=== PATIENT | female | born 1935 | race Caucasian/White ===

== ENCOUNTER 2018-01-11 02:23 | Inpatient (IN) | payer MEDICARE, MEDICAID ==
[2018-01-11] VITALS (8 sets, daily range): BP systolic 126–154; BP diastolic 53–101
[~2018-01-11] VITALS: Ht 157.5 cm; Wt 43.6 kg
[~2018-01-11 02:23] MED LIST: ACETAMINOP160 MG/5 M ORAL; ADULT WAL-100 MG/5 M ORAL; BISACODYL5 MG ORAL; GLYTROL250 ML PO; HUMALOG100 UNIT/4 SUBQ; IPRATROPIU0.2 MG/1 M HHN; LOVENOX10 M4 SUBQ; MILK OF MA400 MG/51 ORAL; MULTIVITAMINS1 EAC8 ORAL; NEXIUM40 M2 ORAL; PRO-STAT PROFI887 ML PO; SENNA8.6 M2 PO; TRAMADOL HCL50 MG ORAL; VITAMIN C500 M1 ORAL; XOPENEX1.25 MG/3 HHN; ZINC SULFATE220 M1 ORAL
--- NOTE | 2018-01-11 02:29 | Emergency Room Report ---
History of Present Illness General Chief Complaint: Dyspnea/Respdistress Source: Medical Record, EMS Present Illness HPI This is an unfortunate 82-year-old female from a long-term. She has history of COPD, hypertension, CVA with contractures. She presents with chief complaint of respiratory distress. Per EMS, long-term noted that she was decreasing her saturation and they said that her saturation was in the 60 percentile. EMS was bagging her and put her on oxygen. Onset tonight. She had recently been discharged from [facility] for sepsis with aspiration pneumonia on the left lung. Unable to get any history from this patient because of her condition and she is nonverbal. Unknown CODE status. Allergies: Coded Allergies: No Known Allergies (Verified , 03/10/07) Patient History Past Medical History: see triage record, old chart reviewed, HTN, COPD, CVA/TIA Past Surgical History: other Pertinent Family History: none Social History: Denies: smoking Now: No Immunizations: other Reviewed Nursing Documentation: PMH: Agreed; PSxH: Agreed Nursing Documentation-PMH Past Medical History: No History, Except For Hx Hypertension: Yes - pulmonary HTN Hx COPD: Yes Hx Diabetes: Yes Hx Cerebrovascular Accident: Yes Review of Systems Respiratory: Reports: shortness of breath All Other Systems: limited - secondary to her condition Physical Exam Vital Signs Date Time Temp Pulse Resp B/P (MAP) Pulse Ox O2 Delivery O2 Flow Rate FiO2 01/11/18 02:04 122 26 126/101 91 Bi-pap 100 Sp02 EP Interpretation: reviewed, abnormal General Appearance: cachetic, lethargic, Chronically Ill Head: normocephalic, atraumatic Eyes: bilateral eye PERRL, bilateral eye EOMI ENT: dry mucus membranes Neck: full range of motion, supple, no meningismus Respiratory: chest non-tender, respiratory distress, decreased breath sounds - greatly dimished on left, accessory muscle use, rhonchi Cardiovascular #1: regular rate, rhythm, no murmur Gastrointestinal: normal bowel sounds, non tender, no mass, no organomegaly, no bruit, non-distended Rectal: other - decub ulcer Musculoskeletal: other - contracted. Neurologic: other - moving left hand to grab; contracted Skin: warm/dry Procedures Critical Care Time Critical Care Time Critical care is mandated in this patient who presented with respiratory failure. Patient require my urgent intervention to attenuate the risks of respiratory collapse which may lead to cardiovascular collapse and . Critical care time is 35 minutes excluding any reportable procedure. Critical care time included evaluation, multiple reevaluation, looking at old charts, interpreting laboratory and diagnostic data, discussing case with patient and family and consultants, and charting. Medical Decision Making Diagnostic Impression: Primary Impression: Respiratory failure with hypoxia Qualified Codes: J96.21 - Acute and chronic respiratory failure with hypoxia Additional Impressions: Aspiration pneumonia Qualified Codes: J69.0 - Pneumonitis due to inhalation of food and vomit Hypokalemia Hypocalcemia Dehydration Proteinuria Qualified Codes: R80.9 - Proteinuria, unspecified UTI (urinary tract infection) Qualified Codes: N30.00 - Acute cystitis without hematuria ER Course Patient presents with acute on chronic respiratory failure. She is much improved after IV fluid and BiPAP. Oxygenation is much better now. I suspect she also may have a mucus plugging. We'll admit for IV fluid and IV antibiotics. Based on her insurance, will admit to Dr.Da Agarwal. Laboratory Tests Test 01/11/18 02:15 01/11/18 02:24 01/11/18 02:30 White Blood Count 12.8 K/UL (4.8-10.8) H Red Blood Count 5.31 M/UL (4.20-5.40) Hemoglobin 14.9 G/DL (12.0-16.0) Hematocrit 46.2 % (37.0-47.0) Mean Corpuscular Volume 87 FL (80-99) Mean Corpuscular Hemoglobin 28.0 PG (27.0-31.0) Mean Corpuscular Hemoglobin Concent 32.2 G/DL (32.0-36.0) Red Cell Distribution Width 15.5 % (11.6-14.8) H Platelet Count 384 K/UL (150-450) Mean Platelet Volume 7.7 FL (6.5-10.1) Neutrophils (%) (Auto) 80.0 % (45.0-75.0) H Lymphocytes (%) (Auto) 14.5 % (20.0-45.0) L Monocytes (%) (Auto) 4.1 % (1.0-10.0) Eosinophils (%) (Auto) 0.5 % (0.0-3.0) Basophils (%) (Auto) 0.9 % (0.0-2.0) Prothrombin Time Pending Prothromb Time International Ratio Pending Activated Partial Thromboplast Time Pending Sodium Level 151 MMOL/L (136-145) H Potassium Level 2.4 MMOL/L (3.5-5.1) *L Chloride Level 122 MMOL/L (98-107) H Carbon Dioxide Level 19 MMOL/L (21-32) L Anion Gap 10 mmol/L (5-15) Blood Urea Nitrogen 19 mg/dL (7-18) H Creatinine 0.2 MG/DL (0.55-1.30) L Estimat Glomerular Filtration Rate mL/min (>60) Glucose Level 93 MG/DL (74-106) Lactic Acid Level 1.80 mmol/L (0.66-2.22) Calcium Level 4.6 MG/DL (8.5-10.1) *L Total Bilirubin 0.0 MG/DL (0.2-1.0) L Aspartate Amino Transf (AST/SGOT) 12 U/L (15-37) L Alanine Aminotransferase (ALT/SGPT) 7 U/L (12-78) L Alkaline Phosphatase 47 U/L (46-116) Total Creatine Kinase 23 U/L (26-308) L Creatine Kinase MB 1.5 NG/ML (0.0-3.6) Creatine Kinase MB Relative Index 6.5 Troponin I 0.000 ng/mL (0.000-0.056) Total Protein 4.1 G/DL (6.4-8.2) L Albumin 1.2 G/DL (3.4-5.0) L Globulin 2.9 g/dL Albumin/Globulin Ratio 0.4 (1.0-2.7) L Arterial Blood pH 7.415 (7.350-7.450) Arterial Blood Partial Pressure CO2 46.8 mmHg (35.0-45.0) H Arterial Blood Partial Pressure O2 102.5 mmHg (75.0-100.0) H Arterial Blood HCO3 29.3 mmol/L (22.0-26.0) H Arterial Blood Oxygen Saturation 97.5 % (92.0-98.0) Arterial Blood Base Excess 3.9 Kang Test Positive Urine Color Yellow Urine Appearance Slightly cloudy Urine pH 5 (4.5-8.0) Urine Specific [place] 1.025 (1.005-1.035) Urine Protein 3+ (NEGATIVE) H Urine Glucose (UA) Negative (NEGATIVE) Urine Ketones Negative (NEGATIVE) Urine Occult Blood 2+ (NEGATIVE) H Urine Nitrite Negative (NEGATIVE) Urine Bilirubin Negative (NEGATIVE) Urine Urobilinogen Normal MG/DL (0.0-1.0) Urine Leukocyte Esterase 3+ (NEGATIVE) H Urine RBC 2-4 /HPF (0 - 2) H Urine WBC 40-60 /HPF (0 - 2) H Urine Squamous Epithelial Cells Many /LPF (NONE/OCC) H Urine Calcium Oxalate Crystals Many /LPF (NONE) Urine Bacteria Few /HPF (NONE) Lab Results Impression labs with electrolyte abnormalities EKG Diagnostic Results Rate: tachycardiac Rhythm: NSR ST Segments: no acute changes Rhythm Strip Diag. Results Rhythm Strip Time: 02:29 Rate: 85 Rhythm: NSR, no PVC's, no ectopy Chest X-Ray Diagnostic Results Chest X-Ray Diagnostic Results : Chest X-Ray Ordered: Yes # of Views/Limited/Complete: 1 View Indication: Shortness of Breath EP Interpretation: Yes Interpretation: no effusion, no pneumothorax, other - hyperinflated. rll infiltrate Impression: Other - rll infiltrate Electronically Signed by: Vik Ghotra MD Last Vital Signs Date Time Temp Pulse Resp B/P (MAP) Pulse Ox O2 Delivery O2 Flow Rate FiO2 01/11/18 02:04 122 26 126/101 91 Bi-pap 100 Status: improved Disposition: ADMITTED INPATIENT Condition: Serious VIK GHOTRA M.D. January 11, 2018 02:29
[2018-01-11] MEDS ORDERED: Albuterol ud Inhalation HHN ONE (02:30)
[2018-01-11] MEDS ORDERED: NS 1000ml 1,400 ML IVLG ONE (02:30)
[2018-01-11 02:44] LABS: BASOPHILS % (AUTO) 0.9 % (0.0-2.0); EOSINOPHILS % (AUTO) 0.5 % (0.0-3.0); HEMATOCRIT 46.2 % (37.0-47.0); HEMOGLOBIN 14.9 G/DL (12.0-16.0); LYMPHOCYTES % (AUTO) 14.5 % (20.0-45.0); MEAN CORPUSCULAR VOLUME 87 FL (80-99); MONOCYTES % (AUTO) 4.1 % (1.0-10.0); PLATELET COUNT 384 K/UL (150-450); RED BLOOD COUNT 5.31 M/UL (4.20-5.40); RED CELL DISTRIBUTION WIDTH 15.5 % (11.6-14.8); WHITE BLOOD COUNT 12.8 K/UL (4.8-10.8)
[2018-01-11 02:45] LABS: BILIRUBIN, URINE NEGATIVE (NEGATIVE); GLUCOSE, URINE (UA) NEGATIVE (NEGATIVE); KETONES,URINE NEGATIVE (NEGATIVE); LEUKOCYTE ESTERASE ,URINE 3+ (NEGATIVE); NITRITE,URINE NEGATIVE (NEGATIVE); PH,URINE 5 (4.5-8.0); PROTEIN,URINE 3+ (NEGATIVE); UROBILINOGEN,URINE NORMAL MG/DL (0.0-1.0)
[2018-01-11 02:53] LABS: COLOR,URINE YELLOW
[2018-01-11 02:58] LABS: APPEARANCE,URINE SLIGHTLY CLOUDY
[2018-01-11 03:06] LABS: ALANINE AMINOTRANSFERASE 7 U/L (12-78); ALBUMIN 1.2 G/DL (3.4-5.0); ALBUMIN/GLOBULIN RATIO 0.4 (1.0-2.7); ALKALINE PHOSPHATASE 47 U/L (46-116); ANION GAP 10 mmol/L (5-15); ASPARTATE AMINO TRANSFERASE 12 U/L (15-37); BLOOD UREA NITROGEN 19 mg/dL (7-18); CARBON DIOXIDE 19 MMOL/L (21-32); CHLORIDE 122 MMOL/L (98-107); CKMB 1.5 NG/ML (0.0-3.6); CREATINE KINASE 23 U/L (26-308); CREATININE 0.2 MG/DL (0.55-1.30); SODIUM 151 MMOL/L (136-145)
[2018-01-11 03:08] LABS: POTASSIUM 2.4 MMOL/L (3.5-5.1)
[2018-01-11 03:30] LABS: CALCIUM 4.6 MG/DL (8.5-10.1)
[2018-01-11] MEDS ORDERED: Cefepime HCl 2 GM in D5W 55 ML IVPB ONE (03:30)
[2018-01-11 04:32] LABS: INR 0.9 (0.9-1.1)
[2018-01-11] MEDS ORDERED: Albuterol ud Inhalation HHN PRN (04:45)
[2018-01-11] MEDS ORDERED: Calcium Gluconate 1gm/10ml vial IVP ONE (04:45)
[2018-01-11] MEDS: Heparin 5000 units/ml inj SUBQ SCH ×3 (06:52→21:43)
[2018-01-11] MEDS: Albuterol/Ipratropium 3ml neb HHN SCH ×3 (07:06→19:07)
--- NOTE | 2018-01-11 08:42 | Diagnostic Imaging Report ---
Indication: Reason For Exam: SOB Technique: XRAY Chest 1v Comparison:05/25/2011 Findings: The patient is severely rotated. The aorta is calcified. There is some patchy infiltrate or atelectasis in the right base. The remainder the lungs are grossly clear. No pleural fluid. The bones are diffusely osteopenic. Impression: Atherosclerotic change. Patchy infiltrate or atelectasis right base. Osteopenia.
[2018-01-11] MEDS ORDERED: Docusate 100mg cap ORAL SCH (09:00)
[2018-01-11] MEDS: Aspirin Baby 81mg ORAL SCH (10:06)
[2018-01-11] MEDS ORDERED: NovoLOG Insulin Flexpen SUBQ SCH (11:30)
[2018-01-11 11:36] LABS: ANION GAP 7 mmol/L (5-15); BLOOD UREA NITROGEN 23 mg/dL (7-18); CALCIUM 8.3 MG/DL (8.5-10.1); CARBON DIOXIDE 27 MMOL/L (21-32); CHLORIDE 110 MMOL/L (98-107); CREATININE 0.4 MG/DL (0.55-1.30); POTASSIUM 4.9 MMOL/L (3.5-5.1); SODIUM 143 MMOL/L (136-145)
[2018-01-11] MEDS: Docusate 100mg/10ml Liq GT SCH ×2 (13:42→20:48)
[2018-01-11] MEDS ORDERED: 1/2 NS 1000ml IV ONE (16:26)
--- NOTE | 2018-01-11 16:45 | History and Physical Report ---
DATE OF ADMISSION: 01/11/2018 REASON FOR ADMISSION: 1. Shortness of breath. 2. Pneumonia. 3. Electrolyte abnormalities. HISTORY OF PRESENT ILLNESS: The patient is an 82-year-old female from a intermediate home with known COPD, hypertension, CVA and contractures. She presented in respiratory distress and shortness of breath. EMS was sent to the [place] [facility] and noted she had desaturation of her O2 saturations in the 60 percentile range. EMS did start with oxygen supplementation and she had been recently discharged from [facility] for sepsis secondary to aspiration pneumonia. The patient has an unknown code status. At this time, she has been placed on BiPAP and is in the [facility], currently stable, being treated with IV antibiotics and on noninvasive positive pressure ventilation. ALLERGIES: No known drug allergies. PAST MEDICAL HISTORY: 1. Hypertension. 2. COPD. 3. Contractures. 4. CVA/TIA. SOCIAL HISTORY: No current tobacco, alcohol, or illicit drug use. PAST SURGICAL HISTORY: Noncontributory. FAMILY HISTORY: Unknown. REVIEW OF SYSTEMS: Cannot obtain, as the patient is on BiPAP and not answering questions. LABORATORY AND DIAGNOSTIC DATA: Labs dated 01/11/2018 potassium 2.4, sodium 151, CO2 19, creatinine 0.2, BUN 19, calcium 4.6. Normal LFTs. Troponin of 0. Albumin 1.2. Hemoglobin 14.9, white cell count 12.8, and platelet count 384. PHYSICAL EXAMINATION: GENERAL: The patient in mild respiratory distress, on noninvasive positive pressure ventilation. HEENT: Extraocular muscles intact. No lymphadenopathy noted. CARDIOVASCULAR: S1, S2. No rubs, gallops. PULMONARY: Mild upper airway rhonchi with basilar crackles. ABDOMEN: Nondistended, nontender. EXTREMITIES: No edema noted. Contractures noted. VITAL SIGNS: Blood pressure 154/53, temperature 97.5, pulse 87, on BiPAP FiO2 of 100. ASSESSMENT AND PLAN: 1. Nosocomial acquired pneumonia. Recent discharge from [facility]. Chest x-ray done shows the possibility of patchy infiltrates, pneumonia at the right lung base. The patient will be started on intravenous antibiotics and currently on BiPAP. Consultation to Pulmonary Critical Care Dr. Coronado has been placed for further evaluation and management. 2. Electrolyte abnormalities consisting of hypocalcemia and hypokalemia. At this time, the patient is being replaced with calcium and potassium. We will repeat labs at 11 a.m. 3. Hypernatremia with a serum sodium 151. Patient on hypotonic intravenous fluids. Repeat labs at 11 a.m. today. 4. Deep venous thrombosis prophylaxis with heparin subcutaneous. 5. Respiratory failure secondary to hypercapnic, etiology with underlying pneumonia. BiPAP in place. Await Pulmonary Critical Care for further evaluation and management. Jorge Graf MD DR: ELMER JOB#: [id number] CC: SMOOTH
[2018-01-11] MEDS: NovoLOG Insulin Flexpen SUBQ SCH (17:06)
--- NOTE | 2018-01-11 23:15 | Consultation ---
DATE OF CONSULTATION: 01/11/2018 PULMONARY CONSULTATION CONSULTING PHYSICIAN: Chase Coronado M.D. REFERRING PHYSICIAN: Jorge Graf MD REASON FOR CONSULTATION: COPD and pneumonia. HISTORY OF PRESENT ILLNESS: This is an 82-year-old female, a residential patient with a known history of COPD. The patient complains of shortness of breath and pneumonia. The patient noted to have significant oxygen desaturation and upon arrival was placed on oxygen. The patient has been admitted for sepsis and pneumonia to an outside facility. The patient placed on BiPAP, sent to [facility], started on IV antibiotics. I was called to assist and evaluate further. The patient is slightly tachypneic at present. The patient is now off BiPAP on recent evaluation in face mask. The patient's care discussed and reviewed. The patient's oxygen needs reviewed. The patient is requiring significant amount of oxygen at present. The patient is a poor historian. Care discussed and reviewed. PAST MEDICAL HISTORY: Notable for COPD, contractures, CVA, TIA. PAST SURGICAL HISTORY: Otherwise unknown. SOCIAL HISTORY: Nonsmoker and nondrinker. The patient is retired. FAMILY HISTORY: Otherwise unknown. REVIEW OF SYSTEMS: Unobtainable. PHYSICAL EXAMINATION: GENERAL: The patient is an ill-appearing female. VITAL SIGNS: Blood pressure 145/60, pulse 92, respiratory rate 24, saturation 99%, temperature 98. HEENT: Negative. NECK: Supple. LUNGS: With scattered rhonchi moderate. Air entry reduced. CARDIAC: Normal S1, S2. Regular rate and rhythm. Soft systolic murmur at left parasternal border. ABDOMEN: Soft, nontender EXTREMITIES: No cyanosis or clubbing. SKIN: Noted and reviewed. LABORATORY DATA: Lab data reviewed. White cell count 12.8, hematocrit 46, and platelets of 384. Chemistries noted BUN 23, creatinine 0.4, potassium 4.9. Arterial blood gases notable for pH 7.41, pCO2 46, pO2 102. Chest x-ray revealed infiltrate. IMPRESSION: Profound hypoxemia, underlying pneumonia, possible mucous plugging. Concern for risk of DVT. No clear evidence of fluid overload,advanced age, dementia. RECOMMENDATIONS: Supportive care. IV hydration with caution. DVT prophylaxis. Levaquin written. We will give additional antibiotics, place the patient on vancomycin as well. Obtain a stat venous ultrasound, followup x-ray and taper FiO2. I will follow clinically and monitor. Low threshold for ICU. Chase Coronado M.D. DR: NICHOL JOB#: [id number] CC: SMOOTH
[2018-01-12] VITALS: BP 150/80
[2018-01-12] MEDS: Albuterol/Ipratropium 3ml neb HHN SCH ×4 (00:32→19:43)
[2018-01-12 03:16] LABS: BASOPHILS % (AUTO) 0.9 % (0.0-2.0); EOSINOPHILS % (AUTO) 0.8 % (0.0-3.0); HEMATOCRIT 38.1 % (37.0-47.0); HEMOGLOBIN 12.2 G/DL (12.0-16.0); LYMPHOCYTES % (AUTO) 11.2 % (20.0-45.0); MEAN CORPUSCULAR VOLUME 87 FL (80-99); MONOCYTES % (AUTO) 4.9 % (1.0-10.0); NEUTROPHILS % (AUTO) 82.3 % (45.0-75.0); PLATELET COUNT 270 K/UL (150-450); RED BLOOD COUNT 4.38 M/UL (4.20-5.40); RED CELL DISTRIBUTION WIDTH 14.9 % (11.6-14.8); WHITE BLOOD COUNT 11.3 K/UL (4.8-10.8)
[2018-01-12 03:35] LABS: ANION GAP 5 mmol/L (5-15); BLOOD UREA NITROGEN 14 mg/dL (7-18); CALCIUM 8.4 MG/DL (8.5-10.1); CARBON DIOXIDE 28 MMOL/L (21-32); CHLORIDE 105 MMOL/L (98-107); CREATININE 0.4 MG/DL (0.55-1.30); SODIUM 138 MMOL/L (136-145)
[2018-01-12 04:00] VITALS: BP 145/85
[2018-01-12] MEDS: NovoLOG Insulin Flexpen SUBQ SCH ×4 (06:00→17:07)
[2018-01-12] MEDS: Heparin 5000 units/ml inj SUBQ SCH ×3 (06:07→21:57)
[2018-01-12 08:00] VITALS: BP 146/71
[2018-01-12] MEDS: Docusate 100mg/10ml Liq GT SCH ×2 (08:02→20:36)
[2018-01-12] MEDS: Aspirin Baby 81mg ORAL SCH (08:02)
--- NOTE | 2018-01-12 08:19 | Nephrology Progress Note ---
Assessment/Plan Assessment/Plan 1. Resp FL- Nosocomial PNA - on BiPAP, appreciate Pulm assistance, Abx initiated - full code and low threshold for ICU tx 2. PNA- Abx 3. Nutrition- on TF's, will DC IVF's 4. DM- Glucerna and ISS 5. DVT Prophylaxis with heparin sub q Subjective Date patient seen: January 12, 2018 Time patient seen: 08:16 ROS Limited/Unobtainable: Yes Respiratory: Reports: shortness of breath Allergies: Coded Allergies: No Known Allergies (Verified , 03/10/07) Subjective Patient remains on NIPPV Objective Last 24 Hour Vital Signs Date Time Temp Pulse Resp B/P (MAP) Pulse Ox O2 Delivery O2 Flow Rate FiO2 01/12/18 08:00 50 01/12/18 07:17 85 29 99 Bi-pap 80 01/12/18 07:12 85 25 99 Facial 50 01/12/18 07:12 83 22 99 Bi-pap 80 01/12/18 04:58 94 29 99 Facial 80 01/12/18 04:00 98.8 93 24 145/85 99 80 98.8 01/12/18 04:00 80 01/12/18 04:00 90 01/12/18 03:06 87 29 100 Facial 80 01/12/18 00:43 84 32 99 Bi-pap 100 01/12/18 00:32 76 22 99 Bi-pap 100 01/12/18 00:32 76 22 99 Facial 100 01/12/18 00:00 68 01/12/18 00:00 98.4 79 24 150/80 99 100 98.4 01/11/18 22:55 81 33 99 Facial 100 01/11/18 20:44 67 28 100 Facial 100 01/11/18 20:00 70 01/11/18 20:00 97.7 94 24 142/90 99 100 97.7 01/11/18 20:00 100 01/11/18 19:16 88 26 99 Bi-pap 100 01/11/18 19:08 78 23 99 Bi-pap 100 01/11/18 19:07 73 22 99 Facial 100 01/11/18 17:33 100 01/11/18 17:05 99 100 01/11/18 17:00 85 70 01/11/18 16:59 98.0 92 24 145/60 99 70 98.0 01/11/18 16:34 78 29 100 Facial 70 01/11/18 16:00 83 01/11/18 15:24 83 30 100 Facial 80 01/11/18 13:40 85 34 100 Bi-pap 100 01/11/18 13:28 88 23 98 Facial 100 01/11/18 13:28 85 23 98 Bi-pap 100 01/11/18 13:15 100 100 01/11/18 13:00 100 01/11/18 13:00 72 50 01/11/18 12:15 98.0 110 26 154/53 98 Bi-pap 60 98.0 01/11/18 12:00 50 01/11/18 11:58 96 01/11/18 11:23 88 36 98 Facial 50 01/11/18 11:00 50 01/11/18 11:00 99 60 01/11/18 10:00 60 01/11/18 09:25 86 40 100 Facial 60 Intake and Output 01/11/18 01/12/18 19:00 07:00 Intake Total 525 ml 1273 ml Output Total 1000 ml 900 ml Balance -475 ml 373 ml Free Water 290 ml 0 ml IV Total 75 ml 833 ml Tube Feeding 160 ml 440 ml Output Urine Total 1000 ml 900 ml # Bowel Movements 4 Laboratory Tests 01/11/18 11:10: Sodium Level 143, Potassium Level 4.9#, Chloride Level 110H, Carbon Dioxide Level 27, Anion Gap 7, Blood Urea Nitrogen 23H, Creatinine 0.4#L, Estimat Glomerular Filtration Rate , Glucose Level 98, Calcium Level 8.3#L, Magnesium Level 1.9 01/12/18 02:30: Sodium Level 138, Potassium Level 4.0, Chloride Level 105, Carbon Dioxide Level 28, Anion Gap 5, Blood Urea Nitrogen 14, Creatinine 0.4L, Estimat Glomerular Filtration Rate , Glucose Level 116H, Calcium Level 8.4L, White Blood Count 11.3H, Red Blood Count 4.38, Hemoglobin 12.2, Hematocrit 38.1, Mean Corpuscular Volume 87, Mean Corpuscular Hemoglobin 27.9, Mean Corpuscular Hemoglobin Concent 32.0, Red Cell Distribution Width 14.9H, Platelet Count 270, Mean Platelet Volume 7.8, Neutrophils (%) (Auto) 82.3H, Lymphocytes (%) (Auto) 11.2L , Monocytes (%) (Auto) 4.9, Eosinophils (%) (Auto) 0.8, Basophils (%) (Auto) 0.9 Height (Feet): 5 Height (Inches): 2.00 Weight (Pounds): 99 General Appearance: confused EENT: PERRL/EOMI Neck: normal alignment, supple Cardiovascular: normal rate, regular rhythm Respiratory/Chest: no accessory muscle use, rhonchi - bilaterally Edema: no edema noted Arm (L), no edema noted Arm (R), no edema noted Leg (L), no edema noted Leg (R), no edema noted Pedal (L), no edema noted Pedal (R), no edema noted Generalized Jorge Graf M.D. January 12, 2018 08:19
--- NOTE | 2018-01-12 11:45 | Pulmonology Progress Note ---
Assessment/Plan Assessment/Plan IMPRESSION: Profound hypoxemia, underlying pneumonia, possible mucous plugging. Concern for risk of DVT. advanced age, dementia. acute on chronic encephalopathy PLAN care as is respiratory care venous US ordered CXR and ABG repeat ordered antibiotics check cultures monitor as is impression, plan, and exam edited and reviewed in detail care discussed with RN Subjective ROS Limited/Unobtainable: Yes Allergies: Coded Allergies: No Known Allergies (Verified , 03/10/07) Subjective on BIPAP earlier now on face mask with improved oxygenation Objective Last 24 Hour Vital Signs Date Time Temp Pulse Resp B/P (MAP) Pulse Ox O2 Delivery O2 Flow Rate FiO2 01/12/18 10:31 75 29 100 Facial 50 01/12/18 08:46 81 28 95 Facial 100 01/12/18 08:00 97.7 73 16 146/71 96 50 97.7 01/12/18 08:00 94 01/12/18 08:00 50 01/12/18 07:17 85 29 99 Bi-pap 80 01/12/18 07:12 85 25 99 Facial 50 01/12/18 07:12 83 22 99 Bi-pap 80 01/12/18 04:58 94 29 99 Facial 80 01/12/18 04:00 98.8 93 24 145/85 99 80 98.8 01/12/18 04:00 80 01/12/18 04:00 90 01/12/18 03:06 87 29 100 Facial 80 01/12/18 00:43 84 32 99 Bi-pap 100 01/12/18 00:32 76 22 99 Bi-pap 100 01/12/18 00:32 76 22 99 Facial 100 01/12/18 00:00 68 01/12/18 00:00 98.4 79 24 150/80 99 100 98.4 01/11/18 22:55 81 33 99 Facial 100 01/11/18 20:44 67 28 100 Facial 100 01/11/18 20:00 70 01/11/18 20:00 97.7 94 24 142/90 99 100 97.7 01/11/18 20:00 100 01/11/18 19:16 88 26 99 Bi-pap 100 01/11/18 19:08 78 23 99 Bi-pap 100 01/11/18 19:07 73 22 99 Facial 100 01/11/18 17:33 100 01/11/18 17:05 99 100 5/28/18 17:00 85 70 01/11/18 16:59 98.0 92 24 145/60 99 70 98.0 01/11/18 16:34 78 29 100 Facial 70 01/11/18 16:00 83 01/11/18 15:24 83 30 100 Facial 80 01/11/18 13:40 85 34 100 Bi-pap 100 01/11/18 13:28 88 23 98 Facial 100 01/11/18 13:28 85 23 98 Bi-pap 100 01/11/18 13:15 100 100 01/11/18 13:00 100 01/11/18 13:00 72 50 01/11/18 12:15 98.0 110 26 154/53 98 Bi-pap 60 98.0 01/11/18 12:00 50 01/11/18 11:58 96 Intake and Output 01/11/18 01/12/18 19:00 07:00 Intake Total 525 ml 1273 ml Output Total 1000 ml 900 ml Balance -475 ml 373 ml Free Water 290 ml 0 ml IV Total 75 ml 833 ml Tube Feeding 160 ml 440 ml Output Urine Total 1000 ml 900 ml # Bowel Movements 4 Objective GENERAL: The patient is an ill-appearing female. reduced LOC. HEENT: Negative. NECK: Supple. LUNGS: + rhonchi moderate. Air entry reduced. CARDIAC: Normal S1, S2. Regular rate and rhythm. Soft systolic murmur at left parasternal border. ABDOMEN: Soft, nontender. GT and no distention EXTREMITIES: No cyanosis or clubbing. SKIN: Noted and reviewed. Microbiology Date/Time Source Procedure Growth Status 01/11/18 02:30 Blood Blood Culture - Preliminary NO GROWTH AFTER 24 HOURS Resulted 01/11/18 02:15 Blood Blood Culture - Preliminary NO GROWTH AFTER 24 HOURS Resulted 01/11/18 02:30 Urine,Clean Catch Urine Culture - Preliminary NO GROWTH Resulted Laboratory Tests 01/12/18 02:30: White Blood Count 11.3H, Red Blood Count 4.38, Hemoglobin 12.2, Hematocrit 38.1 , Mean Corpuscular Volume 87, Mean Corpuscular Hemoglobin 27.9, Mean Corpuscular Hemoglobin Concent 32.0, Red Cell Distribution Width 14.9H, Platelet Count 270, Mean Platelet Volume 7.8, Neutrophils (%) (Auto) 82.3H, Lymphocytes (%) (Auto) 11.2L, Monocytes (%) (Auto) 4.9, Eosinophils (%) (Auto) 0.8, Basophils (%) (Auto) 0.9, Sodium Level 138, Potassium Level 4.0, Chloride Level 105, Carbon Dioxide Level 28, Anion Gap 5, Blood Urea Nitrogen 14, Creatinine 0.4L, Estimat Glomerular Filtration Rate , Glucose Level 116H, Calcium Level 8.4L Current Medications Medications (Trade) Dose Ordered Sig/[place] Route PRN Reason Start Time Stop Time Status Last Admin Dose Admin Acetaminophen (Tylenol) 650 mg Q4H PRN ORAL Mild Pain (Pain Scale 1-3) 01/11/18 04:45 02/10/18 04:44 Albuterol Sulfate (Proventil) 2.5 mg Q6H PRN HHN Shortness of Breath 01/11/18 04:45 01/16/18 04:44 Albuterol/ Ipratropium (Albuterol/ Ipratropium) 3 ml EVERY 6 HOURS HHN 01/11/18 06:00 01/16/18 05:59 01/12/18 07:13 Aspirin (ASA) 81 mg DAILY ORAL 01/11/18 09:00 02/10/18 08:59 01/12/18 08:02 Dextrose (Dextrose 50%) 25 ml STAT PRN IV Hypoglycemia 01/11/18 04:45 02/10/18 04:44 Dextrose (Dextrose 50%) 50 ml STAT PRN IV Hypoglycemia 01/11/18 04:45 02/10/18 04:44 Docusate Sodium (Colace) 100 mg EVERY 12 HOURS GT 01/11/18 11:00 02/10/18 10:59 01/11/18 20:48 Heparin Sodium (Porcine) (Heparin 5000 units/ml) 5,000 units EVERY 8 HOURS SUBQ 01/11/18 06:00 02/10/18 05:59 01/12/18 06:07 Insulin Aspart (NovoLOG) EVERY 6 HOURS SUBQ 01/11/18 18:00 02/10/18 11:29 Levofloxacin 150 ml @ 100 mls/hr Q48H IVPB 01/13/18 04:00 01/20/18 03:59 Ondansetron HCl (Zofran) 4 mg Q6H PRN IVP Nausea & Vomiting 01/11/18 04:45 02/10/18 04:44 Chase Coronado MD January 12, 2018 11:45
[2018-01-12 12:00] VITALS: BP 130/77
--- NOTE | 2018-01-12 12:39 | Infectious Diseases Prog Note ---
Assessment/Plan Problems: (1) Aspiration pneumonia Assessment & Plan: will send sputum culture and start vancomycin with zosyn empiric coverage , monitor CXR, with aspiration precaution and keep HOB > 30 degree all the time (2) Sacral wound Assessment & Plan: will order culture, keep off loading, recommend local wound care and dressing change . will start wide spectrum antibiotics (3) UTI (urinary tract infection) Assessment & Plan: will start zosyn pending culture result (4) Sepsis Assessment & Plan: due to the above, will start vancomycin and zosyn empirically pending final blood culture result . will obtain 2D echo to rule out any valve vegetations (5) Respiratory failure with hypoxia Assessment & Plan: due to the above, continue high flow oxygen, monitor CXR and ABG, pulmonary is following Subjective Allergies: Coded Allergies: No Known Allergies (Verified , 03/10/07) Objective Vital Signs Last 24 Hour Vital Signs Date Time Temp Pulse Resp B/P (MAP) Pulse Ox O2 Delivery O2 Flow Rate FiO2 01/12/18 12:00 50 01/12/18 10:31 75 29 100 Facial 50 01/12/18 08:46 81 28 95 Facial 100 01/12/18 08:00 97.7 73 16 146/71 96 50 97.7 01/12/18 08:00 94 01/12/18 08:00 50 01/12/18 07:17 85 29 99 Bi-pap 80 01/12/18 07:12 85 25 99 Facial 50 01/12/18 07:12 83 22 99 Bi-pap 80 01/12/18 04:58 94 29 99 Facial 80 01/12/18 04:00 98.8 93 24 145/85 99 80 98.8 01/12/18 04:00 80 01/12/18 04:00 90 01/12/18 03:06 87 29 100 Facial 80 01/12/18 00:43 84 32 99 Bi-pap 100 01/12/18 00:32 76 22 99 Bi-pap 100 01/12/18 00:32 76 22 99 Facial 100 01/12/18 00:00 68 01/12/18 00:00 98.4 79 24 150/80 99 100 98.4 01/11/18 22:55 81 33 99 Facial 100 01/11/18 20:44 67 28 100 Facial 100 01/11/18 20:00 70 01/11/18 20:00 97.7 94 24 142/90 99 100 97.7 01/11/18 20:00 100 01/11/18 19:16 88 26 99 Bi-pap 100 01/11/18 19:08 78 23 99 Bi-pap 100 01/11/18 19:07 73 22 99 Facial 100 01/11/18 17:33 100 01/11/18 17:05 99 100 01/11/18 17:00 85 70 01/11/18 16:59 98.0 92 24 145/60 99 70 98.0 01/11/18 16:34 78 29 100 Facial 70 01/11/18 16:00 83 01/11/18 15:24 83 30 100 Facial 80 01/11/18 13:40 85 34 100 Bi-pap 100 01/11/18 13:28 88 23 98 Facial 100 01/11/18 13:28 85 23 98 Bi-pap 100 01/11/18 13:15 100 100 01/11/18 13:00 100 01/11/18 13:00 72 50 Height (Feet): 5 Height (Inches): 2.00 Weight (Pounds): 99 Microbiology Date/Time Source Procedure Growth Status 01/11/18 02:30 Blood Blood Culture - Preliminary Resulted 01/11/18 02:15 Blood Blood Culture - Preliminary Resulted 01/11/18 02:30 Urine,Clean Catch Urine Culture - Preliminary NO GROWTH Resulted Laboratory Tests Test 01/12/18 02:30 01/12/18 11:50 White Blood Count 11.3 K/UL (4.8-10.8) H Red Blood Count 4.38 M/UL (4.20-5.40) Hemoglobin 12.2 G/DL (12.0-16.0) Hematocrit 38.1 % (37.0-47.0) Mean Corpuscular Volume 87 FL (80-99) Mean Corpuscular Hemoglobin 27.9 PG (27.0-31.0) Mean Corpuscular Hemoglobin Concent 32.0 G/DL (32.0-36.0) Red Cell Distribution Width 14.9 % (11.6-14.8) H Platelet Count 270 K/UL (150-450) Mean Platelet Volume 7.8 FL (6.5-10.1) Neutrophils (%) (Auto) 82.3 % (45.0-75.0) H Lymphocytes (%) (Auto) 11.2 % (20.0-45.0) L Monocytes (%) (Auto) 4.9 % (1.0-10.0) Eosinophils (%) (Auto) 0.8 % (0.0-3.0) Basophils (%) (Auto) 0.9 % (0.0-2.0) Sodium Level 138 MMOL/L (136-145) Potassium Level 4.0 MMOL/L (3.5-5.1) Chloride Level 105 MMOL/L (98-107) Carbon Dioxide Level 28 MMOL/L (21-32) Anion Gap 5 mmol/L (5-15) Blood Urea Nitrogen 14 mg/dL (7-18) Creatinine 0.4 MG/DL (0.55-1.30) L Estimat Glomerular Filtration Rate mL/min (>60) Glucose Level 116 MG/DL (74-106) H Calcium Level 8.4 MG/DL (8.5-10.1) L Arterial Blood pH 7.446 (7.350-7.450) Arterial Blood Partial Pressure CO2 43.3 mmHg (35.0-45.0) Arterial Blood Partial Pressure O2 109.0 mmHg (75.0-100.0) H Arterial Blood HCO3 29.1 mmol/L (22.0-26.0) H Arterial Blood Oxygen Saturation 98.1 % (92.0-98.0) H Arterial Blood Base Excess 4.6 Kang Test Positive Current Medications Medications (Trade) Dose Ordered Sig/Rosetta Route PRN Reason Start Time Stop Time Status Last Admin Dose Admin Acetaminophen (Tylenol) 650 mg Q4H PRN ORAL Mild Pain (Pain Scale 1-3) 01/11/18 04:45 02/10/18 04:44 Albuterol Sulfate (Proventil) 2.5 mg Q6H PRN HHN Shortness of Breath 01/11/18 04:45 01/16/18 04:44 Albuterol/ Ipratropium (Albuterol/ Ipratropium) 3 ml EVERY 6 HOURS HHN 01/11/18 06:00 01/16/18 05:59 01/12/18 07:13 Aspirin (ASA) 81 mg DAILY ORAL 01/11/18 09:00 02/10/18 08:59 01/12/18 08:02 Dextrose (Dextrose 50%) 25 ml STAT PRN IV Hypoglycemia 01/11/18 04:45 02/10/18 04:44 Dextrose (Dextrose 50%) 50 ml STAT PRN IV Hypoglycemia 01/11/18 04:45 02/10/18 04:44 Docusate Sodium (Colace) 100 mg EVERY 12 HOURS GT 01/11/18 11:00 02/10/18 10:59 01/11/18 20:48 Heparin Sodium (Porcine) (Heparin 5000 units/ml) 5,000 units EVERY 8 HOURS SUBQ 01/11/18 06:00 02/10/18 05:59 01/12/18 06:07 Insulin Aspart (NovoLOG) EVERY 6 HOURS SUBQ 01/11/18 18:00 02/10/18 11:29 01/12/18 12:00 Levofloxacin 150 ml @ 100 mls/hr Q48H IVPB 01/13/18 04:00 01/20/18 03:59 Ondansetron HCl (Zofran) 4 mg Q6H PRN IVP Nausea & Vomiting 01/11/18 04:45 02/10/18 04:44 Dom Hoffman M.D. January 12, 2018 12:39
[2018-01-12] MEDS ORDERED: Vancomycin 1gm/D5W 275ml IVPB ONE ×2 (13:30)
--- NOTE | 2018-01-12 14:36 | Diagnostic Imaging Report ---
Indication: Dyspnea Comparison: 01/11/2018 A single view chest radiograph was obtained. Findings: Suspected infiltrate at the left lung base. Small effusions not excluded. Heart size is normal. Bones are osteopenic. Aorta is moderately calcified. Gastrostomy noted. IMPRESSION: Suspicion of a left basilar pneumonia. Correlate clinically
[2018-01-12] MEDS ORDERED: Piperacillin/Tazobactam 3.375 GM in D5W 110 ML IVPB SCH (15:00)
[2018-01-12] MEDS: Zosyn 3.375gm q8h **Extended infusion IVPB SCH ×4 (15:57→21:52)
[2018-01-12 16:00] VITALS: BP 111/77
--- NOTE | 2018-01-12 17:15 | Consultation ---
DATE OF CONSULTATION: 01/12/2018 INFECTIOUS DISEASE CONSULTATION CONSULTING PHYSICIAN: Dom Hoffman M.D. REQUESTING PHYSICIAN: Jorge Graf M.D. REASON FOR CONSULTATION: Sepsis with gram-positive cocci in cluster, pneumonia and UTI. Recommendation for antibiotics treatment and further management. HISTORY OF PRESENT ILLNESS: The patient is an 82-year-old female with past medical history of CVA with residual and contractures, COPD and hypertension, [facility], was transferred to [facility] for worsening shortness of breath. The patient [facility]ating at the [facility] where [facility] and her oxygen saturation was found to be at the 60 percentile range. So, she was started on oxygen supplementation and was brought in to [facility] Emergency Room for further evaluation. The patient was recently discharged from [facility] for sepsis and aspiration pneumonia, unclear what antibiotics she received there. The patient was started on BiPAP and admitted to the [facility] unit, started on Levaquin by the admitting team. Blood culture was obtained in the emergency room and now it is growing gram-positive cocci in cluster in two sets, concerning for sepsis. So, Infectious Disease consultation was requested for further evaluation and management. As of note, the patient is poor historian, cannot provide any history. History was mainly obtained from the medical record and nursing staff. PAST MEDICAL HISTORY: Significant for hypertension, COPD, and CVA with residual and contractions. PAST SURGICAL HISTORY: PEG tube placement. ALLERGY: No known drug allergy. MEDICATIONS: She is currently on levofloxacin. For the rest of her medications, please refer to MAR. SOCIAL HISTORY: The patient lives at [facility]. No recent drugs, tobacco, or alcohol. FAMILY HISTORY: Unable to obtain. REVIEW OF SYSTEMS: Unable to obtain, the patient is poor historian. PHYSICAL EXAMINATION: GENERAL: Elderly female, demented, cachectic with contraction, on BiPAP seems comfortable, not agitated, not in distress. VITAL SIGNS: Temperature 97.3 degrees, pulse 83, respirations 20, blood pressure 130/77 and saturation 99% on 50% via facial mask. HEENT: Unable to evaluate pupils. The patient does not follow commands. Unable to see oral mucosa since she has BiPAP mask on, but normocephalic and atraumatic in general. NECK: Supple. No lymphadenopathy. CARDIOVASCULAR: She was tachycardic. S1 and S2 normal. No murmurs. LUNGS: She had diminished breathing sounds at the right lower lobe with crackles. No wheezing or rhonchi. Good inspiratory efforts. ABDOMEN: Soft, nontender, nondistended. Normal bowel sounds. No hepatosplenomegaly or ascites. No rebound. Tube feeding site looks intact. EXTREMITY: Contracted with muscle atrophy. SKIN: She had sacral wound stage III with granulation and exudate. There is membrane covering the center. No significant skin redness or erythema surrounding the wound. No foul smell or drainage. Chronic stasis dermatitis surrounding the sacral wound. She has also right foot lateral wound with scabs. There is also left hip pressure wound with good granulation at the base and mild exudative membrane. LABORATORY AND DIAGNOSTIC DATA: Labs showed white count of 11.3, hemoglobin of 12.2 and platelet count of 270. BUN of 14 and creatinine of 0.4. AST of 12 and ALT of 7. Urinalysis showed +3 leukocyte esterase, wbc 40 to 60, and few bacteria. Microbiology, blood culture x2 is growing gram-positive cocci in clusters from both bottles. Urine culture showed no growth so far. Imaging, chest x-ray showed patchy infiltrates at the right lung base. ASSESSMENT AND RECOMMENDATION: 1. Aspiration pneumonia. We will send sputum culture and start vancomycin with Zosyn empiric coverage to cover for MRSA and Pseudomonas since she is a [facility] patient. Monitor chest x-ray. Keep aspiration precaution and head off bed more than 30-degree all the time. 2. Sacral wound, does not look like infected. We will order culture. Keep offloading. Recommend local wound care and dressing change. The patient will be on wide-spectrum antibiotics mainly. 3. UTI. We will start Zosyn empiric treatment pending culture results. 4. Sepsis due to the above with gram-positive cocci in clusters, most likely Staph aureus. Source mainly the sacral wound. We will start vancomycin and Zosyn empiric coverage for now pending final blood culture results. We will obtain 2D echocardiogram to rule out any vegetation and we will repeat blood culture to confirm resolution of bacteremia. 5. Respiratory failure with hypoxemia due to the above. Continue high-flow oxygen. Monitor chest x-ray and ABG. Pulmonary team is following. Thank you for the consult. ID will continue to follow. Dom Hoffman M.D. DR: DEEPA JOB#: [id number] CC:
[2018-01-12 20:00] VITALS: BP 106/65
[2018-01-13] VITALS: BP 111/60
[2018-01-13] MEDS: NovoLOG Insulin Flexpen SUBQ SCH ×4 (00:01→17:11)
[2018-01-13] MEDS: Albuterol/Ipratropium 3ml neb HHN SCH ×4 (00:55→18:57)
[2018-01-13 03:32] VITALS: BP 132/78
[2018-01-13 04:42] LABS: BASOPHILS % (AUTO) 0.7 % (0.0-2.0); EOSINOPHILS % (AUTO) 1.2 % (0.0-3.0); HEMOGLOBIN 12.4 G/DL (12.0-16.0); MEAN CORPUSCULAR VOLUME 88 FL (80-99); MONOCYTES % (AUTO) 5.2 % (1.0-10.0); PLATELET COUNT 246 K/UL (150-450); RED BLOOD COUNT 4.33 M/UL (4.20-5.40); RED CELL DISTRIBUTION WIDTH 15.5 % (11.6-14.8); WHITE BLOOD COUNT 9.9 K/UL (4.8-10.8)
[2018-01-13 04:49] LABS: ANION GAP 5 mmol/L (5-15); BLOOD UREA NITROGEN 12 mg/dL (7-18); CALCIUM 8.9 MG/DL (8.5-10.1); CARBON DIOXIDE 32 MMOL/L (21-32); CHLORIDE 102 MMOL/L (98-107); CREATININE 0.5 MG/DL (0.55-1.30); SODIUM 139 MMOL/L (136-145)
[2018-01-13] MEDS: Zosyn 3.375gm q8h **Extended infusion IVPB SCH ×6 (05:54→22:50)
[2018-01-13] MEDS: Heparin 5000 units/ml inj SUBQ SCH ×3 (05:57→21:12)
[2018-01-13 08:00] VITALS: BP 106/56
--- NOTE | 2018-01-13 08:58 | Nephrology Progress Note ---
Assessment/Plan Assessment/Plan 1. Resp FL- Nosocomial PNA - on BiPAP and Abx. Appreciate ID and Pulm assistance 2. PNA- Abx 3. Nutrition- on TF's 4. DM- Glucerna and ISS 5. DVT Prophylaxis with heparin sub q 6. Afib- new onset, cardiology consulted Patient full code Subjective Date patient seen: January 13, 2018 Time patient seen: 08:55 ROS Limited/Unobtainable: Yes Allergies: Coded Allergies: No Known Allergies (Verified , 03/10/07) Subjective Patient converted to AFib. on BiPAP Objective Last 24 Hour Vital Signs Date Time Temp Pulse Resp B/P (MAP) Pulse Ox O2 Delivery O2 Flow Rate FiO2 01/13/18 07:10 68 30 100 Facial 40 01/13/18 07:07 93 27 100 Bi-pap 40 01/13/18 05:43 153 01/13/18 05:28 84 29 96 Facial 40 01/13/18 04:00 5.0 01/13/18 04:00 87 01/13/18 03:32 97.8 90 34 132/78 99 Bi-pap 40 97.8 01/13/18 02:35 79 28 98 Facial 40 01/13/18 00:56 85 27 100 Bi-pap 40 01/13/18 00:50 82 30 100 Bi-pap 40 01/13/18 00:30 84 26 93 Facial 40 01/13/18 00:00 96 01/13/18 00:00 98.1 99 26 111/60 93 Nasal Cannula 5.0 98.1 01/13/18 00:00 5.0 01/12/18 22:50 72 20 97 01/12/18 21:09 81 20 94 01/12/18 20:00 89 01/12/18 20:00 98.1 104 24 106/65 93 Nasal Cannula 5.0 98.1 01/12/18 20:00 5.0 01/12/18 19:05 Nasal Cannula 2.0 28 01/12/18 19:05 Room Air 21 01/12/18 18:46 75 22 96 01/12/18 16:30 80 20 95 01/12/18 16:00 97.9 94 22 111/77 92 Nasal Cannula 5.0 97.9 01/12/18 16:00 89 01/12/18 15:46 5.0 01/12/18 15:40 75 24 95 Facial 40 01/12/18 13:38 80 29 97 Bi-pap 40 01/12/18 13:31 81 28 97 Bi-pap 40 01/12/18 13:31 75 28 9 Facial 40 01/12/18 12:00 97.3 72 20 130/77 99 50 97.3 01/12/18 12:00 83 01/12/18 12:00 50 01/12/18 10:31 75 29 100 Facial 50 Intake and Output 01/12/18 01/13/18 19:00 07:00 Intake Total 942.500 ml 480.0 ml Output Total 850 ml 800 ml Balance 92.500 ml -320.0 ml Free Water 50 ml IV Total 432.500 ml 110.0 ml Tube Feeding 480 ml 320 ml Other 30 ml Output Urine Total 850 ml 800 ml Laboratory Tests 01/12/18 11:50: Arterial Blood pH 7.446, Arterial Blood Partial Pressure CO2 43.3, Arterial Blood Partial Pressure O2 109.0H, Arterial Blood HCO3 29.1H, Arterial Blood Oxygen Saturation 98.1H, Arterial Blood Base Excess 4.6, Kang Test Positive 01/13/18 04:00: White Blood Count 9.9, Red Blood Count 4.33, Hemoglobin 12.4, Hematocrit 38.0, Mean Corpuscular Volume 88, Mean Corpuscular Hemoglobin 28.5, Mean Corpuscular Hemoglobin Concent 32.5, Red Cell Distribution Width 15.5H, Platelet Count 246, Mean Platelet Volume 7.9, Neutrophils (%) (Auto) 77.0H, Lymphocytes (%) (Auto) 16.0L, Monocytes (%) (Auto) 5.2, Eosinophils (%) (Auto) 1.2, Basophils (%) (Auto ) 0.7, Sodium Level 139, Potassium Level 4.0, Chloride Level 102, Carbon Dioxide Level 32, Anion Gap 5, Blood Urea Nitrogen 12, Creatinine 0.5L, Estimat Glomerular Filtration Rate , Glucose Level 93, Calcium Level 8.9 Height (Feet): 5 Height (Inches): 2.00 Weight (Pounds): 96 General Appearance: WD/WN, no apparent distress EENT: TMs normal Neck: supple Cardiovascular: irregularly irregular Respiratory/Chest: rhonchi - bilaterally Abdomen: non tender, soft Edema: no edema noted Arm (L), no edema noted Arm (R), no edema noted Leg (L), no edema noted Leg (R), no edema noted Pedal (L), no edema noted Pedal (R), no edema noted Generalized Jorge Graf M.D. January 13, 2018 08:58
--- NOTE | 2018-01-13 09:20 | Pulmonology Progress Note ---
Assessment/Plan Assessment/Plan IMPRESSION: Profound hypoxemia, underlying pneumonia, possible mucous plugging. Concern for risk of DVT. advanced age, dementia. acute on chronic encephalopathy PLAN care as is oxygenation better BIPAP as needed respiratory care venous US ordered CXR and ABG repeat for change antibiotics check cultures and adjust monitor as is in [facility] patient full code impression, plan, and exam edited and reviewed in detail care discussed with RN Subjective Allergies: Coded Allergies: No Known Allergies (Verified , 03/10/07) Subjective on/off BIPAP noted still with some congestion and distress Objective Last 24 Hour Vital Signs Date Time Temp Pulse Resp B/P (MAP) Pulse Ox O2 Delivery O2 Flow Rate FiO2 01/13/18 09:11 99 27 99 Facial 40 01/13/18 08:00 98.4 94 34 106/56 98 Bi-pap 40 98.4 01/13/18 07:10 68 30 100 Facial 40 01/13/18 07:07 93 27 100 Bi-pap 40 01/13/18 05:43 153 01/13/18 05:28 84 29 96 Facial 40 01/13/18 04:00 5.0 01/13/18 04:00 87 01/13/18 03:32 97.8 90 34 132/78 99 Bi-pap 40 97.8 01/13/18 02:35 79 28 98 Facial 40 01/13/18 00:56 85 27 100 Bi-pap 40 01/13/18 00:50 82 30 100 Bi-pap 40 01/13/18 00:30 84 26 93 Facial 40 01/13/18 00:00 96 01/13/18 00:00 98.1 99 26 111/60 93 Nasal Cannula 5.0 98.1 01/13/18 00:00 5.0 01/12/18 22:50 72 20 97 01/12/18 21:09 81 20 94 01/12/18 20:00 89 01/12/18 20:00 98.1 104 24 106/65 93 Nasal Cannula 5.0 98.1 01/12/18 20:00 5.0 01/12/18 19:05 Nasal Cannula 2.0 28 01/12/18 19:05 Room Air 21 01/12/18 18:46 75 22 96 01/12/18 16:30 80 20 95 01/12/18 16:00 97.9 94 22 111/77 92 Nasal Cannula 5.0 97.9 01/12/18 16:00 89 01/12/18 15:46 5.0 01/12/18 15:40 75 24 95 Facial 40 01/12/18 13:38 80 29 97 Bi-pap 40 01/12/18 13:31 81 28 97 Bi-pap 40 01/12/18 13:31 75 28 9 Facial 40 01/12/18 12:00 97.3 72 20 130/77 99 50 97.3 01/12/18 12:00 83 01/12/18 12:00 50 01/12/18 10:31 75 29 100 Facial 50 Intake and Output 01/12/18 01/13/18 19:00 07:00 Intake Total 942.500 ml 480.0 ml Output Total 850 ml 800 ml Balance 92.500 ml -320.0 ml Free Water 50 ml IV Total 432.500 ml 110.0 ml Tube Feeding 480 ml 320 ml Other 30 ml Output Urine Total 850 ml 800 ml Objective GENERAL: The patient is an ill-appearing female. reduced LOC. HEENT: Negative. NECK: Supple. LUNGS: + rhonchi moderate. Air entry reduced. no significant change CARDIAC: Normal S1, S2. Regular rate and rhythm. Soft systolic murmur at left parasternal border. ABDOMEN: Soft, nontender. GT and no distention EXTREMITIES: No cyanosis or clubbing. SKIN: Noted and reviewed. reviewed Microbiology Date/Time Source Procedure Growth Status 01/11/18 02:30 Blood Blood Culture - Preliminary Staphylococcus Species Resulted 01/11/18 02:15 Blood Blood Culture - Preliminary Staphylococcus Species Resulted 01/12/18 17:00 Sputum Expectorated Gram Stain Pending Resulted 01/12/18 17:00 Sputum Expectorated Sputum Culture - Preliminary Resulted 01/11/18 02:30 Nasal Nares MRSA Culture - Final Staphylococcus Aureus - Mrsa Complete 01/11/18 02:30 Urine,Clean Catch Urine Culture - Preliminary NO GROWTH AFTER 24 HOURS Resulted 01/11/18 22:20 Sacral Wound Gram Stain - Final Resulted 01/11/18 22:20 Wound Culture - Preliminary Staphylococcus Aureus Resulted 01/11/18 02:30 Rectum VRE Culture - Final Enterococcus Faecium - Vre Complete Laboratory Tests 01/12/18 11:50: Arterial Blood pH 7.446, Arterial Blood Partial Pressure CO2 43.3, Arterial Blood Partial Pressure O2 109.0H, Arterial Blood HCO3 29.1H, Arterial Blood Oxygen Saturation 98.1H, Arterial Blood Base Excess 4.6, Kang Test Positive 01/13/18 04:00: White Blood Count 9.9, Red Blood Count 4.33, Hemoglobin 12.4, Hematocrit 38.0, Mean Corpuscular Volume 88, Mean Corpuscular Hemoglobin 28.5, Mean Corpuscular Hemoglobin Concent 32.5, Red Cell Distribution Width 15.5H, Platelet Count 246, Mean Platelet Volume 7.9, Neutrophils (%) (Auto) 77.0H, Lymphocytes (%) (Auto) 16.0L, Monocytes (%) (Auto) 5.2, Eosinophils (%) (Auto) 1.2, Basophils (%) (Auto ) 0.7, Sodium Level 139, Potassium Level 4.0, Chloride Level 102, Carbon Dioxide Level 32, Anion Gap 5, Blood Urea Nitrogen 12, Creatinine 0.5L, Estimat Glomerular Filtration Rate , Glucose Level 93, Calcium Level 8.9 Current Medications Medications (Trade) Dose Ordered Sig/Rosetta Route PRN Reason Start Time Stop Time Status Last Admin Dose Admin Acetaminophen (Tylenol) 650 mg Q4H PRN ORAL Mild Pain (Pain Scale 1-3) 01/11/18 04:45 02/10/18 04:44 Albuterol Sulfate (Proventil) 2.5 mg Q6H PRN HHN Shortness of Breath 01/11/18 04:45 01/16/18 04:44 Albuterol/ Ipratropium (Albuterol/ Ipratropium) 3 ml EVERY 6 HOURS HHN 01/11/18 06:00 01/16/18 05:59 01/13/18 07:05 Aspirin (ASA) 81 mg DAILY ORAL 01/11/18 09:00 02/10/18 08:59 01/12/18 08:02 Dextrose (Dextrose 50%) 25 ml STAT PRN IV Hypoglycemia 01/11/18 04:45 02/10/18 04:44 Dextrose (Dextrose 50%) 50 ml STAT PRN IV Hypoglycemia 01/11/18 04:45 02/10/18 04:44 Docusate Sodium (Colace) 100 mg EVERY 12 HOURS GT 01/11/18 11:00 02/10/18 10:59 01/12/18 20:36 Heparin Sodium (Porcine) (Heparin 5000 units/ml) 5,000 units EVERY 8 HOURS SUBQ 01/11/18 06:00 02/10/18 05:59 01/13/18 05:57 Insulin Aspart (NovoLOG) EVERY 6 HOURS SUBQ 01/11/18 18:00 02/10/18 11:29 01/13/18 00:01 Ondansetron HCl (Zofran) 4 mg Q6H PRN IVP Nausea & Vomiting 01/11/18 04:45 02/10/18 04:44 Piperacillin Sod/ Tazobactam Sod 3.375 gm/Sodium Chloride 110 ml @ 27.5 mls/hr EVERY 8 HOURS IVPB 01/12/18 15:00 01/17/18 14:59 01/13/18 05:54 Vancomycin HCl (Vanco rx to dose) 1 ea DAILY PRN MISC Per rx protocol 01/12/18 12:45 02/11/18 12:44 Vancomycin HCl 500 mg/Dextrose 110 ml @ 110 mls/hr Q24H IVPB 01/13/18 12:00 01/18/18 11:59 Chase Coronado MD January 13, 2018 09:20
[2018-01-13] MEDS: Docusate 100mg/10ml Liq GT SCH ×2 (09:30→21:07)
[2018-01-13] MEDS: Aspirin Baby 81mg ORAL SCH (09:30)
[2018-01-13 12:00] VITALS: BP 98/69
[2018-01-13] MEDS: Vancomycin 500mg/D5W 110ml IVPB SCH ×2 (13:56)
--- NOTE | 2018-01-13 14:07 | Infectious Diseases Prog Note ---
Assessment/Plan Problems: (1) Aspiration pneumonia Assessment & Plan: Await sputum culture , continue vancomycin with zosyn empiric coverage , monitor CXR, with aspiration precaution and keep HOB > 30 degree all the time (2) Sacral wound Assessment & Plan: with culture grew staph aureus , keep off loading, recommend local wound care and dressing change . already on wide spectrum antibiotics (3) UTI (urinary tract infection) Assessment & Plan: continue zosyn pending culture result (4) Sepsis Assessment & Plan: with staphylococcus spp , suorce most likely her sacral wound , continue vancomycin and zosyn empirically pending final blood culture result . await 2D echo to rule out any valve vegetations . will repeat blood culture to confirm clearance (5) Respiratory failure with hypoxia Assessment & Plan: due to the above, continue high flow oxygen, monitor CXR and ABG, pulmonary is following Subjective ROS Limited/Unobtainable: Yes Allergies: Coded Allergies: No Known Allergies (Verified , 03/10/07) Subjective she was still on BIPAP machine unresponsive to verbal commands . resting in bed , comfortable, afebrile Objective Vital Signs Last 24 Hour Vital Signs Date Time Temp Pulse Resp B/P (MAP) Pulse Ox O2 Delivery O2 Flow Rate FiO2 01/13/18 13:41 78 26 99 Bi-pap 40 01/13/18 13:34 80 26 99 Bi-pap 40 01/13/18 13:34 72 26 99 Facial 40 01/13/18 12:00 98.9 78 32 98/69 96 Bi-pap 40 98.9 01/13/18 12:00 40 01/13/18 11:37 81 20 100 Facial 40 01/13/18 09:27 99 28 99 Bi-pap 40 01/13/18 09:11 99 27 99 Facial 40 01/13/18 08:36 90 01/13/18 08:01 146 01/13/18 08:00 98.4 94 34 106/56 98 Bi-pap 40 98.4 01/13/18 08:00 40 01/13/18 07:10 68 30 100 Facial 40 01/13/18 07:07 93 27 100 Bi-pap 40 01/13/18 05:43 153 01/13/18 05:28 84 29 96 Facial 40 01/13/18 04:00 5.0 01/13/18 04:00 87 01/13/18 03:32 97.8 90 34 132/78 99 Bi-pap 40 97.8 01/13/18 02:35 79 28 98 Facial 40 01/13/18 00:56 85 27 100 Bi-pap 40 01/13/18 00:50 82 30 100 Bi-pap 40 01/13/18 00:30 84 26 93 Facial 40 01/13/18 00:00 96 01/13/18 00:00 98.1 99 26 111/60 93 Nasal Cannula 5.0 98.1 01/13/18 00:00 5.0 01/12/18 22:50 72 20 97 01/12/18 21:09 81 20 94 01/12/18 20:00 89 01/12/18 20:00 98.1 104 24 106/65 93 Nasal Cannula 5.0 98.1 01/12/18 20:00 5.0 01/12/18 19:05 Nasal Cannula 2.0 28 01/12/18 19:05 Room Air 21 01/12/18 18:46 75 22 96 01/12/18 16:30 80 20 95 01/12/18 16:00 97.9 94 22 111/77 92 Nasal Cannula 5.0 97.9 01/12/18 16:00 89 01/12/18 15:46 5.0 01/12/18 15:40 75 24 95 Facial 40 Height (Feet): 5 Height (Inches): 2.00 Weight (Pounds): 96 General Appearance: WD/WN, no acute distress, cachetic HEENT: normocephalic, atraumatic, no JVD, other - O Respiratory/Chest: chest wall non-tender, no respiratory distress, no accessory muscle use, decreased breath sounds Cardiovascular: normal peripheral pulses, normal rate, regular rhythm, no gallop/murmur, no JVD Abdomen: normal bowel sounds, soft, non tender, no organomegaly, non distended , no mass, no scars Extremities: no cyanosis, no clubbing Skin: no rash, no lesions, ulcers - S Neurologic/Psychiatric: unresponsiveness Lymphatic: no neck adenopathy, no groin adenopathy Microbiology Date/Time Source Procedure Growth Status 01/11/18 02:30 Blood Blood Culture - Preliminary Staphylococcus Species Resulted 01/11/18 02:15 Blood Blood Culture - Preliminary Staphylococcus Species Resulted 01/12/18 17:00 Sputum Expectorated Gram Stain - Final Resulted 01/12/18 17:00 Sputum Expectorated Sputum Culture - Preliminary Resulted 01/11/18 02:30 Nasal Nares MRSA Culture - Final Staphylococcus Aureus - Mrsa Complete 01/11/18 02:30 Urine,Clean Catch Urine Culture - Preliminary NO GROWTH AFTER 24 HOURS Resulted 01/11/18 22:20 Sacral Wound Gram Stain - Final Resulted 01/11/18 22:20 Wound Culture - Preliminary Staphylococcus Aureus Resulted 01/11/18 02:30 Rectum VRE Culture - Final Enterococcus Faecium - Vre Complete Laboratory Tests Test 01/13/18 04:00 White Blood Count 9.9 K/UL (4.8-10.8) Red Blood Count 4.33 M/UL (4.20-5.40) Hemoglobin 12.4 G/DL (12.0-16.0) Hematocrit 38.0 % (37.0-47.0) Mean Corpuscular Volume 88 FL (80-99) Mean Corpuscular Hemoglobin 28.5 PG (27.0-31.0) Mean Corpuscular Hemoglobin Concent 32.5 G/DL (32.0-36.0) Red Cell Distribution Width 15.5 % (11.6-14.8) H Platelet Count 246 K/UL (150-450) Mean Platelet Volume 7.9 FL (6.5-10.1) Neutrophils (%) (Auto) 77.0 % (45.0-75.0) H Lymphocytes (%) (Auto) 16.0 % (20.0-45.0) L Monocytes (%) (Auto) 5.2 % (1.0-10.0) Eosinophils (%) (Auto) 1.2 % (0.0-3.0) Basophils (%) (Auto) 0.7 % (0.0-2.0) Sodium Level 139 MMOL/L (136-145) Potassium Level 4.0 MMOL/L (3.5-5.1) Chloride Level 102 MMOL/L (98-107) Carbon Dioxide Level 32 MMOL/L (21-32) Anion Gap 5 mmol/L (5-15) Blood Urea Nitrogen 12 mg/dL (7-18) Creatinine 0.5 MG/DL (0.55-1.30) L Estimat Glomerular Filtration Rate mL/min (>60) Glucose Level 93 MG/DL (74-106) Calcium Level 8.9 MG/DL (8.5-10.1) Current Medications Medications (Trade) Dose Ordered Sig/Rosetta Route PRN Reason Start Time Stop Time Status Last Admin Dose Admin Acetaminophen (Tylenol) 650 mg Q4H PRN ORAL Mild Pain (Pain Scale 1-3) 01/11/18 04:45 02/10/18 04:44 Albuterol Sulfate (Proventil) 2.5 mg Q6H PRN HHN Shortness of Breath 01/11/18 04:45 01/16/18 04:44 Albuterol/ Ipratropium (Albuterol/ Ipratropium) 3 ml EVERY 6 HOURS HHN 01/11/18 06:00 01/16/18 05:59 01/13/18 13:34 Aspirin (ASA) 81 mg DAILY ORAL 01/11/18 09:00 02/10/18 08:59 01/13/18 09:30 Dextrose (Dextrose 50%) 25 ml STAT PRN IV Hypoglycemia 01/11/18 04:45 02/10/18 04:44 Dextrose (Dextrose 50%) 50 ml STAT PRN IV Hypoglycemia 01/11/18 04:45 02/10/18 04:44 Docusate Sodium (Colace) 100 mg EVERY 12 HOURS GT 01/11/18 11:00 02/10/18 10:59 01/13/18 09:30 Heparin Sodium (Porcine) (Heparin 5000 units/ml) 5,000 units EVERY 8 HOURS SUBQ 01/11/18 06:00 02/10/18 05:59 01/13/18 13:58 Insulin Aspart (NovoLOG) EVERY 6 HOURS SUBQ 01/11/18 18:00 02/10/18 11:29 01/13/18 12:22 Ondansetron HCl (Zofran) 4 mg Q6H PRN IVP Nausea & Vomiting 01/11/18 04:45 02/10/18 04:44 Piperacillin Sod/ Tazobactam Sod 3.375 gm/Sodium Chloride 110 ml @ 27.5 mls/hr EVERY 8 HOURS IVPB 01/12/18 15:00 01/17/18 14:59 01/13/18 05:54 Vancomycin HCl (Vanco rx to dose) 1 ea DAILY PRN MISC Per rx protocol 5/29/18 12:45 02/11/18 12:44 Vancomycin HCl 500 mg/Dextrose 110 ml @ 110 mls/hr Q24H IVPB 01/13/18 12:00 01/18/18 11:59 01/13/18 13:56 Dom Hoffman M.D. January 13, 2018 14:07
--- NOTE | 2018-01-13 16:08 | Cardiac Electrophysiology PN ---
Subjective Subjective [id number] Objective Last 24 Hour Vital Signs Date Time Temp Pulse Resp B/P (MAP) Pulse Ox O2 Delivery O2 Flow Rate FiO2 01/13/18 15:43 91 22 99 Facial 40 01/13/18 13:41 78 26 99 Bi-pap 40 01/13/18 13:34 80 26 99 Bi-pap 40 01/13/18 13:34 72 26 99 Facial 40 01/13/18 12:00 98.9 78 32 98/69 96 Bi-pap 40 98.9 01/13/18 12:00 40 01/13/18 11:42 79 01/13/18 11:37 81 20 100 Facial 40 01/13/18 09:27 99 28 99 Bi-pap 40 01/13/18 09:11 99 27 99 Facial 40 01/13/18 08:36 90 01/13/18 08:01 146 01/13/18 08:00 98.4 94 34 106/56 98 Bi-pap 40 98.4 01/13/18 08:00 40 01/13/18 07:10 68 30 100 Facial 40 01/13/18 07:07 93 27 100 Bi-pap 40 01/13/18 05:43 153 01/13/18 05:28 84 29 96 Facial 40 01/13/18 04:00 5.0 01/13/18 04:00 87 01/13/18 03:32 97.8 90 34 132/78 99 Bi-pap 40 97.8 01/13/18 02:35 79 28 98 Facial 40 01/13/18 00:56 85 27 100 Bi-pap 40 01/13/18 00:50 82 30 100 Bi-pap 40 01/13/18 00:30 84 26 93 Facial 40 01/13/18 00:00 96 01/13/18 00:00 98.1 99 26 111/60 93 Nasal Cannula 5.0 98.1 01/13/18 00:00 5.0 01/12/18 22:50 72 20 97 01/12/18 21:09 81 20 94 01/12/18 20:00 89 01/12/18 20:00 98.1 104 24 106/65 93 Nasal Cannula 5.0 98.1 01/12/18 20:00 5.0 01/12/18 19:05 Nasal Cannula 2.0 28 01/12/18 19:05 Room Air 21 01/12/18 18:46 75 22 96 01/12/18 16:30 80 20 95 Intake and Output 01/12/18 01/13/18 19:00 07:00 Intake Total 942.500 ml 480.0 ml Output Total 850 ml 800 ml Balance 92.500 ml -320.0 ml Free Water 50 ml IV Total 432.500 ml 110.0 ml Tube Feeding 480 ml 320 ml Other 30 ml Output Urine Total 850 ml 800 ml Laboratory Tests Test 01/13/18 04:00 White Blood Count 9.9 K/UL (4.8-10.8) Red Blood Count 4.33 M/UL (4.20-5.40) Hemoglobin 12.4 G/DL (12.0-16.0) Hematocrit 38.0 % (37.0-47.0) Mean Corpuscular Volume 88 FL (80-99) Mean Corpuscular Hemoglobin 28.5 PG (27.0-31.0) Mean Corpuscular Hemoglobin Concent 32.5 G/DL (32.0-36.0) Red Cell Distribution Width 15.5 % (11.6-14.8) H Platelet Count 246 K/UL (150-450) Mean Platelet Volume 7.9 FL (6.5-10.1) Neutrophils (%) (Auto) 77.0 % (45.0-75.0) H Lymphocytes (%) (Auto) 16.0 % (20.0-45.0) L Monocytes (%) (Auto) 5.2 % (1.0-10.0) Eosinophils (%) (Auto) 1.2 % (0.0-3.0) Basophils (%) (Auto) 0.7 % (0.0-2.0) Sodium Level 139 MMOL/L (136-145) Potassium Level 4.0 MMOL/L (3.5-5.1) Chloride Level 102 MMOL/L (98-107) Carbon Dioxide Level 32 MMOL/L (21-32) Anion Gap 5 mmol/L (5-15) Blood Urea Nitrogen 12 mg/dL (7-18) Creatinine 0.5 MG/DL (0.55-1.30) L Estimat Glomerular Filtration Rate mL/min (>60) Glucose Level 93 MG/DL (74-106) Calcium Level 8.9 MG/DL (8.5-10.1) Microbiology Date/Time Source Procedure Growth Status 01/11/18 02:30 Blood Blood Culture - Preliminary Staphylococcus Species Resulted 01/11/18 02:15 Blood Blood Culture - Preliminary Staphylococcus Species Resulted 01/12/18 17:00 Sputum Expectorated Gram Stain - Final Resulted 01/12/18 17:00 Sputum Expectorated Sputum Culture - Preliminary Resulted 01/11/18 02:30 Nasal Nares MRSA Culture - Final Staphylococcus Aureus - Mrsa Complete 01/11/18 02:30 Urine,Clean Catch Urine Culture - Preliminary NO GROWTH AFTER 24 HOURS Resulted 01/11/18 22:20 Sacral Wound Gram Stain - Final Resulted 01/11/18 22:20 Wound Culture - Preliminary Staphylococcus Aureus Resulted 01/11/18 02:30 Rectum VRE Culture - Final Enterococcus Faecium - Vre Complete Emmanuel Edgar MD January 13, 2018 16:08
[2018-01-13 16:15] VITALS: BP 107/66
[2018-01-13] MEDS ORDERED: 1/2 NS 1000ml IV ONE (19:51)
[2018-01-13 20:00] VITALS: BP 137/60
[2018-01-13] MEDS ORDERED: Tubing IV Secondary IV ONE (20:00)
--- NOTE | 2018-01-13 23:15 | Consultation ---
DATE OF CONSULTATION: 01/13/2018 CARDIOLOGY CONSULTATION CONSULTING PHYSICIAN: Emmanuel Edgar M.D. REFERRING PHYSICIAN: Rodrgio Lara M.D. REASON FOR CONSULTATION: Atrial fibrillation with rapid ventricular response. HISTORY OF PRESENT ILLNESS: The patient is an 82-year-old lady with history of hypertension, COPD, history of CVA with contractures, status post G-tube, who was recently discharged from [facility] for sepsis and aspiration pneumonia. The patient was brought to the emergency room for respiratory distress and shortness of breath with saturation in the 60% range. The primary started the patient on oxygen supplementation. The patient was then admitted. The patient also has had atrial fibrillation with rapid ventricular response with heart rate of up to 170 beats per minute. The patient was in and out of atrial fibrillation. REVIEW OF SYSTEMS: Cannot be obtained due to the patient's mental status. PAST MEDICAL HISTORY: 1. Hypertension. 2. COPD. 3. Contractures. 4. History of CVA and TIA. 5. Dysphagia, status post G-tube placement. FAMILY HISTORY: Unavailable. SOCIAL HISTORY: She lives in a halfway. Does not smoke or drink alcohol. PHYSICAL EXAMINATION: VITAL SIGNS: Blood pressure 98/69, pulse is 91, respirations 26, temperature 98.9. HEAD AND NECK: Shows positive for JVD. LUNGS: Coarse rhonchi. CARDIOVASCULAR: Shows irregular, tachycardic. S1, S2 with no gallop or murmur. ABDOMEN: Status post G-tube. EXTREMITIES: No pitting edema. Her upper extremities are contracted. LABORATORY AND DIAGNOSTIC DATA: Labs show white count of 9.9, hemoglobin 12.4, hematocrit 38, and platelet count 246,000. Sodium , potassium 4.0, BUN of 12, creatinine 0.5, and glucose of 93. INR is 0.9. ASSESSMENT AND PLAN: 1. Paroxysmal atrial fibrillation with rapid ventricular response. We will add low-dose Cardizem to her medical regimen through G-tube. The patient is on subcutaneous heparin 5000 t.i.d. Her echocardiogram also showed normal left ventricular systolic function. 2. Hypertension. Blood pressure on the lower side. If she tolerates, start her on Cardizem. 3. Hypertension. Systolic blood pressure is borderline in the 90s. We may need to give only digoxin for better rate control. 4. Aspiration pneumonia and sepsis, on broad-spectrum antibiotic with vancomycin and Zosyn. 5. Dysphagia, status post PEG placement. 6. Hypernatremia. Sodium 151. IV fluids per Dr. Lara. Thank you very much, Dr. Lara, for allowing me to participate in the care of this patient. Please do not hesitate to contact me for any questions regarding my evaluation. Emmanuel Edgar M.D. DR: Nichole JOB#: [id number] CC:
[2018-01-14] VITALS: BP 116/73
[2018-01-14] MEDS: Albuterol/Ipratropium 3ml neb HHN SCH ×4 (01:17→19:46)
[2018-01-14 04:00] VITALS: BP 131/82
[2018-01-14 05:00] LABS: BASOPHILS % (AUTO) 0.9 % (0.0-2.0); EOSINOPHILS % (AUTO) 1.7 % (0.0-3.0); HEMATOCRIT 34.1 % (37.0-47.0); HEMOGLOBIN 11.4 G/DL (12.0-16.0); LYMPHOCYTES % (AUTO) 18.8 % (20.0-45.0); MEAN CORPUSCULAR VOLUME 87 FL (80-99); MONOCYTES % (AUTO) 5.8 % (1.0-10.0); NEUTROPHILS % (AUTO) 72.8 % (45.0-75.0); PLATELET COUNT 277 K/UL (150-450); RED BLOOD COUNT 3.92 M/UL (4.20-5.40); RED CELL DISTRIBUTION WIDTH 15.5 % (11.6-14.8); WHITE BLOOD COUNT 8.4 K/UL (4.8-10.8)
[2018-01-14 05:27] LABS: ANION GAP 5 mmol/L (5-15); BLOOD UREA NITROGEN 15 mg/dL (7-18); CALCIUM 8.5 MG/DL (8.5-10.1); CARBON DIOXIDE 31 MMOL/L (21-32); CHLORIDE 106 MMOL/L (98-107); CREATININE 0.4 MG/DL (0.55-1.30); PHOSPHORUS 3.1 MG/DL (2.5-4.9); POTASSIUM 3.8 MMOL/L (3.5-5.1); SODIUM 142 MMOL/L (136-145)
[2018-01-14] MEDS: Zosyn 3.375gm q8h **Extended infusion IVPB SCH ×6 (05:49→22:17)
[2018-01-14] MEDS: Heparin 5000 units/ml inj SUBQ SCH ×3 (05:50→22:18)
[2018-01-14] MEDS: NovoLOG Insulin Flexpen SUBQ SCH ×5 (05:51→23:35)
[2018-01-14 08:00] VITALS: BP 121/82
--- NOTE | 2018-01-14 08:37 | Pulmonology Progress Note ---
Assessment/Plan Assessment/Plan IMPRESSION: Profound hypoxemia, underlying pneumonia, possible mucous plugging. at risk for DVT. advanced age, dementia. acute on chronic encephalopathy PLAN care as is oxygenation better BIPAP as needed; try off respiratory care venous US ordered ABG on NC oxygen antibiotics check cultures and adjust monitor as is in REBEL with labile respiratory status patient full code impression, plan, and exam edited and reviewed in detail care discussed with RN Subjective ROS Limited/Unobtainable: Yes Allergies: Coded Allergies: No Known Allergies (Verified , 03/10/07) Subjective on BIPAP overnight now on NC and comfortable d/w RN Objective Last 24 Hour Vital Signs Date Time Temp Pulse Resp B/P (MAP) Pulse Ox O2 Delivery O2 Flow Rate FiO2 01/14/18 08:00 5.0 01/14/18 07:23 84 24 99 Nasal Cannula 3.0 01/14/18 07:13 71 28 100 Nasal Cannula 3.0 01/14/18 05:20 94 36 98 Full Face 40 01/14/18 04:00 98.9 91 20 131/82 100 Bi-pap 40 98.9 01/14/18 04:00 40 01/14/18 03:53 77 01/14/18 03:09 89 30 99 Full Face 40 01/14/18 01:25 80 20 99 Bi-pap 40 01/14/18 01:17 76 21 97 Bi-pap 40 01/14/18 01:15 76 21 98 Full Face 40 01/14/18 00:00 98.9 87 20 116/73 100 Bi-pap 40 98.9 01/13/18 22:57 76 21 100 Facial 40 01/13/18 21:06 84 25 98 Facial 40 01/13/18 20:00 75 01/13/18 20:00 98.8 81 23 137/60 100 Bi-pap 40 98.8 01/13/18 20:00 40 01/13/18 19:06 69 21 100 Bi-pap 40 01/13/18 18:57 72 21 100 Facial 40 01/13/18 18:57 72 21 100 Bi-pap 40 01/13/18 17:45 79 24 99 Facial 40 01/13/18 16:22 74 01/13/18 16:15 97.8 79 23 107/66 100 Bi-pap 40 97.8 01/13/18 16:00 40 01/13/18 15:43 91 22 99 Facial 40 01/13/18 13:41 78 26 99 Bi-pap 40 01/13/18 13:34 80 26 99 Bi-pap 40 01/13/18 13:34 72 26 99 Facial 40 01/13/18 12:00 98.9 78 32 98/69 96 Bi-pap 40 98.9 01/13/18 12:00 40 01/13/18 11:42 79 01/13/18 11:37 81 20 100 Facial 40 01/13/18 09:27 99 28 99 Bi-pap 40 01/13/18 09:11 99 27 99 Facial 40 Intake and Output 01/13/18 01/14/18 19:00 07:00 Intake Total 772.5 ml 540 ml Output Total 350 ml 450 ml Balance 422.5 ml 90 ml Free Water 100 ml IV Total 192.5 ml Tube Feeding 480 ml 440 ml Other 100 ml Output Urine Total 350 ml 450 ml # Bowel Movements 3 Objective GENERAL: The patient is an ill-appearing female. reduced LOC. HEENT: Negative. NECK: Supple. LUNGS: some rhonchi moderate. Air entry reduced. no significant change CARDIAC: Normal S1, S2. Regular rate and rhythm. Soft systolic murmur at left parasternal border. ABDOMEN: Soft, nontender. GT and no distention EXTREMITIES: No cyanosis or clubbing. SKIN: Noted and reviewed. reviewed Microbiology Date/Time Source Procedure Growth Status 01/12/18 17:00 Sputum Expectorated Gram Stain - Final Complete 01/12/18 17:00 Sputum Expectorated Sputum Culture - Final NORMAL UPPER RESPIRATORY LAITH PRESENT Complete 01/11/18 22:20 Sacral Wound Gram Stain - Final Resulted 01/11/18 22:20 Wound Culture - Preliminary Staphylococcus Aureus Resulted Laboratory Tests 01/14/18 04:05: White Blood Count 8.4, Red Blood Count 3.92L, Hemoglobin 11.4L, Hematocrit 34.1L , Mean Corpuscular Volume 87, Mean Corpuscular Hemoglobin 29.0, Mean Corpuscular Hemoglobin Concent 33.3, Red Cell Distribution Width 15.5H, Platelet Count 277, Mean Platelet Volume 8.3, Neutrophils (%) (Auto) 72.8, Lymphocytes (%) (Auto) 18.8L, Monocytes (%) (Auto) 5.8, Eosinophils (%) (Auto) 1.7, Basophils (%) (Auto) 0.9, Sodium Level 142, Potassium Level 3.8, Chloride Level 106, Carbon Dioxide Level 31, Anion Gap 5, Blood Urea Nitrogen 15, Creatinine 0.4L, Estimat Glomerular Filtration Rate , Glucose Level 112H, Calcium Level 8.5, Phosphorus Level 3.1, Magnesium Level 2.1 Current Medications Medications (Trade) Dose Ordered Sig/Rosetta Route PRN Reason Start Time Stop Time Status Last Admin Dose Admin Acetaminophen (Tylenol) 650 mg Q4H PRN ORAL Mild Pain (Pain Scale 1-3) 01/11/18 04:45 02/10/18 04:44 Albuterol Sulfate (Proventil) 2.5 mg Q6H PRN HHN Shortness of Breath 01/11/18 04:45 01/16/18 04:44 Albuterol/ Ipratropium (Albuterol/ Ipratropium) 3 ml EVERY 6 HOURS HHN 01/11/18 06:00 01/16/18 05:59 01/14/18 07:13 Aspirin (ASA) 81 mg DAILY ORAL 01/11/18 09:00 02/10/18 08:59 01/13/18 09:30 Dextrose (Dextrose 50%) 25 ml STAT PRN IV Hypoglycemia 01/11/18 04:45 02/10/18 04:44 Dextrose (Dextrose 50%) 50 ml STAT PRN IV Hypoglycemia 01/11/18 04:45 02/10/18 04:44 Digoxin (Lanoxin) 0.125 mg DAILY GT 01/14/18 09:00 02/13/18 08:59 Docusate Sodium (Colace) 100 mg EVERY 12 HOURS GT 01/11/18 11:00 02/10/18 10:59 01/13/18 21:07 Heparin Sodium (Porcine) (Heparin 5000 units/ml) 5,000 units EVERY 8 HOURS SUBQ 01/11/18 06:00 02/10/18 05:59 01/14/18 05:50 Insulin Aspart (NovoLOG) EVERY 6 HOURS SUBQ 01/11/18 18:00 02/10/18 11:29 01/13/18 17:11 Ondansetron HCl (Zofran) 4 mg Q6H PRN IVP Nausea & Vomiting 01/11/18 04:45 02/10/18 04:44 Piperacillin Sod/ Tazobactam Sod 3.375 gm/Sodium Chloride 110 ml @ 27.5 mls/hr EVERY 8 HOURS IVPB 01/12/18 15:00 01/17/18 14:59 01/14/18 05:49 Vancomycin HCl (Vanco rx to dose) 1 ea DAILY PRN MISC Per rx protocol 01/12/18 12:45 02/11/18 12:44 Vancomycin HCl 500 mg/Dextrose 110 ml @ 110 mls/hr Q24H IVPB 01/13/18 12:00 01/18/18 11:59 01/13/18 13:56 Chase Coronado MD January 14, 2018 08:37
--- NOTE | 2018-01-14 08:40 | Nephrology Progress Note ---
Assessment/Plan Assessment/Plan 1. Resp FL- Nosocomial PNA - Abx, much improved, off BiPAP 2. PNA- Abx and improving 3. Nutrition- on TF's 4. DM- Glucerna and ISS 5. DVT Prophylaxis with heparin sub q 6. Afib- new onset, mgmt per cardiology Patient full code Plan to DC in 2-3 days if stable back to SNF Subjective Date patient seen: January 14, 2018 Time patient seen: 08:38 ROS Limited/Unobtainable: Yes Cardiovascular: Reports: irregular heart rate Allergies: Coded Allergies: No Known Allergies (Verified , 03/10/07) All Systems: reviewed and negative except above Subjective Patient off BiPAP Objective Last 24 Hour Vital Signs Date Time Temp Pulse Resp B/P (MAP) Pulse Ox O2 Delivery O2 Flow Rate FiO2 01/14/18 08:00 96.3 99 19 121/82 99 Nasal Cannula 5.0 96.3 01/14/18 08:00 5.0 01/14/18 07:23 84 24 99 Nasal Cannula 3.0 01/14/18 07:13 71 28 100 Nasal Cannula 3.0 01/14/18 05:20 94 36 98 Full Face 40 01/14/18 04:00 98.9 91 20 131/82 100 Bi-pap 40 98.9 01/14/18 04:00 40 01/14/18 03:53 77 01/14/18 03:09 89 30 99 Full Face 40 01/14/18 01:25 80 20 99 Bi-pap 40 01/14/18 01:17 76 21 97 Bi-pap 40 01/14/18 01:15 76 21 98 Full Face 40 01/14/18 00:00 98.9 87 20 116/73 100 Bi-pap 40 98.9 01/13/18 22:57 76 21 100 Facial 40 01/13/18 21:06 84 25 98 Facial 40 01/13/18 20:00 75 01/13/18 20:00 98.8 81 23 137/60 100 Bi-pap 40 98.8 01/13/18 20:00 40 01/13/18 19:06 69 21 100 Bi-pap 40 01/13/18 18:57 72 21 100 Facial 40 01/13/18 18:57 72 21 100 Bi-pap 40 01/13/18 17:45 79 24 99 Facial 40 01/13/18 16:22 74 01/13/18 16:15 97.8 79 23 107/66 100 Bi-pap 40 97.8 01/13/18 16:00 40 01/13/18 15:43 91 22 99 Facial 40 01/13/18 13:41 78 26 99 Bi-pap 40 01/13/18 13:34 80 26 99 Bi-pap 40 01/13/18 13:34 72 26 99 Facial 40 01/13/18 12:00 98.9 78 32 98/69 96 Bi-pap 40 98.9 01/13/18 12:00 40 01/13/18 11:42 79 01/13/18 11:37 81 20 100 Facial 40 01/13/18 09:27 99 28 99 Bi-pap 40 01/13/18 09:11 99 27 99 Facial 40 Intake and Output 01/13/18 01/14/18 19:00 07:00 Intake Total 772.5 ml 540 ml Output Total 350 ml 450 ml Balance 422.5 ml 90 ml Free Water 100 ml IV Total 192.5 ml Tube Feeding 480 ml 440 ml Other 100 ml Output Urine Total 350 ml 450 ml # Bowel Movements 3 Laboratory Tests 01/14/18 04:05: White Blood Count 8.4, Red Blood Count 3.92L, Hemoglobin 11.4L, Hematocrit 34.1L , Mean Corpuscular Volume 87, Mean Corpuscular Hemoglobin 29.0, Mean Corpuscular Hemoglobin Concent 33.3, Red Cell Distribution Width 15.5H, Platelet Count 277, Mean Platelet Volume 8.3, Neutrophils (%) (Auto) 72.8, Lymphocytes (%) (Auto) 18.8L, Monocytes (%) (Auto) 5.8, Eosinophils (%) (Auto) 1.7, Basophils (%) (Auto) 0.9, Sodium Level 142, Potassium Level 3.8, Chloride Level 106, Carbon Dioxide Level 31, Anion Gap 5, Blood Urea Nitrogen 15, Creatinine 0.4L, Estimat Glomerular Filtration Rate , Glucose Level 112H, Calcium Level 8.5, Phosphorus Level 3.1, Magnesium Level 2.1 Height (Feet): 5 Height (Inches): 2.00 Weight (Pounds): 96 General Appearance: no apparent distress EENT: normal ENT inspection Neck: normal alignment, supple Cardiovascular: irregularly irregular Respiratory/Chest: lungs clear, normal breath sounds Edema: no edema noted Arm (L), no edema noted Arm (R), no edema noted Leg (L), no edema noted Leg (R), no edema noted Pedal (L), no edema noted Pedal (R), no edema noted Generalized Jorge Graf M.D. January 14, 2018 08:40
[2018-01-14] MEDS ORDERED: Digoxin 0.125mg tab PEG SCH (09:00)
[2018-01-14] MEDS: Digoxin Elixir 0.125mg GT SCH (09:49)
[2018-01-14] MEDS: Docusate 100mg/10ml Liq GT SCH ×2 (09:49→20:17)
[2018-01-14] MEDS: Aspirin Baby 81mg ORAL SCH (09:49)
[2018-01-14 13:00] VITALS: BP 137/82
[2018-01-14] MEDS: Vancomycin 500mg/D5W 110ml IVPB SCH ×2 (13:04)
--- NOTE | 2018-01-14 14:29 | Infectious Diseases Prog Note ---
Assessment/Plan Problems: (1) Aspiration pneumonia Assessment & Plan: sputum culture grew normal upper respiratory anjel , will continue zosyn empiric coverage for 10 days total , monitor CXR, with aspiration precaution and keep HOB > 30 degree all the time (2) Sacral wound Assessment & Plan: with culture grew methicillin resistant staph aureus , keep off loading, recommend local wound care and dressing change . will treat with vancomycin for two weeks (3) UTI (urinary tract infection) Assessment & Plan: already on zosyn , culture showed no growth (4) Sepsis Assessment & Plan: with staphy epidermidis , source most likely her sacral wound , will treat with vancomycin for two weeks . 2D echo was not able to evaluate the valves well , will repeat blood culture to confirm clearance, will continue vancomycin for tow weeks starting from the clearance date. await repeated blood culture (5) Respiratory failure with hypoxia Assessment & Plan: improving, due to the above, continue high flow oxygen, monitor CXR and ABG, pulmonary is following Subjective ROS Limited/Unobtainable: Yes Allergies: Coded Allergies: No Known Allergies (Verified , 03/10/07) Subjective she was switched from BIPAP machine to ghigh flow oxygen mask , more awake and alert, unresponsive to verbal commands . resting in bed, comfortable, afebrile Objective Vital Signs Last 24 Hour Vital Signs Date Time Temp Pulse Resp B/P (MAP) Pulse Ox O2 Delivery O2 Flow Rate FiO2 01/14/18 14:10 98 Venturi Mask 45 01/14/18 14:08 95 26 98 Venturi Mask 14.0 55 01/14/18 13:00 97.9 99 19 137/82 99 Venturi Mask 55 97.9 01/14/18 11:57 98 01/14/18 09:49 99 01/14/18 09:20 26 96 Venturi Mask 55 01/14/18 08:00 96.3 99 19 121/82 99 Nasal Cannula 5.0 96.3 01/14/18 08:00 5.0 01/14/18 07:46 82 01/14/18 07:23 84 24 99 Nasal Cannula 3.0 01/14/18 07:13 71 28 100 Nasal Cannula 3.0 01/14/18 05:20 94 36 98 Full Face 40 01/14/18 04:00 98.9 91 20 131/82 100 Bi-pap 40 98.9 01/14/18 04:00 40 5/31/18 03:53 77 01/14/18 03:09 89 30 99 Full Face 40 01/14/18 01:25 80 20 99 Bi-pap 40 01/14/18 01:17 76 21 97 Bi-pap 40 01/14/18 01:15 76 21 98 Full Face 40 01/14/18 00:00 98.9 87 20 116/73 100 Bi-pap 40 98.9 01/13/18 22:57 76 21 100 Facial 40 01/13/18 21:06 84 25 98 Facial 40 01/13/18 20:00 75 01/13/18 20:00 98.8 81 23 137/60 100 Bi-pap 40 98.8 01/13/18 20:00 40 01/13/18 19:06 69 21 100 Bi-pap 40 01/13/18 18:57 72 21 100 Facial 40 01/13/18 18:57 72 21 100 Bi-pap 40 01/13/18 17:45 79 24 99 Facial 40 01/13/18 16:22 74 01/13/18 16:15 97.8 79 23 107/66 100 Bi-pap 40 97.8 01/13/18 16:00 40 01/13/18 15:43 91 22 99 Facial 40 Height (Feet): 5 Height (Inches): 2.00 Weight (Pounds): 96 General Appearance: WD/WN, no acute distress, cachetic HEENT: normocephalic, atraumatic, anicteric, mucous membranes moist Respiratory/Chest: chest wall non-tender, lungs clear, normal breath sounds, no respiratory distress, no accessory muscle use Cardiovascular: normal peripheral pulses, normal rate, regular rhythm, no gallop/murmur, no JVD Abdomen: normal bowel sounds, soft, non tender, no organomegaly, non distended , no mass Extremities: no cyanosis, no clubbing Skin: no rash, no lesions Neurologic/Psychiatric: alert, oriented x 3 Lymphatic: no neck adenopathy, no groin adenopathy Musculoskeletal: normal muscle bulk, no effusion Microbiology Date/Time Source Procedure Growth Status 01/12/18 17:00 Sputum Expectorated Gram Stain - Final Complete 01/12/18 17:00 Sputum Expectorated Sputum Culture - Final NORMAL UPPER RESPIRATORY ANJEL PRESENT Complete 01/11/18 22:20 Sacral Wound Gram Stain - Final Resulted 01/11/18 22:20 Wound Culture - Preliminary Staphylococcus Aureus - Mrsa Resulted Laboratory Tests Test 01/14/18 04:05 01/14/18 09:13 01/14/18 10:59 01/14/18 12:15 White Blood Count 8.4 K/UL (4.8-10.8) Red Blood Count 3.92 M/UL (4.20-5.40) L Hemoglobin 11.4 G/DL (12.0-16.0) L Hematocrit 34.1 % (37.0-47.0) L Mean Corpuscular Volume 87 FL (80-99) Mean Corpuscular Hemoglobin 29.0 PG (27.0-31.0) Mean Corpuscular Hemoglobin Concent 33.3 G/DL (32.0-36.0) Red Cell Distribution Width 15.5 % (11.6-14.8) H Platelet Count 277 K/UL (150-450) Mean Platelet Volume 8.3 FL (6.5-10.1) Neutrophils (%) (Auto) 72.8 % (45.0-75.0) Lymphocytes (%) (Auto) 18.8 % (20.0-45.0) L Monocytes (%) (Auto) 5.8 % (1.0-10.0) Eosinophils (%) (Auto) 1.7 % (0.0-3.0) Basophils (%) (Auto) 0.9 % (0.0-2.0) Sodium Level 142 MMOL/L (136-145) Potassium Level 3.8 MMOL/L (3.5-5.1) Chloride Level 106 MMOL/L (98-107) Carbon Dioxide Level 31 MMOL/L (21-32) Anion Gap 5 mmol/L (5-15) Blood Urea Nitrogen 15 mg/dL (7-18) Creatinine 0.4 MG/DL (0.55-1.30) L Estimat Glomerular Filtration Rate mL/min (>60) Glucose Level 112 MG/DL (74-106) H Calcium Level 8.5 MG/DL (8.5-10.1) Phosphorus Level 3.1 MG/DL (2.5-4.9) Magnesium Level 2.1 MG/DL (1.8-2.4) Arterial Blood pH 7.480 (7.350-7.450) 7.460 (7.350-7.450) Arterial Blood Partial Pressure CO2 37.4 mmHg (35.0-45.0) 47.7 mmHg (35.0-45.0) H Arterial Blood Partial Pressure O2 54.7 mmHg (75.0-100.0) L 101.0 mmHg (75.0-100.0) H Arterial Blood HCO3 27.7 mmol/L (22.0-26.0) H 32.9 mmol/L (22.0-26.0) H Arterial Blood Oxygen Saturation 88.6 % (92.0-98.0) L 97.5 % (92.0-98.0) Arterial Blood Base Excess 4.3 7.9 Kang Test Positive Positive Vancomycin Level Trough 6.4 ug/mL (5.0-12.0) Current Medications Medications (Trade) Dose Ordered Sig/Rosetta Route PRN Reason Start Time Stop Time Status Last Admin Dose Admin Acetaminophen (Tylenol) 650 mg Q4H PRN ORAL Mild Pain (Pain Scale 1-3) 01/11/18 04:45 02/10/18 04:44 Albuterol Sulfate (Proventil) 2.5 mg Q6H PRN HHN Shortness of Breath 01/11/18 04:45 01/16/18 04:44 Albuterol/ Ipratropium (Albuterol/ Ipratropium) 3 ml EVERY 6 HOURS HHN 01/11/18 06:00 01/16/18 05:59 01/14/18 14:07 Aspirin (ASA) 81 mg DAILY ORAL 01/11/18 09:00 02/10/18 08:59 01/14/18 09:49 Dextrose (Dextrose 50%) 25 ml STAT PRN IV Hypoglycemia 01/11/18 04:45 02/10/18 04:44 Dextrose (Dextrose 50%) 50 ml STAT PRN IV Hypoglycemia 01/11/18 04:45 02/10/18 04:44 Digoxin (Lanoxin) 0.125 mg DAILY GT 01/14/18 09:00 02/13/18 08:59 01/14/18 09:49 Docusate Sodium (Colace) 100 mg EVERY 12 HOURS GT 01/11/18 11:00 02/10/18 10:59 01/14/18 09:49 Heparin Sodium (Porcine) (Heparin 5000 units/ml) 5,000 units EVERY 8 HOURS SUBQ 01/11/18 06:00 02/10/18 05:59 01/14/18 05:50 Insulin Aspart (NovoLOG) EVERY 6 HOURS SUBQ 01/11/18 18:00 02/10/18 11:29 01/13/18 17:11 Ondansetron HCl (Zofran) 4 mg Q6H PRN IVP Nausea & Vomiting 01/11/18 04:45 02/10/18 04:44 Piperacillin Sod/ Tazobactam Sod 3.375 gm/Sodium Chloride 110 ml @ 27.5 mls/hr EVERY 8 HOURS IVPB 01/12/18 15:00 01/17/18 14:59 01/14/18 05:49 Vancomycin HCl (Vanco rx to dose) 1 ea DAILY PRN MISC Per rx protocol 01/12/18 12:45 02/11/18 12:44 Vancomycin HCl 500 mg/Dextrose 110 ml @ 110 mls/hr Q12HR@0100,1300 IVPB 01/15/18 01:00 01/20/18 00:59 Vancomycin HCl 500 mg/Dextrose 110 ml @ 110 mls/hr Q24H IVPB 01/13/18 12:00 01/14/18 16:00 01/14/18 13:04 Dom Hoffman M.D. January 14, 2018 14:29
[2018-01-14 16:00] VITALS: BP 144/87
--- NOTE | 2018-01-14 16:20 | Cardiac Electrophysiology PN ---
Assessment/Plan Assessment/Plan 1. Paroxysmal atrial fibrillation with rapid ventricular response. Controlled on Dig through G-tube. On Subcutaneous heparin 5000 t.i.d. Echocardiogram also showed normal left ventricular systolic function. 2. Hypertension. Systolic blood pressure is borderline in the 90s. 3. Aspiration pneumonia and sepsis, on broad-spectrum antibiotic with vancomycin and Zosyn. 4. Dysphagia, status post PEG placement. 5. Hypernatremia. Sodium 151. Resolved per Dr. Lara. Subjective Subjective No chest pain or SOB. Rate controlled. Objective Last 24 Hour Vital Signs Date Time Temp Pulse Resp B/P (MAP) Pulse Ox O2 Delivery O2 Flow Rate FiO2 01/14/18 14:18 96 24 97 Venturi Mask 10.0 45 01/14/18 14:10 98 Venturi Mask 45 01/14/18 14:08 95 26 98 Venturi Mask 14.0 55 01/14/18 13:00 97.9 99 19 137/82 99 Venturi Mask 55 97.9 01/14/18 11:57 98 01/14/18 09:49 99 01/14/18 09:20 26 96 Venturi Mask 55 01/14/18 08:00 96.3 99 19 121/82 99 Nasal Cannula 5.0 96.3 01/14/18 08:00 5.0 01/14/18 07:46 82 01/14/18 07:23 84 24 99 Nasal Cannula 3.0 01/14/18 07:13 71 28 100 Nasal Cannula 3.0 01/14/18 05:20 94 36 98 Full Face 40 01/14/18 04:00 98.9 91 20 131/82 100 Bi-pap 40 98.9 01/14/18 04:00 40 01/14/18 03:53 77 01/14/18 03:09 89 30 99 Full Face 40 01/14/18 01:25 80 20 99 Bi-pap 40 01/14/18 01:17 76 21 97 Bi-pap 40 01/14/18 01:15 76 21 98 Full Face 40 01/14/18 00:00 98.9 87 20 116/73 100 Bi-pap 40 98.9 01/13/18 22:57 76 21 100 Facial 40 01/13/18 21:06 84 25 98 Facial 40 01/13/18 20:00 75 5/30/18 20:00 98.8 81 23 137/60 100 Bi-pap 40 98.8 01/13/18 20:00 40 01/13/18 19:06 69 21 100 Bi-pap 40 01/13/18 18:57 72 21 100 Facial 40 01/13/18 18:57 72 21 100 Bi-pap 40 01/13/18 17:45 79 24 99 Facial 40 01/13/18 16:22 74 01/13/18 16:15 97.8 79 23 107/66 100 Bi-pap 40 97.8 01/13/18 16:00 40 Intake and Output 01/13/18 01/14/18 19:00 07:00 Intake Total 772.5 ml 540 ml Output Total 350 ml 450 ml Balance 422.5 ml 90 ml Free Water 100 ml IV Total 192.5 ml Tube Feeding 480 ml 440 ml Other 100 ml Output Urine Total 350 ml 450 ml # Bowel Movements 3 Laboratory Tests Test 01/14/18 04:05 01/14/18 09:13 01/14/18 10:59 01/14/18 12:15 White Blood Count 8.4 K/UL (4.8-10.8) Red Blood Count 3.92 M/UL (4.20-5.40) L Hemoglobin 11.4 G/DL (12.0-16.0) L Hematocrit 34.1 % (37.0-47.0) L Mean Corpuscular Volume 87 FL (80-99) Mean Corpuscular Hemoglobin 29.0 PG (27.0-31.0) Mean Corpuscular Hemoglobin Concent 33.3 G/DL (32.0-36.0) Red Cell Distribution Width 15.5 % (11.6-14.8) H Platelet Count 277 K/UL (150-450) Mean Platelet Volume 8.3 FL (6.5-10.1) Neutrophils (%) (Auto) 72.8 % (45.0-75.0) Lymphocytes (%) (Auto) 18.8 % (20.0-45.0) L Monocytes (%) (Auto) 5.8 % (1.0-10.0) Eosinophils (%) (Auto) 1.7 % (0.0-3.0) Basophils (%) (Auto) 0.9 % (0.0-2.0) Sodium Level 142 MMOL/L (136-145) Potassium Level 3.8 MMOL/L (3.5-5.1) Chloride Level 106 MMOL/L (98-107) Carbon Dioxide Level 31 MMOL/L (21-32) Anion Gap 5 mmol/L (5-15) Blood Urea Nitrogen 15 mg/dL (7-18) Creatinine 0.4 MG/DL (0.55-1.30) L Estimat Glomerular Filtration Rate mL/min (>60) Glucose Level 112 MG/DL (74-106) H Calcium Level 8.5 MG/DL (8.5-10.1) Phosphorus Level 3.1 MG/DL (2.5-4.9) Magnesium Level 2.1 MG/DL (1.8-2.4) Arterial Blood pH 7.480 (7.350-7.450) 7.460 (7.350-7.450) Arterial Blood Partial Pressure CO2 37.4 mmHg (35.0-45.0) 47.7 mmHg (35.0-45.0) H Arterial Blood Partial Pressure O2 54.7 mmHg (75.0-100.0) L 101.0 mmHg (75.0-100.0) H Arterial Blood HCO3 27.7 mmol/L (22.0-26.0) H 32.9 mmol/L (22.0-26.0) H Arterial Blood Oxygen Saturation 88.6 % (92.0-98.0) L 97.5 % (92.0-98.0) Arterial Blood Base Excess 4.3 7.9 Kang Test Positive Positive Vancomycin Level Trough 6.4 ug/mL (5.0-12.0) Microbiology Date/Time Source Procedure Growth Status 01/12/18 17:00 Sputum Expectorated Gram Stain - Final Complete 01/12/18 17:00 Sputum Expectorated Sputum Culture - Final NORMAL UPPER RESPIRATORY LAITH PRESENT Complete 01/11/18 22:20 Sacral Wound Gram Stain - Final Resulted 01/11/18 22:20 Wound Culture - Preliminary Staphylococcus Aureus - Mrsa Resulted Objective HEAD AND NECK: Shows positive for JVD. LUNGS: Coarse rhonchi. CARDIOVASCULAR: Irregular and tachycardic S1, S2 ABDOMEN: Status post G-tube. EXTREMITIES: No pitting edema. Her upper extremities are contracted. Emmanuel Edgar MD January 14, 2018 16:20
[2018-01-14 20:00] VITALS: BP 138/79
[2018-01-15] VITALS: BP 135/88
[2018-01-15] MEDS: Albuterol/Ipratropium 3ml neb HHN SCH ×4 (00:18→19:33)
[2018-01-15] MEDS: Vancomycin 500mg/D5W 110ml IVPB SCH ×4 (01:00→12:46)
[2018-01-15 04:00] VITALS: BP 141/78
[2018-01-15 05:12] LABS: ANION GAP 7 mmol/L (5-15); BLOOD UREA NITROGEN 10 mg/dL (7-18); CALCIUM 8.8 MG/DL (8.5-10.1); CARBON DIOXIDE 30 MMOL/L (21-32); CHLORIDE 104 MMOL/L (98-107); CREATININE 0.5 MG/DL (0.55-1.30); SODIUM 141 MMOL/L (136-145)
[2018-01-15] MEDS: NovoLOG Insulin Flexpen SUBQ SCH ×3 (05:12→18:00)
[2018-01-15] MEDS: Zosyn 3.375gm q8h **Extended infusion IVPB SCH ×6 (05:27→21:00)
[2018-01-15] MEDS: Heparin 5000 units/ml inj SUBQ SCH ×3 (05:29→22:00)
[2018-01-15 08:00] VITALS: BP 136/76
--- NOTE | 2018-01-15 08:14 | Pulmonology Progress Note ---
Assessment/Plan Assessment/Plan IMPRESSION: Hypoxemia, Pneumonia, pulmonary congestion. advanced age, dementia. acute on chronic encephalopathy PLAN care as is o2 as needed BIPAP and monitor respiratory care venous US ordered ABG on NC oxygen antibiotics and care check cultures and adjust monitor as is in REBEL with labile respiratory status patient full code and need to monitor for respiratory deterioration impression, plan, and exam edited and reviewed in detail care discussed with RN Subjective ROS Limited/Unobtainable: Yes Allergies: Coded Allergies: No Known Allergies (Verified , 03/10/07) Subjective on BIPAP overnight difficulty off BIPAP requiring most of the day/night Objective Last 24 Hour Vital Signs Date Time Temp Pulse Resp B/P (MAP) Pulse Ox O2 Delivery O2 Flow Rate FiO2 01/15/18 08:00 97.9 92 31 136/76 97 Bi-pap 40 97.9 01/15/18 07:11 89 22 98 Bi-pap 40 01/15/18 07:05 79 20 98 Bi-pap 40 01/15/18 07:05 Bi-pap 40 01/15/18 07:05 98 Bi-pap 40 01/15/18 04:56 85 20 95 Full Face 40 01/15/18 04:00 74 01/15/18 04:00 98.6 88 20 141/78 98 Venturi Mask 45 98.6 01/15/18 02:55 87 25 93 Full Face 40 01/15/18 00:36 104 25 92 Bi-pap 100 01/15/18 00:18 70 28 94 Bi-pap 100 01/15/18 00:00 98.1 91 18 135/88 99 Venturi Mask 45 98.1 01/15/18 00:00 89 01/15/18 00:00 70 28 94 Full Face 100 01/14/18 20:00 86 01/14/18 20:00 98.5 99 21 138/79 97 Venturi Mask 45 98.5 01/14/18 19:59 88 25 100 Venturi Mask 10.0 45 01/14/18 19:46 Venturi Mask 10.0 45 01/14/18 19:46 89 25 96 Venturi Mask 10.0 45 01/14/18 19:46 96 Venturi Mask 10.0 45 01/14/18 16:00 98.4 103 20 144/87 99 Venturi Mask 45 98.4 01/14/18 15:27 106 01/14/18 14:18 96 24 97 Venturi Mask 10.0 45 01/14/18 14:10 98 Venturi Mask 45 01/14/18 14:08 95 26 98 Venturi Mask 14.0 55 01/14/18 13:00 97.9 99 19 137/82 99 Venturi Mask 55 97.9 01/14/18 11:57 98 01/14/18 09:49 99 01/14/18 09:20 26 96 Venturi Mask 55 Intake and Output 01/14/18 01/15/18 19:00 07:00 Intake Total 732.5 ml 750.0 ml Output Total 375 ml 1000 ml Balance 357.5 ml -250.0 ml Free Water 50 ml IV Total 192.5 ml 220.0 ml Tube Feeding 480 ml 480 ml Other 60 ml Output Urine Total 375 ml 1000 ml # Bowel Movements 2 3 Objective GENERAL: The patient is an ill-appearing female. reduced LOC. HEENT: Negative. NECK: Supple. LUNGS: scattered rhonchi. Air entry reduced. hypoventilatory CARDIAC: Normal S1, S2. Regular rate and rhythm. Soft systolic murmur at left parasternal border. ABDOMEN: Soft, nontender. GT and no distention; no HSM EXTREMITIES: No cyanosis or clubbing. SKIN: Noted and reviewed. reviewed Microbiology Date/Time Source Procedure Growth Status 01/12/18 17:00 Sputum Expectorated Gram Stain - Final Complete 01/12/18 17:00 Sputum Expectorated Sputum Culture - Final NORMAL UPPER RESPIRATORY LAITH PRESENT Complete Laboratory Tests 01/14/18 09:13: Arterial Blood pH 7.480H, Arterial Blood Partial Pressure CO2 37.4, Arterial Blood Partial Pressure O2 54.7L, Arterial Blood HCO3 27.7H, Arterial Blood Oxygen Saturation 88.6L, Arterial Blood Base Excess 4.3, Kang Test Positive 01/14/18 10:59: Arterial Blood pH 7.460H, Arterial Blood Partial Pressure CO2 47.7H, Arterial Blood Partial Pressure O2 101.0H, Arterial Blood HCO3 32.9H, Arterial Blood Oxygen Saturation 97.5, Arterial Blood Base Excess 7.9, Kang Test Positive 01/14/18 12:15: Vancomycin Level Trough 6.4 01/15/18 03:30: Sodium Level 141, Potassium Level 4.0, Chloride Level 104, Carbon Dioxide Level 30, Anion Gap 7, Blood Urea Nitrogen 10, Creatinine 0.5L, Estimat Glomerular Filtration Rate , Glucose Level 98, Calcium Level 8.8 Current Medications Medications (Trade) Dose Ordered Sig/Rosetta Route PRN Reason Start Time Stop Time Status Last Admin Dose Admin Acetaminophen (Tylenol) 650 mg Q4H PRN ORAL Mild Pain (Pain Scale 1-3) 01/11/18 04:45 02/10/18 04:44 Albuterol Sulfate (Proventil) 2.5 mg Q6H PRN HHN Shortness of Breath 01/11/18 04:45 01/16/18 04:44 Albuterol/ Ipratropium (Albuterol/ Ipratropium) 3 ml EVERY 6 HOURS HHN 01/11/18 06:00 01/16/18 05:59 01/15/18 07:26 Aspirin (ASA) 81 mg DAILY ORAL 01/11/18 09:00 02/10/18 08:59 01/14/18 09:49 Dextrose (Dextrose 50%) 25 ml STAT PRN IV Hypoglycemia 01/11/18 04:45 02/10/18 04:44 Dextrose (Dextrose 50%) 50 ml STAT PRN IV Hypoglycemia 01/11/18 04:45 02/10/18 04:44 Digoxin (Lanoxin) 0.125 mg DAILY GT 01/14/18 09:00 02/13/18 08:59 01/14/18 09:49 Docusate Sodium (Colace) 100 mg EVERY 12 HOURS GT 01/11/18 11:00 02/10/18 10:59 01/14/18 20:17 Heparin Sodium (Porcine) (Heparin 5000 units/ml) 5,000 units EVERY 8 HOURS SUBQ 01/11/18 06:00 02/10/18 05:59 01/15/18 05:29 Insulin Aspart (NovoLOG) EVERY 6 HOURS SUBQ 01/11/18 18:00 02/10/18 11:29 01/13/18 17:11 Ondansetron HCl (Zofran) 4 mg Q6H PRN IVP Nausea & Vomiting 01/11/18 04:45 02/10/18 04:44 Piperacillin Sod/ Tazobactam Sod 3.375 gm/Sodium Chloride 110 ml @ 27.5 mls/hr EVERY 8 HOURS IVPB 01/12/18 15:00 01/17/18 14:59 01/15/18 05:27 Vancomycin HCl (Vanco rx to dose) 1 ea DAILY PRN MISC Per rx protocol 01/12/18 12:45 02/11/18 12:44 Vancomycin HCl 500 mg/Dextrose 110 ml @ 110 mls/hr Q12HR@0100,1300 IVPB 01/15/18 01:00 01/20/18 00:59 01/15/18 01:00 Chase Coronado MD Jan 15, 2018 08:14
[2018-01-15] MEDS: Docusate 100mg/10ml Liq GT SCH ×2 (08:36→21:00)
[2018-01-15] MEDS: Aspirin Baby 81mg ORAL SCH (08:36)
[2018-01-15] MEDS: Digoxin Elixir 0.125mg GT SCH (08:36)
--- NOTE | 2018-01-15 09:23 | Nephrology Progress Note ---
Assessment/Plan Assessment/Plan 1. Resp FL- Nosocomial PNA - Abx, patient decompensated. Back on BiPAP. SW cslt to evaluate POA and code status 2. PNA- Abx pe rID 3. Nutrition- on TF's 4. DM- Glucerna and ISS 5. DVT Prophylaxis with heparin sub q 6. Afib- mgmt per cardiology Patient full code Subjective Date patient seen: Jan 15, 2018 Time patient seen: 09:20 ROS Limited/Unobtainable: Yes Allergies: Coded Allergies: No Known Allergies (Verified , 03/10/07) Subjective Patient back on BiPAP Objective Last 24 Hour Vital Signs Date Time Temp Pulse Resp B/P (MAP) Pulse Ox O2 Delivery O2 Flow Rate FiO2 01/15/18 08:36 89 01/15/18 08:00 97.9 92 31 136/76 97 Bi-pap 40 97.9 01/15/18 08:00 40 01/15/18 07:11 89 22 98 Bi-pap 40 01/15/18 07:05 79 20 98 Bi-pap 40 01/15/18 07:05 Bi-pap 40 01/15/18 07:05 98 Bi-pap 40 01/15/18 04:56 85 20 95 Full Face 40 01/15/18 04:00 74 01/15/18 04:00 98.6 88 20 141/78 98 Venturi Mask 45 98.6 01/15/18 02:55 87 25 93 Full Face 40 01/15/18 00:36 104 25 92 Bi-pap 100 01/15/18 00:18 70 28 94 Bi-pap 100 01/15/18 00:00 98.1 91 18 135/88 99 Venturi Mask 45 98.1 01/15/18 00:00 89 01/15/18 00:00 70 28 94 Full Face 100 01/14/18 20:00 86 01/14/18 20:00 98.5 99 21 138/79 97 Venturi Mask 45 98.5 01/14/18 19:59 88 25 100 Venturi Mask 10.0 45 01/14/18 19:46 Venturi Mask 10.0 45 01/14/18 19:46 89 25 96 Venturi Mask 10.0 45 01/14/18 19:46 96 Venturi Mask 10.0 45 01/14/18 16:00 98.4 103 20 144/87 99 Venturi Mask 45 98.4 01/14/18 15:27 106 01/14/18 14:18 96 24 97 Venturi Mask 10.0 45 01/14/18 14:10 98 Venturi Mask 45 01/14/18 14:08 95 26 98 Venturi Mask 14.0 55 01/14/18 13:00 97.9 99 19 137/82 99 Venturi Mask 55 97.9 01/14/18 11:57 98 01/14/18 09:49 99 Intake and Output 01/14/18 01/15/18 19:00 07:00 Intake Total 732.5 ml 750.0 ml Output Total 375 ml 1000 ml Balance 357.5 ml -250.0 ml Free Water 50 ml IV Total 192.5 ml 220.0 ml Tube Feeding 480 ml 480 ml Other 60 ml Output Urine Total 375 ml 1000 ml # Bowel Movements 2 3 Laboratory Tests 01/14/18 10:59: Arterial Blood pH 7.460H, Arterial Blood Partial Pressure CO2 47.7H, Arterial Blood Partial Pressure O2 101.0H, Arterial Blood HCO3 32.9H, Arterial Blood Oxygen Saturation 97.5, Arterial Blood Base Excess 7.9, Kang Test Positive 01/14/18 12:15: Vancomycin Level Trough 6.4 01/15/18 03:30: Sodium Level 141, Potassium Level 4.0, Chloride Level 104, Carbon Dioxide Level 30, Anion Gap 7, Blood Urea Nitrogen 10, Creatinine 0.5L, Estimat Glomerular Filtration Rate , Glucose Level 98, Calcium Level 8.8 Height (Feet): 5 Height (Inches): 2.00 Weight (Pounds): 96 General Appearance: confused EENT: PERRL/EOMI, normal ENT inspection Neck: normal alignment, supple Cardiovascular: regularly irregular Respiratory/Chest: rhonchi - bilaterally Abdomen: non tender, soft Edema: no edema noted Arm (L), no edema noted Arm (R), no edema noted Leg (L), no edema noted Leg (R), no edema noted Pedal (L), no edema noted Pedal (R), no edema noted Generalized Jorge Graf M.D. Jan 15, 2018 09:23
[2018-01-15 12:00] VITALS: BP 138/68
--- NOTE | 2018-01-15 13:33 | Infectious Diseases Prog Note ---
Assessment/Plan Problems: (1) Aspiration pneumonia Assessment & Plan: sputum culture grew normal upper respiratory anjel , will continue zosyn empiric coverage for 10 days total , with aspiration precaution and keep HOB > 30 degree all the time (2) Sacral wound Assessment & Plan: with culture grew methicillin resistant staph aureus , keep off loading, recommend local wound care and dressing change . will treat with vancomycin for two weeks (3) UTI (urinary tract infection) Assessment & Plan: already on zosyn , culture showed no growth (4) Sepsis Assessment & Plan: with staphy epidermidis , source most likely her sacral wound , will treat with vancomycin for two weeks . 2D echo was not able to evaluate the valves well , will repeat blood culture to confirm clearance, will continue vancomycin for tow weeks starting from the clearance date. await repeated blood culture (5) Respiratory failure with hypoxia Assessment & Plan: improving, due to the above, continue high flow oxygen, monitor CXR and ABG, pulmonary is following Subjective ROS Limited/Unobtainable: Yes Allergies: Coded Allergies: No Known Allergies (Verified , 03/10/07) Subjective she was high flow oxygen via mask , awake and alert, unresponsive to verbal commands . resting in bed, comfortable, afebrile Objective Vital Signs Last 24 Hour Vital Signs Date Time Temp Pulse Resp B/P (MAP) Pulse Ox O2 Delivery O2 Flow Rate FiO2 01/15/18 12:55 90 22 97 Venturi Mask 35 01/15/18 12:52 86 20 98 Venturi Mask 35 01/15/18 12:00 97.7 92 23 138/68 95 Venturi Mask 35 97.7 01/15/18 08:36 89 01/15/18 08:00 97.9 92 31 136/76 97 Bi-pap 40 97.9 01/15/18 08:00 40 01/15/18 08:00 99 01/15/18 07:11 89 22 98 Bi-pap 40 01/15/18 07:05 79 20 98 Bi-pap 40 01/15/18 07:05 Bi-pap 40 01/15/18 07:05 98 Bi-pap 40 01/15/18 04:56 85 20 95 Full Face 40 01/15/18 04:00 74 01/15/18 04:00 98.6 88 20 141/78 98 Venturi Mask 45 98.6 01/15/18 02:55 87 25 93 Full Face 40 01/15/18 00:36 104 25 92 Bi-pap 100 01/15/18 00:18 70 28 94 Bi-pap 100 01/15/18 00:00 98.1 91 18 135/88 99 Venturi Mask 45 98.1 01/15/18 00:00 89 01/15/18 00:00 70 28 94 Full Face 100 01/14/18 20:00 86 01/14/18 20:00 98.5 99 21 138/79 97 Venturi Mask 45 98.5 01/14/18 19:59 88 25 100 Venturi Mask 10.0 45 01/14/18 19:46 Venturi Mask 10.0 45 01/14/18 19:46 89 25 96 Venturi Mask 10.0 45 01/14/18 19:46 96 Venturi Mask 10.0 45 01/14/18 16:00 98.4 103 20 144/87 99 Venturi Mask 45 98.4 01/14/18 15:27 106 01/14/18 14:18 96 24 97 Venturi Mask 10.0 45 01/14/18 14:10 98 Venturi Mask 45 01/14/18 14:08 95 26 98 Venturi Mask 14.0 55 Height (Feet): 5 Height (Inches): 2.00 Weight (Pounds): 96 General Appearance: WD/WN, no acute distress HEENT: normocephalic, atraumatic, anicteric, mucous membranes moist Respiratory/Chest: chest wall non-tender, normal breath sounds, no respiratory distress, no accessory muscle use, decreased breath sounds Cardiovascular: normal peripheral pulses, normal rate, regular rhythm, no gallop/murmur, no JVD Abdomen: normal bowel sounds, soft, non tender, no organomegaly, non distended , no mass Extremities: no cyanosis, no clubbing Skin: no rash, no lesions, no ulcers Neurologic/Psychiatric: responsive Lymphatic: no neck adenopathy, no groin adenopathy Musculoskeletal: normal muscle bulk, no effusion Microbiology Date/Time Source Procedure Growth Status 01/12/18 17:00 Sputum Expectorated Gram Stain - Final Complete 01/12/18 17:00 Sputum Expectorated Sputum Culture - Final NORMAL UPPER RESPIRATORY ANJEL PRESENT Complete Laboratory Tests Test 01/15/18 03:30 01/15/18 08:14 Sodium Level 141 MMOL/L (136-145) Potassium Level 4.0 MMOL/L (3.5-5.1) Chloride Level 104 MMOL/L (98-107) Carbon Dioxide Level 30 MMOL/L (21-32) Anion Gap 7 mmol/L (5-15) Blood Urea Nitrogen 10 mg/dL (7-18) Creatinine 0.5 MG/DL (0.55-1.30) L Estimat Glomerular Filtration Rate mL/min (>60) Glucose Level 98 MG/DL (74-106) Calcium Level 8.8 MG/DL (8.5-10.1) Arterial Blood pH 7.470 (7.350-7.450) Arterial Blood Partial Pressure CO2 39.0 mmHg (35.0-45.0) Arterial Blood Partial Pressure O2 102.0 mmHg (75.0-100.0) H Arterial Blood HCO3 28.1 mmol/L (22.0-26.0) H Arterial Blood Oxygen Saturation 97.6 % (92.0-98.0) Arterial Blood Base Excess 4.2 Kang Test Positive Current Medications Medications (Trade) Dose Ordered Sig/Rosetta Route PRN Reason Start Time Stop Time Status Last Admin Dose Admin Acetaminophen (Tylenol) 650 mg Q4H PRN ORAL Mild Pain (Pain Scale 1-3) 01/11/18 04:45 02/10/18 04:44 Albuterol Sulfate (Proventil) 2.5 mg Q6H PRN HHN Shortness of Breath 01/11/18 04:45 01/16/18 04:44 Albuterol/ Ipratropium (Albuterol/ Ipratropium) 3 ml EVERY 6 HOURS HHN 01/11/18 06:00 01/16/18 05:59 01/15/18 12:54 Aspirin (ASA) 81 mg DAILY ORAL 01/11/18 09:00 02/10/18 08:59 01/15/18 08:36 Dextrose (Dextrose 50%) 25 ml STAT PRN IV Hypoglycemia 01/11/18 04:45 02/10/18 04:44 Dextrose (Dextrose 50%) 50 ml STAT PRN IV Hypoglycemia 01/11/18 04:45 02/10/18 04:44 Digoxin (Lanoxin) 0.125 mg DAILY GT 01/14/18 09:00 02/13/18 08:59 01/15/18 08:36 Docusate Sodium (Colace) 100 mg EVERY 12 HOURS GT 01/11/18 11:00 02/10/18 10:59 01/15/18 08:36 Heparin Sodium (Porcine) (Heparin 5000 units/ml) 5,000 units EVERY 8 HOURS SUBQ 01/11/18 06:00 02/10/18 05:59 01/15/18 05:29 Insulin Aspart (NovoLOG) EVERY 6 HOURS SUBQ 01/11/18 18:00 02/10/18 11:29 01/13/18 17:11 Ondansetron HCl (Zofran) 4 mg Q6H PRN IVP Nausea & Vomiting 01/11/18 04:45 02/10/18 04:44 Piperacillin Sod/ Tazobactam Sod 3.375 gm/Sodium Chloride 110 ml @ 27.5 mls/hr EVERY 8 HOURS IVPB 01/12/18 15:00 01/17/18 14:59 01/15/18 05:27 Vancomycin HCl (Vanco rx to dose) 1 ea DAILY PRN MISC Per rx protocol 01/12/18 12:45 02/11/18 12:44 Vancomycin HCl 500 mg/Dextrose 110 ml @ 110 mls/hr Q12HR@0100,1300 IVPB 01/15/18 01:00 01/20/18 00:59 01/15/18 12:46 Dom Hoffman M.D. Jan 15, 2018 13:33
--- NOTE | 2018-01-15 14:05 | Cardiac Electrophysiology PN ---
Assessment/Plan Assessment/Plan 1. Paroxysmal atrial fibrillation with rapid ventricular response. Controlled on Dig through G-tube. On Subcutaneous heparin 5000 t.i.d. Echocardiogram also showed normal left ventricular systolic function. 2. Hypertension. Systolic blood pressure is borderline in the 90s. 3. Fever and Aspiration pneumonia and sepsis, on broad-spectrum antibiotic with vancomycin and Zosyn.Having blood cultures again 4. Dysphagia, status post PEG placement. 5. Hypernatremia. Resolved per Dr. Lara. 6. Sacral decubitus DW RN Subjective Subjective On Face mask now . In SR. Getting blood cultures drawn Objective Last 24 Hour Vital Signs Date Time Temp Pulse Resp B/P (MAP) Pulse Ox O2 Delivery O2 Flow Rate FiO2 01/15/18 12:55 90 22 97 Venturi Mask 35 01/15/18 12:52 86 20 98 Venturi Mask 35 01/15/18 12:00 97.7 92 23 138/68 95 Venturi Mask 35 97.7 01/15/18 08:36 89 01/15/18 08:00 97.9 92 31 136/76 97 Bi-pap 40 97.9 01/15/18 08:00 40 01/15/18 08:00 99 01/15/18 07:11 89 22 98 Bi-pap 40 01/15/18 07:05 79 20 98 Bi-pap 40 01/15/18 07:05 Bi-pap 40 01/15/18 07:05 98 Bi-pap 40 01/15/18 04:56 85 20 95 Full Face 40 01/15/18 04:00 74 01/15/18 04:00 98.6 88 20 141/78 98 Venturi Mask 45 98.6 01/15/18 02:55 87 25 93 Full Face 40 01/15/18 00:36 104 25 92 Bi-pap 100 01/15/18 00:18 70 28 94 Bi-pap 100 01/15/18 00:00 98.1 91 18 135/88 99 Venturi Mask 45 98.1 01/15/18 00:00 89 01/15/18 00:00 70 28 94 Full Face 100 01/14/18 20:00 86 01/14/18 20:00 98.5 99 21 138/79 97 Venturi Mask 45 98.5 01/14/18 19:59 88 25 100 Venturi Mask 10.0 45 01/14/18 19:46 Venturi Mask 10.0 45 01/14/18 19:46 89 25 96 Venturi Mask 10.0 45 01/14/18 19:46 96 Venturi Mask 10.0 45 01/14/18 16:00 98.4 103 20 144/87 99 Venturi Mask 45 98.4 01/14/18 15:27 106 01/14/18 14:18 96 24 97 Venturi Mask 10.0 45 01/14/18 14:10 98 Venturi Mask 45 01/14/18 14:08 95 26 98 Venturi Mask 14.0 55 Intake and Output 01/14/18 01/15/18 19:00 07:00 Intake Total 732.5 ml 777.5 ml Output Total 375 ml 1000 ml Balance 357.5 ml -222.5 ml Free Water 50 ml IV Total 192.5 ml 247.5 ml Tube Feeding 480 ml 480 ml Other 60 ml Output Urine Total 375 ml 1000 ml # Bowel Movements 2 3 Laboratory Tests Test 01/15/18 03:30 01/15/18 08:14 Sodium Level 141 MMOL/L (136-145) Potassium Level 4.0 MMOL/L (3.5-5.1) Chloride Level 104 MMOL/L (98-107) Carbon Dioxide Level 30 MMOL/L (21-32) Anion Gap 7 mmol/L (5-15) Blood Urea Nitrogen 10 mg/dL (7-18) Creatinine 0.5 MG/DL (0.55-1.30) L Estimat Glomerular Filtration Rate mL/min (>60) Glucose Level 98 MG/DL (74-106) Calcium Level 8.8 MG/DL (8.5-10.1) Arterial Blood pH 7.470 (7.350-7.450) Arterial Blood Partial Pressure CO2 39.0 mmHg (35.0-45.0) Arterial Blood Partial Pressure O2 102.0 mmHg (75.0-100.0) H Arterial Blood HCO3 28.1 mmol/L (22.0-26.0) H Arterial Blood Oxygen Saturation 97.6 % (92.0-98.0) Arterial Blood Base Excess 4.2 Kang Test Positive Microbiology Date/Time Source Procedure Growth Status 01/12/18 17:00 Sputum Expectorated Gram Stain - Final Complete 01/12/18 17:00 Sputum Expectorated Sputum Culture - Final NORMAL UPPER RESPIRATORY LAITH PRESENT Complete Objective HEAD AND NECK: Shows positive for JVD. LUNGS: Coarse rhonchi. CARDIOVASCULAR: Irregular and tachycardic S1, S2 ABDOMEN: Status post G-tube. EXTREMITIES: No pitting edema. Her upper extremities are contracted. Emmanuel Edgar MD Jan 15, 2018 14:05
[2018-01-15 16:00] VITALS: BP 152/85
[2018-01-15 20:00] VITALS: BP 144/86
[2018-01-16] VITALS (7 sets, daily range): BP systolic 132–160; BP diastolic 78–99
[2018-01-16] MEDS: Albuterol/Ipratropium 3ml neb HHN SCH (00:58)
[2018-01-16] MEDS: Vancomycin 500mg/D5W 110ml IVPB SCH ×4 (01:51→12:39)
[2018-01-16 05:10] LABS: BASOPHILS % (AUTO) 1.1 % (0.0-2.0); EOSINOPHILS % (AUTO) 3.6 % (0.0-3.0); HEMATOCRIT 39.3 % (37.0-47.0); HEMOGLOBIN 12.5 G/DL (12.0-16.0); LYMPHOCYTES % (AUTO) 25.4 % (20.0-45.0); MEAN CORPUSCULAR VOLUME 88 FL (80-99); MONOCYTES % (AUTO) 7.4 % (1.0-10.0); NEUTROPHILS % (AUTO) 62.6 % (45.0-75.0); PLATELET COUNT 293 K/UL (150-450); RED BLOOD COUNT 4.49 M/UL (4.20-5.40); RED CELL DISTRIBUTION WIDTH 15.5 % (11.6-14.8); WHITE BLOOD COUNT 6.4 K/UL (4.8-10.8)
[2018-01-16 05:16] LABS: ANION GAP 7 mmol/L (5-15); BLOOD UREA NITROGEN 10 mg/dL (7-18); CALCIUM 9.1 MG/DL (8.5-10.1); CARBON DIOXIDE 28 MMOL/L (21-32); CHLORIDE 104 MMOL/L (98-107); CREATININE 0.5 MG/DL (0.55-1.30); POTASSIUM 4.2 MMOL/L (3.5-5.1); SODIUM 139 MMOL/L (136-145)
[2018-01-16] MEDS: Heparin 5000 units/ml inj SUBQ SCH ×3 (05:58→21:21)
[2018-01-16] MEDS: Zosyn 3.375gm q8h **Extended infusion IVPB SCH ×6 (05:59→20:56)
[2018-01-16] MEDS: NovoLOG Insulin Flexpen SUBQ SCH ×4 (05:59→17:46)
--- NOTE | 2018-01-16 07:21 | Nephrology Progress Note ---
Assessment/Plan Assessment/Plan 1. Resp FL- Nosocomial PNA - Abx per ID - patient off BiPAP, plan for DC Thursday if patient stable 2. PNA- Abx per ID. Switch to GTub when possible in anticipation for DC 3. Nutrition- on TF's 4. DM- Glucerna and ISS 5. DVT Prophylaxis with heparin sub q 6. Afib- mgmt per cardiology. Stable Patient full code Subjective Date patient seen: Jan 16, 2018 Time patient seen: 07:19 ROS Limited/Unobtainable: Yes Allergies: Coded Allergies: No Known Allergies (Verified , 03/10/07) Subjective Patient seemingly improved. Off BiPAP again Objective Last 24 Hour Vital Signs Date Time Temp Pulse Resp B/P (MAP) Pulse Ox O2 Delivery O2 Flow Rate FiO2 01/16/18 07:02 Nasal Cannula 3.0 32 01/16/18 07:02 93 Nasal Cannula 3.0 32 01/16/18 04:00 97.9 94 19 132/78 98 Nasal Cannula 3.0 97.9 01/16/18 01:08 94 20 99 Nasal Cannula 3.0 32 01/16/18 00:58 93 20 97 Nasal Cannula 3.0 32 01/16/18 00:00 98.1 98 16 145/86 95 Nasal Cannula 3.0 98.1 01/16/18 00:00 95 01/15/18 20:00 98.1 99 16 144/86 95 Nasal Cannula 3.0 98.1 01/15/18 19:43 88 20 99 Nasal Cannula 3.0 32 01/15/18 19:33 95 Nasal Cannula 3.0 32 01/15/18 19:33 101 20 95 Nasal Cannula 3.0 32 01/15/18 19:33 Nasal Cannula 3.0 32 01/15/18 16:00 91 01/15/18 16:00 96.8 99 24 152/85 94 Venturi Mask 6.0 35 96.8 01/15/18 12:55 90 22 97 Venturi Mask 35 01/15/18 12:52 86 20 98 Venturi Mask 35 01/15/18 12:00 93 01/15/18 12:00 97.7 92 23 138/68 95 Venturi Mask 35 97.7 01/15/18 08:36 89 01/15/18 08:00 97.9 92 31 136/76 97 Bi-pap 40 97.9 01/15/18 08:00 40 01/15/18 08:00 99 Intake and Output 01/15/18 01/16/18 19:00 07:00 Intake Total 882.5 ml Output Total 800 ml Balance 82.5 ml Free Water 50 ml IV Total 302.5 ml Tube Feeding 480 ml Other 50 ml Output Urine Total 800 ml # Bowel Movements 2 Laboratory Tests 01/15/18 08:14: Arterial Blood pH 7.470H, Arterial Blood Partial Pressure CO2 39.0, Arterial Blood Partial Pressure O2 102.0H, Arterial Blood HCO3 28.1H, Arterial Blood Oxygen Saturation 97.6, Arterial Blood Base Excess 4.2, Kang Test Positive 01/16/18 00:15: Vancomycin Level Trough 11.0 01/16/18 03:30: White Blood Count 6.4, Red Blood Count 4.49, Hemoglobin 12.5, Hematocrit 39.3, Mean Corpuscular Volume 88, Mean Corpuscular Hemoglobin 27.8, Mean Corpuscular Hemoglobin Concent 31.7L, Red Cell Distribution Width 15.5H, Platelet Count 293 , Mean Platelet Volume 6.8, Neutrophils (%) (Auto) 62.6, Lymphocytes (%) (Auto) 25.4, Monocytes (%) (Auto) 7.4, Eosinophils (%) (Auto) 3.6H, Basophils (%) (Auto ) 1.1, Sodium Level 139, Potassium Level 4.2, Chloride Level 104, Carbon Dioxide Level 28, Anion Gap 7, Blood Urea Nitrogen 10, Creatinine 0.5L, Estimat Glomerular Filtration Rate , Glucose Level 97, Calcium Level 9.1 Height (Feet): 5 Height (Inches): 2.00 Weight (Pounds): 96 General Appearance: no apparent distress EENT: normal ENT inspection, TMs normal Neck: normal alignment, supple Cardiovascular: normal rate, regular rhythm Respiratory/Chest: rhonchi - bilaterally Abdomen: non tender, soft Edema: no edema noted Arm (L), no edema noted Arm (R), no edema noted Leg (L), no edema noted Leg (R), no edema noted Pedal (L), no edema noted Pedal (R), no edema noted Generalized Jorge Graf M.D. Jan 16, 2018 07:21
[2018-01-16] MEDS: Aspirin Baby 81mg ORAL SCH (09:47)
[2018-01-16] MEDS: Docusate 100mg/10ml Liq GT SCH ×2 (09:48→21:21)
[2018-01-16] MEDS: Digoxin Elixir 0.125mg GT SCH (09:48)
--- NOTE | 2018-01-16 10:37 | Diagnostic Imaging Report ---
INDICATION: Shortness of breath COMPARISON: Chest x-ray dated 01/12/18 FINDINGS: Single frontal view demonstrates a normal cardiomediastinal silhouette. Improved aeration at the left lung base. Atherosclerotic vascular disease. No pleural effusions. The visualized osseous structures are within normal limits. IMPRESSION: Improved aeration at the left lung base. Atherosclerotic vascular disease.
--- NOTE | 2018-01-16 13:18 | Pulmonology Progress Note ---
Assessment/Plan Assessment/Plan IMPRESSION: Hypoxemia, Pneumonia, pulmonary congestion. advanced age, dementia. acute on chronic encephalopathy PLAN care as is o2 as needed BIPAP off for now respiratory care noted acid base better antibiotics and care ID follow up ok for tele patient full code will follow up for further improvement impression, plan, and exam edited and reviewed in detail care discussed with RN Subjective ROS Limited/Unobtainable: Yes Allergies: Coded Allergies: No Known Allergies (Verified , 03/10/07) Subjective off BIPAP currently on NC cxr improved Objective Last 24 Hour Vital Signs Date Time Temp Pulse Resp B/P (MAP) Pulse Ox O2 Delivery O2 Flow Rate FiO2 01/16/18 09:48 91 01/16/18 08:00 100.8 91 22 143/78 92 Nasal Cannula 3.0 100.8 01/16/18 08:00 86 01/16/18 07:33 96 20 Nasal Cannula 3.0 32 01/16/18 07:02 Nasal Cannula 3.0 32 01/16/18 07:02 93 Nasal Cannula 3.0 32 01/16/18 04:00 95 01/16/18 04:00 97.9 94 19 132/78 98 Nasal Cannula 3.0 97.9 01/16/18 01:08 94 20 99 Nasal Cannula 3.0 32 01/16/18 00:58 93 20 97 Nasal Cannula 3.0 32 01/16/18 00:00 98.1 98 16 145/86 95 Nasal Cannula 3.0 98.1 01/16/18 00:00 95 01/15/18 20:00 98.1 99 16 144/86 95 Nasal Cannula 3.0 98.1 01/15/18 19:43 88 20 99 Nasal Cannula 3.0 32 01/15/18 19:33 95 Nasal Cannula 3.0 32 01/15/18 19:33 101 20 95 Nasal Cannula 3.0 32 01/15/18 19:33 Nasal Cannula 3.0 32 01/15/18 16:00 91 01/15/18 16:00 96.8 99 24 152/85 94 Venturi Mask 6.0 35 96.8 Intake and Output 01/15/18 01/16/18 19:00 07:00 Intake Total 882.5 ml 870.0 ml Output Total 800 ml 800 ml Balance 82.5 ml 70.0 ml Free Water 50 ml 150 ml IV Total 302.5 ml 220.0 ml Tube Feeding 480 ml 440 ml Other 50 ml 60 ml Output Urine Total 800 ml 800 ml # Bowel Movements 2 1 Objective GENERAL: The patient is an ill-appearing female. reduced LOC. HEENT: Negative. NECK: Supple. LUNGS: reduced rhonchi. Air entry somewhat better CARDIAC: Normal S1, S2. Regular rate and rhythm. Soft systolic murmur at left parasternal border. ABDOMEN: Soft, nontender. GT and no distention; no HSM EXTREMITIES: No cyanosis or clubbing. SKIN: Noted and reviewed. reviewed Laboratory Tests 01/16/18 00:15: Vancomycin Level Trough 11.0 01/16/18 03:30: White Blood Count 6.4, Red Blood Count 4.49, Hemoglobin 12.5, Hematocrit 39.3, Mean Corpuscular Volume 88, Mean Corpuscular Hemoglobin 27.8, Mean Corpuscular Hemoglobin Concent 31.7L, Red Cell Distribution Width 15.5H, Platelet Count 293 , Mean Platelet Volume 6.8, Neutrophils (%) (Auto) 62.6, Lymphocytes (%) (Auto) 25.4, Monocytes (%) (Auto) 7.4, Eosinophils (%) (Auto) 3.6H, Basophils (%) (Auto ) 1.1, Sodium Level 139, Potassium Level 4.2, Chloride Level 104, Carbon Dioxide Level 28, Anion Gap 7, Blood Urea Nitrogen 10, Creatinine 0.5L, Estimat Glomerular Filtration Rate , Glucose Level 97, Calcium Level 9.1 Current Medications Medications (Trade) Dose Ordered Sig/Rosetta Route PRN Reason Start Time Stop Time Status Last Admin Dose Admin Acetaminophen (Tylenol) 650 mg Q4H PRN ORAL Mild Pain (Pain Scale 1-3) 01/11/18 04:45 02/10/18 04:44 Aspirin (ASA) 81 mg DAILY ORAL 01/11/18 09:00 02/10/18 08:59 01/16/18 09:47 Dextrose (Dextrose 50%) 25 ml STAT PRN IV Hypoglycemia 01/11/18 04:45 02/10/18 04:44 Dextrose (Dextrose 50%) 50 ml STAT PRN IV Hypoglycemia 01/11/18 04:45 02/10/18 04:44 Digoxin (Lanoxin) 0.125 mg DAILY GT 01/14/18 09:00 02/13/18 08:59 01/16/18 09:48 Docusate Sodium (Colace) 100 mg EVERY 12 HOURS GT 01/11/18 11:00 02/10/18 10:59 01/16/18 09:48 Heparin Sodium (Porcine) (Heparin 5000 units/ml) 5,000 units EVERY 8 HOURS SUBQ 01/11/18 06:00 02/10/18 05:59 01/16/18 05:58 Insulin Aspart (NovoLOG) EVERY 6 HOURS SUBQ 01/11/18 18:00 02/10/18 11:29 01/13/18 17:11 Ondansetron HCl (Zofran) 4 mg Q6H PRN IVP Nausea & Vomiting 01/11/18 04:45 02/10/18 04:44 Piperacillin Sod/ Tazobactam Sod 3.375 gm/Sodium Chloride 110 ml @ 27.5 mls/hr EVERY 8 HOURS IVPB 01/12/18 15:00 01/21/18 14:59 01/16/18 05:59 Vancomycin HCl (Vanco rx to dose) 1 ea DAILY PRN MISC Per rx protocol 01/12/18 12:45 02/11/18 12:44 Vancomycin HCl 500 mg/Dextrose 110 ml @ 110 mls/hr Q12HR@0100,1300 IVPB 01/15/18 01:00 01/20/18 00:59 01/16/18 12:39 Chase Coronado MD Jan 16, 2018 13:18
--- NOTE | 2018-01-16 16:45 | Cardiology Progress Note ---
Assessment/Plan Status: stable Assessment/Plan Assessment/Plan 1. Paroxysmal atrial fibrillation with rapid ventricular response. Controlled on Dig through G-tube. On Subcutaneous heparin 5000 t.i.d. Echocardiogram also showed normal left ventricular systolic function. 2. Hypertension. Systolic blood pressure is borderline in the 90s. 3. Fever and Aspiration pneumonia and sepsis, on broad-spectrum antibiotic with vancomycin and Zosyn. Having blood cultures again - follow 4. Dysphagia, status post PEG placement. 5. Hypernatremia. Resolved 6. Sacral decubitus Subjective ROS Limited/Unobtainable: Yes Cardiovascular: Reports: irregular heart rate Respiratory: Reports: no symptoms Gastrointestinal/Abdominal: Reports: no symptoms Genitourinary: Reports: no symptoms Subjective No acute events, interval events notes, provider notes reviewed Objective Last 24 Hour Vital Signs Date Time Temp Pulse Resp B/P (MAP) Pulse Ox O2 Delivery O2 Flow Rate FiO2 01/16/18 12:00 92 01/16/18 12:00 98.5 94 22 144/96 98 Nasal Cannula 3.0 98.5 01/16/18 09:48 91 01/16/18 08:00 100.8 91 22 143/78 92 Nasal Cannula 3.0 100.8 01/16/18 08:00 86 01/16/18 07:33 96 20 Nasal Cannula 3.0 32 01/16/18 07:02 Nasal Cannula 3.0 32 01/16/18 07:02 93 Nasal Cannula 3.0 32 01/16/18 04:00 95 01/16/18 04:00 97.9 94 19 132/78 98 Nasal Cannula 3.0 97.9 01/16/18 01:08 94 20 99 Nasal Cannula 3.0 32 01/16/18 00:58 93 20 97 Nasal Cannula 3.0 32 01/16/18 00:00 98.1 98 16 145/86 95 Nasal Cannula 3.0 98.1 01/16/18 00:00 95 01/15/18 20:00 98.1 99 16 144/86 95 Nasal Cannula 3.0 98.1 01/15/18 19:43 88 20 99 Nasal Cannula 3.0 32 01/15/18 19:33 95 Nasal Cannula 3.0 32 01/15/18 19:33 101 20 95 Nasal Cannula 3.0 32 01/15/18 19:33 Nasal Cannula 3.0 32 General Appearance: no apparent distress EENT: PERRL/EOMI Neck: normal alignment Rhythm: NSR Cardiovascular: regularly irregular Respiratory/Chest: lungs clear Abdomen: normal bowel sounds Extremities: normal range of motion Neurologic: no motor/sensory deficits Intake and Output 01/15/18 01/16/18 19:00 07:00 Intake Total 882.5 ml 910.0 ml Output Total 800 ml 800 ml Balance 82.5 ml 110.0 ml Free Water 50 ml 150 ml IV Total 302.5 ml 220.0 ml Tube Feeding 480 ml 480 ml Other 50 ml 60 ml Output Urine Total 800 ml 800 ml # Bowel Movements 2 1 Laboratory Tests Test 01/16/18 00:15 01/16/18 03:30 Vancomycin Level Trough 11.0 ug/mL (5.0-12.0) White Blood Count 6.4 K/UL (4.8-10.8) Red Blood Count 4.49 M/UL (4.20-5.40) Hemoglobin 12.5 G/DL (12.0-16.0) Hematocrit 39.3 % (37.0-47.0) Mean Corpuscular Volume 88 FL (80-99) Mean Corpuscular Hemoglobin 27.8 PG (27.0-31.0) Mean Corpuscular Hemoglobin Concent 31.7 G/DL (32.0-36.0) L Red Cell Distribution Width 15.5 % (11.6-14.8) H Platelet Count 293 K/UL (150-450) Mean Platelet Volume 6.8 FL (6.5-10.1) Neutrophils (%) (Auto) 62.6 % (45.0-75.0) Lymphocytes (%) (Auto) 25.4 % (20.0-45.0) Monocytes (%) (Auto) 7.4 % (1.0-10.0) Eosinophils (%) (Auto) 3.6 % (0.0-3.0) H Basophils (%) (Auto) 1.1 % (0.0-2.0) Sodium Level 139 MMOL/L (136-145) Potassium Level 4.2 MMOL/L (3.5-5.1) Chloride Level 104 MMOL/L (98-107) Carbon Dioxide Level 28 MMOL/L (21-32) Anion Gap 7 mmol/L (5-15) Blood Urea Nitrogen 10 mg/dL (7-18) Creatinine 0.5 MG/DL (0.55-1.30) L Estimat Glomerular Filtration Rate mL/min (>60) Glucose Level 97 MG/DL (74-106) Calcium Level 9.1 MG/DL (8.5-10.1) Maxx Ureña M.D. Jan 16, 2018 16:45
--- NOTE | 2018-01-16 21:01 | Infectious Diseases Prog Note ---
Assessment/Plan Problems: (1) Aspiration pneumonia Assessment & Plan: sputum culture grew normal upper respiratory anjel , continue zosyn empiric coverage for 10 days total , with aspiration precaution and keep HOB > 30 degree all the time (2) Sacral wound Assessment & Plan: with culture grew methicillin resistant staph aureus , keep off loading, recommend local wound care and dressing change as needed . will treat with vancomycin for two weeks too (3) UTI (urinary tract infection) Assessment & Plan: already on zosyn , culture showed no growth (4) Sepsis Assessment & Plan: with staphy epidermidis , source most likely her sacral wound , will treat with vancomycin for two weeks . 2D echo was not able to evaluate the valves well , will repeat blood culture to confirm clearance, and continue vancomycin for two weeks starting from the clearance date. await repeated blood culture (5) Respiratory failure with hypoxia Assessment & Plan: improving, due to the above, continue high flow oxygen, monitor CXR , pulmonary is following Subjective ROS Limited/Unobtainable: Yes Allergies: Coded Allergies: No Known Allergies (Verified , 03/10/07) Subjective she was off BIPAP , ON high flow oxygen , awake and alert, doesn't follow verbal commands . resting in bed, comfortable, had low grade fever Objective Vital Signs Last 24 Hour Vital Signs Date Time Temp Pulse Resp B/P (MAP) Pulse Ox O2 Delivery O2 Flow Rate FiO2 01/16/18 19:18 94 Room Air 3.0 32 01/16/18 19:18 Nasal Cannula 3.0 32 01/16/18 16:00 98.3 86 24 148/82 94 Room Air 98.3 01/16/18 16:00 82 01/16/18 12:00 92 01/16/18 12:00 98.5 94 22 144/96 98 Nasal Cannula 3.0 98.5 01/16/18 09:48 91 01/16/18 08:00 100.8 91 22 143/78 92 Nasal Cannula 3.0 100.8 01/16/18 08:00 86 01/16/18 07:33 96 20 Nasal Cannula 3.0 32 01/16/18 07:02 Nasal Cannula 3.0 32 01/16/18 07:02 93 Nasal Cannula 3.0 32 01/16/18 04:00 95 01/16/18 04:00 97.9 94 19 132/78 98 Nasal Cannula 3.0 97.9 01/16/18 01:08 94 20 99 Nasal Cannula 3.0 32 01/16/18 00:58 93 20 97 Nasal Cannula 3.0 32 01/16/18 00:00 98.1 98 16 145/86 95 Nasal Cannula 3.0 98.1 01/16/18 00:00 95 Height (Feet): 5 Height (Inches): 2.00 Weight (Pounds): 96 General Appearance: WD/WN, no acute distress, cachetic HEENT: normocephalic, atraumatic, anicteric, mucous membranes moist, PERRL Respiratory/Chest: chest wall non-tender, normal breath sounds, no respiratory distress, no accessory muscle use, decreased breath sounds Cardiovascular: normal peripheral pulses, normal rate, regular rhythm, no gallop/murmur, no JVD Abdomen: normal bowel sounds, soft, non tender, no organomegaly, non distended , no mass, no scars Genitourinary: normal external genitalia Extremities: no cyanosis, no clubbing Skin: no rash, no lesions, ulcers - sacral pressure wound with granulation at the base , hip pressure wound Neurologic/Psychiatric: alert Laboratory Tests Test 01/16/18 00:15 01/16/18 03:30 Vancomycin Level Trough 11.0 ug/mL (5.0-12.0) White Blood Count 6.4 K/UL (4.8-10.8) Red Blood Count 4.49 M/UL (4.20-5.40) Hemoglobin 12.5 G/DL (12.0-16.0) Hematocrit 39.3 % (37.0-47.0) Mean Corpuscular Volume 88 FL (80-99) Mean Corpuscular Hemoglobin 27.8 PG (27.0-31.0) Mean Corpuscular Hemoglobin Concent 31.7 G/DL (32.0-36.0) L Red Cell Distribution Width 15.5 % (11.6-14.8) H Platelet Count 293 K/UL (150-450) Mean Platelet Volume 6.8 FL (6.5-10.1) Neutrophils (%) (Auto) 62.6 % (45.0-75.0) Lymphocytes (%) (Auto) 25.4 % (20.0-45.0) Monocytes (%) (Auto) 7.4 % (1.0-10.0) Eosinophils (%) (Auto) 3.6 % (0.0-3.0) H Basophils (%) (Auto) 1.1 % (0.0-2.0) Sodium Level 139 MMOL/L (136-145) Potassium Level 4.2 MMOL/L (3.5-5.1) Chloride Level 104 MMOL/L (98-107) Carbon Dioxide Level 28 MMOL/L (21-32) Anion Gap 7 mmol/L (5-15) Blood Urea Nitrogen 10 mg/dL (7-18) Creatinine 0.5 MG/DL (0.55-1.30) L Estimat Glomerular Filtration Rate mL/min (>60) Glucose Level 97 MG/DL (74-106) Calcium Level 9.1 MG/DL (8.5-10.1) Current Medications Medications (Trade) Dose Ordered Sig/[place] Route PRN Reason Start Time Stop Time Status Last Admin Dose Admin Acetaminophen (Tylenol) 650 mg Q4H PRN ORAL Mild Pain (Pain Scale 1-3) 01/11/18 04:45 02/10/18 04:44 Aspirin (ASA) 81 mg DAILY ORAL 01/11/18 09:00 02/10/18 08:59 01/16/18 09:47 Dextrose (Dextrose 50%) 25 ml STAT PRN IV Hypoglycemia 01/11/18 04:45 02/10/18 04:44 Dextrose (Dextrose 50%) 50 ml STAT PRN IV Hypoglycemia 01/11/18 04:45 02/10/18 04:44 Digoxin (Lanoxin) 0.125 mg DAILY GT 01/14/18 09:00 02/13/18 08:59 01/16/18 09:48 Docusate Sodium (Colace) 100 mg EVERY 12 HOURS GT 01/11/18 11:00 02/10/18 10:59 01/16/18 09:48 Heparin Sodium (Porcine) (Heparin 5000 units/ml) 5,000 units EVERY 8 HOURS SUBQ 01/11/18 06:00 02/10/18 05:59 01/16/18 13:52 Insulin Aspart (NovoLOG) EVERY 6 HOURS SUBQ 01/11/18 18:00 02/10/18 11:29 01/13/18 17:11 Ondansetron HCl (Zofran) 4 mg Q6H PRN IVP Nausea & Vomiting 01/11/18 04:45 02/10/18 04:44 Piperacillin Sod/ Tazobactam Sod 3.375 gm/Sodium Chloride 110 ml @ 27.5 mls/hr EVERY 8 HOURS IVPB 01/12/18 15:00 01/21/18 14:59 01/16/18 20:56 Vancomycin HCl (Vanco rx to dose) 1 ea DAILY PRN MISC Per rx protocol 01/12/18 12:45 02/11/18 12:44 Vancomycin/Sodium Chloride 250 ml @ 166.667 mls/hr Q12HR@0100,1300 IVPB 01/17/18 01:00 01/22/18 00:59 Dom Hoffman M.D. Jan 16, 2018 21:01
[2018-01-16] MEDS ORDERED: Ipratropium 0.02% Inh Soln 2.5ml UD HHN PRN (23:00)
[2018-01-16] MEDS ORDERED: Acetaminophen Soln 160mg/5ml ORAL PRN (23:00)
[2018-01-16] MEDS ORDERED: traMADol 50mg tab ORAL PRN (23:00)
[2018-01-16] MEDS: guaiFENesin 100mg/5ml Liq ud ORAL SCH (23:56)
[2018-01-17] VITALS: BP 154/93
[2018-01-17] MEDS: Levalbuterol Inh UD 1.25mg/0.5ml HHN SCH ×6 (00:40→19:34)
[2018-01-17] MEDS ORDERED: Vancomycin 750mg/NS 250ml IVPB SCH (01:00)
[2018-01-17] MEDS: Vancomycin 750mg/NS 250ml 250 ML IVPB SCH ×2 (02:18→14:01)
[2018-01-17] MEDS: guaiFENesin 100mg/5ml Liq ud ORAL SCH ×6 (02:30→23:30)
[2018-01-17 04:00] VITALS: BP 137/92
[2018-01-17] MEDS: Piperacillin/Tazobactam 3.375 GM in NS 110 ML IVPB SCH ×3 (05:06→21:15)
[2018-01-17] MEDS: NovoLOG Insulin Flexpen SUBQ SCH ×5 (06:00→23:32)
[2018-01-17] MEDS ORDERED: Acetaminophen Soln 160mg/5ml ORAL PRN (06:45)
[2018-01-17 08:00] VITALS: BP 140/76
--- NOTE | 2018-01-17 08:41 | Nephrology Progress Note ---
Assessment/Plan Assessment/Plan 1. Resp FL- Nosocomial PNA - Abx per ID. On Zosyn for 7 days total and Vanc for 14 days total - patient off BiPAP, DC tomorrow 2. PNA- Abx per ID. 3. Nutrition- on TF's 4. DM- Glucerna and ISS 5. DVT Prophylaxis with heparin sub q 6. Afib- mgmt per cardiology. Stable DC ana paula in am if patient remains stable Subjective Date patient seen: Jan 17, 2018 Time patient seen: 08:39 ROS Limited/Unobtainable: Yes Allergies: Coded Allergies: No Known Allergies (Verified , 03/10/07) Subjective Patient improved. Remains off BiPAP Objective Last 24 Hour Vital Signs Date Time Temp Pulse Resp B/P (MAP) Pulse Ox O2 Delivery O2 Flow Rate FiO2 01/17/18 08:02 Nasal Cannula 3.0 32 01/17/18 08:02 89 22 92 Nasal Cannula 3.0 01/17/18 08:01 93 Nasal Cannula 3.0 32 01/17/18 04:00 Nasal Cannula 01/17/18 04:00 100 01/17/18 04:00 Nasal Cannula 01/17/18 04:00 98.2 92 22 137/92 96 Room Air 98.2 01/17/18 00:57 102 22 96 Nasal Cannula 3.0 32 01/17/18 00:38 32 01/17/18 00:38 102 22 96 Nasal Cannula 3.0 32 01/17/18 00:00 102 01/17/18 00:00 98.1 107 26 154/93 95 Room Air 98.1 01/16/18 21:55 98.0 102 22 160/97 96 Room Air 98.0 01/16/18 21:54 99 01/16/18 20:00 98.2 96 24 142/99 94 Nasal Cannula 3.0 98.2 01/16/18 19:18 94 Room Air 3.0 32 01/16/18 19:18 Nasal Cannula 3.0 32 01/16/18 16:00 98.3 86 24 148/82 94 Room Air 98.3 01/16/18 16:00 82 01/16/18 12:00 92 01/16/18 12:00 98.5 94 22 144/96 98 Nasal Cannula 3.0 98.5 01/16/18 09:48 91 Intake and Output 01/16/18 01/17/18 19:00 07:00 Intake Total 620 ml 130 ml Output Total 1000 ml 750 ml Balance -380 ml -620 ml Free Water 200 ml 50 ml Tube Feeding 360 ml 80 ml Other 60 ml Output Urine Total 1000 ml 750 ml # Bowel Movements 3 Laboratory Tests 01/17/18 07:46: White Blood Count [Pending], Red Blood Count [Pending], Hemoglobin [Pending], Hematocrit [Pending], Mean Corpuscular Volume [Pending], Mean Corpuscular Hemoglobin [Pending], Mean Corpuscular Hemoglobin Concent [Pending], Red Cell Distribution Width [Pending], Platelet Count [Pending], Mean Platelet Volume [ Pending], Neutrophils (%) (Auto) [Pending], Lymphocytes (%) (Auto) [Pending], Monocytes (%) (Auto) [Pending], Eosinophils (%) (Auto) [Pending], Basophils (%) (Auto) [Pending], Sodium Level [Pending], Potassium Level [Pending], Chloride Level [Pending], Carbon Dioxide Level [Pending], Blood Urea Nitrogen [Pending], Creatinine [Pending], Estimat Glomerular Filtration Rate [Pending], Glucose Level [Pending], Calcium Level [Pending] Height (Feet): 5 Height (Inches): 2.00 Weight (Pounds): 96 General Appearance: no apparent distress, alert EENT: normal ENT inspection Neck: normal alignment, supple Cardiovascular: normal rate Respiratory/Chest: normal breath sounds, no respiratory distress Abdomen: normal bowel sounds, soft Edema: no edema noted Arm (L), no edema noted Arm (R), no edema noted Leg (L), no edema noted Leg (R), no edema noted Pedal (L), no edema noted Pedal (R), no edema noted Generalized Jorge Graf M.D. Jan 17, 2018 08:41
[2018-01-17 08:45] LABS: BASOPHILS % (AUTO) 1.2 % (0.0-2.0); EOSINOPHILS % (AUTO) 2.4 % (0.0-3.0); HEMATOCRIT 40.2 % (37.0-47.0); HEMOGLOBIN 13.2 G/DL (12.0-16.0); LYMPHOCYTES % (AUTO) 30.9 % (20.0-45.0); MEAN CORPUSCULAR VOLUME 87 FL (80-99); MONOCYTES % (AUTO) 7.4 % (1.0-10.0); PLATELET COUNT 306 K/UL (150-450); RED CELL DISTRIBUTION WIDTH 15.3 % (11.6-14.8); WHITE BLOOD COUNT 8.1 K/UL (4.8-10.8)
[2018-01-17] MEDS ORDERED: Heparin 5000 units/ml inj SUBQ SCH (09:00)
[2018-01-17] MEDS ORDERED: Enoxaparin 30mg Inj SUBQ SCH (09:00)
[2018-01-17] MEDS: Sennosides 8.6mg GT SCH (09:12)
[2018-01-17] MEDS: Bisacodyl EC 5mg tab ORAL SCH (09:12)
[2018-01-17] MEDS: Ascorbic Acid 500mg tab ORAL SCH (09:12)
[2018-01-17] MEDS: Aspirin Baby 81mg ORAL SCH (09:12)
[2018-01-17] MEDS: Digoxin Elixir 0.125mg GT SCH (09:13)
[2018-01-17] MEDS: Milk of Magnesia 30ml Ud ORAL SCH (09:13)
[2018-01-17 09:14] LABS: ANION GAP 8 mmol/L (5-15); BLOOD UREA NITROGEN 12 mg/dL (7-18); CALCIUM 9.1 MG/DL (8.5-10.1); CARBON DIOXIDE 28 MMOL/L (21-32); CHLORIDE 104 MMOL/L (98-107); CREATININE 0.5 MG/DL (0.55-1.30); POTASSIUM 3.8 MMOL/L (3.5-5.1); SODIUM 140 MMOL/L (136-145)
[2018-01-17] MEDS: Zinc Sulfate 220mg cap ORAL SCH (09:14)
[2018-01-17] MEDS: Docusate 100mg/10ml Liq GT SCH ×2 (09:16→21:16)
[2018-01-17] MEDS: Enoxaparin 40mg Inj SUBQ SCH (09:17)
[2018-01-17] MEDS ORDERED: NS 275ml ONE (11:04)
[2018-01-17] MEDS ORDERED: Tubing IV Secondary IV ONE ×2 (11:04→15:24)
--- NOTE | 2018-01-17 11:45 | Infectious Diseases Prog Note ---
Assessment/Plan Problems: (1) Aspiration pneumonia Assessment & Plan: sputum culture grew normal upper respiratory anejl , continue zosyn empiric coverage for 10 days total , with aspiration precaution and keep HOB > 30 degree all the time . EOT 01/21/18 (2) Sacral wound Assessment & Plan: with culture grew methicillin resistant staph aureus , keep off loading, and continue local wound care with dressing change as needed . will treat with vancomycin for two weeks too, EOT 01/21/18 (3) UTI (urinary tract infection) Assessment & Plan: already on zosyn , culture showed no growth (4) Sepsis Assessment & Plan: with staphy epidermidis , source most likely her sacral wound , will treat with vancomycin for two weeks . 2D echo was not able to evaluate the valves well , will repeat blood culture to confirm clearance, and continue vancomycin for two weeks starting from the clearance date. await repeated blood culture (5) Respiratory failure with hypoxia Assessment & Plan: improving, due to the above, continue high flow oxygen, monitor CXR , pulmonary is following Subjective ROS Limited/Unobtainable: Yes Allergies: Coded Allergies: No Known Allergies (Verified , 03/10/07) Subjective she was off nasal canula for oxygen supplement since she removed it , but awake and restless , doesn't follow verbal commands . Objective Vital Signs Last 24 Hour Vital Signs Date Time Temp Pulse Resp B/P (MAP) Pulse Ox O2 Delivery O2 Flow Rate FiO2 01/17/18 11:27 106 22 91 Nasal Cannula 3.0 01/17/18 09:13 68 01/17/18 08:12 76 20 100 Nasal Cannula 3.0 32 01/17/18 08:02 Nasal Cannula 3.0 32 01/17/18 08:02 89 22 92 Nasal Cannula 3.0 01/17/18 08:01 93 Nasal Cannula 3.0 32 01/17/18 08:00 97.3 104 22 140/76 95 Room Air 97.3 01/17/18 08:00 95 01/17/18 04:00 Nasal Cannula 01/17/18 04:00 100 01/17/18 04:00 Nasal Cannula 01/17/18 04:00 98.2 92 22 137/92 96 Room Air 98.2 01/17/18 00:57 102 22 96 Nasal Cannula 3.0 32 01/17/18 00:38 32 01/17/18 00:38 102 22 96 Nasal Cannula 3.0 32 01/17/18 00:00 102 01/17/18 00:00 98.1 107 26 154/93 95 Room Air 98.1 01/16/18 21:55 98.0 102 22 160/97 96 Room Air 98.0 01/16/18 21:54 99 01/16/18 20:00 98.2 96 24 142/99 94 Nasal Cannula 3.0 98.2 01/16/18 19:18 94 Room Air 3.0 32 01/16/18 19:18 Nasal Cannula 3.0 32 01/16/18 16:00 98.3 86 24 148/82 94 Room Air 98.3 01/16/18 16:00 82 01/16/18 12:00 92 01/16/18 12:00 98.5 94 22 144/96 98 Nasal Cannula 3.0 98.5 Height (Feet): 5 Height (Inches): 2.00 Weight (Pounds): 96 General Appearance: WD/WN, no acute distress, cachetic HEENT: normocephalic, atraumatic, anicteric, mucous membranes moist Respiratory/Chest: chest wall non-tender, lungs clear, no respiratory distress , no accessory muscle use, decreased breath sounds Cardiovascular: normal peripheral pulses, normal rate, regular rhythm, no gallop/murmur, no JVD Abdomen: normal bowel sounds, soft, non tender, no organomegaly, non distended , no mass, no scars Extremities: no cyanosis, no clubbing Skin: no rash, no lesions, ulcers Neurologic/Psychiatric: alert, unresponsiveness Lymphatic: no neck adenopathy, no groin adenopathy Microbiology Date/Time Source Procedure Growth Status 01/15/18 14:11 Blood Blood Culture - Preliminary NO GROWTH AFTER 24 HOURS Resulted 01/15/18 14:11 Blood Blood Culture - Preliminary NO GROWTH AFTER 24 HOURS Resulted Laboratory Tests Test 01/17/18 07:46 White Blood Count 8.1 K/UL (4.8-10.8) Red Blood Count 4.60 M/UL (4.20-5.40) Hemoglobin 13.2 G/DL (12.0-16.0) Hematocrit 40.2 % (37.0-47.0) Mean Corpuscular Volume 87 FL (80-99) Mean Corpuscular Hemoglobin 28.6 PG (27.0-31.0) Mean Corpuscular Hemoglobin Concent 32.8 G/DL (32.0-36.0) Red Cell Distribution Width 15.3 % (11.6-14.8) H Platelet Count 306 K/UL (150-450) Mean Platelet Volume 7.9 FL (6.5-10.1) Neutrophils (%) (Auto) 58.0 % (45.0-75.0) Lymphocytes (%) (Auto) 30.9 % (20.0-45.0) Monocytes (%) (Auto) 7.4 % (1.0-10.0) Eosinophils (%) (Auto) 2.4 % (0.0-3.0) Basophils (%) (Auto) 1.2 % (0.0-2.0) Sodium Level 140 MMOL/L (136-145) Potassium Level 3.8 MMOL/L (3.5-5.1) Chloride Level 104 MMOL/L (98-107) Carbon Dioxide Level 28 MMOL/L (21-32) Anion Gap 8 mmol/L (5-15) Blood Urea Nitrogen 12 mg/dL (7-18) Creatinine 0.5 MG/DL (0.55-1.30) L Estimat Glomerular Filtration Rate mL/min (>60) Glucose Level 103 MG/DL (74-106) Calcium Level 9.1 MG/DL (8.5-10.1) Current Medications Medications (Trade) Dose Ordered Sig/Rosetta Route PRN Reason Start Time Stop Time Status Last Admin Dose Admin Acetaminophen (Tylenol Peds) 160 mg THREE TIMES A DAY PRN ORAL Fever/Headache 01/17/18 06:45 02/15/18 22:59 Acetaminophen (Tylenol) 650 mg Q4H PRN ORAL Mild Pain (Pain Scale 1-3) 01/17/18 00:45 02/10/18 04:44 Ascorbic Acid (Vitamin C) 500 mg DAILY ORAL 01/17/18 09:00 02/16/18 08:59 01/17/18 09:12 Aspirin (ASA) 81 mg DAILY ORAL 01/17/18 09:00 02/10/18 08:59 01/17/18 09:12 Bisacodyl (Dulcolax) 10 mg DAILY ORAL 01/17/18 09:00 02/16/18 08:59 6/3/18 09:12 Dextrose (Dextrose 50%) 25 ml STAT PRN IV Hypoglycemia 01/17/18 04:45 02/10/18 04:44 Dextrose (Dextrose 50%) 50 ml STAT PRN IV Hypoglycemia 01/17/18 04:45 02/10/18 04:44 Digoxin (Lanoxin) 0.125 mg DAILY GT 01/17/18 09:00 02/13/18 08:59 01/17/18 09:13 Docusate Sodium (Colace) 100 mg EVERY 12 HOURS GT 01/17/18 09:00 02/10/18 10:59 01/17/18 09:16 Enoxaparin Sodium (Lovenox) 40 mg DAILY SUBQ 01/17/18 09:00 02/16/18 08:59 01/17/18 09:17 Guaifenesin (Robitussin) 100 mg Q4H ORAL 01/16/18 23:00 02/15/18 22:59 01/17/18 06:27 Insulin Aspart (NovoLOG) EVERY 6 HOURS SUBQ 01/17/18 00:00 02/10/18 11:29 01/17/18 11:39 Ipratropium [place] (Atrovent) 500 mcg Q6H PRN HHN Shortness of Breath 01/16/18 23:00 01/21/18 22:59 Levalbuterol HCl (Xopenex) 1.25 mg Q4H HHN 01/16/18 23:00 01/21/18 22:59 01/17/18 11:27 Magnesium Hydroxide (Mom) 30 ml DAILY ORAL 01/17/18 09:00 02/16/18 08:59 01/17/18 09:13 Ondansetron HCl (Zofran) 4 mg Q6H PRN IVP Nausea & Vomiting 01/17/18 04:45 02/10/18 04:44 Piperacillin Sod/ Tazobactam Sod 3.375 gm/Sodium Chloride 110 ml @ 27.5 mls/hr EVERY 8 HOURS IVPB 01/17/18 06:00 01/21/18 14:59 01/17/18 05:06 Sennosides (Senokot) 1 tab DAILY GT 01/17/18 09:00 02/16/18 08:59 01/17/18 09:12 Tramadol HCl (Ultram) 50 mg Q6H PRN ORAL For Pain 01/16/18 23:00 01/23/18 22:59 Vancomycin HCl (Vanco rx to dose) 1 ea DAILY PRN MISC Per rx protocol 01/17/18 09:00 02/11/18 12:44 Vancomycin/Sodium Chloride 250 ml @ 166.667 mls/hr Q12HR@0200,1400 IVPB 01/17/18 01:00 01/22/18 00:59 01/17/18 02:18 Zinc Sulfate (Zinc Sulfate) 220 mg DAILY ORAL 01/17/18 09:00 02/16/18 08:59 01/17/18 09:14 Dom Hoffman M.D. Jan 17, 2018 11:44
[2018-01-17 12:00] VITALS: BP 149/81
--- NOTE | 2018-01-17 14:02 | Pulmonology Progress Note ---
Assessment/Plan Assessment/Plan IMPRESSION: Hypoxemia, Pneumonia, pulmonary congestion. advanced age, dementia. acute on chronic encephalopathy PLAN care as is o2 as needed BIPAP off and can discontinue respiratory care noted acid base better antibiotics and care ID follow up ID clearance and dc planning impression, plan, and exam edited and reviewed in detail care discussed with RN Subjective Allergies: Coded Allergies: No Known Allergies (Verified , 03/10/07) Subjective improved dc plan noted Objective Last 24 Hour Vital Signs Date Time Temp Pulse Resp B/P (MAP) Pulse Ox O2 Delivery O2 Flow Rate FiO2 01/17/18 12:00 97.6 111 24 149/81 95 Nasal Cannula 3.0 97.6 01/17/18 12:00 104 01/17/18 11:40 79 20 99 Nasal Cannula 3.0 32 01/17/18 11:27 106 22 91 Nasal Cannula 3.0 01/17/18 09:13 68 01/17/18 08:12 76 20 100 Nasal Cannula 3.0 32 01/17/18 08:02 Nasal Cannula 3.0 32 01/17/18 08:02 89 22 92 Nasal Cannula 3.0 01/17/18 08:01 93 Nasal Cannula 3.0 32 01/17/18 08:00 95 01/17/18 08:00 97.3 104 22 140/76 95 Nasal Cannula 3.0 97.3 01/17/18 04:00 Nasal Cannula 01/17/18 04:00 100 01/17/18 04:00 Nasal Cannula 01/17/18 04:00 98.2 92 22 137/92 96 Room Air 98.2 01/17/18 00:57 102 22 96 Nasal Cannula 3.0 32 01/17/18 00:38 32 01/17/18 00:38 102 22 96 Nasal Cannula 3.0 32 01/17/18 00:00 102 01/17/18 00:00 98.1 107 26 154/93 95 Room Air 98.1 01/16/18 21:55 98.0 102 22 160/97 96 Room Air 98.0 01/16/18 21:54 99 01/16/18 20:00 98.2 96 24 142/99 94 Nasal Cannula 3.0 98.2 01/16/18 19:18 94 Room Air 3.0 32 01/16/18 19:18 Nasal Cannula 3.0 32 01/16/18 16:00 98.3 86 24 148/82 94 Room Air 98.3 01/16/18 16:00 82 Intake and Output 01/16/18 01/17/18 19:00 07:00 Intake Total 620 ml 130 ml Output Total 1000 ml 750 ml Balance -380 ml -620 ml Free Water 200 ml 50 ml Tube Feeding 360 ml 80 ml Other 60 ml Output Urine Total 1000 ml 750 ml # Bowel Movements 3 Objective GENERAL: The patient is an ill-appearing female. reduced LOC. HEENT: Negative. NECK: Supple. LUNGS: minimal rhonchi. Air entry improved CARDIAC: Normal S1, S2. Regular rate and rhythm. Soft systolic murmur at left parasternal border. ABDOMEN: Soft, nontender. GT and no distention; no HSM EXTREMITIES: No cyanosis or clubbing. SKIN: Noted and reviewed. reviewed Microbiology Date/Time Source Procedure Growth Status 01/15/18 14:11 Blood Blood Culture - Preliminary NO GROWTH AFTER 24 HOURS Resulted 01/15/18 14:11 Blood Blood Culture - Preliminary NO GROWTH AFTER 24 HOURS Resulted Laboratory Tests 01/17/18 07:46: White Blood Count 8.1, Red Blood Count 4.60, Hemoglobin 13.2, Hematocrit 40.2, Mean Corpuscular Volume 87, Mean Corpuscular Hemoglobin 28.6, Mean Corpuscular Hemoglobin Concent 32.8, Red Cell Distribution Width 15.3H, Platelet Count 306, Mean Platelet Volume 7.9, Neutrophils (%) (Auto) 58.0, Lymphocytes (%) (Auto) 30.9, Monocytes (%) (Auto) 7.4, Eosinophils (%) (Auto) 2.4, Basophils (%) (Auto ) 1.2, Sodium Level 140, Potassium Level 3.8, Chloride Level 104, Carbon Dioxide Level 28, Anion Gap 8, Blood Urea Nitrogen 12, Creatinine 0.5L, Estimat Glomerular Filtration Rate , Glucose Level 103, Calcium Level 9.1 Current Medications Medications (Trade) Dose Ordered Sig/[place] Route PRN Reason Start Time Stop Time Status Last Admin Dose Admin Acetaminophen (Tylenol Peds) 160 mg THREE TIMES A DAY PRN ORAL Fever/Headache 01/17/18 06:45 02/15/18 22:59 Acetaminophen (Tylenol) 650 mg Q4H PRN ORAL Mild Pain (Pain Scale 1-3) 01/17/18 00:45 02/10/18 04:44 Ascorbic Acid (Vitamin C) 500 mg DAILY ORAL 01/17/18 09:00 02/16/18 08:59 01/17/18 09:12 Aspirin (ASA) 81 mg DAILY ORAL 01/17/18 09:00 02/10/18 08:59 01/17/18 09:12 Bisacodyl (Dulcolax) 10 mg DAILY ORAL 01/17/18 09:00 02/16/18 08:59 01/17/18 09:12 Dextrose (Dextrose 50%) 25 ml STAT PRN IV Hypoglycemia 01/17/18 04:45 02/10/18 04:44 Dextrose (Dextrose 50%) 50 ml STAT PRN IV Hypoglycemia 01/17/18 04:45 02/10/18 04:44 Digoxin (Lanoxin) 0.125 mg DAILY GT 01/17/18 09:00 02/13/18 08:59 01/17/18 09:13 Docusate Sodium (Colace) 100 mg EVERY 12 HOURS GT 01/17/18 09:00 02/10/18 10:59 01/17/18 09:16 Enoxaparin Sodium (Lovenox) 40 mg DAILY SUBQ 01/17/18 09:00 02/16/18 08:59 01/17/18 09:17 Guaifenesin (Robitussin) 100 mg Q4H ORAL 01/16/18 23:00 02/15/18 22:59 01/17/18 12:15 Insulin Aspart (NovoLOG) EVERY 6 HOURS SUBQ 01/17/18 00:00 02/10/18 11:29 01/17/18 11:39 Ipratropium [place] (Atrovent) 500 mcg Q6H PRN HHN Shortness of Breath 01/16/18 23:00 01/21/18 22:59 Levalbuterol HCl (Xopenex) 1.25 mg Q4H HHN 01/16/18 23:00 01/21/18 22:59 01/17/18 11:27 Magnesium Hydroxide (Mom) 30 ml DAILY ORAL 01/17/18 09:00 02/16/18 08:59 01/17/18 09:13 Ondansetron HCl (Zofran) 4 mg Q6H PRN IVP Nausea & Vomiting 01/17/18 04:45 02/10/18 04:44 Piperacillin Sod/ Tazobactam Sod 3.375 gm/Sodium Chloride 110 ml @ 27.5 mls/hr EVERY 8 HOURS IVPB 01/17/18 06:00 01/21/18 14:59 01/17/18 05:06 Sennosides (Senokot) 1 tab DAILY GT 01/17/18 09:00 02/16/18 08:59 01/17/18 09:12 Tramadol HCl (Ultram) 50 mg Q6H PRN ORAL For Pain 01/16/18 23:00 01/23/18 22:59 Vancomycin HCl (Vanco rx to dose) 1 ea DAILY PRN MISC Per rx protocol 01/17/18 09:00 02/11/18 12:44 Vancomycin/Sodium Chloride 250 ml @ 166.667 mls/hr Q12HR@0200,1400 IVPB 01/17/18 01:00 01/22/18 00:59 01/17/18 02:18 Zinc Sulfate (Zinc Sulfate) 220 mg DAILY ORAL 01/17/18 09:00 02/16/18 08:59 01/17/18 09:14 Chase Coronado MD Jan 17, 2018 14:02
[2018-01-17 16:00] VITALS: BP 131/78
--- NOTE | 2018-01-17 19:06 | Cardiology Progress Note ---
Assessment/Plan Status: stable, progressing Assessment/Plan Assessment/Plan 1. Paroxysmal atrial fibrillation with rapid ventricular response. Controlled on Dig through G-tube. On Subcutaneous heparin 5000 t.i.d. Echocardiogram also showed normal left ventricular systolic function. 2. Hypertension. Systolic blood pressure is borderline in the 90s. 3. Fever and Aspiration pneumonia and sepsis, on broad-spectrum antibiotic with vancomycin and Zosyn. Having blood cultures again - follow 4. Dysphagia, status post PEG placement. 5. Hypernatremia. Resolved 6. Sacral decubitus Subjective Cardiovascular: Reports: no symptoms Respiratory: Reports: wheezing Genitourinary: Reports: no symptoms Subjective No acute events, interval events notes, provider notes reviewed Objective Last 24 Hour Vital Signs Date Time Temp Pulse Resp B/P (MAP) Pulse Ox O2 Delivery O2 Flow Rate FiO2 01/17/18 16:01 89 22 96 Nasal Cannula 3.0 32 01/17/18 16:00 97 01/17/18 16:00 97.2 95 22 131/78 93 Nasal Cannula 3.0 97.2 01/17/18 15:51 91 22 93 Nasal Cannula 3.0 01/17/18 12:00 97.6 111 24 149/81 95 Nasal Cannula 3.0 97.6 01/17/18 12:00 104 01/17/18 11:40 79 20 99 Nasal Cannula 3.0 32 01/17/18 11:27 106 22 91 Nasal Cannula 3.0 01/17/18 09:13 68 01/17/18 08:12 76 20 100 Nasal Cannula 3.0 32 01/17/18 08:02 Nasal Cannula 3.0 32 01/17/18 08:02 89 22 92 Nasal Cannula 3.0 01/17/18 08:01 93 Nasal Cannula 3.0 32 01/17/18 08:00 95 01/17/18 08:00 97.3 104 22 140/76 95 Nasal Cannula 3.0 97.3 01/17/18 04:00 Nasal Cannula 01/17/18 04:00 100 01/17/18 04:00 Nasal Cannula 01/17/18 04:00 98.2 92 22 137/92 96 Room Air 98.2 01/17/18 00:57 102 22 96 Nasal Cannula 3.0 32 01/17/18 00:38 32 01/17/18 00:38 102 22 96 Nasal Cannula 3.0 32 01/17/18 00:00 102 01/17/18 00:00 98.1 107 26 154/93 95 Room Air 98.1 01/16/18 21:55 98.0 102 22 160/97 96 Room Air 98.0 01/16/18 21:54 99 01/16/18 20:00 98.2 96 24 142/99 94 Nasal Cannula 3.0 98.2 01/16/18 19:18 94 Room Air 3.0 32 01/16/18 19:18 Nasal Cannula 3.0 32 General Appearance: no apparent distress EENT: PERRL/EOMI Neck: non-tender Rhythm: NSR Cardiovascular: normal peripheral pulses Respiratory/Chest: chest wall non-tender Abdomen: non tender Extremities: normal range of motion Neurologic: babbitter II-XII grossly normal Intake and Output 01/16/18 01/17/18 19:00 07:00 Intake Total 620 ml 130 ml Output Total 1000 ml 750 ml Balance -380 ml -620 ml Free Water 200 ml 50 ml Tube Feeding 360 ml 80 ml Other 60 ml Output Urine Total 1000 ml 750 ml # Bowel Movements 3 Laboratory Tests Test 01/17/18 07:46 White Blood Count 8.1 K/UL (4.8-10.8) Red Blood Count 4.60 M/UL (4.20-5.40) Hemoglobin 13.2 G/DL (12.0-16.0) Hematocrit 40.2 % (37.0-47.0) Mean Corpuscular Volume 87 FL (80-99) Mean Corpuscular Hemoglobin 28.6 PG (27.0-31.0) Mean Corpuscular Hemoglobin Concent 32.8 G/DL (32.0-36.0) Red Cell Distribution Width 15.3 % (11.6-14.8) H Platelet Count 306 K/UL (150-450) Mean Platelet Volume 7.9 FL (6.5-10.1) Neutrophils (%) (Auto) 58.0 % (45.0-75.0) Lymphocytes (%) (Auto) 30.9 % (20.0-45.0) Monocytes (%) (Auto) 7.4 % (1.0-10.0) Eosinophils (%) (Auto) 2.4 % (0.0-3.0) Basophils (%) (Auto) 1.2 % (0.0-2.0) Sodium Level 140 MMOL/L (136-145) Potassium Level 3.8 MMOL/L (3.5-5.1) Chloride Level 104 MMOL/L (98-107) Carbon Dioxide Level 28 MMOL/L (21-32) Anion Gap 8 mmol/L (5-15) Blood Urea Nitrogen 12 mg/dL (7-18) Creatinine 0.5 MG/DL (0.55-1.30) L Estimat Glomerular Filtration Rate mL/min (>60) Glucose Level 103 MG/DL (74-106) Calcium Level 9.1 MG/DL (8.5-10.1) Microbiology Date/Time Source Procedure Growth Status 01/15/18 14:11 Blood Blood Culture - Preliminary NO GROWTH AFTER 24 HOURS Resulted 01/15/18 14:11 Blood Blood Culture - Preliminary NO GROWTH AFTER 24 HOURS Resulted Maxx Ureña M.D. Jan 17, 2018 19:06
[2018-01-17 20:00] VITALS: BP 155/79
[2018-01-18] VITALS: BP 113/66
[2018-01-18] MEDS: Levalbuterol Inh UD 1.25mg/0.5ml HHN SCH ×4 (00:30→10:38)
[2018-01-18] MEDS: Vancomycin 750mg/NS 250ml 250 ML IVPB SCH (01:32)
[2018-01-18] MEDS: guaiFENesin 100mg/5ml Liq ud ORAL SCH ×3 (02:32→11:15)
[2018-01-18 04:00] VITALS: BP 133/69
[2018-01-18] MEDS: Piperacillin/Tazobactam 3.375 GM in NS 110 ML IVPB SCH (05:18)
[2018-01-18] MEDS: NovoLOG Insulin Flexpen SUBQ SCH ×2 (05:24→12:00)
[2018-01-18 07:29] LABS: ANION GAP 7 mmol/L (5-15); BLOOD UREA NITROGEN 14 mg/dL (7-18); CALCIUM 8.9 MG/DL (8.5-10.1); CARBON DIOXIDE 28 MMOL/L (21-32); CHLORIDE 106 MMOL/L (98-107); CREATININE 0.5 MG/DL (0.55-1.30); POTASSIUM 3.5 MMOL/L (3.5-5.1); SODIUM 141 MMOL/L (136-145)
[2018-01-18 08:00] VITALS: BP 138/73
--- NOTE | 2018-01-18 08:04 | Pulmonology Progress Note ---
Assessment/Plan Assessment/Plan IMPRESSION: Hypoxemia, Pneumonia, pulmonary congestion. advanced age, dementia. acute on chronic encephalopathy PLAN care as is o2 as needed respiratory care noted pulmonary reviewed antibiotics and care ID follow up proceed with dc planning impression, plan, and exam edited and reviewed in detail care discussed with RN Subjective Allergies: Coded Allergies: No Known Allergies (Verified , 03/10/07) Subjective improved care noted Objective Last 24 Hour Vital Signs Date Time Temp Pulse Resp B/P (MAP) Pulse Ox O2 Delivery O2 Flow Rate FiO2 01/18/18 07:26 Nasal Cannula 3.0 32 01/18/18 07:26 96 Nasal Cannula 3.0 32 01/18/18 07:21 84 18 99 Nasal Cannula 3.0 32 01/18/18 07:15 83 20 93 Nasal Cannula 3.0 32 01/18/18 04:00 85 01/18/18 04:00 98.0 83 20 133/69 95 Nasal Cannula 3.0 98.0 01/18/18 03:54 91 20 94 Nasal Cannula 3.0 32 01/18/18 03:52 88 20 93 Nasal Cannula 3.0 32 01/18/18 00:00 97.3 92 22 113/66 95 Nasal Cannula 3.0 97.3 01/18/18 00:00 96 01/17/18 23:40 95 20 95 Nasal Cannula 3.0 32 01/17/18 23:30 90 20 92 Nasal Cannula 3.0 32 01/17/18 20:00 88 01/17/18 20:00 98.5 95 21 155/79 97 Nasal Cannula 3.0 98.5 01/17/18 19:38 98 20 94 Nasal Cannula 3.0 32 01/17/18 19:37 Nasal Cannula 3.0 32 01/17/18 19:37 95 20 92 Nasal Cannula 3.0 32 01/17/18 19:36 92 Nasal Cannula 3.0 32 01/17/18 16:01 89 22 96 Nasal Cannula 3.0 32 01/17/18 16:00 97 01/17/18 16:00 97.2 95 22 131/78 93 Nasal Cannula 3.0 97.2 01/17/18 15:51 91 22 93 Nasal Cannula 3.0 01/17/18 12:00 97.6 111 24 149/81 95 Nasal Cannula 3.0 97.6 01/17/18 12:00 104 01/17/18 11:40 79 20 99 Nasal Cannula 3.0 32 01/17/18 11:27 106 22 91 Nasal Cannula 3.0 01/17/18 09:13 68 01/17/18 08:12 76 20 100 Nasal Cannula 3.0 32 Intake and Output 01/17/18 01/18/18 19:00 07:00 Intake Total 440 ml Output Total 100 ml Balance -100 ml 440 ml Tube Feeding 440 ml Output Urine Total 100 ml # Bowel Movements 3 2 Objective GENERAL: The patient is an ill-appearing female. reduced LOC. on NC HEENT: Negative. NECK: Supple. LUNGS: minimal rhonchi. Air entry improved CARDIAC: Normal S1, S2. Regular rate and rhythm. Soft systolic murmur at left parasternal border. ABDOMEN: Soft, nontender. GT and no distention; no HSM EXTREMITIES: No cyanosis or clubbing. SKIN: Noted and reviewed. reviewed Microbiology Date/Time Source Procedure Growth Status 01/15/18 14:11 Blood Blood Culture - Preliminary NO GROWTH AFTER 48 HOURS Resulted 01/15/18 14:11 Blood Blood Culture - Preliminary NO GROWTH AFTER 48 HOURS Resulted Laboratory Tests 01/18/18 06:25: Sodium Level 141, Potassium Level 3.5, Chloride Level 106, Carbon Dioxide Level 28, Anion Gap 7, Blood Urea Nitrogen 14, Creatinine 0.5L, Estimat Glomerular Filtration Rate , Glucose Level 110H, Calcium Level 8.9 Current Medications Medications (Trade) Dose Ordered Sig/Rosetta Route PRN Reason Start Time Stop Time Status Last Admin Dose Admin Acetaminophen (Tylenol Peds) 160 mg THREE TIMES A DAY PRN ORAL Fever/Headache 01/17/18 06:45 02/15/18 22:59 Acetaminophen (Tylenol) 650 mg Q4H PRN ORAL Mild Pain (Pain Scale 1-3) 01/17/18 00:45 02/10/18 04:44 Ascorbic Acid (Vitamin C) 500 mg DAILY ORAL 01/17/18 09:00 02/16/18 08:59 01/17/18 09:12 Aspirin (ASA) 81 mg DAILY ORAL 01/17/18 09:00 02/10/18 08:59 01/17/18 09:12 Bisacodyl (Dulcolax) 10 mg DAILY ORAL 01/17/18 09:00 02/16/18 08:59 01/17/18 09:12 Dextrose (Dextrose 50%) 25 ml STAT PRN IV Hypoglycemia 01/17/18 04:45 02/10/18 04:44 Dextrose (Dextrose 50%) 50 ml STAT PRN IV Hypoglycemia 01/17/18 04:45 02/10/18 04:44 Digoxin (Lanoxin) 0.125 mg DAILY GT 01/17/18 09:00 02/13/18 08:59 01/17/18 09:13 Docusate Sodium (Colace) 100 mg EVERY 12 HOURS GT 01/17/18 09:00 02/10/18 10:59 01/17/18 21:16 Enoxaparin Sodium (Lovenox) 40 mg DAILY SUBQ 01/17/18 09:00 02/16/18 08:59 01/17/18 09:17 Guaifenesin (Robitussin) 100 mg Q4H ORAL 01/16/18 23:00 02/15/18 22:59 01/18/18 06:57 Insulin Aspart (NovoLOG) EVERY 6 HOURS SUBQ 01/17/18 00:00 02/10/18 11:29 01/17/18 11:39 Ipratropium Dr[place] (Atrovent) 500 mcg Q6H PRN HHN Shortness of Breath 01/16/18 23:00 01/21/18 22:59 Levalbuterol HCl (Xopenex) 1.25 mg Q4H HHN 01/16/18 23:00 01/21/18 22:59 01/18/18 07:22 Magnesium Hydroxide (Mom) 30 ml DAILY ORAL 01/17/18 09:00 02/16/18 08:59 01/17/18 09:13 Ondansetron HCl (Zofran) 4 mg Q6H PRN IVP Nausea & Vomiting 01/17/18 04:45 02/10/18 04:44 Piperacillin Sod/ Tazobactam Sod 3.375 gm/Sodium Chloride 110 ml @ 27.5 mls/hr EVERY 8 HOURS IVPB 01/17/18 06:00 01/21/18 14:59 01/18/18 05:18 Sennosides (Senokot) 1 tab DAILY GT 01/17/18 09:00 02/16/18 08:59 01/17/18 09:12 Tramadol HCl (Ultram) 50 mg Q6H PRN ORAL For Pain 01/16/18 23:00 01/23/18 22:59 Vancomycin HCl (Vanco rx to dose) 1 ea DAILY PRN MISC Per rx protocol 01/17/18 09:00 02/11/18 12:44 Vancomycin/Sodium Chloride 250 ml @ 166.667 mls/hr Q12HR@0200,1400 IVPB 01/17/18 01:00 01/22/18 00:59 01/18/18 01:32 Zinc Sulfate (Zinc Sulfate) 220 mg DAILY ORAL 01/17/18 09:00 02/16/18 08:59 01/17/18 09:14 Chase Coronado MD Jan 18, 2018 08:04
--- NOTE | 2018-01-18 08:41 | Nephrology Progress Note ---
Assessment/Plan Assessment/Plan 1. Resp FL- Nosocomial PNA - Abx per ID. On Zosyn for 7 days total and Vanc for 14 days total. DC today. Patient stable - patient off BiPAP and stable 2. PNA- Abx per ID. 3. Nutrition- on TF's 4. DM- Glucerna and ISS 5. DVT Prophylaxis with heparin sub q 6. Afib- mgmt per cardiology. Stable on dig. DC today Subjective Date patient seen: Jan 18, 2018 Time patient seen: 08:39 ROS Limited/Unobtainable: Yes Allergies: Coded Allergies: No Known Allergies (Verified , 03/10/07) Subjective Patient improved. Remains off BiPAP and set for DC Objective Last 24 Hour Vital Signs Date Time Temp Pulse Resp B/P (MAP) Pulse Ox O2 Delivery O2 Flow Rate FiO2 01/18/18 07:26 Nasal Cannula 3.0 32 01/18/18 07:26 96 Nasal Cannula 3.0 32 01/18/18 07:21 84 18 99 Nasal Cannula 3.0 32 01/18/18 07:15 83 20 93 Nasal Cannula 3.0 32 01/18/18 04:00 85 01/18/18 04:00 98.0 83 20 133/69 95 Nasal Cannula 3.0 98.0 01/18/18 03:54 91 20 94 Nasal Cannula 3.0 32 01/18/18 03:52 88 20 93 Nasal Cannula 3.0 32 01/18/18 00:00 97.3 92 22 113/66 95 Nasal Cannula 3.0 97.3 01/18/18 00:00 96 01/17/18 23:40 95 20 95 Nasal Cannula 3.0 32 01/17/18 23:30 90 20 92 Nasal Cannula 3.0 32 01/17/18 20:00 88 01/17/18 20:00 98.5 95 21 155/79 97 Nasal Cannula 3.0 98.5 01/17/18 19:38 98 20 94 Nasal Cannula 3.0 32 01/17/18 19:37 Nasal Cannula 3.0 32 01/17/18 19:37 95 20 92 Nasal Cannula 3.0 32 01/17/18 19:36 92 Nasal Cannula 3.0 32 01/17/18 16:01 89 22 96 Nasal Cannula 3.0 32 01/17/18 16:00 97 01/17/18 16:00 97.2 95 22 131/78 93 Nasal Cannula 3.0 97.2 01/17/18 15:51 91 22 93 Nasal Cannula 3.0 01/17/18 12:00 97.6 111 24 149/81 95 Nasal Cannula 3.0 97.6 01/17/18 12:00 104 01/17/18 11:40 79 20 99 Nasal Cannula 3.0 32 01/17/18 11:27 106 22 91 Nasal Cannula 3.0 01/17/18 09:13 68 Intake and Output 01/17/18 01/18/18 19:00 07:00 Intake Total 440 ml Output Total 100 ml Balance -100 ml 440 ml Tube Feeding 440 ml Output Urine Total 100 ml # Bowel Movements 3 2 Laboratory Tests 01/18/18 06:25: Sodium Level 141, Potassium Level 3.5, Chloride Level 106, Carbon Dioxide Level 28, Anion Gap 7, Blood Urea Nitrogen 14, Creatinine 0.5L, Estimat Glomerular Filtration Rate , Glucose Level 110H, Calcium Level 8.9 Height (Feet): 5 Height (Inches): 2.00 Weight (Pounds): 96 General Appearance: no apparent distress EENT: normal ENT inspection Neck: normal alignment Cardiovascular: normal rate, regular rhythm Respiratory/Chest: normal breath sounds Abdomen: non tender, soft Edema: no edema noted Arm (L), no edema noted Arm (R), no edema noted Leg (L), no edema noted Leg (R), no edema noted Pedal (L), no edema noted Pedal (R), no edema noted Generalized Jorge Graf M.D. Jan 18, 2018 08:41
[2018-01-18] MEDS ORDERED: DIGOXIN0.125 MG/2 GT (08:44)
--- NOTE | 2018-01-18 08:46 | Discharge Instructions ---
Discharge Instructions Discharge Instructions Services at Discharge: other - SNF Resume Normal Activity?: Yes Activity: other Pneumonia Vaccine: vaccine not indicated Influenza Vaccine (May to Oct): vaccine not indicated Follow Up Orders 1. Patient to complete Zosyn and Vanc as Rxed by ID. On Dig per cardiology for AFinb and to be evaluated at SNF by in house physician For Congestive Heart Failure Reminder Report to your physician any weight gain of 5 pounds or more in one week. Jorge Graf M.D. Jan 18, 2018 08:46
[2018-01-18] MEDS: Bisacodyl EC 5mg tab ORAL SCH ×2 (09:00→09:13)
[2018-01-18] MEDS: Docusate 100mg/10ml Liq GT SCH (09:12)
[2018-01-18] MEDS: Milk of Magnesia 30ml Ud ORAL SCH (09:12)
[2018-01-18] MEDS: Ascorbic Acid 500mg tab ORAL SCH (09:13)
[2018-01-18] MEDS: Aspirin Baby 81mg ORAL SCH (09:13)
[2018-01-18] MEDS: Sennosides 8.6mg GT SCH (09:13)
[2018-01-18] MEDS: Zinc Sulfate 220mg cap ORAL SCH (09:13)
[2018-01-18] MEDS: Digoxin Elixir 0.125mg GT SCH (09:13)
[2018-01-18] MEDS: Enoxaparin 40mg Inj SUBQ SCH (09:14)
[2018-01-18 12:00] VITALS: BP 125/91
[2018-01-18] MEDS ORDERED: ZOSYN 3.373.375 GM/1 IVPB ×3 (12:19→12:22)
[2018-01-18] MEDS ORDERED: VANCOCIN250 MG IVPB (12:25)
--- NOTE | 2018-01-18 13:17 | Infectious Diseases Prog Note ---
Assessment/Plan Problems: (1) Aspiration pneumonia Assessment & Plan: sputum culture grew normal upper respiratory anjel, continue zosyn empiric coverage for 10 days total , with aspiration precaution and keep HOB > 30 degree all the time . EOT 01/21/18 (2) Sacral wound Assessment & Plan: with culture grew methicillin resistant staph aureus , keep off loading, and continue local wound care with dressing change as needed . will treat with vancomycin for two weeks too, EOT 01/21/18 (3) UTI (urinary tract infection) Assessment & Plan: already on zosyn , culture showed no growth (4) Sepsis Assessment & Plan: with staphy epidermidis , source most likely her sacral wound , will treat with vancomycin for two weeks . 2D echo was not able to evaluate the valves well , will repeat blood culture to confirm clearance, and continue vancomycin for two weeks starting from the clearance date. await repeated blood culture (5) Respiratory failure with hypoxia Assessment & Plan: improving, due to the above, continue high flow oxygen, monitor CXR , pulmonary is following Subjective ROS Limited/Unobtainable: Yes Allergies: Coded Allergies: No Known Allergies (Verified , 03/10/07) Subjective she was comfortable, doing ok on nasal canula , awake and doesn't follow verbal commands . Objective Vital Signs Last 24 Hour Vital Signs Date Time Temp Pulse Resp B/P (MAP) Pulse Ox O2 Delivery O2 Flow Rate FiO2 01/18/18 12:00 98.1 95 18 125/91 95 98.1 01/18/18 10:35 94 18 99 Nasal Cannula 3.0 32 01/18/18 10:30 92 20 96 Nasal Cannula 3.0 32 01/18/18 09:13 94 01/18/18 08:00 97.3 94 18 138/73 99 Nasal Cannula 3.0 97.3 01/18/18 08:00 85 01/18/18 07:26 Nasal Cannula 3.0 32 01/18/18 07:26 96 Nasal Cannula 3.0 32 01/18/18 07:21 84 18 99 Nasal Cannula 3.0 32 01/18/18 07:15 83 20 93 Nasal Cannula 3.0 32 01/18/18 04:00 85 01/18/18 04:00 98.0 83 20 133/69 95 Nasal Cannula 3.0 98.0 01/18/18 03:54 91 20 94 Nasal Cannula 3.0 32 01/18/18 03:52 88 20 93 Nasal Cannula 3.0 32 01/18/18 00:00 97.3 92 22 113/66 95 Nasal Cannula 3.0 97.3 01/18/18 00:00 96 01/17/18 23:40 95 20 95 Nasal Cannula 3.0 32 01/17/18 23:30 90 20 92 Nasal Cannula 3.0 32 01/17/18 20:00 88 01/17/18 20:00 98.5 95 21 155/79 97 Nasal Cannula 3.0 98.5 01/17/18 19:38 98 20 94 Nasal Cannula 3.0 32 01/17/18 19:37 Nasal Cannula 3.0 32 01/17/18 19:37 95 20 92 Nasal Cannula 3.0 32 01/17/18 19:36 92 Nasal Cannula 3.0 32 01/17/18 16:01 89 22 96 Nasal Cannula 3.0 32 01/17/18 16:00 97 01/17/18 16:00 97.2 95 22 131/78 93 Nasal Cannula 3.0 97.2 01/17/18 15:51 91 22 93 Nasal Cannula 3.0 Height (Feet): 5 Height (Inches): 2.00 Weight (Pounds): 96 General Appearance: WD/WN, no acute distress, cachetic HEENT: normocephalic, atraumatic, anicteric, mucous membranes moist Respiratory/Chest: chest wall non-tender, lungs clear, normal breath sounds, no respiratory distress, no accessory muscle use Cardiovascular: normal peripheral pulses, normal rate, regular rhythm, no gallop/murmur, no JVD Abdomen: normal bowel sounds, soft, non tender, no organomegaly, non distended , no mass, no scars Extremities: no cyanosis, no clubbing Skin: no rash, no lesions, ulcers Neurologic/Psychiatric: alert Lymphatic: no neck adenopathy, no groin adenopathy Musculoskeletal: normal muscle bulk, no effusion Microbiology Date/Time Source Procedure Growth Status 01/15/18 14:11 Blood Blood Culture - Preliminary NO GROWTH AFTER 48 HOURS Resulted 01/15/18 14:11 Blood Blood Culture - Preliminary NO GROWTH AFTER 48 HOURS Resulted Laboratory Tests Test 01/18/18 06:25 Sodium Level 141 MMOL/L (136-145) Potassium Level 3.5 MMOL/L (3.5-5.1) Chloride Level 106 MMOL/L (98-107) Carbon Dioxide Level 28 MMOL/L (21-32) Anion Gap 7 mmol/L (5-15) Blood Urea Nitrogen 14 mg/dL (7-18) Creatinine 0.5 MG/DL (0.55-1.30) L Estimat Glomerular Filtration Rate mL/min (>60) Glucose Level 110 MG/DL (74-106) H Calcium Level 8.9 MG/DL (8.5-10.1) Current Medications Medications (Trade) Dose Ordered Sig/Rosetta Route PRN Reason Start Time Stop Time Status Last Admin Dose Admin Acetaminophen (Tylenol Peds) 160 mg THREE TIMES A DAY PRN ORAL Fever/Headache 01/17/18 06:45 02/15/18 22:59 Acetaminophen (Tylenol) 650 mg Q4H PRN ORAL Mild Pain (Pain Scale 1-3) 01/17/18 00:45 02/10/18 04:44 Ascorbic Acid (Vitamin C) 500 mg DAILY ORAL 01/17/18 09:00 02/16/18 08:59 01/18/18 09:13 Aspirin (ASA) 81 mg DAILY ORAL 01/17/18 09:00 02/10/18 08:59 01/18/18 09:13 Bisacodyl (Dulcolax) 10 mg DAILY ORAL 01/17/18 09:00 02/16/18 08:59 01/17/18 09:12 Dextrose (Dextrose 50%) 25 ml STAT PRN IV Hypoglycemia 01/17/18 04:45 02/10/18 04:44 Dextrose (Dextrose 50%) 50 ml STAT PRN IV Hypoglycemia 01/17/18 04:45 02/10/18 04:44 Digoxin (Lanoxin) 0.125 mg DAILY GT 01/17/18 09:00 02/13/18 08:59 01/18/18 09:13 Docusate Sodium (Colace) 100 mg EVERY 12 HOURS GT 01/17/18 09:00 02/10/18 10:59 01/18/18 09:12 Enoxaparin Sodium (Lovenox) 40 mg DAILY SUBQ 01/17/18 09:00 02/16/18 08:59 01/18/18 09:14 Guaifenesin (Robitussin) 100 mg Q4H ORAL 01/16/18 23:00 02/15/18 22:59 01/18/18 11:15 Insulin Aspart (NovoLOG) EVERY 6 HOURS SUBQ 01/17/18 00:00 02/10/18 11:29 01/17/18 11:39 Ipratropium Finley (Atrovent) 500 mcg Q6H PRN HHN Shortness of Breath 01/16/18 23:00 01/21/18 22:59 Levalbuterol HCl (Xopenex) 1.25 mg Q4H HHN 01/16/18 23:00 01/21/18 22:59 01/18/18 10:38 Magnesium Hydroxide (Mom) 30 ml DAILY ORAL 01/17/18 09:00 02/16/18 08:59 01/18/18 09:12 Ondansetron HCl (Zofran) 4 mg Q6H PRN IVP Nausea & Vomiting 01/17/18 04:45 02/10/18 04:44 Piperacillin Sod/ Tazobactam Sod 3.375 gm/Sodium Chloride 110 ml @ 27.5 mls/hr EVERY 8 HOURS IVPB 01/17/18 06:00 01/21/18 14:59 01/18/18 05:18 Sennosides (Senokot) 1 tab DAILY GT 01/17/18 09:00 02/16/18 08:59 01/18/18 09:13 Tramadol HCl (Ultram) 50 mg Q6H PRN ORAL For Pain 01/16/18 23:00 01/23/18 22:59 Vancomycin HCl (Vanco rx to dose) 1 ea DAILY PRN MISC Per rx protocol 01/17/18 09:00 02/11/18 12:44 Vancomycin/Sodium Chloride 250 ml @ 166.667 mls/hr Q12HR@0200,1400 IVPB 01/17/18 01:00 01/22/18 00:59 01/18/18 01:32 Zinc Sulfate (Zinc Sulfate) 220 mg DAILY ORAL 01/17/18 09:00 02/16/18 08:59 01/18/18 09:13 Dom Hoffman M.D. Jan 18, 2018 13:17
[2018-01-18] MEDS ORDERED: NS 275ml ONE (13:28)
[2018-01-18] MEDS ORDERED: Tubing IV Secondary IV ONE (13:28)
--- NOTE | 2018-01-18 14:08 | Cardiac Electrophysiology PN ---
Assessment/Plan Assessment/Plan 1. Paroxysmal atrial fibrillation with rapid ventricular response. Controlled on Dig through G-tube. On Subcutaneous heparin 5000 t.i.d. Echocardiogram also showed normal left ventricular systolic function. 2. Hypertension. Stable 3. Fever and Aspiration pneumonia and sepsis, Abx per Dr Hoffman 4. Dysphagia, status post PEG placement. 5. Hypernatremia. Resolved per Dr. Lara. 6. Sacral decubitus DC planning today DW Dr Graf an Dr Hoffman Subjective Subjective In SR. DC planning in progress. Objective Last 24 Hour Vital Signs Date Time Temp Pulse Resp B/P (MAP) Pulse Ox O2 Delivery O2 Flow Rate FiO2 01/18/18 12:00 98.1 95 18 125/91 95 98.1 01/18/18 10:35 94 18 99 Nasal Cannula 3.0 32 01/18/18 10:30 92 20 96 Nasal Cannula 3.0 32 01/18/18 09:13 94 01/18/18 08:00 97.3 94 18 138/73 99 Nasal Cannula 3.0 97.3 01/18/18 08:00 85 01/18/18 07:26 Nasal Cannula 3.0 32 01/18/18 07:26 96 Nasal Cannula 3.0 32 01/18/18 07:21 84 18 99 Nasal Cannula 3.0 32 01/18/18 07:15 83 20 93 Nasal Cannula 3.0 32 01/18/18 04:00 85 01/18/18 04:00 98.0 83 20 133/69 95 Nasal Cannula 3.0 98.0 01/18/18 03:54 91 20 94 Nasal Cannula 3.0 32 01/18/18 03:52 88 20 93 Nasal Cannula 3.0 32 01/18/18 00:00 97.3 92 22 113/66 95 Nasal Cannula 3.0 97.3 01/18/18 00:00 96 01/17/18 23:40 95 20 95 Nasal Cannula 3.0 32 01/17/18 23:30 90 20 92 Nasal Cannula 3.0 32 01/17/18 20:00 88 01/17/18 20:00 98.5 95 21 155/79 97 Nasal Cannula 3.0 98.5 01/17/18 19:38 98 20 94 Nasal Cannula 3.0 32 01/17/18 19:37 Nasal Cannula 3.0 32 01/17/18 19:37 95 20 92 Nasal Cannula 3.0 32 01/17/18 19:36 92 Nasal Cannula 3.0 32 01/17/18 16:01 89 22 96 Nasal Cannula 3.0 32 01/17/18 16:00 97 01/17/18 16:00 97.2 95 22 131/78 93 Nasal Cannula 3.0 97.2 01/17/18 15:51 91 22 93 Nasal Cannula 3.0 Intake and Output 01/17/18 01/18/18 19:00 07:00 Intake Total 440 ml Output Total 100 ml Balance -100 ml 440 ml Tube Feeding 440 ml Output Urine Total 100 ml # Bowel Movements 3 2 Laboratory Tests Test 01/18/18 06:25 Sodium Level 141 MMOL/L (136-145) Potassium Level 3.5 MMOL/L (3.5-5.1) Chloride Level 106 MMOL/L (98-107) Carbon Dioxide Level 28 MMOL/L (21-32) Anion Gap 7 mmol/L (5-15) Blood Urea Nitrogen 14 mg/dL (7-18) Creatinine 0.5 MG/DL (0.55-1.30) L Estimat Glomerular Filtration Rate mL/min (>60) Glucose Level 110 MG/DL (74-106) H Calcium Level 8.9 MG/DL (8.5-10.1) Microbiology Date/Time Source Procedure Growth Status 01/15/18 14:11 Blood Blood Culture - Preliminary NO GROWTH AFTER 48 HOURS Resulted 01/15/18 14:11 Blood Blood Culture - Preliminary NO GROWTH AFTER 48 HOURS Resulted Objective HEAD AND NECK: No JVD. LUNGS: Coarse rhonchi. CARDIOVASCULAR: Irregular and tachycardic S1, S2 ABDOMEN: Status post G-tube. EXTREMITIES: No pitting edema. Her upper extremities are contracted. Emmanuel Edgar MD Jan 18, 2018 14:08
--- NOTE | 2018-01-18 22:15 | Discharge Summary ---
DATE OF ADMISSION: 01/11/2018 DATE OF DISCHARGE: 01/18/2018 CONSULTING PHYSICIANS: 1. Dr. Coronado, Pulmonary. 2. Dr. Edgar, Cardiology. 3. Dr. Hoffman, Infectious Disease. HOSPITAL COURSE AND STAY: The patient is an 82-year-old female who was admitted on 01/11/2018 for shortness of breath, respiratory failure secondary to underlying nosocomial pneumonia. During hospitalization, the patient was hypoxic and placed on noninvasive positive pressure ventilation. The patient also received IV antibiotics. During her hospitalization, she slowly improved. She was weaned off of her ventilatory support and stabilized. During her stay, the patient did convert to atrial fibrillation. Cardiology was consulted. Dr. Edgar evaluated the patient and placed the patient on digoxin. The patient was stable. She was then transferred out of the [facility] to regular floor, has remained off of ventilatory support and hence done well. Infectious Disease recommends Zosyn and vancomycin and the patient was stable for discharged on 01/18/2018. DISPOSITION AT DISCHARGE: Stable. DISCHARGE INSTRUCTIONS POST FOLLOWUP: The patient is being discharged on 01/18/2018 back to her residential facility. She is to complete 2 weeks of vancomycin and 7 days of Zosyn. IV antibiotics have been arranged by bottle caser. DISCHARGE MEDICATIONS: To be continued as same prior to hospitalization in addition to completion of IV antibiotics and the initiation of digoxin. She is to follow up with physician at the residential facility to monitor atrial fibrillation and digoxin. DISCHARGE DIAGNOSES: 1. Hypoxemia. 2. Respiratory failure. 3. Nosocomial pneumonia. 4. Atrial fibrillation. Jorge Graf MD DR: ALEX JOB#: [id number] CC:
== END 2018-01-18 13:29 | DRG 720 ==
LOC: EDBD 02:23 → EMR 02:30 → 2W 04:00 → EDBEDREQ 04:19 → 2W 19:41 → 2E 01-16 20:51
DX: A41.89 Other specified sepsis (principal); J69.0 Pneumonitis due to inhalation of food and vomit; G93.40 Encephalopathy, unspecified; J96.01 Acute respiratory failure with hypoxia; J96.02 Acute respiratory failure with hypercapnia; E87.0 Hyperosmolality and hypernatremia; L89.153 Pressure ulcer of sacral region, stage 3; R13.10 Dysphagia, unspecified; E83.51 Hypocalcemia; I48.0 Paroxysmal atrial fibrillation; J44.9 Chronic obstructive pulmonary disease, unspecified; N39.0 Urinary tract infection, site not specified; Z86.73 Personal history of transient ischemic attack (TIA), and cerebral infarction without residual deficits; I10 Essential (primary) hypertension; E87.6 Hypokalemia; Z93.1 Gastrostomy status; E11.9 Type 2 diabetes mellitus without complications; F03.90 Unspecified dementia, unspecified severity, without behavioral disturbance, psychotic disturbance, mood disturbance, and anxiety
CPT/HCPCS: 36415; 36600; 71045; 80048; 80053; 80202; 81003; 82550; 82553; 82803; 82962; 83605; 83735; 84100; 84484; 85025; 85610; 85730; 87040; 87070; 87081; 87086; 87181; 87205; 93005; 93306; 94640; 94660; 94664; 94760; 99285; 99291; J1815; J7620; J8499

== ENCOUNTER 2018-02-05 02:09 | Inpatient (IN) | payer MEDICARE, MEDICAID ==
[2018-02-05] VITALS (20 sets, daily range): BP systolic 101–159; BP diastolic 51–109
[~2018-02-05] VITALS: Ht 121.9 cm; Wt 34.9 kg
[~2018-02-05 02:09] MED LIST changes: +DIGOXIN0.125 MG/2 GT; +VANCOCIN250 MG IVPB; +ZOSYN 3.373.375 GM/1 IVPB
[2018-02-05] MEDS ORDERED: Vancomycin 1 GM in NS 275 ML IV ONE (02:15)
--- NOTE | 2018-02-05 02:19 | Emergency Room Report ---
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 Symptoms were just noticed a few hours ago according EMS. Patient is nonverbal so cannot corroborate anything at all. Allergies: Coded Allergies: No Known Allergies (Verified , 03/10/07) Patient History Limited by: medical condition Past Medical History: see triage record Now: No Reviewed Nursing Documentation: PMH: Agreed; PSxH: Agreed Nursing Documentation-PMH Hx Hypertension: Yes Hx COPD: Yes Hx Diabetes: Yes Hx Neurological Problems: Yes - CVA Hx Cerebrovascular Accident: Yes - right side contracted Review of Systems All Other Systems: limited - Nonverbal Physical Exam Vital Signs Date Time Temp Pulse Resp B/P (MAP) Pulse Ox O2 Delivery O2 Flow Rate FiO2 02/05/18 02:04 101.8 124 26 124/73 94 Non-Rebreather 101.8 Sp02 EP Interpretation: reviewed, abnormal General Appearance: alert, moderate distress, cachetic Head: normocephalic Eyes: bilateral eye normal inspection, bilateral eye other - Eyes sunken ENT: normal ENT inspection, no angioedema, dry mucus membranes Neck: normal inspection, supple, supple/symm/no masses Respiratory: chest non-tender, lungs clear, decreased breath sounds - Left side with decreased, accessory muscle use, chest symmetrical, palpation of chest normal Cardiovascular #1: regular rate, rhythm, no edema, no gallop, no murmur, no rub Cardiovascular #2: 2+ radial (R), 2+ radial (L) Gastrointestinal: normal inspection, non tender, soft, no mass, no guarding, no rebound, other Rectal: deferred Genitourinary: normal inspection, no CVA tenderness, other - sarkar intact Musculoskeletal: back normal, gait/station normal, normal range of motion, non- tender, no calf tenderness Neurologic: alert, responsive, 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 tested, motor strength/tone normal, sensory intact, speech normal Psychiatric: mood/affect normal - flat affect Skin: normal color, warm/dry Lymphatic: no adenopathy Procedures Critical Care Time Critical Care Time 45 mins excluding all procedures, due to need for emergent eval and re-evals given systemic illness/sepsis, hypoxia Medical Decision Making Diagnostic Impression: Primary Impression: Sepsis ER Course Patient given rectal Tylenol, fully catheter discontinued a new one placed, treated with sepsis protocol including IV fluid bolus, blood cultures, lactic acid, broad-spectrum antibiotics given within the first hour. Repeat focus sepsis exam reveals patient's hemodynamics improved. ABG reveals hypoxia, but no acidosis Patient already treated for her urine infection with broad-spectrum antibiotics Chest x-ray does not reveal obvious pneumothorax or pneumonia Patient will be admitted ICU diagnosis sepsis EKG Diagnostic Results EKG Time: 02:02 EP Interpretation: no st-t changes, no TWI's Rate: tachycardiac Rhythm: NSR ST Segments: no acute changes ASA given to the pt in ED: No Rhythm Strip Diag. Results Rhythm Strip Time: 02:18 EP Interpretation: yes Rate: 120 Rhythm: NSR, no PVC's, no ectopy Chest X-Ray Diagnostic Results Chest X-Ray Diagnostic Results : Chest X-Ray Ordered: Yes # of Views/Limited/Complete: 1 View Indication: Shortness of Breath EP Interpretation: Yes Interpretation: no consolidation, no effusion, no pneumothorax, no acute cardiopulmonary disease Impression: Other - Very poor view of L lung field due to scoliosis and limitations in positioning Electronically Signed by: Sherice Meza MD Last Vital Signs Date Time Temp Pulse Resp B/P (MAP) Pulse Ox O2 Delivery O2 Flow Rate FiO2 02/05/18 02:04 101.8 124 26 124/73 94 Non-Rebreather 101.8 Disposition: ADMITTED INPATIENT Condition: Serious SHERICE MEAZ M.D Feb 05, 2018 02:19
[2018-02-05] MEDS ORDERED: Acetaminophen 650 MG SUPP RECTAL ONE (02:30)
[2018-02-05 02:36] LABS: BASOPHILS % (AUTO) 0.5 % (0.0-2.0); HEMOGLOBIN 14.6 G/DL (12.0-16.0); MEAN CORPUSCULAR VOLUME 87 FL (80-99); MONOCYTES % (AUTO) 3.7 % (1.0-10.0); NEUTROPHILS % (AUTO) 84.8 % (45.0-75.0); PLATELET COUNT 373 K/UL (150-450); RED BLOOD COUNT 5.38 M/UL (4.20-5.40); RED CELL DISTRIBUTION WIDTH 16.2 % (11.6-14.8); WHITE BLOOD COUNT 16.3 K/UL (4.8-10.8)
[2018-02-05 02:37] LABS: BILIRUBIN, URINE NEGATIVE (NEGATIVE); GLUCOSE, URINE (UA) NEGATIVE (NEGATIVE); KETONES,URINE NEGATIVE (NEGATIVE); LEUKOCYTE ESTERASE ,URINE 2+ (NEGATIVE); NITRITE,URINE NEGATIVE (NEGATIVE); PH,URINE 5 (4.5-8.0); PROTEIN,URINE 3+ (NEGATIVE); UROBILINOGEN,URINE NORMAL MG/DL (0.0-1.0)
[2018-02-05 02:49] LABS: ANION GAP 7 mmol/L (5-15); BLOOD UREA NITROGEN 48 mg/dL (7-18); CALCIUM 9.8 MG/DL (8.5-10.1); CARBON DIOXIDE 31 MMOL/L (21-32); CHLORIDE 114 MMOL/L (98-107); CREATININE 0.9 MG/DL (0.55-1.30); POTASSIUM 3.8 MMOL/L (3.5-5.1); SODIUM 152 MMOL/L (136-145)
[2018-02-05 02:56] LABS: APPEARANCE,URINE SLIGHTLY CLOUDY; COLOR,URINE YELLOW
[2018-02-05 03:01] LABS: ALANINE AMINOTRANSFERASE 22 U/L (12-78); ALBUMIN 2.5 G/DL (3.4-5.0); ALBUMIN/GLOBULIN RATIO 0.5 (1.0-2.7); ALKALINE PHOSPHATASE 85 U/L (46-116); ASPARTATE AMINO TRANSFERASE 16 U/L (15-37); BILIRUBIN,TOTAL 0.4 MG/DL (0.2-1.0); CKMB < 0.5 NG/ML (0.0-3.6); CREATINE KINASE 15 U/L (26-308)
[2018-02-05] MEDS: NovoLOG Insulin Flexpen SUBQ SCH ×4 (06:30→20:36)
[2018-02-05] MEDS: Digoxin 0.125mg tab GT SCH (08:38)
[2018-02-05] MEDS: Ascorbic Acid 500mg tab GT SCH (08:38)
[2018-02-05] MEDS: Enoxaparin 30mg Inj SUBQ SCH (08:41)
[2018-02-05] MEDS ORDERED: cefTRIAXone 1gm/NS 55ml IVPB SCH ×2 (09:00)
[2018-02-05 09:24] LABS: BASOPHILS % (AUTO) 0.6 % (0.0-2.0); HEMATOCRIT 44.7 % (37.0-47.0); MEAN CORPUSCULAR VOLUME 88 FL (80-99); MONOCYTES % (AUTO) 3.2 % (1.0-10.0); NEUTROPHILS % (AUTO) 83.3 % (45.0-75.0); PLATELET COUNT 324 K/UL (150-450); RED BLOOD COUNT 5.06 M/UL (4.20-5.40); RED CELL DISTRIBUTION WIDTH 16.6 % (11.6-14.8); WHITE BLOOD COUNT 15.4 K/UL (4.8-10.8)
--- NOTE | 2018-02-05 09:47 | Diagnostic Imaging Report ---
Indication: Dyspnea Technique: One view of the chest Comparison: 01/16/2018 Findings: Patient is rotated to the left. Technologist reports patient was difficult to position. There is suggestion of retrocardiac consolidation or atelectasis, possibly slightly increased from the prior exam. The remainder the lungs are clear. The left pleural space is not well-demonstrated, small effusion not excludable. There is evidence of a gastrostomy. Impression: Limited exam, as described Equivocal retrocardiac consolidation and/or atelectasis, may be increased from prior study of 01/16/2018
[2018-02-05 09:50] LABS: ANION GAP 10 mmol/L (5-15); BLOOD UREA NITROGEN 39 mg/dL (7-18); CALCIUM 8.7 MG/DL (8.5-10.1); CARBON DIOXIDE 27 MMOL/L (21-32); CHLORIDE 117 MMOL/L (98-107); CREATININE 0.6 MG/DL (0.55-1.30); POTASSIUM 4.6 MMOL/L (3.5-5.1); SODIUM 154 MMOL/L (136-145)
--- NOTE | 2018-02-05 14:01 | Infectious Diseases Prog Note ---
Assessment/Plan Problems: (1) HCAP (healthcare-associated pneumonia) Assessment & Plan: complicated with respiratory failure, will send sputum culture, and start vancomycin with zosyn empiric coverage . stop ceftriaxon and levaquin (2) Catheter-associated urinary tract infection Assessment & Plan: S/P sarkar catheter exchange , will start zosyn empiric coverage pending culture (3) Sacral wound Assessment & Plan: continue local wound care and dressing changes as per hospital protocol . already on wide spectrum antibiotics pending culture , recommend wound care consult (4) Sepsis Assessment & Plan: due to the above , will cover her empirically with vancomycin and zosyn pending cultures (5) Acute respiratory failure Assessment & Plan: due to the above, started on BIPAP, pulmonary is following, monitor CXR and ABG Subjective Allergies: Coded Allergies: No Known Allergies (Verified , 03/10/07) Objective Vital Signs Last 24 Hour Vital Signs Date Time Temp Pulse Resp B/P (MAP) Pulse Ox O2 Delivery O2 Flow Rate FiO2 02/05/18 13:00 102 9 135/85 97 Bi-pap 50 02/05/18 12:43 103 31 99 Facial 50 02/05/18 12:00 100 02/05/18 12:00 98.8 98 26 147/80 100 Bi-pap 100 98.8 02/05/18 12:00 95 02/05/18 11:00 109 20 159/109 99 Bi-pap 100 02/05/18 10:08 112 35 97 Facial 100 02/05/18 10:00 112 22 152/75 98 Non-Rebreather 15.0 02/05/18 09:00 117 23 155/103 92 Non-Rebreather 15.0 02/05/18 08:38 122 02/05/18 08:00 99.7 109 30 118/72 95 Non-Rebreather 15.0 99.7 02/05/18 07:00 113 27 153/79 90 Non-Rebreather 15.0 02/05/18 06:00 109 27 140/83 90 Non-Rebreather 15.0 02/05/18 05:00 97.9 106 28 157/95 90 Non-Rebreather 15.0 97.9 02/05/18 05:00 15.0 02/05/18 04:45 99.8 102 26 142/83 94 Non-Rebreather 15.0 99.8 02/05/18 04:45 99.8 102 26 142/83 94 Non-Rebreather 15.0 215.2 02/05/18 04:38 109 02/05/18 02:29 101.8 02/05/18 02:04 101.8 124 26 124/73 94 Non-Rebreather 101.8 Height (Feet): 4 Height (Inches): 0.00 Weight (Pounds): 83 Laboratory Tests Test 02/05/18 02:12 02/05/18 02:15 02/05/18 06:50 02/05/18 08:55 Arterial Blood pH 7.468 (7.350-7.450) 7.460 (7.350-7.450) Arterial Blood Partial Pressure CO2 41.6 mmHg (35.0-45.0) 40.2 mmHg (35.0-45.0) Arterial Blood Partial Pressure O2 49.0 mmHg (75.0-100.0) 48.2 mmHg (75.0-100.0) Arterial Blood HCO3 29.5 mmol/L (22.0-26.0) H 28.1 mmol/L (22.0-26.0) H Arterial Blood Oxygen Saturation 85.3 % (92.0-98.0) L 84.5 % (92.0-98.0) L Arterial Blood Base Excess 5.3 4.0 Kang Test Positive Positive White Blood Count 16.3 K/UL (4.8-10.8) H 15.4 K/UL (4.8-10.8) H Red Blood Count 5.38 M/UL (4.20-5.40) 5.06 M/UL (4.20-5.40) Hemoglobin 14.6 G/DL (12.0-16.0) 14.0 G/DL (12.0-16.0) Hematocrit 47.0 % (37.0-47.0) 44.7 % (37.0-47.0) Mean Corpuscular Volume 87 FL (80-99) 88 FL (80-99) Mean Corpuscular Hemoglobin 27.2 PG (27.0-31.0) 27.7 PG (27.0-31.0) Mean Corpuscular Hemoglobin Concent 31.1 G/DL (32.0-36.0) L 31.4 G/DL (32.0-36.0) L Red Cell Distribution Width 16.2 % (11.6-14.8) H 16.6 % (11.6-14.8) H Platelet Count 373 K/UL (150-450) 324 K/UL (150-450) Mean Platelet Volume 9.2 FL (6.5-10.1) 10.4 FL (6.5-10.1) H Neutrophils (%) (Auto) 84.8 % (45.0-75.0) H 83.3 % (45.0-75.0) H Lymphocytes (%) (Auto) 11.0 % (20.0-45.0) L 13.0 % (20.0-45.0) L Monocytes (%) (Auto) 3.7 % (1.0-10.0) 3.2 % (1.0-10.0) Eosinophils (%) (Auto) 0.0 % (0.0-3.0) 0.0 % (0.0-3.0) Basophils (%) (Auto) 0.5 % (0.0-2.0) 0.6 % (0.0-2.0) Urine Color Yellow Urine Appearance Slightly cloudy Urine pH 5 (4.5-8.0) Urine Specific [place] 1.010 (1.005-1.035) Urine Protein 3+ (NEGATIVE) H Urine Glucose (UA) Negative (NEGATIVE) Urine Ketones Negative (NEGATIVE) Urine Occult Blood 2+ (NEGATIVE) H Urine Nitrite Negative (NEGATIVE) Urine Bilirubin Negative (NEGATIVE) Urine Urobilinogen Normal MG/DL (0.0-1.0) Urine Leukocyte Esterase 2+ (NEGATIVE) H Urine RBC 2-4 /HPF (0 - 2) H Urine WBC 5-10 /HPF (0 - 2) H Urine Squamous Epithelial Cells Many /LPF (NONE/OCC) H Urine Calcium Oxalate Crystals Few /LPF (NONE) Urine Bacteria Moderate /HPF (NONE) H Urine Hyaline Casts 0-2 /LPF (NONE) H Urine Fine Granular Casts 5-10 /LPF (NONE) H Urine Coarse Granular Casts 10-15 /LPF (NONE) H Sodium Level 152 MMOL/L (136-145) H 154 MMOL/L (136-145) H Potassium Level 3.8 MMOL/L (3.5-5.1) 4.6 MMOL/L (3.5-5.1) Chloride Level 114 MMOL/L (98-107) H 117 MMOL/L (98-107) H Carbon Dioxide Level 31 MMOL/L (21-32) 27 MMOL/L (21-32) Anion Gap 7 mmol/L (5-15) 10 mmol/L (5-15) Blood Urea Nitrogen 48 mg/dL (7-18) H 39 mg/dL (7-18) H Creatinine 0.9 MG/DL (0.55-1.30) 0.6 MG/DL (0.55-1.30) Estimat Glomerular Filtration Rate mL/min (>60) mL/min (>60) Glucose Level 190 MG/DL (74-106) H 151 MG/DL (74-106) H Lactic Acid Level 1.70 mmol/L (0.4-2.0) Calcium Level 9.8 MG/DL (8.5-10.1) 8.7 MG/DL (8.5-10.1) Magnesium Level 2.6 MG/DL (1.8-2.4) H Total Bilirubin 0.4 MG/DL (0.2-1.0) Aspartate Amino Transf (AST/SGOT) 16 U/L (15-37) Alanine Aminotransferase (ALT/SGPT) 22 U/L (12-78) Alkaline Phosphatase 85 U/L (46-116) Total Creatine Kinase 15 U/L (26-308) L Creatine Kinase MB < 0.5 NG/ML (0.0-3.6) Creatine Kinase MB Relative Index 3.3 Troponin I 0.011 ng/mL (0.000-0.056) Pro-B-Type Natriuretic Peptide 1756 pg/mL (0-125) H Total Protein 8.0 G/DL (6.4-8.2) Albumin 2.5 G/DL (3.4-5.0) L Globulin 5.5 g/dL Albumin/Globulin Ratio 0.5 (1.0-2.7) L Test 02/05/18 09:02 02/05/18 12:12 Arterial Blood pH 7.440 (7.350-7.450) 7.410 (7.350-7.450) Arterial Blood Partial Pressure CO2 40.6 mmHg (35.0-45.0) 49.2 mmHg (35.0-45.0) H Arterial Blood Partial Pressure O2 58.7 mmHg (75.0-100.0) L 237.0 mmHg (75.0-100.0) H Arterial Blood HCO3 27.2 mmol/L (22.0-26.0) H 31.1 mmol/L (22.0-26.0) H Arterial Blood Oxygen Saturation 90.2 % (92.0-98.0) L 99.3 % (92.0-98.0) H Arterial Blood Base Excess 2.9 5.6 Kang Test Positive Positive Current Medications Medications (Trade) Dose Ordered Sig/[place] Route PRN Reason Start Time Stop Time Status Last Admin Dose Admin Ascorbic Acid (Vitamin C) 500 mg DAILY GT 02/05/18 09:00 03/07/18 08:59 02/05/18 08:38 Ceftriaxone Sodium 1 gm/ Sodium Chloride 55 ml @ 110 mls/hr Q24H IVPB 02/05/18 09:00 02/12/18 08:59 02/05/18 11:06 Dextrose (Dextrose 50%) 25 ml STAT PRN IV Hypoglycemia 02/05/18 04:00 03/07/18 03:59 Dextrose (Dextrose 50%) 50 ml STAT PRN IV Hypoglycemia 02/05/18 04:00 03/07/18 03:59 Digoxin (Lanoxin) 0.125 mg DAILY GT 02/05/18 09:00 03/07/18 08:59 02/05/18 08:38 Enoxaparin Sodium (Lovenox) 30 mg Q24H SUBQ 02/05/18 09:00 03/07/18 08:59 02/05/18 08:41 Insulin Aspart (NovoLOG) BEFORE MEALS AND HS SUBQ 02/05/18 06:30 03/07/18 06:29 02/05/18 11:32 Levofloxacin 150 ml @ 150 mls/hr Q24H IV 02/05/18 02:15 02/06/18 02:14 02/05/18 02:28 Morphine Sulfate (Morphine Sulfate) 0.5 mg Q4H PRN IVP For Pain 02/05/18 08:15 02/12/18 08:14 Dom Hoffman M.D. Feb 05, 2018 14:01
[2018-02-05] MEDS: Piperacillin/Tazobactam 3.375 GM in D5W 110 ML IVPB SCH (14:54)
--- NOTE | 2018-02-05 14:56 | Consultation ---
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 In ED was found to have UTI and likely pneumonia as well as multiple wounds which were concerning as possible etiology of sepsis. Surgery called to evaluate. patient seen, chart reviewed, patient examined. care discussed with team and staff. patient noted to have leukocytosis on admission. CXR reviewed. labs reviewed. extensive history. Allergies: Coded Allergies: No Known Allergies (Verified , 03/10/07) Medication History Scheduled Ascorbic Acid* (Vitamin C*), 500 MG ORAL DAILY, (Reported) Bisacodyl* (Dulcolax*), 10 MG ORAL DAILY, (Reported) Digoxin* (Digoxin*), 0.125 MG GT DAILY Enoxaparin* (Lovenox*), 40 MG SUBQ DAILY, (Reported) Esomeprazole Magnesium (Nexium), 40 MG ORAL DAILY, (Reported) Guaifenesin* (Adult [employer]-Tussin*), 5 ML ORAL Q4H, (Reported) Levalbuterol Hcl (Xopenex*), 1.25 MG HHN Q4H, (Reported) Magnesium Hydroxide* (Milk Of Magnesia*), 30 ML ORAL DAILY, (Reported) Multivitamin With Minerals (Multivitamins With Minerals*), 1 TAB ORAL DAILY, ( Reported) Gdpzcvmggxar-Uvvs-Xgzyfgrn,Iso (Zosyn 3.375 Gm Pre Mix-Bag), 3.375 GM IVPB EVERY 8 HOURS, (Reported) Qbtoqidbzrbn-Sodw-Vnjzxwzy,Iso (Zosyn 3.375 Gm Pre Mix-Bag), 3.375 GM IVPB EVERY 8 HOURS, (Reported) Zrlxnaxosmpu-Kpss-Pqcqfrem,Iso (Zosyn 3.375 Gm Pre Mix-Bag), 3.375 GM IVPB EVERY 8 HOURS, (Reported) Vancomycin HCl (Vancocin HCl), 750 MG IVPB Q12HR, (Reported) Zinc Sulfate (Zinc Sulfate*), 220 MG ORAL DAILY, (Reported) Scheduled PRN Acetaminophen 160MG/5ML* (Acetaminophen*), 5 ML ORAL THREE TIMES A DAY PRN for Fever/Headache/Mild Pain, (Reported) Ipratropium [place] 0.5MG/2.5ML (Ipratropium [place] 0.5MG/2.5ML), 0.5 MG HHN Q6H PRN for Shortness of Breath, (Reported) Tramadol Hcl* (Ultram*), 50 MG ORAL Q6H PRN for For Pain, (Reported) Miscellaneous Medications Amino Acids/Protein Hydrolys (Pro-Stat Profile Liquid), 887 ML PO, (Reported) Insulin Lispro (Humalog), 0 SUBQ, (Reported) Nut.tx.gluc.intoler,Lac-Fr,Soy (Glytrol), 250 ML PO, (Reported) Sennosides (Senna), 8.6 MG PO, (Reported) Patient History Limited by: medical condition History Provided By: Medical Record, PMD Healthcare decision maker Resuscitation status Full Code Advanced Directive on File Past Medical/Surgical History Past Medical/Surgical History: (1) Decubitus ulcer of left hip, stage 2 (2) Foot ulcer, right (3) Septic shock due to Gram positive bacteria (4) Afib (5) Acute respiratory failure (6) Sepsis (7) HCAP (healthcare-associated pneumonia) (8) Sacral wound (9) Catheter-associated urinary tract infection Review of Systems ROS Narrative cannot obtain given patients medical condition Physical Exam General Appearance: no apparent distress HEENT: atraumatic, mucous membranes moist Neck: normal inspection Respiratory/Chest: no respiratory distress, other - on mask Cardiovascular/Chest: tachycardia Abdomen: soft, no organomegaly, no mass Extremities: other - see photos Neurologic: unresponsiveness Last 24 Hour Vital Signs Date Time Temp Pulse Resp B/P (MAP) Pulse Ox O2 Delivery O2 Flow Rate FiO2 02/05/18 14:32 99 33 98 Facial 40 02/05/18 14:01 95 30 141/77 98 Bi-pap 50 02/05/18 13:00 102 9 135/85 97 Bi-pap 50 02/05/18 12:43 103 31 99 Facial 50 02/05/18 12:00 100 02/05/18 12:00 98.8 98 26 147/80 100 Bi-pap 100 98.8 02/05/18 12:00 95 02/05/18 11:00 109 20 159/109 99 Bi-pap 100 6/22/18 10:08 112 35 97 Facial 100 02/05/18 10:00 112 22 152/75 98 Non-Rebreather 15.0 02/05/18 09:00 117 23 155/103 92 Non-Rebreather 15.0 02/05/18 08:38 122 02/05/18 08:00 99.7 109 30 118/72 95 Non-Rebreather 15.0 99.7 02/05/18 07:00 113 27 153/79 90 Non-Rebreather 15.0 02/05/18 06:00 109 27 140/83 90 Non-Rebreather 15.0 02/05/18 05:00 97.9 106 28 157/95 90 Non-Rebreather 15.0 97.9 02/05/18 05:00 15.0 02/05/18 04:45 99.8 102 26 142/83 94 Non-Rebreather 15.0 99.8 02/05/18 04:45 99.8 102 26 142/83 94 Non-Rebreather 15.0 215.2 02/05/18 04:38 109 02/05/18 02:29 101.8 02/05/18 02:04 101.8 124 26 124/73 94 Non-Rebreather 101.8 Intake and Output 02/04/18 02/05/18 19:00 07:00 Intake Total 100 ml Output Total 180 ml Balance -80 ml Intake Oral 0 ml Free Water 80 ml Tube Feeding 20 ml Output Urine Total 150 ml Stool Total 30 ml # Bowel Movements 3 Laboratory Tests Test 02/05/18 02:12 02/05/18 02:15 02/05/18 06:50 02/05/18 08:55 Arterial Blood pH 7.468 (7.350-7.450) 7.460 (7.350-7.450) Arterial Blood Partial Pressure CO2 41.6 mmHg (35.0-45.0) 40.2 mmHg (35.0-45.0) Arterial Blood Partial Pressure O2 49.0 mmHg (75.0-100.0) 48.2 mmHg (75.0-100.0) Arterial Blood HCO3 29.5 mmol/L (22.0-26.0) H 28.1 mmol/L (22.0-26.0) H Arterial Blood Oxygen Saturation 85.3 % (92.0-98.0) L 84.5 % (92.0-98.0) L Arterial Blood Base Excess 5.3 4.0 Kang Test Positive Positive White Blood Count 16.3 K/UL (4.8-10.8) H 15.4 K/UL (4.8-10.8) H Red Blood Count 5.38 M/UL (4.20-5.40) 5.06 M/UL (4.20-5.40) Hemoglobin 14.6 G/DL (12.0-16.0) 14.0 G/DL (12.0-16.0) Hematocrit 47.0 % (37.0-47.0) 44.7 % (37.0-47.0) Mean Corpuscular Volume 87 FL (80-99) 88 FL (80-99) Mean Corpuscular Hemoglobin 27.2 PG (27.0-31.0) 27.7 PG (27.0-31.0) Mean Corpuscular Hemoglobin Concent 31.1 G/DL (32.0-36.0) L 31.4 G/DL (32.0-36.0) L Red Cell Distribution Width 16.2 % (11.6-14.8) H 16.6 % (11.6-14.8) H Platelet Count 373 K/UL (150-450) 324 K/UL (150-450) Mean Platelet Volume 9.2 FL (6.5-10.1) 10.4 FL (6.5-10.1) H Neutrophils (%) (Auto) 84.8 % (45.0-75.0) H 83.3 % (45.0-75.0) H Lymphocytes (%) (Auto) 11.0 % (20.0-45.0) L 13.0 % (20.0-45.0) L Monocytes (%) (Auto) 3.7 % (1.0-10.0) 3.2 % (1.0-10.0) Eosinophils (%) (Auto) 0.0 % (0.0-3.0) 0.0 % (0.0-3.0) Basophils (%) (Auto) 0.5 % (0.0-2.0) 0.6 % (0.0-2.0) Urine Color Yellow Urine Appearance Slightly cloudy Urine pH 5 (4.5-8.0) Urine Specific [place] 1.010 (1.005-1.035) Urine Protein 3+ (NEGATIVE) H Urine Glucose (UA) Negative (NEGATIVE) Urine Ketones Negative (NEGATIVE) Urine Occult Blood 2+ (NEGATIVE) H Urine Nitrite Negative (NEGATIVE) Urine Bilirubin Negative (NEGATIVE) Urine Urobilinogen Normal MG/DL (0.0-1.0) Urine Leukocyte Esterase 2+ (NEGATIVE) H Urine RBC 2-4 /HPF (0 - 2) H Urine WBC 5-10 /HPF (0 - 2) H Urine Squamous Epithelial Cells Many /LPF (NONE/OCC) H Urine Calcium Oxalate Crystals Few /LPF (NONE) Urine Bacteria Moderate /HPF (NONE) H Urine Hyaline Casts 0-2 /LPF (NONE) H Urine Fine Granular Casts 5-10 /LPF (NONE) H Urine Coarse Granular Casts 10-15 /LPF (NONE) H Sodium Level 152 MMOL/L (136-145) H 154 MMOL/L (136-145) H Potassium Level 3.8 MMOL/L (3.5-5.1) 4.6 MMOL/L (3.5-5.1) Chloride Level 114 MMOL/L (98-107) H 117 MMOL/L (98-107) H Carbon Dioxide Level 31 MMOL/L (21-32) 27 MMOL/L (21-32) Anion Gap 7 mmol/L (5-15) 10 mmol/L (5-15) Blood Urea Nitrogen 48 mg/dL (7-18) H 39 mg/dL (7-18) H Creatinine 0.9 MG/DL (0.55-1.30) 0.6 MG/DL (0.55-1.30) Estimat Glomerular Filtration Rate mL/min (>60) mL/min (>60) Glucose Level 190 MG/DL (74-106) H 151 MG/DL (74-106) H Lactic Acid Level 1.70 mmol/L (0.4-2.0) Calcium Level 9.8 MG/DL (8.5-10.1) 8.7 MG/DL (8.5-10.1) Magnesium Level 2.6 MG/DL (1.8-2.4) H Total Bilirubin 0.4 MG/DL (0.2-1.0) Aspartate Amino Transf (AST/SGOT) 16 U/L (15-37) Alanine Aminotransferase (ALT/SGPT) 22 U/L (12-78) Alkaline Phosphatase 85 U/L (46-116) Total Creatine Kinase 15 U/L (26-308) L Creatine Kinase MB < 0.5 NG/ML (0.0-3.6) Creatine Kinase MB Relative Index 3.3 Troponin I 0.011 ng/mL (0.000-0.056) Pro-B-Type Natriuretic Peptide 1756 pg/mL (0-125) H Total Protein 8.0 G/DL (6.4-8.2) Albumin 2.5 G/DL (3.4-5.0) L Globulin 5.5 g/dL Albumin/Globulin Ratio 0.5 (1.0-2.7) L Test 02/05/18 09:02 02/05/18 12:12 Arterial Blood pH 7.440 (7.350-7.450) 7.410 (7.350-7.450) Arterial Blood Partial Pressure CO2 40.6 mmHg (35.0-45.0) 49.2 mmHg (35.0-45.0) H Arterial Blood Partial Pressure O2 58.7 mmHg (75.0-100.0) L 237.0 mmHg (75.0-100.0) H Arterial Blood HCO3 27.2 mmol/L (22.0-26.0) H 31.1 mmol/L (22.0-26.0) H Arterial Blood Oxygen Saturation 90.2 % (92.0-98.0) L 99.3 % (92.0-98.0) H Arterial Blood Base Excess 2.9 5.6 Kang Test Positive Positive Height (Feet): 4 Height (Inches): 0.00 Weight (Pounds): 83 Medications Current Medications Medications (Trade) Dose Ordered Sig/[place] Route PRN Reason Start Time Stop Time Status Last Admin Dose Admin Ascorbic Acid (Vitamin C) 500 mg DAILY GT 02/05/18 09:00 03/07/18 08:59 02/05/18 08:38 Dextrose (Dextrose 50%) 25 ml STAT PRN IV Hypoglycemia 02/05/18 04:00 03/07/18 03:59 Dextrose (Dextrose 50%) 50 ml STAT PRN IV Hypoglycemia 02/05/18 04:00 03/07/18 03:59 Digoxin (Lanoxin) 0.125 mg DAILY GT 02/05/18 09:00 03/07/18 08:59 02/05/18 08:38 Enoxaparin Sodium (Lovenox) 30 mg Q24H SUBQ 02/05/18 09:00 03/07/18 08:59 02/05/18 08:41 Insulin Aspart (NovoLOG) BEFORE MEALS AND HS SUBQ 02/05/18 06:30 03/07/18 06:29 02/05/18 11:32 Morphine Sulfate (Morphine Sulfate) 0.5 mg Q4H PRN IVP For Pain 02/05/18 08:15 02/12/18 08:14 Piperacillin Sod/ Tazobactam Sod 3.375 gm/Dextrose 110 ml @ 27.5 mls/hr Q12HR@0300,1500 IVPB 02/05/18 15:00 02/12/18 14:59 Vancomycin HCl (Vanco rx to dose) 1 ea DAILY PRN MISC Per rx protocol 02/05/18 14:00 03/07/18 13:59 Vancomycin HCl 500 mg/Dextrose 110 ml @ 110 mls/hr Q24H IVPB 02/06/18 02:00 02/11/18 01:59 Assessment/Plan Problem List: (1) Sepsis Assessment & Plan: PNA, UTI, multiple wounds. unlikely wounds etiology of sepsis given clinical evaluation. -Cont Abx as per ID ICD Codes: A41.9 - Sepsis, unspecified organism SNOMED: 24996273 Qualifiers: Qualified Codes: A41.9 - Sepsis, unspecified organism (2) Foot ulcer, right Assessment & Plan: right foot medial aspect with two wounds. proximal unstageable with necrotic eschar, no erythema, no edema, no signs of infection, no drainage, no odor. distal with open stage II ulcer with ulcer erythema, no edema, no signs of infection, no drainage, no odor. -skin protectant and foam dressings daily and prn. -no debridement currently necessary. no signs of active infection -wounds present on admission ICD Codes: L97.519 - Non-pressure chronic ulcer of other part of right foot with unspecified severity SNOMED: 99036426 Qualifiers: Qualified Codes: L97.519 - Non-pressure chronic ulcer of other part of right foot with unspecified severity (3) Decubitus ulcer of left hip, stage 2 Assessment & Plan: stage II left hip pressure ulcer. open stage II ulcer with ulcer erythema, no edema, no signs of infection, no drainage, no odor. -skin protectant and foam dressings daily and prn. -no debridement currently necessary. -wounds present on admission ICD Codes: L89.222 - Pressure ulcer of left hip, stage 2 SNOMED: 115680986, [id number] (4) Sacral wound Assessment & Plan: stage III left hip pressure ulcer. open stage III ulcer with ulcer erythema, no edema, no signs of infection, minimal serous oozing/ drainage, no odor. please refer to wound care photos for size and shape -skin protectant and foam dressings daily and prn. fortunately superficial and minimal depth. majority stage II and small portion stage III. -no debridement currently necessary. -wounds present on admission ICD Codes: S31.000A - Unspecified open wound of lower back and pelvis without penetration into retroperitoneum, initial encounter SNOMED: 870534864 Status: unchanged Nikko Austin Feb 05, 2018 14:56
--- NOTE | 2018-02-05 14:56 | Cardiology Report ---
APPROVED REPORT EKG Measurement Heart [id number] SD [id number] Sinus tachycardia Nonspecific ST and T wave abnormality Abnormal ECG
--- NOTE | 2018-02-05 16:30 | History and Physical Report ---
DATE OF ADMISSION: 02/05/2018 REASON FOR ADMISSION: 1. Shortness of breath. 2. UTI. 3. Sepsis. HISTORY OF PRESENT ILLNESS: The patient is an 82-year-old female, known to our service here at [facility] at recent admission for pneumonia. She presented from the skilled nursing with low oxygen saturations and fever, noted UTI. The patient had arrived already with a stage III sacral decubitus. The patient was placed on a non-rebreather. Her oxygen saturation improved and she was initiated on antibiotics. The patient is nonverbal and grunts most of the time. She is in moderate distress, difficult to ascertain underlying etiology. PAST MEDICAL HISTORY: 1. Dementia. 2. Pneumonia. 3. Sacral decubitus stage III. 4. Diabetes mellitus. 5. Dehydration. 6. Hypertension. 7. COPD. 8. Residual aphasia. 9. Contractures. PAST SURGICAL HISTORY: Noncontributory. ALLERGIES: No known drug allergies. FAMILY HISTORY: Positive for hypertension. REVIEW OF SYSTEMS: Cannot obtain, as the patient is aphasic and nonverbal. PHYSICAL EXAMINATION: GENERAL: The patient awake, agitated, nonverbal. VITAL SIGNS: Blood pressure 153/79, respiratory rate 27, pulse 113, and 90% oxygen saturation on a non-rebreather. HEENT: Extraocular muscles intact. No lymphadenopathy. Oropharyngeal is clear and dry. CARDIOVASCULAR: S1 and S2. Regular rate. PULMONARY: Upper airway rhonchi. Fair air movement. Decreased breath sounds bilaterally. ABDOMEN: Nondistended and nontender. EXTREMITY: No edema. LABORATORY AND DIAGNOSTIC DATA: Laboratories dated 02/05/2018, sodium 152, potassium 3.8, chloride 114, bicarbonate 31, BUN 48, and creatinine 0.9. Calcium 9.8. Magnesium 2.6. AST and ALT 16 and 22 respectively. Total creatine kinase of 15. Troponin 0.011. White cell count 16.3, hemoglobin 14.6, and platelet count 373. ABG with a pH of 7.4, pCO2 of 40, pO2 of 48, and bicarbonate of 28. ASSESSMENT AND PLAN: 1. Sepsis, most likely underlying due to urinary tract infection with a temperature 101 degrees. The patient has been initiated on Rocephin and Infectious Disease has been consulted. 2. Diabetes mellitus. The patient currently on Glucerna with insulin sliding scale. 3. Atrial fibrillation. The patient on digoxin. 4. Sepsis with sacral decubitus. At this time, General Surgery has been consulted along with Infectious Disease. 5. Respiratory insufficiency/failure. The patient on non-rebreather. May require BiPAP and/or intubations if the patient deteriorates. Pulmonary Critical Care, Dr. Sawant has been consulted for further evaluation and management. 6. DVT prophylaxis with Lovenox subcutaneous 40 mg. Jorge Graf MD DR: ALEX JOB#: [id number] CC:
--- NOTE | 2018-02-05 16:53 | Cardiac Electrophysiology PN ---
Subjective Subjective [id number] Objective Last 24 Hour Vital Signs Date Time Temp Pulse Resp B/P (MAP) Pulse Ox O2 Delivery O2 Flow Rate FiO2 02/05/18 16:00 40 02/05/18 16:00 98 02/05/18 16:00 98 28 150/87 98 Bi-pap 40 02/05/18 15:00 108 24 142/88 97 Bi-pap 40 02/05/18 14:32 99 33 98 Facial 40 02/05/18 14:01 95 30 141/77 98 Bi-pap 50 02/05/18 13:00 102 9 135/85 97 Bi-pap 50 02/05/18 12:43 103 31 99 Facial 50 02/05/18 12:00 100 02/05/18 12:00 98.8 98 26 147/80 100 Bi-pap 100 98.8 02/05/18 12:00 95 02/05/18 11:00 109 20 159/109 99 Bi-pap 100 02/05/18 10:08 112 35 97 Facial 100 02/05/18 10:00 112 22 152/75 98 Non-Rebreather 15.0 02/05/18 09:00 117 23 155/103 92 Non-Rebreather 15.0 02/05/18 08:38 122 02/05/18 08:00 99.7 109 30 118/72 95 Non-Rebreather 15.0 99.7 02/05/18 07:00 113 27 153/79 90 Non-Rebreather 15.0 02/05/18 06:00 109 27 140/83 90 Non-Rebreather 15.0 02/05/18 05:00 97.9 106 28 157/95 90 Non-Rebreather 15.0 97.9 02/05/18 05:00 15.0 02/05/18 04:45 99.8 102 26 142/83 94 Non-Rebreather 15.0 99.8 02/05/18 04:45 99.8 102 26 142/83 94 Non-Rebreather 15.0 215.2 02/05/18 04:38 109 02/05/18 02:29 101.8 02/05/18 02:04 101.8 124 26 124/73 94 Non-Rebreather 101.8 Intake and Output 02/04/18 02/05/18 19:00 07:00 Intake Total 100 ml Output Total 180 ml Balance -80 ml Intake Oral 0 ml Free Water 80 ml Tube Feeding 20 ml Output Urine Total 150 ml Stool Total 30 ml # Bowel Movements 3 Laboratory Tests Test 02/05/18 02:12 02/05/18 02:15 02/05/18 06:50 02/05/18 08:55 Arterial Blood pH 7.468 (7.350-7.450) 7.460 (7.350-7.450) Arterial Blood Partial Pressure CO2 41.6 mmHg (35.0-45.0) 40.2 mmHg (35.0-45.0) Arterial Blood Partial Pressure O2 49.0 mmHg (75.0-100.0) 48.2 mmHg (75.0-100.0) Arterial Blood HCO3 29.5 mmol/L (22.0-26.0) H 28.1 mmol/L (22.0-26.0) H Arterial Blood Oxygen Saturation 85.3 % (92.0-98.0) L 84.5 % (92.0-98.0) L Arterial Blood Base Excess 5.3 4.0 Kang Test Positive Positive White Blood Count 16.3 K/UL (4.8-10.8) H 15.4 K/UL (4.8-10.8) H Red Blood Count 5.38 M/UL (4.20-5.40) 5.06 M/UL (4.20-5.40) Hemoglobin 14.6 G/DL (12.0-16.0) 14.0 G/DL (12.0-16.0) Hematocrit 47.0 % (37.0-47.0) 44.7 % (37.0-47.0) Mean Corpuscular Volume 87 FL (80-99) 88 FL (80-99) Mean Corpuscular Hemoglobin 27.2 PG (27.0-31.0) 27.7 PG (27.0-31.0) Mean Corpuscular Hemoglobin Concent 31.1 G/DL (32.0-36.0) L 31.4 G/DL (32.0-36.0) L Red Cell Distribution Width 16.2 % (11.6-14.8) H 16.6 % (11.6-14.8) H Platelet Count 373 K/UL (150-450) 324 K/UL (150-450) Mean Platelet Volume 9.2 FL (6.5-10.1) 10.4 FL (6.5-10.1) H Neutrophils (%) (Auto) 84.8 % (45.0-75.0) H 83.3 % (45.0-75.0) H Lymphocytes (%) (Auto) 11.0 % (20.0-45.0) L 13.0 % (20.0-45.0) L Monocytes (%) (Auto) 3.7 % (1.0-10.0) 3.2 % (1.0-10.0) Eosinophils (%) (Auto) 0.0 % (0.0-3.0) 0.0 % (0.0-3.0) Basophils (%) (Auto) 0.5 % (0.0-2.0) 0.6 % (0.0-2.0) Urine Color Yellow Urine Appearance Slightly cloudy Urine pH 5 (4.5-8.0) Urine Specific [place] 1.010 (1.005-1.035) Urine Protein 3+ (NEGATIVE) H Urine Glucose (UA) Negative (NEGATIVE) Urine Ketones Negative (NEGATIVE) Urine Occult Blood 2+ (NEGATIVE) H Urine Nitrite Negative (NEGATIVE) Urine Bilirubin Negative (NEGATIVE) Urine Urobilinogen Normal MG/DL (0.0-1.0) Urine Leukocyte Esterase 2+ (NEGATIVE) H Urine RBC 2-4 /HPF (0 - 2) H Urine WBC 5-10 /HPF (0 - 2) H Urine Squamous Epithelial Cells Many /LPF (NONE/OCC) H Urine Calcium Oxalate Crystals Few /LPF (NONE) Urine Bacteria Moderate /HPF (NONE) H Urine Hyaline Casts 0-2 /LPF (NONE) H Urine Fine Granular Casts 5-10 /LPF (NONE) H Urine Coarse Granular Casts 10-15 /LPF (NONE) H Sodium Level 152 MMOL/L (136-145) H 154 MMOL/L (136-145) H Potassium Level 3.8 MMOL/L (3.5-5.1) 4.6 MMOL/L (3.5-5.1) Chloride Level 114 MMOL/L (98-107) H 117 MMOL/L (98-107) H Carbon Dioxide Level 31 MMOL/L (21-32) 27 MMOL/L (21-32) Anion Gap 7 mmol/L (5-15) 10 mmol/L (5-15) Blood Urea Nitrogen 48 mg/dL (7-18) H 39 mg/dL (7-18) H Creatinine 0.9 MG/DL (0.55-1.30) 0.6 MG/DL (0.55-1.30) Estimat Glomerular Filtration Rate mL/min (>60) mL/min (>60) Glucose Level 190 MG/DL (74-106) H 151 MG/DL (74-106) H Lactic Acid Level 1.70 mmol/L (0.4-2.0) Calcium Level 9.8 MG/DL (8.5-10.1) 8.7 MG/DL (8.5-10.1) Magnesium Level 2.6 MG/DL (1.8-2.4) H Total Bilirubin 0.4 MG/DL (0.2-1.0) Aspartate Amino Transf (AST/SGOT) 16 U/L (15-37) Alanine Aminotransferase (ALT/SGPT) 22 U/L (12-78) Alkaline Phosphatase 85 U/L (46-116) Total Creatine Kinase 15 U/L (26-308) L Creatine Kinase MB < 0.5 NG/ML (0.0-3.6) Creatine Kinase MB Relative Index 3.3 Troponin I 0.011 ng/mL (0.000-0.056) Pro-B-Type Natriuretic Peptide 1756 pg/mL (0-125) H Total Protein 8.0 G/DL (6.4-8.2) Albumin 2.5 G/DL (3.4-5.0) L Globulin 5.5 g/dL Albumin/Globulin Ratio 0.5 (1.0-2.7) L Test 02/05/18 09:02 02/05/18 12:12 Arterial Blood pH 7.440 (7.350-7.450) 7.410 (7.350-7.450) Arterial Blood Partial Pressure CO2 40.6 mmHg (35.0-45.0) 49.2 mmHg (35.0-45.0) H Arterial Blood Partial Pressure O2 58.7 mmHg (75.0-100.0) L 237.0 mmHg (75.0-100.0) H Arterial Blood HCO3 27.2 mmol/L (22.0-26.0) H 31.1 mmol/L (22.0-26.0) H Arterial Blood Oxygen Saturation 90.2 % (92.0-98.0) L 99.3 % (92.0-98.0) H Arterial Blood Base Excess 2.9 5.6 Kang Test Positive Positive Emmanuel Edgar MD Feb 05, 2018 16:53
--- NOTE | 2018-02-05 18:15 | Consultation ---
DATE OF CONSULTATION: 02/05/2018 PULMONARY CONSULTATION CONSULTING PHYSICIAN: Jan Sawant M.D. HISTORY OF PRESENT ILLNESS: This is an 82-year-old female with history of COPD, hypertension, and previous CVA presented from the detention with shortness of breath. The patient was noted to be hypoxic with an ABG showing pO2 of 48. The patient is nonverbal, unable to provide information. X-rays were obtained, which showed evidence of pneumonia. PAST MEDICAL HISTORY: Hypertension, COPD, diabetes mellitus, and CVA with right-sided contractures. PAST SURGICAL HISTORY: None reported. HOME MEDICATIONS: Reviewed and reconciled in chart. Present medications also include Lovenox, digoxin, Rocephin, morphine, insulin sliding scale and Levaquin. REVIEW OF SYSTEMS: Unreliable. PHYSICAL EXAMINATION: GENERAL: Reveals elderly female. She has involuntary movements of her lower jaw. VITAL SIGNS: Temperature 99.8 degrees rectal, heart rate 110, respirations 27, blood pressure 118/70, and O2 saturation 95% on non-rebreather mask. CHEST: Decreased breath sounds bilaterally. ABDOMEN: Soft. EXTREMITIES: There is no edema. Right-sided contractures noted. LABORATORY AND DIAGNOSTIC DATA: White count is 16,000. Sodium 152, creatinine is 0.9, and BUN 48. Magnesium 2.6. Troponin negative. Imaging studies, none in the last 24 hours. I have reviewed the x-rays from yesterday and noted that there is a midline shift to the left. There may be a left retrocardiac density. IMPRESSION: 1. Probable pneumonia. 2. Respiratory failure, impending. 3. Hypertension. 4. Diabetes mellitus. DISCUSSION: 1. Continue non-rebreather mask. 2. We will check ABG. 3. Agree with antibiotics. 4. We will follow carefully respiratory oracle security consultant. 5. DVT and GI prophylaxes. Jan Sawant M.D. DR: ROCK JOB#: [id number] CC:
--- NOTE | 2018-02-05 22:14 | Consultation ---
DATE OF CONSULTATION: 02/05/2018 INFECTIOUS DISEASE CONSULTATION CONSULTING PHYSICIAN: Dom Hoffman M.D. REQUESTING PHYSICIAN: Jorge Graf M.D. REASON FOR CONSULTATION: Pneumonia, catheter-associated urinary tract infection, and sepsis. Recommendation for antibiotics treatment. HISTORY OF PRESENT ILLNESS: The patient is an 82-year-old female with past medical history of hypertension, chronic obstructive pulmonary disease, diabetes, and CVA with residual, was sent to [facility] from assisted living for shortness of breath, hypoxemia, and fever. The patient was noticed to have temperature of 101 in the alf with progressive shortness of breath. Her oxygen saturation was low, so she was started on oxygen at the facility and sent to the emergency room for further evaluation. In the ED, chest x-ray showed left retrocardiac consolidation concerning for pneumonia. The patient required BiPAP machine to improve her oxygenation since she was severely hypoxemic. Urinalysis showed evidence of infection, so her Mahoney catheter was exchanged in the emergency room. She was given vancomycin and ceftriaxone and later Levaquin empiric coverage and an Infectious Disease consultation was requested for further evaluation and management. As of note, the patient is a poor historian, aphasic, and cannot provide any history. History was mainly obtained from the medical record. PAST MEDICAL HISTORY: Significant for hypertension, COPD, diabetes, and CVA with right-sided residual. PAST SURGICAL HISTORY: Not on record. MEDICATIONS: She received vancomycin, levofloxacin, and ceftriaxone in the emergency room. For the rest of her medications, please refer to MAR. ALLERGIES: She has no known drug allergy. FAMILY HISTORY: Unable to obtain. SOCIAL HISTORY: She is a alf resident. No recent drugs, tobacco, or alcohol. REVIEW OF SYSTEMS: Unable to obtain. The patient is a poor historian and cannot provide any history. PHYSICAL EXAMINATION: VITAL SIGNS: Temperature 98.8, pulse 95, respirations 26, blood pressure 147/80, and saturation 100% on FiO2 of 100% on BiPAP. GENERAL: An elderly female, lying in bed, contracted, cachectic on BiPAP machine, not in acute distress. HEENT: Normocephalic and atraumatic. Pupils reactive to light. Pale sclerae. Unable to assess oral mucosa due to BiPAP mask. NECK: Seems supple. No lymphadenopathy. CARDIOVASCULAR: She is tachycardic. S1 and S2 normal. No murmur or gallop. LUNGS: She had diminished breathing sound on the left side with crackles at the bases. No wheezing or rhonchi. Normal breathing effort. ABDOMEN: Soft, nontender, and nondistended. No organomegaly or ascites. G-tube site looks intact. No erythema or drainage. EXTREMITY: Contracted with muscle atrophy. No edema or cyanosis. Right foot, two pressure wounds, seems to be dry and clean with eschar, one on the right malleolus. SKIN: She had sacral pressure wound stage III with good granulation at the borders and exudate with yellowish necrosis at the center. She has had left lateral hip pressure wound stage III with granulation at the borders and yellowish exudate. LABORATORY DATA: Labs showed white count of 15.4, hemoglobin of 14, and platelet count of 324,000. BUN of 39 and creatinine of 0.6. Urinalysis showed a +2 leukocyte esterase, wbc 5 to 10, and moderate amount of urine bacteria with coarse granular casts. IMAGING: Chest x-ray showed limited exam with equivocal retrocardiac consolidation or atelectases, may be increased from prior study of 01/16/2018. ASSESSMENT AND RECOMMENDATIONS: 1. Healthcare-acquired pneumonia complicated with respiratory failure. We will send sputum culture if she produces any and start vancomycin with Zosyn empiric coverage pending culture results. We will stop ceftriaxone and Levaquin. 2. Catheter-associated urinary tract infection status post Mahoney catheter exchanged in the ER. We will start the patient on Zosyn empiric coverage pending culture. 3. Sacral wound. Continue local wound care and dressing changes as per hospital protocol. The patient is already on wide-spectrum antibiotics pending culture. Recommend wound care consult. 4. Sepsis due to the above. We will cover the patient empirically with vancomycin and Zosyn. Pending blood culture results. 5. Acute respiratory failure due to the above on BiPAP. Already, Pulmonary is following. Monitor chest x-ray and ABG. Thank you for the consult. ID will continue to follow. Please feel free to call with any question. Dom Hoffman M.D. DR: MINDY JOB#: [id number] CC:
--- NOTE | 2018-02-05 22:59 | Consultation ---
DATE OF CONSULTATION: 02/05/2018 CARDIOLOGY CONSULTATION CONSULTING PHYSICIAN: Emmanuel Edgar M.D. REFERRING PHYSICIAN: Jorge Graf M.D. REASON FOR CONSULTATION: Management of hypertension and atrial fibrillation. HISTORY OF PRESENT ILLNESS: The patient is an 82-year-old lady, who was discharged just less than 2 weeks ago. The patient has history of hypertension and paroxysmal atrial fibrillation, for which I evaluated her on the previous admission. At that time, she had an echocardiogram that showed normal left ventricular systolic function. The patient also has history of dysphagia, status post G-tube placement, had a recent aspiration pneumonia and sepsis as well as dehydration with hypernatremia. The patient also has sacral decubitus. The patient was brought from [facility] for low oxygen saturation of fever and noted to have UTI. The patient also has stage III sacral decubitus. The patient was placed on non-rebreather and subsequently on BiPAP and was started on IV antibiotics. At the time of my evaluation, the patient is in intensive care and is nonverbal, on BiPAP, is unable to provide any information. PAST MEDICAL HISTORY: 1. Hypertension. 2. Diabetes. 3. Paroxysmal atrial fibrillation. 4. Dementia. 5. Stage III sacral decubitus. 6. COPD. 7. Status post PEG placement. 8. Aphasia and contractures. ALLERGIES: No known drug allergies. FAMILY HISTORY: Noncontributory. REVIEW OF SYSTEMS: Cannot be obtained. PHYSICAL EXAMINATION: VITAL SIGNS: Blood pressure is 150/87, pulse 98, respirations 18, and she is afebrile. HEAD AND NECK: No JVD. She has a BiPAP on. LUNGS: Coarse rhonchi bilaterally. CARDIOVASCULAR: Regular, tachycardic. S1 and S2 with no gallop or murmur. ABDOMEN: Soft and status post G-tube. EXTREMITIES: No pitting edema. She has sacral decubitus. LABORATORY AND DIAGNOSTIC DATA: Her EKG showed sinus tachycardia with left ventricular hypertrophy. Her labs show white count of 15.4, hemoglobin of 14, hematocrit of 44.7, and platelet count is 324. Sodium 154, potassium 4.6, BUN of 29, creatinine of 0.6, and glucose of 151. Her troponin is negative. ASSESSMENT AND PLAN: 1. Paroxysmal atrial fibrillation. Continue digoxin 0.125 mg daily. The patient currently in sinus rhythm. Hold off on anticoagulation. We will get digoxin level for further evaluation and management. Her echocardiogram reveals normal left ventricular systolic function. 2. Hypertension. Hold off on antihypertensives at this time in view of patient's sepsis and risk of septic shock. 3. Respiratory failure and sepsis, on BiPAP as well as vancomycin and Zosyn. 4. Diabetes, on insulin. 5. Dementia. 6. Dysphagia, status post PEG placement. 7. Sacral decubitus stage III. The patient was evaluated by Dr. Austin. 8. History of stroke with aphasia and contractures. Thank you very much, Dr. Graf, for allowing me to participate in the care of this patient. Please do not hesitate to contact me for any questions regarding my evaluation. Emmanuel Edgar M.D. DR: TIAN JOB#: [id number] CC:
[2018-02-05] MEDS: Morphine Sulfate 2mg/ml Inj IVP PRN (23:26)
[2018-02-06] VITALS (24 sets, daily range): BP systolic 112–160; BP diastolic 46–91
[2018-02-06] MEDS: Vancomycin 500mg/D5W 110ml IVPB SCH ×2 (02:32)
[2018-02-06] MEDS: Piperacillin/Tazobactam 3.375 GM in D5W 110 ML IVPB SCH ×2 (03:00→15:17)
[2018-02-06] MEDS: NovoLOG Insulin Flexpen SUBQ SCH ×4 (05:58→21:18)
[2018-02-06] MEDS: Ascorbic Acid 500mg tab GT SCH (08:51)
[2018-02-06] MEDS: Digoxin 0.125mg tab GT SCH (08:51)
[2018-02-06] MEDS: Enoxaparin 30mg Inj SUBQ SCH (08:54)
--- NOTE | 2018-02-06 09:05 | Nephrology Progress Note ---
Assessment/Plan Assessment/Plan 1. Sepsis- HCAP and UTI - Abx per ID mgmt 2. Scral Decub- appreciate Gen surgery evaluation and management 3. Hypernatremia- check am Labs and add free water thru PEG 4. Resp FL- of BiPAP. Monitor on NC oxygen 5. AFib- on digoxin, appreciate cardiology assistance 6. DVT prophylaxis- lovenox Subjective Date patient seen: Feb 06, 2018 Time patient seen: 08:58 ROS Limited/Unobtainable: Yes Allergies: Coded Allergies: No Known Allergies (Verified , 03/10/07) All Systems: reviewed and negative except above Subjective Patient off BiPAP. Improved Objective Last 24 Hour Vital Signs Date Time Temp Pulse Resp B/P (MAP) Pulse Ox O2 Delivery O2 Flow Rate FiO2 02/06/18 08:51 99 02/06/18 08:00 96 02/06/18 08:00 99.0 94 25 125/69 96 Nasal Cannula 4.0 99.0 02/06/18 07:00 93 25 127/71 93 Nasal Cannula 4.0 02/06/18 06:00 90 25 127/75 93 Nasal Cannula 4.0 02/06/18 05:29 106 30 97 Facial 35 02/06/18 05:00 90 25 118/67 98 Bi-pap 35 02/06/18 04:00 97 02/06/18 04:00 99.0 97 25 115/77 98 Bi-pap 35 99.0 02/06/18 04:00 35 02/06/18 03:19 108 30 98 Facial 35 02/06/18 03:00 100 25 115/77 97 Bi-pap 35 02/06/18 02:00 102 26 142/91 96 Bi-pap 35 02/06/18 01:20 101 28 95 Facial 35 02/06/18 01:00 102 26 112/71 96 Bi-pap 35 02/06/18 00:02 98.7 02/06/18 00:00 108 02/06/18 00:00 35 02/06/18 00:00 99.2 102 28 127/65 95 Bi-pap 30 99.2 02/05/18 23:27 106 33 93 Facial 35 02/05/18 23:26 98.7 02/05/18 23:00 103 26 153/73 96 Bi-pap 30 02/05/18 22:00 100 21 136/94 96 Bi-pap 30 02/05/18 21:00 100 21 143/84 96 Bi-pap 30 02/05/18 20:49 103 31 93 Facial 35 02/05/18 20:00 30 02/05/18 20:00 98.7 111 26 121/69 99 Bi-pap 30 98.7 02/05/18 20:00 108 02/05/18 19:30 40 02/05/18 19:29 107 31 98 Facial 30 02/05/18 19:00 99 24 126/72 99 Bi-pap 40 02/05/18 18:00 99 31 101/51 99 Bi-pap 40 02/05/18 17:01 106 35 97 Facial 40 02/05/18 17:00 99.0 105 24 120/74 96 Bi-pap 40 99.0 02/05/18 16:00 40 02/05/18 16:00 98 02/05/18 16:00 98 28 150/87 98 Bi-pap 40 02/05/18 15:00 108 24 142/88 97 Bi-pap 40 02/05/18 14:32 99 33 98 Facial 40 02/05/18 14:01 95 30 141/77 98 Bi-pap 50 02/05/18 13:00 102 9 135/85 97 Bi-pap 50 02/05/18 12:43 103 31 99 Facial 50 02/05/18 12:00 100 02/05/18 12:00 98.8 98 26 147/80 100 Bi-pap 100 98.8 02/05/18 12:00 95 02/05/18 11:00 109 20 159/109 99 Bi-pap 100 02/05/18 10:08 112 35 97 Facial 100 02/05/18 10:00 112 22 152/75 98 Non-Rebreather 15.0 02/05/18 09:00 117 23 155/103 92 Non-Rebreather 15.0 Intake and Output 02/05/18 02/06/18 19:00 07:00 Intake Total 457.5 ml 580 ml Output Total 545 ml 390 ml Balance -87.5 ml 190 ml Free Water 100 ml IV Total 137.5 ml Tube Feeding 320 ml 480 ml Output Urine Total 545 ml 390 ml # Bowel Movements 1 1 Laboratory Tests 02/05/18 09:02: Arterial Blood pH 7.440, Arterial Blood Partial Pressure CO2 40.6, Arterial Blood Partial Pressure O2 58.7L, Arterial Blood HCO3 27.2H, Arterial Blood Oxygen Saturation 90.2L, Arterial Blood Base Excess 2.9, Kang Test Positive 02/05/18 12:12: Arterial Blood pH 7.410, Arterial Blood Partial Pressure CO2 49.2H, Arterial Blood Partial Pressure O2 237.0H, Arterial Blood HCO3 31.1H, Arterial Blood Oxygen Saturation 99.3H, Arterial Blood Base Excess 5.6, Kang Test Positive 02/06/18 04:00: Arterial Blood pH 7.480H, Arterial Blood Partial Pressure CO2 41.8, Arterial Blood Partial Pressure O2 40.8*L, Arterial Blood HCO3 30.7H, Arterial Blood Oxygen Saturation 77.0L, Arterial Blood Base Excess 6.7, Kang Test Positive 02/06/18 05:52: Troponin I 0.009, Digoxin Level < 0.3L Height (Feet): 4 Height (Inches): 0.00 Weight (Pounds): 84 General Appearance: no apparent distress, confused EENT: normal ENT inspection Neck: normal alignment, supple Cardiovascular: normal rate Respiratory/Chest: lungs clear Abdomen: non tender, soft Edema: no edema noted Arm (L), no edema noted Arm (R), no edema noted Leg (L), no edema noted Leg (R), no edema noted Pedal (L), no edema noted Pedal (R), no edema noted Generalized Jorge Graf M.D. Feb 06, 2018 09:05
[2018-02-06 09:14] LABS: BASOPHILS % (AUTO) 0.5 % (0.0-2.0); HEMOGLOBIN 12.7 G/DL (12.0-16.0); LYMPHOCYTES % (AUTO) 16.6 % (20.0-45.0); MEAN CORPUSCULAR VOLUME 89 FL (80-99); MONOCYTES % (AUTO) 4.2 % (1.0-10.0); NEUTROPHILS % (AUTO) 78.7 % (45.0-75.0); PLATELET COUNT 334 K/UL (150-450); RED BLOOD COUNT 4.73 M/UL (4.20-5.40); RED CELL DISTRIBUTION WIDTH 16.8 % (11.6-14.8); WHITE BLOOD COUNT 13.4 K/UL (4.8-10.8)
--- NOTE | 2018-02-06 09:21 | Pulmonology Progress Note ---
Assessment/Plan Assessment/Plan IMPRESSION: 1. Probable pneumonia. CXR difficult to interpret due to positioning. 2. Respiratory failure, improved; needs to go back on BiPAP 3. Hypertension. 4. Diabetes mellitus. DISCUSSION: 1. Continue BiPAP 2. Reviewed ABG. 3. Agree with antibiotics. 4. I will follow carefully as respiratory operational risk consultant. 5. DVT and GI prophylaxes. Subjective Interval Events: Off biPAP but hypoxic this morning; remains in ICU Constitutional: Reports: no symptoms HEENT: Repors: no symptoms Respiratory: Reports: no symptoms Cardiovascular: Reports: no symptoms Gastrointestinal/Abdominal: Reports: no symptoms Genitourinary: Reports: no symptoms Allergies: Coded Allergies: No Known Allergies (Verified , 03/10/07) Objective Last 24 Hour Vital Signs Date Time Temp Pulse Resp B/P (MAP) Pulse Ox O2 Delivery O2 Flow Rate FiO2 02/06/18 09:00 95 25 130/80 84 Venturi Mask 40 02/06/18 08:51 99 02/06/18 08:00 96 02/06/18 08:00 99.0 94 25 125/69 96 Nasal Cannula 4.0 99.0 02/06/18 07:00 93 25 127/71 93 Nasal Cannula 4.0 02/06/18 06:00 90 25 127/75 93 Nasal Cannula 4.0 02/06/18 05:29 106 30 97 Facial 35 02/06/18 05:00 90 25 118/67 98 Bi-pap 35 02/06/18 04:00 97 02/06/18 04:00 99.0 97 25 115/77 98 Bi-pap 35 99.0 02/06/18 04:00 35 02/06/18 03:19 108 30 98 Facial 35 02/06/18 03:00 100 25 115/77 97 Bi-pap 35 02/06/18 02:00 102 26 142/91 96 Bi-pap 35 02/06/18 01:20 101 28 95 Facial 35 02/06/18 01:00 102 26 112/71 96 Bi-pap 35 02/06/18 00:02 98.7 02/06/18 00:00 108 02/06/18 00:00 35 02/06/18 00:00 99.2 102 28 127/65 95 Bi-pap 30 99.2 02/05/18 23:27 106 33 93 Facial 35 02/05/18 23:26 98.7 02/05/18 23:00 103 26 153/73 96 Bi-pap 30 02/05/18 22:00 100 21 136/94 96 Bi-pap 30 02/05/18 21:00 100 21 143/84 96 Bi-pap 30 02/05/18 20:49 103 31 93 Facial 35 02/05/18 20:00 30 02/05/18 20:00 98.7 111 26 121/69 99 Bi-pap 30 98.7 02/05/18 20:00 108 02/05/18 19:30 40 02/05/18 19:29 107 31 98 Facial 30 02/05/18 19:00 99 24 126/72 99 Bi-pap 40 02/05/18 18:00 99 31 101/51 99 Bi-pap 40 02/05/18 17:01 106 35 97 Facial 40 02/05/18 17:00 99.0 105 24 120/74 96 Bi-pap 40 99.0 02/05/18 16:00 40 02/05/18 16:00 98 02/05/18 16:00 98 28 150/87 98 Bi-pap 40 02/05/18 15:00 108 24 142/88 97 Bi-pap 40 02/05/18 14:32 99 33 98 Facial 40 02/05/18 14:01 95 30 141/77 98 Bi-pap 50 02/05/18 13:00 102 9 135/85 97 Bi-pap 50 02/05/18 12:43 103 31 99 Facial 50 02/05/18 12:00 100 02/05/18 12:00 98.8 98 26 147/80 100 Bi-pap 100 98.8 02/05/18 12:00 95 02/05/18 11:00 109 20 159/109 99 Bi-pap 100 02/05/18 10:08 112 35 97 Facial 100 02/05/18 10:00 112 22 152/75 98 Non-Rebreather 15.0 Intake and Output 02/05/18 02/06/18 19:00 07:00 Intake Total 457.5 ml 580 ml Output Total 545 ml 390 ml Balance -87.5 ml 190 ml Free Water 100 ml IV Total 137.5 ml Tube Feeding 320 ml 480 ml Output Urine Total 545 ml 390 ml # Bowel Movements 1 1 General Appearance: no acute distress HEENT: normocephalic Respiratory/Chest: chest wall non-tender, lungs clear Cardiovascular: normal peripheral pulses, normal rate Abdomen: normal bowel sounds, soft, non tender Microbiology Date/Time Source Procedure Growth Status 02/05/18 16:35 Sputum Expectorated Gram Stain - Final Resulted 02/05/18 16:35 Sputum Expectorated Sputum Culture - Preliminary NO GROWTH Resulted 02/05/18 04:40 Sacral Wound Gram Stain - Final Resulted 02/05/18 04:40 Wound Culture - Preliminary Gram Negative Rogelio Resulted 02/05/18 02:20 Rectum VRE Culture - Final Enterococcus Faecium - Vre Complete Laboratory Tests 02/05/18 12:12: Arterial Blood pH 7.410, Arterial Blood Partial Pressure CO2 49.2H, Arterial Blood Partial Pressure O2 237.0H, Arterial Blood HCO3 31.1H, Arterial Blood Oxygen Saturation 99.3H, Arterial Blood Base Excess 5.6, Kang Test Positive 02/06/18 04:00: Arterial Blood pH 7.480H, Arterial Blood Partial Pressure CO2 41.8, Arterial Blood Partial Pressure O2 40.8*L, Arterial Blood HCO3 30.7H, Arterial Blood Oxygen Saturation 77.0L, Arterial Blood Base Excess 6.7, Kang Test Positive 02/06/18 05:52: White Blood Count 13.4H, Red Blood Count 4.73, Hemoglobin 12.7, Hematocrit 42.0 , Mean Corpuscular Volume 89, Mean Corpuscular Hemoglobin 26.9L, Mean Corpuscular Hemoglobin Concent 30.2L, Red Cell Distribution Width 16.8H, Platelet Count 334, Mean Platelet Volume 9.2, Neutrophils (%) (Auto) 78.7H, Lymphocytes (%) (Auto) 16.6L, Monocytes (%) (Auto) 4.2, Eosinophils (%) (Auto) 0.0, Basophils (%) (Auto) 0.5, Sodium Level [Pending], Potassium Level [Pending] , Chloride Level [Pending], Carbon Dioxide Level [Pending], Blood Urea Nitrogen [Pending], Creatinine [Pending], Estimat Glomerular Filtration Rate [Pending], Glucose Level [Pending], Calcium Level [Pending], Troponin I 0.009, Digoxin Level < 0.3L Current Medications Medications (Trade) Dose Ordered Sig/Rosetta Route PRN Reason Start Time Stop Time Status Last Admin Dose Admin Ascorbic Acid (Vitamin C) 500 mg DAILY GT 02/05/18 09:00 03/07/18 08:59 02/06/18 08:51 Dextrose (Dextrose 50%) 25 ml STAT PRN IV Hypoglycemia 02/05/18 04:00 03/07/18 03:59 Dextrose (Dextrose 50%) 50 ml STAT PRN IV Hypoglycemia 02/05/18 04:00 03/07/18 03:59 Digoxin (Lanoxin) 0.125 mg DAILY GT 02/05/18 09:00 03/07/18 08:59 02/06/18 08:51 Enoxaparin Sodium (Lovenox) 30 mg Q24H SUBQ 02/05/18 09:00 03/07/18 08:59 02/06/18 08:54 Insulin Aspart (NovoLOG) BEFORE MEALS AND HS SUBQ 02/05/18 06:30 03/07/18 06:29 02/06/18 05:58 Morphine Sulfate (Morphine Sulfate) 0.5 mg Q4H PRN IVP For Pain 02/05/18 08:15 02/12/18 08:14 02/05/18 23:26 Piperacillin Sod/ Tazobactam Sod 3.375 gm/Dextrose 110 ml @ 27.5 mls/hr Q12HR@0300,1500 IVPB 02/05/18 15:00 02/12/18 14:59 02/06/18 03:00 Vancomycin HCl (Vanco rx to dose) 1 ea DAILY PRN MISC Per rx protocol 02/05/18 14:00 03/07/18 13:59 Vancomycin HCl 500 mg/Dextrose 110 ml @ 110 mls/hr Q24H IVPB 02/06/18 02:00 02/11/18 01:59 02/06/18 02:32 Jan Sawant MD Feb 06, 2018 09:21
[2018-02-06 09:23] LABS: ANION GAP 11 mmol/L (5-15); BLOOD UREA NITROGEN 34 mg/dL (7-18); CALCIUM 9.3 MG/DL (8.5-10.1); CARBON DIOXIDE 29 MMOL/L (21-32); CHLORIDE 119 MMOL/L (98-107); CREATININE 0.7 MG/DL (0.55-1.30); POTASSIUM 3.3 MMOL/L (3.5-5.1); SODIUM 159 MMOL/L (136-145)
[2018-02-06] MEDS ORDERED: Isovue-300 100ml vial INJ PRN (10:30)
--- NOTE | 2018-02-06 14:36 | Cardiac Electrophysiology PN ---
Assessment/Plan Assessment/Plan 1. Paroxysmal atrial fibrillation. Continue digoxin 0.125 mg daily. The patient currently in sinus rhythm. Hold off on anticoagulation. Her echocardiogram reveals normal left ventricular systolic function. 2. Hypertension. Hold off on antihypertensives at this time in view of patient's sepsis and risk of septic shock. 3. Respiratory failure and sepsis, off BiPAP now. On vancomycin and Zosyn. 4. Diabetes, on insulin. 5. Dementia. 6. Dysphagia, status post PEG placement. 7. Sacral decubitus stage III. FU by Dr. Austin. 8. History of stroke with aphasia and contractures. Subjective Subjective No CP or SOB. Objective Last 24 Hour Vital Signs Date Time Temp Pulse Resp B/P (MAP) Pulse Ox O2 Delivery O2 Flow Rate FiO2 02/06/18 14:00 96 20 132/67 95 Nasal Cannula 2.0 02/06/18 13:00 93 20 132/72 96 Nasal Cannula 2.0 02/06/18 12:00 98.9 100 24 132/72 98 Bi-pap 40 98.9 02/06/18 12:00 9 02/06/18 11:27 101 32 96 Facial 35 02/06/18 11:00 106 23 134/63 91 Venturi Mask 40 02/06/18 10:00 107 25 114/46 91 Venturi Mask 40 02/06/18 09:00 95 25 130/80 84 Venturi Mask 40 02/06/18 08:51 99 02/06/18 08:00 96 02/06/18 08:00 99.0 94 25 125/69 96 Nasal Cannula 4.0 99.0 02/06/18 07:00 93 25 127/71 93 Nasal Cannula 4.0 02/06/18 06:00 90 25 127/75 93 Nasal Cannula 4.0 02/06/18 05:29 106 30 97 Facial 35 02/06/18 05:00 90 25 118/67 98 Bi-pap 35 02/06/18 04:00 97 02/06/18 04:00 99.0 97 25 115/77 98 Bi-pap 35 99.0 02/06/18 04:00 35 02/06/18 03:19 108 30 98 Facial 35 02/06/18 03:00 100 25 115/77 97 Bi-pap 35 02/06/18 02:00 102 26 142/91 96 Bi-pap 35 02/06/18 01:20 101 28 95 Facial 35 02/06/18 01:00 102 26 112/71 96 Bi-pap 35 02/06/18 00:02 98.7 02/06/18 00:00 108 02/06/18 00:00 35 02/06/18 00:00 99.2 102 28 127/65 95 Bi-pap 30 99.2 02/05/18 23:27 106 33 93 Facial 35 02/05/18 23:26 98.7 02/05/18 23:00 103 26 153/73 96 Bi-pap 30 02/05/18 22:00 100 21 136/94 96 Bi-pap 30 02/05/18 21:00 100 21 143/84 96 Bi-pap 30 02/05/18 20:49 103 31 93 Facial 35 02/05/18 20:00 30 02/05/18 20:00 98.7 111 26 121/69 99 Bi-pap 30 98.7 02/05/18 20:00 108 02/05/18 19:30 40 02/05/18 19:29 107 31 98 Facial 30 02/05/18 19:00 99 24 126/72 99 Bi-pap 40 02/05/18 18:00 99 31 101/51 99 Bi-pap 40 02/05/18 17:01 106 35 97 Facial 40 02/05/18 17:00 99.0 105 24 120/74 96 Bi-pap 40 99.0 02/05/18 16:00 40 02/05/18 16:00 98 02/05/18 16:00 98 28 150/87 98 Bi-pap 40 02/05/18 15:00 108 24 142/88 97 Bi-pap 40 Intake and Output 02/05/18 02/06/18 19:00 07:00 Intake Total 457.5 ml 580 ml Output Total 545 ml 390 ml Balance -87.5 ml 190 ml Free Water 100 ml IV Total 137.5 ml Tube Feeding 320 ml 480 ml Output Urine Total 545 ml 390 ml # Bowel Movements 1 1 Laboratory Tests Test 02/06/18 04:00 02/06/18 05:52 Arterial Blood pH 7.480 (7.350-7.450) Arterial Blood Partial Pressure CO2 41.8 mmHg (35.0-45.0) Arterial Blood Partial Pressure O2 40.8 mmHg (75.0-100.0) Arterial Blood HCO3 30.7 mmol/L (22.0-26.0) H Arterial Blood Oxygen Saturation 77.0 % (92.0-98.0) L Arterial Blood Base Excess 6.7 Kang Test Positive White Blood Count 13.4 K/UL (4.8-10.8) H Red Blood Count 4.73 M/UL (4.20-5.40) Hemoglobin 12.7 G/DL (12.0-16.0) Hematocrit 42.0 % (37.0-47.0) Mean Corpuscular Volume 89 FL (80-99) Mean Corpuscular Hemoglobin 26.9 PG (27.0-31.0) L Mean Corpuscular Hemoglobin Concent 30.2 G/DL (32.0-36.0) L Red Cell Distribution Width 16.8 % (11.6-14.8) H Platelet Count 334 K/UL (150-450) Mean Platelet Volume 9.2 FL (6.5-10.1) Neutrophils (%) (Auto) 78.7 % (45.0-75.0) H Lymphocytes (%) (Auto) 16.6 % (20.0-45.0) L Monocytes (%) (Auto) 4.2 % (1.0-10.0) Eosinophils (%) (Auto) 0.0 % (0.0-3.0) Basophils (%) (Auto) 0.5 % (0.0-2.0) Sodium Level 159 MMOL/L (136-145) H Potassium Level 3.3 MMOL/L (3.5-5.1) L Chloride Level 119 MMOL/L (98-107) H Carbon Dioxide Level 29 MMOL/L (21-32) Anion Gap 11 mmol/L (5-15) Blood Urea Nitrogen 34 mg/dL (7-18) H Creatinine 0.7 MG/DL (0.55-1.30) Estimat Glomerular Filtration Rate mL/min (>60) Glucose Level 142 MG/DL (74-106) H Calcium Level 9.3 MG/DL (8.5-10.1) Troponin I 0.009 ng/mL (0.000-0.056) Digoxin Level < 0.3 NG/ML (0.9-2.0) L Microbiology Date/Time Source Procedure Growth Status 02/05/18 02:15 Blood Blood Culture - Preliminary NO GROWTH AFTER 24 HOURS Resulted 02/05/18 02:00 Blood Blood Culture - Preliminary NO GROWTH AFTER 24 HOURS Resulted 02/05/18 16:35 Sputum Expectorated Gram Stain - Final Resulted 02/05/18 16:35 Sputum Expectorated Sputum Culture - Preliminary NO GROWTH Resulted 02/05/18 02:15 Urine,Clean Catch Urine Culture - Preliminary Gram Negative Rogelio Resulted 02/05/18 04:40 Sacral Wound Gram Stain - Final Resulted 02/05/18 04:40 Wound Culture - Preliminary Gram Negative Rogelio Resulted 02/05/18 02:20 Rectum VRE Culture - Final Enterococcus Faecium - Vre Complete Objective HEAD AND NECK: No JVD. On Nasal cannula LUNGS: Coarse rhonchi bilaterally. CARDIOVASCULAR: Tachycardic. S1 and S2 with no gallop or murmur. ABDOMEN: Soft and status post G-tube. EXTREMITIES: No pitting edema. She has sacral decubitus. Emmanuel Edgar MD Feb 06, 2018 14:36
--- NOTE | 2018-02-06 21:05 | Infectious Diseases Prog Note ---
Assessment/Plan Problems: (1) HCAP (healthcare-associated pneumonia) Assessment & Plan: complicated with respiratory failure, continue vancomycin and zosyn empiric coverage pending cultures (2) Catheter-associated urinary tract infection Assessment & Plan: S/P sarkar catheter exchange , continue zosyn empiric coverage pending culture (3) Sacral wound Assessment & Plan: continue local wound care and dressing changes as per hospital protocol . already on wide spectrum antibiotics pending culture , recommend wound care consult (4) Sepsis Assessment & Plan: due to the above , will cover her empirically with vancomycin and zosyn pending cultures (5) Acute respiratory failure Assessment & Plan: due to the above, started on BIPAP, pulmonary is following, monitor CXR and ABG Subjective ROS Limited/Unobtainable: Yes Allergies: Coded Allergies: No Known Allergies (Verified , 03/10/07) Subjective she was resting in bed, awake , and comfortable, afebrile, on BIPAP Objective Vital Signs Last 24 Hour Vital Signs Date Time Temp Pulse Resp B/P (MAP) Pulse Ox O2 Delivery O2 Flow Rate FiO2 02/06/18 19:02 96 25 92 02/06/18 19:00 90 26 139/66 95 Nasal Cannula 2.0 02/06/18 18:00 85 26 112/57 99 Nasal Cannula 2.0 02/06/18 17:29 99 34 93 02/06/18 17:00 99 23 140/80 90 Nasal Cannula 2.0 02/06/18 16:00 95 02/06/18 16:00 98.8 95 20 139/60 96 Nasal Cannula 2.0 98.8 02/06/18 15:19 96 30 95 02/06/18 15:00 90 20 120/64 94 Nasal Cannula 2.0 02/06/18 14:00 96 20 132/67 95 Nasal Cannula 2.0 02/06/18 13:00 93 20 132/72 96 Nasal Cannula 2.0 02/06/18 12:00 98.9 100 24 132/72 98 Bi-pap 40 98.9 02/06/18 12:00 96 02/06/18 11:27 101 32 96 Facial 35 02/06/18 11:00 106 23 134/63 91 Venturi Mask 40 02/06/18 10:00 107 25 114/46 91 Venturi Mask 40 6/23/18 09:00 95 25 130/80 84 Venturi Mask 40 02/06/18 08:51 99 02/06/18 08:00 96 02/06/18 08:00 99.0 94 25 125/69 96 Nasal Cannula 4.0 99.0 02/06/18 07:00 93 25 127/71 93 Nasal Cannula 4.0 02/06/18 06:00 90 25 127/75 93 Nasal Cannula 4.0 02/06/18 05:29 106 30 97 Facial 35 02/06/18 05:00 90 25 118/67 98 Bi-pap 35 02/06/18 04:00 97 02/06/18 04:00 99.0 97 25 115/77 98 Bi-pap 35 99.0 02/06/18 04:00 35 02/06/18 03:19 108 30 98 Facial 35 02/06/18 03:00 100 25 115/77 97 Bi-pap 35 02/06/18 02:00 102 26 142/91 96 Bi-pap 35 02/06/18 01:20 101 28 95 Facial 35 02/06/18 01:00 102 26 112/71 96 Bi-pap 35 02/06/18 00:02 98.7 02/06/18 00:00 108 02/06/18 00:00 35 02/06/18 00:00 99.2 102 28 127/65 95 Bi-pap 30 99.2 02/05/18 23:27 106 33 93 Facial 35 02/05/18 23:26 98.7 02/05/18 23:00 103 26 153/73 96 Bi-pap 30 02/05/18 22:00 100 21 136/94 96 Bi-pap 30 Height (Feet): 4 Height (Inches): 0.00 Weight (Pounds): 84 General Appearance: WD/WN, no acute distress HEENT: normocephalic, atraumatic, anicteric, PERRL, supple, no JVD Respiratory/Chest: chest wall non-tender, normal breath sounds, no respiratory distress, no accessory muscle use, decreased breath sounds, crackles/rales Cardiovascular: normal peripheral pulses, normal rate, regular rhythm, no gallop/murmur, no JVD Abdomen: normal bowel sounds, soft, non tender, no organomegaly, non distended , no mass, no scars, other - G tube site looks ok Extremities: no cyanosis, no clubbing Skin: no rash, no lesions, ulcers - sacral and left hip wounds Lymphatic: no neck adenopathy, no groin adenopathy Musculoskeletal: normal muscle bulk, no effusion Microbiology Date/Time Source Procedure Growth Status 02/05/18 02:15 Blood Blood Culture - Preliminary NO GROWTH AFTER 24 HOURS Resulted 02/05/18 02:00 Blood Blood Culture - Preliminary NO GROWTH AFTER 24 HOURS Resulted 02/05/18 16:35 Sputum Expectorated Gram Stain - Final Resulted 02/05/18 16:35 Sputum Expectorated Sputum Culture - Preliminary NO GROWTH Resulted 02/05/18 02:15 Urine,Clean Catch Urine Culture - Preliminary Gram Negative Rogelio Resulted 02/05/18 04:40 Sacral Wound Gram Stain - Final Resulted 02/05/18 04:40 Wound Culture - Preliminary Gram Negative Rogelio Resulted 02/05/18 02:20 Rectum VRE Culture - Final Enterococcus Faecium - Vre Complete Laboratory Tests Test 02/06/18 04:00 02/06/18 05:52 Arterial Blood pH 7.480 (7.350-7.450) Arterial Blood Partial Pressure CO2 41.8 mmHg (35.0-45.0) Arterial Blood Partial Pressure O2 40.8 mmHg (75.0-100.0) Arterial Blood HCO3 30.7 mmol/L (22.0-26.0) H Arterial Blood Oxygen Saturation 77.0 % (92.0-98.0) L Arterial Blood Base Excess 6.7 Kang Test Positive White Blood Count 13.4 K/UL (4.8-10.8) H Red Blood Count 4.73 M/UL (4.20-5.40) Hemoglobin 12.7 G/DL (12.0-16.0) Hematocrit 42.0 % (37.0-47.0) Mean Corpuscular Volume 89 FL (80-99) Mean Corpuscular Hemoglobin 26.9 PG (27.0-31.0) L Mean Corpuscular Hemoglobin Concent 30.2 G/DL (32.0-36.0) L Red Cell Distribution Width 16.8 % (11.6-14.8) H Platelet Count 334 K/UL (150-450) Mean Platelet Volume 9.2 FL (6.5-10.1) Neutrophils (%) (Auto) 78.7 % (45.0-75.0) H Lymphocytes (%) (Auto) 16.6 % (20.0-45.0) L Monocytes (%) (Auto) 4.2 % (1.0-10.0) Eosinophils (%) (Auto) 0.0 % (0.0-3.0) Basophils (%) (Auto) 0.5 % (0.0-2.0) Sodium Level 159 MMOL/L (136-145) H Potassium Level 3.3 MMOL/L (3.5-5.1) L Chloride Level 119 MMOL/L (98-107) H Carbon Dioxide Level 29 MMOL/L (21-32) Anion Gap 11 mmol/L (5-15) Blood Urea Nitrogen 34 mg/dL (7-18) H Creatinine 0.7 MG/DL (0.55-1.30) Estimat Glomerular Filtration Rate mL/min (>60) Glucose Level 142 MG/DL (74-106) H Calcium Level 9.3 MG/DL (8.5-10.1) Troponin I 0.009 ng/mL (0.000-0.056) Digoxin Level < 0.3 NG/ML (0.9-2.0) L Current Medications Medications (Trade) Dose Ordered Sig/Rosteta Route PRN Reason Start Time Stop Time Status Last Admin Dose Admin Ascorbic Acid (Vitamin C) 500 mg DAILY GT 02/05/18 09:00 03/07/18 08:59 02/06/18 08:51 Dextrose (Dextrose 50%) 25 ml STAT PRN IV Hypoglycemia 02/05/18 04:00 03/07/18 03:59 Dextrose (Dextrose 50%) 50 ml STAT PRN IV Hypoglycemia 02/05/18 04:00 03/07/18 03:59 Digoxin (Lanoxin) 0.125 mg DAILY GT 02/05/18 09:00 03/07/18 08:59 02/06/18 08:51 Enoxaparin Sodium (Lovenox) 30 mg Q24H SUBQ 02/05/18 09:00 03/07/18 08:59 02/06/18 08:54 Insulin Aspart (NovoLOG) BEFORE MEALS AND HS SUBQ 02/05/18 06:30 03/07/18 06:29 02/06/18 16:44 Iopamidol (Isovue-300 100ml) 100 ml NOW PRN INJ Radiology Procedure 02/06/18 10:30 02/08/18 10:29 Morphine Sulfate (Morphine Sulfate) 0.5 mg Q4H PRN IVP For Pain 02/05/18 08:15 02/12/18 08:14 02/05/18 23:26 Piperacillin Sod/ Tazobactam Sod 3.375 gm/Dextrose 110 ml @ 27.5 mls/hr Q12HR@0300,1500 IVPB 02/05/18 15:00 02/12/18 14:59 02/06/18 15:17 Vancomycin HCl (Vanco rx to dose) 1 ea DAILY PRN MISC Per rx protocol 02/05/18 14:00 03/07/18 13:59 Vancomycin HCl 500 mg/Dextrose 110 ml @ 110 mls/hr Q24H IVPB 02/06/18 02:00 02/11/18 01:59 02/06/18 02:32 Dom Hoffman M.D. Feb 06, 2018 21:05
[2018-02-07] VITALS (26 sets, daily range): BP systolic 97–167; BP diastolic 49–98
[2018-02-07] MEDS: Morphine Sulfate 2mg/ml Inj IVP PRN (01:33)
[2018-02-07] MEDS: Vancomycin 500mg/D5W 110ml IVPB SCH ×2 (01:38)
[2018-02-07] MEDS: Piperacillin/Tazobactam 3.375 GM in D5W 110 ML IVPB SCH ×2 (03:29→15:15)
[2018-02-07 04:19] LABS: BASOPHILS % (AUTO) 0.5 % (0.0-2.0); EOSINOPHILS % (AUTO) 0.5 % (0.0-3.0); HEMOGLOBIN 12.7 G/DL (12.0-16.0); LYMPHOCYTES % (AUTO) 18.1 % (20.0-45.0); MEAN CORPUSCULAR VOLUME 88 FL (80-99); MONOCYTES % (AUTO) 3.7 % (1.0-10.0); NEUTROPHILS % (AUTO) 77.1 % (45.0-75.0); PLATELET COUNT 369 K/UL (150-450); RED BLOOD COUNT 4.79 M/UL (4.20-5.40); RED CELL DISTRIBUTION WIDTH 16.4 % (11.6-14.8); WHITE BLOOD COUNT 13.8 K/UL (4.8-10.8)
[2018-02-07 04:32] LABS: ANION GAP 7 mmol/L (5-15); BLOOD UREA NITROGEN 32 mg/dL (7-18); CALCIUM 8.9 MG/DL (8.5-10.1); CARBON DIOXIDE 30 MMOL/L (21-32); CHLORIDE 120 MMOL/L (98-107); CREATININE 0.7 MG/DL (0.55-1.30); POTASSIUM 3.6 MMOL/L (3.5-5.1); SODIUM 157 MMOL/L (136-145)
[2018-02-07] MEDS: NovoLOG Insulin Flexpen SUBQ SCH ×4 (06:30→21:59)
[2018-02-07] MEDS: Ascorbic Acid 500mg tab GT SCH (08:43)
[2018-02-07] MEDS: Digoxin 0.125mg tab GT SCH (08:44)
[2018-02-07] MEDS: Enoxaparin 30mg Inj SUBQ SCH (08:46)
--- NOTE | 2018-02-07 09:12 | Nephrology Progress Note ---
Assessment/Plan Assessment/Plan 1. Sepsis- HCAP and UTI - Abx per ID mgmt - CT PE protocol once consent can be obtained 2. Scral Decub- appreciate Gen surgery 3. Hypernatremia- increase free water thru PEG 4. Resp FL- On BiPAP. Monitor on NC oxygen and ABG 5. AFib- on digoxin, appreciate cardiology 6. DVT prophylaxis- lovenox Subjective Date patient seen: Feb 07, 2018 Time patient seen: 09:08 ROS Limited/Unobtainable: Yes Allergies: Coded Allergies: No Known Allergies (Verified , 03/10/07) Subjective Patient back on BiPAP. Stable Objective Last 24 Hour Vital Signs Date Time Temp Pulse Resp B/P (MAP) Pulse Ox O2 Delivery O2 Flow Rate FiO2 02/07/18 09:00 95 25 163/81 100 Bi-pap 35 02/07/18 08:44 92 02/07/18 08:00 98.4 96 21 135/70 98 Bi-pap 35 98.4 02/07/18 08:00 97 02/07/18 07:12 96 28 Bi-pap 35 02/07/18 07:10 103 35 92 Facial 35 02/07/18 07:00 95 24 154/92 97 Bi-pap 35 02/07/18 06:00 96 24 162/91 93 Bi-pap 35 02/07/18 05:20 95 30 98 Facial 35 02/07/18 05:00 96 24 127/77 95 Bi-pap 35 02/07/18 05:00 35 02/07/18 04:00 50 02/07/18 04:00 98.3 91 24 164/96 93 Bi-pap 50 98.3 02/07/18 04:00 91 02/07/18 03:00 96 24 163/87 91 Bi-pap 50 02/07/18 02:47 87 23 97 Facial 35 02/07/18 02:04 98.6 02/07/18 02:00 94 24 164/84 95 Bi-pap 50 02/07/18 01:33 98.6 02/07/18 01:00 93 24 167/82 97 Bi-pap 70 02/07/18 00:36 91 25 94 Facial 35 02/07/18 00:00 98.6 90 25 160/98 95 Bi-pap 60 98.6 02/07/18 00:00 70 02/07/18 00:00 94 02/06/18 23:14 95 22 88 Facial 35 02/06/18 23:00 94 25 151/70 89 Nasal Cannula 2.0 02/06/18 22:00 84 25 160/82 94 Nasal Cannula 2.0 02/06/18 21:04 92 25 Nasal Cannula 2.0 28 02/06/18 21:03 91 26 94 02/06/18 21:00 84 25 120/66 97 Nasal Cannula 2.0 02/06/18 20:00 93 02/06/18 20:00 98.6 94 25 134/60 97 Nasal Cannula 2.0 98.6 02/06/18 19:02 96 25 97 02/06/18 19:00 90 26 139/66 95 Nasal Cannula 2.0 02/06/18 18:00 85 26 112/57 99 Nasal Cannula 2.0 02/06/18 17:29 99 34 93 02/06/18 17:00 99 23 140/80 90 Nasal Cannula 2.0 02/06/18 16:00 95 02/06/18 16:00 98.8 95 20 139/60 96 Nasal Cannula 2.0 98.8 02/06/18 15:19 96 30 95 02/06/18 15:00 90 20 120/64 94 Nasal Cannula 2.0 02/06/18 14:00 96 20 132/67 95 Nasal Cannula 2.0 02/06/18 13:00 93 20 132/72 96 Nasal Cannula 2.0 02/06/18 12:00 98.9 100 24 132/72 98 Bi-pap 40 98.9 02/06/18 12:00 96 02/06/18 11:27 101 32 96 Facial 35 02/06/18 11:00 106 23 134/63 91 Venturi Mask 40 02/06/18 10:00 107 25 114/46 91 Venturi Mask 40 Intake and Output 02/06/18 02/07/18 19:00 07:00 Intake Total 890.0 ml 1170.0 ml Output Total 440 ml 420 ml Balance 450.0 ml 750.0 ml Free Water 200 ml 400 ml IV Total 110.0 ml 220.0 ml Tube Feeding 530 ml 550 ml Other 50 ml Output Urine Total 440 ml 420 ml # Bowel Movements 3 Laboratory Tests 02/07/18 03:50: White Blood Count 13.8H, Red Blood Count 4.79, Hemoglobin 12.7, Hematocrit 42.0 , Mean Corpuscular Volume 88, Mean Corpuscular Hemoglobin 26.5L, Mean Corpuscular Hemoglobin Concent 30.2L, Red Cell Distribution Width 16.4H, Platelet Count 369, Mean Platelet Volume 9.7, Neutrophils (%) (Auto) 77.1H, Lymphocytes (%) (Auto) 18.1L, Monocytes (%) (Auto) 3.7, Eosinophils (%) (Auto) 0.5, Basophils (%) (Auto) 0.5, Sodium Level 157H, Potassium Level 3.6, Chloride Level 120H, Carbon Dioxide Level 30, Anion Gap 7, Blood Urea Nitrogen 32H, Creatinine 0.7, Estimat Glomerular Filtration Rate , Glucose Level 136H, Calcium Level 8.9 Height (Feet): 4 Height (Inches): 0.00 Weight (Pounds): 87 General Appearance: no apparent distress, alert EENT: normal ENT inspection Neck: normal alignment, supple Cardiovascular: normal rate Respiratory/Chest: rhonchi - bilaterally Abdomen: non tender, soft Edema: no edema noted Arm (L), no edema noted Arm (R), no edema noted Leg (L), no edema noted Leg (R), no edema noted Pedal (L), no edema noted Pedal (R), no edema noted Generalized Jorge Graf M.D. Feb 07, 2018 09:12
--- NOTE | 2018-02-07 10:03 | Pulmonology Progress Note ---
Assessment/Plan Assessment/Plan IMPRESSION: 1. Probable pneumonia. CXR difficult to interpret due to positioning. 2. Respiratory failure, improved; needs to go back on BiPAP 3. Hypertension. 4. Diabetes mellitus. DISCUSSION: 1. Continue supp O2 2. Reviewed ABG. 3. Agree with antibiotics. 4. I will follow carefully as respiratory salesforce consultant. 5. DVT and GI prophylaxes. 6. Await CT chest r/o PE Subjective Interval Events: Better; off BiPAP Constitutional: Reports: no symptoms HEENT: Repors: no symptoms Respiratory: Reports: no symptoms Allergies: Coded Allergies: No Known Allergies (Verified , 03/10/07) Objective Last 24 Hour Vital Signs Date Time Temp Pulse Resp B/P (MAP) Pulse Ox O2 Delivery O2 Flow Rate FiO2 02/07/18 09:31 91 145/59 02/07/18 09:15 98 26 96 02/07/18 09:05 92 26 100 Facial 35 02/07/18 09:00 95 25 163/81 100 Bi-pap 35 02/07/18 08:44 92 02/07/18 08:00 98.4 96 21 135/70 98 Bi-pap 35 98.4 02/07/18 08:00 97 02/07/18 07:12 96 28 Bi-pap 35 02/07/18 07:10 103 35 92 Facial 35 02/07/18 07:00 95 24 154/92 97 Bi-pap 35 02/07/18 06:00 96 24 162/91 93 Bi-pap 35 02/07/18 05:20 95 30 98 Facial 35 02/07/18 05:00 96 24 127/77 95 Bi-pap 35 02/07/18 05:00 35 02/07/18 04:00 50 02/07/18 04:00 98.3 91 24 164/96 93 Bi-pap 50 98.3 02/07/18 04:00 91 02/07/18 03:00 96 24 163/87 91 Bi-pap 50 02/07/18 02:47 87 23 97 Facial 35 02/07/18 02:04 98.6 02/07/18 02:00 94 24 164/84 95 Bi-pap 50 02/07/18 01:33 98.6 02/07/18 01:00 93 24 167/82 97 Bi-pap 70 6/24/18 00:36 91 25 94 Facial 35 02/07/18 00:00 98.6 90 25 160/98 95 Bi-pap 60 98.6 02/07/18 00:00 70 02/07/18 00:00 94 02/06/18 23:14 95 22 88 Facial 35 02/06/18 23:00 94 25 151/70 89 Nasal Cannula 2.0 02/06/18 22:00 84 25 160/82 94 Nasal Cannula 2.0 02/06/18 21:04 92 25 Nasal Cannula 2.0 28 02/06/18 21:03 91 26 94 02/06/18 21:00 84 25 120/66 97 Nasal Cannula 2.0 02/06/18 20:00 93 02/06/18 20:00 98.6 94 25 134/60 97 Nasal Cannula 2.0 98.6 02/06/18 19:02 96 25 97 02/06/18 19:00 90 26 139/66 95 Nasal Cannula 2.0 02/06/18 18:00 85 26 112/57 99 Nasal Cannula 2.0 02/06/18 17:29 99 34 93 02/06/18 17:00 99 23 140/80 90 Nasal Cannula 2.0 02/06/18 16:00 95 02/06/18 16:00 98.8 95 20 139/60 96 Nasal Cannula 2.0 98.8 02/06/18 15:19 96 30 95 02/06/18 15:00 90 20 120/64 94 Nasal Cannula 2.0 02/06/18 14:00 96 20 132/67 95 Nasal Cannula 2.0 02/06/18 13:00 93 20 132/72 96 Nasal Cannula 2.0 02/06/18 12:00 98.9 100 24 132/72 98 Bi-pap 40 98.9 02/06/18 12:00 96 02/06/18 11:27 101 32 96 Facial 35 02/06/18 11:00 106 23 134/63 91 Venturi Mask 40 Intake and Output 02/06/18 02/07/18 19:00 07:00 Intake Total 890.0 ml 1170.0 ml Output Total 440 ml 420 ml Balance 450.0 ml 750.0 ml Free Water 200 ml 400 ml IV Total 110.0 ml 220.0 ml Tube Feeding 530 ml 550 ml Other 50 ml Output Urine Total 440 ml 420 ml # Bowel Movements 3 General Appearance: no acute distress HEENT: normocephalic Respiratory/Chest: chest wall non-tender, lungs clear Cardiovascular: normal peripheral pulses Microbiology Date/Time Source Procedure Growth Status 02/05/18 02:15 Blood Blood Culture - Preliminary NO GROWTH AFTER 48 HOURS Resulted 02/05/18 02:00 Blood Blood Culture - Preliminary NO GROWTH AFTER 48 HOURS Resulted 02/05/18 16:35 Sputum Expectorated Gram Stain - Final Complete 02/05/18 16:35 Sputum Expectorated Sputum Culture - Final NORMAL UPPER RESPIRATORY LAITH PRESENT Complete 02/05/18 02:20 Nasal Nares MRSA Culture - Final NO METHICILLIN RESISTANT STAPH AUREUS... Complete 02/05/18 02:15 Urine,Clean Catch Urine Culture - Preliminary Gram Negative Rogelio Resulted 02/05/18 04:40 Sacral Wound Gram Stain - Final Resulted 02/05/18 04:40 Wound Culture - Preliminary Escherichia Coli - Esbl Resulted 02/05/18 02:20 Rectum VRE Culture - Final Enterococcus Faecium - Vre Complete 02/05/18 02:20 Rectum - Final NO CARBAPENEM-RESISTANT ENTEROBACTERI... Complete Laboratory Tests 02/07/18 03:50: White Blood Count 13.8H, Red Blood Count 4.79, Hemoglobin 12.7, Hematocrit 42.0 , Mean Corpuscular Volume 88, Mean Corpuscular Hemoglobin 26.5L, Mean Corpuscular Hemoglobin Concent 30.2L, Red Cell Distribution Width 16.4H, Platelet Count 369, Mean Platelet Volume 9.7, Neutrophils (%) (Auto) 77.1H, Lymphocytes (%) (Auto) 18.1L, Monocytes (%) (Auto) 3.7, Eosinophils (%) (Auto) 0.5, Basophils (%) (Auto) 0.5, Sodium Level 157H, Potassium Level 3.6, Chloride Level 120H, Carbon Dioxide Level 30, Anion Gap 7, Blood Urea Nitrogen 32H, Creatinine 0.7, Estimat Glomerular Filtration Rate , Glucose Level 136H, Calcium Level 8.9 02/07/18 09:20: Arterial Blood pH 7.490H, Arterial Blood Partial Pressure CO2 39.0, Arterial Blood Partial Pressure O2 76.4, Arterial Blood HCO3 29.5H, Arterial Blood Oxygen Saturation 95.6, Arterial Blood Base Excess 5.9, Kang Test Positive Current Medications Medications (Trade) Dose Ordered Sig/Rosetta Route PRN Reason Start Time Stop Time Status Last Admin Dose Admin Amlodipine Besylate (Norvasc) 10 mg DAILY GT 02/07/18 09:30 03/09/18 09:29 02/07/18 09:31 Ascorbic Acid (Vitamin C) 500 mg DAILY GT 02/05/18 09:00 03/07/18 08:59 02/07/18 08:43 Clonidine HCl (Catapres Tab) 0.1 mg Q8H PRN GT SBP >160 02/07/18 09:30 03/09/18 09:29 Dextrose (Dextrose 50%) 25 ml STAT PRN IV Hypoglycemia 02/05/18 04:00 03/07/18 03:59 Dextrose (Dextrose 50%) 50 ml STAT PRN IV Hypoglycemia 02/05/18 04:00 03/07/18 03:59 Digoxin (Lanoxin) 0.125 mg DAILY GT 02/05/18 09:00 03/07/18 08:59 02/07/18 08:44 Enoxaparin Sodium (Lovenox) 30 mg Q24H SUBQ 02/05/18 09:00 03/07/18 08:59 02/07/18 08:46 Insulin Aspart (NovoLOG) BEFORE MEALS AND HS SUBQ 02/05/18 06:30 03/07/18 06:29 02/07/18 06:30 Iopamidol (Isovue-300 100ml) 100 ml NOW PRN INJ Radiology Procedure 02/06/18 10:30 02/08/18 10:29 Morphine Sulfate (Morphine Sulfate) 0.5 mg Q4H PRN IVP For Pain 02/05/18 08:15 02/12/18 08:14 02/07/18 01:33 Piperacillin Sod/ Tazobactam Sod 3.375 gm/Dextrose 110 ml @ 27.5 mls/hr Q12HR@0300,1500 IVPB 02/05/18 15:00 02/12/18 14:59 02/07/18 03:29 Vancomycin HCl (Vanco rx to dose) 1 ea DAILY PRN MISC Per rx protocol 02/05/18 14:00 03/07/18 13:59 Vancomycin HCl 500 mg/Dextrose 110 ml @ 110 mls/hr Q24H IVPB 02/06/18 02:00 02/11/18 01:59 02/07/18 01:38 Jan Sawant MD Feb 07, 2018 10:03
--- NOTE | 2018-02-07 13:49 | Infectious Diseases Prog Note ---
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 was evaluated by general surgery (4) Sepsis Assessment & Plan: due to the above , continue vancomycin and zosyn pending cultures (5) Acute respiratory failure Assessment & Plan: due to the above, on BIPAP, pulmonary is following, monitor CXR and ABG Subjective ROS Limited/Unobtainable: Yes Allergies: Coded Allergies: No Known Allergies (Verified , 03/10/07) Subjective she was resting in bed, awake , and quiet, afebrile, still on BIPAP with less O2 requirement Objective Vital Signs Last 24 Hour Vital Signs Date Time Temp Pulse Resp B/P (MAP) Pulse Ox O2 Delivery O2 Flow Rate FiO2 02/07/18 13:21 82 20 95 02/07/18 13:00 81 25 128/53 95 Venturi Mask 30 02/07/18 12:00 97.7 95 18 160/80 94 Venturi Mask 30 97.7 02/07/18 12:00 93 02/07/18 11:00 95 27 146/77 92 Venturi Mask 30 02/07/18 10:56 100 24 98 02/07/18 10:01 89 25 132/81 92 Venturi Mask 30 02/07/18 09:31 91 145/59 02/07/18 09:15 98 26 96 02/07/18 09:05 92 26 100 Facial 35 02/07/18 09:00 95 25 163/81 100 Bi-pap 35 02/07/18 08:44 92 02/07/18 08:00 98.4 96 21 135/70 98 Bi-pap 35 98.4 02/07/18 08:00 97 02/07/18 07:12 96 28 Bi-pap 35 02/07/18 07:10 103 35 92 Facial 35 02/07/18 07:00 95 24 154/92 97 Bi-pap 35 02/07/18 06:00 96 24 162/91 93 Bi-pap 35 02/07/18 05:20 95 30 98 Facial 35 02/07/18 05:00 96 24 127/77 95 Bi-pap 35 02/07/18 05:00 35 02/07/18 04:00 50 02/07/18 04:00 98.3 91 24 164/96 93 Bi-pap 50 98.3 02/07/18 04:00 91 02/07/18 03:00 96 24 163/87 91 Bi-pap 50 02/07/18 02:47 87 23 97 Facial 35 02/07/18 02:04 98.6 02/07/18 02:00 94 24 164/84 95 Bi-pap 50 02/07/18 01:33 98.6 02/07/18 01:00 93 24 167/82 97 Bi-pap 70 02/07/18 00:36 91 25 94 Facial 35 02/07/18 00:00 98.6 90 25 160/98 95 Bi-pap 60 98.6 02/07/18 00:00 70 02/07/18 00:00 94 02/06/18 23:14 95 22 88 Facial 35 02/06/18 23:00 94 25 151/70 89 Nasal Cannula 2.0 02/06/18 22:00 84 25 160/82 94 Nasal Cannula 2.0 02/06/18 21:04 92 25 Nasal Cannula 2.0 28 02/06/18 21:03 91 26 94 02/06/18 21:00 84 25 120/66 97 Nasal Cannula 2.0 02/06/18 20:00 93 02/06/18 20:00 98.6 94 25 134/60 97 Nasal Cannula 2.0 98.6 02/06/18 19:02 96 25 97 02/06/18 19:00 90 26 139/66 95 Nasal Cannula 2.0 02/06/18 18:00 85 26 112/57 99 Nasal Cannula 2.0 02/06/18 17:29 99 34 93 02/06/18 17:00 99 23 140/80 90 Nasal Cannula 2.0 02/06/18 16:00 95 02/06/18 16:00 98.8 95 20 139/60 96 Nasal Cannula 2.0 98.8 02/06/18 15:19 96 30 95 02/06/18 15:00 90 20 120/64 94 Nasal Cannula 2.0 02/06/18 14:00 96 20 132/67 95 Nasal Cannula 2.0 Height (Feet): 4 Height (Inches): 0.00 Weight (Pounds): 87 General Appearance: WD/WN, no acute distress, cachetic HEENT: normocephalic, atraumatic, anicteric, no JVD Respiratory/Chest: chest wall non-tender, no respiratory distress, no accessory muscle use, decreased breath sounds, crackles/rales Cardiovascular: normal peripheral pulses, normal rate, regular rhythm, no gallop/murmur, no JVD Abdomen: normal bowel sounds, soft, non tender, no organomegaly, non distended , no mass, no scars Extremities: no cyanosis, no clubbing Skin: no rash, no lesions, no ulcers Neurologic/Psychiatric: alert, unresponsiveness Lymphatic: no neck adenopathy, no groin adenopathy Microbiology Date/Time Source Procedure Growth Status 02/05/18 02:15 Blood Blood Culture - Preliminary NO GROWTH AFTER 48 HOURS Resulted 02/05/18 02:00 Blood Blood Culture - Preliminary NO GROWTH AFTER 48 HOURS Resulted 02/05/18 16:35 Sputum Expectorated Gram Stain - Final Complete 02/05/18 16:35 Sputum Expectorated Sputum Culture - Final NORMAL UPPER RESPIRATORY LAITH PRESENT Complete 02/05/18 02:20 Nasal Nares MRSA Culture - Final NO METHICILLIN RESISTANT STAPH AUREUS... Complete 02/05/18 02:15 Urine,Clean Catch Urine Culture - Final Gram Negative Rogelio Complete 02/05/18 04:40 Sacral Wound Gram Stain - Final Resulted 02/05/18 04:40 Wound Culture - Preliminary Escherichia Coli - Esbl Resulted 02/05/18 02:20 Rectum VRE Culture - Final Enterococcus Faecium - Vre Complete 02/05/18 02:20 Rectum - Final NO CARBAPENEM-RESISTANT ENTEROBACTERI... Complete Laboratory Tests Test 02/07/18 03:50 02/07/18 09:20 White Blood Count 13.8 K/UL (4.8-10.8) H Red Blood Count 4.79 M/UL (4.20-5.40) Hemoglobin 12.7 G/DL (12.0-16.0) Hematocrit 42.0 % (37.0-47.0) Mean Corpuscular Volume 88 FL (80-99) Mean Corpuscular Hemoglobin 26.5 PG (27.0-31.0) L Mean Corpuscular Hemoglobin Concent 30.2 G/DL (32.0-36.0) L Red Cell Distribution Width 16.4 % (11.6-14.8) H Platelet Count 369 K/UL (150-450) Mean Platelet Volume 9.7 FL (6.5-10.1) Neutrophils (%) (Auto) 77.1 % (45.0-75.0) H Lymphocytes (%) (Auto) 18.1 % (20.0-45.0) L Monocytes (%) (Auto) 3.7 % (1.0-10.0) Eosinophils (%) (Auto) 0.5 % (0.0-3.0) Basophils (%) (Auto) 0.5 % (0.0-2.0) Sodium Level 157 MMOL/L (136-145) H Potassium Level 3.6 MMOL/L (3.5-5.1) Chloride Level 120 MMOL/L (98-107) H Carbon Dioxide Level 30 MMOL/L (21-32) Anion Gap 7 mmol/L (5-15) Blood Urea Nitrogen 32 mg/dL (7-18) H Creatinine 0.7 MG/DL (0.55-1.30) Estimat Glomerular Filtration Rate mL/min (>60) Glucose Level 136 MG/DL (74-106) H Calcium Level 8.9 MG/DL (8.5-10.1) Arterial Blood pH 7.490 (7.350-7.450) Arterial Blood Partial Pressure CO2 39.0 mmHg (35.0-45.0) Arterial Blood Partial Pressure O2 76.4 mmHg (75.0-100.0) Arterial Blood HCO3 29.5 mmol/L (22.0-26.0) H Arterial Blood Oxygen Saturation 95.6 % (92.0-98.0) Arterial Blood Base Excess 5.9 Kang Test Positive Current Medications Medications (Trade) Dose Ordered Sig/Rosetta Route PRN Reason Start Time Stop Time Status Last Admin Dose Admin Amlodipine Besylate (Norvasc) 10 mg DAILY GT 02/07/18 09:30 03/09/18 09:29 02/07/18 09:31 Ascorbic Acid (Vitamin C) 500 mg DAILY GT 02/05/18 09:00 03/07/18 08:59 02/07/18 08:43 Clonidine HCl (Catapres Tab) 0.1 mg Q8H PRN GT SBP >160 02/07/18 09:30 03/09/18 09:29 Dextrose (Dextrose 50%) 25 ml STAT PRN IV Hypoglycemia 02/05/18 04:00 03/07/18 03:59 Dextrose (Dextrose 50%) 50 ml STAT PRN IV Hypoglycemia 02/05/18 04:00 03/07/18 03:59 Digoxin (Lanoxin) 0.125 mg DAILY GT 02/05/18 09:00 03/07/18 08:59 02/07/18 08:44 Enoxaparin Sodium (Lovenox) 30 mg Q24H SUBQ 02/05/18 09:00 03/07/18 08:59 02/07/18 08:46 Insulin Aspart (NovoLOG) BEFORE MEALS AND HS SUBQ 02/05/18 06:30 03/07/18 06:29 02/07/18 11:36 Iopamidol (Isovue-300 100ml) 100 ml NOW PRN INJ Radiology Procedure 02/06/18 10:30 02/08/18 10:29 Morphine Sulfate (Morphine Sulfate) 0.5 mg Q4H PRN IVP For Pain 02/05/18 08:15 02/12/18 08:14 02/07/18 01:33 Piperacillin Sod/ Tazobactam Sod 3.375 gm/Dextrose 110 ml @ 27.5 mls/hr Q12HR@0300,1500 IVPB 02/05/18 15:00 02/12/18 14:59 02/07/18 03:29 Vancomycin HCl (Vanco rx to dose) 1 ea DAILY PRN MISC Per rx protocol 02/05/18 14:00 03/07/18 13:59 Vancomycin HCl 500 mg/Dextrose 110 ml @ 110 mls/hr Q24H IVPB 02/06/18 02:00 02/11/18 01:59 02/07/18 01:38 Dom Hoffman M.D. Feb 07, 2018 13:49
[2018-02-08] VITALS (24 sets, daily range): BP systolic 79–175; BP diastolic 37–101
[2018-02-08] MEDS ORDERED: Vancomycin 750mg/NS 250ml IVPB SCH (02:00)
[2018-02-08] MEDS: Piperacillin/Tazobactam 3.375 GM in D5W 110 ML IVPB SCH ×3 (03:00→19:17)
[2018-02-08 06:12] LABS: ANION GAP 6 mmol/L (5-15); BLOOD UREA NITROGEN 37 mg/dL (7-18); CALCIUM 8.6 MG/DL (8.5-10.1); CARBON DIOXIDE 28 MMOL/L (21-32); CHLORIDE 115 MMOL/L (98-107); CREATININE 0.5 MG/DL (0.55-1.30); SODIUM 149 MMOL/L (136-145)
[2018-02-08] MEDS: NovoLOG Insulin Flexpen SUBQ SCH ×3 (06:16→16:00)
[2018-02-08 06:29] LABS: POTASSIUM 5.2 MMOL/L (3.5-5.1)
[2018-02-08 08:01] LABS: BASOPHILS % (AUTO) 0.6 % (0.0-2.0); EOSINOPHILS % (AUTO) 1.6 % (0.0-3.0); HEMATOCRIT 39.4 % (37.0-47.0); HEMOGLOBIN 12.6 G/DL (12.0-16.0); LYMPHOCYTES % (AUTO) 17.4 % (20.0-45.0); MEAN CORPUSCULAR VOLUME 86 FL (80-99); MONOCYTES % (AUTO) 4.4 % (1.0-10.0); PLATELET COUNT 364 K/UL (150-450); RED BLOOD COUNT 4.58 M/UL (4.20-5.40); WHITE BLOOD COUNT 13.9 K/UL (4.8-10.8)
--- NOTE | 2018-02-08 08:29 | Nephrology Progress Note ---
Assessment/Plan Assessment/Plan 1. Sepsis- HCAP and UTI, - Abx per ID mgmt - stable 2. Scral Decub- appreciate Gen surgery assistance 3. Hypernatremia- improved with free water thru PEG 4. Resp FL- On face mask. Check ABG 5. AFib- on digoxin, appreciate cardiology 6. DVT prophylaxis- lovenox Subjective Date patient seen: Feb 08, 2018 Time patient seen: 08:22 ROS Limited/Unobtainable: Yes Allergies: Coded Allergies: No Known Allergies (Verified , 03/10/07) Subjective Patient off BiPAP. Check ABG Objective Last 24 Hour Vital Signs Date Time Temp Pulse Resp B/P (MAP) Pulse Ox O2 Delivery O2 Flow Rate FiO2 02/08/18 08:01 101 34 Venturi Mask 14.0 55 02/08/18 07:00 86 29 143/90 100 Bi-pap 35 02/08/18 06:00 97 29 113/66 99 Bi-pap 35 02/08/18 05:45 129 02/08/18 05:30 134 02/08/18 05:10 175 02/08/18 05:00 150 02/08/18 05:00 117 22 175/101 96 Bi-pap 35 02/08/18 04:52 106 36 93 Facial 35 02/08/18 04:00 98.8 110 25 143/80 92 Bi-pap 35 98.8 02/08/18 04:00 96 02/08/18 04:00 35 02/08/18 03:02 106 45 98 Facial 35 02/08/18 03:00 95 29 154/75 96 Bi-pap 35 02/08/18 02:00 91 33 137/73 93 Bi-pap 35 02/08/18 01:02 103 42 100 Facial 35 02/08/18 01:00 98.4 99 24 141/69 95 Bi-pap 35 98.4 02/08/18 00:00 35 02/08/18 00:00 97 27 146/87 88 Bi-pap 35 02/08/18 00:00 105 02/07/18 23:20 102 37 94 Facial 35 02/07/18 23:00 118 25 121/92 91 Bi-pap 35 02/07/18 22:00 105 21 142/77 95 Bi-pap 35 02/07/18 21:12 120 39 88 Facial 35 02/07/18 21:00 100 24 117/81 96 Bi-pap 35 02/07/18 20:00 100 02/07/18 20:00 35 02/07/18 20:00 98.3 104 24 128/84 89 Bi-pap 35 98.3 02/07/18 19:02 100 26 123/68 96 Bi-pap 35 02/07/18 19:00 100 26 123/68 96 Venturi Mask 30 02/07/18 19:00 35 02/07/18 18:58 101 30 Bi-pap 35 02/07/18 18:58 109 40 95 Facial 35 02/07/18 18:01 99 29 149/85 91 Venturi Mask 30 02/07/18 17:18 101 22 98 02/07/18 17:01 100 29 112/56 91 Venturi Mask 30 02/07/18 16:00 104 02/07/18 16:00 98.4 99 25 123/66 97 Venturi Mask 30 98.4 02/07/18 15:00 100 19 150/79 94 Venturi Mask 30 02/07/18 14:55 97 21 92 02/07/18 14:00 89 26 97/49 91 Venturi Mask 30 02/07/18 13:21 82 20 95 02/07/18 13:00 81 25 128/53 95 Venturi Mask 30 02/07/18 12:00 97.7 95 18 160/80 94 Venturi Mask 30 97.7 02/07/18 12:00 93 02/07/18 12:00 30 02/07/18 11:00 95 27 146/77 92 Venturi Mask 30 02/07/18 10:56 100 24 98 02/07/18 10:01 89 25 132/81 92 Venturi Mask 30 02/07/18 09:31 91 145/59 02/07/18 09:15 98 26 96 02/07/18 09:05 92 26 100 Facial 35 02/07/18 09:00 95 25 163/81 100 Bi-pap 35 02/07/18 08:44 92 Intake and Output 02/07/18 02/08/18 19:00 07:00 Intake Total 1140.0 ml 1277.5 ml Output Total 865 ml 435 ml Balance 275.0 ml 842.5 ml Free Water 400 ml 400 ml IV Total 110.0 ml 277.5 ml Tube Feeding 600 ml 600 ml Other 30 ml Output Urine Total 865 ml 435 ml # Bowel Movements 2 2 Laboratory Tests 02/07/18 09:20: Arterial Blood pH 7.490H, Arterial Blood Partial Pressure CO2 39.0, Arterial Blood Partial Pressure O2 76.4, Arterial Blood HCO3 29.5H, Arterial Blood Oxygen Saturation 95.6, Arterial Blood Base Excess 5.9, Kang Test Positive 02/08/18 00:45: Vancomycin Level Trough 10.3 02/08/18 04:09: Sodium Level 149H, Potassium Level 5.2H, Chloride Level 115H, Carbon Dioxide Level 28, Anion Gap 6, Blood Urea Nitrogen 37H, Creatinine 0.5L, Estimat Glomerular Filtration Rate , Glucose Level 135H, Calcium Level 8.6 02/08/18 06:30: White Blood Count [Pending], Red Blood Count [Pending], Hemoglobin [Pending], Hematocrit [Pending], Mean Corpuscular Volume [Pending], Mean Corpuscular Hemoglobin [Pending], Mean Corpuscular Hemoglobin Concent [Pending], Red Cell Distribution Width [Pending], Platelet Count [Pending], Mean Platelet Volume [ Pending], Neutrophils (%) (Auto) [Pending], Lymphocytes (%) (Auto) [Pending], Monocytes (%) (Auto) [Pending], Eosinophils (%) (Auto) [Pending], Basophils (%) (Auto) [Pending] 02/08/18 08:00: Arterial Blood pH 7.440, Arterial Blood Partial Pressure CO2 47.4H, Arterial Blood Partial Pressure O2 94.6, Arterial Blood HCO3 31.5H, Arterial Blood Oxygen Saturation 97.1, Arterial Blood Base Excess 6.3, Kang Test Positive Height (Feet): 4 Height (Inches): 0.00 Weight (Pounds): 85 General Appearance: no apparent distress, alert EENT: normal ENT inspection Neck: normal alignment, supple Cardiovascular: normal rate, regular rhythm Respiratory/Chest: rhonchi - bilaterally Abdomen: non tender, soft Edema: no edema noted Arm (L), no edema noted Arm (R), no edema noted Leg (L), no edema noted Leg (R), no edema noted Pedal (L), no edema noted Pedal (R), no edema noted Generalized De Jorge Agarwal.D. Feb 08, 2018 08:29
[2018-02-08] MEDS ORDERED: Acetaminophen 650mg/20.3ml GT PRN (08:30)
[2018-02-08] MEDS: Digoxin 0.125mg tab GT SCH (09:19)
[2018-02-08] MEDS: Ascorbic Acid 500mg tab GT SCH (09:20)
[2018-02-08] MEDS: Enoxaparin 30mg Inj SUBQ SCH (09:21)
[2018-02-08] MEDS ORDERED: Morphine Sulfate 2mg/ml Inj IVP PRN (09:30)
--- NOTE | 2018-02-08 10:00 | Pulmonology Progress Note ---
Assessment/Plan Assessment/Plan IMPRESSION: 1. Probable pneumonia. CXR difficult to interpret due to positioning. 2. Respiratory failure, improved; On BiPAP vs face mask o2 3. Hypertension. 4. Diabetes mellitus. DISCUSSION: 1. Continue supp O2 2. Reviewed ABG. 3. Agree with antibiotics. 4. I will follow carefully as respiratory collection systems consultant. 5. DVT and GI prophylaxes. 6. Await CT chest r/o PE Subjective Interval Events: On face mask o2 Constitutional: Reports: no symptoms HEENT: Repors: no symptoms Respiratory: Reports: no symptoms Cardiovascular: Reports: no symptoms Gastrointestinal/Abdominal: Reports: no symptoms Allergies: Coded Allergies: No Known Allergies (Verified , 03/10/07) Objective Last 24 Hour Vital Signs Date Time Temp Pulse Resp B/P (MAP) Pulse Ox O2 Delivery O2 Flow Rate FiO2 02/08/18 09:19 98.7 02/08/18 09:19 101 138/75 02/08/18 09:19 96 02/08/18 08:01 101 34 Venturi Mask 14.0 55 02/08/18 08:00 98.7 107 29 138/75 100 Bi-pap 35 98.7 02/08/18 08:00 108 02/08/18 07:00 86 29 143/90 100 Bi-pap 35 02/08/18 06:00 97 29 113/66 99 Bi-pap 35 02/08/18 05:45 129 02/08/18 05:30 134 02/08/18 05:10 175 02/08/18 05:00 150 02/08/18 05:00 117 22 175/101 96 Bi-pap 35 02/08/18 04:52 106 36 93 Facial 35 02/08/18 04:00 98.8 110 25 143/80 92 Bi-pap 35 98.8 02/08/18 04:00 96 02/08/18 04:00 35 02/08/18 03:02 106 45 98 Facial 35 02/08/18 03:00 95 29 154/75 96 Bi-pap 35 02/08/18 02:00 91 33 137/73 93 Bi-pap 35 02/08/18 01:02 103 42 100 Facial 35 02/08/18 01:00 98.4 99 24 141/69 95 Bi-pap 35 98.4 02/08/18 00:00 35 02/08/18 00:00 97 27 146/87 88 Bi-pap 35 02/08/18 00:00 105 02/07/18 23:20 102 37 94 Facial 35 02/07/18 23:00 118 25 121/92 91 Bi-pap 35 02/07/18 22:00 105 21 142/77 95 Bi-pap 35 02/07/18 21:12 120 39 88 Facial 35 02/07/18 21:00 100 24 117/81 96 Bi-pap 35 02/07/18 20:00 100 02/07/18 20:00 35 02/07/18 20:00 98.3 104 24 128/84 89 Bi-pap 35 98.3 02/07/18 19:02 100 26 123/68 96 Bi-pap 35 02/07/18 19:00 100 26 123/68 96 Venturi Mask 30 02/07/18 19:00 35 02/07/18 18:58 101 30 Bi-pap 35 02/07/18 18:58 109 40 95 Facial 35 02/07/18 18:01 99 29 149/85 91 Venturi Mask 30 02/07/18 17:18 101 22 98 02/07/18 17:01 100 29 112/56 91 Venturi Mask 30 02/07/18 16:00 104 02/07/18 16:00 98.4 99 25 123/66 97 Venturi Mask 30 98.4 02/07/18 15:00 100 19 150/79 94 Venturi Mask 30 02/07/18 14:55 97 21 92 02/07/18 14:00 89 26 97/49 91 Venturi Mask 30 02/07/18 13:21 82 20 95 02/07/18 13:00 81 25 128/53 95 Venturi Mask 30 02/07/18 12:00 97.7 95 18 160/80 94 Venturi Mask 30 97.7 02/07/18 12:00 93 02/07/18 12:00 30 02/07/18 11:00 95 27 146/77 92 Venturi Mask 30 02/07/18 10:56 100 24 98 02/07/18 10:01 89 25 132/81 92 Venturi Mask 30 Intake and Output 18 02/08/18 19:00 07:00 Intake Total 1140.0 ml 1277.5 ml Output Total 865 ml 435 ml Balance 275.0 ml 842.5 ml Free Water 400 ml 400 ml IV Total 110.0 ml 277.5 ml Tube Feeding 600 ml 600 ml Other 30 ml Output Urine Total 865 ml 435 ml # Bowel Movements 2 2 General Appearance: no acute distress HEENT: normocephalic Respiratory/Chest: chest wall non-tender, lungs clear Cardiovascular: normal peripheral pulses, normal rate Microbiology Date/Time Source Procedure Growth Status 02/05/18 16:35 Sputum Expectorated Gram Stain - Final Complete 02/05/18 16:35 Sputum Expectorated Sputum Culture - Final NORMAL UPPER RESPIRATORY LAITH PRESENT Complete Laboratory Tests 02/08/18 00:45: Vancomycin Level Trough 10.3 02/08/18 04:09: Sodium Level 149H, Potassium Level 5.2H, Chloride Level 115H, Carbon Dioxide Level 28, Anion Gap 6, Blood Urea Nitrogen 37H, Creatinine 0.5L, Estimat Glomerular Filtration Rate , Glucose Level 135H, Calcium Level 8.6 02/08/18 06:30: White Blood Count 13.9H, Red Blood Count 4.58, Hemoglobin 12.6, Hematocrit 39.4 , Mean Corpuscular Volume 86, Mean Corpuscular Hemoglobin 27.5, Mean Corpuscular Hemoglobin Concent 31.9L, Red Cell Distribution Width 16.0H, Platelet Count 364, Mean Platelet Volume 9.4, Neutrophils (%) (Auto) 76.0H, Lymphocytes (%) (Auto) 17.4L, Monocytes (%) (Auto) 4.4, Eosinophils (%) (Auto) 1.6, Basophils (%) (Auto) 0.6 02/08/18 08:00: Arterial Blood pH 7.440, Arterial Blood Partial Pressure CO2 47.4H, Arterial Blood Partial Pressure O2 94.6, Arterial Blood HCO3 31.5H, Arterial Blood Oxygen Saturation 97.1, Arterial Blood Base Excess 6.3, Kang Test Positive Current Medications Medications (Trade) Dose Ordered Sig/[place]etta Route PRN Reason Start Time Stop Time Status Last Admin Dose Admin Acetaminophen (Tylenol) 650 mg Q4H PRN GT Mild Pain/Temp > 100.5 02/08/18 08:30 03/10/18 08:29 02/08/18 09:19 Amlodipine Besylate (Norvasc) 10 mg DAILY GT 6/24/18 09:30 03/09/18 09:29 02/08/18 09:19 Ascorbic Acid (Vitamin C) 500 mg DAILY GT 02/05/18 09:00 03/07/18 08:59 02/08/18 09:20 Clonidine HCl (Catapres Tab) 0.1 mg Q8H PRN GT SBP >160 02/07/18 09:30 03/09/18 09:29 Dextrose (Dextrose 50%) 25 ml STAT PRN IV Hypoglycemia 02/05/18 04:00 03/07/18 03:59 Dextrose (Dextrose 50%) 50 ml STAT PRN IV Hypoglycemia 02/05/18 04:00 03/07/18 03:59 Digoxin (Lanoxin) 0.125 mg DAILY GT 02/05/18 09:00 03/07/18 08:59 02/08/18 09:19 Enoxaparin Sodium (Lovenox) 30 mg Q24H SUBQ 02/05/18 09:00 03/07/18 08:59 02/08/18 09:21 Famotidine (Pepcid) 20 mg DAILY GT 02/08/18 09:00 03/10/18 08:59 02/08/18 09:18 Insulin Aspart (NovoLOG) BEFORE MEALS AND HS SUBQ 02/05/18 06:30 03/07/18 06:29 02/08/18 06:16 Iopamidol (Isovue-300 100ml) 100 ml NOW PRN INJ Radiology Procedure 02/06/18 10:30 02/08/18 10:29 Morphine Sulfate (Morphine Sulfate) 0.5 mg Q4H PRN IVP PAIN 4-10 02/08/18 09:30 02/12/18 08:14 Piperacillin Sod/ Tazobactam Sod 3.375 gm/Dextrose 110 ml @ 27.5 mls/hr Q12HR@0300,1500 IVPB 02/05/18 15:00 02/12/18 14:59 02/08/18 03:00 Vancomycin HCl (Vanco rx to dose) 1 ea DAILY PRN MISC Per rx protocol 02/05/18 14:00 03/07/18 13:59 Vancomycin/Sodium Chloride 250 ml @ 166.667 mls/hr Q24H IVPB 02/08/18 02:00 02/13/18 01:59 02/08/18 02:00 Jan Sawant MD Feb 08, 2018 10:00
--- NOTE | 2018-02-08 10:34 | Diagnostic Imaging Report ---
Indication: Abnormal chest sounds Technique: One view of the chest Comparison: 02/05/2018 Findings: Patient is rotated to the left. Generalized mild interstitial prominence is probably on the basis of senescent changes. There is decreased atelectasis or consolidation at the left lung base. The heart size is normal. The aorta is tortuous and calcified Impression: Improvement of left basilar atelectasis or consolidation. No definite acute process currently
--- NOTE | 2018-02-08 12:53 | Infectious Diseases Prog Note ---
Assessment/Plan Problems: (1) HCAP (healthcare-associated pneumonia) Assessment & Plan: complicated with respiratory failure, continue zosyn empiric coverage for 7 days, stop vancomycin , monitor CXR (2) Catheter-associated urinary tract infection Assessment & Plan: S/P sarkar catheter exchange , continue zosyn empiric coverage pending culture (3) Sacral wound Assessment & Plan: colonized with ESBL producing E coli , klebsiella pneumonia and providenciae stuartii . continue local wound care and dressing changes as per hospital protocol . was evaluated by general surgery (4) Sepsis Assessment & Plan: ruled out with negative blood culture , on zosyn pending cultures (5) Acute respiratory failure Assessment & Plan: due to the above, on BIPAP, pulmonary is following, monitor CXR and ABG Subjective ROS Limited/Unobtainable: Yes Allergies: Coded Allergies: No Known Allergies (Verified , 03/10/07) Subjective she was up in bed, comfortable, on BIPAP mask, afebrile, less O2 requirement , hypotensive after she received Lasix Objective Vital Signs Last 24 Hour Vital Signs Date Time Temp Pulse Resp B/P (MAP) Pulse Ox O2 Delivery O2 Flow Rate FiO2 02/08/18 12:00 98.7 96 29 115/43 100 Bi-pap 35 98.7 02/08/18 11:00 119 29 85/61 99 Bi-pap 35 02/08/18 10:30 166/91 02/08/18 10:14 Venturi Mask 14.0 55 02/08/18 10:00 107 33 138/82 83 Bi-pap 35 02/08/18 09:49 98.7 02/08/18 09:19 98.7 02/08/18 09:19 101 138/75 02/08/18 09:19 96 02/08/18 09:00 110 29 156/82 100 Bi-pap 35 02/08/18 08:01 101 34 Venturi Mask 14.0 55 02/08/18 08:00 98.7 107 29 138/75 100 Bi-pap 35 98.7 02/08/18 08:00 98 Venturi Mask 14.0 55 02/08/18 08:00 108 02/08/18 07:00 86 29 143/90 100 Bi-pap 35 02/08/18 06:00 97 29 113/66 99 Bi-pap 35 02/08/18 05:45 129 02/08/18 05:30 134 02/08/18 05:10 175 02/08/18 05:00 150 02/08/18 05:00 117 22 175/101 96 Bi-pap 35 02/08/18 04:52 106 36 93 Facial 35 02/08/18 04:00 98.8 110 25 143/80 92 Bi-pap 35 98.8 02/08/18 04:00 96 02/08/18 04:00 35 02/08/18 03:02 106 45 98 Facial 35 02/08/18 03:00 95 29 154/75 96 Bi-pap 35 02/08/18 02:00 91 33 137/73 93 Bi-pap 35 02/08/18 01:02 103 42 100 Facial 35 02/08/18 01:00 98.4 99 24 141/69 95 Bi-pap 35 98.4 02/08/18 00:00 35 02/08/18 00:00 97 27 146/87 88 Bi-pap 35 02/08/18 00:00 105 02/07/18 23:20 102 37 94 Facial 35 02/07/18 23:00 118 25 121/92 91 Bi-pap 35 02/07/18 22:00 105 21 142/77 95 Bi-pap 35 02/07/18 21:12 120 39 88 Facial 35 02/07/18 21:00 100 24 117/81 96 Bi-pap 35 02/07/18 20:00 100 02/07/18 20:00 35 02/07/18 20:00 98.3 104 24 128/84 89 Bi-pap 35 98.3 02/07/18 19:02 100 26 123/68 96 Bi-pap 35 02/07/18 19:00 100 26 123/68 96 Venturi Mask 30 02/07/18 19:00 35 02/07/18 18:58 101 30 Bi-pap 35 02/07/18 18:58 109 40 95 Facial 35 02/07/18 18:01 99 29 149/85 91 Venturi Mask 30 02/07/18 17:18 101 22 98 02/07/18 17:01 100 29 112/56 91 Venturi Mask 30 02/07/18 16:00 104 02/07/18 16:00 98.4 99 25 123/66 97 Venturi Mask 30 98.4 02/07/18 15:00 100 19 150/79 94 Venturi Mask 30 02/07/18 14:55 97 21 92 02/07/18 14:00 89 26 97/49 91 Venturi Mask 30 02/07/18 13:21 82 20 95 02/07/18 13:00 81 25 128/53 95 Venturi Mask 30 Height (Feet): 4 Height (Inches): 0.00 Weight (Pounds): 85 General Appearance: WD/WN, no acute distress, cachetic HEENT: normocephalic, atraumatic, anicteric, mucous membranes moist Respiratory/Chest: chest wall non-tender, no respiratory distress, no accessory muscle use, decreased breath sounds, crackles/rales Cardiovascular: normal peripheral pulses, normal rate, regular rhythm, no gallop/murmur, no JVD Abdomen: normal bowel sounds, soft, non tender, no organomegaly, non distended , no mass, no scars Genitourinary: normal external genitalia Extremities: no cyanosis, no clubbing Skin: no rash, no lesions, no ulcers Neurologic/Psychiatric: alert, oriented x 3, responsive Lymphatic: no neck adenopathy, no groin adenopathy Musculoskeletal: normal muscle bulk, no effusion Microbiology Date/Time Source Procedure Growth Status 02/05/18 16:35 Sputum Expectorated Gram Stain - Final Complete 02/05/18 16:35 Sputum Expectorated Sputum Culture - Final NORMAL UPPER RESPIRATORY LAITH PRESENT Complete Laboratory Tests Test 02/08/18 00:45 02/08/18 04:09 02/08/18 06:30 02/08/18 08:00 Vancomycin Level Trough 10.3 ug/mL (5.0-12.0) Sodium Level 149 MMOL/L (136-145) H Potassium Level 5.2 MMOL/L (3.5-5.1) H Chloride Level 115 MMOL/L (98-107) H Carbon Dioxide Level 28 MMOL/L (21-32) Anion Gap 6 mmol/L (5-15) Blood Urea Nitrogen 37 mg/dL (7-18) H Creatinine 0.5 MG/DL (0.55-1.30) L Estimat Glomerular Filtration Rate mL/min (>60) Glucose Level 135 MG/DL (74-106) H Calcium Level 8.6 MG/DL (8.5-10.1) White Blood Count 13.9 K/UL (4.8-10.8) H Red Blood Count 4.58 M/UL (4.20-5.40) Hemoglobin 12.6 G/DL (12.0-16.0) Hematocrit 39.4 % (37.0-47.0) Mean Corpuscular Volume 86 FL (80-99) Mean Corpuscular Hemoglobin 27.5 PG (27.0-31.0) Mean Corpuscular Hemoglobin Concent 31.9 G/DL (32.0-36.0) L Red Cell Distribution Width 16.0 % (11.6-14.8) H Platelet Count 364 K/UL (150-450) Mean Platelet Volume 9.4 FL (6.5-10.1) Neutrophils (%) (Auto) 76.0 % (45.0-75.0) H Lymphocytes (%) (Auto) 17.4 % (20.0-45.0) L Monocytes (%) (Auto) 4.4 % (1.0-10.0) Eosinophils (%) (Auto) 1.6 % (0.0-3.0) Basophils (%) (Auto) 0.6 % (0.0-2.0) Arterial Blood pH 7.440 (7.350-7.450) Arterial Blood Partial Pressure CO2 47.4 mmHg (35.0-45.0) H Arterial Blood Partial Pressure O2 94.6 mmHg (75.0-100.0) Arterial Blood HCO3 31.5 mmol/L (22.0-26.0) H Arterial Blood Oxygen Saturation 97.1 % (92.0-98.0) Arterial Blood Base Excess 6.3 Kang Test Positive Current Medications Medications (Trade) Dose Ordered Sig/Rosetta Route PRN Reason Start Time Stop Time Status Last Admin Dose Admin Acetaminophen (Tylenol) 650 mg Q4H PRN GT Mild Pain/Temp > 100.5 02/08/18 08:30 03/10/18 08:29 02/08/18 09:19 Amlodipine Besylate (Norvasc) 10 mg DAILY GT 02/07/18 09:30 03/09/18 09:29 02/08/18 09:19 Ascorbic Acid (Vitamin C) 500 mg DAILY GT 02/05/18 09:00 03/07/18 08:59 02/08/18 09:20 Clonidine HCl (Catapres Tab) 0.1 mg Q8H PRN GT SBP >160 02/07/18 09:30 03/09/18 09:29 02/08/18 10:30 Dextrose (Dextrose 50%) 25 ml STAT PRN IV Hypoglycemia 02/05/18 04:00 03/07/18 03:59 Dextrose (Dextrose 50%) 50 ml STAT PRN IV Hypoglycemia 02/05/18 04:00 03/07/18 03:59 Digoxin (Lanoxin) 0.125 mg DAILY GT 02/05/18 09:00 03/07/18 08:59 02/08/18 09:19 Enoxaparin Sodium (Lovenox) 30 mg Q24H SUBQ 02/05/18 09:00 03/07/18 08:59 02/08/18 09:21 Famotidine (Pepcid) 20 mg DAILY GT 02/08/18 09:00 03/10/18 08:59 02/08/18 09:18 Insulin Aspart (NovoLOG) BEFORE MEALS AND HS SUBQ 02/05/18 06:30 03/07/18 06:29 02/08/18 11:54 Morphine Sulfate (Morphine Sulfate) 0.5 mg Q4H PRN IVP PAIN 4-10 02/08/18 09:30 02/12/18 08:14 Piperacillin Sod/ Tazobactam Sod 3.375 gm/Dextrose 110 ml @ 27.5 mls/hr Q8HR@0330,1130,1930 IVPB 02/08/18 11:30 02/15/18 11:29 02/08/18 11:52 Vancomycin HCl (Vanco rx to dose) 1 ea DAILY PRN MISC Per rx protocol 02/05/18 14:00 03/07/18 13:59 Vancomycin/Sodium Chloride 250 ml @ 166.667 mls/hr Q24H IVPB 02/08/18 02:00 02/13/18 01:59 02/08/18 02:00 Dom Hoffman M.D. Feb 08, 2018 12:53
--- NOTE | 2018-02-08 17:29 | Cardiac Electrophysiology PN ---
Assessment/Plan Assessment/Plan 1. Paroxysmal atrial fibrillation. Continue digoxin 0.125 mg daily. The patient currently in sinus rhythm. Hold off on anticoagulation. Her echocardiogram reveals normal left ventricular systolic function. 2. Hypertension. DC Norvasc. If needed will add Cardizem that helps with atrial fib as well. 3. Respiratory failure and sepsis, off BiPAP On vancomycin and Zosyn. 4. Diabetes, on insulin. 5. Dementia. 6. Dysphagia, status post PEG placement. 7. Sacral decubitus stage III. FU by Dr. Austin. 8. History of stroke with aphasia and contractures. DW RN Subjective Subjective BP dropped after Lasix and Catapres prn for high BP. Vinod developed atrial fib with RVR that spontaneously converted to SR Objective Last 24 Hour Vital Signs Date Time Temp Pulse Resp B/P (MAP) Pulse Ox O2 Delivery O2 Flow Rate FiO2 02/08/18 17:00 98.5 83 27 86/51 97 Nasal Cannula 3.0 98.5 02/08/18 16:00 80 02/08/18 16:00 75 29 104/38 97 Venturi Mask 55 02/08/18 15:00 75 29 104/38 93 Venturi Mask 55 02/08/18 14:00 78 29 86/37 94 Venturi Mask 55 02/08/18 13:00 90 29 95/47 99 Bi-pap 35 02/08/18 12:00 109 02/08/18 12:00 98.7 96 29 115/43 100 Bi-pap 35 98.7 02/08/18 11:00 119 29 85/61 99 Bi-pap 35 02/08/18 10:30 166/91 02/08/18 10:14 Venturi Mask 14.0 55 02/08/18 10:00 107 33 138/82 83 Bi-pap 35 02/08/18 09:49 98.7 02/08/18 09:19 98.7 02/08/18 09:19 101 138/75 02/08/18 09:19 96 02/08/18 09:00 110 29 156/82 100 Bi-pap 35 02/08/18 08:01 101 34 Venturi Mask 14.0 55 02/08/18 08:00 98.7 107 29 138/75 100 Bi-pap 35 98.7 02/08/18 08:00 98 Venturi Mask 14.0 55 02/08/18 08:00 108 02/08/18 07:00 86 29 143/90 100 Bi-pap 35 02/08/18 06:00 97 29 113/66 99 Bi-pap 35 02/08/18 05:45 129 02/08/18 05:30 134 02/08/18 05:10 175 02/08/18 05:00 150 02/08/18 05:00 117 22 175/101 96 Bi-pap 35 02/08/18 04:52 106 36 93 Facial 35 02/08/18 04:00 98.8 110 25 143/80 92 Bi-pap 35 98.8 02/08/18 04:00 96 02/08/18 04:00 35 02/08/18 03:02 106 45 98 Facial 35 02/08/18 03:00 95 29 154/75 96 Bi-pap 35 02/08/18 02:00 91 33 137/73 93 Bi-pap 35 02/08/18 01:02 103 42 100 Facial 35 02/08/18 01:00 98.4 99 24 141/69 95 Bi-pap 35 98.4 02/08/18 00:00 35 02/08/18 00:00 97 27 146/87 88 Bi-pap 35 02/08/18 00:00 105 02/07/18 23:20 102 37 94 Facial 35 02/07/18 23:00 118 25 121/92 91 Bi-pap 35 02/07/18 22:00 105 21 142/77 95 Bi-pap 35 02/07/18 21:12 120 39 88 Facial 35 02/07/18 21:00 100 24 117/81 96 Bi-pap 35 02/07/18 20:00 100 02/07/18 20:00 35 02/07/18 20:00 98.3 104 24 128/84 89 Bi-pap 35 98.3 02/07/18 19:02 100 26 123/68 96 Bi-pap 35 02/07/18 19:00 100 26 123/68 96 Venturi Mask 30 02/07/18 19:00 35 02/07/18 18:58 101 30 Bi-pap 35 02/07/18 18:58 109 40 95 Facial 35 02/07/18 18:01 99 29 149/85 91 Venturi Mask 30 Intake and Output 02/07/18 02/08/18 19:00 07:00 Intake Total 1140.0 ml 1277.5 ml Output Total 865 ml 435 ml Balance 275.0 ml 842.5 ml Free Water 400 ml 400 ml IV Total 110.0 ml 277.5 ml Tube Feeding 600 ml 600 ml Other 30 ml Output Urine Total 865 ml 435 ml # Bowel Movements 2 2 Laboratory Tests Test 02/08/18 00:45 02/08/18 04:09 02/08/18 06:30 02/08/18 08:00 Vancomycin Level Trough 10.3 ug/mL (5.0-12.0) Sodium Level 149 MMOL/L (136-145) H Potassium Level 5.2 MMOL/L (3.5-5.1) H Chloride Level 115 MMOL/L (98-107) H Carbon Dioxide Level 28 MMOL/L (21-32) Anion Gap 6 mmol/L (5-15) Blood Urea Nitrogen 37 mg/dL (7-18) H Creatinine 0.5 MG/DL (0.55-1.30) L Estimat Glomerular Filtration Rate mL/min (>60) Glucose Level 135 MG/DL (74-106) H Calcium Level 8.6 MG/DL (8.5-10.1) White Blood Count 13.9 K/UL (4.8-10.8) H Red Blood Count 4.58 M/UL (4.20-5.40) Hemoglobin 12.6 G/DL (12.0-16.0) Hematocrit 39.4 % (37.0-47.0) Mean Corpuscular Volume 86 FL (80-99) Mean Corpuscular Hemoglobin 27.5 PG (27.0-31.0) Mean Corpuscular Hemoglobin Concent 31.9 G/DL (32.0-36.0) L Red Cell Distribution Width 16.0 % (11.6-14.8) H Platelet Count 364 K/UL (150-450) Mean Platelet Volume 9.4 FL (6.5-10.1) Neutrophils (%) (Auto) 76.0 % (45.0-75.0) H Lymphocytes (%) (Auto) 17.4 % (20.0-45.0) L Monocytes (%) (Auto) 4.4 % (1.0-10.0) Eosinophils (%) (Auto) 1.6 % (0.0-3.0) Basophils (%) (Auto) 0.6 % (0.0-2.0) Arterial Blood pH 7.440 (7.350-7.450) Arterial Blood Partial Pressure CO2 47.4 mmHg (35.0-45.0) H Arterial Blood Partial Pressure O2 94.6 mmHg (75.0-100.0) Arterial Blood HCO3 31.5 mmol/L (22.0-26.0) H Arterial Blood Oxygen Saturation 97.1 % (92.0-98.0) Arterial Blood Base Excess 6.3 Kang Test Positive Objective HEAD AND NECK: No JVD. On Nasal cannula LUNGS: Coarse rhonchi bilaterally. CARDIOVASCULAR: Tachycardic. S1 and S2 with no gallop or murmur. ABDOMEN: Soft and status post G-tube. EXTREMITIES: No pitting edema. She has sacral decubitus. Emmanuel Edgar MD Feb 08, 2018 17:29
[2018-02-09] VITALS (18 sets, daily range): BP systolic 99–160; BP diastolic 49–104
[2018-02-09] MEDS: Piperacillin/Tazobactam 3.375 GM in D5W 110 ML IVPB SCH ×3 (03:37→19:59)
[2018-02-09 06:09] LABS: HEMATOCRIT 43.6 % (37.0-47.0); HEMOGLOBIN 13.7 G/DL (12.0-16.0); MEAN CORPUSCULAR VOLUME 87 FL (80-99); PLATELET COUNT 386 K/UL (150-450); RED CELL DISTRIBUTION WIDTH 16.1 % (11.6-14.8); WHITE BLOOD COUNT 18.1 K/UL (4.8-10.8)
[2018-02-09] MEDS: NovoLOG Insulin Flexpen SUBQ SCH ×5 (06:22→23:08)
[2018-02-09 06:45] LABS: ANION GAP 10 mmol/L (5-15); BLOOD UREA NITROGEN 30 mg/dL (7-18); CALCIUM 8.9 MG/DL (8.5-10.1); CARBON DIOXIDE 31 MMOL/L (21-32); CHLORIDE 113 MMOL/L (98-107); CREATININE 0.8 MG/DL (0.55-1.30); POTASSIUM 2.9 MMOL/L (3.5-5.1); SODIUM 154 MMOL/L (136-145)
--- NOTE | 2018-02-09 08:22 | Nephrology Progress Note ---
Assessment/Plan Assessment/Plan 1. Sepsis- HCAP and UTI, - Abx per ID mgmt 2. Scral Decub- appreciate Gen surgery assistance. Stable 3. Hypernatremia- continue free water thru GTube 4. Resp FL- On face mask. Transfer to [facility] 5. AFib- on digoxin, appreciate cardiology 6. DVT prophylaxis- lovenox 7. Hypokalemia- being replaced Subjective Date patient seen: Feb 09, 2018 Time patient seen: 08:21 ROS Limited/Unobtainable: Yes Allergies: Coded Allergies: No Known Allergies (Verified , 03/10/07) Subjective Patient off BiPAP for past 24 hrs Objective Last 24 Hour Vital Signs Date Time Temp Pulse Resp B/P (MAP) Pulse Ox O2 Delivery O2 Flow Rate FiO2 02/09/18 06:00 98 22 124/68 95 Nasal Cannula 3.0 02/09/18 05:00 102 35 132/57 90 Nasal Cannula 3.0 02/09/18 04:00 104 02/09/18 04:00 98.4 102 33 99/49 97 Nasal Cannula 3.0 98.4 02/09/18 03:00 108 29 104/56 95 Nasal Cannula 3.0 02/09/18 02:00 98 29 103/71 90 Nasal Cannula 3.0 02/09/18 01:00 74 24 104/55 100 Nasal Cannula 3.0 02/09/18 00:00 98.3 78 22 109/58 95 Nasal Cannula 3.0 98.3 02/09/18 00:00 73 02/08/18 23:00 72 35 113/50 99 Nasal Cannula 3.0 02/08/18 22:00 80 28 89/51 100 Nasal Cannula 3.0 02/08/18 21:00 69 33 79/45 94 Nasal Cannula 3.0 02/08/18 20:00 97.9 74 34 94/49 100 Nasal Cannula 3.0 97.9 02/08/18 20:00 77 02/08/18 19:15 Nasal Cannula 3.0 32 02/08/18 19:15 99 Nasal Cannula 3.0 32 02/08/18 19:00 82 33 102/63 94 Nasal Cannula 3.0 02/08/18 18:00 90 24 95/47 97 Nasal Cannula 3.0 02/08/18 17:00 98.5 83 27 86/51 97 Nasal Cannula 3.0 98.5 02/08/18 16:00 80 02/08/18 16:00 75 29 104/38 97 Venturi Mask 55 02/08/18 15:00 75 29 104/38 93 Venturi Mask 55 02/08/18 14:00 78 29 86/37 94 Venturi Mask 55 02/08/18 13:00 90 29 95/47 99 Bi-pap 35 02/08/18 12:00 109 02/08/18 12:00 98.7 96 29 115/43 100 Bi-pap 35 98.7 02/08/18 11:00 119 29 85/61 99 Bi-pap 35 02/08/18 10:30 166/91 02/08/18 10:14 Venturi Mask 14.0 55 02/08/18 10:00 107 33 138/82 83 Bi-pap 35 02/08/18 09:49 98.7 02/08/18 09:19 98.7 02/08/18 09:19 101 138/75 02/08/18 09:19 96 02/08/18 09:00 110 29 156/82 100 Bi-pap 35 Intake and Output 02/08/18 02/09/18 19:00 07:00 Intake Total 1040.00 ml 600 ml Output Total 1100 ml 255 ml Balance -60.00 ml 345 ml Free Water 400 ml 200 ml IV Total 110.00 ml Tube Feeding 530 ml 400 ml Output Urine Total 1100 ml 255 ml # Bowel Movements 4 2 Laboratory Tests 02/09/18 05:03: White Blood Count 18.1H, Red Blood Count 5.00, Hemoglobin 13.7, Hematocrit 43.6 , Mean Corpuscular Volume 87, Mean Corpuscular Hemoglobin 27.5, Mean Corpuscular Hemoglobin Concent 31.5L, Red Cell Distribution Width 16.1H, Platelet Count 386, Mean Platelet Volume 8.7, Neutrophils (%) (Auto) , Lymphocytes (%) (Auto) , Monocytes (%) (Auto) , Eosinophils (%) (Auto) , Basophils (%) (Auto) , Neutrophils % (Manual) [Pending], Lymphocytes % (Manual) [Pending], Platelet Estimate [Pending], Platelet Morphology [Pending], Sodium Level 154H, Potassium Level 2.9L, Chloride Level 113H, Carbon Dioxide Level 31, Anion Gap 10, Blood Urea Nitrogen 30H, Creatinine 0.8#, Estimat Glomerular Filtration Rate , Glucose Level 104, Calcium Level 8.9 Height (Feet): 4 Height (Inches): 0.00 Weight (Pounds): 86 General Appearance: no apparent distress EENT: PERRL/EOMI, normal ENT inspection Neck: normal alignment, supple Cardiovascular: normal rate, regular rhythm Respiratory/Chest: lungs clear, normal breath sounds Abdomen: non tender, soft Edema: no edema noted Arm (L), no edema noted Arm (R), no edema noted Leg (L), no edema noted Leg (R), no edema noted Pedal (L), no edema noted Pedal (R), no edema noted Generalized Jorge Graf M.D. Feb 09, 2018 08:22
[2018-02-09] MEDS: Digoxin 0.125mg tab GT SCH (09:05)
[2018-02-09] MEDS: Ascorbic Acid 500mg tab GT SCH (09:05)
[2018-02-09] MEDS: Enoxaparin 30mg Inj SUBQ SCH (09:08)
--- NOTE | 2018-02-09 09:35 | Pulmonology Progress Note ---
Assessment/Plan Assessment/Plan IMPRESSION: 1. Probable pneumonia. CXR difficult to interpret due to positioning. 2. Respiratory failure, improved; On face mask o2 3. Hypertension. 4. Diabetes mellitus. DISCUSSION: 1. Continue supp O2 2. Reviewed ABG. 3. Agree with antibiotics. 4. I will follow carefully as respiratory human performance consultant. 5. DVT and GI prophylaxes. 6. Await CT chest r/o PE 7. OK to transfer out of ICU Subjective Interval Events: Looking better Constitutional: Reports: no symptoms HEENT: Repors: no symptoms Respiratory: Reports: no symptoms Cardiovascular: Reports: no symptoms Gastrointestinal/Abdominal: Reports: no symptoms Genitourinary: Reports: no symptoms Allergies: Coded Allergies: No Known Allergies (Verified , 03/10/07) Objective Last 24 Hour Vital Signs Date Time Temp Pulse Resp B/P (MAP) Pulse Ox O2 Delivery O2 Flow Rate FiO2 02/09/18 09:05 98 02/09/18 07:50 Nasal Cannula 3.0 32 02/09/18 07:50 99 Nasal Cannula 3.0 32 02/09/18 06:00 98 22 124/68 95 Nasal Cannula 3.0 02/09/18 05:00 102 35 132/57 90 Nasal Cannula 3.0 02/09/18 04:00 104 02/09/18 04:00 98.4 102 33 99/49 97 Nasal Cannula 3.0 98.4 02/09/18 03:00 108 29 104/56 95 Nasal Cannula 3.0 02/09/18 02:00 98 29 103/71 90 Nasal Cannula 3.0 02/09/18 01:00 74 24 104/55 100 Nasal Cannula 3.0 02/09/18 00:00 98.3 78 22 109/58 95 Nasal Cannula 3.0 98.3 02/09/18 00:00 73 02/08/18 23:00 72 35 113/50 99 Nasal Cannula 3.0 02/08/18 22:00 80 28 89/51 100 Nasal Cannula 3.0 02/08/18 21:00 69 33 79/45 94 Nasal Cannula 3.0 02/08/18 20:00 97.9 74 34 94/49 100 Nasal Cannula 3.0 97.9 02/08/18 20:00 77 02/08/18 19:15 Nasal Cannula 3.0 32 02/08/18 19:15 99 Nasal Cannula 3.0 32 02/08/18 19:00 82 33 102/63 94 Nasal Cannula 3.0 02/08/18 18:00 90 24 95/47 97 Nasal Cannula 3.0 02/08/18 17:00 98.5 83 27 86/51 97 Nasal Cannula 3.0 98.5 02/08/18 16:00 80 02/08/18 16:00 75 29 104/38 97 Venturi Mask 55 02/08/18 15:00 75 29 104/38 93 Venturi Mask 55 02/08/18 14:00 78 29 86/37 94 Venturi Mask 55 02/08/18 13:00 90 29 95/47 99 Bi-pap 35 02/08/18 12:00 109 02/08/18 12:00 98.7 96 29 115/43 100 Bi-pap 35 98.7 02/08/18 11:00 119 29 85/61 99 Bi-pap 35 02/08/18 10:30 166/91 02/08/18 10:14 Venturi Mask 14.0 55 02/08/18 10:00 107 33 138/82 83 Bi-pap 35 02/08/18 09:49 98.7 Intake and Output 02/08/18 02/09/18 19:00 07:00 Intake Total 1040.00 ml 600 ml Output Total 1100 ml 255 ml Balance -60.00 ml 345 ml Free Water 400 ml 200 ml IV Total 110.00 ml Tube Feeding 530 ml 400 ml Output Urine Total 1100 ml 255 ml # Bowel Movements 4 2 General Appearance: no acute distress HEENT: normocephalic Respiratory/Chest: chest wall non-tender, lungs clear Cardiovascular: normal peripheral pulses Laboratory Tests 02/09/18 05:03: White Blood Count 18.1H, Red Blood Count 5.00, Hemoglobin 13.7, Hematocrit 43.6 , Mean Corpuscular Volume 87, Mean Corpuscular Hemoglobin 27.5, Mean Corpuscular Hemoglobin Concent 31.5L, Red Cell Distribution Width 16.1H, Platelet Count 386, Mean Platelet Volume 8.7, Neutrophils (%) (Auto) , Lymphocytes (%) (Auto) , Monocytes (%) (Auto) , Eosinophils (%) (Auto) , Basophils (%) (Auto) , Differential Total Cells Counted 100, Neutrophils % ( Manual) 65, Lymphocytes % (Manual) 23, Monocytes % (Manual) 8, Eosinophils % ( Manual) 3, Basophils % (Manual) 0, Metamyelocytes % 1H, Band Neutrophils 0, Platelet Estimate Adequate, Platelet Morphology Normal, Red Blood Cell Morphology Normal, Sodium Level 154H, Potassium Level 2.9L, Chloride Level 113H , Carbon Dioxide Level 31, Anion Gap 10, Blood Urea Nitrogen 30H, Creatinine 0.8 #, Estimat Glomerular Filtration Rate , Glucose Level 104, Calcium Level 8.9 Current Medications Medications (Trade) Dose Ordered Sig/[place] Route PRN Reason Start Time Stop Time Status Last Admin Dose Admin Acetaminophen (Tylenol) 650 mg Q4H PRN GT Mild Pain/Temp > 100.5 02/08/18 08:30 03/10/18 08:29 02/08/18 09:19 Ascorbic Acid (Vitamin C) 500 mg DAILY GT 02/05/18 09:00 03/07/18 08:59 02/09/18 09:05 Clonidine HCl (Catapres Tab) 0.1 mg Q8H PRN GT SBP >160 02/07/18 09:30 03/09/18 09:29 02/08/18 10:30 Dextrose (Dextrose 50%) 25 ml STAT PRN IV Hypoglycemia 02/05/18 04:00 03/07/18 03:59 Dextrose (Dextrose 50%) 50 ml STAT PRN IV Hypoglycemia 02/05/18 04:00 03/07/18 03:59 Digoxin (Lanoxin) 0.125 mg DAILY GT 02/05/18 09:00 03/07/18 08:59 02/09/18 09:05 Enoxaparin Sodium (Lovenox) 30 mg Q24H SUBQ 02/05/18 09:00 03/07/18 08:59 02/09/18 09:08 Famotidine (Pepcid) 20 mg DAILY GT 02/08/18 09:00 03/10/18 08:59 02/09/18 09:05 Insulin Aspart (NovoLOG) EVERY 6 HOURS SUBQ 02/09/18 00:00 03/07/18 06:29 02/09/18 06:22 Morphine Sulfate (Morphine Sulfate) 0.5 mg Q4H PRN IVP PAIN 4-10 02/08/18 09:30 02/12/18 08:14 Piperacillin Sod/ Tazobactam Sod 3.375 gm/Dextrose 110 ml @ 27.5 mls/hr Q8HR@0330,1130,1930 IVPB 02/08/18 11:30 02/15/18 11:29 02/09/18 03:37 Potassium Chloride 100 ml @ 100 mls/hr Q1HR IVPB 02/09/18 09:00 02/09/18 12:59 02/09/18 09:05 Jan Sawant MD Feb 09, 2018 09:35
[2018-02-09] MEDS ORDERED: Morphine Sulfate 2mg/ml Inj IVP PRN (16:00)
[2018-02-09] MEDS ORDERED: Acetaminophen 650mg/20.3ml GT PRN (16:00)
--- NOTE | 2018-02-09 16:33 | Cardiac Electrophysiology PN ---
Assessment/Plan Assessment/Plan 1. Paroxysmal atrial fibrillation. Continue digoxin 0.125 mg daily. The patient currently in sinus rhythm. Hold off on anticoagulation. Her echocardiogram reveals normal left ventricular systolic function. 2. Hypertension. Off meds now. If needed will add Cardizem that helps with atrial fib as well. 3. Respiratory failure and sepsis, off BiPAP On Abx 4. Diabetes, on insulin. 5. Dementia. 6. Dysphagia, status post PEG placement. 7. Sacral decubitus stage III. FU by Dr. Austin. 8. History of stroke with aphasia and contractures. LOLITA RN Subjective Subjective In and out of atrial fib. Transferred out of ICU. Nonverbal but responsive and opens eyes Objective Last 24 Hour Vital Signs Date Time Temp Pulse Resp B/P (MAP) Pulse Ox O2 Delivery O2 Flow Rate FiO2 02/09/18 15:00 91 23 132/78 95 Nasal Cannula 3.0 02/09/18 14:00 92 23 147/83 90 Nasal Cannula 3.0 02/09/18 13:00 93 23 138/75 86 Nasal Cannula 3.0 02/09/18 12:00 88 28 107/62 88 Nasal Cannula 3.0 02/09/18 12:00 97 02/09/18 11:00 89 28 118/73 88 Nasal Cannula 3.0 02/09/18 10:00 97 22 125/79 98 Nasal Cannula 3.0 02/09/18 09:05 98 02/09/18 09:00 90 22 120/72 98 Nasal Cannula 3.0 02/09/18 08:00 92 22 133/104 98 Nasal Cannula 3.0 02/09/18 08:00 92 02/09/18 07:50 Nasal Cannula 3.0 32 02/09/18 07:50 99 Nasal Cannula 3.0 32 02/09/18 07:00 98 22 118/74 98 Nasal Cannula 3.0 02/09/18 06:00 98 22 124/68 95 Nasal Cannula 3.0 02/09/18 05:00 102 35 132/57 90 Nasal Cannula 3.0 02/09/18 04:00 104 02/09/18 04:00 98.4 102 33 99/49 97 Nasal Cannula 3.0 98.4 02/09/18 03:00 108 29 104/56 95 Nasal Cannula 3.0 02/09/18 02:00 98 29 103/71 90 Nasal Cannula 3.0 02/09/18 01:00 74 24 104/55 100 Nasal Cannula 3.0 02/09/18 00:00 98.3 78 22 109/58 95 Nasal Cannula 3.0 98.3 02/09/18 00:00 73 02/08/18 23:00 72 35 113/50 99 Nasal Cannula 3.0 02/08/18 22:00 80 28 89/51 100 Nasal Cannula 3.0 02/08/18 21:00 69 33 79/45 94 Nasal Cannula 3.0 02/08/18 20:00 97.9 74 34 94/49 100 Nasal Cannula 3.0 97.9 02/08/18 20:00 77 02/08/18 19:15 Nasal Cannula 3.0 32 02/08/18 19:15 99 Nasal Cannula 3.0 32 02/08/18 19:00 82 33 102/63 94 Nasal Cannula 3.0 02/08/18 18:00 90 24 95/47 97 Nasal Cannula 3.0 02/08/18 17:00 98.5 83 27 86/51 97 Nasal Cannula 3.0 98.5 Intake and Output 02/08/18 02/09/18 19:00 07:00 Intake Total 1040.00 ml 640 ml Output Total 1100 ml 290 ml Balance -60.00 ml 350 ml Free Water 400 ml 200 ml IV Total 110.00 ml Tube Feeding 530 ml 440 ml Output Urine Total 1100 ml 290 ml # Bowel Movements 4 2 Laboratory Tests Test 02/09/18 05:03 White Blood Count 18.1 K/UL (4.8-10.8) H Red Blood Count 5.00 M/UL (4.20-5.40) Hemoglobin 13.7 G/DL (12.0-16.0) Hematocrit 43.6 % (37.0-47.0) Mean Corpuscular Volume 87 FL (80-99) Mean Corpuscular Hemoglobin 27.5 PG (27.0-31.0) Mean Corpuscular Hemoglobin Concent 31.5 G/DL (32.0-36.0) L Red Cell Distribution Width 16.1 % (11.6-14.8) H Platelet Count 386 K/UL (150-450) Mean Platelet Volume 8.7 FL (6.5-10.1) Neutrophils (%) (Auto) % (45.0-75.0) Lymphocytes (%) (Auto) % (20.0-45.0) Monocytes (%) (Auto) % (1.0-10.0) Eosinophils (%) (Auto) % (0.0-3.0) Basophils (%) (Auto) % (0.0-2.0) Differential Total Cells Counted 100 Neutrophils % (Manual) 65 % (45-75) Lymphocytes % (Manual) 23 % (20-45) Monocytes % (Manual) 8 % (1-10) Eosinophils % (Manual) 3 % (0-3) Basophils % (Manual) 0 % (0-2) Metamyelocytes % 1 % (0-0) H Band Neutrophils 0 % (0-8) Platelet Estimate Adequate Platelet Morphology Normal Red Blood Cell Morphology Normal Sodium Level 154 MMOL/L (136-145) H Potassium Level 2.9 MMOL/L (3.5-5.1) L Chloride Level 113 MMOL/L (98-107) H Carbon Dioxide Level 31 MMOL/L (21-32) Anion Gap 10 mmol/L (5-15) Blood Urea Nitrogen 30 mg/dL (7-18) H Creatinine 0.8 MG/DL (0.55-1.30) # Estimat Glomerular Filtration Rate mL/min (>60) Glucose Level 104 MG/DL (74-106) Calcium Level 8.9 MG/DL (8.5-10.1) Microbiology Date/Time Source Procedure Growth Status 02/08/18 03:00 Stool Clostridium difficile Toxin Assay - Final Complete Objective HEAD AND NECK: No JVD. On Nasal cannula LUNGS: Coarse rhonchi bilaterally. CARDIOVASCULAR: Tachycardic. S1 and S2 with no gallop or murmur. ABDOMEN: Soft and status post G-tube. EXTREMITIES: No pitting edema. She has sacral decubitus. Emmanuel Edgar MD Feb 09, 2018 16:33
[2018-02-09] MEDS ORDERED: Tubing IV Secondary IV ONE (20:52)
[2018-02-09] MEDS ORDERED: NS 275ml ONE (20:52)
[2018-02-10] VITALS: BP 129/78
[2018-02-10] MEDS: Piperacillin/Tazobactam 3.375 GM in D5W 110 ML IVPB SCH ×2 (02:44→11:14)
[2018-02-10 04:00] VITALS: BP 152/80
[2018-02-10] MEDS: NovoLOG Insulin Flexpen SUBQ SCH ×3 (05:12→17:39)
[2018-02-10 05:51] LABS: BASOPHILS % (AUTO) 0.8 % (0.0-2.0); EOSINOPHILS % (AUTO) 2.6 % (0.0-3.0); HEMATOCRIT 41.4 % (37.0-47.0); HEMOGLOBIN 13.5 G/DL (12.0-16.0); LYMPHOCYTES % (AUTO) 24.5 % (20.0-45.0); MEAN CORPUSCULAR VOLUME 87 FL (80-99); MONOCYTES % (AUTO) 6.8 % (1.0-10.0); NEUTROPHILS % (AUTO) 65.3 % (45.0-75.0); PLATELET COUNT 367 K/UL (150-450); RED BLOOD COUNT 4.75 M/UL (4.20-5.40); RED CELL DISTRIBUTION WIDTH 16.3 % (11.6-14.8); WHITE BLOOD COUNT 13.8 K/UL (4.8-10.8)
[2018-02-10 06:12] LABS: ANION GAP 8 mmol/L (5-15); BLOOD UREA NITROGEN 18 mg/dL (7-18); CALCIUM 8.7 MG/DL (8.5-10.1); CARBON DIOXIDE 30 MMOL/L (21-32); CHLORIDE 113 MMOL/L (98-107); CREATININE 0.7 MG/DL (0.55-1.30); POTASSIUM 3.9 MMOL/L (3.5-5.1); SODIUM 151 MMOL/L (136-145)
[2018-02-10 08:00] VITALS: BP 170/85
--- NOTE | 2018-02-10 08:29 | Nephrology Progress Note ---
Assessment/Plan Assessment/Plan 1. Sepsis- HCAP and UTI, - Abx per ID mgmt. WBC much improved 2. Scral Decub- appreciate Gen surgery assistance. Stable 3. Hypernatremia- continue free water thru GTube as sodium improved 4. Resp FL- On face mask. Transfer to [facility]. D/W Pulm necessity of CT PE 5. AFib- on digoxin, appreciate cardiology 6. DVT prophylaxis- lovenox 7. Hypokalemia- being replaced prn Plan for DC tomorrow Subjective Date patient seen: Feb 10, 2018 Time patient seen: 08:27 ROS Limited/Unobtainable: Yes Allergies: Coded Allergies: No Known Allergies (Verified , 03/10/07) Subjective Patient remains off BiPAP Objective Last 24 Hour Vital Signs Date Time Temp Pulse Resp B/P (MAP) Pulse Ox O2 Delivery O2 Flow Rate FiO2 02/10/18 04:00 78 02/10/18 04:00 97.2 84 28 152/80 94 Nasal Cannula 2.0 97.2 02/10/18 02:34 84 02/10/18 02:34 124 02/10/18 00:00 96 02/10/18 00:00 97.2 94 26 129/78 94 Nasal Cannula 2.0 97.2 02/09/18 20:00 73 02/09/18 20:00 98.2 84 28 129/65 93 Nasal Cannula 2.0 98.2 02/09/18 18:38 Nasal Cannula 3.0 32 02/09/18 18:37 98 Nasal Cannula 3.0 32 02/09/18 17:31 160/98 02/09/18 16:00 98.5 89 20 160/98 93 Nasal Cannula 2.0 98.5 02/09/18 16:00 80 02/09/18 15:00 91 23 132/78 95 Nasal Cannula 3.0 02/09/18 14:00 92 23 147/83 90 Nasal Cannula 3.0 02/09/18 13:00 93 23 138/75 86 Nasal Cannula 3.0 02/09/18 12:00 88 28 107/62 88 Nasal Cannula 3.0 02/09/18 12:00 97 02/09/18 11:00 89 28 118/73 88 Nasal Cannula 3.0 02/09/18 10:00 97 22 125/79 98 Nasal Cannula 3.0 02/09/18 09:05 98 02/09/18 09:00 90 22 120/72 98 Nasal Cannula 3.0 Intake and Output 02/09/18 02/10/18 19:00 07:00 Intake Total 790 ml 1100.0 ml Output Total 450 ml Balance 340 ml 1100.0 ml Free Water 200 ml 400 ml IV Total 110 ml 220.0 ml Tube Feeding 480 ml 480 ml Output Urine Total 450 ml # Voids 2 # Bowel Movements 1 Laboratory Tests 02/10/18 04:40: White Blood Count 13.8H, Red Blood Count 4.75, Hemoglobin 13.5, Hematocrit 41.4 , Mean Corpuscular Volume 87, Mean Corpuscular Hemoglobin 28.5, Mean Corpuscular Hemoglobin Concent 32.7, Red Cell Distribution Width 16.3H, Platelet Count 367, Mean Platelet Volume 9.0, Neutrophils (%) (Auto) 65.3, Lymphocytes (%) (Auto) 24.5, Monocytes (%) (Auto) 6.8, Eosinophils (%) (Auto) 2.6, Basophils (%) (Auto) 0.8, Sodium Level 151H, Potassium Level 3.9, Chloride Level 113H, Carbon Dioxide Level 30, Anion Gap 8, Blood Urea Nitrogen 18, Creatinine 0.7, Estimat Glomerular Filtration Rate , Glucose Level 93, Calcium Level 8.7, Magnesium Level [Pending] Height (Feet): 4 Height (Inches): 0.00 Weight (Pounds): 113 General Appearance: no apparent distress EENT: PERRL/EOMI, normal ENT inspection Neck: normal alignment, supple Cardiovascular: normal rate, regular rhythm Respiratory/Chest: lungs clear, normal breath sounds Abdomen: non tender, soft Edema: no edema noted Arm (L), no edema noted Arm (R), no edema noted Leg (L), no edema noted Leg (R), no edema noted Pedal (L), no edema noted Pedal (R), no edema noted Generalized Jorge Graf M.D. Feb 10, 2018 08:29
--- NOTE | 2018-02-10 08:46 | Pulmonology Progress Note ---
Assessment/Plan Assessment/Plan IMPRESSION: 1. Probable pneumonia. CXR difficult to interpret due to positioning. 2. Respiratory failure, improved; On face mask o2 3. Hypertension. 4. Diabetes mellitus. DISCUSSION: 1. Continue supp O2 2. Reviewed ABG. 3. Agree with antibiotics. 4. I will follow carefully as respiratory consultant technology. 5. DVT and GI prophylaxes. 6. Await CT chest r/o PE 7. DIscussed with PMD Subjective Interval Events: Now in [facility] Constitutional: Reports: no symptoms HEENT: Repors: no symptoms Respiratory: Reports: no symptoms Cardiovascular: Reports: no symptoms Gastrointestinal/Abdominal: Reports: no symptoms Genitourinary: Reports: no symptoms Allergies: Coded Allergies: No Known Allergies (Verified , 03/10/07) Objective Last 24 Hour Vital Signs Date Time Temp Pulse Resp B/P (MAP) Pulse Ox O2 Delivery O2 Flow Rate FiO2 02/10/18 08:00 95 02/10/18 04:00 78 02/10/18 04:00 97.2 84 28 152/80 94 Nasal Cannula 2.0 97.2 02/10/18 02:34 84 02/10/18 02:34 124 02/10/18 00:00 96 02/10/18 00:00 97.2 94 26 129/78 94 Nasal Cannula 2.0 97.2 02/09/18 20:00 73 02/09/18 20:00 98.2 84 28 129/65 93 Nasal Cannula 2.0 98.2 02/09/18 18:38 Nasal Cannula 3.0 32 02/09/18 18:37 98 Nasal Cannula 3.0 32 02/09/18 17:31 160/98 02/09/18 16:00 98.5 89 20 160/98 93 Nasal Cannula 2.0 98.5 02/09/18 16:00 80 02/09/18 15:00 91 23 132/78 95 Nasal Cannula 3.0 02/09/18 14:00 92 23 147/83 90 Nasal Cannula 3.0 02/09/18 13:00 93 23 138/75 86 Nasal Cannula 3.0 02/09/18 12:00 88 28 107/62 88 Nasal Cannula 3.0 02/09/18 12:00 97 02/09/18 11:00 89 28 118/73 88 Nasal Cannula 3.0 02/09/18 10:00 97 22 125/79 98 Nasal Cannula 3.0 02/09/18 09:05 98 02/09/18 09:00 90 22 120/72 98 Nasal Cannula 3.0 Intake and Output 02/09/18 02/10/18 19:00 07:00 Intake Total 790 ml 1100.0 ml Output Total 450 ml Balance 340 ml 1100.0 ml Free Water 200 ml 400 ml IV Total 110 ml 220.0 ml Tube Feeding 480 ml 480 ml Output Urine Total 450 ml # Voids 2 # Bowel Movements 1 General Appearance: no acute distress HEENT: normocephalic Respiratory/Chest: chest wall non-tender, lungs clear Cardiovascular: normal peripheral pulses, normal rate Microbiology Date/Time Source Procedure Growth Status 02/08/18 03:00 Stool Clostridium difficile Toxin Assay - Final Complete Laboratory Tests 02/10/18 04:40: White Blood Count 13.8H, Red Blood Count 4.75, Hemoglobin 13.5, Hematocrit 41.4 , Mean Corpuscular Volume 87, Mean Corpuscular Hemoglobin 28.5, Mean Corpuscular Hemoglobin Concent 32.7, Red Cell Distribution Width 16.3H, Platelet Count 367, Mean Platelet Volume 9.0, Neutrophils (%) (Auto) 65.3, Lymphocytes (%) (Auto) 24.5, Monocytes (%) (Auto) 6.8, Eosinophils (%) (Auto) 2.6, Basophils (%) (Auto) 0.8, Sodium Level 151H, Potassium Level 3.9, Chloride Level 113H, Carbon Dioxide Level 30, Anion Gap 8, Blood Urea Nitrogen 18, Creatinine 0.7, Estimat Glomerular Filtration Rate , Glucose Level 93, Calcium Level 8.7, Magnesium Level [Pending] Current Medications Medications (Trade) Dose Ordered Sig/Rosetta Route PRN Reason Start Time Stop Time Status Last Admin Dose Admin Acetaminophen (Tylenol) 650 mg Q4H PRN GT Mild Pain/Temp > 100.5 02/09/18 16:00 03/10/18 15:59 Amlodipine Besylate (Norvasc) 10 mg DAILY ORAL 02/10/18 09:00 03/12/18 08:59 Ascorbic Acid (Vitamin C) 500 mg DAILY GT 02/10/18 09:00 03/07/18 08:59 Clonidine HCl (Catapres Tab) 0.1 mg Q8H PRN GT SBP >160 6/26/18 17:00 03/09/18 16:59 02/09/18 17:31 Dextrose (Dextrose 50%) 25 ml STAT PRN IV Hypoglycemia 02/09/18 16:00 03/11/18 15:59 Dextrose (Dextrose 50%) 50 ml STAT PRN IV Hypoglycemia 02/09/18 16:00 03/11/18 15:59 Digoxin (Lanoxin) 0.125 mg DAILY GT 02/10/18 09:00 03/07/18 08:59 Enoxaparin Sodium (Lovenox) 30 mg Q24H SUBQ 02/10/18 09:00 03/07/18 08:59 Famotidine (Pepcid) 20 mg DAILY GT 02/10/18 09:00 03/10/18 08:59 Insulin Aspart (NovoLOG) EVERY 6 HOURS SUBQ 02/09/18 18:00 03/07/18 06:29 02/09/18 23:08 Morphine Sulfate (Morphine Sulfate) 0.5 mg Q4H PRN IVP PAIN 4-10 02/09/18 16:00 02/12/18 15:59 Piperacillin Sod/ Tazobactam Sod 3.375 gm/Dextrose 110 ml @ 27.5 mls/hr Q8HR@0330,1130,1930 IVPB 02/09/18 19:30 02/15/18 11:29 02/10/18 02:44 Jan Sawant MD Feb 10, 2018 08:46
[2018-02-10] MEDS: Digoxin 0.125mg tab GT SCH (09:03)
[2018-02-10] MEDS: Ascorbic Acid 500mg tab GT SCH (09:04)
[2018-02-10] MEDS: Enoxaparin 30mg Inj SUBQ SCH (09:05)
[2018-02-10 12:00] VITALS: BP 143/89
--- NOTE | 2018-02-10 14:30 | Infectious Diseases Prog Note ---
Assessment/Plan Problems: (1) HCAP (healthcare-associated pneumonia) Assessment & Plan: complicated with respiratory failure, continue zosyn empiric coverage for 7 days, monitor CXR (2) Catheter-associated urinary tract infection Assessment & Plan: S/P sarkar catheter exchange , continue zosyn empiric coverage pending culture (3) Sacral wound Assessment & Plan: colonized with ESBL producing E coli , klebsiella pneumonia and providenciae stuartii . continue local wound care and dressing changes as per hospital protocol . was evaluated by general surgery (4) Sepsis Assessment & Plan: ruled out with negative blood culture , on zosyn pending cultures (5) Acute respiratory failure Assessment & Plan: due to the above, on BIPAP, pulmonary is following, monitor CXR and ABG Subjective ROS Limited/Unobtainable: Yes Allergies: Coded Allergies: No Known Allergies (Verified , 03/10/07) Subjective progress note late entry for 02/09/18 . she was up in bed, comfortable, off BIPAP mask, afebrile, on nasal canula Objective Vital Signs Last 24 Hour Vital Signs Date Time Temp Pulse Resp B/P (MAP) Pulse Ox O2 Delivery O2 Flow Rate FiO2 02/10/18 12:06 95 02/10/18 12:00 98.6 77 18 143/89 95 Nasal Cannula 2.0 98.6 02/10/18 09:03 96 170/85 02/10/18 09:03 96 02/10/18 08:00 97.3 96 19 170/85 95 Nasal Cannula 2.0 97.3 02/10/18 08:00 95 02/10/18 04:00 78 02/10/18 04:00 97.2 84 28 152/80 94 Nasal Cannula 2.0 97.2 02/10/18 02:34 84 02/10/18 02:34 124 02/10/18 00:00 96 02/10/18 00:00 97.2 94 26 129/78 94 Nasal Cannula 2.0 97.2 02/09/18 20:00 73 02/09/18 20:00 98.2 84 28 129/65 93 Nasal Cannula 2.0 98.2 02/09/18 18:38 Nasal Cannula 3.0 32 02/09/18 18:37 98 Nasal Cannula 3.0 32 02/09/18 17:31 160/98 02/09/18 16:00 98.5 89 20 160/98 93 Nasal Cannula 2.0 98.5 02/09/18 16:00 80 02/09/18 15:00 91 23 132/78 95 Nasal Cannula 3.0 Height (Feet): 4 Height (Inches): 0.00 Weight (Pounds): 113 General Appearance: WD/WN, no acute distress, cachetic HEENT: normocephalic, atraumatic, anicteric, mucous membranes moist Respiratory/Chest: chest wall non-tender, lungs clear, normal breath sounds, no respiratory distress, no accessory muscle use Cardiovascular: normal peripheral pulses, normal rate, regular rhythm, no gallop/murmur, no JVD Abdomen: normal bowel sounds, soft, non tender, no organomegaly, non distended , no mass, no scars Extremities: no cyanosis, no clubbing Skin: no rash, no lesions, no ulcers Neurologic/Psychiatric: alert, oriented x 3 Lymphatic: no neck adenopathy, no groin adenopathy Microbiology Date/Time Source Procedure Growth Status 02/08/18 03:00 Stool Clostridium difficile Toxin Assay - Final Complete Laboratory Tests Test 02/10/18 04:40 White Blood Count 13.8 K/UL (4.8-10.8) H Red Blood Count 4.75 M/UL (4.20-5.40) Hemoglobin 13.5 G/DL (12.0-16.0) Hematocrit 41.4 % (37.0-47.0) Mean Corpuscular Volume 87 FL (80-99) Mean Corpuscular Hemoglobin 28.5 PG (27.0-31.0) Mean Corpuscular Hemoglobin Concent 32.7 G/DL (32.0-36.0) Red Cell Distribution Width 16.3 % (11.6-14.8) H Platelet Count 367 K/UL (150-450) Mean Platelet Volume 9.0 FL (6.5-10.1) Neutrophils (%) (Auto) 65.3 % (45.0-75.0) Lymphocytes (%) (Auto) 24.5 % (20.0-45.0) Monocytes (%) (Auto) 6.8 % (1.0-10.0) Eosinophils (%) (Auto) 2.6 % (0.0-3.0) Basophils (%) (Auto) 0.8 % (0.0-2.0) Sodium Level 151 MMOL/L (136-145) H Potassium Level 3.9 MMOL/L (3.5-5.1) Chloride Level 113 MMOL/L (98-107) H Carbon Dioxide Level 30 MMOL/L (21-32) Anion Gap 8 mmol/L (5-15) Blood Urea Nitrogen 18 mg/dL (7-18) Creatinine 0.7 MG/DL (0.55-1.30) Estimat Glomerular Filtration Rate mL/min (>60) Glucose Level 93 MG/DL (74-106) Calcium Level 8.7 MG/DL (8.5-10.1) Magnesium Level 2.5 MG/DL (1.8-2.4) H Current Medications Medications (Trade) Dose Ordered Sig/Rosetta Route PRN Reason Start Time Stop Time Status Last Admin Dose Admin Acetaminophen (Tylenol) 650 mg Q4H PRN GT Mild Pain/Temp > 100.5 02/09/18 16:00 03/10/18 15:59 Amlodipine Besylate (Norvasc) 10 mg DAILY ORAL 02/10/18 09:00 03/12/18 08:59 02/10/18 09:03 Ascorbic Acid (Vitamin C) 500 mg DAILY GT 02/10/18 09:00 03/07/18 08:59 02/10/18 09:04 Clonidine HCl (Catapres Tab) 0.1 mg Q8H PRN GT SBP >160 02/09/18 17:00 03/09/18 16:59 02/09/18 17:31 Dextrose (Dextrose 50%) 25 ml STAT PRN IV Hypoglycemia 02/09/18 16:00 03/11/18 15:59 Dextrose (Dextrose 50%) 50 ml STAT PRN IV Hypoglycemia 02/09/18 16:00 03/11/18 15:59 Digoxin (Lanoxin) 0.125 mg DAILY GT 02/10/18 09:00 03/07/18 08:59 02/10/18 09:03 Enoxaparin Sodium (Lovenox) 30 mg Q24H SUBQ 02/10/18 09:00 03/07/18 08:59 02/10/18 09:05 Famotidine (Pepcid) 20 mg DAILY GT 02/10/18 09:00 03/10/18 08:59 02/10/18 09:03 Insulin Aspart (NovoLOG) EVERY 6 HOURS SUBQ 02/09/18 18:00 03/07/18 06:29 02/09/18 23:08 Morphine Sulfate (Morphine Sulfate) 0.5 mg Q4H PRN IVP PAIN 4-10 02/09/18 16:00 02/12/18 15:59 Piperacillin Sod/ Tazobactam Sod 3.375 gm/Dextrose 110 ml @ 27.5 mls/hr Q8HR@0330,1130,1930 IVPB 02/09/18 19:30 02/15/18 11:29 02/10/18 11:14 Dom Hoffman M.D. Feb 10, 2018 14:30
--- NOTE | 2018-02-10 14:33 | Infectious Diseases Prog Note ---
Assessment/Plan Problems: (1) HCAP (healthcare-associated pneumonia) Assessment & Plan: complicated with respiratory failure, continue zosyn empiric coverage for 7 days, monitor CXR (2) Catheter-associated urinary tract infection Assessment & Plan: S/P sarkar catheter exchange , continue zosyn empiric coverage pending culture (3) Sacral wound Assessment & Plan: colonized with ESBL producing E coli , klebsiella pneumonia and providenciae stuartii . continue local wound care and dressing changes as per hospital protocol . was evaluated by general surgery (4) Sepsis Assessment & Plan: ruled out with negative blood culture , on zosyn pending cultures (5) Acute respiratory failure Assessment & Plan: due to the above, on BIPAP, pulmonary is following, monitor CXR and ABG Subjective ROS Limited/Unobtainable: Yes Allergies: Coded Allergies: No Known Allergies (Verified , 03/10/07) Subjective she was up in bed, comfortable, off BIPAP mask, afebrile, on nasal canula Objective Vital Signs Last 24 Hour Vital Signs Date Time Temp Pulse Resp B/P (MAP) Pulse Ox O2 Delivery O2 Flow Rate FiO2 02/10/18 12:06 95 02/10/18 12:00 98.6 77 18 143/89 95 Nasal Cannula 2.0 98.6 02/10/18 09:03 96 170/85 02/10/18 09:03 96 02/10/18 08:00 97.3 96 19 170/85 95 Nasal Cannula 2.0 97.3 02/10/18 08:00 95 02/10/18 04:00 78 02/10/18 04:00 97.2 84 28 152/80 94 Nasal Cannula 2.0 97.2 02/10/18 02:34 84 02/10/18 02:34 124 02/10/18 00:00 96 02/10/18 00:00 97.2 94 26 129/78 94 Nasal Cannula 2.0 97.2 02/09/18 20:00 73 02/09/18 20:00 98.2 84 28 129/65 93 Nasal Cannula 2.0 98.2 02/09/18 18:38 Nasal Cannula 3.0 32 02/09/18 18:37 98 Nasal Cannula 3.0 32 02/09/18 17:31 160/98 02/09/18 16:00 98.5 89 20 160/98 93 Nasal Cannula 2.0 98.5 02/09/18 16:00 80 02/09/18 15:00 91 23 132/78 95 Nasal Cannula 3.0 Height (Feet): 4 Height (Inches): 0.00 Weight (Pounds): 113 General Appearance: WD/WN, no acute distress, cachetic HEENT: normocephalic, atraumatic, anicteric, mucous membranes moist, PERRL Respiratory/Chest: chest wall non-tender, lungs clear, no respiratory distress , no accessory muscle use, decreased breath sounds, crackles/rales Cardiovascular: normal peripheral pulses, normal rate, regular rhythm, no gallop/murmur, no JVD Abdomen: normal bowel sounds, soft, non tender, no organomegaly, non distended , no mass, no scars Extremities: no cyanosis, no clubbing Skin: no rash, no lesions, no ulcers Neurologic/Psychiatric: alert Lymphatic: no neck adenopathy, no groin adenopathy Microbiology Date/Time Source Procedure Growth Status 02/08/18 03:00 Stool Clostridium difficile Toxin Assay - Final Complete Laboratory Tests Test 02/10/18 04:40 White Blood Count 13.8 K/UL (4.8-10.8) H Red Blood Count 4.75 M/UL (4.20-5.40) Hemoglobin 13.5 G/DL (12.0-16.0) Hematocrit 41.4 % (37.0-47.0) Mean Corpuscular Volume 87 FL (80-99) Mean Corpuscular Hemoglobin 28.5 PG (27.0-31.0) Mean Corpuscular Hemoglobin Concent 32.7 G/DL (32.0-36.0) Red Cell Distribution Width 16.3 % (11.6-14.8) H Platelet Count 367 K/UL (150-450) Mean Platelet Volume 9.0 FL (6.5-10.1) Neutrophils (%) (Auto) 65.3 % (45.0-75.0) Lymphocytes (%) (Auto) 24.5 % (20.0-45.0) Monocytes (%) (Auto) 6.8 % (1.0-10.0) Eosinophils (%) (Auto) 2.6 % (0.0-3.0) Basophils (%) (Auto) 0.8 % (0.0-2.0) Sodium Level 151 MMOL/L (136-145) H Potassium Level 3.9 MMOL/L (3.5-5.1) Chloride Level 113 MMOL/L (98-107) H Carbon Dioxide Level 30 MMOL/L (21-32) Anion Gap 8 mmol/L (5-15) Blood Urea Nitrogen 18 mg/dL (7-18) Creatinine 0.7 MG/DL (0.55-1.30) Estimat Glomerular Filtration Rate mL/min (>60) Glucose Level 93 MG/DL (74-106) Calcium Level 8.7 MG/DL (8.5-10.1) Magnesium Level 2.5 MG/DL (1.8-2.4) H Current Medications Medications (Trade) Dose Ordered Sig/Rosetta Route PRN Reason Start Time Stop Time Status Last Admin Dose Admin Acetaminophen (Tylenol) 650 mg Q4H PRN GT Mild Pain/Temp > 100.5 02/09/18 16:00 03/10/18 15:59 Amlodipine Besylate (Norvasc) 10 mg DAILY ORAL 02/10/18 09:00 03/12/18 08:59 02/10/18 09:03 Ascorbic Acid (Vitamin C) 500 mg DAILY GT 02/10/18 09:00 03/07/18 08:59 02/10/18 09:04 Clonidine HCl (Catapres Tab) 0.1 mg Q8H PRN GT SBP >160 02/09/18 17:00 03/09/18 16:59 02/09/18 17:31 Dextrose (Dextrose 50%) 25 ml STAT PRN IV Hypoglycemia 02/09/18 16:00 03/11/18 15:59 Dextrose (Dextrose 50%) 50 ml STAT PRN IV Hypoglycemia 02/09/18 16:00 03/11/18 15:59 Digoxin (Lanoxin) 0.125 mg DAILY GT 02/10/18 09:00 03/07/18 08:59 02/10/18 09:03 Enoxaparin Sodium (Lovenox) 30 mg Q24H SUBQ 02/10/18 09:00 03/07/18 08:59 02/10/18 09:05 Famotidine (Pepcid) 20 mg DAILY GT 02/10/18 09:00 03/10/18 08:59 02/10/18 09:03 Insulin Aspart (NovoLOG) EVERY 6 HOURS SUBQ 02/09/18 18:00 03/07/18 06:29 02/09/18 23:08 Morphine Sulfate (Morphine Sulfate) 0.5 mg Q4H PRN IVP PAIN 4-10 02/09/18 16:00 02/12/18 15:59 Piperacillin Sod/ Tazobactam Sod 3.375 gm/Dextrose 110 ml @ 27.5 mls/hr Q8HR@0330,1130,1930 IVPB 02/09/18 19:30 02/15/18 11:29 02/10/18 11:14 Dom Hoffman M.D. Feb 10, 2018 14:33
--- NOTE | 2018-02-10 15:16 | Cardiac Electrophysiology PN ---
Assessment/Plan Assessment/Plan 1. Paroxysmal atrial fibrillation. Continue digoxin 0.125 mg daily. Add Cardizem 30 tid The patient currently in sinus rhythm. Hold off on anticoagulation. Echocardiogram reveals normal left ventricular systolic function. 2. Hypertension.Change Norvasc to Cardizem 30 tid 3. Respiratory failure and sepsis, off BiPAP On Abx 4. Diabetes, on insulin. 5. Dementia. 6. Dysphagia, status post PEG placement. 7. Sacral decubitus stage III. FU by Dr. Austin. 8. History of stroke with aphasia and contractures. DW RN Subjective Subjective In and out of atrial fib with RVR. Nonverbal but responsive and opens eyes. RN at bedside Objective Last 24 Hour Vital Signs Date Time Temp Pulse Resp B/P (MAP) Pulse Ox O2 Delivery O2 Flow Rate FiO2 02/10/18 12:06 95 02/10/18 12:00 98.6 77 18 143/89 95 Nasal Cannula 2.0 98.6 02/10/18 09:03 96 170/85 02/10/18 09:03 96 02/10/18 08:00 97.3 96 19 170/85 95 Nasal Cannula 2.0 97.3 02/10/18 08:00 95 02/10/18 04:00 78 02/10/18 04:00 97.2 84 28 152/80 94 Nasal Cannula 2.0 97.2 02/10/18 02:34 84 02/10/18 02:34 124 02/10/18 00:00 96 02/10/18 00:00 97.2 94 26 129/78 94 Nasal Cannula 2.0 97.2 02/09/18 20:00 73 02/09/18 20:00 98.2 84 28 129/65 93 Nasal Cannula 2.0 98.2 02/09/18 18:38 Nasal Cannula 3.0 32 02/09/18 18:37 98 Nasal Cannula 3.0 32 02/09/18 17:31 160/98 02/09/18 16:00 98.5 89 20 160/98 93 Nasal Cannula 2.0 98.5 02/09/18 16:00 80 Intake and Output 02/09/18 02/10/18 19:00 07:00 Intake Total 790 ml 1100.0 ml Output Total 450 ml Balance 340 ml 1100.0 ml Free Water 200 ml 400 ml IV Total 110 ml 220.0 ml Tube Feeding 480 ml 480 ml Output Urine Total 450 ml # Voids 2 # Bowel Movements 1 Laboratory Tests Test 02/10/18 04:40 White Blood Count 13.8 K/UL (4.8-10.8) H Red Blood Count 4.75 M/UL (4.20-5.40) Hemoglobin 13.5 G/DL (12.0-16.0) Hematocrit 41.4 % (37.0-47.0) Mean Corpuscular Volume 87 FL (80-99) Mean Corpuscular Hemoglobin 28.5 PG (27.0-31.0) Mean Corpuscular Hemoglobin Concent 32.7 G/DL (32.0-36.0) Red Cell Distribution Width 16.3 % (11.6-14.8) H Platelet Count 367 K/UL (150-450) Mean Platelet Volume 9.0 FL (6.5-10.1) Neutrophils (%) (Auto) 65.3 % (45.0-75.0) Lymphocytes (%) (Auto) 24.5 % (20.0-45.0) Monocytes (%) (Auto) 6.8 % (1.0-10.0) Eosinophils (%) (Auto) 2.6 % (0.0-3.0) Basophils (%) (Auto) 0.8 % (0.0-2.0) Sodium Level 151 MMOL/L (136-145) H Potassium Level 3.9 MMOL/L (3.5-5.1) Chloride Level 113 MMOL/L (98-107) H Carbon Dioxide Level 30 MMOL/L (21-32) Anion Gap 8 mmol/L (5-15) Blood Urea Nitrogen 18 mg/dL (7-18) Creatinine 0.7 MG/DL (0.55-1.30) Estimat Glomerular Filtration Rate mL/min (>60) Glucose Level 93 MG/DL (74-106) Calcium Level 8.7 MG/DL (8.5-10.1) Magnesium Level 2.5 MG/DL (1.8-2.4) H Microbiology Date/Time Source Procedure Growth Status 02/08/18 03:00 Stool Clostridium difficile Toxin Assay - Final Complete Objective HEAD AND NECK: No JVD. On Nasal cannula LUNGS: Coarse rhonchi bilaterally. CARDIOVASCULAR: Tachy S1 and S2 with no gallop or murmur. ABDOMEN: Soft and status post G-tube. EXTREMITIES: No pitting edema. She has sacral decubitus. Emmanuel Edgar MD Feb 10, 2018 15:16
--- NOTE | 2018-02-10 15:30 | Cardiology Report ---
APPROVED REPORT EKG Measurement Heart [id number] ME [id number] Sinus rhythm with premature atrial complexes Nonspecific T wave abnormality Abnormal ECG
[2018-02-10 16:00] VITALS: BP 145/83
[2018-02-10 20:00] VITALS: BP 130/72
[2018-02-10] MEDS: dilTIAZem HCl 30mg tab ORAL SCH (22:07)
[2018-02-11] VITALS: BP 133/71
[2018-02-11] MEDS: NovoLOG Insulin Flexpen SUBQ SCH ×4 (00:14→17:44)
[2018-02-11 04:00] VITALS: BP 144/80
[2018-02-11] MEDS: dilTIAZem HCl 30mg tab ORAL SCH ×3 (05:50→21:51)
[2018-02-11 06:25] LABS: BASOPHILS % (AUTO) 0.5 % (0.0-2.0); EOSINOPHILS % (AUTO) 1.5 % (0.0-3.0); HEMATOCRIT 46.5 % (37.0-47.0); HEMOGLOBIN 14.7 G/DL (12.0-16.0); LYMPHOCYTES % (AUTO) 24.3 % (20.0-45.0); MEAN CORPUSCULAR VOLUME 87 FL (80-99); MONOCYTES % (AUTO) 4.9 % (1.0-10.0); NEUTROPHILS % (AUTO) 68.8 % (45.0-75.0); PLATELET COUNT 465 K/UL (150-450); RED BLOOD COUNT 5.35 M/UL (4.20-5.40); RED CELL DISTRIBUTION WIDTH 16.3 % (11.6-14.8); WHITE BLOOD COUNT 13.5 K/UL (4.8-10.8)
[2018-02-11 06:44] LABS: ANION GAP 8 mmol/L (5-15); BLOOD UREA NITROGEN 29 mg/dL (7-18); CALCIUM 9.3 MG/DL (8.5-10.1); CARBON DIOXIDE 31 MMOL/L (21-32); CHLORIDE 111 MMOL/L (98-107); CREATININE 0.7 MG/DL (0.55-1.30); SODIUM 150 MMOL/L (136-145)
[2018-02-11 08:00] VITALS: BP 136/77
--- NOTE | 2018-02-11 08:05 | Nephrology Progress Note ---
Assessment/Plan Assessment/Plan 1. Sepsis- HCAP and UTI, - Abx per ID mgmt. Levaquin at DC 2. Scral Decub- wound care 3. Hypernatremia- continue free water thru GTube 4. Resp FL- DC BiPAP and place on face mask 5. AFib- on digoxin, and cardizem 6. DVT prophylaxis- lovenox 7. Hypokalemia- corrected Plan for DC when off BiPAP Subjective Date patient seen: Feb 11, 2018 Time patient seen: 08:01 ROS Limited/Unobtainable: Yes Allergies: Coded Allergies: No Known Allergies (Verified , 03/10/07) Subjective Patient back on BiPAP. Objective Last 24 Hour Vital Signs Date Time Temp Pulse Resp B/P (MAP) Pulse Ox O2 Delivery O2 Flow Rate FiO2 02/11/18 06:32 90 02/11/18 05:50 92 144/80 02/11/18 04:41 68 21 94 Facial 90 02/11/18 04:00 90 02/11/18 04:00 98.0 89 20 144/80 91 Nasal Cannula 2.0 98.0 02/11/18 04:00 80 02/11/18 02:30 82 22 96 Facial 90 02/11/18 01:35 86 26 99 Facial 80 02/11/18 01:35 84 02/11/18 00:00 100 02/11/18 00:00 97.3 79 22 133/71 96 Nasal Cannula 2.0 97.3 02/10/18 23:21 71 26 98 Facial 100 02/10/18 22:07 83 132/73 02/10/18 20:20 100 02/10/18 20:20 72 36 99 Facial 100 02/10/18 20:00 97 02/10/18 20:00 97.3 91 22 130/72 93 Nasal Cannula 2.0 97.3 02/10/18 18:30 Non-Rebreather 15.0 100 02/10/18 18:30 95 Non-Rebreather 15.0 100 02/10/18 16:00 94 02/10/18 16:00 98.6 94 21 145/83 94 Nasal Cannula 2.0 98.6 02/10/18 12:06 95 02/10/18 12:00 98.6 77 18 143/89 95 Nasal Cannula 2.0 98.6 02/10/18 10:07 Nasal Cannula 3.0 32 02/10/18 10:06 96 Nasal Cannula 3.0 32 02/10/18 09:03 96 170/85 02/10/18 09:03 96 Intake and Output 02/10/18 02/11/18 19:00 07:00 Intake Total 940.0 ml 870 ml Balance 940.0 ml 870 ml Free Water 400 ml 350 ml IV Total 110.0 ml Tube Feeding 400 ml 520 ml Other 30 ml # Voids 3 2 # Bowel Movements 3 1 Laboratory Tests 02/11/18 04:04: White Blood Count 13.5H, Red Blood Count 5.35, Hemoglobin 14.7, Hematocrit 46.5 , Mean Corpuscular Volume 87, Mean Corpuscular Hemoglobin 27.4, Mean Corpuscular Hemoglobin Concent 31.5L, Red Cell Distribution Width 16.3H, Platelet Count 465H, Mean Platelet Volume 9.3, Neutrophils (%) (Auto) 68.8, Lymphocytes (%) (Auto) 24.3, Monocytes (%) (Auto) 4.9, Eosinophils (%) (Auto) 1.5, Basophils (%) (Auto) 0.5, Sodium Level 150H, Potassium Level 4.0, Chloride Level 111H, Carbon Dioxide Level 31, Anion Gap 8, Blood Urea Nitrogen 29H, Creatinine 0.7, Estimat Glomerular Filtration Rate , Glucose Level 119H, Calcium Level 9.3 Height (Feet): 4 Height (Inches): 0.00 Weight (Pounds): 85 General Appearance: no apparent distress EENT: normal ENT inspection Neck: normal alignment, supple Cardiovascular: normal rate, regular rhythm Respiratory/Chest: rhonchi - bilaterally Abdomen: non tender, soft Edema: no edema noted Arm (L), no edema noted Arm (R), no edema noted Leg (L), no edema noted Leg (R), no edema noted Pedal (L), no edema noted Pedal (R), no edema noted Generalized Jorge Graf M.D. Feb 11, 2018 08:05
[2018-02-11] MEDS: Levofloxacin 500mg tab ORAL SCH (08:46)
[2018-02-11] MEDS: Digoxin 0.125mg tab GT SCH (08:46)
[2018-02-11] MEDS: Ascorbic Acid 500mg tab GT SCH (08:46)
[2018-02-11] MEDS: Enoxaparin 30mg Inj SUBQ SCH (08:48)
[2018-02-11 12:00] VITALS: BP 132/92
--- NOTE | 2018-02-11 12:50 | Consultation ---
History of Present Illness General Date patient seen: Feb 09, 2018 Chief Complaint: Fever Reason for Consultation: sepsis Present Illness HPI 82-year-old lady, with hx of dementia, hypertension and paroxysmal atrial fibrillation. the pt is confused i was asked to fill out paper work for ct of chest with contrast the pt was unable to understand, process and communicate rationally. Allergies: Coded Allergies: No Known Allergies (Verified , 03/10/07) Medication History Scheduled Ascorbic Acid* (Vitamin C*), 500 MG ORAL DAILY, (Reported) Bisacodyl* (Dulcolax*), 10 MG ORAL DAILY, (Reported) Digoxin* (Digoxin*), 0.125 MG GT DAILY Enoxaparin* (Lovenox*), 40 MG SUBQ DAILY, (Reported) Esomeprazole Magnesium (Nexium), 40 MG ORAL DAILY, (Reported) Guaifenesin* (Adult Wal-Tussin*), 5 ML ORAL Q4H, (Reported) Levalbuterol Hcl (Xopenex*), 1.25 MG HHN Q4H, (Reported) Magnesium Hydroxide* (Milk Of Magnesia*), 30 ML ORAL DAILY, (Reported) Multivitamin With Minerals (Multivitamins With Minerals*), 1 TAB ORAL DAILY, ( Reported) Wkvrqshebqil-Xsht-Rjskvcgs,Iso (Zosyn 3.375 Gm Pre Mix-Bag), 3.375 GM IVPB EVERY 8 HOURS, (Reported) Lzkjtkkgwytn-Kcak-Mzekyjaj,Iso (Zosyn 3.375 Gm Pre Mix-Bag), 3.375 GM IVPB EVERY 8 HOURS, (Reported) Qywpcteqogvb-Takg-Ztaqekbm,Iso (Zosyn 3.375 Gm Pre Mix-Bag), 3.375 GM IVPB EVERY 8 HOURS, (Reported) Vancomycin HCl (Vancocin HCl), 750 MG IVPB Q12HR, (Reported) Zinc Sulfate (Zinc Sulfate*), 220 MG ORAL DAILY, (Reported) Scheduled PRN Acetaminophen 160MG/5ML* (Acetaminophen*), 5 ML ORAL THREE TIMES A DAY PRN for Fever/Headache/Mild Pain, (Reported) Ipratropium Goodwin 0.5MG/2.5ML (Ipratropium Goodwin 0.5MG/2.5ML), 0.5 MG HHN Q6H PRN for Shortness of Breath, (Reported) Tramadol Hcl* (Ultram*), 50 MG ORAL Q6H PRN for For Pain, (Reported) Miscellaneous Medications Amino Acids/Protein Hydrolys (Pro-Stat Profile Liquid), 887 ML PO, (Reported) Insulin Lispro (Humalog), 0 SUBQ, (Reported) Nut.tx.gluc.intoler,Lac-Fr,Soy (Glytrol), 250 ML PO, (Reported) Sennosides (Senna), 8.6 MG PO, (Reported) Patient History Limited by: medical condition History Provided By: Patient, Medical Record, PMD Healthcare decision maker Resuscitation status Full Code Advanced Directive on File Review of Systems Psychiatric: Reports: prior hx, anxiety, depressed feelings, emotional problems Physical Exam General Appearance: WD/WN, no apparent distress, alert, confused Last 24 Hour Vital Signs Date Time Temp Pulse Resp B/P (MAP) Pulse Ox O2 Delivery O2 Flow Rate FiO2 02/11/18 12:00 98.2 96 22 132/92 98 Nasal Cannula 2.0 98.2 02/11/18 08:46 76 02/11/18 08:06 Venturi Mask 14.0 55 02/11/18 08:04 94 Venturi Mask 14.0 55 02/11/18 08:00 87 02/11/18 08:00 97.0 86 22 136/77 95 Nasal Cannula 2.0 97.0 02/11/18 06:32 90 02/11/18 05:50 92 144/80 02/11/18 04:41 68 21 94 Facial 90 02/11/18 04:00 90 02/11/18 04:00 98.0 89 20 144/80 91 Nasal Cannula 2.0 98.0 02/11/18 04:00 80 02/11/18 02:30 82 22 96 Facial 90 02/11/18 01:35 86 26 99 Facial 80 02/11/18 01:35 84 02/11/18 00:00 100 02/11/18 00:00 97.3 79 22 133/71 96 Nasal Cannula 2.0 97.3 02/10/18 23:21 71 26 98 Facial 100 02/10/18 22:07 83 132/73 02/10/18 20:20 100 02/10/18 20:20 72 36 99 Facial 100 02/10/18 20:00 97 02/10/18 20:00 97.3 91 22 130/72 93 Nasal Cannula 2.0 97.3 02/10/18 18:30 Non-Rebreather 15.0 100 02/10/18 18:30 95 Non-Rebreather 15.0 100 02/10/18 16:00 94 02/10/18 16:00 98.6 94 21 145/83 94 Nasal Cannula 2.0 98.6 Intake and Output 02/10/18 02/11/18 19:00 07:00 Intake Total 940.0 ml 877 ml Balance 940.0 ml 877 ml Free Water 400 ml 350 ml IV Total 110.0 ml Tube Feeding 400 ml 527 ml Other 30 ml # Voids 3 2 # Bowel Movements 3 1 Laboratory Tests Test 02/11/18 04:04 White Blood Count 13.5 K/UL (4.8-10.8) H Red Blood Count 5.35 M/UL (4.20-5.40) Hemoglobin 14.7 G/DL (12.0-16.0) Hematocrit 46.5 % (37.0-47.0) Mean Corpuscular Volume 87 FL (80-99) Mean Corpuscular Hemoglobin 27.4 PG (27.0-31.0) Mean Corpuscular Hemoglobin Concent 31.5 G/DL (32.0-36.0) L Red Cell Distribution Width 16.3 % (11.6-14.8) H Platelet Count 465 K/UL (150-450) H Mean Platelet Volume 9.3 FL (6.5-10.1) Neutrophils (%) (Auto) 68.8 % (45.0-75.0) Lymphocytes (%) (Auto) 24.3 % (20.0-45.0) Monocytes (%) (Auto) 4.9 % (1.0-10.0) Eosinophils (%) (Auto) 1.5 % (0.0-3.0) Basophils (%) (Auto) 0.5 % (0.0-2.0) Sodium Level 150 MMOL/L (136-145) H Potassium Level 4.0 MMOL/L (3.5-5.1) Chloride Level 111 MMOL/L (98-107) H Carbon Dioxide Level 31 MMOL/L (21-32) Anion Gap 8 mmol/L (5-15) Blood Urea Nitrogen 29 mg/dL (7-18) H Creatinine 0.7 MG/DL (0.55-1.30) Estimat Glomerular Filtration Rate mL/min (>60) Glucose Level 119 MG/DL (74-106) H Calcium Level 9.3 MG/DL (8.5-10.1) Height (Feet): 4 Height (Inches): 0.00 Weight (Pounds): 85 Medications Current Medications Medications (Trade) Dose Ordered Sig/Rosetta Route PRN Reason Start Time Stop Time Status Last Admin Dose Admin Acetaminophen (Tylenol) 650 mg Q4H PRN GT Mild Pain/Temp > 100.5 02/09/18 16:00 03/10/18 15:59 Ascorbic Acid (Vitamin C) 500 mg DAILY GT 02/10/18 09:00 03/07/18 08:59 02/11/18 08:46 Clonidine HCl (Catapres Tab) 0.1 mg Q8H PRN GT SBP >160 02/09/18 17:00 03/09/18 16:59 02/09/18 17:31 Dextrose (Dextrose 50%) 25 ml STAT PRN IV Hypoglycemia 02/09/18 16:00 03/11/18 15:59 Dextrose (Dextrose 50%) 50 ml STAT PRN IV Hypoglycemia 02/09/18 16:00 03/11/18 15:59 Digoxin (Lanoxin) 0.125 mg DAILY GT 02/10/18 09:00 03/07/18 08:59 02/11/18 08:46 Diltiazem HCl (Cardizem) 30 mg EVERY 8 HOURS ORAL 02/10/18 22:00 03/12/18 21:59 02/11/18 05:50 Enoxaparin Sodium (Lovenox) 30 mg Q24H SUBQ 02/10/18 09:00 03/07/18 08:59 02/11/18 08:48 Famotidine (Pepcid) 20 mg DAILY GT 02/10/18 09:00 03/10/18 08:59 02/11/18 08:46 Insulin Aspart (NovoLOG) EVERY 6 HOURS SUBQ 02/09/18 18:00 03/07/18 06:29 02/11/18 12:25 Levofloxacin (Levaquin) 500 mg DAILY ORAL 02/11/18 09:00 7/5/18 08:59 02/11/18 08:46 Morphine Sulfate (Morphine Sulfate) 0.5 mg Q4H PRN IVP PAIN 4-10 02/09/18 16:00 02/12/18 15:59 Assessment/Plan Assessment/Plan Dementia encephalopathy the pt lacks capacity to make decisions filled out the paper work and ordered Darling Taylor M.D. Feb 11, 2018 12:50
--- NOTE | 2018-02-11 14:50 | Infectious Diseases Prog Note ---
Assessment/Plan Problems: (1) HCAP (healthcare-associated pneumonia) Assessment & Plan: complicated with respiratory failure, continue zosyn empiric coverage for now , repeat CXR today and ABG since she is hypoxemic. (2) Catheter-associated urinary tract infection Assessment & Plan: S/P sarkar catheter exchange , on zosyn empiric coverage (3) Sacral wound Assessment & Plan: colonized with ESBL producing E coli , klebsiella pneumonia and providenciae stuartii . continue local wound care and dressing changes as per hospital protocol . was evaluated by general surgery (4) Sepsis Assessment & Plan: ruled out with negative blood culture , on zosyn. (5) Acute respiratory failure Assessment & Plan: with hypoxemia , due to the above, restrted on BIPAP, pulmonary is following, repeat CXR and ABG Subjective Constitutional: Reports: no symptoms HEENT: Reports: no symptoms Respiratory: Reports: shortness of breath Breasts: Reports: no symptoms Cardiovascular: Reports: no symptoms Gastrointestinal/Abdominal: Reports: no symptoms Genitourinary: Reports: no symptoms Neurologic: Reports: no symptoms Psychiatric: Reports: no symptoms Skin: Reports: no symptoms Endocrine: Reports: no symptoms Hematologic: Reports: no symptoms Musculoskeletal: Reports: no symptoms Allergies: Coded Allergies: No Known Allergies (Verified , 03/10/07) Subjective she was up in bed, comfortable, off BIPAP mask, afebrile, on nasal canula Objective Vital Signs Last 24 Hour Vital Signs Date Time Temp Pulse Resp B/P (MAP) Pulse Ox O2 Delivery O2 Flow Rate FiO2 02/11/18 14:22 65 132/67 02/11/18 12:57 105 37 86 Facial 100 02/11/18 12:00 98.2 96 22 132/92 98 Nasal Cannula 2.0 98.2 02/11/18 08:46 76 02/11/18 08:06 Venturi Mask 14.0 55 02/11/18 08:04 94 Venturi Mask 14.0 55 02/11/18 08:00 87 02/11/18 08:00 97.0 86 22 136/77 95 Nasal Cannula 2.0 97.0 02/11/18 06:32 90 02/11/18 05:50 92 144/80 02/11/18 04:41 68 21 94 Facial 90 02/11/18 04:00 90 02/11/18 04:00 98.0 89 20 144/80 91 Nasal Cannula 2.0 98.0 02/11/18 04:00 80 02/11/18 02:30 82 22 96 Facial 90 02/11/18 01:35 86 26 99 Facial 80 02/11/18 01:35 84 02/11/18 00:00 100 02/11/18 00:00 97.3 79 22 133/71 96 Nasal Cannula 2.0 97.3 02/10/18 23:21 71 26 98 Facial 100 02/10/18 22:07 83 132/73 02/10/18 20:20 100 02/10/18 20:20 72 36 99 Facial 100 02/10/18 20:00 97 02/10/18 20:00 97.3 91 22 130/72 93 Nasal Cannula 2.0 97.3 02/10/18 18:30 Non-Rebreather 15.0 100 02/10/18 18:30 95 Non-Rebreather 15.0 100 02/10/18 16:00 94 02/10/18 16:00 98.6 94 21 145/83 94 Nasal Cannula 2.0 98.6 Height (Feet): 4 Height (Inches): 0.00 Weight (Pounds): 85 General Appearance: WD/WN, no acute distress HEENT: normocephalic, atraumatic, anicteric, mucous membranes moist, PERRL Respiratory/Chest: chest wall non-tender, lungs clear, normal breath sounds, no respiratory distress, no accessory muscle use Cardiovascular: normal peripheral pulses, normal rate, regular rhythm, no gallop/murmur, no JVD Abdomen: normal bowel sounds, soft, non tender, no organomegaly, non distended , no mass, no scars Extremities: no cyanosis, no clubbing Skin: no rash, no lesions, no ulcers Neurologic/Psychiatric: alert, oriented x 3 Lymphatic: no neck adenopathy, no groin adenopathy Laboratory Tests Test 02/11/18 04:04 02/11/18 13:37 White Blood Count 13.5 K/UL (4.8-10.8) H Red Blood Count 5.35 M/UL (4.20-5.40) Hemoglobin 14.7 G/DL (12.0-16.0) Hematocrit 46.5 % (37.0-47.0) Mean Corpuscular Volume 87 FL (80-99) Mean Corpuscular Hemoglobin 27.4 PG (27.0-31.0) Mean Corpuscular Hemoglobin Concent 31.5 G/DL (32.0-36.0) L Red Cell Distribution Width 16.3 % (11.6-14.8) H Platelet Count 465 K/UL (150-450) H Mean Platelet Volume 9.3 FL (6.5-10.1) Neutrophils (%) (Auto) 68.8 % (45.0-75.0) Lymphocytes (%) (Auto) 24.3 % (20.0-45.0) Monocytes (%) (Auto) 4.9 % (1.0-10.0) Eosinophils (%) (Auto) 1.5 % (0.0-3.0) Basophils (%) (Auto) 0.5 % (0.0-2.0) Sodium Level 150 MMOL/L (136-145) H Potassium Level 4.0 MMOL/L (3.5-5.1) Chloride Level 111 MMOL/L (98-107) H Carbon Dioxide Level 31 MMOL/L (21-32) Anion Gap 8 mmol/L (5-15) Blood Urea Nitrogen 29 mg/dL (7-18) H Creatinine 0.7 MG/DL (0.55-1.30) Estimat Glomerular Filtration Rate mL/min (>60) Glucose Level 119 MG/DL (74-106) H Calcium Level 9.3 MG/DL (8.5-10.1) Arterial Blood pH 7.438 (7.350-7.450) Arterial Blood Partial Pressure CO2 46.1 mmHg (35.0-45.0) H Arterial Blood Partial Pressure O2 58.2 mmHg (75.0-100.0) L Arterial Blood HCO3 30.5 mmol/L (22.0-26.0) H Arterial Blood Oxygen Saturation 88.3 % (92.0-98.0) L Arterial Blood Base Excess 5.4 Kang Test Positive Current Medications Medications (Trade) Dose Ordered Sig/Rosetta Route PRN Reason Start Time Stop Time Status Last Admin Dose Admin Acetaminophen (Tylenol) 650 mg Q4H PRN GT Mild Pain/Temp > 100.5 02/09/18 16:00 03/10/18 15:59 Ascorbic Acid (Vitamin C) 500 mg DAILY GT 02/10/18 09:00 03/07/18 08:59 02/11/18 08:46 Clonidine HCl (Catapres Tab) 0.1 mg Q8H PRN GT SBP >160 02/09/18 17:00 03/09/18 16:59 02/09/18 17:31 Dextrose (Dextrose 50%) 25 ml STAT PRN IV Hypoglycemia 02/09/18 16:00 03/11/18 15:59 Dextrose (Dextrose 50%) 50 ml STAT PRN IV Hypoglycemia 02/09/18 16:00 03/11/18 15:59 Digoxin (Lanoxin) 0.125 mg DAILY GT 02/10/18 09:00 03/07/18 08:59 02/11/18 08:46 Diltiazem HCl (Cardizem) 30 mg EVERY 8 HOURS ORAL 02/10/18 22:00 03/12/18 21:59 02/11/18 14:22 Enoxaparin Sodium (Lovenox) 30 mg Q24H SUBQ 02/10/18 09:00 03/07/18 08:59 02/11/18 08:48 Famotidine (Pepcid) 20 mg DAILY GT 02/10/18 09:00 03/10/18 08:59 02/11/18 08:46 Insulin Aspart (NovoLOG) EVERY 6 HOURS SUBQ 02/09/18 18:00 03/07/18 06:29 02/11/18 12:25 Levofloxacin (Levaquin) 500 mg DAILY ORAL 02/11/18 09:00 02/18/18 08:59 02/11/18 08:46 Morphine Sulfate (Morphine Sulfate) 0.5 mg Q4H PRN IVP PAIN 4-10 02/09/18 16:00 02/12/18 15:59 Dom Hoffman M.D. Feb 11, 2018 14:50
--- NOTE | 2018-02-11 14:50 | Diagnostic Imaging Report ---
Indication: Dyspnea Comparison: 02/08/2018 A single view chest radiograph was obtained. Findings: Exam is limited by rotation. Heart size is normal. There is a focus of airspace disease in the left lung base may be atelectasis. Bones are osteopenic. IMPRESSION: No change from the prior study. Suspect left basal atelectasis versus pneumonia
[2018-02-11 16:00] VITALS: BP 135/98
--- NOTE | 2018-02-11 16:15 | Cardiac Electrophysiology PN ---
Assessment/Plan Assessment/Plan 1. Paroxysmal atrial fibrillation. Continue digoxin 0.125 mg daily and Cardizem 30 tid The patient currently in sinus rhythm. Hold off on anticoagulation. Echocardiogram showed normal left ventricular systolic function. 2. Hypertension. On Cardizem 30 tid 3. Respiratory failure and sepsis, off BiPAP On Abx 4. Diabetes, on insulin. 5. Dementia. 6. Dysphagia, status post PEG placement. 7. Sacral decubitus stage III. FU by Dr. Austin. 8. History of stroke with aphasia and contractures. DW RN Subjective Subjective In and out of atrial fib. Nonverbal but responsive and opens eyes. On BIPAP now. Objective Last 24 Hour Vital Signs Date Time Temp Pulse Resp B/P (MAP) Pulse Ox O2 Delivery O2 Flow Rate FiO2 02/11/18 15:07 97 47 85 Facial 100 02/11/18 14:22 65 132/67 02/11/18 12:57 105 37 86 Facial 100 02/11/18 12:00 98 02/11/18 12:00 98.2 96 22 132/92 98 Nasal Cannula 2.0 98.2 02/11/18 08:46 76 02/11/18 08:06 Venturi Mask 14.0 55 02/11/18 08:04 94 Venturi Mask 14.0 55 02/11/18 08:00 87 02/11/18 08:00 97.0 86 22 136/77 95 Nasal Cannula 2.0 97.0 02/11/18 06:32 90 02/11/18 05:50 92 144/80 02/11/18 04:41 68 21 94 Facial 90 02/11/18 04:00 90 02/11/18 04:00 98.0 89 20 144/80 91 Nasal Cannula 2.0 98.0 02/11/18 04:00 80 02/11/18 02:30 82 22 96 Facial 90 02/11/18 01:35 86 26 99 Facial 80 02/11/18 01:35 84 02/11/18 00:00 100 02/11/18 00:00 97.3 79 22 133/71 96 Nasal Cannula 2.0 97.3 02/10/18 23:21 71 26 98 Facial 100 02/10/18 22:07 83 132/73 02/10/18 20:20 100 02/10/18 20:20 72 36 99 Facial 100 02/10/18 20:00 97 02/10/18 20:00 97.3 91 22 130/72 93 Nasal Cannula 2.0 97.3 02/10/18 18:30 Non-Rebreather 15.0 100 02/10/18 18:30 95 Non-Rebreather 15.0 100 Intake and Output 02/10/18 02/11/18 19:00 07:00 Intake Total 940.0 ml 877 ml Balance 940.0 ml 877 ml Free Water 400 ml 350 ml IV Total 110.0 ml Tube Feeding 400 ml 527 ml Other 30 ml # Voids 3 2 # Bowel Movements 3 1 Laboratory Tests Test 02/11/18 04:04 02/11/18 13:37 White Blood Count 13.5 K/UL (4.8-10.8) H Red Blood Count 5.35 M/UL (4.20-5.40) Hemoglobin 14.7 G/DL (12.0-16.0) Hematocrit 46.5 % (37.0-47.0) Mean Corpuscular Volume 87 FL (80-99) Mean Corpuscular Hemoglobin 27.4 PG (27.0-31.0) Mean Corpuscular Hemoglobin Concent 31.5 G/DL (32.0-36.0) L Red Cell Distribution Width 16.3 % (11.6-14.8) H Platelet Count 465 K/UL (150-450) H Mean Platelet Volume 9.3 FL (6.5-10.1) Neutrophils (%) (Auto) 68.8 % (45.0-75.0) Lymphocytes (%) (Auto) 24.3 % (20.0-45.0) Monocytes (%) (Auto) 4.9 % (1.0-10.0) Eosinophils (%) (Auto) 1.5 % (0.0-3.0) Basophils (%) (Auto) 0.5 % (0.0-2.0) Sodium Level 150 MMOL/L (136-145) H Potassium Level 4.0 MMOL/L (3.5-5.1) Chloride Level 111 MMOL/L (98-107) H Carbon Dioxide Level 31 MMOL/L (21-32) Anion Gap 8 mmol/L (5-15) Blood Urea Nitrogen 29 mg/dL (7-18) H Creatinine 0.7 MG/DL (0.55-1.30) Estimat Glomerular Filtration Rate mL/min (>60) Glucose Level 119 MG/DL (74-106) H Calcium Level 9.3 MG/DL (8.5-10.1) Arterial Blood pH 7.438 (7.350-7.450) Arterial Blood Partial Pressure CO2 46.1 mmHg (35.0-45.0) H Arterial Blood Partial Pressure O2 58.2 mmHg (75.0-100.0) L Arterial Blood HCO3 30.5 mmol/L (22.0-26.0) H Arterial Blood Oxygen Saturation 88.3 % (92.0-98.0) L Arterial Blood Base Excess 5.4 Kang Test Positive Objective HEAD AND NECK: No JVD. On Nasal cannula LUNGS: Coarse rhonchi bilaterally. CARDIOVASCULAR: Tachy S1 and S2 with no gallop or murmur. ABDOMEN: Soft and status post G-tube. EXTREMITIES: No pitting edema. She has sacral decubitus. Emmanuel Edgar MD Feb 11, 2018 16:15
--- NOTE | 2018-02-11 16:42 | General Progress Note ---
Assessment/Plan Assessment/Plan Dementia encephalopathy the pt lacks capacity to make decisions haldol prn Subjective Date patient seen: Feb 11, 2018 Neurologic/Psychiatric: Reports: anxiety, emotional problems Allergies: Coded Allergies: No Known Allergies (Verified , 03/10/07) Objective Last 24 Hour Vital Signs Date Time Temp Pulse Resp B/P (MAP) Pulse Ox O2 Delivery O2 Flow Rate FiO2 02/11/18 15:07 97 47 85 Facial 100 02/11/18 14:22 65 132/67 02/11/18 12:57 105 37 86 Facial 100 02/11/18 12:00 98 02/11/18 12:00 98.2 96 22 132/92 98 Nasal Cannula 2.0 98.2 02/11/18 08:46 76 02/11/18 08:06 Venturi Mask 14.0 55 02/11/18 08:04 94 Venturi Mask 14.0 55 02/11/18 08:00 87 02/11/18 08:00 97.0 86 22 136/77 95 Nasal Cannula 2.0 97.0 02/11/18 06:32 90 02/11/18 05:50 92 144/80 02/11/18 04:41 68 21 94 Facial 90 02/11/18 04:00 90 02/11/18 04:00 98.0 89 20 144/80 91 Nasal Cannula 2.0 98.0 02/11/18 04:00 80 02/11/18 02:30 82 22 96 Facial 90 02/11/18 01:35 86 26 99 Facial 80 02/11/18 01:35 84 02/11/18 00:00 100 02/11/18 00:00 97.3 79 22 133/71 96 Nasal Cannula 2.0 97.3 02/10/18 23:21 71 26 98 Facial 100 02/10/18 22:07 83 132/73 02/10/18 20:20 100 02/10/18 20:20 72 36 99 Facial 100 02/10/18 20:00 97 02/10/18 20:00 97.3 91 22 130/72 93 Nasal Cannula 2.0 97.3 02/10/18 18:30 Non-Rebreather 15.0 100 02/10/18 18:30 95 Non-Rebreather 15.0 100 Intake and Output 02/10/18 02/11/18 19:00 07:00 Intake Total 940.0 ml 877 ml Balance 940.0 ml 877 ml Free Water 400 ml 350 ml IV Total 110.0 ml Tube Feeding 400 ml 527 ml Other 30 ml # Voids 3 2 # Bowel Movements 3 1 Laboratory Tests 02/11/18 04:04: White Blood Count 13.5H, Red Blood Count 5.35, Hemoglobin 14.7, Hematocrit 46.5 , Mean Corpuscular Volume 87, Mean Corpuscular Hemoglobin 27.4, Mean Corpuscular Hemoglobin Concent 31.5L, Red Cell Distribution Width 16.3H, Platelet Count 465H, Mean Platelet Volume 9.3, Neutrophils (%) (Auto) 68.8, Lymphocytes (%) (Auto) 24.3, Monocytes (%) (Auto) 4.9, Eosinophils (%) (Auto) 1.5, Basophils (%) (Auto) 0.5, Sodium Level 150H, Potassium Level 4.0, Chloride Level 111H, Carbon Dioxide Level 31, Anion Gap 8, Blood Urea Nitrogen 29H, Creatinine 0.7, Estimat Glomerular Filtration Rate , Glucose Level 119H, Calcium Level 9.3 02/11/18 13:37: Arterial Blood pH 7.438, Arterial Blood Partial Pressure CO2 46.1H, Arterial Blood Partial Pressure O2 58.2L, Arterial Blood HCO3 30.5H, Arterial Blood Oxygen Saturation 88.3L, Arterial Blood Base Excess 5.4, Kang Test Positive Height (Feet): 4 Height (Inches): 0.00 Weight (Pounds): 85 General Appearance: no apparent distress, confused Darling Baker M.D. Feb 11, 2018 16:42
--- NOTE | 2018-02-11 17:21 | Pulmonology Progress Note ---
Assessment/Plan Assessment/Plan IMPRESSION: 1. Probable pneumonia. CXR with scoliosis 2. Respiratory failure worse, on BiPAP 3. Hypertension. 4. Diabetes mellitus. 5. Dehydration, hypernatremia DISCUSSION: 1. Continue BiPAP 2. Reviewed ABG. 3. Antibiotics. 4. D5W 5. DVT and GI prophylaxes. 6. Await CT chest r/o PE 7. Discussed with RN Subjective ROS Limited/Unobtainable: Yes Allergies: Coded Allergies: No Known Allergies (Verified , 03/10/07) Objective Last 24 Hour Vital Signs Date Time Temp Pulse Resp B/P (MAP) Pulse Ox O2 Delivery O2 Flow Rate FiO2 02/11/18 16:55 56 43 84 Facial 100 02/11/18 16:00 97.7 99 42 135/98 100 Bi-pap 100 97.7 02/11/18 16:00 109 02/11/18 15:07 97 47 85 Facial 100 02/11/18 14:22 65 132/67 02/11/18 12:57 105 37 86 Facial 100 02/11/18 12:00 98 02/11/18 12:00 98.2 96 22 132/92 98 Nasal Cannula 2.0 98.2 02/11/18 08:46 76 02/11/18 08:06 Venturi Mask 14.0 55 02/11/18 08:04 94 Venturi Mask 14.0 55 02/11/18 08:00 87 02/11/18 08:00 97.0 86 22 136/77 95 Nasal Cannula 2.0 97.0 02/11/18 06:32 90 02/11/18 05:50 92 144/80 02/11/18 04:41 68 21 94 Facial 90 02/11/18 04:00 90 02/11/18 04:00 98.0 89 20 144/80 91 Nasal Cannula 2.0 98.0 02/11/18 04:00 80 02/11/18 02:30 82 22 96 Facial 90 02/11/18 01:35 86 26 99 Facial 80 02/11/18 01:35 84 02/11/18 00:00 100 02/11/18 00:00 97.3 79 22 133/71 96 Nasal Cannula 2.0 97.3 02/10/18 23:21 71 26 98 Facial 100 02/10/18 22:07 83 132/73 02/10/18 20:20 100 02/10/18 20:20 72 36 99 Facial 100 02/10/18 20:00 97 02/10/18 20:00 97.3 91 22 130/72 93 Nasal Cannula 2.0 97.3 02/10/18 18:30 Non-Rebreather 15.0 100 02/10/18 18:30 95 Non-Rebreather 15.0 100 Intake and Output 02/10/18 02/11/18 19:00 07:00 Intake Total 940.0 ml 877 ml Balance 940.0 ml 877 ml Free Water 400 ml 350 ml IV Total 110.0 ml Tube Feeding 400 ml 527 ml Other 30 ml # Voids 3 2 # Bowel Movements 3 1 General Appearance: other - mild resp distress Respiratory/Chest: rhonchi Cardiovascular: normal rate Abdomen: soft, non tender Laboratory Tests 02/11/18 04:04: White Blood Count 13.5H, Red Blood Count 5.35, Hemoglobin 14.7, Hematocrit 46.5 , Mean Corpuscular Volume 87, Mean Corpuscular Hemoglobin 27.4, Mean Corpuscular Hemoglobin Concent 31.5L, Red Cell Distribution Width 16.3H, Platelet Count 465H, Mean Platelet Volume 9.3, Neutrophils (%) (Auto) 68.8, Lymphocytes (%) (Auto) 24.3, Monocytes (%) (Auto) 4.9, Eosinophils (%) (Auto) 1.5, Basophils (%) (Auto) 0.5, Sodium Level 150H, Potassium Level 4.0, Chloride Level 111H, Carbon Dioxide Level 31, Anion Gap 8, Blood Urea Nitrogen 29H, Creatinine 0.7, Estimat Glomerular Filtration Rate , Glucose Level 119H, Calcium Level 9.3 02/11/18 13:37: Arterial Blood pH 7.438, Arterial Blood Partial Pressure CO2 46.1H, Arterial Blood Partial Pressure O2 58.2L, Arterial Blood HCO3 30.5H, Arterial Blood Oxygen Saturation 88.3L, Arterial Blood Base Excess 5.4, Kang Test Positive Current Medications Medications (Trade) Dose Ordered Sig/Rosetta Route PRN Reason Start Time Stop Time Status Last Admin Dose Admin Acetaminophen (Tylenol) 650 mg Q4H PRN GT Mild Pain/Temp > 100.5 02/09/18 16:00 03/10/18 15:59 Ascorbic Acid (Vitamin C) 500 mg DAILY GT 02/10/18 09:00 03/07/18 08:59 02/11/18 08:46 Clonidine HCl (Catapres Tab) 0.1 mg Q8H PRN GT SBP >160 02/09/18 17:00 03/09/18 16:59 02/09/18 17:31 Dextrose (Dextrose 50%) 25 ml STAT PRN IV Hypoglycemia 02/09/18 16:00 03/11/18 15:59 Dextrose (Dextrose 50%) 50 ml STAT PRN IV Hypoglycemia 02/09/18 16:00 03/11/18 15:59 Digoxin (Lanoxin) 0.125 mg DAILY GT 02/10/18 09:00 03/07/18 08:59 02/11/18 08:46 Diltiazem HCl (Cardizem) 30 mg EVERY 8 HOURS ORAL 02/10/18 22:00 03/12/18 21:59 02/11/18 14:22 Enoxaparin Sodium (Lovenox) 30 mg Q24H SUBQ 02/10/18 09:00 03/07/18 08:59 02/11/18 08:48 Famotidine (Pepcid) 20 mg DAILY GT 02/10/18 09:00 03/10/18 08:59 02/11/18 08:46 Insulin Aspart (NovoLOG) EVERY 6 HOURS SUBQ 02/09/18 18:00 03/07/18 06:29 02/11/18 12:25 Levofloxacin (Levaquin) 500 mg DAILY ORAL 02/11/18 09:00 02/18/18 08:59 02/11/18 08:46 Morphine Sulfate (Morphine Sulfate) 0.5 mg Q4H PRN IVP PAIN 4-10 02/09/18 16:00 02/12/18 15:59 Rashawn Vang MD Feb 11, 2018 17:21
[2018-02-11 20:00] VITALS: BP 110/60
[2018-02-12] VITALS: BP 135/60
[2018-02-12] MEDS: NovoLOG Insulin Flexpen SUBQ SCH ×4 (00:02→17:40)
[2018-02-12 04:00] VITALS: BP 144/79
[2018-02-12] MEDS: dilTIAZem HCl 30mg tab ORAL SCH ×3 (06:36→21:10)
[2018-02-12 07:23] LABS: BASOPHILS % (AUTO) 0.4 % (0.0-2.0); HEMATOCRIT 44.6 % (37.0-47.0); LYMPHOCYTES % (AUTO) 18.8 % (20.0-45.0); MEAN CORPUSCULAR VOLUME 86 FL (80-99); MONOCYTES % (AUTO) 4.6 % (1.0-10.0); NEUTROPHILS % (AUTO) 75.2 % (45.0-75.0); PLATELET COUNT 487 K/UL (150-450); RED BLOOD COUNT 5.15 M/UL (4.20-5.40); WHITE BLOOD COUNT 14.3 K/UL (4.8-10.8)
[2018-02-12 07:33] LABS: ANION GAP 9 mmol/L (5-15); BLOOD UREA NITROGEN 24 mg/dL (7-18); CARBON DIOXIDE 30 MMOL/L (21-32); CHLORIDE 106 MMOL/L (98-107); CREATININE 0.6 MG/DL (0.55-1.30); POTASSIUM 3.5 MMOL/L (3.5-5.1); SODIUM 144 MMOL/L (136-145)
[2018-02-12 08:00] VITALS: BP 141/83
--- NOTE | 2018-02-12 08:18 | Nephrology Progress Note ---
Assessment/Plan Assessment/Plan 1. Sepsis- HCAP - Abx per ID mgmt as WBC remains elevated. Levaquin 2. Scral Decub- wound care 3. Hypernatremia- continue free water thru GTube. Resolved 4. Resp FL- on BiPaP, defer mgmt to Pulm 5. AFib- on digoxin, and cardizem 6. DVT prophylaxis- lovenox Plan for DC when off BiPAP and stable Subjective Date patient seen: Feb 12, 2018 Time patient seen: 08:15 ROS Limited/Unobtainable: Yes Allergies: Coded Allergies: No Known Allergies (Verified , 03/10/07) Subjective Patient back on BiPAP. ABG being done Objective Last 24 Hour Vital Signs Date Time Temp Pulse Resp B/P (MAP) Pulse Ox O2 Delivery O2 Flow Rate FiO2 02/12/18 07:08 96 100 02/12/18 07:08 Bi-pap 100 02/12/18 07:08 82 38 96 Facial 100 02/12/18 06:36 98 133/73 02/12/18 04:56 76 33 95 Facial 100 02/12/18 04:00 97.5 82 24 144/79 97 Bi-pap 100 97.5 02/12/18 04:00 100 02/12/18 04:00 82 02/12/18 03:15 63 31 94 Facial 100 02/12/18 01:05 60 28 95 Facial 100 02/12/18 00:00 93 02/12/18 00:00 100 02/12/18 00:00 97.4 90 28 135/60 94 Bi-pap 100 97.4 02/11/18 22:41 62 25 96 Facial 100 02/11/18 21:51 99 120/65 02/11/18 21:05 68 32 93 Facial 100 02/11/18 20:00 107 02/11/18 20:00 98.0 71 32 110/60 94 Bi-pap 100 98.0 02/11/18 20:00 100 02/11/18 18:56 Bi-pap 100 02/11/18 18:56 62 28 90 Facial 100 02/11/18 18:56 90 Bi-pap 100 02/11/18 16:55 56 43 84 Facial 100 02/11/18 16:00 97.7 99 42 135/98 100 Bi-pap 100 97.7 02/11/18 16:00 109 02/11/18 15:07 97 47 85 Facial 100 02/11/18 14:22 65 132/67 02/11/18 12:57 105 37 86 Facial 100 02/11/18 12:00 98 02/11/18 12:00 98.2 96 22 132/92 98 Nasal Cannula 2.0 98.2 02/11/18 08:46 76 Intake and Output 02/11/18 02/12/18 19:00 07:00 Intake Total 1075 ml 1340 ml Output Total 75 ml 450 ml Balance 1000 ml 890 ml Free Water 400 ml IV Total 95 ml 860 ml Tube Feeding 480 ml 480 ml Other 100 ml Output Urine Total 75 ml 450 ml # Voids 3 # Bowel Movements 2 Laboratory Tests 02/11/18 13:37: Arterial Blood pH 7.438, Arterial Blood Partial Pressure CO2 46.1H, Arterial Blood Partial Pressure O2 58.2L, Arterial Blood HCO3 30.5H, Arterial Blood Oxygen Saturation 88.3L, Arterial Blood Base Excess 5.4, Kang Test Positive 02/12/18 04:40: White Blood Count 14.3H, Red Blood Count 5.15, Hemoglobin 14.0, Hematocrit 44.6 , Mean Corpuscular Volume 86, Mean Corpuscular Hemoglobin 27.1, Mean Corpuscular Hemoglobin Concent 31.3L, Red Cell Distribution Width 16.0H, Platelet Count 487H, Mean Platelet Volume 8.6, Neutrophils (%) (Auto) 75.2H, Lymphocytes (%) (Auto) 18.8L, Monocytes (%) (Auto) 4.6, Eosinophils (%) (Auto) 1.0, Basophils (%) (Auto) 0.4, Sodium Level 144, Potassium Level 3.5, Chloride Level 106, Carbon Dioxide Level 30, Anion Gap 9, Blood Urea Nitrogen 24H, Creatinine 0.6, Estimat Glomerular Filtration Rate , Glucose Level 134H, Calcium Level 9.0 Height (Feet): 4 Height (Inches): 0.00 Weight (Pounds): 96 General Appearance: no apparent distress, alert EENT: normal ENT inspection Neck: normal alignment, supple Cardiovascular: normal rate, regular rhythm Respiratory/Chest: rhonchi - bilaterally Abdomen: non tender, soft Edema: no edema noted Arm (L), no edema noted Arm (R), no edema noted Leg (L), no edema noted Leg (R), no edema noted Pedal (L), no edema noted Pedal (R), no edema noted Generalized Jorge Graf M.D. Feb 12, 2018 08:18
[2018-02-12] MEDS: Levofloxacin 500mg tab ORAL SCH (09:10)
[2018-02-12] MEDS: Digoxin 0.125mg tab GT SCH (09:10)
[2018-02-12] MEDS: Ascorbic Acid 500mg tab GT SCH (09:10)
[2018-02-12] MEDS: Enoxaparin 30mg Inj SUBQ SCH (09:16)
[2018-02-12 12:00] VITALS: BP 142/91
--- NOTE | 2018-02-12 13:15 | General Progress Note ---
Progress Note Progress Note Bioethics Consult The Bioethics Committee met at the request of Dr. Watson. Present were Jorge Love M.D. (the attending physician), Jeannette Combs (chief business officer), Laine Fisher (Director of Case Management), Nav Araiza M.D., Dr. Nano Spaulding. Ms. Chamorro is an 82 year old woman who is represented by the Public Guardian. She has had multiple recent admissions and now has respiratory failure and is on Bi-PAP and faces imminent intubation.. She [facility] a jail [facility] 7 years and has dementia, contractures, and has a baseline of being verbally unresponsive. Impression: It is the sense of the Committee that she has multiple serious chronic conditions that are not treatable and that will lead to her demise in the near term. We agree with Dr. Dior that further aggressive care would be futile and that natural would be the best outcome. We feel that it would be in the poatient's best interest to discontinue care that is artificially prolonging her life. The risk of ongoing aggressive care outweighs any possible benefits. Do Not Resuscitate/Do Not Intubate with comfort-based care would be completely appropriate in this case. In the event that she is intubated before receiving a response from the Public Guardian we feel that terminal extubation would be appropriate. It is also reasonable at this time to discontinue any NG or tube feedings. Rashawn Holman M.D. Bioethics Committee Chair Rashawn Holman MD Feb 12, 2018 13:15
--- NOTE | 2018-02-12 15:10 | Pulmonology Progress Note ---
Assessment/Plan Assessment/Plan IMPRESSION: 1. Probable pneumonia. CXR with scoliosis 2. Respiratory failure on BiPAP 3. Hypertension. 4. Diabetes mellitus. 5. Dehydration, hypernatremia 6. Tardive dyskinesia DISCUSSION: 1. Continue BiPAP 2. ABG better, Na better 3. Antibiotics. 4. D5W 5. DVT and GI prophylaxes. 6. Await CT chest r/o PE; this is an emergency and must be done HINA 7. Discussed with RN, soc service 8. Agree with recommendation for DNR outlined in Bioethics note Subjective ROS Limited/Unobtainable: Yes Allergies: Coded Allergies: No Known Allergies (Verified , 03/10/07) Objective Last 24 Hour Vital Signs Date Time Temp Pulse Resp B/P (MAP) Pulse Ox O2 Delivery O2 Flow Rate FiO2 02/12/18 14:44 77 21 98 Facial 100 02/12/18 13:52 84 126/83 02/12/18 12:33 82 24 96 Facial 100 02/12/18 12:00 100 02/12/18 12:00 82 02/12/18 12:00 97.8 90 24 142/91 98 Bi-pap 100 97.8 02/12/18 10:58 88 26 96 Facial 100 02/12/18 09:10 87 02/12/18 08:47 81 25 100 Facial 100 02/12/18 08:00 97.4 87 24 141/83 100 Bi-pap 100 97.4 02/12/18 08:00 97.4 87 25 141/83 97 Bi-pap 100 97.4 02/12/18 08:00 100 02/12/18 07:51 84 02/12/18 07:08 96 100 02/12/18 07:08 Bi-pap 100 02/12/18 07:08 82 38 96 Facial 100 02/12/18 06:36 98 133/73 02/12/18 04:56 76 33 95 Facial 100 02/12/18 04:00 97.5 82 24 144/79 97 Bi-pap 100 97.5 02/12/18 04:00 100 02/12/18 04:00 82 02/12/18 03:15 63 31 94 Facial 100 02/12/18 01:05 60 28 95 Facial 100 02/12/18 00:00 93 02/12/18 00:00 100 02/12/18 00:00 97.4 90 28 135/60 94 Bi-pap 100 97.4 02/11/18 22:41 62 25 96 Facial 100 02/11/18 21:51 99 120/65 02/11/18 21:05 68 32 93 Facial 100 02/11/18 20:00 107 02/11/18 20:00 98.0 71 32 110/60 94 Bi-pap 100 98.0 02/11/18 20:00 100 02/11/18 18:56 Bi-pap 100 02/11/18 18:56 62 28 90 Facial 100 02/11/18 18:56 90 Bi-pap 100 02/11/18 16:55 56 43 84 Facial 100 02/11/18 16:00 97.7 99 42 135/98 100 Bi-pap 100 97.7 02/11/18 16:00 109 Intake and Output 02/11/18 02/12/18 19:00 07:00 Intake Total 1075 ml 1340 ml Output Total 75 ml 450 ml Balance 1000 ml 890 ml Free Water 400 ml IV Total 95 ml 860 ml Tube Feeding 480 ml 480 ml Other 100 ml Output Urine Total 75 ml 450 ml # Voids 3 # Bowel Movements 2 General Appearance: no acute distress, cachetic HEENT: atraumatic Respiratory/Chest: rhonchi Cardiovascular: normal rate Laboratory Tests 02/12/18 04:40: White Blood Count 14.3H, Red Blood Count 5.15, Hemoglobin 14.0, Hematocrit 44.6 , Mean Corpuscular Volume 86, Mean Corpuscular Hemoglobin 27.1, Mean Corpuscular Hemoglobin Concent 31.3L, Red Cell Distribution Width 16.0H, Platelet Count 487H, Mean Platelet Volume 8.6, Neutrophils (%) (Auto) 75.2H, Lymphocytes (%) (Auto) 18.8L, Monocytes (%) (Auto) 4.6, Eosinophils (%) (Auto) 1.0, Basophils (%) (Auto) 0.4, Sodium Level 144, Potassium Level 3.5, Chloride Level 106, Carbon Dioxide Level 30, Anion Gap 9, Blood Urea Nitrogen 24H, Creatinine 0.6, Estimat Glomerular Filtration Rate , Glucose Level 134H, Calcium Level 9.0 02/12/18 07:58: Arterial Blood pH 7.490H, Arterial Blood Partial Pressure CO2 38.3, Arterial Blood Partial Pressure O2 61.4L, Arterial Blood HCO3 28.8H, Arterial Blood Oxygen Saturation 92.0, Arterial Blood Base Excess 5.3, Kang Test Positive Current Medications Medications (Trade) Dose Ordered Sig/Rosetta Route PRN Reason Start Time Stop Time Status Last Admin Dose Admin Acetaminophen (Tylenol) 650 mg Q4H PRN GT Mild Pain/Temp > 100.5 02/09/18 16:00 03/10/18 15:59 Ascorbic Acid (Vitamin C) 500 mg DAILY GT 02/10/18 09:00 03/07/18 08:59 02/12/18 09:10 Clonidine HCl (Catapres Tab) 0.1 mg Q8H PRN GT SBP >160 02/09/18 17:00 03/09/18 16:59 02/09/18 17:31 Dextrose 1,000 ml @ 75 mls/hr [id number] IV 02/11/18 17:30 03/13/18 17:29 02/12/18 06:37 Dextrose (Dextrose 50%) 25 ml STAT PRN IV Hypoglycemia 02/09/18 16:00 03/11/18 15:59 Dextrose (Dextrose 50%) 50 ml STAT PRN IV Hypoglycemia 02/09/18 16:00 03/11/18 15:59 Digoxin (Lanoxin) 0.125 mg DAILY GT 02/10/18 09:00 03/07/18 08:59 02/12/18 09:10 Diltiazem HCl (Cardizem) 30 mg EVERY 8 HOURS ORAL 02/10/18 22:00 03/12/18 21:59 02/12/18 13:52 Enoxaparin Sodium (Lovenox) 30 mg Q24H SUBQ 02/10/18 09:00 03/07/18 08:59 02/12/18 09:16 Famotidine (Pepcid) 20 mg DAILY GT 02/10/18 09:00 03/10/18 08:59 02/12/18 09:09 Insulin Aspart (NovoLOG) EVERY 6 HOURS SUBQ 02/09/18 18:00 03/07/18 06:29 02/12/18 11:46 Morphine Sulfate (Morphine Sulfate) 0.5 mg Q4H PRN IVP PAIN 4-10 02/09/18 16:00 02/12/18 15:59 Piperacillin Sod/ Tazobactam Sod 3.375 gm/Dextrose 110 ml @ 27.5 mls/hr EVERY 8 HOURS IVPB 02/12/18 14:00 02/17/18 13:59 Rashawn Bundy MD Feb 12, 2018 15:10
--- NOTE | 2018-02-12 15:20 | Infectious Diseases Prog Note ---
Assessment/Plan Problems: (1) HCAP (healthcare-associated pneumonia) Assessment & Plan: complicated with respiratory failure, continue zosyn empiric coverage for now , monitor CXR and ABG since she is hypoxemic. 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 continue local wound care and dressing changes as per hospital protocol . was evaluated by general surgery (4) Sepsis Assessment & Plan: ruled out with negative blood culture , on zosyn. (5) Acute respiratory failure Assessment & Plan: with hypoxemia , due to the above, back on BIPAP, pulmonary is following, monitor CXR and ABG Subjective ROS Limited/Unobtainable: Yes Allergies: Coded Allergies: No Known Allergies (Verified , 03/10/07) Subjective she was lying in bed, comfortable, on BIPAP machine again , afebrile, no cough or significant phlegm, no diarrhea Objective Vital Signs Last 24 Hour Vital Signs Date Time Temp Pulse Resp B/P (MAP) Pulse Ox O2 Delivery O2 Flow Rate FiO2 02/12/18 14:44 77 21 98 Facial 100 02/12/18 13:52 84 126/83 02/12/18 12:33 82 24 96 Facial 100 02/12/18 12:00 100 02/12/18 12:00 82 02/12/18 12:00 97.8 90 24 142/91 98 Bi-pap 100 97.8 02/12/18 10:58 88 26 96 Facial 100 02/12/18 09:10 87 02/12/18 08:47 81 25 100 Facial 100 02/12/18 08:00 97.4 87 24 141/83 100 Bi-pap 100 97.4 02/12/18 08:00 97.4 87 25 141/83 97 Bi-pap 100 97.4 02/12/18 08:00 100 02/12/18 07:51 84 02/12/18 07:08 96 100 02/12/18 07:08 Bi-pap 100 02/12/18 07:08 82 38 96 Facial 100 02/12/18 06:36 98 133/73 02/12/18 04:56 76 33 95 Facial 100 02/12/18 04:00 97.5 82 24 144/79 97 Bi-pap 100 97.5 02/12/18 04:00 100 02/12/18 04:00 82 02/12/18 03:15 63 31 94 Facial 100 02/12/18 01:05 60 28 95 Facial 100 02/12/18 00:00 93 02/12/18 00:00 100 02/12/18 00:00 97.4 90 28 135/60 94 Bi-pap 100 97.4 02/11/18 22:41 62 25 96 Facial 100 02/11/18 21:51 99 120/65 02/11/18 21:05 68 32 93 Facial 100 02/11/18 20:00 107 02/11/18 20:00 98.0 71 32 110/60 94 Bi-pap 100 98.0 02/11/18 20:00 100 02/11/18 18:56 Bi-pap 100 02/11/18 18:56 62 28 90 Facial 100 02/11/18 18:56 90 Bi-pap 100 02/11/18 16:55 56 43 84 Facial 100 02/11/18 16:00 97.7 99 42 135/98 100 Bi-pap 100 97.7 02/11/18 16:00 109 Height (Feet): 4 Height (Inches): 0.00 Weight (Pounds): 96 General Appearance: WD/WN, no acute distress HEENT: normocephalic, atraumatic, anicteric, mucous membranes moist, PERRL Respiratory/Chest: chest wall non-tender, no respiratory distress, no accessory muscle use, decreased breath sounds, crackles/rales Cardiovascular: normal peripheral pulses, normal rate, regular rhythm, no gallop/murmur, no JVD Abdomen: normal bowel sounds, soft, non tender, no organomegaly, non distended , no mass, no scars Genitourinary: normal external genitalia Extremities: no cyanosis, no clubbing Skin: no rash, no lesions, ulcers Laboratory Tests Test 02/12/18 04:40 02/12/18 07:58 White Blood Count 14.3 K/UL (4.8-10.8) H Red Blood Count 5.15 M/UL (4.20-5.40) Hemoglobin 14.0 G/DL (12.0-16.0) Hematocrit 44.6 % (37.0-47.0) Mean Corpuscular Volume 86 FL (80-99) Mean Corpuscular Hemoglobin 27.1 PG (27.0-31.0) Mean Corpuscular Hemoglobin Concent 31.3 G/DL (32.0-36.0) L Red Cell Distribution Width 16.0 % (11.6-14.8) H Platelet Count 487 K/UL (150-450) H Mean Platelet Volume 8.6 FL (6.5-10.1) Neutrophils (%) (Auto) 75.2 % (45.0-75.0) H Lymphocytes (%) (Auto) 18.8 % (20.0-45.0) L Monocytes (%) (Auto) 4.6 % (1.0-10.0) Eosinophils (%) (Auto) 1.0 % (0.0-3.0) Basophils (%) (Auto) 0.4 % (0.0-2.0) Sodium Level 144 MMOL/L (136-145) Potassium Level 3.5 MMOL/L (3.5-5.1) Chloride Level 106 MMOL/L (98-107) Carbon Dioxide Level 30 MMOL/L (21-32) Anion Gap 9 mmol/L (5-15) Blood Urea Nitrogen 24 mg/dL (7-18) H Creatinine 0.6 MG/DL (0.55-1.30) Estimat Glomerular Filtration Rate mL/min (>60) Glucose Level 134 MG/DL (74-106) H Calcium Level 9.0 MG/DL (8.5-10.1) Arterial Blood pH 7.490 (7.350-7.450) Arterial Blood Partial Pressure CO2 38.3 mmHg (35.0-45.0) Arterial Blood Partial Pressure O2 61.4 mmHg (75.0-100.0) L Arterial Blood HCO3 28.8 mmol/L (22.0-26.0) H Arterial Blood Oxygen Saturation 92.0 % (92.0-98.0) Arterial Blood Base Excess 5.3 Kang Test Positive Current Medications Medications (Trade) Dose Ordered Sig/Rosetta Route PRN Reason Start Time Stop Time Status Last Admin Dose Admin Acetaminophen (Tylenol) 650 mg Q4H PRN GT Mild Pain/Temp > 100.5 02/09/18 16:00 03/10/18 15:59 Ascorbic Acid (Vitamin C) 500 mg DAILY GT 02/10/18 09:00 03/07/18 08:59 02/12/18 09:10 Clonidine HCl (Catapres Tab) 0.1 mg Q8H PRN GT SBP >160 02/09/18 17:00 03/09/18 16:59 02/09/18 17:31 Dextrose 1,000 ml @ 75 mls/hr [id number] IV 02/11/18 17:30 03/13/18 17:29 02/12/18 06:37 Dextrose (Dextrose 50%) 25 ml STAT PRN IV Hypoglycemia 02/09/18 16:00 03/11/18 15:59 Dextrose (Dextrose 50%) 50 ml STAT PRN IV Hypoglycemia 02/09/18 16:00 03/11/18 15:59 Digoxin (Lanoxin) 0.125 mg DAILY GT 02/10/18 09:00 03/07/18 08:59 02/12/18 09:10 Diltiazem HCl (Cardizem) 30 mg EVERY 8 HOURS ORAL 02/10/18 22:00 03/12/18 21:59 02/12/18 13:52 Enoxaparin Sodium (Lovenox) 30 mg Q24H SUBQ 02/10/18 09:00 03/07/18 08:59 02/12/18 09:16 Famotidine (Pepcid) 20 mg DAILY GT 02/10/18 09:00 03/10/18 08:59 02/12/18 09:09 Insulin Aspart (NovoLOG) EVERY 6 HOURS SUBQ 02/09/18 18:00 03/07/18 06:29 02/12/18 11:46 Morphine Sulfate (Morphine Sulfate) 0.5 mg Q4H PRN IVP PAIN 4-10 02/09/18 16:00 02/12/18 15:59 Piperacillin Sod/ Tazobactam Sod 3.375 gm/Dextrose 110 ml @ 27.5 mls/hr EVERY 8 HOURS IVPB 02/12/18 16:00 02/19/18 15:59 Dom Hoffman M.D. Feb 12, 2018 15:20
[2018-02-12] MEDS ORDERED: Isovue-370 150ml vial INJ PRN (15:30)
--- NOTE | 2018-02-12 15:49 | Cardiac Electrophysiology PN ---
Assessment/Plan Assessment/Plan 1. Paroxysmal atrial fibrillation. Continue digoxin 0.125 mg daily and Cardizem 30 tid Now in sinus rhythm. Hold off on anticoagulation. Echocardiogram showed normal left ventricular systolic function. 2. Hypertension. On Cardizem 30 tid 3. Respiratory failure and sepsis, off BiPAP On Abx 4. Diabetes, on insulin. 5. Dementia. 6. Dysphagia, status post PEG placement. 7. Sacral decubitus stage III. FU by Dr. Austin. 8. History of stroke with aphasia and contractures. DW RN Subjective Subjective In and out of atrial fib. Nonverbal . On BIPAP. CT oredered Objective Last 24 Hour Vital Signs Date Time Temp Pulse Resp B/P (MAP) Pulse Ox O2 Delivery O2 Flow Rate FiO2 02/12/18 15:24 83 27 96 Facial 100 02/12/18 15:16 92 100 02/12/18 14:44 77 21 98 Facial 100 02/12/18 13:52 84 126/83 02/12/18 12:33 82 24 96 Facial 100 02/12/18 12:00 100 02/12/18 12:00 82 02/12/18 12:00 97.8 90 24 142/91 98 Bi-pap 100 97.8 02/12/18 10:58 88 26 96 Facial 100 02/12/18 09:10 87 02/12/18 08:47 81 25 100 Facial 100 02/12/18 08:00 97.4 87 24 141/83 100 Bi-pap 100 97.4 02/12/18 08:00 97.4 87 25 141/83 97 Bi-pap 100 97.4 02/12/18 08:00 100 02/12/18 07:51 84 02/12/18 07:08 96 100 02/12/18 07:08 Bi-pap 100 02/12/18 07:08 82 38 96 Facial 100 02/12/18 06:36 98 133/73 02/12/18 04:56 76 33 95 Facial 100 02/12/18 04:00 97.5 82 24 144/79 97 Bi-pap 100 97.5 02/12/18 04:00 100 02/12/18 04:00 82 02/12/18 03:15 63 31 94 Facial 100 02/12/18 01:05 60 28 95 Facial 100 02/12/18 00:00 93 02/12/18 00:00 100 02/12/18 00:00 97.4 90 28 135/60 94 Bi-pap 100 97.4 02/11/18 22:41 62 25 96 Facial 100 02/11/18 21:51 99 120/65 02/11/18 21:05 68 32 93 Facial 100 02/11/18 20:00 107 02/11/18 20:00 98.0 71 32 110/60 94 Bi-pap 100 98.0 02/11/18 20:00 100 02/11/18 18:56 Bi-pap 100 02/11/18 18:56 62 28 90 Facial 100 02/11/18 18:56 90 Bi-pap 100 02/11/18 16:55 56 43 84 Facial 100 02/11/18 16:00 97.7 99 42 135/98 100 Bi-pap 100 97.7 02/11/18 16:00 109 Intake and Output 02/11/18 02/12/18 19:00 07:00 Intake Total 1075 ml 1340 ml Output Total 75 ml 450 ml Balance 1000 ml 890 ml Free Water 400 ml IV Total 95 ml 860 ml Tube Feeding 480 ml 480 ml Other 100 ml Output Urine Total 75 ml 450 ml # Voids 3 # Bowel Movements 2 Laboratory Tests Test 02/12/18 04:40 02/12/18 07:58 White Blood Count 14.3 K/UL (4.8-10.8) H Red Blood Count 5.15 M/UL (4.20-5.40) Hemoglobin 14.0 G/DL (12.0-16.0) Hematocrit 44.6 % (37.0-47.0) Mean Corpuscular Volume 86 FL (80-99) Mean Corpuscular Hemoglobin 27.1 PG (27.0-31.0) Mean Corpuscular Hemoglobin Concent 31.3 G/DL (32.0-36.0) L Red Cell Distribution Width 16.0 % (11.6-14.8) H Platelet Count 487 K/UL (150-450) H Mean Platelet Volume 8.6 FL (6.5-10.1) Neutrophils (%) (Auto) 75.2 % (45.0-75.0) H Lymphocytes (%) (Auto) 18.8 % (20.0-45.0) L Monocytes (%) (Auto) 4.6 % (1.0-10.0) Eosinophils (%) (Auto) 1.0 % (0.0-3.0) Basophils (%) (Auto) 0.4 % (0.0-2.0) Sodium Level 144 MMOL/L (136-145) Potassium Level 3.5 MMOL/L (3.5-5.1) Chloride Level 106 MMOL/L (98-107) Carbon Dioxide Level 30 MMOL/L (21-32) Anion Gap 9 mmol/L (5-15) Blood Urea Nitrogen 24 mg/dL (7-18) H Creatinine 0.6 MG/DL (0.55-1.30) Estimat Glomerular Filtration Rate mL/min (>60) Glucose Level 134 MG/DL (74-106) H Calcium Level 9.0 MG/DL (8.5-10.1) Arterial Blood pH 7.490 (7.350-7.450) Arterial Blood Partial Pressure CO2 38.3 mmHg (35.0-45.0) Arterial Blood Partial Pressure O2 61.4 mmHg (75.0-100.0) L Arterial Blood HCO3 28.8 mmol/L (22.0-26.0) H Arterial Blood Oxygen Saturation 92.0 % (92.0-98.0) Arterial Blood Base Excess 5.3 Kang Test Positive Objective HEAD AND NECK: No JVD. On Nasal cannula LUNGS: Coarse rhonchi bilaterally. CARDIOVASCULAR: Tachy S1 and S2 with no gallop or murmur. ABDOMEN: Soft and status post G-tube. EXTREMITIES: No pitting edema. She has sacral decubitus. Emmanuel Edgar MD Feb 12, 2018 15:49
[2018-02-12 16:00] VITALS: BP 143/92
[2018-02-12] MEDS: Piperacillin/Tazobactam 3.375 GM in D5W 110 ML IVPB SCH ×2 (16:02→21:23)
--- NOTE | 2018-02-12 18:40 | Diagnostic Imaging Report ---
EXAM: CT Angiography Chest With Intravenous Contrast CLINICAL HISTORY: DYSPNEA TECHNIQUE: Axial computed tomographic angiography images of the chest with intravenous contrast using pulmonary embolism protocol. CTDI is 0.17 + 12.62 + 12.62 + 14.14 + 14.14 mGy and DLP is 596 mGy-cm. One or more of the following dose reduction techniques were used: automated exposure control, adjustment of the mA and/or kV according to patient size, use of iterative reconstruction technique. MIP reconstructed images were created and reviewed. COMPARISON: No relevant prior studies available. FINDINGS: Pulmonary arteries: No central pulmonary embolus. Cannot adequately assess for and exclude small emboli if present. Aorta: Atherosclerotic changes of the aorta and its branches. Lungs: Consolidation/aspiration in the left lower lobe. Patchy nodular infiltrates bilaterally. Debris in the airways. Pleural space: No effusion. No pneumothorax. Heart: No cardiomegaly. No pericardial effusion. Bones/joints: Chronic-appearing compression deformity of L1. Soft tissues: Unremarkable. Lymph nodes: Mediastinal adenopathy. Liver: Fatty liver. Tubes, lines and devices: Percutaneous g-tube. IMPRESSION: 1. No central pulmonary embolus. Cannot adequately assess for and exclude small emboli if present. 2. Consolidation/aspiration in the left lower lobe. Patchy nodular infiltrates bilaterally.
[2018-02-12 20:00] VITALS: BP 137/77
[2018-02-13] VITALS: BP 118/60
[2018-02-13 04:00] VITALS: BP 142/75
[2018-02-13 05:10] LABS: BASOPHILS % (AUTO) 0.6 % (0.0-2.0); EOSINOPHILS % (AUTO) 1.5 % (0.0-3.0); HEMATOCRIT 37.7 % (37.0-47.0); HEMOGLOBIN 12.6 G/DL (12.0-16.0); LYMPHOCYTES % (AUTO) 15.6 % (20.0-45.0); MEAN CORPUSCULAR VOLUME 86 FL (80-99); MONOCYTES % (AUTO) 3.9 % (1.0-10.0); NEUTROPHILS % (AUTO) 78.4 % (45.0-75.0); PLATELET COUNT 397 K/UL (150-450); RED CELL DISTRIBUTION WIDTH 15.7 % (11.6-14.8); WHITE BLOOD COUNT 15.3 K/UL (4.8-10.8)
[2018-02-13 05:13] LABS: ANION GAP 6 mmol/L (5-15); BLOOD UREA NITROGEN 17 mg/dL (7-18); CALCIUM 8.2 MG/DL (8.5-10.1); CARBON DIOXIDE 29 MMOL/L (21-32); CHLORIDE 101 MMOL/L (98-107); CREATININE 0.7 MG/DL (0.55-1.30); POTASSIUM 3.9 MMOL/L (3.5-5.1); SODIUM 136 MMOL/L (136-145)
[2018-02-13] MEDS: NovoLOG Insulin Flexpen SUBQ SCH ×4 (06:00→18:00)
[2018-02-13] MEDS: dilTIAZem HCl 30mg tab ORAL SCH ×3 (06:33→21:39)
[2018-02-13] MEDS: Piperacillin/Tazobactam 3.375 GM in D5W 110 ML IVPB SCH ×2 (06:35→13:09)
[2018-02-13 08:00] VITALS: BP 109/65
--- NOTE | 2018-02-13 08:02 | Nephrology Progress Note ---
Assessment/Plan Assessment/Plan 1. Sepsis- HCAP - Abx per ID mgmt. Levaquin 2. Scral Decub- wound care 3. Hypernatremia- resolved on free water 4. Resp FL- on BiPaP, defer mgmt to Pulm. Under bioethics review 5. AFib- on digoxin, and cardizem 6. DVT prophylaxis- lovenox Subjective Date patient seen: Feb 13, 2018 Time patient seen: 07:57 ROS Limited/Unobtainable: Yes Allergies: Coded Allergies: No Known Allergies (Verified , 03/10/07) Subjective Patient remains on BiPAP Objective Last 24 Hour Vital Signs Date Time Temp Pulse Resp B/P (MAP) Pulse Ox O2 Delivery O2 Flow Rate FiO2 02/13/18 07:05 Bi-pap 80 02/13/18 07:05 Bi-pap 02/13/18 07:05 74 23 95 Full Face 80 02/13/18 06:33 64 142/75 02/13/18 04:34 64 23 100 Full Face 80 02/13/18 04:00 100 02/13/18 04:00 97.5 64 20 142/75 97 Bi-pap 100 97.5 02/13/18 03:44 63 02/13/18 03:14 59 20 100 Full Face 80 02/13/18 00:40 64 23 100 Full Face 80 02/13/18 00:00 100 02/13/18 00:00 63 02/13/18 00:00 97.6 65 24 118/60 97 Bi-pap 100 97.6 02/12/18 23:01 72 16 100 Full Face 90 02/12/18 21:26 73 33 92 Facial 100 02/12/18 21:10 85 137/77 02/12/18 20:00 100 02/12/18 20:00 97.5 85 30 137/77 97 Bi-pap 100 97.5 02/12/18 19:21 78 02/12/18 19:17 Bi-pap 02/12/18 19:17 83 33 95 Facial 100 02/12/18 19:17 Bi-pap 02/12/18 17:23 87 33 93 Facial 100 02/12/18 16:00 100 02/12/18 16:00 86 02/12/18 16:00 97.4 90 24 143/92 97 Bi-pap 100 97.4 02/12/18 15:24 83 27 96 Facial 100 02/12/18 15:16 92 100 02/12/18 14:44 77 21 98 Facial 100 02/12/18 13:52 84 126/83 02/12/18 12:33 82 24 96 Facial 100 02/12/18 12:00 100 02/12/18 12:00 82 02/12/18 12:00 97.8 90 24 142/91 98 Bi-pap 100 97.8 02/12/18 10:58 88 26 96 Facial 100 02/12/18 09:10 87 02/12/18 08:47 81 25 100 Facial 100 02/12/18 08:00 97.4 87 24 141/83 100 Bi-pap 100 97.4 02/12/18 08:00 97.4 87 25 141/83 97 Bi-pap 100 97.4 02/12/18 08:00 100 Intake and Output 02/12/18 02/13/18 19:00 07:00 Intake Total 1427.5 ml 1560.0 ml Output Total 450 ml Balance 1427.5 ml 1110.0 ml Free Water 150 ml IV Total 947.5 ml 1010.0 ml Tube Feeding 480 ml 400 ml Output Urine Total 450 ml # Voids 3 # Bowel Movements 4 Laboratory Tests 02/12/18 07:58: Arterial Blood pH 7.490H, Arterial Blood Partial Pressure CO2 38.3, Arterial Blood Partial Pressure O2 61.4L, Arterial Blood HCO3 28.8H, Arterial Blood Oxygen Saturation 92.0, Arterial Blood Base Excess 5.3, Kang Test Positive 02/13/18 03:45: White Blood Count 15.3H, Red Blood Count 4.40, Hemoglobin 12.6, Hematocrit 37.7 , Mean Corpuscular Volume 86, Mean Corpuscular Hemoglobin 28.7, Mean Corpuscular Hemoglobin Concent 33.5, Red Cell Distribution Width 15.7H, Platelet Count 397, Mean Platelet Volume 8.8, Neutrophils (%) (Auto) 78.4H, Lymphocytes (%) (Auto) 15.6L, Monocytes (%) (Auto) 3.9, Eosinophils (%) (Auto) 1.5, Basophils (%) (Auto) 0.6, Sodium Level 136, Potassium Level 3.9, Chloride Level 101, Carbon Dioxide Level 29, Anion Gap 6, Blood Urea Nitrogen 17, Creatinine 0.7, Estimat Glomerular Filtration Rate , Glucose Level 130H, Calcium Level 8.2L Height (Feet): 4 Height (Inches): 0.00 Weight (Pounds): 95 General Appearance: no apparent distress EENT: normal ENT inspection Neck: normal alignment, supple Cardiovascular: normal rate, regular rhythm Respiratory/Chest: rhonchi - bilaterally Abdomen: non tender, soft Edema: no edema noted Arm (L), no edema noted Arm (R), no edema noted Leg (L), no edema noted Leg (R), no edema noted Pedal (L), no edema noted Pedal (R), no edema noted Generalized Jorge Graf M.D. Feb 13, 2018 08:02
[2018-02-13] MEDS: Ascorbic Acid 500mg tab GT SCH (09:41)
[2018-02-13] MEDS: Enoxaparin 30mg Inj SUBQ SCH (09:42)
[2018-02-13] MEDS: Digoxin 0.125mg tab GT SCH (09:43)
[2018-02-13] MEDS ORDERED: LORazepam 0.5mg tab ORAL PRN (10:30)
[2018-02-13] MEDS: LORazepam Inj 2mg/ml 1ml IV PRN (10:38)
[2018-02-13 12:00] VITALS: BP 134/56
--- NOTE | 2018-02-13 13:17 | Pulmonology Progress Note ---
Assessment/Plan Assessment/Plan 1. Probable pneumonia. CXR with scoliosis 2. Respiratory failure on BiPAP 3. Hypertension. 4. Diabetes mellitus. 5. Dehydration, hypernatremia 6. Tardive dyskinesia 7. hypoxemia DISCUSSION: 1. Continue BiPAP 2. FU labs 3. Antibiotics. 4. D5W 5. DVT and GI prophylaxes. 6. titrate o2 7. Discussed with RN, soc service 8. Agree with recommendation for DNR outlined in Bioethics note Subjective ROS Limited/Unobtainable: No Allergies: Coded Allergies: No Known Allergies (Verified , 03/10/07) Subjective obtunded on bipap episodes of desaturation no report cp nv or bleeding tolerating TF CT no PE LLL consolidation Objective Last 24 Hour Vital Signs Date Time Temp Pulse Resp B/P (MAP) Pulse Ox O2 Delivery O2 Flow Rate FiO2 02/13/18 12:00 100 02/13/18 10:46 81 25 95 Full Face 80 02/13/18 09:43 76 02/13/18 09:29 80 23 90 Full Face 80 02/13/18 09:29 80 22 Bi-pap 80 02/13/18 08:00 96.8 76 22 109/65 98 Bi-pap 100 96.8 02/13/18 08:00 77 02/13/18 08:00 100 02/13/18 07:05 Bi-pap 80 02/13/18 07:05 Bi-pap 02/13/18 07:05 74 23 95 Full Face 80 02/13/18 06:33 64 142/75 02/13/18 04:34 64 23 100 Full Face 80 02/13/18 04:00 100 02/13/18 04:00 97.5 64 20 142/75 97 Bi-pap 100 97.5 02/13/18 03:44 63 02/13/18 03:14 59 20 100 Full Face 80 02/13/18 00:40 64 23 100 Full Face 80 02/13/18 00:00 100 02/13/18 00:00 63 02/13/18 00:00 97.6 65 24 118/60 97 Bi-pap 100 97.6 02/12/18 23:01 72 16 100 Full Face 90 02/12/18 21:26 73 33 92 Facial 100 02/12/18 21:10 85 137/77 02/12/18 20:00 100 02/12/18 20:00 97.5 85 30 137/77 97 Bi-pap 100 97.5 02/12/18 19:21 78 02/12/18 19:17 Bi-pap 02/12/18 19:17 83 33 95 Facial 100 02/12/18 19:17 Bi-pap 02/12/18 17:23 87 33 93 Facial 100 02/12/18 16:00 100 02/12/18 16:00 86 02/12/18 16:00 97.4 90 24 143/92 97 Bi-pap 100 97.4 02/12/18 15:24 83 27 96 Facial 100 02/12/18 15:16 92 100 02/12/18 14:44 77 21 98 Facial 100 02/12/18 13:52 84 126/83 Intake and Output 02/12/18 02/13/18 19:00 07:00 Intake Total 1427.5 ml 1560.0 ml Output Total 450 ml Balance 1427.5 ml 1110.0 ml Free Water 150 ml IV Total 947.5 ml 1010.0 ml Tube Feeding 480 ml 400 ml Output Urine Total 450 ml # Voids 3 # Bowel Movements 4 General Appearance: cachetic HEENT: atraumatic, anicteric Respiratory/Chest: rhonchi Cardiovascular: normal rate, regular rhythm Abdomen: soft, non tender, non distended Neurologic/Psychiatric: disoriented, unresponsiveness Microbiology Date/Time Source Procedure Growth Status 02/12/18 15:00 Sputum Expectorated Gram Stain - Final Resulted 02/12/18 15:00 Sputum Expectorated Sputum Culture - Preliminary NO GROWTH AFTER 24 HOURS Resulted Laboratory Tests 02/13/18 03:45: White Blood Count 15.3H, Red Blood Count 4.40, Hemoglobin 12.6, Hematocrit 37.7 , Mean Corpuscular Volume 86, Mean Corpuscular Hemoglobin 28.7, Mean Corpuscular Hemoglobin Concent 33.5, Red Cell Distribution Width 15.7H, Platelet Count 397, Mean Platelet Volume 8.8, Neutrophils (%) (Auto) 78.4H, Lymphocytes (%) (Auto) 15.6L, Monocytes (%) (Auto) 3.9, Eosinophils (%) (Auto) 1.5, Basophils (%) (Auto) 0.6, Sodium Level 136, Potassium Level 3.9, Chloride Level 101, Carbon Dioxide Level 29, Anion Gap 6, Blood Urea Nitrogen 17, Creatinine 0.7, Estimat Glomerular Filtration Rate , Glucose Level 130H, Calcium Level 8.2L Current Medications Medications (Trade) Dose Ordered Sig/Rosetta Route PRN Reason Start Time Stop Time Status Last Admin Dose Admin Acetaminophen (Tylenol) 650 mg Q4H PRN GT Mild Pain/Temp > 100.5 02/09/18 16:00 03/10/18 15:59 Ascorbic Acid (Vitamin C) 500 mg DAILY GT 02/10/18 09:00 03/07/18 08:59 02/13/18 09:41 Clonidine HCl (Catapres Tab) 0.1 mg Q8H PRN GT SBP >160 02/09/18 17:00 03/09/18 16:59 02/09/18 17:31 Dextrose 1,000 ml @ 75 mls/hr [id number] IV 02/11/18 17:30 03/13/18 17:29 02/13/18 09:45 Dextrose (Dextrose 50%) 25 ml STAT PRN IV Hypoglycemia 02/09/18 16:00 03/11/18 15:59 Dextrose (Dextrose 50%) 50 ml STAT PRN IV Hypoglycemia 02/09/18 16:00 03/11/18 15:59 Digoxin (Lanoxin) 0.125 mg DAILY GT 02/10/18 09:00 03/07/18 08:59 02/13/18 09:43 Diltiazem HCl (Cardizem) 30 mg EVERY 8 HOURS ORAL 02/10/18 22:00 03/12/18 21:59 02/13/18 06:33 Enoxaparin Sodium (Lovenox) 30 mg Q24H SUBQ 02/10/18 09:00 03/07/18 08:59 02/13/18 09:42 Famotidine (Pepcid) 20 mg DAILY GT 02/10/18 09:00 03/10/18 08:59 02/13/18 09:41 Insulin Aspart (NovoLOG) EVERY 6 HOURS SUBQ 02/09/18 18:00 03/07/18 06:29 02/13/18 13:11 Iopamidol (Isovue-370 150ml) 150 ml NOW PRN INJ Radiology Procedure 02/12/18 15:30 02/14/18 15:29 Lorazepam (Ativan 2mg/ml 1ml) 1 mg Q4H PRN IV For Anxiety 02/13/18 10:30 02/20/18 10:29 02/13/18 10:38 Piperacillin Sod/ Tazobactam Sod 3.375 gm/Dextrose 110 ml @ 27.5 mls/hr EVERY 8 HOURS IVPB 02/12/18 16:00 02/19/18 15:59 02/13/18 13:09 Linnette Walton DO Feb 13, 2018 13:17
[2018-02-13 16:00] VITALS: BP 107/60
[2018-02-13] MEDS ORDERED: NS 500ML ONE (17:21)
[2018-02-13] MEDS ORDERED: Tubing IV Secondary IV ONE (17:21)
--- NOTE | 2018-02-13 18:32 | Cardiac Electrophysiology PN ---
Assessment/Plan Assessment/Plan 1. Paroxysmal atrial fibrillation. Continue digoxin 0.125 mg daily and Cardizem 30 tid Now in sinus rhythm. Hold off on anticoagulation. Echocardiogram showed normal left ventricular systolic function. 2. Hypertension. On Cardizem 30 tid 3. Respiratory failure and sepsis, on BiPAP and Abx 4. Diabetes, on insulin. 5. Dementia. 6. Dysphagia, status post PEG placement. 7. Sacral decubitus stage III. FU by Dr. Austin. 8. History of stroke with aphasia and contractures. DW RN Subjective Subjective In and out of atrial fib. Nonverbal . On BIPAP. Objective Last 24 Hour Vital Signs Date Time Temp Pulse Resp B/P (MAP) Pulse Ox O2 Delivery O2 Flow Rate FiO2 02/13/18 17:21 76 21 93 Full Face 100 02/13/18 16:00 100 02/13/18 16:00 79 02/13/18 16:00 97.7 80 28 107/60 92 Bi-pap 80 97.7 02/13/18 15:19 76 24 100 Full Face 100 02/13/18 14:27 81 134/56 02/13/18 12:30 81 23 99 Full Face 100 02/13/18 12:00 73 02/13/18 12:00 97.7 82 28 134/56 90 Bi-pap 100 97.7 02/13/18 12:00 100 02/13/18 10:46 81 25 95 Full Face 80 02/13/18 09:43 76 02/13/18 09:29 80 23 90 Full Face 80 02/13/18 09:29 80 22 Bi-pap 80 02/13/18 08:00 96.8 76 22 109/65 98 Bi-pap 100 96.8 02/13/18 08:00 77 02/13/18 08:00 100 02/13/18 07:05 Bi-pap 80 02/13/18 07:05 Bi-pap 02/13/18 07:05 74 23 95 Full Face 80 02/13/18 06:33 64 142/75 02/13/18 04:34 64 23 100 Full Face 80 02/13/18 04:00 100 02/13/18 04:00 97.5 64 20 142/75 97 Bi-pap 100 97.5 02/13/18 03:44 63 02/13/18 03:14 59 20 100 Full Face 80 02/13/18 00:40 64 23 100 Full Face 80 02/13/18 00:00 100 02/13/18 00:00 63 02/13/18 00:00 97.6 65 24 118/60 97 Bi-pap 100 97.6 02/12/18 23:01 72 16 100 Full Face 90 02/12/18 21:26 73 33 92 Facial 100 02/12/18 21:10 85 137/77 02/12/18 20:00 100 02/12/18 20:00 97.5 85 30 137/77 97 Bi-pap 100 97.5 02/12/18 19:21 78 02/12/18 19:17 Bi-pap 02/12/18 19:17 83 33 95 Facial 100 02/12/18 19:17 Bi-pap Intake and Output 02/12/18 02/13/18 19:00 07:00 Intake Total 1427.5 ml 1600.0 ml Output Total 450 ml Balance 1427.5 ml 1150.0 ml Free Water 150 ml IV Total 947.5 ml 1010.0 ml Tube Feeding 480 ml 440 ml Output Urine Total 450 ml # Voids 3 # Bowel Movements 4 Laboratory Tests Test 02/13/18 03:45 White Blood Count 15.3 K/UL (4.8-10.8) H Red Blood Count 4.40 M/UL (4.20-5.40) Hemoglobin 12.6 G/DL (12.0-16.0) Hematocrit 37.7 % (37.0-47.0) Mean Corpuscular Volume 86 FL (80-99) Mean Corpuscular Hemoglobin 28.7 PG (27.0-31.0) Mean Corpuscular Hemoglobin Concent 33.5 G/DL (32.0-36.0) Red Cell Distribution Width 15.7 % (11.6-14.8) H Platelet Count 397 K/UL (150-450) Mean Platelet Volume 8.8 FL (6.5-10.1) Neutrophils (%) (Auto) 78.4 % (45.0-75.0) H Lymphocytes (%) (Auto) 15.6 % (20.0-45.0) L Monocytes (%) (Auto) 3.9 % (1.0-10.0) Eosinophils (%) (Auto) 1.5 % (0.0-3.0) Basophils (%) (Auto) 0.6 % (0.0-2.0) Sodium Level 136 MMOL/L (136-145) Potassium Level 3.9 MMOL/L (3.5-5.1) Chloride Level 101 MMOL/L (98-107) Carbon Dioxide Level 29 MMOL/L (21-32) Anion Gap 6 mmol/L (5-15) Blood Urea Nitrogen 17 mg/dL (7-18) Creatinine 0.7 MG/DL (0.55-1.30) Estimat Glomerular Filtration Rate mL/min (>60) Glucose Level 130 MG/DL (74-106) H Calcium Level 8.2 MG/DL (8.5-10.1) L Microbiology Date/Time Source Procedure Growth Status 02/12/18 15:00 Sputum Expectorated Gram Stain - Final Resulted 02/12/18 15:00 Sputum Expectorated Sputum Culture - Preliminary NO GROWTH AFTER 24 HOURS Resulted Objective HEAD AND NECK: No JVD. On BIPAP LUNGS: Coarse rhonchi bilaterally. CARDIOVASCULAR: Tachy S1 and S2 with no gallop or murmur. ABDOMEN: Soft and status post G-tube. EXTREMITIES: No pitting edema. She has sacral decubitus. Emmanuel Edgar MD Feb 13, 2018 18:32
[2018-02-13] MEDS: Meropenem 500 MG in NS 55 ML IVPB SCH (18:58)
[2018-02-13 20:00] VITALS: BP 132/76
--- NOTE | 2018-02-13 20:24 | Infectious Diseases Prog Note ---
Assessment/Plan Problems: (1) HCAP (healthcare-associated pneumonia) Assessment & Plan: complicated with respiratory failure, with increasing in WBC , will switch zosyn to meropenem empiric coverage , monitor CXR and ABG . pulmonary is following (2) Catheter-associated urinary tract infection Assessment & Plan: S/P sarkar catheter exchange , now on meropenem empiric coverage (3) Sacral wound Assessment & Plan: colonized with ESBL producing E coli , klebsiella pneumonia and providenciae stuartii . continue local wound care and dressing changes as per hospital protocol . was evaluated by general surgery (4) Sepsis Assessment & Plan: ruled out with negative blood culture , on zosyn. (5) Acute respiratory failure Assessment & Plan: with hypoxemia , due to the above, back on BIPAP, pulmonary is following, monitor CXR and ABG Subjective ROS Limited/Unobtainable: Yes Allergies: Coded Allergies: No Known Allergies (Verified , 03/10/07) Subjective she was comfortable lying in bed , on BIPAP machine , afebrile, no cough or significant phlegm, no diarrhea Objective Vital Signs Last 24 Hour Vital Signs Date Time Temp Pulse Resp B/P (MAP) Pulse Ox O2 Delivery O2 Flow Rate FiO2 02/13/18 17:21 76 21 93 Full Face 100 02/13/18 16:00 100 02/13/18 16:00 79 02/13/18 16:00 97.7 80 28 107/60 92 Bi-pap 80 97.7 02/13/18 15:19 76 24 100 Full Face 100 02/13/18 14:27 81 134/56 02/13/18 12:30 81 23 99 Full Face 100 02/13/18 12:00 73 02/13/18 12:00 97.7 82 28 134/56 90 Bi-pap 100 97.7 02/13/18 12:00 100 02/13/18 10:46 81 25 95 Full Face 80 02/13/18 09:43 76 02/13/18 09:29 80 23 90 Full Face 80 02/13/18 09:29 80 22 Bi-pap 80 02/13/18 08:00 96.8 76 22 109/65 98 Bi-pap 100 96.8 02/13/18 08:00 77 02/13/18 08:00 100 02/13/18 07:05 Bi-pap 80 02/13/18 07:05 Bi-pap 02/13/18 07:05 74 23 95 Full Face 80 02/13/18 06:33 64 142/75 02/13/18 04:34 64 23 100 Full Face 80 02/13/18 04:00 100 02/13/18 04:00 97.5 64 20 142/75 97 Bi-pap 100 97.5 02/13/18 03:44 63 02/13/18 03:14 59 20 100 Full Face 80 02/13/18 00:40 64 23 100 Full Face 80 02/13/18 00:00 100 02/13/18 00:00 63 02/13/18 00:00 97.6 65 24 118/60 97 Bi-pap 100 97.6 02/12/18 23:01 72 16 100 Full Face 90 02/12/18 21:26 73 33 92 Facial 100 02/12/18 21:10 85 137/77 Height (Feet): 4 Height (Inches): 0.00 Weight (Pounds): 95 General Appearance: WD/WN, no acute distress, cachetic HEENT: normocephalic, atraumatic, anicteric, mucous membranes moist, PERRL Respiratory/Chest: chest wall non-tender, no respiratory distress, no accessory muscle use, decreased breath sounds, expiratory wheezing Cardiovascular: normal peripheral pulses, normal rate, regular rhythm, no gallop/murmur, no JVD Abdomen: normal bowel sounds, soft, non tender, no organomegaly, non distended , no mass, no scars Genitourinary: normal external genitalia Extremities: no cyanosis, no clubbing Skin: no rash, no lesions, ulcers Neurologic/Psychiatric: alert, unresponsiveness Lymphatic: no neck adenopathy, no groin adenopathy Musculoskeletal: normal muscle bulk Microbiology Date/Time Source Procedure Growth Status 02/12/18 15:00 Sputum Expectorated Gram Stain - Final Resulted 02/12/18 15:00 Sputum Expectorated Sputum Culture - Preliminary NO GROWTH AFTER 24 HOURS Resulted Laboratory Tests Test 02/13/18 03:45 White Blood Count 15.3 K/UL (4.8-10.8) H Red Blood Count 4.40 M/UL (4.20-5.40) Hemoglobin 12.6 G/DL (12.0-16.0) Hematocrit 37.7 % (37.0-47.0) Mean Corpuscular Volume 86 FL (80-99) Mean Corpuscular Hemoglobin 28.7 PG (27.0-31.0) Mean Corpuscular Hemoglobin Concent 33.5 G/DL (32.0-36.0) Red Cell Distribution Width 15.7 % (11.6-14.8) H Platelet Count 397 K/UL (150-450) Mean Platelet Volume 8.8 FL (6.5-10.1) Neutrophils (%) (Auto) 78.4 % (45.0-75.0) H Lymphocytes (%) (Auto) 15.6 % (20.0-45.0) L Monocytes (%) (Auto) 3.9 % (1.0-10.0) Eosinophils (%) (Auto) 1.5 % (0.0-3.0) Basophils (%) (Auto) 0.6 % (0.0-2.0) Sodium Level 136 MMOL/L (136-145) Potassium Level 3.9 MMOL/L (3.5-5.1) Chloride Level 101 MMOL/L (98-107) Carbon Dioxide Level 29 MMOL/L (21-32) Anion Gap 6 mmol/L (5-15) Blood Urea Nitrogen 17 mg/dL (7-18) Creatinine 0.7 MG/DL (0.55-1.30) Estimat Glomerular Filtration Rate mL/min (>60) Glucose Level 130 MG/DL (74-106) H Calcium Level 8.2 MG/DL (8.5-10.1) L Current Medications Medications (Trade) Dose Ordered Sig/Rosetta Route PRN Reason Start Time Stop Time Status Last Admin Dose Admin Acetaminophen (Tylenol) 650 mg Q4H PRN GT Mild Pain/Temp > 100.5 02/09/18 16:00 03/10/18 15:59 Ascorbic Acid (Vitamin C) 500 mg DAILY GT 02/10/18 09:00 03/07/18 08:59 02/13/18 09:41 Clonidine HCl (Catapres Tab) 0.1 mg Q8H PRN GT SBP >160 02/09/18 17:00 03/09/18 16:59 02/09/18 17:31 Dextrose 1,000 ml @ 75 mls/hr [id number] IV 6/28/18 17:30 03/13/18 17:29 02/13/18 09:45 Dextrose (Dextrose 50%) 25 ml STAT PRN IV Hypoglycemia 02/09/18 16:00 03/11/18 15:59 Dextrose (Dextrose 50%) 50 ml STAT PRN IV Hypoglycemia 02/09/18 16:00 03/11/18 15:59 Digoxin (Lanoxin) 0.125 mg DAILY GT 02/10/18 09:00 03/07/18 08:59 02/13/18 09:43 Diltiazem HCl (Cardizem) 30 mg EVERY 8 HOURS ORAL 02/10/18 22:00 03/12/18 21:59 02/13/18 14:27 Enoxaparin Sodium (Lovenox) 30 mg Q24H SUBQ 02/10/18 09:00 03/07/18 08:59 02/13/18 09:42 Famotidine (Pepcid) 20 mg DAILY GT 02/10/18 09:00 03/10/18 08:59 02/13/18 09:41 Insulin Aspart (NovoLOG) EVERY 6 HOURS SUBQ 02/09/18 18:00 03/07/18 06:29 02/13/18 13:11 Iopamidol (Isovue-370 150ml) 150 ml NOW PRN INJ Radiology Procedure 02/12/18 15:30 02/14/18 15:29 Lorazepam (Ativan 2mg/ml 1ml) 1 mg Q4H PRN IV For Anxiety 02/13/18 10:30 02/20/18 10:29 02/13/18 10:38 Meropenem 500 mg/ Sodium Chloride 55 ml @ 110 mls/hr Q12H IVPB 02/13/18 18:30 02/18/18 18:29 02/13/18 18:58 Dom Hoffman M.D. Feb 13, 2018 20:24
[2018-02-14] VITALS: BP 145/62
[2018-02-14 04:00] VITALS: BP 128/78
[2018-02-14] MEDS: LORazepam Inj 2mg/ml 1ml IV PRN ×3 (04:37→22:15)
[2018-02-14 05:38] LABS: HEMATOCRIT 39.6 % (37.0-47.0); HEMOGLOBIN 12.8 G/DL (12.0-16.0); MEAN CORPUSCULAR VOLUME 86 FL (80-99); PLATELET COUNT 431 K/UL (150-450); RED CELL DISTRIBUTION WIDTH 16.2 % (11.6-14.8); WHITE BLOOD COUNT 19.5 K/UL (4.8-10.8)
[2018-02-14] MEDS: Meropenem 500 MG in NS 55 ML IVPB SCH ×2 (05:57→17:53)
[2018-02-14] MEDS: dilTIAZem HCl 30mg tab ORAL SCH ×3 (05:57→21:40)
[2018-02-14] MEDS: NovoLOG Insulin Flexpen SUBQ SCH ×4 (06:00→17:54)
[2018-02-14 06:15] LABS: ANION GAP 7 mmol/L (5-15); BLOOD UREA NITROGEN 16 mg/dL (7-18); CALCIUM 8.9 MG/DL (8.5-10.1); CARBON DIOXIDE 26 MMOL/L (21-32); CHLORIDE 100 MMOL/L (98-107); CREATININE 0.6 MG/DL (0.55-1.30); SODIUM 133 MMOL/L (136-145)
[2018-02-14 08:00] VITALS: BP 119/49
[2018-02-14] MEDS: Digoxin 0.125mg tab GT SCH (08:36)
[2018-02-14] MEDS: Ascorbic Acid 500mg tab GT SCH (08:36)
[2018-02-14] MEDS: Enoxaparin 30mg Inj SUBQ SCH (08:43)
--- NOTE | 2018-02-14 08:48 | Nephrology Progress Note ---
Assessment/Plan Assessment/Plan 1. Sepsis- HCAP - Abx per ID mgmt as bioethics decision pending court decision 2. Scral Decub- wound care. Appreciate Gen Surg 3. Hypernatremia- DC free water as Na down now to 133 4. Resp FL- on BiPaP, defer mgmt to Pulm. Under bioethics review 5. AFib- on digoxin, and cardizem 6. DVT prophylaxis- lovenox Subjective Date patient seen: Feb 14, 2018 Time patient seen: 08:45 ROS Limited/Unobtainable: Yes Allergies: Coded Allergies: No Known Allergies (Verified , 03/10/07) Subjective Patient remains on BiPAP. No current change Objective Last 24 Hour Vital Signs Date Time Temp Pulse Resp B/P (MAP) Pulse Ox O2 Delivery O2 Flow Rate FiO2 02/14/18 08:36 66 02/14/18 06:41 Bi-pap 100 02/14/18 06:41 91 20 100 Facial 100 02/14/18 06:41 100 Bi-pap 02/14/18 05:57 75 128/78 02/14/18 05:24 75 21 95 Facial 100 02/14/18 04:00 100 02/14/18 04:00 97.2 84 23 128/78 95 Bi-pap 80 97.2 02/14/18 03:46 88 02/14/18 03:30 72 23 94 Full Face 100 02/14/18 01:00 66 20 100 Facial 100 02/14/18 00:00 74 02/14/18 00:00 97.3 84 26 145/62 97 Bi-pap 80 97.3 02/14/18 00:00 100 02/13/18 23:12 69 20 100 Facial 100 02/13/18 21:39 85 132/76 02/13/18 21:01 77 39 92 Facial 100 02/13/18 20:00 97.5 85 26 132/76 97 Bi-pap 80 97.5 02/13/18 20:00 75 02/13/18 20:00 100 02/13/18 19:30 98 Bi-pap 02/13/18 19:30 Bi-pap 02/13/18 19:30 71 25 92 Facial 100 02/13/18 17:21 76 21 93 Full Face 100 02/13/18 16:00 100 02/13/18 16:00 79 02/13/18 16:00 97.7 80 28 107/60 92 Bi-pap 80 97.7 02/13/18 15:19 76 24 100 Full Face 100 02/13/18 14:27 81 134/56 02/13/18 12:30 81 23 99 Full Face 100 02/13/18 12:00 73 02/13/18 12:00 97.7 82 28 134/56 90 Bi-pap 100 97.7 02/13/18 12:00 100 02/13/18 10:46 81 25 95 Full Face 80 02/13/18 09:43 76 02/13/18 09:29 80 23 90 Full Face 80 02/13/18 09:29 80 22 Bi-pap 80 Intake and Output 02/13/18 02/14/18 19:00 07:00 Intake Total 1511.0 ml 2245 ml Output Total 650 ml 650 ml Balance 861.0 ml 1595 ml Free Water 200 ml 300 ml IV Total 831.0 ml 1465 ml Tube Feeding 480 ml 480 ml Output Urine Total 650 ml 650 ml # Bowel Movements 1 1 Laboratory Tests 02/14/18 04:35: White Blood Count 19.5H, Red Blood Count 4.60, Hemoglobin 12.8, Hematocrit 39.6 , Mean Corpuscular Volume 86, Mean Corpuscular Hemoglobin 27.9, Mean Corpuscular Hemoglobin Concent 32.4, Red Cell Distribution Width 16.2H, Platelet Count 431, Mean Platelet Volume 9.2, Neutrophils (%) (Auto) , Lymphocytes (%) (Auto) , Monocytes (%) (Auto) , Eosinophils (%) (Auto) , Basophils (%) (Auto) , Neutrophils % (Manual) [Pending], Lymphocytes % (Manual) [Pending], Platelet Estimate [Pending], Platelet Morphology [Pending], Sodium Level 133L, Potassium Level 4.0, Chloride Level 100, Carbon Dioxide Level 26, Anion Gap 7, Blood Urea Nitrogen 16, Creatinine 0.6, Estimat Glomerular Filtration Rate , Glucose Level 147H, Calcium Level 8.9, Digoxin Level 0.9 Height (Feet): 4 Height (Inches): 0.00 Weight (Pounds): 96 General Appearance: no apparent distress, confused EENT: normal ENT inspection Neck: normal alignment, supple Cardiovascular: normal rate, regular rhythm Respiratory/Chest: rhonchi - bilaterally Abdomen: non tender, soft Extremities: non-tender Edema: no edema noted Arm (L), no edema noted Arm (R), no edema noted Leg (L), no edema noted Leg (R), no edema noted Pedal (L), no edema noted Pedal (R), no edema noted Generalized Jorge Graf M.D. Feb 14, 2018 08:48
[2018-02-14] MEDS: Vancomycin 750mg/NS 250ml IVPB SCH (10:47)
[2018-02-14 12:00] VITALS: BP 111/59
[2018-02-14] MEDS ORDERED: Tubing IV Secondary IV ONE (13:38)
--- NOTE | 2018-02-14 13:59 | Infectious Diseases Prog Note ---
Assessment/Plan Problems: (1) HCAP (healthcare-associated pneumonia) Assessment & Plan: complicated with respiratory failure, with increasing in WBC , on meropenem empiric coverage , and vancomycin to cover for gram positive cocci bacteremia , will monitor CXR and ABG . pulmonary is following (2) Catheter-associated urinary tract infection Assessment & Plan: S/P sarkar catheter exchange , now on meropenem empiric coverage (3) Sacral wound Assessment & Plan: colonized with ESBL producing E coli , klebsiella pneumonia and providenciae stuartii . continue local wound care and dressing changes as per hospital protocol . was evaluated by general surgery (4) Sepsis Assessment & Plan: with gram positive cocci in clusters suspect staphylococcus spp , will start vancomycin empiric coverage pending culture results (5) Acute respiratory failure Assessment & Plan: with hypoxemia , due to the above, back on BIPAP, pulmonary is following, monitor CXR and ABG Subjective ROS Limited/Unobtainable: Yes Allergies: Coded Allergies: No Known Allergies (Verified , 03/10/07) Subjective she was quiet, and comfortable lying in bed , still on BIPAP machine , afebrile , no cough or significant phlegm, no diarrhea Objective Vital Signs Last 24 Hour Vital Signs Date Time Temp Pulse Resp B/P (MAP) Pulse Ox O2 Delivery O2 Flow Rate FiO2 02/14/18 13:15 73 23 95 Facial 100 02/14/18 12:00 85 02/14/18 12:00 100 02/14/18 12:00 97.2 89 24 111/59 96 Bi-pap 100 97.2 02/14/18 10:59 85 24 95 Facial 100 02/14/18 08:55 77 21 99 Facial 80 02/14/18 08:36 66 02/14/18 08:00 70 02/14/18 08:00 97.2 75 26 119/49 100 Bi-pap 100 97.2 02/14/18 08:00 100 02/14/18 06:41 Bi-pap 100 02/14/18 06:41 91 20 100 Facial 100 02/14/18 06:41 100 Bi-pap 02/14/18 05:57 75 128/78 02/14/18 05:24 75 21 95 Facial 100 02/14/18 04:00 100 02/14/18 04:00 97.2 84 23 128/78 95 Bi-pap 80 97.2 02/14/18 03:46 88 02/14/18 03:30 72 23 94 Full Face 100 02/14/18 01:00 66 20 100 Facial 100 02/14/18 00:00 74 02/14/18 00:00 97.3 84 26 145/62 97 Bi-pap 80 97.3 02/14/18 00:00 100 02/13/18 23:12 69 20 100 Facial 100 02/13/18 21:39 85 132/76 02/13/18 21:01 77 39 92 Facial 100 02/13/18 20:00 97.5 85 26 132/76 97 Bi-pap 80 97.5 02/13/18 20:00 75 02/13/18 20:00 100 02/13/18 19:30 98 Bi-pap 02/13/18 19:30 Bi-pap 02/13/18 19:30 71 25 92 Facial 100 02/13/18 17:21 76 21 93 Full Face 100 02/13/18 16:00 100 02/13/18 16:00 79 02/13/18 16:00 97.7 80 28 107/60 92 Bi-pap 80 97.7 02/13/18 15:19 76 24 100 Full Face 100 02/13/18 14:27 81 134/56 Height (Feet): 4 Height (Inches): 0.00 Weight (Pounds): 96 General Appearance: WD/WN, no acute distress, cachetic HEENT: normocephalic, atraumatic, anicteric, mucous membranes moist, PERRL Respiratory/Chest: chest wall non-tender, no respiratory distress, no accessory muscle use, decreased breath sounds, expiratory wheezing Cardiovascular: normal peripheral pulses, normal rate, regular rhythm, no gallop/murmur, no JVD Abdomen: normal bowel sounds, soft, non tender, no organomegaly, non distended , no mass, no scars Extremities: no cyanosis, no clubbing Skin: no rash, no lesions, no ulcers Neurologic/Psychiatric: alert, unresponsiveness Lymphatic: no neck adenopathy, no groin adenopathy Microbiology Date/Time Source Procedure Growth Status 02/12/18 18:30 Blood Blood Culture - Preliminary NO GROWTH AFTER 24 HOURS Resulted 02/12/18 18:15 Blood Blood Culture - Preliminary Resulted 02/12/18 15:00 Sputum Expectorated Gram Stain - Final Complete 02/12/18 15:00 Sputum Expectorated Sputum Culture - Final NORMAL UPPER RESPIRATORY LAITH PRESENT Complete Laboratory Tests Test 02/14/18 04:35 White Blood Count 19.5 K/UL (4.8-10.8) H Red Blood Count 4.60 M/UL (4.20-5.40) Hemoglobin 12.8 G/DL (12.0-16.0) Hematocrit 39.6 % (37.0-47.0) Mean Corpuscular Volume 86 FL (80-99) Mean Corpuscular Hemoglobin 27.9 PG (27.0-31.0) Mean Corpuscular Hemoglobin Concent 32.4 G/DL (32.0-36.0) Red Cell Distribution Width 16.2 % (11.6-14.8) H Platelet Count 431 K/UL (150-450) Mean Platelet Volume 9.2 FL (6.5-10.1) Neutrophils (%) (Auto) % (45.0-75.0) Lymphocytes (%) (Auto) % (20.0-45.0) Monocytes (%) (Auto) % (1.0-10.0) Eosinophils (%) (Auto) % (0.0-3.0) Basophils (%) (Auto) % (0.0-2.0) Differential Total Cells Counted 100 Neutrophils % (Manual) 88 % (45-75) H Lymphocytes % (Manual) 11 % (20-45) L Monocytes % (Manual) 1 % (1-10) Eosinophils % (Manual) 0 % (0-3) Basophils % (Manual) 0 % (0-2) Band Neutrophils 0 % (0-8) Platelet Estimate Adequate Platelet Morphology Giant Platelets 1+ Anisocytosis 1+ Sodium Level 133 MMOL/L (136-145) L Potassium Level 4.0 MMOL/L (3.5-5.1) Chloride Level 100 MMOL/L (98-107) Carbon Dioxide Level 26 MMOL/L (21-32) Anion Gap 7 mmol/L (5-15) Blood Urea Nitrogen 16 mg/dL (7-18) Creatinine 0.6 MG/DL (0.55-1.30) Estimat Glomerular Filtration Rate mL/min (>60) Glucose Level 147 MG/DL (74-106) H Calcium Level 8.9 MG/DL (8.5-10.1) Digoxin Level 0.9 NG/ML (0.9-2.0) Current Medications Medications (Trade) Dose Ordered Sig/Rosetta Route PRN Reason Start Time Stop Time Status Last Admin Dose Admin Acetaminophen (Tylenol) 650 mg Q4H PRN GT Mild Pain/Temp > 100.5 02/09/18 16:00 03/10/18 15:59 Ascorbic Acid (Vitamin C) 500 mg DAILY GT 02/10/18 09:00 03/07/18 08:59 02/14/18 08:36 Clonidine HCl (Catapres Tab) 0.1 mg Q8H PRN GT SBP >160 02/09/18 17:00 03/09/18 16:59 02/09/18 17:31 Dextrose 1,000 ml @ 75 mls/hr [id number] IV 02/11/18 17:30 03/13/18 17:29 02/14/18 06:33 Dextrose (Dextrose 50%) 25 ml STAT PRN IV Hypoglycemia 02/09/18 16:00 03/11/18 15:59 Dextrose (Dextrose 50%) 50 ml STAT PRN IV Hypoglycemia 02/09/18 16:00 03/11/18 15:59 Digoxin (Lanoxin) 0.125 mg DAILY GT 02/10/18 09:00 03/07/18 08:59 02/14/18 08:36 Diltiazem HCl (Cardizem) 30 mg EVERY 8 HOURS ORAL 02/10/18 22:00 03/12/18 21:59 02/14/18 05:57 Enoxaparin Sodium (Lovenox) 30 mg Q24H SUBQ 02/10/18 09:00 03/07/18 08:59 02/14/18 08:43 Famotidine (Pepcid) 20 mg DAILY GT 02/10/18 09:00 03/10/18 08:59 02/14/18 08:36 Insulin Aspart (NovoLOG) EVERY 6 HOURS SUBQ 02/09/18 18:00 03/07/18 06:29 02/14/18 13:15 Iopamidol (Isovue-370 150ml) 150 ml NOW PRN INJ Radiology Procedure 02/12/18 15:30 02/14/18 15:29 Lorazepam (Ativan 2mg/ml 1ml) 1 mg Q4H PRN IV For Anxiety 02/13/18 10:30 02/20/18 10:29 02/14/18 10:48 Meropenem 500 mg/ Sodium Chloride 55 ml @ 110 mls/hr Q12H IVPB 02/13/18 18:30 02/18/18 18:29 02/14/18 05:57 Vancomycin HCl (Vanco rx to dose) 1 ea DAILY PRN MISC Per rx protocol 02/14/18 08:00 03/16/18 07:59 Vancomycin/Sodium Chloride 250 ml @ 166.667 mls/hr Q24H IVPB 02/14/18 10:00 02/19/18 09:59 02/14/18 10:47 Dom Hoffman M.D. Feb 14, 2018 13:59
--- NOTE | 2018-02-14 14:47 | Cardiac Electrophysiology PN ---
Assessment/Plan Assessment/Plan 1. Paroxysmal atrial fibrillation. Continue digoxin 0.125 mg daily and Cardizem 30 tid Now in sinus rhythm. Hold off on anticoagulation. Echocardiogram Nl EF 2. Hypertension. On Cardizem 30 tid 3. Respiratory failure and sepsis, on BiPAP and Abx 4. Diabetes, on insulin. 5. Dementia. 6. Dysphagia, status post PEG placement. 7. Sacral decubitus stage III. FU by Dr. Austin. 8. History of stroke with aphasia and contractures. DW RN Subjective Subjective In and out of atrial fib. Nonverbal. On BIPAP.RN Objective Last 24 Hour Vital Signs Date Time Temp Pulse Resp B/P (MAP) Pulse Ox O2 Delivery O2 Flow Rate FiO2 02/14/18 14:30 89 111/59 02/14/18 13:15 73 23 95 Facial 100 02/14/18 12:00 85 02/14/18 12:00 100 02/14/18 12:00 97.2 89 24 111/59 96 Bi-pap 100 97.2 02/14/18 10:59 85 24 95 Facial 100 02/14/18 08:55 77 21 99 Facial 80 02/14/18 08:36 66 02/14/18 08:00 70 02/14/18 08:00 97.2 75 26 119/49 100 Bi-pap 100 97.2 02/14/18 08:00 100 02/14/18 06:41 Bi-pap 100 02/14/18 06:41 91 20 100 Facial 100 02/14/18 06:41 100 Bi-pap 02/14/18 05:57 75 128/78 02/14/18 05:24 75 21 95 Facial 100 02/14/18 04:00 100 02/14/18 04:00 97.2 84 23 128/78 95 Bi-pap 80 97.2 02/14/18 03:46 88 02/14/18 03:30 72 23 94 Full Face 100 02/14/18 01:00 66 20 100 Facial 100 02/14/18 00:00 74 02/14/18 00:00 97.3 84 26 145/62 97 Bi-pap 80 97.3 02/14/18 00:00 100 02/13/18 23:12 69 20 100 Facial 100 02/13/18 21:39 85 132/76 02/13/18 21:01 77 39 92 Facial 100 02/13/18 20:00 97.5 85 26 132/76 97 Bi-pap 80 97.5 02/13/18 20:00 75 02/13/18 20:00 100 02/13/18 19:30 98 Bi-pap 02/13/18 19:30 Bi-pap 02/13/18 19:30 71 25 92 Facial 100 02/13/18 17:21 76 21 93 Full Face 100 02/13/18 16:00 100 02/13/18 16:00 79 02/13/18 16:00 97.7 80 28 107/60 92 Bi-pap 80 97.7 02/13/18 15:19 76 24 100 Full Face 100 Intake and Output 02/13/18 02/14/18 19:00 07:00 Intake Total 1511.0 ml 2245 ml Output Total 650 ml 650 ml Balance 861.0 ml 1595 ml Free Water 200 ml 300 ml IV Total 831.0 ml 1465 ml Tube Feeding 480 ml 480 ml Output Urine Total 650 ml 650 ml # Bowel Movements 1 1 Laboratory Tests Test 02/14/18 04:35 White Blood Count 19.5 K/UL (4.8-10.8) H Red Blood Count 4.60 M/UL (4.20-5.40) Hemoglobin 12.8 G/DL (12.0-16.0) Hematocrit 39.6 % (37.0-47.0) Mean Corpuscular Volume 86 FL (80-99) Mean Corpuscular Hemoglobin 27.9 PG (27.0-31.0) Mean Corpuscular Hemoglobin Concent 32.4 G/DL (32.0-36.0) Red Cell Distribution Width 16.2 % (11.6-14.8) H Platelet Count 431 K/UL (150-450) Mean Platelet Volume 9.2 FL (6.5-10.1) Neutrophils (%) (Auto) % (45.0-75.0) Lymphocytes (%) (Auto) % (20.0-45.0) Monocytes (%) (Auto) % (1.0-10.0) Eosinophils (%) (Auto) % (0.0-3.0) Basophils (%) (Auto) % (0.0-2.0) Differential Total Cells Counted 100 Neutrophils % (Manual) 88 % (45-75) H Lymphocytes % (Manual) 11 % (20-45) L Monocytes % (Manual) 1 % (1-10) Eosinophils % (Manual) 0 % (0-3) Basophils % (Manual) 0 % (0-2) Band Neutrophils 0 % (0-8) Platelet Estimate Adequate Platelet Morphology Giant Platelets 1+ Anisocytosis 1+ Sodium Level 133 MMOL/L (136-145) L Potassium Level 4.0 MMOL/L (3.5-5.1) Chloride Level 100 MMOL/L (98-107) Carbon Dioxide Level 26 MMOL/L (21-32) Anion Gap 7 mmol/L (5-15) Blood Urea Nitrogen 16 mg/dL (7-18) Creatinine 0.6 MG/DL (0.55-1.30) Estimat Glomerular Filtration Rate mL/min (>60) Glucose Level 147 MG/DL (74-106) H Calcium Level 8.9 MG/DL (8.5-10.1) Digoxin Level 0.9 NG/ML (0.9-2.0) Microbiology Date/Time Source Procedure Growth Status 02/12/18 18:30 Blood Blood Culture - Preliminary NO GROWTH AFTER 24 HOURS Resulted 02/12/18 18:15 Blood Blood Culture - Preliminary Resulted 02/12/18 15:00 Sputum Expectorated Gram Stain - Final Complete 02/12/18 15:00 Sputum Expectorated Sputum Culture - Final NORMAL UPPER RESPIRATORY LAITH PRESENT Complete Objective HEAD AND NECK: No JVD. On BIPAP LUNGS: Coarse rhonchi bilaterally. CARDIOVASCULAR: Tachy S1 and S2 with no gallop or murmur. ABDOMEN: Soft and status post G-tube. EXTREMITIES: No pitting edema. She has sacral decubitus. Emmanuel Edgar MD Feb 14, 2018 14:47
--- NOTE | 2018-02-14 15:12 | Pulmonology Progress Note ---
Assessment/Plan Assessment/Plan 1. Probable pneumonia. CXR with scoliosis 2. Respiratory failure on BiPAP 3. Hypertension. 4. Diabetes mellitus. 5. Dehydration, hypernatremia 6. Tardive dyskinesia 7. hypoxemia DISCUSSION: 1. Continue BiPAP 2. FU labs 3. Antibiotics. 4. off IVF 5. DVT and GI prophylaxes. 6. titrate o2 7. Discussed with RN, soc service 8. Agree with recommendation for DNR outlined in Bioethics note 9. prognosis poor Subjective ROS Limited/Unobtainable: Yes Allergies: Coded Allergies: No Known Allergies (Verified , 03/10/07) Subjective obtunded on bipap episodes of desaturation no report cp nv or bleeding tolerating TF no famiily at the bedside Objective Last 24 Hour Vital Signs Date Time Temp Pulse Resp B/P (MAP) Pulse Ox O2 Delivery O2 Flow Rate FiO2 02/14/18 14:30 89 111/59 02/14/18 13:15 73 23 95 Facial 100 02/14/18 12:00 85 02/14/18 12:00 100 02/14/18 12:00 97.2 89 24 111/59 96 Bi-pap 100 97.2 02/14/18 10:59 85 24 95 Facial 100 02/14/18 08:55 77 21 99 Facial 80 02/14/18 08:36 66 02/14/18 08:00 70 02/14/18 08:00 97.2 75 26 119/49 100 Bi-pap 100 97.2 02/14/18 08:00 100 02/14/18 06:41 Bi-pap 100 02/14/18 06:41 91 20 100 Facial 100 02/14/18 06:41 100 Bi-pap 02/14/18 05:57 75 128/78 02/14/18 05:24 75 21 95 Facial 100 02/14/18 04:00 100 02/14/18 04:00 97.2 84 23 128/78 95 Bi-pap 80 97.2 02/14/18 03:46 88 02/14/18 03:30 72 23 94 Full Face 100 02/14/18 01:00 66 20 100 Facial 100 02/14/18 00:00 74 02/14/18 00:00 97.3 84 26 145/62 97 Bi-pap 80 97.3 02/14/18 00:00 100 02/13/18 23:12 69 20 100 Facial 100 02/13/18 21:39 85 132/76 02/13/18 21:01 77 39 92 Facial 100 02/13/18 20:00 97.5 85 26 132/76 97 Bi-pap 80 97.5 02/13/18 20:00 75 02/13/18 20:00 100 02/13/18 19:30 98 Bi-pap 02/13/18 19:30 Bi-pap 02/13/18 19:30 71 25 92 Facial 100 02/13/18 17:21 76 21 93 Full Face 100 02/13/18 16:00 100 02/13/18 16:00 79 02/13/18 16:00 97.7 80 28 107/60 92 Bi-pap 80 97.7 02/13/18 15:19 76 24 100 Full Face 100 Intake and Output 02/13/18 02/14/18 19:00 07:00 Intake Total 1511.0 ml 2245 ml Output Total 650 ml 650 ml Balance 861.0 ml 1595 ml Free Water 200 ml 300 ml IV Total 831.0 ml 1465 ml Tube Feeding 480 ml 480 ml Output Urine Total 650 ml 650 ml # Bowel Movements 1 1 General Appearance: cachetic Respiratory/Chest: rhonchi Cardiovascular: regular rhythm Abdomen: soft, non tender, no organomegaly Neurologic/Psychiatric: disoriented, unresponsiveness Microbiology Date/Time Source Procedure Growth Status 02/12/18 18:30 Blood Blood Culture - Preliminary NO GROWTH AFTER 24 HOURS Resulted 02/12/18 18:15 Blood Blood Culture - Preliminary Resulted 02/12/18 15:00 Sputum Expectorated Gram Stain - Final Complete 02/12/18 15:00 Sputum Expectorated Sputum Culture - Final NORMAL UPPER RESPIRATORY LAITH PRESENT Complete Laboratory Tests 02/14/18 04:35: White Blood Count 19.5H, Red Blood Count 4.60, Hemoglobin 12.8, Hematocrit 39.6 , Mean Corpuscular Volume 86, Mean Corpuscular Hemoglobin 27.9, Mean Corpuscular Hemoglobin Concent 32.4, Red Cell Distribution Width 16.2H, Platelet Count 431, Mean Platelet Volume 9.2, Neutrophils (%) (Auto) , Lymphocytes (%) (Auto) , Monocytes (%) (Auto) , Eosinophils (%) (Auto) , Basophils (%) (Auto) , Differential Total Cells Counted 100, Neutrophils % ( Manual) 88H, Lymphocytes % (Manual) 11L, Monocytes % (Manual) 1, Eosinophils % ( Manual) 0, Basophils % (Manual) 0, Band Neutrophils 0, Platelet Estimate Adequate, Platelet Morphology , Giant Platelets 1+, Anisocytosis 1+, Sodium Level 133L, Potassium Level 4.0, Chloride Level 100, Carbon Dioxide Level 26, Anion Gap 7, Blood Urea Nitrogen 16, Creatinine 0.6, Estimat Glomerular Filtration Rate , Glucose Level 147H, Calcium Level 8.9, Digoxin Level 0.9 Current Medications Medications (Trade) Dose Ordered Sig/Rosetta Route PRN Reason Start Time Stop Time Status Last Admin Dose Admin Acetaminophen (Tylenol) 650 mg Q4H PRN GT Mild Pain/Temp > 100.5 02/09/18 16:00 03/10/18 15:59 Ascorbic Acid (Vitamin C) 500 mg DAILY GT 02/10/18 09:00 03/07/18 08:59 02/14/18 08:36 Clonidine HCl (Catapres Tab) 0.1 mg Q8H PRN GT SBP >160 02/09/18 17:00 03/09/18 16:59 02/09/18 17:31 Dextrose 1,000 ml @ 75 mls/hr [id number] IV 02/11/18 17:30 03/13/18 17:29 02/14/18 06:33 Dextrose (Dextrose 50%) 25 ml STAT PRN IV Hypoglycemia 02/09/18 16:00 03/11/18 15:59 Dextrose (Dextrose 50%) 50 ml STAT PRN IV Hypoglycemia 02/09/18 16:00 03/11/18 15:59 Digoxin (Lanoxin) 0.125 mg DAILY GT 02/10/18 09:00 03/07/18 08:59 02/14/18 08:36 Diltiazem HCl (Cardizem) 30 mg EVERY 8 HOURS ORAL 02/10/18 22:00 03/12/18 21:59 02/14/18 14:30 Enoxaparin Sodium (Lovenox) 30 mg Q24H SUBQ 02/10/18 09:00 03/07/18 08:59 02/14/18 08:43 Famotidine (Pepcid) 20 mg DAILY GT 02/10/18 09:00 03/10/18 08:59 02/14/18 08:36 Insulin Aspart (NovoLOG) EVERY 6 HOURS SUBQ 02/09/18 18:00 03/07/18 06:29 02/14/18 13:15 Iopamidol (Isovue-370 150ml) 150 ml NOW PRN INJ Radiology Procedure 02/12/18 15:30 02/14/18 15:29 Lorazepam (Ativan 2mg/ml 1ml) 1 mg Q4H PRN IV For Anxiety 02/13/18 10:30 02/20/18 10:29 02/14/18 10:48 Meropenem 500 mg/ Sodium Chloride 55 ml @ 110 mls/hr Q12H IVPB 02/13/18 18:30 02/18/18 18:29 02/14/18 05:57 Vancomycin HCl (Vanco rx to dose) 1 ea DAILY PRN MISC Per rx protocol 02/14/18 08:00 03/16/18 07:59 Vancomycin/Sodium Chloride 250 ml @ 166.667 mls/hr Q24H IVPB 02/14/18 10:00 02/19/18 09:59 02/14/18 10:47 Linnette Walton DO Feb 14, 2018 15:12
[2018-02-14 16:00] VITALS: BP 121/57
[2018-02-14 20:00] VITALS: BP 130/70
[2018-02-15] VITALS: BP 133/82
[2018-02-15 04:00] VITALS: BP 110/60
[2018-02-15 05:07] LABS: BASOPHILS % (AUTO) 0.4 % (0.0-2.0); EOSINOPHILS % (AUTO) 1.2 % (0.0-3.0); HEMATOCRIT 38.1 % (37.0-47.0); HEMOGLOBIN 12.4 G/DL (12.0-16.0); LYMPHOCYTES % (AUTO) 13.1 % (20.0-45.0); MEAN CORPUSCULAR VOLUME 86 FL (80-99); MONOCYTES % (AUTO) 3.8 % (1.0-10.0); NEUTROPHILS % (AUTO) 81.5 % (45.0-75.0); PLATELET COUNT 388 K/UL (150-450); RED BLOOD COUNT 4.45 M/UL (4.20-5.40); RED CELL DISTRIBUTION WIDTH 16.2 % (11.6-14.8); WHITE BLOOD COUNT 14.9 K/UL (4.8-10.8)
[2018-02-15 05:13] LABS: ANION GAP 4 mmol/L (5-15); BLOOD UREA NITROGEN 14 mg/dL (7-18); CALCIUM 8.6 MG/DL (8.5-10.1); CARBON DIOXIDE 30 MMOL/L (21-32); CHLORIDE 100 MMOL/L (98-107); CREATININE 0.5 MG/DL (0.55-1.30); POTASSIUM 4.1 MMOL/L (3.5-5.1); SODIUM 134 MMOL/L (136-145)
[2018-02-15] MEDS: Meropenem 500 MG in NS 55 ML IVPB SCH ×2 (05:54→18:00)
[2018-02-15] MEDS: dilTIAZem HCl 30mg tab ORAL SCH ×3 (05:54→21:30)
[2018-02-15] MEDS: NovoLOG Insulin Flexpen SUBQ SCH ×4 (05:55→18:01)
[2018-02-15 08:00] VITALS: BP 136/79
--- NOTE | 2018-02-15 08:12 | Nephrology Progress Note ---
Assessment/Plan Assessment/Plan 1. Sepsis- HCAP - Abx per ID mgmt - bioethics decision pending court decision 2. Scral Decub- Appreciate Gen Surg 3. Hypernatremia- DC free water. Na at 134 4. Resp FL- on BiPaP, defer mgmt to Pulm. Under bioethics review 5. AFib- on digoxin, and cardizem 6. DVT prophylaxis- lovenox Subjective Date patient seen: Feb 15, 2018 Time patient seen: 08:09 ROS Limited/Unobtainable: Yes Respiratory: Reports: shortness of breath Allergies: Coded Allergies: No Known Allergies (Verified , 03/10/07) Subjective Patient remains on BiPAP. Objective Last 24 Hour Vital Signs Date Time Temp Pulse Resp B/P (MAP) Pulse Ox O2 Delivery O2 Flow Rate FiO2 02/15/18 08:00 100 02/15/18 07:28 99 Bi-pap 02/15/18 07:28 Bi-pap 02/15/18 07:25 84 28 99 Full Face 100 02/15/18 05:54 84 135/85 02/15/18 05:04 85 25 94 Full Face 100 02/15/18 04:00 97.3 66 21 110/60 98 Bi-pap 100 97.3 02/15/18 04:00 73 02/15/18 04:00 100 02/15/18 03:17 69 22 95 Facial 100 02/15/18 01:08 67 23 100 Full Face 100 02/15/18 00:00 97.5 95 26 133/82 98 Bi-pap 100 97.5 02/15/18 00:00 61 02/15/18 00:00 100 02/14/18 23:20 71 22 94 Full Face 80 02/14/18 21:40 87 130/70 02/14/18 21:30 74 25 92 Full Face 80 02/14/18 20:00 92 02/14/18 20:00 97.7 88 26 130/70 99 Bi-pap 80 97.7 02/14/18 20:00 80 02/14/18 19:52 99 Bi-pap 02/14/18 19:30 85 22 97 Full Face 80 02/14/18 19:30 Bi-pap 02/14/18 18:00 70 02/14/18 16:43 63 22 100 Facial 60 02/14/18 16:00 100 02/14/18 16:00 97.2 72 24 121/57 99 Bi-pap 100 97.2 02/14/18 14:56 66 21 100 Facial 80 02/14/18 14:30 89 111/59 02/14/18 13:15 73 23 95 Facial 100 02/14/18 12:00 85 02/14/18 12:00 100 02/14/18 12:00 97.2 89 24 111/59 96 Bi-pap 100 97.2 02/14/18 10:59 85 24 95 Facial 100 02/14/18 08:55 77 21 99 Facial 80 02/14/18 08:36 66 Intake and Output 02/14/18 02/15/18 19:00 07:00 Intake Total 1201.667 ml 1281 ml Output Total 750 ml 500 ml Balance 451.667 ml 781 ml IV Total 1121.667 ml 801 ml Tube Feeding 80 ml 480 ml Output Urine Total 750 ml 500 ml # Bowel Movements 2 Laboratory Tests 02/15/18 04:30: White Blood Count 14.9H, Red Blood Count 4.45, Hemoglobin 12.4, Hematocrit 38.1 , Mean Corpuscular Volume 86, Mean Corpuscular Hemoglobin 27.8, Mean Corpuscular Hemoglobin Concent 32.5, Red Cell Distribution Width 16.2H, Platelet Count 388, Mean Platelet Volume 9.4, Neutrophils (%) (Auto) 81.5H, Lymphocytes (%) (Auto) 13.1L, Monocytes (%) (Auto) 3.8, Eosinophils (%) (Auto) 1.2, Basophils (%) (Auto) 0.4, Sodium Level 134L, Potassium Level 4.1, Chloride Level 100, Carbon Dioxide Level 30, Anion Gap 4L, Blood Urea Nitrogen 14, Creatinine 0.5L, Estimat Glomerular Filtration Rate , Glucose Level 130H, Calcium Level 8.6 Height (Feet): 4 Height (Inches): 0.00 Weight (Pounds): 97 General Appearance: confused, mild distress EENT: normal ENT inspection Neck: normal alignment, supple Cardiovascular: normal rate, regular rhythm Respiratory/Chest: rhonchi - bilaterally Abdomen: non tender, soft Edema: no edema noted Arm (L), no edema noted Arm (R), no edema noted Leg (L), no edema noted Leg (R), no edema noted Pedal (L), no edema noted Pedal (R), no edema noted Generalized Jorge Graf M.D. Feb 15, 2018 08:12
[2018-02-15] MEDS ORDERED: NS 500ML ONE (09:38)
[2018-02-15] MEDS ORDERED: Tubing IV Secondary IV ONE (09:38)
[2018-02-15] MEDS: Vancomycin 750mg/NS 250ml IVPB SCH (09:56)
[2018-02-15] MEDS: Enoxaparin 30mg Inj SUBQ SCH (09:56)
[2018-02-15] MEDS: Digoxin 0.125mg tab GT SCH (09:56)
[2018-02-15] MEDS: Ascorbic Acid 500mg tab GT SCH (09:57)
--- NOTE | 2018-02-15 11:52 | General Surgery Progress Note ---
General Surgery-Progress Note Subjective Additional Comments no acute events. wounds improving Objective Last 24 Hour Vital Signs Date Time Temp Pulse Resp B/P (MAP) Pulse Ox O2 Delivery O2 Flow Rate FiO2 02/15/18 10:53 82 26 100 Full Face 100 02/15/18 09:56 80 02/15/18 08:40 87 25 100 Full Face 100 02/15/18 08:00 98.4 96 40 136/79 96 Bi-pap 100 98.4 02/15/18 08:00 100 02/15/18 08:00 92 02/15/18 07:28 99 Bi-pap 02/15/18 07:28 Bi-pap 02/15/18 07:25 84 28 99 Full Face 100 02/15/18 05:54 84 135/85 02/15/18 05:04 85 25 94 Full Face 100 02/15/18 04:00 97.3 66 21 110/60 98 Bi-pap 100 97.3 02/15/18 04:00 73 02/15/18 04:00 100 02/15/18 03:17 69 22 95 Facial 100 02/15/18 01:08 67 23 100 Full Face 100 02/15/18 00:00 97.5 95 26 133/82 98 Bi-pap 100 97.5 02/15/18 00:00 61 02/15/18 00:00 100 02/14/18 23:20 71 22 94 Full Face 80 02/14/18 21:40 87 130/70 02/14/18 21:30 74 25 92 Full Face 80 02/14/18 20:00 92 02/14/18 20:00 97.7 88 26 130/70 99 Bi-pap 80 97.7 02/14/18 20:00 80 02/14/18 19:52 99 Bi-pap 02/14/18 19:30 85 22 97 Full Face 80 02/14/18 19:30 Bi-pap 02/14/18 18:00 70 02/14/18 16:43 63 22 100 Facial 60 02/14/18 16:00 100 02/14/18 16:00 97.2 72 24 121/57 99 Bi-pap 100 97.2 02/14/18 14:56 66 21 100 Facial 80 02/14/18 14:30 89 111/59 02/14/18 13:15 73 23 95 Facial 100 02/14/18 12:00 85 02/14/18 12:00 100 02/14/18 12:00 97.2 89 24 111/59 96 Bi-pap 100 97.2 I&O Intake and Output 02/14/18 02/15/18 19:00 07:00 Intake Total 1201.667 ml 1281 ml Output Total 750 ml 500 ml Balance 451.667 ml 781 ml IV Total 1121.667 ml 801 ml Tube Feeding 80 ml 480 ml Output Urine Total 750 ml 500 ml # Bowel Movements 2 Dressing: dry Wound: clean Drains: none Extremities: no edema, no tenderness, no cyanosis Laboratory Tests Test 02/15/18 04:30 White Blood Count 14.9 K/UL (4.8-10.8) H Red Blood Count 4.45 M/UL (4.20-5.40) Hemoglobin 12.4 G/DL (12.0-16.0) Hematocrit 38.1 % (37.0-47.0) Mean Corpuscular Volume 86 FL (80-99) Mean Corpuscular Hemoglobin 27.8 PG (27.0-31.0) Mean Corpuscular Hemoglobin Concent 32.5 G/DL (32.0-36.0) Red Cell Distribution Width 16.2 % (11.6-14.8) H Platelet Count 388 K/UL (150-450) Mean Platelet Volume 9.4 FL (6.5-10.1) Neutrophils (%) (Auto) 81.5 % (45.0-75.0) H Lymphocytes (%) (Auto) 13.1 % (20.0-45.0) L Monocytes (%) (Auto) 3.8 % (1.0-10.0) Eosinophils (%) (Auto) 1.2 % (0.0-3.0) Basophils (%) (Auto) 0.4 % (0.0-2.0) Sodium Level 134 MMOL/L (136-145) L Potassium Level 4.1 MMOL/L (3.5-5.1) Chloride Level 100 MMOL/L (98-107) Carbon Dioxide Level 30 MMOL/L (21-32) Anion Gap 4 mmol/L (5-15) L Blood Urea Nitrogen 14 mg/dL (7-18) Creatinine 0.5 MG/DL (0.55-1.30) L Estimat Glomerular Filtration Rate mL/min (>60) Glucose Level 130 MG/DL (74-106) H Calcium Level 8.6 MG/DL (8.5-10.1) Plan Problems: (1) Sepsis Assessment & Plan: PNA, UTI, multiple wounds. unlikely wounds etiology of sepsis given clinical evaluation. -Cont Abx as per ID (2) Foot ulcer, right Assessment & Plan: right foot medial aspect with two wounds. proximal unstageable with necrotic eschar has since sloth off, no erythema, no edema, no signs of infection, no drainage, no odor. distal with open stage II ulcer with ulcer erythema, no edema, no signs of infection, no drainage, no odor. -skin protectant and foam dressings daily and prn. -no debridement currently necessary. no signs of active infection -wounds present on admission (3) Decubitus ulcer of left hip, stage 2 Assessment & Plan: stage II left hip pressure ulcer. open stage II ulcer with ulcer erythema, no edema, no signs of infection, no drainage, no odor. -skin protectant and foam dressings daily and prn. -no debridement currently necessary. -wounds present on admission (4) Sacral wound Assessment & Plan: stage III left hip pressure ulcer. open stage III ulcer with ulcer erythema, no edema, no signs of infection, minimal serous oozing/ drainage, no odor. please refer to wound care photos for size and shape -skin protectant and foam dressings daily and prn. fortunately superficial and minimal depth. majority stage II and small portion stage III. area of unstageable but stable -no debridement currently necessary. -wounds present on admission Nikko Austin Feb 15, 2018 11:52
[2018-02-15 12:00] VITALS: BP 141/62
--- NOTE | 2018-02-15 13:03 | Pulmonology Progress Note ---
Assessment/Plan Assessment/Plan IMPRESSION: 1. Bilateral pneumonia. 2. Respiratory failure on BiPAP 3. Hypertension. 4. Diabetes mellitus. 5. Dehydration, hypernatremia 6. Tardive dyskinesia DISCUSSION: 1. Continue BiPAP, wean as tolerated 2. No PE on CTA; + bilateral infiltrates 3. Antibiotics. 4. Await bioethics decision per conservator; I rec comfort care and DNR 5. DVT and GI prophylaxes. Prognosis poor Subjective ROS Limited/Unobtainable: Yes Allergies: Coded Allergies: No Known Allergies (Verified , 03/10/07) Objective Last 24 Hour Vital Signs Date Time Temp Pulse Resp B/P (MAP) Pulse Ox O2 Delivery O2 Flow Rate FiO2 02/15/18 12:00 100 02/15/18 10:53 82 26 100 Full Face 100 02/15/18 09:56 80 02/15/18 08:40 87 25 100 Full Face 100 02/15/18 08:00 98.4 96 40 136/79 96 Bi-pap 100 98.4 02/15/18 08:00 100 02/15/18 08:00 92 02/15/18 07:28 99 Bi-pap 02/15/18 07:28 Bi-pap 02/15/18 07:25 84 28 99 Full Face 100 02/15/18 05:54 84 135/85 02/15/18 05:04 85 25 94 Full Face 100 02/15/18 04:00 97.3 66 21 110/60 98 Bi-pap 100 97.3 02/15/18 04:00 73 02/15/18 04:00 100 02/15/18 03:17 69 22 95 Facial 100 02/15/18 01:08 67 23 100 Full Face 100 02/15/18 00:00 97.5 95 26 133/82 98 Bi-pap 100 97.5 02/15/18 00:00 61 02/15/18 00:00 100 02/14/18 23:20 71 22 94 Full Face 80 02/14/18 21:40 87 130/70 02/14/18 21:30 74 25 92 Full Face 80 02/14/18 20:00 92 02/14/18 20:00 97.7 88 26 130/70 99 Bi-pap 80 97.7 02/14/18 20:00 80 7/1/18 19:52 99 Bi-pap 02/14/18 19:30 85 22 97 Full Face 80 02/14/18 19:30 Bi-pap 02/14/18 18:00 70 02/14/18 16:43 63 22 100 Facial 60 02/14/18 16:00 100 02/14/18 16:00 97.2 72 24 121/57 99 Bi-pap 100 97.2 02/14/18 14:56 66 21 100 Facial 80 02/14/18 14:30 89 111/59 02/14/18 13:15 73 23 95 Facial 100 Intake and Output 02/14/18 02/15/18 18:59 06:59 Intake Total 1161.667 ml 1281 ml Output Total 750 ml 500 ml Balance 411.667 ml 781 ml IV Total 1121.667 ml 801 ml Tube Feeding 40 ml 480 ml Output Urine Total 750 ml 500 ml # Bowel Movements 2 Objective on BiPAP General Appearance: no acute distress, cachetic HEENT: atraumatic Respiratory/Chest: decreased breath sounds Cardiovascular: normal rate Microbiology Date/Time Source Procedure Growth Status 02/12/18 18:30 Blood Blood Culture - Preliminary NO GROWTH AFTER 48 HOURS Resulted 02/12/18 18:15 Blood Blood Culture - Preliminary Resulted 02/12/18 15:00 Sputum Expectorated Gram Stain - Final Complete 02/12/18 15:00 Sputum Expectorated Sputum Culture - Final NORMAL UPPER RESPIRATORY LAITH PRESENT Complete Laboratory Tests 02/15/18 04:30: White Blood Count 14.9H, Red Blood Count 4.45, Hemoglobin 12.4, Hematocrit 38.1 , Mean Corpuscular Volume 86, Mean Corpuscular Hemoglobin 27.8, Mean Corpuscular Hemoglobin Concent 32.5, Red Cell Distribution Width 16.2H, Platelet Count 388, Mean Platelet Volume 9.4, Neutrophils (%) (Auto) 81.5H, Lymphocytes (%) (Auto) 13.1L, Monocytes (%) (Auto) 3.8, Eosinophils (%) (Auto) 1.2, Basophils (%) (Auto) 0.4, Sodium Level 134L, Potassium Level 4.1, Chloride Level 100, Carbon Dioxide Level 30, Anion Gap 4L, Blood Urea Nitrogen 14, Creatinine 0.5L, Estimat Glomerular Filtration Rate , Glucose Level 130H, Calcium Level 8.6 Current Medications Medications (Trade) Dose Ordered Sig/Rosetta Route PRN Reason Start Time Stop Time Status Last Admin Dose Admin Acetaminophen (Tylenol) 650 mg Q4H PRN GT Mild Pain/Temp > 100.5 02/09/18 16:00 03/10/18 15:59 Ascorbic Acid (Vitamin C) 500 mg DAILY GT 02/10/18 09:00 03/07/18 08:59 02/15/18 09:57 Clonidine HCl (Catapres Tab) 0.1 mg Q8H PRN GT SBP >160 02/09/18 17:00 03/09/18 16:59 02/09/18 17:31 Dextrose 1,000 ml @ 75 mls/hr [id number] IV 02/11/18 17:30 03/13/18 17:29 02/14/18 21:03 Dextrose (Dextrose 50%) 25 ml STAT PRN IV Hypoglycemia 02/09/18 16:00 03/11/18 15:59 Dextrose (Dextrose 50%) 50 ml STAT PRN IV Hypoglycemia 02/09/18 16:00 03/11/18 15:59 Digoxin (Lanoxin) 0.125 mg DAILY GT 02/10/18 09:00 03/07/18 08:59 02/15/18 09:56 Diltiazem HCl (Cardizem) 30 mg EVERY 8 HOURS ORAL 02/10/18 22:00 03/12/18 21:59 02/15/18 05:54 Enoxaparin Sodium (Lovenox) 30 mg Q24H SUBQ 02/10/18 09:00 03/07/18 08:59 02/15/18 09:56 Famotidine (Pepcid) 20 mg DAILY GT 02/10/18 09:00 03/10/18 08:59 02/15/18 09:56 Insulin Aspart (NovoLOG) EVERY 6 HOURS SUBQ 02/09/18 18:00 03/07/18 06:29 02/15/18 05:55 Lorazepam (Ativan 2mg/ml 1ml) 1 mg Q4H PRN IV For Anxiety 02/13/18 10:30 02/20/18 10:29 02/14/18 22:15 Meropenem 500 mg/ Sodium Chloride 55 ml @ 110 mls/hr Q12H IVPB 02/13/18 18:30 02/18/18 18:29 02/15/18 05:54 Vancomycin HCl (Vanco rx to dose) 1 ea DAILY PRN MISC Per rx protocol 02/14/18 08:00 03/16/18 07:59 Vancomycin/Sodium Chloride 250 ml @ 166.667 mls/hr Q24H IVPB 02/14/18 10:00 02/19/18 09:59 02/15/18 09:56 Rashawn Vang MD Feb 15, 2018 13:03
--- NOTE | 2018-02-15 14:14 | Infectious Diseases Prog Note ---
Assessment/Plan Problems: (1) HCAP (healthcare-associated pneumonia) Assessment & Plan: complicated with respiratory failure, on meropenem empiric coverage , and vancomycin to cover for gram positive cocci bacteremia , pending identification , monitor CXR and ABG . pulmonary is following (2) Sacral wound Assessment & Plan: colonized with ESBL producing E coli , klebsiella pneumonia and providenciae stuartii . continue local wound care and dressing changes as per hospital protocol . was evaluated by general surgery (3) Sepsis Assessment & Plan: with gram positive cocci in clusters suspect staphylococcus spp , continue vancomycin empiric coverage pending culture results (4) Acute respiratory failure Assessment & Plan: with hypoxemia , due to the above, now BIPAP dependant , pulmonary is following, monitor CXR and ABG . she is now DNR/DNI Subjective ROS Limited/Unobtainable: Yes Allergies: Coded Allergies: No Known Allergies (Verified , 03/10/07) Subjective she was quiet, and comfortable lying in bed , still on BIPAP machine , with max FIO2 of 100 %. afebrile, no cough or significant phlegm, no diarrhea Objective Vital Signs Last 24 Hour Vital Signs Date Time Temp Pulse Resp B/P (MAP) Pulse Ox O2 Delivery O2 Flow Rate FiO2 02/15/18 14:08 109 141/62 02/15/18 13:24 99 30 93 Full Face 100 02/15/18 12:00 90 02/15/18 12:00 100 02/15/18 12:00 97.9 89 42 141/62 96 Bi-pap 100 97.9 02/15/18 10:53 82 26 100 Full Face 100 02/15/18 09:56 80 02/15/18 08:40 87 25 100 Full Face 100 02/15/18 08:00 98.4 96 40 136/79 96 Bi-pap 100 98.4 02/15/18 08:00 100 02/15/18 08:00 92 02/15/18 07:28 99 Bi-pap 02/15/18 07:28 Bi-pap 02/15/18 07:25 84 28 99 Full Face 100 02/15/18 05:54 84 135/85 02/15/18 05:04 85 25 94 Full Face 100 02/15/18 04:00 97.3 66 21 110/60 98 Bi-pap 100 97.3 02/15/18 04:00 73 7/2/18 04:00 100 02/15/18 03:17 69 22 95 Facial 100 02/15/18 01:08 67 23 100 Full Face 100 02/15/18 00:00 97.5 95 26 133/82 98 Bi-pap 100 97.5 02/15/18 00:00 61 02/15/18 00:00 100 02/14/18 23:20 71 22 94 Full Face 80 02/14/18 21:40 87 130/70 02/14/18 21:30 74 25 92 Full Face 80 02/14/18 20:00 92 02/14/18 20:00 97.7 88 26 130/70 99 Bi-pap 80 97.7 02/14/18 20:00 80 02/14/18 19:52 99 Bi-pap 02/14/18 19:30 85 22 97 Full Face 80 02/14/18 19:30 Bi-pap 02/14/18 18:00 70 02/14/18 16:43 63 22 100 Facial 60 02/14/18 16:00 100 02/14/18 16:00 97.2 72 24 121/57 99 Bi-pap 100 97.2 02/14/18 14:56 66 21 100 Facial 80 02/14/18 14:30 89 111/59 Height (Feet): 4 Height (Inches): 0.00 Weight (Pounds): 97 General Appearance: WD/WN, no acute distress, cachetic HEENT: normocephalic, atraumatic, anicteric, mucous membranes moist Respiratory/Chest: chest wall non-tender, no respiratory distress, no accessory muscle use, decreased breath sounds, expiratory wheezing Cardiovascular: normal peripheral pulses, normal rate, regular rhythm, no gallop/murmur, no JVD Abdomen: normal bowel sounds, soft, non tender, no organomegaly, non distended , no mass, no scars Extremities: no cyanosis, no clubbing Skin: no rash, no lesions, no ulcers Neurologic/Psychiatric: alert, oriented x 3 Microbiology Date/Time Source Procedure Growth Status 02/12/18 18:30 Blood Blood Culture - Preliminary NO GROWTH AFTER 48 HOURS Resulted 02/12/18 18:15 Blood Blood Culture - Preliminary Resulted 02/12/18 15:00 Sputum Expectorated Gram Stain - Final Complete 02/12/18 15:00 Sputum Expectorated Sputum Culture - Final NORMAL UPPER RESPIRATORY LAITH PRESENT Complete Laboratory Tests Test 02/15/18 04:30 White Blood Count 14.9 K/UL (4.8-10.8) H Red Blood Count 4.45 M/UL (4.20-5.40) Hemoglobin 12.4 G/DL (12.0-16.0) Hematocrit 38.1 % (37.0-47.0) Mean Corpuscular Volume 86 FL (80-99) Mean Corpuscular Hemoglobin 27.8 PG (27.0-31.0) Mean Corpuscular Hemoglobin Concent 32.5 G/DL (32.0-36.0) Red Cell Distribution Width 16.2 % (11.6-14.8) H Platelet Count 388 K/UL (150-450) Mean Platelet Volume 9.4 FL (6.5-10.1) Neutrophils (%) (Auto) 81.5 % (45.0-75.0) H Lymphocytes (%) (Auto) 13.1 % (20.0-45.0) L Monocytes (%) (Auto) 3.8 % (1.0-10.0) Eosinophils (%) (Auto) 1.2 % (0.0-3.0) Basophils (%) (Auto) 0.4 % (0.0-2.0) Sodium Level 134 MMOL/L (136-145) L Potassium Level 4.1 MMOL/L (3.5-5.1) Chloride Level 100 MMOL/L (98-107) Carbon Dioxide Level 30 MMOL/L (21-32) Anion Gap 4 mmol/L (5-15) L Blood Urea Nitrogen 14 mg/dL (7-18) Creatinine 0.5 MG/DL (0.55-1.30) L Estimat Glomerular Filtration Rate mL/min (>60) Glucose Level 130 MG/DL (74-106) H Calcium Level 8.6 MG/DL (8.5-10.1) Current Medications Medications (Trade) Dose Ordered Sig/Rosetta Route PRN Reason Start Time Stop Time Status Last Admin Dose Admin Acetaminophen (Tylenol) 650 mg Q4H PRN GT Mild Pain/Temp > 100.5 02/09/18 16:00 03/10/18 15:59 Ascorbic Acid (Vitamin C) 500 mg DAILY GT 02/10/18 09:00 03/07/18 08:59 02/15/18 09:57 Clonidine HCl (Catapres Tab) 0.1 mg Q8H PRN GT SBP >160 02/09/18 17:00 03/09/18 16:59 02/09/18 17:31 Dextrose 1,000 ml @ 75 mls/hr [id number] IV 02/11/18 17:30 03/13/18 17:29 02/15/18 14:06 Dextrose (Dextrose 50%) 25 ml STAT PRN IV Hypoglycemia 02/09/18 16:00 03/11/18 15:59 Dextrose (Dextrose 50%) 50 ml STAT PRN IV Hypoglycemia 02/09/18 16:00 03/11/18 15:59 Digoxin (Lanoxin) 0.125 mg DAILY GT 02/10/18 09:00 03/07/18 08:59 02/15/18 09:56 Diltiazem HCl (Cardizem) 30 mg EVERY 8 HOURS ORAL 02/10/18 22:00 03/12/18 21:59 02/15/18 14:08 Enoxaparin Sodium (Lovenox) 30 mg Q24H SUBQ 02/10/18 09:00 03/07/18 08:59 02/15/18 09:56 Famotidine (Pepcid) 20 mg DAILY GT 02/10/18 09:00 03/10/18 08:59 02/15/18 09:56 Insulin Aspart (NovoLOG) EVERY 6 HOURS SUBQ 02/09/18 18:00 03/07/18 06:29 02/15/18 05:55 Lorazepam (Ativan 2mg/ml 1ml) 1 mg Q4H PRN IV For Anxiety 02/13/18 10:30 02/20/18 10:29 02/14/18 22:15 Meropenem 500 mg/ Sodium Chloride 55 ml @ 110 mls/hr Q12H IVPB 02/13/18 18:30 02/18/18 18:29 02/15/18 05:54 Vancomycin HCl (Vanco rx to dose) 1 ea DAILY PRN MISC Per rx protocol 02/14/18 08:00 03/16/18 07:59 Vancomycin/Sodium Chloride 250 ml @ 166.667 mls/hr Q24H IVPB 02/14/18 10:00 02/19/18 09:59 02/15/18 09:56 Dom Hoffman M.D. Feb 15, 2018 14:14
[2018-02-15 16:00] VITALS: BP 142/77
--- NOTE | 2018-02-15 16:13 | Cardiac Electrophysiology PN ---
Assessment/Plan Assessment/Plan 1. Paroxysmal atrial fibrillation. Continue digoxin 0.125 mg daily and Cardizem 30 tid Now in sinus rhythm. Keep off anticoagulation.Echocardiogram Nl EF 2. Hypertension. On Cardizem 30 tid 3. Respiratory failure and sepsis, on BiPAP and Abx 4. Diabetes, on insulin. 5. Dementia. 6. Dysphagia, status post PEG placement. 7. Sacral decubitus stage III. FU by Dr. Austin. 8. History of stroke with aphasia and contractures. LOLITA RN Subjective Subjective In and out of atrial fib. On BIPAP again Objective Last 24 Hour Vital Signs Date Time Temp Pulse Resp B/P (MAP) Pulse Ox O2 Delivery O2 Flow Rate FiO2 02/15/18 16:00 100 02/15/18 14:42 103 30 95 Full Face 100 02/15/18 14:30 103 26 91 91 02/15/18 14:08 109 141/62 02/15/18 13:24 99 30 93 Full Face 100 02/15/18 12:00 90 02/15/18 12:00 100 02/15/18 12:00 97.9 89 42 141/62 96 Bi-pap 100 97.9 02/15/18 10:53 82 26 100 Full Face 100 02/15/18 09:56 80 02/15/18 08:40 87 25 100 Full Face 100 02/15/18 08:00 98.4 96 40 136/79 96 Bi-pap 100 98.4 02/15/18 08:00 100 02/15/18 08:00 92 02/15/18 07:28 99 Bi-pap 02/15/18 07:28 Bi-pap 02/15/18 07:25 84 28 99 Full Face 100 02/15/18 05:54 84 135/85 02/15/18 05:04 85 25 94 Full Face 100 02/15/18 04:00 97.3 66 21 110/60 98 Bi-pap 100 97.3 02/15/18 04:00 73 02/15/18 04:00 100 02/15/18 03:17 69 22 95 Facial 100 02/15/18 01:08 67 23 100 Full Face 100 02/15/18 00:00 97.5 95 26 133/82 98 Bi-pap 100 97.5 02/15/18 00:00 61 02/15/18 00:00 100 02/14/18 23:20 71 22 94 Full Face 80 02/14/18 21:40 87 130/70 02/14/18 21:30 74 25 92 Full Face 80 02/14/18 20:00 92 02/14/18 20:00 97.7 88 26 130/70 99 Bi-pap 80 97.7 02/14/18 20:00 80 02/14/18 19:52 99 Bi-pap 02/14/18 19:30 85 22 97 Full Face 80 02/14/18 19:30 Bi-pap 02/14/18 18:00 70 02/14/18 16:43 63 22 100 Facial 60 Intake and Output 02/14/18 02/15/18 19:00 07:00 Intake Total 1201.667 ml 1281 ml Output Total 750 ml 500 ml Balance 451.667 ml 781 ml IV Total 1121.667 ml 801 ml Tube Feeding 80 ml 480 ml Output Urine Total 750 ml 500 ml # Bowel Movements 2 Laboratory Tests Test 02/15/18 04:30 White Blood Count 14.9 K/UL (4.8-10.8) H Red Blood Count 4.45 M/UL (4.20-5.40) Hemoglobin 12.4 G/DL (12.0-16.0) Hematocrit 38.1 % (37.0-47.0) Mean Corpuscular Volume 86 FL (80-99) Mean Corpuscular Hemoglobin 27.8 PG (27.0-31.0) Mean Corpuscular Hemoglobin Concent 32.5 G/DL (32.0-36.0) Red Cell Distribution Width 16.2 % (11.6-14.8) H Platelet Count 388 K/UL (150-450) Mean Platelet Volume 9.4 FL (6.5-10.1) Neutrophils (%) (Auto) 81.5 % (45.0-75.0) H Lymphocytes (%) (Auto) 13.1 % (20.0-45.0) L Monocytes (%) (Auto) 3.8 % (1.0-10.0) Eosinophils (%) (Auto) 1.2 % (0.0-3.0) Basophils (%) (Auto) 0.4 % (0.0-2.0) Sodium Level 134 MMOL/L (136-145) L Potassium Level 4.1 MMOL/L (3.5-5.1) Chloride Level 100 MMOL/L (98-107) Carbon Dioxide Level 30 MMOL/L (21-32) Anion Gap 4 mmol/L (5-15) L Blood Urea Nitrogen 14 mg/dL (7-18) Creatinine 0.5 MG/DL (0.55-1.30) L Estimat Glomerular Filtration Rate mL/min (>60) Glucose Level 130 MG/DL (74-106) H Calcium Level 8.6 MG/DL (8.5-10.1) Microbiology Date/Time Source Procedure Growth Status 02/12/18 18:30 Blood Blood Culture - Preliminary NO GROWTH AFTER 48 HOURS Resulted 02/12/18 18:15 Blood Blood Culture - Preliminary Resulted Objective HEAD AND NECK: No JVD. On BIPAP LUNGS: Coarse rhonchi bilaterally. CARDIOVASCULAR: Tachy S1 and S2 with no gallop or murmur. ABDOMEN: Soft and status post G-tube. EXTREMITIES: No pitting edema. She has sacral decubitus. Emmanuel Edgar MD Feb 15, 2018 16:13
--- NOTE | 2018-02-15 17:39 | General Progress Note ---
Assessment/Plan Status: stable Assessment/Plan Dementia encephalopathy the pt lacks capacity to make decisions haldol prn will fill out the forms Subjective Date patient seen: Feb 15, 2018 Neurologic/Psychiatric: Reports: anxiety, emotional problems Allergies: Coded Allergies: No Known Allergies (Verified , 03/10/07) Subjective the pt is confused and unable to understand nor process Objective Last 24 Hour Vital Signs Date Time Temp Pulse Resp B/P (MAP) Pulse Ox O2 Delivery O2 Flow Rate FiO2 02/15/18 17:12 101 28 96 Full Face 100 02/15/18 16:00 100 02/15/18 16:00 98.0 96 38 142/77 95 Bi-pap 100 98.0 02/15/18 16:00 93 02/15/18 14:42 103 30 95 Full Face 100 02/15/18 14:30 103 26 91 91 02/15/18 14:08 109 141/62 02/15/18 13:24 99 30 93 Full Face 100 02/15/18 12:00 90 02/15/18 12:00 100 02/15/18 12:00 97.9 89 42 141/62 96 Bi-pap 100 97.9 02/15/18 10:53 82 26 100 Full Face 100 02/15/18 09:56 80 02/15/18 08:40 87 25 100 Full Face 100 02/15/18 08:00 98.4 96 40 136/79 96 Bi-pap 100 98.4 02/15/18 08:00 100 02/15/18 08:00 92 02/15/18 07:28 99 Bi-pap 02/15/18 07:28 Bi-pap 02/15/18 07:25 84 28 99 Full Face 100 02/15/18 05:54 84 135/85 02/15/18 05:04 85 25 94 Full Face 100 02/15/18 04:00 97.3 66 21 110/60 98 Bi-pap 100 97.3 02/15/18 04:00 73 02/15/18 04:00 100 02/15/18 03:17 69 22 95 Facial 100 02/15/18 01:08 67 23 100 Full Face 100 02/15/18 00:00 97.5 95 26 133/82 98 Bi-pap 100 97.5 02/15/18 00:00 61 02/15/18 00:00 100 02/14/18 23:20 71 22 94 Full Face 80 02/14/18 21:40 87 130/70 02/14/18 21:30 74 25 92 Full Face 80 02/14/18 20:00 92 02/14/18 20:00 97.7 88 26 130/70 99 Bi-pap 80 97.7 02/14/18 20:00 80 02/14/18 19:52 99 Bi-pap 02/14/18 19:30 85 22 97 Full Face 80 02/14/18 19:30 Bi-pap 02/14/18 18:00 70 Intake and Output 02/14/18 02/15/18 19:00 07:00 Intake Total 1201.667 ml 1281 ml Output Total 750 ml 500 ml Balance 451.667 ml 781 ml IV Total 1121.667 ml 801 ml Tube Feeding 80 ml 480 ml Output Urine Total 750 ml 500 ml # Bowel Movements 2 Laboratory Tests 02/15/18 04:30: White Blood Count 14.9H, Red Blood Count 4.45, Hemoglobin 12.4, Hematocrit 38.1 , Mean Corpuscular Volume 86, Mean Corpuscular Hemoglobin 27.8, Mean Corpuscular Hemoglobin Concent 32.5, Red Cell Distribution Width 16.2H, Platelet Count 388, Mean Platelet Volume 9.4, Neutrophils (%) (Auto) 81.5H, Lymphocytes (%) (Auto) 13.1L, Monocytes (%) (Auto) 3.8, Eosinophils (%) (Auto) 1.2, Basophils (%) (Auto) 0.4, Sodium Level 134L, Potassium Level 4.1, Chloride Level 100, Carbon Dioxide Level 30, Anion Gap 4L, Blood Urea Nitrogen 14, Creatinine 0.5L, Estimat Glomerular Filtration Rate , Glucose Level 130H, Calcium Level 8.6 Height (Feet): 4 Height (Inches): 0.00 Weight (Pounds): 97 General Appearance: WD/WN, no apparent distress, confused Darling Baker MD Feb 15, 2018 17:39
[2018-02-15 20:00] VITALS: BP 123/73
[2018-02-16] VITALS: BP 119/63
[2018-02-16 04:00] VITALS: BP 122/65
[2018-02-16] MEDS: dilTIAZem HCl 30mg tab ORAL SCH ×3 (05:55→21:28)
[2018-02-16] MEDS: Meropenem 500 MG in NS 55 ML IVPB SCH ×2 (05:57→18:33)
[2018-02-16] MEDS: NovoLOG Insulin Flexpen SUBQ SCH ×5 (05:57→23:27)
[2018-02-16 08:00] VITALS: BP 149/73
--- NOTE | 2018-02-16 08:24 | Nephrology Progress Note ---
Assessment/Plan Assessment/Plan 1. Sepsis- HCAP - Abx per ID mgmt 2. Scral Decub- Appreciate Gen Surg 3. Hyponatremia- Na at 134. Recheck in am. Will do qod labs 4. Resp [place]- on BiPaP, defer mgmt to Pulm. Under bioethics review. Continue to try to wean off BiPAP 5. AFib- on digoxin, and cardizem 6. DVT prophylaxis- lovenox Awaiting poss court decision to convert patient to DNR/I comfort care Subjective Date patient seen: Feb 16, 2018 Time patient seen: 08:22 ROS Limited/Unobtainable: Yes Allergies: Coded Allergies: No Known Allergies (Verified , 03/10/07) Subjective Patient remains on BiPAP. Has failed weaning Objective Last 24 Hour Vital Signs Date Time Temp Pulse Resp B/P (MAP) Pulse Ox O2 Delivery O2 Flow Rate FiO2 02/16/18 05:55 92 125/64 02/16/18 04:48 88 22 99 Full Face 80 02/16/18 04:00 97.9 87 28 122/65 97 Bi-pap 100 97.9 02/16/18 04:00 100 02/16/18 04:00 112 02/16/18 03:24 88 25 95 Full Face 100 02/16/18 01:26 89 23 96 Full Face 100 02/16/18 00:00 100 02/16/18 00:00 98.1 83 30 119/63 97 Bi-pap 100 98.1 02/16/18 00:00 92 02/15/18 23:24 84 25 95 Full Face 100 02/15/18 21:30 94 125/73 02/15/18 20:48 101 32 95 Full Face 100 02/15/18 20:00 98.9 98 30 123/73 98 Bi-pap 100 98.9 02/15/18 20:00 100 02/15/18 20:00 99 02/15/18 19:13 103 29 96 Full Face 100 02/15/18 19:12 Bi-pap 02/15/18 19:12 99 Bi-pap 02/15/18 17:12 101 28 96 Full Face 100 02/15/18 16:00 100 02/15/18 16:00 98.0 96 38 142/77 95 Bi-pap 100 98.0 02/15/18 16:00 93 02/15/18 14:42 103 30 95 Full Face 100 02/15/18 14:30 103 26 91 91 02/15/18 14:08 109 141/62 02/15/18 13:24 99 30 93 Full Face 100 02/15/18 12:00 90 02/15/18 12:00 100 02/15/18 12:00 97.9 89 42 141/62 96 Bi-pap 100 97.9 02/15/18 10:53 82 26 100 Full Face 100 02/15/18 09:56 80 02/15/18 08:40 87 25 100 Full Face 100 Intake and Output 02/15/18 02/16/18 19:00 07:00 Intake Total 1188.334 ml 1435 ml Output Total 650 ml 700 ml Balance 538.334 ml 735 ml IV Total 988.334 ml 955 ml Tube Feeding 200 ml 480 ml Output Urine Total 650 ml 700 ml # Bowel Movements 2 Height (Feet): 4 Height (Inches): 0.00 Weight (Pounds): 98 General Appearance: no apparent distress, confused EENT: normal ENT inspection Neck: normal alignment, supple Cardiovascular: normal rate, regular rhythm Respiratory/Chest: rhonchi - bilaterally Abdomen: non tender, soft Edema: no edema noted Arm (L), no edema noted Arm (R), no edema noted Leg (L), no edema noted Leg (R), no edema noted Pedal (L), no edema noted Pedal (R), no edema noted Generalized Jorge Graf M.D. Feb 16, 2018 08:24
[2018-02-16] MEDS: Enoxaparin 30mg Inj SUBQ SCH (09:38)
[2018-02-16] MEDS: Digoxin 0.125mg tab GT SCH (09:39)
[2018-02-16] MEDS: Ascorbic Acid 500mg tab GT SCH (09:39)
[2018-02-16] MEDS: Vancomycin 750mg/NS 250ml IVPB SCH (11:49)
[2018-02-16 12:51] VITALS: BP 134/81
--- NOTE | 2018-02-16 14:13 | Pulmonology Progress Note ---
Assessment/Plan Assessment/Plan IMPRESSION: 1. Bilateral pneumonia. 2. Respiratory failure on BiPAP 3. Hypertension. 4. Diabetes mellitus. 5. Dehydration, hypernatremia 6. Tardive dyskinesia DISCUSSION: 1. Continue BiPAP, not able to tolerate weaning 2. bilateral infiltrates on CT 3. Antibiotics. 4. Await bioethics decision per conservator; I rec comfort care and DNR 5. DVT and GI prophylaxes. Prognosis poor Subjective ROS Limited/Unobtainable: Yes Allergies: Coded Allergies: No Known Allergies (Verified , 03/10/07) Objective Last 24 Hour Vital Signs Date Time Temp Pulse Resp B/P (MAP) Pulse Ox O2 Delivery O2 Flow Rate FiO2 02/16/18 12:51 99.4 96 32 134/81 100 Bi-pap 99.4 02/16/18 12:50 99.4 96 32 100 Bi-pap 100.0 99.4 02/16/18 12:49 97 02/16/18 12:00 100 02/16/18 10:42 70 23 98 Full Face 100 02/16/18 09:39 95 02/16/18 09:25 85 26 95 Full Face 100 02/16/18 08:26 82 02/16/18 08:00 100 02/16/18 08:00 98.8 95 24 149/73 99 Bi-pap 100 98.8 02/16/18 06:45 80 32 93 Full Face 100 02/16/18 06:45 93 Bi-pap 02/16/18 06:45 Bi-pap 02/16/18 05:55 92 125/64 02/16/18 04:48 88 22 99 Full Face 80 02/16/18 04:00 97.9 87 28 122/65 97 Bi-pap 100 97.9 02/16/18 04:00 100 02/16/18 04:00 112 02/16/18 03:24 88 25 95 Full Face 100 02/16/18 01:26 89 23 96 Full Face 100 02/16/18 00:00 100 02/16/18 00:00 98.1 83 30 119/63 97 Bi-pap 100 98.1 02/16/18 00:00 92 02/15/18 23:24 84 25 95 Full Face 100 02/15/18 21:30 94 125/73 02/15/18 20:48 101 32 95 Full Face 100 02/15/18 20:00 98.9 98 30 123/73 98 Bi-pap 100 98.9 02/15/18 20:00 100 02/15/18 20:00 99 02/15/18 19:13 103 29 96 Full Face 100 02/15/18 19:12 Bi-pap 02/15/18 19:12 99 Bi-pap 02/15/18 17:12 101 28 96 Full Face 100 02/15/18 16:00 100 02/15/18 16:00 98.0 96 38 142/77 95 Bi-pap 100 98.0 02/15/18 16:00 93 02/15/18 14:42 103 30 95 Full Face 100 02/15/18 14:30 103 26 91 91 Intake and Output 02/15/18 02/16/18 19:00 07:00 Intake Total 1188.334 ml 1435 ml Output Total 650 ml 700 ml Balance 538.334 ml 735 ml IV Total 988.334 ml 955 ml Tube Feeding 200 ml 480 ml Output Urine Total 650 ml 700 ml # Bowel Movements 2 Objective on BiPAP General Appearance: no acute distress, cachetic Respiratory/Chest: rhonchi Cardiovascular: normal rate Laboratory Tests 02/16/18 08:55: Vancomycin Level Trough 7.5 Current Medications Medications (Trade) Dose Ordered Sig/Rosetta Route PRN Reason Start Time Stop Time Status Last Admin Dose Admin Acetaminophen (Tylenol) 650 mg Q4H PRN GT Mild Pain/Temp > 100.5 02/09/18 16:00 03/10/18 15:59 Ascorbic Acid (Vitamin C) 500 mg DAILY GT 02/10/18 09:00 03/07/18 08:59 02/16/18 09:39 Clonidine HCl (Catapres Tab) 0.1 mg Q8H PRN GT SBP >160 02/09/18 17:00 03/09/18 16:59 02/09/18 17:31 Dextrose 1,000 ml @ 75 mls/hr [id number] IV 02/11/18 17:30 03/13/18 17:29 02/16/18 04:01 Dextrose (Dextrose 50%) 25 ml STAT PRN IV Hypoglycemia 02/09/18 16:00 03/11/18 15:59 Dextrose (Dextrose 50%) 50 ml STAT PRN IV Hypoglycemia 02/09/18 16:00 03/11/18 15:59 Digoxin (Lanoxin) 0.125 mg DAILY GT 02/10/18 09:00 03/07/18 08:59 02/16/18 09:39 Diltiazem HCl (Cardizem) 30 mg EVERY 8 HOURS ORAL 02/10/18 22:00 03/12/18 21:59 02/16/18 05:55 Enoxaparin Sodium (Lovenox) 30 mg Q24H SUBQ 02/10/18 09:00 03/07/18 08:59 02/16/18 09:38 Famotidine (Pepcid) 20 mg DAILY GT 02/10/18 09:00 03/10/18 08:59 02/16/18 09:40 Insulin Aspart (NovoLOG) EVERY 6 HOURS SUBQ 02/09/18 18:00 03/07/18 06:29 02/16/18 11:53 Lorazepam (Ativan 2mg/ml 1ml) 1 mg Q4H PRN IV For Anxiety 02/13/18 10:30 02/20/18 10:29 02/14/18 22:15 Meropenem 500 mg/ Sodium Chloride 55 ml @ 110 mls/hr Q12H IVPB 02/13/18 18:30 02/18/18 18:29 02/16/18 05:57 Vancomycin HCl (Vanco rx to dose) 1 ea DAILY PRN MISC Per rx protocol 02/14/18 08:00 03/16/18 07:59 Vancomycin/Sodium Chloride 250 ml @ 166.667 mls/hr Q24H IVPB 02/14/18 10:00 02/19/18 09:59 02/16/18 11:49 Rashawn Vang MD Feb 16, 2018 14:13
--- NOTE | 2018-02-16 15:36 | Infectious Diseases Prog Note ---
Assessment/Plan Problems: (1) HCAP (healthcare-associated pneumonia) Assessment & Plan: complicated with respiratory failure, on meropenem empiric coverage , and vancomycin to cover for gram positive cocci bacteremia , monitor CXR and ABG . pulmonary is following. she is BIBAP dependant and my need trach by now. 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 continue local wound care and dressing changes as per hospital protocol . was evaluated by general surgery (3) Sepsis Assessment & Plan: ruled out, with coag negative staphylococcus most likely contaminant , grew from one set , will stop vancomycin empiric coverage (4) Acute respiratory failure Assessment & Plan: with hypoxemia , due to the above, now BIPAP dependant , pulmonary is following, monitor CXR and ABG . she may need tracheostomy Subjective ROS Limited/Unobtainable: Yes Allergies: Coded Allergies: No Known Allergies (Verified , 03/10/07) Subjective she was quiet, and comfortable lying in bed , still on BIPAP machine , with max FIO2 of 100 %. can't be weaned off , afebrile, no cough or significant phlegm, no diarrhea Objective Vital Signs Last 24 Hour Vital Signs Date Time Temp Pulse Resp B/P (MAP) Pulse Ox O2 Delivery O2 Flow Rate FiO2 02/16/18 15:03 98 26 99 Full Face 100 02/16/18 14:45 96 134/81 02/16/18 12:51 99.4 96 32 134/81 100 Bi-pap 99.4 02/16/18 12:50 99.4 96 32 100 Bi-pap 100.0 99.4 02/16/18 12:49 97 02/16/18 12:00 100 02/16/18 10:42 70 23 98 Full Face 100 02/16/18 09:39 95 02/16/18 09:25 85 26 95 Full Face 100 02/16/18 08:26 82 02/16/18 08:00 100 02/16/18 08:00 98.8 95 24 149/73 99 Bi-pap 100 98.8 02/16/18 06:45 80 32 93 Full Face 100 02/16/18 06:45 93 Bi-pap 02/16/18 06:45 Bi-pap 02/16/18 05:55 92 125/64 02/16/18 04:48 88 22 99 Full Face 80 02/16/18 04:00 97.9 87 28 122/65 97 Bi-pap 100 97.9 02/16/18 04:00 100 02/16/18 04:00 112 02/16/18 03:24 88 25 95 Full Face 100 02/16/18 01:26 89 23 96 Full Face 100 02/16/18 00:00 100 02/16/18 00:00 98.1 83 30 119/63 97 Bi-pap 100 98.1 02/16/18 00:00 92 02/15/18 23:24 84 25 95 Full Face 100 02/15/18 21:30 94 125/73 02/15/18 20:48 101 32 95 Full Face 100 02/15/18 20:00 98.9 98 30 123/73 98 Bi-pap 100 98.9 02/15/18 20:00 100 02/15/18 20:00 99 02/15/18 19:13 103 29 96 Full Face 100 02/15/18 19:12 Bi-pap 02/15/18 19:12 99 Bi-pap 02/15/18 17:12 101 28 96 Full Face 100 02/15/18 16:00 100 02/15/18 16:00 98.0 96 38 142/77 95 Bi-pap 100 98.0 02/15/18 16:00 93 Height (Feet): 4 Height (Inches): 0.00 Weight (Pounds): 98 General Appearance: WD/WN, no acute distress, cachetic HEENT: normocephalic, atraumatic, anicteric, supple, no JVD Respiratory/Chest: chest wall non-tender, no respiratory distress, no accessory muscle use, decreased breath sounds, crackles/rales Cardiovascular: normal peripheral pulses, normal rate, regular rhythm, no gallop/murmur, no JVD Abdomen: normal bowel sounds, soft, non tender, no organomegaly, non distended , no mass, no scars Extremities: no cyanosis, no clubbing Skin: no rash, no lesions, ulcers - on the sacrum and the hip Neurologic/Psychiatric: alert, unresponsiveness Lymphatic: no neck adenopathy, no groin adenopathy Laboratory Tests Test 02/16/18 08:55 Vancomycin Level Trough 7.5 ug/mL (5.0-12.0) Current Medications Medications (Trade) Dose Ordered Sig/Rosetta Route PRN Reason Start Time Stop Time Status Last Admin Dose Admin Acetaminophen (Tylenol) 650 mg Q4H PRN GT Mild Pain/Temp > 100.5 02/09/18 16:00 03/10/18 15:59 Ascorbic Acid (Vitamin C) 500 mg DAILY GT 02/10/18 09:00 03/07/18 08:59 02/16/18 09:39 Clonidine HCl (Catapres Tab) 0.1 mg Q8H PRN GT SBP >160 02/09/18 17:00 03/09/18 16:59 02/09/18 17:31 Dextrose 1,000 ml @ 75 mls/hr [id number] IV 02/11/18 17:30 03/13/18 17:29 02/16/18 04:01 Dextrose (Dextrose 50%) 25 ml STAT PRN IV Hypoglycemia 02/09/18 16:00 03/11/18 15:59 Dextrose (Dextrose 50%) 50 ml STAT PRN IV Hypoglycemia 02/09/18 16:00 03/11/18 15:59 Digoxin (Lanoxin) 0.125 mg DAILY GT 02/10/18 09:00 03/07/18 08:59 02/16/18 09:39 Diltiazem HCl (Cardizem) 30 mg EVERY 8 HOURS ORAL 02/10/18 22:00 03/12/18 21:59 02/16/18 14:45 Enoxaparin Sodium (Lovenox) 30 mg Q24H SUBQ 02/10/18 09:00 03/07/18 08:59 02/16/18 09:38 Famotidine (Pepcid) 20 mg DAILY GT 02/10/18 09:00 03/10/18 08:59 02/16/18 09:40 Insulin Aspart (NovoLOG) EVERY 6 HOURS SUBQ 02/09/18 18:00 03/07/18 06:29 02/16/18 11:53 Lorazepam (Ativan 2mg/ml 1ml) 1 mg Q4H PRN IV For Anxiety 02/13/18 10:30 02/20/18 10:29 02/14/18 22:15 Meropenem 500 mg/ Sodium Chloride 55 ml @ 110 mls/hr Q12H IVPB 02/13/18 18:30 02/18/18 18:29 02/16/18 05:57 Dom Hoffman M.D. Feb 16, 2018 15:36
[2018-02-16 16:00] VITALS: BP 155/77
--- NOTE | 2018-02-16 16:39 | General Progress Note ---
Assessment/Plan Assessment/Plan Dementia encephalopathy the pt lacks capacity to make decisions haldol prn will fill out the forms Subjective Date patient seen: Feb 16, 2018 Allergies: Coded Allergies: No Known Allergies (Verified , 03/10/07) Subjective the pt is confused lethargic Objective Last 24 Hour Vital Signs Date Time Temp Pulse Resp B/P (MAP) Pulse Ox O2 Delivery O2 Flow Rate FiO2 02/16/18 15:03 98 26 99 Full Face 100 02/16/18 14:45 96 134/81 02/16/18 12:51 99.4 96 32 134/81 100 Bi-pap 99.4 02/16/18 12:50 99.4 96 32 100 Bi-pap 100.0 99.4 02/16/18 12:49 97 02/16/18 12:00 100 02/16/18 10:42 70 23 98 Full Face 100 02/16/18 09:39 95 02/16/18 09:25 85 26 95 Full Face 100 02/16/18 08:26 82 02/16/18 08:00 100 02/16/18 08:00 98.8 95 24 149/73 99 Bi-pap 100 98.8 02/16/18 06:45 80 32 93 Full Face 100 02/16/18 06:45 93 Bi-pap 02/16/18 06:45 Bi-pap 02/16/18 05:55 92 125/64 02/16/18 04:48 88 22 99 Full Face 80 02/16/18 04:00 97.9 87 28 122/65 97 Bi-pap 100 97.9 02/16/18 04:00 100 02/16/18 04:00 112 02/16/18 03:24 88 25 95 Full Face 100 02/16/18 01:26 89 23 96 Full Face 100 02/16/18 00:00 100 02/16/18 00:00 98.1 83 30 119/63 97 Bi-pap 100 98.1 02/16/18 00:00 92 02/15/18 23:24 84 25 95 Full Face 100 02/15/18 21:30 94 125/73 02/15/18 20:48 101 32 95 Full Face 100 02/15/18 20:00 98.9 98 30 123/73 98 Bi-pap 100 98.9 02/15/18 20:00 100 02/15/18 20:00 99 02/15/18 19:13 103 29 96 Full Face 100 02/15/18 19:12 Bi-pap 02/15/18 19:12 99 Bi-pap 02/15/18 17:12 101 28 96 Full Face 100 Intake and Output 02/15/18 02/16/18 19:00 07:00 Intake Total 1188.334 ml 1435 ml Output Total 650 ml 700 ml Balance 538.334 ml 735 ml IV Total 988.334 ml 955 ml Tube Feeding 200 ml 480 ml Output Urine Total 650 ml 700 ml # Bowel Movements 2 Laboratory Tests 02/16/18 08:55: Vancomycin Level Trough 7.5 Height (Feet): 4 Height (Inches): 0.00 Weight (Pounds): 98 General Appearance: no apparent distress, alert Darling Baker MD Feb 16, 2018 16:39
--- NOTE | 2018-02-16 17:11 | Cardiac Electrophysiology PN ---
Assessment/Plan Assessment/Plan 1. Paroxysmal atrial fibrillation. Continue digoxin 0.125 mg daily and Cardizem 30 tid In sinus rhythm. Keep off anticoagulation. Echocardiogram Nl EF. Only on SQ lovenox 30 daily 2. Hypertension. On Cardizem 30 tid 3. Respiratory failure and sepsis, on BiPAP and Abx 4. Diabetes, on insulin. 5. Dementia. 6. Dysphagia, status post PEG placement. 7. Sacral decubitus stage III. FU by Dr. Austin. 8. CVA with aphasia and contractures. DW RN Subjective Subjective In and out of atrial fib. On BIPAP. Desaturated again Objective Last 24 Hour Vital Signs Date Time Temp Pulse Resp B/P (MAP) Pulse Ox O2 Delivery O2 Flow Rate FiO2 02/16/18 16:45 121 22 97 Full Face 100 02/16/18 15:03 98 26 99 Full Face 100 02/16/18 14:45 96 134/81 02/16/18 12:51 99.4 96 32 134/81 100 Bi-pap 99.4 02/16/18 12:50 99.4 96 32 100 Bi-pap 100.0 99.4 02/16/18 12:49 97 02/16/18 12:00 100 02/16/18 10:42 70 23 98 Full Face 100 02/16/18 09:39 95 02/16/18 09:25 85 26 95 Full Face 100 02/16/18 08:26 82 02/16/18 08:00 100 02/16/18 08:00 98.8 95 24 149/73 99 Bi-pap 100 98.8 02/16/18 06:45 80 32 93 Full Face 100 02/16/18 06:45 93 Bi-pap 02/16/18 06:45 Bi-pap 02/16/18 05:55 92 125/64 02/16/18 04:48 88 22 99 Full Face 80 02/16/18 04:00 97.9 87 28 122/65 97 Bi-pap 100 97.9 02/16/18 04:00 100 02/16/18 04:00 112 02/16/18 03:24 88 25 95 Full Face 100 02/16/18 01:26 89 23 96 Full Face 100 02/16/18 00:00 100 02/16/18 00:00 98.1 83 30 119/63 97 Bi-pap 100 98.1 02/16/18 00:00 92 02/15/18 23:24 84 25 95 Full Face 100 02/15/18 21:30 94 125/73 02/15/18 20:48 101 32 95 Full Face 100 02/15/18 20:00 98.9 98 30 123/73 98 Bi-pap 100 98.9 02/15/18 20:00 100 02/15/18 20:00 99 02/15/18 19:13 103 29 96 Full Face 100 02/15/18 19:12 Bi-pap 02/15/18 19:12 99 Bi-pap 02/15/18 17:12 101 28 96 Full Face 100 Intake and Output 02/15/18 02/16/18 19:00 07:00 Intake Total 1188.334 ml 1435 ml Output Total 650 ml 700 ml Balance 538.334 ml 735 ml IV Total 988.334 ml 955 ml Tube Feeding 200 ml 480 ml Output Urine Total 650 ml 700 ml # Bowel Movements 2 Laboratory Tests Test 02/16/18 08:55 Vancomycin Level Trough 7.5 ug/mL (5.0-12.0) Objective HEAD AND NECK: No JVD. On BIPAP LUNGS: Coarse rhonchi bilaterally. CARDIOVASCULAR: Tachy S1 and S2 with no gallop or murmur. ABDOMEN: Soft and status post G-tube. EXTREMITIES: No pitting edema. She has sacral decubitus. Emmanuel Edgar MD Feb 16, 2018 17:11
[2018-02-16 20:00] VITALS: BP 129/72
[2018-02-17] VITALS: BP 120/72
[2018-02-17 04:00] VITALS: BP 128/79
[2018-02-17] MEDS: LORazepam Inj 2mg/ml 1ml IV PRN (05:45)
[2018-02-17] MEDS: NovoLOG Insulin Flexpen SUBQ SCH ×3 (05:53→17:07)
[2018-02-17] MEDS: dilTIAZem HCl 30mg tab ORAL SCH ×3 (05:53→22:28)
[2018-02-17 06:10] LABS: BASOPHILS % (AUTO) 0.6 % (0.0-2.0); EOSINOPHILS % (AUTO) 2.3 % (0.0-3.0); HEMATOCRIT 35.6 % (37.0-47.0); HEMOGLOBIN 11.3 G/DL (12.0-16.0); LYMPHOCYTES % (AUTO) 15.9 % (20.0-45.0); MEAN CORPUSCULAR VOLUME 85 FL (80-99); MONOCYTES % (AUTO) 5.5 % (1.0-10.0); NEUTROPHILS % (AUTO) 75.7 % (45.0-75.0); PLATELET COUNT 404 K/UL (150-450); RED BLOOD COUNT 4.17 M/UL (4.20-5.40); RED CELL DISTRIBUTION WIDTH 16.1 % (11.6-14.8); WHITE BLOOD COUNT 14.1 K/UL (4.8-10.8)
[2018-02-17 06:24] LABS: ANION GAP 2 mmol/L (5-15); BLOOD UREA NITROGEN 11 mg/dL (7-18); CALCIUM 8.6 MG/DL (8.5-10.1); CARBON DIOXIDE 31 MMOL/L (21-32); CHLORIDE 102 MMOL/L (98-107); CREATININE 0.5 MG/DL (0.55-1.30); POTASSIUM 4.3 MMOL/L (3.5-5.1); SODIUM 135 MMOL/L (136-145)
[2018-02-17] MEDS: Meropenem 500 MG in NS 55 ML IVPB SCH ×2 (06:25→17:08)
[2018-02-17 08:00] VITALS: BP 131/77
--- NOTE | 2018-02-17 08:24 | Nephrology Progress Note ---
Assessment/Plan Assessment/Plan 1. Sepsis- - Abx per ID mgmt. Stable 2. Scral Decub- Gen Surg 3. Hyponatremia- Na at 135 4. Resp [place]- on BiPaP, defer mgmt to Pulm. Under bioethics review. Failed weaning off BiPAP 5. AFib- digoxin + cardizem 6. DVT prophylaxis- lovenox Awaiting poss court decision to convert patient to DNR/I comfort care Subjective Date patient seen: Feb 17, 2018 Time patient seen: 08:20 ROS Limited/Unobtainable: Yes Allergies: Coded Allergies: No Known Allergies (Verified , 03/10/07) Subjective Patient remains on BiPAP. Failed weaning trials Objective Last 24 Hour Vital Signs Date Time Temp Pulse Resp B/P (MAP) Pulse Ox O2 Delivery O2 Flow Rate FiO2 02/17/18 08:18 100 02/17/18 06:56 Bi-pap 02/17/18 06:56 105 26 92 Full Face 100 02/17/18 06:56 93 Bi-pap 02/17/18 05:53 95 128/79 02/17/18 05:13 98 02/17/18 05:00 95 29 99 Full Face 60 02/17/18 04:00 70 02/17/18 04:00 98.1 96 25 128/79 100 Bi-pap 70 98.1 02/17/18 03:14 91 23 100 Full Face 70 02/17/18 01:14 84 20 100 Full Face 70 02/17/18 00:00 80 02/17/18 00:00 98.3 79 27 120/72 99 Bi-pap 80 98.3 02/16/18 23:56 82 02/16/18 23:13 90 22 100 Full Face 80 02/16/18 21:28 77 129/72 02/16/18 20:42 77 21 100 Full Face 100 02/16/18 20:00 100 02/16/18 20:00 98.4 87 25 129/72 100 Bi-pap 100 98.4 02/16/18 19:41 90 02/16/18 19:03 99 Bi-pap 02/16/18 19:03 92 24 99 Full Face 100 02/16/18 19:03 Bi-pap 02/16/18 17:18 102 02/16/18 16:45 121 22 97 Full Face 100 02/16/18 16:00 99.5 107 34 155/77 98 Bi-pap 100 99.5 02/16/18 16:00 100 02/16/18 15:03 98 26 99 Full Face 100 02/16/18 14:45 96 134/81 02/16/18 12:51 99.4 96 32 134/81 100 Bi-pap 99.4 02/16/18 12:50 99.4 96 32 100 Bi-pap 100.0 99.4 02/16/18 12:49 97 02/16/18 12:00 100 02/16/18 10:42 70 23 98 Full Face 100 02/16/18 09:39 95 02/16/18 09:25 85 26 95 Full Face 100 02/16/18 08:26 82 Intake and Output 02/16/18 02/17/18 19:00 07:00 Intake Total 650 ml 728.75 ml Output Total 700 ml 225 ml Balance -50 ml 503.75 ml Free Water 50 ml 150 ml IV Total 98.75 ml Tube Feeding 480 ml 480 ml Other 120 ml Output Urine Total 700 ml 225 ml # Bowel Movements 4 Laboratory Tests 02/16/18 08:55: Vancomycin Level Trough 7.5 02/17/18 04:11: White Blood Count 14.1H, Red Blood Count 4.17L, Hemoglobin 11.3L, Hematocrit 35.6L, Mean Corpuscular Volume 85, Mean Corpuscular Hemoglobin 27.1, Mean Corpuscular Hemoglobin Concent 31.7L, Red Cell Distribution Width 16.1H, Platelet Count 404, Mean Platelet Volume 8.7, Neutrophils (%) (Auto) 75.7H, Lymphocytes (%) (Auto) 15.9L, Monocytes (%) (Auto) 5.5, Eosinophils (%) (Auto) 2.3, Basophils (%) (Auto) 0.6, Sodium Level 135L, Potassium Level 4.3, Chloride Level 102, Carbon Dioxide Level 31, Anion Gap 2L, Blood Urea Nitrogen 11, Creatinine 0.5L, Estimat Glomerular Filtration Rate , Glucose Level 86, Calcium Level 8.6 Height (Feet): 4 Height (Inches): 0.00 Weight (Pounds): 111 General Appearance: confused EENT: normal ENT inspection Neck: normal alignment, supple Cardiovascular: normal rate, regular rhythm Respiratory/Chest: rhonchi - bilaterally Abdomen: non tender, soft Edema: no edema noted Arm (L), no edema noted Arm (R), no edema noted Leg (L), no edema noted Leg (R), no edema noted Pedal (L), no edema noted Pedal (R), no edema noted Generalized Jorge Graf M.D. Feb 17, 2018 08:24
[2018-02-17] MEDS: Digoxin 0.125mg tab GT SCH (08:37)
[2018-02-17] MEDS: Ascorbic Acid 500mg tab GT SCH (08:38)
[2018-02-17] MEDS: Enoxaparin 30mg Inj SUBQ SCH (08:39)
--- NOTE | 2018-02-17 11:34 | Diagnostic Imaging Report ---
EXAM: XR Chest, 1 View CLINICAL HISTORY: SOB TECHNIQUE: Frontal view of the chest. COMPARISON: No relevant prior studies available. FINDINGS: Limitations: Limited, patient is rotated. Lungs: Retrocardiac atelectasis/consolidation/aspiration. Reduced lung volumes. Accentuation of the interstitial markings with reticular nodular opacities. Pleural space: Unremarkable. No pneumothorax. Heart: Unremarkable. No cardiomegaly. Mediastinum: Unremarkable. Bones/joints: Superiorly elevated left humeral head suggesting chronic rotator cuff tear. Tubes, lines and devices: Percutaneous g-tube. Other findings: Presumed skinfold overlying the left hemithorax. Correlate. Consider short-term followup as warranted. IMPRESSION: Retrocardiac atelectasis/consolidation/aspiration.
[2018-02-17 12:00] VITALS: BP 138/66
--- NOTE | 2018-02-17 14:30 | Pulmonology Progress Note ---
Assessment/Plan Assessment/Plan IMPRESSION: 1. Bilateral pneumonia. 2. Respiratory failure on BiPAP 3. Hypertension. 4. Diabetes mellitus. 5. Dehydration, hypernatremia 6. Tardive dyskinesia DISCUSSION: 1. Continue BiPAP, not able to tolerate weaning from 100% O2 2. CXR with retrocardiac atelectasis/consolidation/aspiration. 3. Antibiotics. 4. Await bioethics decision per conservator; I rec comfort care and DNR 5. DVT and GI prophylaxes. Prognosis poor Subjective ROS Limited/Unobtainable: Yes Allergies: Coded Allergies: No Known Allergies (Verified , 03/10/07) Objective Last 24 Hour Vital Signs Date Time Temp Pulse Resp B/P (MAP) Pulse Ox O2 Delivery O2 Flow Rate FiO2 02/17/18 13:42 87 138/66 02/17/18 13:00 104 27 99 Full Face 100 02/17/18 12:00 98.8 92 25 138/66 98 Bi-pap 100 98.8 02/17/18 12:00 100 02/17/18 12:00 87 02/17/18 10:30 102 24 98 Full Face 100 02/17/18 08:52 97 24 97 Full Face 100 02/17/18 08:37 109 02/17/18 08:18 100 02/17/18 08:00 98.2 109 24 131/77 94 Bi-pap 100 98.2 02/17/18 08:00 116 02/17/18 06:56 Bi-pap 02/17/18 06:56 105 26 92 Full Face 100 02/17/18 06:56 93 Bi-pap 02/17/18 05:53 95 128/79 02/17/18 05:13 98 02/17/18 05:00 95 29 99 Full Face 60 02/17/18 04:00 70 02/17/18 04:00 98.1 96 25 128/79 100 Bi-pap 70 98.1 02/17/18 03:14 91 23 100 Full Face 70 02/17/18 01:14 84 20 100 Full Face 70 02/17/18 00:00 80 02/17/18 00:00 98.3 79 27 120/72 99 Bi-pap 80 98.3 02/16/18 23:56 82 02/16/18 23:13 90 22 100 Full Face 80 02/16/18 21:28 77 129/72 02/16/18 20:42 77 21 100 Full Face 100 02/16/18 20:00 100 02/16/18 20:00 98.4 87 25 129/72 100 Bi-pap 100 98.4 02/16/18 19:41 90 02/16/18 19:03 99 Bi-pap 02/16/18 19:03 92 24 99 Full Face 100 02/16/18 19:03 Bi-pap 02/16/18 17:18 102 02/16/18 16:45 121 22 97 Full Face 100 02/16/18 16:00 99.5 107 34 155/77 98 Bi-pap 100 99.5 02/16/18 16:00 100 02/16/18 15:03 98 26 99 Full Face 100 02/16/18 14:45 96 134/81 Intake and Output 02/16/18 02/17/18 19:00 07:00 Intake Total 650 ml 728.75 ml Output Total 700 ml 225 ml Balance -50 ml 503.75 ml Free Water 50 ml 150 ml IV Total 98.75 ml Tube Feeding 480 ml 480 ml Other 120 ml Output Urine Total 700 ml 225 ml # Bowel Movements 4 Objective on BiPAP, tardive dyskinesia General Appearance: cachetic Respiratory/Chest: decreased breath sounds Cardiovascular: normal rate Abdomen: soft, non tender Laboratory Tests 02/17/18 04:11: White Blood Count 14.1H, Red Blood Count 4.17L, Hemoglobin 11.3L, Hematocrit 35.6L, Mean Corpuscular Volume 85, Mean Corpuscular Hemoglobin 27.1, Mean Corpuscular Hemoglobin Concent 31.7L, Red Cell Distribution Width 16.1H, Platelet Count 404, Mean Platelet Volume 8.7, Neutrophils (%) (Auto) 75.7H, Lymphocytes (%) (Auto) 15.9L, Monocytes (%) (Auto) 5.5, Eosinophils (%) (Auto) 2.3, Basophils (%) (Auto) 0.6, Sodium Level 135L, Potassium Level 4.3, Chloride Level 102, Carbon Dioxide Level 31, Anion Gap 2L, Blood Urea Nitrogen 11, Creatinine 0.5L, Estimat Glomerular Filtration Rate , Glucose Level 86, Calcium Level 8.6 Current Medications Medications (Trade) Dose Ordered Sig/Rosetta Route PRN Reason Start Time Stop Time Status Last Admin Dose Admin Acetaminophen (Tylenol) 650 mg Q4H PRN GT Mild Pain/Temp > 100.5 02/09/18 16:00 03/10/18 15:59 Ascorbic Acid (Vitamin C) 500 mg DAILY GT 02/10/18 09:00 03/07/18 08:59 02/17/18 08:38 Clonidine HCl (Catapres Tab) 0.1 mg Q8H PRN GT SBP >160 02/09/18 17:00 03/09/18 16:59 02/09/18 17:31 Dextrose 1,000 ml @ 75 mls/hr [id number] IV 02/11/18 17:30 03/13/18 17:29 02/17/18 06:25 Dextrose (Dextrose 50%) 25 ml STAT PRN IV Hypoglycemia 02/09/18 16:00 03/11/18 15:59 Dextrose (Dextrose 50%) 50 ml STAT PRN IV Hypoglycemia 02/09/18 16:00 03/11/18 15:59 Digoxin (Lanoxin) 0.125 mg DAILY GT 02/10/18 09:00 03/07/18 08:59 02/17/18 08:37 Diltiazem HCl (Cardizem) 30 mg EVERY 8 HOURS ORAL 02/10/18 22:00 03/12/18 21:59 02/17/18 13:42 Enoxaparin Sodium (Lovenox) 30 mg Q24H SUBQ 02/10/18 09:00 03/07/18 08:59 02/17/18 08:39 Famotidine (Pepcid) 20 mg DAILY GT 02/10/18 09:00 03/10/18 08:59 02/17/18 08:37 Insulin Aspart (NovoLOG) EVERY 6 HOURS SUBQ 02/09/18 18:00 03/07/18 06:29 02/17/18 12:01 Lorazepam (Ativan 2mg/ml 1ml) 1 mg Q4H PRN IV For Anxiety 02/13/18 10:30 02/20/18 10:29 02/17/18 05:45 Meropenem 500 mg/ Sodium Chloride 55 ml @ 110 mls/hr Q12H IVPB 02/13/18 18:30 02/18/18 18:29 02/17/18 06:25 Rashawn Vang MD Feb 17, 2018 14:30
--- NOTE | 2018-02-17 14:31 | Infectious Diseases Prog Note ---
Assessment/Plan Problems: (1) HCAP (healthcare-associated pneumonia) Assessment & Plan: complicated with respiratory failure, on meropenem empiric coverage , monitor CXR and ABG . pulmonary is following. she is BIBAP dependant and my need trach by now.will treat for 10 days (2) Sacral wound Assessment & Plan: colonized with ESBL producing E coli , klebsiella pneumonia and providenciae stuartii . continue local wound care and dressing changes as per hospital protocol . was evaluated by general surgery (3) Sepsis Assessment & Plan: ruled out, with coag negative staphylococcus most likely contaminant , grew from one set , will stop vancomycin empiric coverage (4) Acute respiratory failure Assessment & Plan: with hypoxemia , due to the above, now BIPAP dependant , pulmonary is following, monitor CXR and ABG . she may need tracheostomy Subjective ROS Limited/Unobtainable: Yes Allergies: Coded Allergies: No Known Allergies (Verified , 03/10/07) Subjective she was quiet, and comfortable lying in bed , still on BIPAP machine , with max FIO2 of 100 %. can't be weaned off , afebrile, no cough or significant phlegm, no diarrhea Objective Vital Signs Last 24 Hour Vital Signs Date Time Temp Pulse Resp B/P (MAP) Pulse Ox O2 Delivery O2 Flow Rate FiO2 02/17/18 13:42 87 138/66 02/17/18 13:00 104 27 99 Full Face 100 02/17/18 12:00 98.8 92 25 138/66 98 Bi-pap 100 98.8 02/17/18 12:00 100 02/17/18 12:00 87 02/17/18 10:30 102 24 98 Full Face 100 02/17/18 08:52 97 24 97 Full Face 100 02/17/18 08:37 109 02/17/18 08:18 100 02/17/18 08:00 98.2 109 24 131/77 94 Bi-pap 100 98.2 02/17/18 08:00 116 02/17/18 06:56 Bi-pap 02/17/18 06:56 105 26 92 Full Face 100 02/17/18 06:56 93 Bi-pap 02/17/18 05:53 95 128/79 02/17/18 05:13 98 02/17/18 05:00 95 29 99 Full Face 60 7/4/18 04:00 70 02/17/18 04:00 98.1 96 25 128/79 100 Bi-pap 70 98.1 02/17/18 03:14 91 23 100 Full Face 70 02/17/18 01:14 84 20 100 Full Face 70 02/17/18 00:00 80 02/17/18 00:00 98.3 79 27 120/72 99 Bi-pap 80 98.3 02/16/18 23:56 82 02/16/18 23:13 90 22 100 Full Face 80 02/16/18 21:28 77 129/72 02/16/18 20:42 77 21 100 Full Face 100 02/16/18 20:00 100 02/16/18 20:00 98.4 87 25 129/72 100 Bi-pap 100 98.4 02/16/18 19:41 90 02/16/18 19:03 99 Bi-pap 02/16/18 19:03 92 24 99 Full Face 100 02/16/18 19:03 Bi-pap 02/16/18 17:18 102 02/16/18 16:45 121 22 97 Full Face 100 02/16/18 16:00 99.5 107 34 155/77 98 Bi-pap 100 99.5 02/16/18 16:00 100 02/16/18 15:03 98 26 99 Full Face 100 02/16/18 14:45 96 134/81 Height (Feet): 4 Height (Inches): 0.00 Weight (Pounds): 111 General Appearance: WD/WN, no acute distress, cachetic HEENT: normocephalic, atraumatic, anicteric, mucous membranes moist Respiratory/Chest: chest wall non-tender, no respiratory distress, no accessory muscle use, decreased breath sounds, expiratory wheezing Cardiovascular: normal peripheral pulses, normal rate, regular rhythm, no gallop/murmur, no JVD Abdomen: normal bowel sounds, soft, non tender, no organomegaly, non distended , no mass, no scars Genitourinary: normal external genitalia Extremities: no cyanosis, no clubbing Skin: no rash, no lesions, ulcers - sacral and hip Neurologic/Psychiatric: alert, unresponsiveness Lymphatic: no neck adenopathy, no groin adenopathy Musculoskeletal: normal muscle bulk, no effusion Laboratory Tests Test 02/17/18 04:11 White Blood Count 14.1 K/UL (4.8-10.8) H Red Blood Count 4.17 M/UL (4.20-5.40) L Hemoglobin 11.3 G/DL (12.0-16.0) L Hematocrit 35.6 % (37.0-47.0) L Mean Corpuscular Volume 85 FL (80-99) Mean Corpuscular Hemoglobin 27.1 PG (27.0-31.0) Mean Corpuscular Hemoglobin Concent 31.7 G/DL (32.0-36.0) L Red Cell Distribution Width 16.1 % (11.6-14.8) H Platelet Count 404 K/UL (150-450) Mean Platelet Volume 8.7 FL (6.5-10.1) Neutrophils (%) (Auto) 75.7 % (45.0-75.0) H Lymphocytes (%) (Auto) 15.9 % (20.0-45.0) L Monocytes (%) (Auto) 5.5 % (1.0-10.0) Eosinophils (%) (Auto) 2.3 % (0.0-3.0) Basophils (%) (Auto) 0.6 % (0.0-2.0) Sodium Level 135 MMOL/L (136-145) L Potassium Level 4.3 MMOL/L (3.5-5.1) Chloride Level 102 MMOL/L (98-107) Carbon Dioxide Level 31 MMOL/L (21-32) Anion Gap 2 mmol/L (5-15) L Blood Urea Nitrogen 11 mg/dL (7-18) Creatinine 0.5 MG/DL (0.55-1.30) L Estimat Glomerular Filtration Rate mL/min (>60) Glucose Level 86 MG/DL (74-106) Calcium Level 8.6 MG/DL (8.5-10.1) Current Medications Medications (Trade) Dose Ordered Sig/Rosetta Route PRN Reason Start Time Stop Time Status Last Admin Dose Admin Acetaminophen (Tylenol) 650 mg Q4H PRN GT Mild Pain/Temp > 100.5 02/09/18 16:00 03/10/18 15:59 Ascorbic Acid (Vitamin C) 500 mg DAILY GT 02/10/18 09:00 03/07/18 08:59 02/17/18 08:38 Clonidine HCl (Catapres Tab) 0.1 mg Q8H PRN GT SBP >160 02/09/18 17:00 03/09/18 16:59 02/09/18 17:31 Dextrose 1,000 ml @ 75 mls/hr [id number] IV 02/11/18 17:30 03/13/18 17:29 02/17/18 06:25 Dextrose (Dextrose 50%) 25 ml STAT PRN IV Hypoglycemia 02/09/18 16:00 03/11/18 15:59 Dextrose (Dextrose 50%) 50 ml STAT PRN IV Hypoglycemia 02/09/18 16:00 03/11/18 15:59 Digoxin (Lanoxin) 0.125 mg DAILY GT 02/10/18 09:00 03/07/18 08:59 02/17/18 08:37 Diltiazem HCl (Cardizem) 30 mg EVERY 8 HOURS ORAL 02/10/18 22:00 03/12/18 21:59 02/17/18 13:42 Enoxaparin Sodium (Lovenox) 30 mg Q24H SUBQ 02/10/18 09:00 03/07/18 08:59 02/17/18 08:39 Famotidine (Pepcid) 20 mg DAILY GT 02/10/18 09:00 03/10/18 08:59 02/17/18 08:37 Insulin Aspart (NovoLOG) EVERY 6 HOURS SUBQ 02/09/18 18:00 03/07/18 06:29 02/17/18 12:01 Lorazepam (Ativan 2mg/ml 1ml) 1 mg Q4H PRN IV For Anxiety 02/13/18 10:30 02/20/18 10:29 02/17/18 05:45 Meropenem 500 mg/ Sodium Chloride 55 ml @ 110 mls/hr Q12H IVPB 02/13/18 18:30 02/18/18 18:29 02/17/18 06:25 Dom Hoffman M.D. Feb 17, 2018 14:31
--- NOTE | 2018-02-17 14:43 | Cardiac Electrophysiology PN ---
Assessment/Plan Assessment/Plan 1. Paroxysmal atrial fibrillation. In SR on digoxin 0.125 mg daily and Cardizem 30 tid Keep off anticoagulation. Echocardiogram Nl EF.On SQ Lovenox 30 daily 2. Hypertension. On Cardizem 30 tid 3. Respiratory failure and sepsis, on BiPAP and Abx 4. Diabetes, on insulin. 5. Dementia. 6. Dysphagia, status post PEG placement. 7. Sacral decubitus stage III. FU by Dr. Austin. 8. CVA with aphasia and contractures. DW RN Subjective Subjective In and out of atrial fib. On BIPAP. Desaturated Objective Last 24 Hour Vital Signs Date Time Temp Pulse Resp B/P (MAP) Pulse Ox O2 Delivery O2 Flow Rate FiO2 02/17/18 13:42 87 138/66 02/17/18 13:00 104 27 99 Full Face 100 02/17/18 12:00 98.8 92 25 138/66 98 Bi-pap 100 98.8 02/17/18 12:00 100 02/17/18 12:00 87 02/17/18 10:30 102 24 98 Full Face 100 02/17/18 08:52 97 24 97 Full Face 100 02/17/18 08:37 109 02/17/18 08:18 100 02/17/18 08:00 98.2 109 24 131/77 94 Bi-pap 100 98.2 02/17/18 08:00 116 02/17/18 06:56 Bi-pap 02/17/18 06:56 105 26 92 Full Face 100 02/17/18 06:56 93 Bi-pap 02/17/18 05:53 95 128/79 02/17/18 05:13 98 02/17/18 05:00 95 29 99 Full Face 60 02/17/18 04:00 70 02/17/18 04:00 98.1 96 25 128/79 100 Bi-pap 70 98.1 02/17/18 03:14 91 23 100 Full Face 70 02/17/18 01:14 84 20 100 Full Face 70 02/17/18 00:00 80 02/17/18 00:00 98.3 79 27 120/72 99 Bi-pap 80 98.3 02/16/18 23:56 82 02/16/18 23:13 90 22 100 Full Face 80 02/16/18 21:28 77 129/72 02/16/18 20:42 77 21 100 Full Face 100 02/16/18 20:00 100 02/16/18 20:00 98.4 87 25 129/72 100 Bi-pap 100 98.4 02/16/18 19:41 90 02/16/18 19:03 99 Bi-pap 02/16/18 19:03 92 24 99 Full Face 100 02/16/18 19:03 Bi-pap 02/16/18 17:18 102 02/16/18 16:45 121 22 97 Full Face 100 02/16/18 16:00 99.5 107 34 155/77 98 Bi-pap 100 99.5 02/16/18 16:00 100 02/16/18 15:03 98 26 99 Full Face 100 02/16/18 14:45 96 134/81 Intake and Output 02/16/18 02/17/18 19:00 07:00 Intake Total 650 ml 728.75 ml Output Total 700 ml 225 ml Balance -50 ml 503.75 ml Free Water 50 ml 150 ml IV Total 98.75 ml Tube Feeding 480 ml 480 ml Other 120 ml Output Urine Total 700 ml 225 ml # Bowel Movements 4 Laboratory Tests Test 02/17/18 04:11 White Blood Count 14.1 K/UL (4.8-10.8) H Red Blood Count 4.17 M/UL (4.20-5.40) L Hemoglobin 11.3 G/DL (12.0-16.0) L Hematocrit 35.6 % (37.0-47.0) L Mean Corpuscular Volume 85 FL (80-99) Mean Corpuscular Hemoglobin 27.1 PG (27.0-31.0) Mean Corpuscular Hemoglobin Concent 31.7 G/DL (32.0-36.0) L Red Cell Distribution Width 16.1 % (11.6-14.8) H Platelet Count 404 K/UL (150-450) Mean Platelet Volume 8.7 FL (6.5-10.1) Neutrophils (%) (Auto) 75.7 % (45.0-75.0) H Lymphocytes (%) (Auto) 15.9 % (20.0-45.0) L Monocytes (%) (Auto) 5.5 % (1.0-10.0) Eosinophils (%) (Auto) 2.3 % (0.0-3.0) Basophils (%) (Auto) 0.6 % (0.0-2.0) Sodium Level 135 MMOL/L (136-145) L Potassium Level 4.3 MMOL/L (3.5-5.1) Chloride Level 102 MMOL/L (98-107) Carbon Dioxide Level 31 MMOL/L (21-32) Anion Gap 2 mmol/L (5-15) L Blood Urea Nitrogen 11 mg/dL (7-18) Creatinine 0.5 MG/DL (0.55-1.30) L Estimat Glomerular Filtration Rate mL/min (>60) Glucose Level 86 MG/DL (74-106) Calcium Level 8.6 MG/DL (8.5-10.1) Objective HEAD AND NECK: No JVD. On BIPAP LUNGS: Coarse rhonchi bilaterally. CARDIOVASCULAR: Tachy S1 and S2 with no gallop or murmur. ABDOMEN: Soft and status post G-tube. EXTREMITIES: No pitting edema. She has sacral decubitus. Emmanuel Edgar MD Feb 17, 2018 14:43
[2018-02-17] MEDS ORDERED: Tubing IV Secondary IV ONE (15:14)
[2018-02-17] MEDS ORDERED: NS 275ml ONE ×2 (15:22→15:52)
[2018-02-17 16:00] VITALS: BP 145/79
[2018-02-17 20:00] VITALS: BP 110/70
--- NOTE | 2018-02-17 23:46 | General Progress Note ---
Assessment/Plan Assessment/Plan Dementia encephalopathy the pt lacks capacity to make decisions haldol prn will fill out the forms Subjective Allergies: Coded Allergies: No Known Allergies (Verified , 03/10/07) Subjective the pt is confused lethargic Objective Last 24 Hour Vital Signs Date Time Temp Pulse Resp B/P (MAP) Pulse Ox O2 Delivery O2 Flow Rate FiO2 02/17/18 23:30 78 16 95 Facial 100 02/17/18 22:28 91 110/70 02/17/18 21:30 80 18 94 Facial 100 02/17/18 20:00 98.1 78 21 110/70 100 Bi-pap 100 98.1 02/17/18 20:00 100 02/17/18 19:37 76 02/17/18 19:30 Bi-pap 02/17/18 19:30 74 38 99 Full Face 100 02/17/18 19:30 99 Bi-pap 02/17/18 16:47 76 22 98 Facial 100 02/17/18 16:00 81 02/17/18 16:00 98.0 74 21 145/79 99 Bi-pap 100 98.0 02/17/18 16:00 100 02/17/18 15:00 81 20 100 Facial 100 02/17/18 13:42 87 138/66 02/17/18 13:00 104 27 99 Facial 100 02/17/18 12:00 98.8 92 25 138/66 98 Bi-pap 100 98.8 02/17/18 12:00 100 02/17/18 12:00 87 02/17/18 10:30 102 24 98 Full Face 100 02/17/18 08:52 97 24 97 Full Face 100 02/17/18 08:37 109 02/17/18 08:18 100 02/17/18 08:00 98.2 109 24 131/77 94 Bi-pap 100 98.2 02/17/18 08:00 116 02/17/18 06:56 Bi-pap 02/17/18 06:56 105 26 92 Full Face 100 02/17/18 06:56 93 Bi-pap 02/17/18 05:53 95 128/79 02/17/18 05:13 98 02/17/18 05:00 95 29 99 Full Face 60 02/17/18 04:00 70 02/17/18 04:00 98.1 96 25 128/79 100 Bi-pap 70 98.1 02/17/18 03:14 91 23 100 Full Face 70 02/17/18 01:14 84 20 100 Full Face 70 02/17/18 00:00 80 02/17/18 00:00 98.3 79 27 120/72 99 Bi-pap 80 98.3 02/16/18 23:56 82 Intake and Output 02/16/18 02/17/18 19:00 07:00 Intake Total 650 ml 728.75 ml Output Total 700 ml 225 ml Balance -50 ml 503.75 ml Free Water 50 ml 150 ml IV Total 98.75 ml Tube Feeding 480 ml 480 ml Other 120 ml Output Urine Total 700 ml 225 ml # Bowel Movements 4 Laboratory Tests 02/17/18 04:11: White Blood Count 14.1H, Red Blood Count 4.17L, Hemoglobin 11.3L, Hematocrit 35.6L, Mean Corpuscular Volume 85, Mean Corpuscular Hemoglobin 27.1, Mean Corpuscular Hemoglobin Concent 31.7L, Red Cell Distribution Width 16.1H, Platelet Count 404, Mean Platelet Volume 8.7, Neutrophils (%) (Auto) 75.7H, Lymphocytes (%) (Auto) 15.9L, Monocytes (%) (Auto) 5.5, Eosinophils (%) (Auto) 2.3, Basophils (%) (Auto) 0.6, Sodium Level 135L, Potassium Level 4.3, Chloride Level 102, Carbon Dioxide Level 31, Anion Gap 2L, Blood Urea Nitrogen 11, Creatinine 0.5L, Estimat Glomerular Filtration Rate , Glucose Level 86, Calcium Level 8.6 Height (Feet): 4 Height (Inches): 0.00 Weight (Pounds): 111 Darling Baker MD Feb 17, 2018 23:46
[2018-02-18] VITALS: BP 130/85
[2018-02-18] MEDS: NovoLOG Insulin Flexpen SUBQ SCH ×4 (00:28→18:12)
[2018-02-18] MEDS: LORazepam Inj 2mg/ml 1ml IV PRN ×3 (00:52→20:00)
[2018-02-18 04:00] VITALS: BP 122/70
[2018-02-18] MEDS: dilTIAZem HCl 30mg tab ORAL SCH ×3 (06:11→22:17)
[2018-02-18] MEDS: Meropenem 500 MG in NS 55 ML IVPB SCH ×2 (06:11→18:11)
[2018-02-18 08:00] VITALS: BP 158/70
[2018-02-18] MEDS: Digoxin 0.125mg tab GT SCH (08:46)
[2018-02-18] MEDS: Ascorbic Acid 500mg tab GT SCH (08:46)
[2018-02-18] MEDS: Enoxaparin 30mg Inj SUBQ SCH (08:49)
--- NOTE | 2018-02-18 09:16 | Nephrology Progress Note ---
Assessment/Plan Assessment/Plan 1. Sepsis - Abx per ID mgmt. Stable. Awaiting court hearing decision 2. Scral Decub- Gen Surg 3. Hyponatremia- Na at 135 and stable. Check BMP in am 4. Resp FL- on BiPaP, defer mgmt to Pulm. Under bioethics review. Continues to fail weaning off BiPAP 5. AFib- digoxin + cardizem 6. DVT prophylaxis- lovenox Awaiting poss court decision to convert patient to DNR/I comfort care Subjective Date patient seen: Feb 18, 2018 Time patient seen: 09:11 ROS Limited/Unobtainable: Yes Allergies: Coded Allergies: No Known Allergies (Verified , 03/10/07) Subjective Patient remains on BiPAP. Has failed daily BiPAP weaning trial Objective Last 24 Hour Vital Signs Date Time Temp Pulse Resp B/P (MAP) Pulse Ox O2 Delivery O2 Flow Rate FiO2 02/18/18 08:46 112 02/18/18 08:00 60 02/18/18 08:00 107 38 Bi-pap 90 02/18/18 07:58 105 35 98 Facial 90 02/18/18 07:57 Bi-pap 100 02/18/18 07:56 97 Bi-pap 100 02/18/18 06:11 84 122/70 02/18/18 05:24 84 23 100 Facial 100 02/18/18 04:53 87 02/18/18 04:00 100 02/18/18 04:00 98.5 85 22 122/70 99 Bi-pap 100 98.5 02/18/18 03:30 90 30 95 Full Face 100 02/18/18 00:46 94 39 94 Full Face 100 02/18/18 00:00 100 02/18/18 00:00 98.1 84 33 130/85 99 Bi-pap 100 98.1 02/18/18 00:00 86 02/17/18 23:30 78 16 95 Facial 100 02/17/18 22:28 91 110/70 02/17/18 21:30 80 18 94 Facial 100 02/17/18 20:00 98.1 78 21 110/70 100 Bi-pap 100 98.1 02/17/18 20:00 100 02/17/18 19:37 76 02/17/18 19:30 Bi-pap 02/17/18 19:30 74 38 99 Full Face 100 02/17/18 19:30 99 Bi-pap 02/17/18 16:47 76 22 98 Facial 100 02/17/18 16:00 81 02/17/18 16:00 98.0 74 21 145/79 99 Bi-pap 100 98.0 02/17/18 16:00 100 02/17/18 15:00 81 20 100 Facial 100 02/17/18 13:42 87 138/66 02/17/18 13:00 104 27 99 Facial 100 02/17/18 12:00 98.8 92 25 138/66 98 Bi-pap 100 98.8 02/17/18 12:00 100 02/17/18 12:00 87 02/17/18 10:30 102 24 98 Full Face 100 Intake and Output 02/17/18 02/18/18 19:00 07:00 Intake Total 820 ml 1690 ml Output Total 725 ml 450 ml Balance 95 ml 1240 ml Free Water 200 ml 200 ml IV Total 1010 ml Tube Feeding 440 ml 480 ml Other 180 ml Output Urine Total 725 ml 450 ml Height (Feet): 4 Height (Inches): 0.00 Weight (Pounds): 102 General Appearance: no apparent distress EENT: normal ENT inspection Neck: non-tender Cardiovascular: normal rate Respiratory/Chest: rhonchi - bilaterally Abdomen: non tender, soft Edema: no edema noted Arm (L), no edema noted Arm (R), no edema noted Leg (L), no edema noted Leg (R), no edema noted Pedal (L), no edema noted Pedal (R), no edema noted Generalized Jorge Graf M.D. Feb 18, 2018 09:16
--- NOTE | 2018-02-18 10:43 | Cardiac Electrophysiology PN ---
Assessment/Plan Assessment/Plan 1. Paroxysmal atrial fibrillation. In SR on digoxin 0.125 mg daily and Cardizem 30 tid Keep off anticoagulation. Echocardiogram Nl EF. On SQ Lovenox 30 daily 2. Hypertension. On Cardizem 30 tid 3. Respiratory failure on BiPAP and Abx 4. Diabetes, on insulin. 5. Dementia. 6. Dysphagia, status post PEG placement. 7. Sacral decubitus stage III. FU by Dr. Austin. 8. CVA with aphasia and contractures. DW RN Subjective Subjective On BIPAP. In and out of fib. No events Objective Last 24 Hour Vital Signs Date Time Temp Pulse Resp B/P (MAP) Pulse Ox O2 Delivery O2 Flow Rate FiO2 02/18/18 09:37 103 35 95 Facial 75 02/18/18 08:46 112 02/18/18 08:00 103 02/18/18 08:00 60 02/18/18 08:00 99.3 111 23 158/70 93 Bi-pap 80 99.3 02/18/18 08:00 107 38 Bi-pap 90 02/18/18 07:58 105 35 98 Facial 90 02/18/18 07:57 Bi-pap 100 02/18/18 07:56 97 Bi-pap 100 02/18/18 06:11 84 122/70 02/18/18 05:24 84 23 100 Facial 100 02/18/18 04:53 87 02/18/18 04:00 100 02/18/18 04:00 98.5 85 22 122/70 99 Bi-pap 100 98.5 02/18/18 03:30 90 30 95 Full Face 100 02/18/18 00:46 94 39 94 Full Face 100 02/18/18 00:00 100 02/18/18 00:00 98.1 84 33 130/85 99 Bi-pap 100 98.1 02/18/18 00:00 86 02/17/18 23:30 78 16 95 Facial 100 02/17/18 22:28 91 110/70 02/17/18 21:30 80 18 94 Facial 100 02/17/18 20:00 98.1 78 21 110/70 100 Bi-pap 100 98.1 02/17/18 20:00 100 02/17/18 19:37 76 02/17/18 19:30 Bi-pap 02/17/18 19:30 74 38 99 Full Face 100 02/17/18 19:30 99 Bi-pap 02/17/18 16:47 76 22 98 Facial 100 02/17/18 16:00 81 02/17/18 16:00 98.0 74 21 145/79 99 Bi-pap 100 98.0 02/17/18 16:00 100 02/17/18 15:00 81 20 100 Facial 100 02/17/18 13:42 87 138/66 02/17/18 13:00 104 27 99 Facial 100 02/17/18 12:00 98.8 92 25 138/66 98 Bi-pap 100 98.8 02/17/18 12:00 100 02/17/18 12:00 87 Intake and Output 02/17/18 02/18/18 19:00 07:00 Intake Total 820 ml 1690 ml Output Total 725 ml 450 ml Balance 95 ml 1240 ml Free Water 200 ml 200 ml IV Total 1010 ml Tube Feeding 440 ml 480 ml Other 180 ml Output Urine Total 725 ml 450 ml Objective HEAD AND NECK: No JVD. On BIPAP LUNGS: Coarse rhonchi CARDIOVASCULAR: Tachy S1 and S2 with no murmur. ABDOMEN: Soft and status post G-tube. EXTREMITIES: No pitting edema. She has sacral decubitus. Emmanuel Edgar MD Feb 18, 2018 10:43
[2018-02-18 12:00] VITALS: BP 146/79
--- NOTE | 2018-02-18 14:00 | Infectious Diseases Prog Note ---
Assessment/Plan Problems: (1) HCAP (healthcare-associated pneumonia) Assessment & Plan: complicated with respiratory failure, and evidence of aspiration on CT chest , on meropenem empiric coverage , repeat CXR . pulmonary is following. 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 continue local wound care and dressing changes as per hospital protocol . was evaluated by general surgery (3) Sepsis Assessment & Plan: ruled out, with coag negative staphylococcus most likely contaminant , grew from one set. (4) Acute respiratory failure Assessment & Plan: with hypoxemia , due to the above, now BIPAP dependant , pulmonary is following, monitor CXR and ABG . she may need tracheostomy (5) Low grade fever Assessment & Plan: will repeat stool for C diff and sputum culture , continue tylenol as needed Subjective ROS Limited/Unobtainable: Yes Allergies: Coded Allergies: No Known Allergies (Verified , 03/10/07) Subjective she was quiet, and comfortable in bed , still on BIPAP machine , with less FIO2 of 75 %. still can't be weaned off , has low grade fever , no cough or significant phlegm, had loose bowel movements Objective Vital Signs Last 24 Hour Vital Signs Date Time Temp Pulse Resp B/P (MAP) Pulse Ox O2 Delivery O2 Flow Rate FiO2 02/18/18 13:51 105 146/79 02/18/18 12:47 105 25 92 Facial 75 02/18/18 12:00 99.3 116 36 146/79 89 Bi-pap 80 99.3 02/18/18 12:00 80 02/18/18 12:00 115 02/18/18 11:12 109 31 88 Facial 80 02/18/18 09:37 103 35 95 Facial 75 02/18/18 08:46 112 02/18/18 08:00 103 02/18/18 08:00 60 02/18/18 08:00 99.3 111 23 158/70 93 Bi-pap 80 99.3 02/18/18 08:00 107 38 Bi-pap 90 02/18/18 07:58 105 35 98 Facial 90 02/18/18 07:57 Bi-pap 100 02/18/18 07:56 97 Bi-pap 100 02/18/18 06:11 84 122/70 02/18/18 05:24 84 23 100 Facial 100 02/18/18 04:53 87 02/18/18 04:00 100 02/18/18 04:00 98.5 85 22 122/70 99 Bi-pap 100 98.5 02/18/18 03:30 90 30 95 Full Face 100 02/18/18 00:46 94 39 94 Full Face 100 02/18/18 00:00 100 02/18/18 00:00 98.1 84 33 130/85 99 Bi-pap 100 98.1 02/18/18 00:00 86 02/17/18 23:30 78 16 95 Facial 100 02/17/18 22:28 91 110/70 02/17/18 21:30 80 18 94 Facial 100 02/17/18 20:00 98.1 78 21 110/70 100 Bi-pap 100 98.1 02/17/18 20:00 100 02/17/18 19:37 76 02/17/18 19:30 Bi-pap 02/17/18 19:30 74 38 99 Full Face 100 02/17/18 19:30 99 Bi-pap 02/17/18 16:47 76 22 98 Facial 100 02/17/18 16:00 81 02/17/18 16:00 98.0 74 21 145/79 99 Bi-pap 100 98.0 02/17/18 16:00 100 02/17/18 15:00 81 20 100 Facial 100 Height (Feet): 4 Height (Inches): 0.00 Weight (Pounds): 102 General Appearance: WD/WN, no acute distress, cachetic HEENT: normocephalic, atraumatic, anicteric, mucous membranes moist, PERRL, pharynx normal, supple, no JVD, other - dry cheek Respiratory/Chest: chest wall non-tender, normal breath sounds, no respiratory distress, no accessory muscle use, decreased breath sounds, expiratory wheezing Breasts: no masses Cardiovascular: normal peripheral pulses, normal rate, regular rhythm, no gallop/murmur, no JVD Abdomen: normal bowel sounds, soft, non tender, no organomegaly, non distended , no mass Extremities: no cyanosis, no clubbing Skin: no rash, no lesions, ulcers - on the sacrum and the hip Neurologic/Psychiatric: alert, unresponsiveness Current Medications Medications (Trade) Dose Ordered Sig/Rosetta Route PRN Reason Start Time Stop Time Status Last Admin Dose Admin Acetaminophen (Tylenol) 650 mg Q4H PRN GT Mild Pain/Temp > 100.5 02/09/18 16:00 03/10/18 15:59 Ascorbic Acid (Vitamin C) 500 mg DAILY GT 02/10/18 09:00 03/07/18 08:59 02/18/18 08:46 Clonidine HCl (Catapres Tab) 0.1 mg Q8H PRN GT SBP >160 02/09/18 17:00 03/09/18 16:59 02/09/18 17:31 Dextrose 1,000 ml @ 75 mls/hr [id number] IV 02/11/18 17:30 03/13/18 17:29 02/18/18 08:46 Dextrose (Dextrose 50%) 25 ml STAT PRN IV Hypoglycemia 02/09/18 16:00 03/11/18 15:59 Dextrose (Dextrose 50%) 50 ml STAT PRN IV Hypoglycemia 02/09/18 16:00 03/11/18 15:59 Digoxin (Lanoxin) 0.125 mg DAILY GT 02/10/18 09:00 03/07/18 08:59 02/18/18 08:46 Diltiazem HCl (Cardizem) 30 mg EVERY 8 HOURS ORAL 02/10/18 22:00 03/12/18 21:59 02/18/18 13:51 Enoxaparin Sodium (Lovenox) 30 mg Q24H SUBQ 02/10/18 09:00 03/07/18 08:59 02/18/18 08:49 Famotidine (Pepcid) 20 mg DAILY GT 02/10/18 09:00 03/10/18 08:59 02/18/18 08:46 Insulin Aspart (NovoLOG) EVERY 6 HOURS SUBQ 02/09/18 18:00 03/07/18 06:29 02/18/18 12:01 Lorazepam (Ativan 2mg/ml 1ml) 1 mg Q4H PRN IV For Anxiety 02/13/18 10:30 02/20/18 10:29 02/18/18 00:52 Meropenem 500 mg/ Sodium Chloride 55 ml @ 110 mls/hr Q12H IVPB 02/13/18 18:30 02/22/18 18:29 02/18/18 06:11 Dom Hoffman M.D. Feb 18, 2018 14:00
[2018-02-18 16:00] VITALS: BP 138/76
--- NOTE | 2018-02-18 16:30 | Pulmonology Progress Note ---
Assessment/Plan Assessment/Plan IMPRESSION: 1. Bilateral pneumonia. 2. Respiratory failure on BiPAP 3. Hypertension. 4. Diabetes mellitus. 5. Dehydration, hypernatremia 6. Tardive dyskinesia DISCUSSION: 1. Continue BiPAP, not able to tolerate weaning 2. CXR with retrocardiac atelectasis/consolidation/aspiration. 3. Antibiotics. 4. Await bioethics decision per conservator; rec comfort care and DNR 5. DVT and GI prophylaxes. Prognosis poor Subjective ROS Limited/Unobtainable: Yes Allergies: Coded Allergies: No Known Allergies (Verified , 03/10/07) Objective Last 24 Hour Vital Signs Date Time Temp Pulse Resp B/P (MAP) Pulse Ox O2 Delivery O2 Flow Rate FiO2 02/18/18 16:00 75 02/18/18 16:00 98.2 114 30 138/76 89 Bi-pap 75 98.2 02/18/18 15:44 112 46 88 Facial 70 02/18/18 15:09 99.3 02/18/18 13:51 105 146/79 02/18/18 12:47 105 25 92 Facial 75 02/18/18 12:00 99.3 116 36 146/79 89 Bi-pap 80 99.3 02/18/18 12:00 80 02/18/18 12:00 115 02/18/18 11:12 109 31 88 Facial 80 02/18/18 09:37 103 35 95 Facial 75 02/18/18 08:46 112 02/18/18 08:00 103 02/18/18 08:00 60 02/18/18 08:00 99.3 111 23 158/70 93 Bi-pap 80 99.3 02/18/18 08:00 107 38 Bi-pap 90 02/18/18 07:58 105 35 98 Facial 90 02/18/18 07:57 Bi-pap 100 02/18/18 07:56 97 Bi-pap 100 02/18/18 06:11 84 122/70 02/18/18 05:24 84 23 100 Facial 100 02/18/18 04:53 87 02/18/18 04:00 100 02/18/18 04:00 98.5 85 22 122/70 99 Bi-pap 100 98.5 02/18/18 03:30 90 30 95 Full Face 100 02/18/18 00:46 94 39 94 Full Face 100 02/18/18 00:00 100 02/18/18 00:00 98.1 84 33 130/85 99 Bi-pap 100 98.1 02/18/18 00:00 86 02/17/18 23:30 78 16 95 Facial 100 02/17/18 22:28 91 110/70 02/17/18 21:30 80 18 94 Facial 100 02/17/18 20:00 98.1 78 21 110/70 100 Bi-pap 100 98.1 02/17/18 20:00 100 02/17/18 19:37 76 02/17/18 19:30 Bi-pap 02/17/18 19:30 74 38 99 Full Face 100 02/17/18 19:30 99 Bi-pap 02/17/18 16:47 76 22 98 Facial 100 Intake and Output 02/17/18 02/18/18 19:00 07:00 Intake Total 820 ml 1690 ml Output Total 725 ml 450 ml Balance 95 ml 1240 ml Free Water 200 ml 200 ml IV Total 1010 ml Tube Feeding 440 ml 480 ml Other 180 ml Output Urine Total 725 ml 450 ml Objective on BiPAP, tardive dyskinesia General Appearance: no acute distress, cachetic HEENT: normocephalic Respiratory/Chest: lungs clear Cardiovascular: normal rate Current Medications Medications (Trade) Dose Ordered Sig/Rosetta Route PRN Reason Start Time Stop Time Status Last Admin Dose Admin Acetaminophen (Tylenol) 650 mg Q4H PRN GT Mild Pain/Temp > 100.5 02/09/18 16:00 03/10/18 15:59 02/18/18 14:48 Ascorbic Acid (Vitamin C) 500 mg DAILY GT 02/10/18 09:00 03/07/18 08:59 02/18/18 08:46 Clonidine HCl (Catapres Tab) 0.1 mg Q8H PRN GT SBP >160 02/09/18 17:00 03/09/18 16:59 02/09/18 17:31 Dextrose 1,000 ml @ 75 mls/hr [id number] IV 02/11/18 17:30 03/13/18 17:29 02/18/18 08:46 Dextrose (Dextrose 50%) 25 ml STAT PRN IV Hypoglycemia 02/09/18 16:00 03/11/18 15:59 Dextrose (Dextrose 50%) 50 ml STAT PRN IV Hypoglycemia 02/09/18 16:00 03/11/18 15:59 Digoxin (Lanoxin) 0.125 mg DAILY GT 02/10/18 09:00 03/07/18 08:59 02/18/18 08:46 Diltiazem HCl (Cardizem) 30 mg EVERY 8 HOURS ORAL 02/10/18 22:00 03/12/18 21:59 02/18/18 13:51 Enoxaparin Sodium (Lovenox) 30 mg Q24H SUBQ 02/10/18 09:00 03/07/18 08:59 02/18/18 08:49 Famotidine (Pepcid) 20 mg DAILY GT 02/10/18 09:00 03/10/18 08:59 02/18/18 08:46 Insulin Aspart (NovoLOG) EVERY 6 HOURS SUBQ 02/09/18 18:00 03/07/18 06:29 02/18/18 12:01 Lorazepam (Ativan 2mg/ml 1ml) 1 mg Q4H PRN IV For Anxiety 02/13/18 10:30 02/20/18 10:29 02/18/18 15:56 Meropenem 500 mg/ Sodium Chloride 55 ml @ 110 mls/hr Q12H IVPB 02/13/18 18:30 02/22/18 18:29 02/18/18 06:11 Rashawn Vang MD Feb 18, 2018 16:30
[2018-02-18 20:00] VITALS: BP 135/71
[2018-02-19] VITALS: BP 134/72
[2018-02-19] MEDS: NovoLOG Insulin Flexpen SUBQ SCH ×4 (00:51→17:50)
[2018-02-19 04:00] VITALS: BP 126/75
[2018-02-19] MEDS: LORazepam Inj 2mg/ml 1ml IV PRN ×2 (04:29→20:22)
[2018-02-19] MEDS: dilTIAZem HCl 30mg tab ORAL SCH ×3 (06:30→20:45)
[2018-02-19] MEDS: Meropenem 500 MG in NS 55 ML IVPB SCH ×2 (06:36→17:50)
[2018-02-19 07:38] LABS: ANION GAP 1 mmol/L (5-15); BLOOD UREA NITROGEN 12 mg/dL (7-18); CALCIUM 8.8 MG/DL (8.5-10.1); CARBON DIOXIDE 32 MMOL/L (21-32); CHLORIDE 98 MMOL/L (98-107); CREATININE 0.5 MG/DL (0.55-1.30); POTASSIUM 4.1 MMOL/L (3.5-5.1); SODIUM 131 MMOL/L (136-145)
[2018-02-19 08:00] VITALS: BP 141/80
--- NOTE | 2018-02-19 08:33 | Nephrology Progress Note ---
Assessment/Plan Assessment/Plan 1. Sepsis - Abx per ID mgmt. 2. Scral Decub- Gen Surg 3. Hyponatremia- Na at 131. DC free water GTube flushes 4. Resp FL- on BiPaP, defer mgmt to Pulm. Under bioethics review. 5. AFib- digoxin + cardizem 6. DVT prophylaxis- lovenox Awaiting poss court decision to convert patient to DNR/I comfort care Subjective Date patient seen: Feb 19, 2018 Time patient seen: 08:31 ROS Limited/Unobtainable: Yes Allergies: Coded Allergies: No Known Allergies (Verified , 03/10/07) Subjective Patient remains on BiPAP failing daily BiPAP weaning trials Objective Last 24 Hour Vital Signs Date Time Temp Pulse Resp B/P (MAP) Pulse Ox O2 Delivery O2 Flow Rate FiO2 02/19/18 08:00 100 02/19/18 08:00 98.4 104 26 141/80 90 Bi-pap 100 98.4 02/19/18 06:57 45 28 92 Facial 100 02/19/18 06:56 93 Bi-pap 100 02/19/18 06:56 Bi-pap 02/19/18 06:30 96 126/75 02/19/18 05:16 105 30 90 Facial 100 02/19/18 04:38 100 02/19/18 04:00 115 02/19/18 04:00 99.6 104 26 126/75 91 Bi-pap 100 99.6 02/19/18 03:55 103 32 93 Facial 100 02/19/18 00:56 101 34 89 Facial 100 02/19/18 00:00 100 02/19/18 00:00 104 02/19/18 00:00 99.2 98 32 134/72 90 Bi-pap 80 99.2 02/18/18 22:42 111 35 94 Facial 80 02/18/18 22:17 98 135/71 02/18/18 21:04 98 26 Facial 100 02/18/18 20:00 100 02/18/18 20:00 108 02/18/18 20:00 98.0 96 29 135/71 94 Bi-pap 80 98.0 02/18/18 19:49 Bi-pap 02/18/18 19:48 Bi-pap 02/18/18 19:29 105 30 89 Facial 100 02/18/18 16:58 99 30 89 Facial 75 02/18/18 16:00 109 02/18/18 16:00 75 02/18/18 16:00 98.2 114 30 138/76 89 Bi-pap 75 98.2 02/18/18 15:44 112 46 88 Facial 70 02/18/18 15:09 99.3 02/18/18 13:51 105 146/79 02/18/18 12:47 105 25 92 Facial 75 02/18/18 12:00 99.3 116 36 146/79 89 Bi-pap 80 99.3 02/18/18 12:00 80 02/18/18 12:00 115 02/18/18 11:12 109 31 88 Facial 80 02/18/18 09:37 103 35 95 Facial 75 02/18/18 08:46 112 Intake and Output 02/18/18 02/19/18 19:00 07:00 Intake Total 1465 ml 1430 ml Output Total 450 ml Balance 1465 ml 980 ml Free Water 150 ml IV Total 920 ml 750 ml Tube Feeding 480 ml 480 ml Other 65 ml 50 ml Output Urine Total 450 ml # Voids 1 # Bowel Movements 1 Laboratory Tests 02/19/18 06:09: Sodium Level 131L, Potassium Level 4.1, Chloride Level 98, Carbon Dioxide Level 32, Anion Gap 1L, Blood Urea Nitrogen 12, Creatinine 0.5L, Estimat Glomerular Filtration Rate , Glucose Level 143H, Calcium Level 8.8 Height (Feet): 4 Height (Inches): 0.00 Weight (Pounds): 100 General Appearance: confused EENT: PERRL/EOMI Neck: normal alignment, supple Cardiovascular: normal rate, regular rhythm Respiratory/Chest: rhonchi - bilaterally Abdomen: non tender, soft Edema: no edema noted Arm (L), no edema noted Arm (R), no edema noted Leg (L), no edema noted Leg (R), no edema noted Pedal (L), no edema noted Pedal (R), no edema noted Generalized Jorge Graf M.D. Feb 19, 2018 08:33
[2018-02-19] MEDS: Ascorbic Acid 500mg tab GT SCH (08:45)
[2018-02-19] MEDS: Digoxin 0.125mg tab GT SCH (08:45)
[2018-02-19] MEDS: Enoxaparin 30mg Inj SUBQ SCH (08:47)
[2018-02-19 08:58] LABS: BASOPHILS % (AUTO) 0.9 % (0.0-2.0); EOSINOPHILS % (AUTO) 1.1 % (0.0-3.0); HEMATOCRIT 38.3 % (37.0-47.0); HEMOGLOBIN 12.2 G/DL (12.0-16.0); MEAN CORPUSCULAR VOLUME 85 FL (80-99); MONOCYTES % (AUTO) 6.7 % (1.0-10.0); NEUTROPHILS % (AUTO) 71.5 % (45.0-75.0); PLATELET COUNT 410 K/UL (150-450); RED BLOOD COUNT 4.49 M/UL (4.20-5.40); RED CELL DISTRIBUTION WIDTH 15.6 % (11.6-14.8); WHITE BLOOD COUNT 12.5 K/UL (4.8-10.8)
[2018-02-19 12:00] VITALS: BP 135/74
--- NOTE | 2018-02-19 13:12 | General Progress Note ---
Assessment/Plan Assessment/Plan Dementia encephalopathy the pt lacks capacity to make decisions haldol prn will fill out the forms Subjective Date patient seen: Feb 19, 2018 Neurologic/Psychiatric: Reports: anxiety Allergies: Coded Allergies: No Known Allergies (Verified , 03/10/07) Subjective the pt is confused lethargic. the pt has severe cognitive impairment. Objective Last 24 Hour Vital Signs Date Time Temp Pulse Resp B/P (MAP) Pulse Ox O2 Delivery O2 Flow Rate FiO2 02/19/18 12:54 113 37 80 Facial 100 02/19/18 12:00 100 02/19/18 10:49 110 41 84 Facial 100 02/19/18 09:24 109 39 83 Facial 100 02/19/18 08:45 104 02/19/18 08:00 100 02/19/18 08:00 101 02/19/18 08:00 98.4 104 26 141/80 90 Bi-pap 100 98.4 02/19/18 06:57 45 28 92 Facial 100 02/19/18 06:56 93 Bi-pap 100 02/19/18 06:56 Bi-pap 02/19/18 06:30 96 126/75 02/19/18 05:16 105 30 90 Facial 100 02/19/18 04:38 100 02/19/18 04:00 115 02/19/18 04:00 99.6 104 26 126/75 91 Bi-pap 100 99.6 02/19/18 03:55 103 32 93 Facial 100 02/19/18 00:56 101 34 89 Facial 100 02/19/18 00:00 100 02/19/18 00:00 104 02/19/18 00:00 99.2 98 32 134/72 90 Bi-pap 80 99.2 02/18/18 22:42 111 35 94 Facial 80 02/18/18 22:17 98 135/71 02/18/18 21:04 98 26 Facial 100 02/18/18 20:00 100 02/18/18 20:00 108 02/18/18 20:00 98.0 96 29 135/71 94 Bi-pap 80 98.0 02/18/18 19:49 Bi-pap 02/18/18 19:48 Bi-pap 02/18/18 19:29 105 30 89 Facial 100 02/18/18 16:58 99 30 89 Facial 75 02/18/18 16:00 109 02/18/18 16:00 75 02/18/18 16:00 98.2 114 30 138/76 89 Bi-pap 75 98.2 02/18/18 15:44 112 46 88 Facial 70 02/18/18 15:09 99.3 02/18/18 13:51 105 146/79 Intake and Output 02/18/18 02/19/18 19:00 07:00 Intake Total 1465 ml 1430 ml Output Total 450 ml Balance 1465 ml 980 ml Free Water 150 ml IV Total 920 ml 750 ml Tube Feeding 480 ml 480 ml Other 65 ml 50 ml Output Urine Total 450 ml # Voids 1 # Bowel Movements 1 Laboratory Tests 02/19/18 06:09: White Blood Count 12.5H, Red Blood Count 4.49, Hemoglobin 12.2, Hematocrit 38.3 , Mean Corpuscular Volume 85, Mean Corpuscular Hemoglobin 27.2, Mean Corpuscular Hemoglobin Concent 31.8L, Red Cell Distribution Width 15.6H, Platelet Count 410, Mean Platelet Volume 8.1, Neutrophils (%) (Auto) 71.5, Lymphocytes (%) (Auto) 20.0, Monocytes (%) (Auto) 6.7, Eosinophils (%) (Auto) 1.1, Basophils (%) (Auto) 0.9, Sodium Level 131L, Potassium Level 4.1, Chloride Level 98, Carbon Dioxide Level 32, Anion Gap 1L, Blood Urea Nitrogen 12, Creatinine 0.5L, Estimat Glomerular Filtration Rate , Glucose Level 143H, Calcium Level 8.8 Height (Feet): 4 Height (Inches): 0.00 Weight (Pounds): 100 General Appearance: no apparent distress, lethargic, confused Darling Baker MD Feb 19, 2018 13:12
--- NOTE | 2018-02-19 13:28 | Pulmonology Progress Note ---
Assessment/Plan Assessment/Plan IMPRESSION: 1. Bilateral pneumonia. 2. Respiratory failure on BiPAP 3. Hypertension. 4. Diabetes mellitus. 5. Dehydration, hypernatremia 6. Tardive dyskinesia DISCUSSION: 1. Continue BiPAP, not able to tolerate weaning 2. CXR with retrocardiac atelectasis/consolidation/aspiration. 3. Antibiotics. 4. Await bioethics decision per conservator; rec comfort care and DNR 5. DVT and GI prophylaxes. Doing worse sat 83% on 100% O2 BiPAP tachycardia prognosis very poor Subjective ROS Limited/Unobtainable: Yes Allergies: Coded Allergies: No Known Allergies (Verified , 03/10/07) Objective Last 24 Hour Vital Signs Date Time Temp Pulse Resp B/P (MAP) Pulse Ox O2 Delivery O2 Flow Rate FiO2 02/19/18 12:54 113 37 80 Facial 100 02/19/18 12:00 100 02/19/18 12:00 98.4 114 135/74 (94) 98.4 02/19/18 10:49 110 41 84 Facial 100 02/19/18 09:24 109 39 83 Facial 100 02/19/18 08:45 104 02/19/18 08:00 100 02/19/18 08:00 101 02/19/18 08:00 98.4 104 26 141/80 90 Bi-pap 100 98.4 02/19/18 06:57 45 28 92 Facial 100 02/19/18 06:56 93 Bi-pap 100 02/19/18 06:56 Bi-pap 02/19/18 06:30 96 126/75 02/19/18 05:16 105 30 90 Facial 100 02/19/18 04:38 100 02/19/18 04:00 115 02/19/18 04:00 99.6 104 26 126/75 91 Bi-pap 100 99.6 02/19/18 03:55 103 32 93 Facial 100 02/19/18 00:56 101 34 89 Facial 100 02/19/18 00:00 100 02/19/18 00:00 104 02/19/18 00:00 99.2 98 32 134/72 90 Bi-pap 80 99.2 02/18/18 22:42 111 35 94 Facial 80 02/18/18 22:17 98 135/71 02/18/18 21:04 98 26 Facial 100 02/18/18 20:00 100 02/18/18 20:00 108 02/18/18 20:00 98.0 96 29 135/71 94 Bi-pap 80 98.0 02/18/18 19:49 Bi-pap 02/18/18 19:48 Bi-pap 02/18/18 19:29 105 30 89 Facial 100 02/18/18 16:58 99 30 89 Facial 75 02/18/18 16:00 109 02/18/18 16:00 75 02/18/18 16:00 98.2 114 30 138/76 89 Bi-pap 75 98.2 02/18/18 15:44 112 46 88 Facial 70 02/18/18 15:09 99.3 02/18/18 13:51 105 146/79 Intake and Output 02/18/18 02/19/18 19:00 07:00 Intake Total 1465 ml 1430 ml Output Total 450 ml Balance 1465 ml 980 ml Free Water 150 ml IV Total 920 ml 750 ml Tube Feeding 480 ml 480 ml Other 65 ml 50 ml Output Urine Total 450 ml # Voids 1 # Bowel Movements 1 Objective on BiPAP, tardive dyskinesia General Appearance: cachetic, other - mod distress HEENT: atraumatic Respiratory/Chest: rhonchi Cardiovascular: tachycardia Laboratory Tests 02/19/18 06:09: White Blood Count 12.5H, Red Blood Count 4.49, Hemoglobin 12.2, Hematocrit 38.3 , Mean Corpuscular Volume 85, Mean Corpuscular Hemoglobin 27.2, Mean Corpuscular Hemoglobin Concent 31.8L, Red Cell Distribution Width 15.6H, Platelet Count 410, Mean Platelet Volume 8.1, Neutrophils (%) (Auto) 71.5, Lymphocytes (%) (Auto) 20.0, Monocytes (%) (Auto) 6.7, Eosinophils (%) (Auto) 1.1, Basophils (%) (Auto) 0.9, Sodium Level 131L, Potassium Level 4.1, Chloride Level 98, Carbon Dioxide Level 32, Anion Gap 1L, Blood Urea Nitrogen 12, Creatinine 0.5L, Estimat Glomerular Filtration Rate , Glucose Level 143H, Calcium Level 8.8 Current Medications Medications (Trade) Dose Ordered Sig/Rosetta Route PRN Reason Start Time Stop Time Status Last Admin Dose Admin Acetaminophen (Tylenol) 650 mg Q4H PRN GT Mild Pain/Temp > 100.5 02/09/18 16:00 03/10/18 15:59 02/18/18 14:48 Ascorbic Acid (Vitamin C) 500 mg DAILY GT 02/10/18 09:00 03/07/18 08:59 02/19/18 08:45 Clonidine HCl (Catapres Tab) 0.1 mg Q8H PRN GT SBP >160 02/09/18 17:00 03/09/18 16:59 02/09/18 17:31 Dextrose 1,000 ml @ 75 mls/hr [id number] IV 02/11/18 17:30 03/13/18 17:29 02/19/18 12:49 Dextrose (Dextrose 50%) 25 ml STAT PRN IV Hypoglycemia 02/09/18 16:00 03/11/18 15:59 Dextrose (Dextrose 50%) 50 ml STAT PRN IV Hypoglycemia 02/09/18 16:00 03/11/18 15:59 Digoxin (Lanoxin) 0.125 mg DAILY GT 02/10/18 09:00 03/07/18 08:59 02/19/18 08:45 Diltiazem HCl (Cardizem) 30 mg EVERY 8 HOURS ORAL 02/10/18 22:00 03/12/18 21:59 02/19/18 06:30 Enoxaparin Sodium (Lovenox) 30 mg Q24H SUBQ 02/10/18 09:00 03/07/18 08:59 02/19/18 08:47 Famotidine (Pepcid) 20 mg DAILY GT 02/10/18 09:00 03/10/18 08:59 02/19/18 08:45 Insulin Aspart (NovoLOG) EVERY 6 HOURS SUBQ 02/09/18 18:00 03/07/18 06:29 02/19/18 12:46 Lorazepam (Ativan 2mg/ml 1ml) 1 mg Q4H PRN IV For Anxiety 02/13/18 10:30 02/20/18 10:29 02/19/18 04:29 Meropenem 500 mg/ Sodium Chloride 55 ml @ 110 mls/hr Q12H IVPB 02/13/18 18:30 02/22/18 18:29 02/19/18 06:36 Rashawn Vang MD Feb 19, 2018 13:28
--- NOTE | 2018-02-19 15:42 | Infectious Diseases Prog Note ---
Assessment/Plan Problems: (1) HCAP (healthcare-associated pneumonia) Assessment & Plan: complicated with respiratory failure, and evidence of aspiration on CT chest , on meropenem empiric coverage , repeat CXR . pulmonary is following. 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 continue local wound care and dressing changes as per hospital protocol . was evaluated by general surgery (3) Sepsis Assessment & Plan: ruled out, with coag negative staphylococcus most likely contaminant , grew from one set. (4) Acute respiratory failure Assessment & Plan: with hypoxemia , due to the above, now BIPAP dependant , pulmonary is following, monitor CXR and ABG . she may need tracheostomy (5) Low grade fever Assessment & Plan: await repeated stool for C diff and sputum culture , continue tylenol as needed Subjective ROS Limited/Unobtainable: Yes Allergies: Coded Allergies: No Known Allergies (Verified , 03/10/07) Subjective she was quiet, and comfortable in bed , still on BIPAP machine , with less FIO2 , still can't be weaned off , has low grade fever , no cough or significant phlegm, had loose bowel movements Objective Vital Signs Last 24 Hour Vital Signs Date Time Temp Pulse Resp B/P (MAP) Pulse Ox O2 Delivery O2 Flow Rate FiO2 02/19/18 15:07 111 38 79 Facial 100 02/19/18 14:53 113 135/74 02/19/18 12:54 113 37 80 Facial 100 02/19/18 12:00 100 02/19/18 12:00 114 02/19/18 12:00 98.4 114 135/74 (94) 98.4 02/19/18 10:49 110 41 84 Facial 100 02/19/18 09:24 109 39 83 Facial 100 02/19/18 08:45 104 02/19/18 08:00 100 02/19/18 08:00 101 02/19/18 08:00 98.4 104 26 141/80 90 Bi-pap 100 98.4 02/19/18 06:57 45 28 92 Facial 100 02/19/18 06:56 93 Bi-pap 100 02/19/18 06:56 Bi-pap 02/19/18 06:30 96 126/75 02/19/18 05:16 105 30 90 Facial 100 02/19/18 04:38 100 02/19/18 04:00 115 02/19/18 04:00 99.6 104 26 126/75 91 Bi-pap 100 99.6 02/19/18 03:55 103 32 93 Facial 100 02/19/18 00:56 101 34 89 Facial 100 02/19/18 00:00 100 02/19/18 00:00 104 02/19/18 00:00 99.2 98 32 134/72 90 Bi-pap 80 99.2 02/18/18 22:42 111 35 94 Facial 80 02/18/18 22:17 98 135/71 02/18/18 21:04 98 26 Facial 100 02/18/18 20:00 100 02/18/18 20:00 108 02/18/18 20:00 98.0 96 29 135/71 94 Bi-pap 80 98.0 02/18/18 19:49 Bi-pap 02/18/18 19:48 Bi-pap 02/18/18 19:29 105 30 89 Facial 100 02/18/18 16:58 99 30 89 Facial 75 02/18/18 16:00 109 02/18/18 16:00 75 02/18/18 16:00 98.2 114 30 138/76 89 Bi-pap 75 98.2 02/18/18 15:44 112 46 88 Facial 70 Height (Feet): 4 Height (Inches): 0.00 Weight (Pounds): 100 General Appearance: WD/WN, no acute distress HEENT: normocephalic, atraumatic, anicteric, mucous membranes moist Respiratory/Chest: chest wall non-tender, no respiratory distress, no accessory muscle use, decreased breath sounds, expiratory wheezing Cardiovascular: normal peripheral pulses, normal rate, regular rhythm, no gallop/murmur, no JVD Abdomen: normal bowel sounds, soft, non tender, no organomegaly, non distended , no mass Extremities: no cyanosis, no clubbing Skin: no rash, no lesions, ulcers Neurologic/Psychiatric: alert, unresponsiveness Laboratory Tests Test 02/19/18 06:09 White Blood Count 12.5 K/UL (4.8-10.8) H Red Blood Count 4.49 M/UL (4.20-5.40) Hemoglobin 12.2 G/DL (12.0-16.0) Hematocrit 38.3 % (37.0-47.0) Mean Corpuscular Volume 85 FL (80-99) Mean Corpuscular Hemoglobin 27.2 PG (27.0-31.0) Mean Corpuscular Hemoglobin Concent 31.8 G/DL (32.0-36.0) L Red Cell Distribution Width 15.6 % (11.6-14.8) H Platelet Count 410 K/UL (150-450) Mean Platelet Volume 8.1 FL (6.5-10.1) Neutrophils (%) (Auto) 71.5 % (45.0-75.0) Lymphocytes (%) (Auto) 20.0 % (20.0-45.0) Monocytes (%) (Auto) 6.7 % (1.0-10.0) Eosinophils (%) (Auto) 1.1 % (0.0-3.0) Basophils (%) (Auto) 0.9 % (0.0-2.0) Sodium Level 131 MMOL/L (136-145) L Potassium Level 4.1 MMOL/L (3.5-5.1) Chloride Level 98 MMOL/L (98-107) Carbon Dioxide Level 32 MMOL/L (21-32) Anion Gap 1 mmol/L (5-15) L Blood Urea Nitrogen 12 mg/dL (7-18) Creatinine 0.5 MG/DL (0.55-1.30) L Estimat Glomerular Filtration Rate mL/min (>60) Glucose Level 143 MG/DL (74-106) H Calcium Level 8.8 MG/DL (8.5-10.1) Current Medications Medications (Trade) Dose Ordered Sig/Rosetta Route PRN Reason Start Time Stop Time Status Last Admin Dose Admin Acetaminophen (Tylenol) 650 mg Q4H PRN GT Mild Pain/Temp > 100.5 02/09/18 16:00 03/10/18 15:59 02/18/18 14:48 Ascorbic Acid (Vitamin C) 500 mg DAILY GT 02/10/18 09:00 03/07/18 08:59 02/19/18 08:45 Clonidine HCl (Catapres Tab) 0.1 mg Q8H PRN GT SBP >160 02/09/18 17:00 03/09/18 16:59 02/09/18 17:31 Dextrose 1,000 ml @ 75 mls/hr [id number] IV 02/11/18 17:30 03/13/18 17:29 02/19/18 12:49 Dextrose (Dextrose 50%) 25 ml STAT PRN IV Hypoglycemia 02/09/18 16:00 03/11/18 15:59 Dextrose (Dextrose 50%) 50 ml STAT PRN IV Hypoglycemia 02/09/18 16:00 03/11/18 15:59 Digoxin (Lanoxin) 0.125 mg DAILY GT 02/10/18 09:00 03/07/18 08:59 02/19/18 08:45 Diltiazem HCl (Cardizem) 30 mg EVERY 8 HOURS ORAL 02/10/18 22:00 03/12/18 21:59 02/19/18 14:53 Enoxaparin Sodium (Lovenox) 30 mg Q24H SUBQ 02/10/18 09:00 03/07/18 08:59 02/19/18 08:47 Famotidine (Pepcid) 20 mg DAILY GT 02/10/18 09:00 03/10/18 08:59 02/19/18 08:45 Insulin Aspart (NovoLOG) EVERY 6 HOURS SUBQ 02/09/18 18:00 03/07/18 06:29 02/19/18 12:46 Lorazepam (Ativan 2mg/ml 1ml) 1 mg Q4H PRN IV For Anxiety 02/13/18 10:30 02/20/18 10:29 02/19/18 04:29 Meropenem 500 mg/ Sodium Chloride 55 ml @ 110 mls/hr Q12H IVPB 02/13/18 18:30 02/22/18 18:29 02/19/18 06:36 Dom Hoffman M.D. Feb 19, 2018 15:42
--- NOTE | 2018-02-19 15:42 | Cardiac Electrophysiology PN ---
Assessment/Plan Assessment/Plan 1. Paroxysmal atrial fibrillation. In SR on digoxin 0.125 mg daily and Cardizem 30 tid Keep off anticoagulation. Echo Nl EF. On SQ Lovenox 30 daily 2. Hypertension. On Cardizem 30 tid 3. Respiratory failure on BiPAP and Abx 4. Diabetes, on insulin. 5. Dementia. 6. Dysphagia, status post PEG placement. 7. Sacral decubitus stage III. FU by Dr. Austin. 8. CVA with aphasia and contractures. LOLITA RN Subjective Subjective On BIPAP. In and out of fib. No events. Awaiting bioethics for PEG placement Objective Last 24 Hour Vital Signs Date Time Temp Pulse Resp B/P (MAP) Pulse Ox O2 Delivery O2 Flow Rate FiO2 02/19/18 15:07 111 38 79 Facial 100 02/19/18 14:53 113 135/74 02/19/18 12:54 113 37 80 Facial 100 02/19/18 12:00 100 02/19/18 12:00 114 02/19/18 12:00 98.4 114 135/74 (94) 98.4 02/19/18 10:49 110 41 84 Facial 100 02/19/18 09:24 109 39 83 Facial 100 02/19/18 08:45 104 02/19/18 08:00 100 02/19/18 08:00 101 02/19/18 08:00 98.4 104 26 141/80 90 Bi-pap 100 98.4 02/19/18 06:57 45 28 92 Facial 100 02/19/18 06:56 93 Bi-pap 100 02/19/18 06:56 Bi-pap 02/19/18 06:30 96 126/75 02/19/18 05:16 105 30 90 Facial 100 02/19/18 04:38 100 02/19/18 04:00 115 02/19/18 04:00 99.6 104 26 126/75 91 Bi-pap 100 99.6 02/19/18 03:55 103 32 93 Facial 100 02/19/18 00:56 101 34 89 Facial 100 02/19/18 00:00 100 02/19/18 00:00 104 02/19/18 00:00 99.2 98 32 134/72 90 Bi-pap 80 99.2 02/18/18 22:42 111 35 94 Facial 80 02/18/18 22:17 98 135/71 02/18/18 21:04 98 26 Facial 100 02/18/18 20:00 100 02/18/18 20:00 108 02/18/18 20:00 98.0 96 29 135/71 94 Bi-pap 80 98.0 02/18/18 19:49 Bi-pap 02/18/18 19:48 Bi-pap 02/18/18 19:29 105 30 89 Facial 100 02/18/18 16:58 99 30 89 Facial 75 02/18/18 16:00 109 02/18/18 16:00 75 02/18/18 16:00 98.2 114 30 138/76 89 Bi-pap 75 98.2 02/18/18 15:44 112 46 88 Facial 70 Intake and Output 02/18/18 02/19/18 19:00 07:00 Intake Total 1465 ml 1430 ml Output Total 450 ml Balance 1465 ml 980 ml Free Water 150 ml IV Total 920 ml 750 ml Tube Feeding 480 ml 480 ml Other 65 ml 50 ml Output Urine Total 450 ml # Voids 1 # Bowel Movements 1 Laboratory Tests Test 02/19/18 06:09 White Blood Count 12.5 K/UL (4.8-10.8) H Red Blood Count 4.49 M/UL (4.20-5.40) Hemoglobin 12.2 G/DL (12.0-16.0) Hematocrit 38.3 % (37.0-47.0) Mean Corpuscular Volume 85 FL (80-99) Mean Corpuscular Hemoglobin 27.2 PG (27.0-31.0) Mean Corpuscular Hemoglobin Concent 31.8 G/DL (32.0-36.0) L Red Cell Distribution Width 15.6 % (11.6-14.8) H Platelet Count 410 K/UL (150-450) Mean Platelet Volume 8.1 FL (6.5-10.1) Neutrophils (%) (Auto) 71.5 % (45.0-75.0) Lymphocytes (%) (Auto) 20.0 % (20.0-45.0) Monocytes (%) (Auto) 6.7 % (1.0-10.0) Eosinophils (%) (Auto) 1.1 % (0.0-3.0) Basophils (%) (Auto) 0.9 % (0.0-2.0) Sodium Level 131 MMOL/L (136-145) L Potassium Level 4.1 MMOL/L (3.5-5.1) Chloride Level 98 MMOL/L (98-107) Carbon Dioxide Level 32 MMOL/L (21-32) Anion Gap 1 mmol/L (5-15) L Blood Urea Nitrogen 12 mg/dL (7-18) Creatinine 0.5 MG/DL (0.55-1.30) L Estimat Glomerular Filtration Rate mL/min (>60) Glucose Level 143 MG/DL (74-106) H Calcium Level 8.8 MG/DL (8.5-10.1) Objective HEAD AND NECK: No JVD. On BIPAP LUNGS: Coarse rhonchi CARDIOVASCULAR: Tachy S1 and S2 with no murmur. ABDOMEN: Soft and status post G-tube. EXTREMITIES: No pitting edema. She has sacral decubitus. Emmanuel Edgar MD Feb 19, 2018 15:42
[2018-02-19 16:00] VITALS: BP 146/81
[2018-02-19 20:00] VITALS: BP 142/74
[2018-02-20] VITALS: BP 148/76
[2018-02-20] MEDS: NovoLOG Insulin Flexpen SUBQ SCH ×4 (00:33→17:49)
[2018-02-20 04:00] VITALS: BP 154/87
[2018-02-20 04:50] LABS: BASOPHILS % (AUTO) 0.9 % (0.0-2.0); EOSINOPHILS % (AUTO) 1.2 % (0.0-3.0); HEMATOCRIT 33.9 % (37.0-47.0); HEMOGLOBIN 11.2 G/DL (12.0-16.0); LYMPHOCYTES % (AUTO) 20.7 % (20.0-45.0); MEAN CORPUSCULAR VOLUME 84 FL (80-99); MONOCYTES % (AUTO) 4.7 % (1.0-10.0); NEUTROPHILS % (AUTO) 72.5 % (45.0-75.0); PLATELET COUNT 444 K/UL (150-450); RED BLOOD COUNT 4.04 M/UL (4.20-5.40); RED CELL DISTRIBUTION WIDTH 15.7 % (11.6-14.8); WHITE BLOOD COUNT 15.9 K/UL (4.8-10.8)
[2018-02-20 05:20] LABS: ANION GAP 3 mmol/L (5-15); BLOOD UREA NITROGEN 15 mg/dL (7-18); CALCIUM 8.8 MG/DL (8.5-10.1); CARBON DIOXIDE 31 MMOL/L (21-32); CHLORIDE 98 MMOL/L (98-107); CREATININE 0.5 MG/DL (0.55-1.30); POTASSIUM 4.6 MMOL/L (3.5-5.1); SODIUM 132 MMOL/L (136-145)
[2018-02-20] MEDS: dilTIAZem HCl 30mg tab ORAL SCH ×3 (06:17→21:53)
[2018-02-20] MEDS: Meropenem 500 MG in NS 55 ML IVPB SCH (06:17)
[2018-02-20 08:00] VITALS: BP 124/61
[2018-02-20] MEDS: Digoxin 0.125mg tab GT SCH (08:52)
[2018-02-20] MEDS: Ascorbic Acid 500mg tab GT SCH (08:52)
[2018-02-20] MEDS: Enoxaparin 30mg Inj SUBQ SCH (08:53)
--- NOTE | 2018-02-20 08:54 | Nephrology Progress Note ---
Assessment/Plan Assessment/Plan 1. Sepsis - Abx per ID mgmt. Stable 2. Scral Decub- Gen Surg 3. Hyponatremia- Na at 132. Stable 4. Resp FL- on BiPaP, defer mgmt to Pulm. Awaiting court decision on DNR/I 5. AFib- digoxin + cardizem 6. DVT prophylaxis- lovenox Awaiting poss court decision to convert patient to DNR/I comfort care Subjective Date patient seen: Feb 20, 2018 Time patient seen: 08:52 ROS Limited/Unobtainable: Yes Allergies: Coded Allergies: No Known Allergies (Verified , 03/10/07) Subjective Patient remains on BiPAP.Attempt weaning trial today Objective Last 24 Hour Vital Signs Date Time Temp Pulse Resp B/P (MAP) Pulse Ox O2 Delivery O2 Flow Rate FiO2 02/20/18 08:42 90 27 100 Facial 75 02/20/18 08:00 96.8 97 23 124/61 (82) 100 96.8 02/20/18 07:53 90 100 85 02/20/18 06:47 100 Bi-pap 100 02/20/18 06:47 Bi-pap 100 02/20/18 06:47 90 27 100 Facial 100 02/20/18 06:17 93 148/76 02/20/18 05:38 101 02/20/18 05:20 93 31 100 Facial 100 02/20/18 04:00 100 02/20/18 04:00 98.7 106 28 154/87 (109) 97 98.7 02/20/18 04:00 89 02/20/18 04:00 Bi-pap 02/20/18 03:22 100 34 100 Facial 100 02/20/18 01:01 117 36 97 Facial 100 02/20/18 00:00 Bi-pap 02/20/18 00:00 100 02/20/18 00:00 98.8 113 30 148/76 (100) 97 98.8 02/20/18 00:00 117 02/19/18 23:28 111 40 90 Facial 100 02/19/18 20:45 118 146/81 02/19/18 20:41 118 42 91 Facial 100 02/19/18 20:00 98.6 141 35 142/74 (96) 89 98.6 02/19/18 20:00 100 02/19/18 20:00 Bi-pap 02/19/18 20:00 115 02/19/18 19:30 Bi-pap 100 02/19/18 19:30 90 Bi-pap 100 02/19/18 19:26 108 38 90 Facial 100 02/19/18 17:08 106 42 81 Facial 100 02/19/18 16:00 116 02/19/18 16:00 98.4 111 30 146/81 (102) 80 98.4 02/19/18 16:00 100 02/19/18 16:00 Bi-pap 100.0 02/19/18 15:07 111 38 79 Facial 100 02/19/18 14:53 113 135/74 02/19/18 12:54 113 37 80 Facial 100 02/19/18 12:00 100 02/19/18 12:00 114 02/19/18 12:00 98.4 114 135/74 (94) 98.4 02/19/18 10:49 110 41 84 Facial 100 02/19/18 09:24 109 39 83 Facial 100 Intake and Output 02/19/18 02/20/18 19:00 07:00 Intake Total 1660 ml 1980 ml Output Total 500 ml 550 ml Balance 1160 ml 1430 ml Free Water 300 ml 200 ml IV Total 880 ml 1300 ml Tube Feeding 480 ml 480 ml Output Urine Total 500 ml 550 ml # Bowel Movements 1 Laboratory Tests 02/20/18 03:26: White Blood Count 15.9H, Red Blood Count 4.04L, Hemoglobin 11.2L, Hematocrit 33.9L, Mean Corpuscular Volume 84, Mean Corpuscular Hemoglobin 27.8, Mean Corpuscular Hemoglobin Concent 33.1, Red Cell Distribution Width 15.7H, Platelet Count 444, Mean Platelet Volume 8.0, Neutrophils (%) (Auto) 72.5, Lymphocytes (%) (Auto) 20.7, Monocytes (%) (Auto) 4.7, Eosinophils (%) (Auto) 1.2, Basophils (%) (Auto) 0.9, Sodium Level 132L, Potassium Level 4.6, Chloride Level 98, Carbon Dioxide Level 31, Anion Gap 3L, Blood Urea Nitrogen 15, Creatinine 0.5L, Estimat Glomerular Filtration Rate , Glucose Level 139H, Calcium Level 8.8 Height (Feet): 4 Height (Inches): 0.00 Weight (Pounds): 101 General Appearance: no apparent distress EENT: normal ENT inspection Neck: normal alignment, supple Cardiovascular: normal rate, regular rhythm Respiratory/Chest: rhonchi - bilaterally Abdomen: non tender, soft Edema: no edema noted Arm (L), no edema noted Arm (R), no edema noted Leg (L), no edema noted Leg (R), no edema noted Pedal (L), no edema noted Pedal (R), no edema noted Generalized Jorge Graf M.D. Feb 20, 2018 08:54
[2018-02-20] MEDS ORDERED: Tubing IV Secondary IV ONE (09:30)
[2018-02-20] MEDS ORDERED: 1/2 NS 1000ml IV ONE (09:30)
[2018-02-20] MEDS ORDERED: Sterile Water Irrig 1000ml IRRIG ONE (09:30)
[2018-02-20] MEDS ORDERED: NS 275ml ONE (09:30)
[2018-02-20] MEDS ORDERED: NS Irrig 1000ml ONE (09:30)
[2018-02-20 12:00] VITALS: BP 149/69
--- NOTE | 2018-02-20 14:43 | Cardiac Electrophysiology PN ---
Assessment/Plan Assessment/Plan 1. Paroxysmal atrial fibrillation. In SR on digoxin 0.125 mg daily and Cardizem 30 tid Off anticoagulation. Echo Nl EF. 2. Hypertension. On Cardizem 30 tid 3. Respiratory failure off BiPAP and on Abx 4. Diabetes, on insulin. 5. Dementia. 6. Dysphagia, status post PEG placement. 7. Sacral decubitus stage III. FU by Dr. Austin. 8. CVA with aphasia and contractures. LOLITA RN Subjective Subjective Off BIPAP today. In SR.. Awaiting bioethics for PEG placement Objective Last 24 Hour Vital Signs Date Time Temp Pulse Resp B/P (MAP) Pulse Ox O2 Delivery O2 Flow Rate FiO2 02/20/18 14:14 96 146/66 02/20/18 12:51 86 26 93 55 02/20/18 12:00 65 02/20/18 12:00 97.4 99 25 149/69 (95) 100 97.4 02/20/18 12:00 Bi-pap 02/20/18 10:42 87 23 100 Facial 65 02/20/18 08:52 92 02/20/18 08:42 90 27 100 Facial 75 02/20/18 08:17 101 02/20/18 08:00 96 02/20/18 08:00 85 02/20/18 08:00 96.8 97 23 124/61 (82) 100 96.8 02/20/18 08:00 Bi-pap 02/20/18 07:53 90 100 85 02/20/18 06:47 100 Bi-pap 100 02/20/18 06:47 Bi-pap 100 02/20/18 06:47 90 27 100 Facial 100 02/20/18 06:17 93 148/76 02/20/18 05:38 101 02/20/18 05:20 93 31 100 Facial 100 02/20/18 04:00 100 02/20/18 04:00 98.7 106 28 154/87 (109) 97 98.7 02/20/18 04:00 89 02/20/18 04:00 Bi-pap 02/20/18 03:22 100 34 100 Facial 100 02/20/18 01:01 117 36 97 Facial 100 02/20/18 00:00 Bi-pap 02/20/18 00:00 100 02/20/18 00:00 98.8 113 30 148/76 (100) 97 98.8 02/20/18 00:00 117 02/19/18 23:28 111 40 90 Facial 100 02/19/18 20:45 118 146/81 02/19/18 20:41 118 42 91 Facial 100 02/19/18 20:00 98.6 141 35 142/74 (96) 89 98.6 02/19/18 20:00 100 02/19/18 20:00 Bi-pap 02/19/18 20:00 115 02/19/18 19:30 Bi-pap 100 02/19/18 19:30 90 Bi-pap 100 02/19/18 19:26 108 38 90 Facial 100 02/19/18 17:08 106 42 81 Facial 100 02/19/18 16:00 116 02/19/18 16:00 98.4 111 30 146/81 (102) 80 98.4 02/19/18 16:00 100 02/19/18 16:00 Bi-pap 100.0 02/19/18 15:07 111 38 79 Facial 100 02/19/18 14:53 113 135/74 Intake and Output 02/19/18 02/20/18 19:00 07:00 Intake Total 1660 ml 2020 ml Output Total 500 ml 550 ml Balance 1160 ml 1470 ml Free Water 300 ml 200 ml IV Total 880 ml 1300 ml Tube Feeding 480 ml 520 ml Output Urine Total 500 ml 550 ml # Bowel Movements 1 Laboratory Tests Test 02/20/18 03:26 White Blood Count 15.9 K/UL (4.8-10.8) H Red Blood Count 4.04 M/UL (4.20-5.40) L Hemoglobin 11.2 G/DL (12.0-16.0) L Hematocrit 33.9 % (37.0-47.0) L Mean Corpuscular Volume 84 FL (80-99) Mean Corpuscular Hemoglobin 27.8 PG (27.0-31.0) Mean Corpuscular Hemoglobin Concent 33.1 G/DL (32.0-36.0) Red Cell Distribution Width 15.7 % (11.6-14.8) H Platelet Count 444 K/UL (150-450) Mean Platelet Volume 8.0 FL (6.5-10.1) Neutrophils (%) (Auto) 72.5 % (45.0-75.0) Lymphocytes (%) (Auto) 20.7 % (20.0-45.0) Monocytes (%) (Auto) 4.7 % (1.0-10.0) Eosinophils (%) (Auto) 1.2 % (0.0-3.0) Basophils (%) (Auto) 0.9 % (0.0-2.0) Sodium Level 132 MMOL/L (136-145) L Potassium Level 4.6 MMOL/L (3.5-5.1) Chloride Level 98 MMOL/L (98-107) Carbon Dioxide Level 31 MMOL/L (21-32) Anion Gap 3 mmol/L (5-15) L Blood Urea Nitrogen 15 mg/dL (7-18) Creatinine 0.5 MG/DL (0.55-1.30) L Estimat Glomerular Filtration Rate mL/min (>60) Glucose Level 139 MG/DL (74-106) H Calcium Level 8.8 MG/DL (8.5-10.1) Microbiology Date/Time Source Procedure Growth Status 02/18/18 20:30 Sputum Expectorated Gram Stain - Final Resulted 02/18/18 20:30 Sputum Expectorated Sputum Culture - Preliminary NORMAL UPPER RESPIRATORY LAITH PRESENT Resulted Objective HEAD AND NECK: No JVD. On Oxygen mask LUNGS: Coarse rhonchi CARDIOVASCULAR: Tachy S1 and S2 with no murmur. ABDOMEN: Soft and status post G-tube. EXTREMITIES: No pitting edema. She has sacral decubitus. Emmanuel Edgar MD Feb 20, 2018 14:43
--- NOTE | 2018-02-20 15:35 | Infectious Diseases Prog Note ---
Assessment/Plan Problems: (1) HCAP (healthcare-associated pneumonia) Assessment & Plan: complicated with respiratory failure, and evidence of aspiration on CT chest , on meropenem empiric coverage , repeat CXR . pulmonary is following. 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 continue local wound care and dressing changes as per hospital protocol . was evaluated by general surgery (3) Sepsis Assessment & Plan: ruled out, with coag negative staphylococcus most likely contaminant , grew from one set. (4) Acute respiratory failure Assessment & Plan: with hypoxemia , due to the above, now BIPAP dependant , pulmonary is following, monitor CXR and ABG . she may need tracheostomy (5) Low grade fever Assessment & Plan: resolved , repeated sputum culture showed normal anjel , continue tylenol as needed Subjective ROS Limited/Unobtainable: Yes Allergies: Coded Allergies: No Known Allergies (Verified , 03/10/07) Subjective she was quiet, comfortable lyin in bed , still on BIPAP machine , with less FIO2 , still can't be weaned off , no fever or chills , no cough or significant phlegm. Objective Vital Signs Last 24 Hour Vital Signs Date Time Temp Pulse Resp B/P (MAP) Pulse Ox O2 Delivery O2 Flow Rate FiO2 02/20/18 14:14 96 146/66 02/20/18 12:51 86 26 93 55 02/20/18 12:00 98 02/20/18 12:00 65 02/20/18 12:00 97.4 99 25 149/69 (95) 100 97.4 02/20/18 12:00 Bi-pap 02/20/18 10:42 87 23 100 Facial 65 02/20/18 08:52 92 02/20/18 08:42 90 27 100 Facial 75 02/20/18 08:17 101 02/20/18 08:00 96 02/20/18 08:00 85 02/20/18 08:00 96.8 97 23 124/61 (82) 100 96.8 02/20/18 08:00 Bi-pap 02/20/18 07:53 90 100 85 02/20/18 06:47 100 Bi-pap 100 7/7/18 06:47 Bi-pap 100 02/20/18 06:47 90 27 100 Facial 100 02/20/18 06:17 93 148/76 02/20/18 05:38 101 02/20/18 05:20 93 31 100 Facial 100 02/20/18 04:00 100 02/20/18 04:00 98.7 106 28 154/87 (109) 97 98.7 02/20/18 04:00 89 02/20/18 04:00 Bi-pap 02/20/18 03:22 100 34 100 Facial 100 02/20/18 01:01 117 36 97 Facial 100 02/20/18 00:00 Bi-pap 02/20/18 00:00 100 02/20/18 00:00 98.8 113 30 148/76 (100) 97 98.8 02/20/18 00:00 117 02/19/18 23:28 111 40 90 Facial 100 02/19/18 20:45 118 146/81 02/19/18 20:41 118 42 91 Facial 100 02/19/18 20:00 98.6 141 35 142/74 (96) 89 98.6 02/19/18 20:00 100 02/19/18 20:00 Bi-pap 02/19/18 20:00 115 02/19/18 19:30 Bi-pap 100 02/19/18 19:30 90 Bi-pap 100 02/19/18 19:26 108 38 90 Facial 100 02/19/18 17:08 106 42 81 Facial 100 02/19/18 16:00 116 02/19/18 16:00 98.4 111 30 146/81 (102) 80 98.4 02/19/18 16:00 100 02/19/18 16:00 Bi-pap 100.0 Height (Feet): 4 Height (Inches): 0.00 Weight (Pounds): 101 General Appearance: WD/WN, no acute distress HEENT: normocephalic, atraumatic, anicteric, mucous membranes moist, PERRL Respiratory/Chest: chest wall non-tender, no respiratory distress, no accessory muscle use, decreased breath sounds, expiratory wheezing Cardiovascular: normal peripheral pulses, normal rate, regular rhythm, no gallop/murmur, no JVD Abdomen: normal bowel sounds, soft, non tender, no organomegaly, non distended , no mass, no scars Extremities: no cyanosis, no clubbing Skin: no rash, no lesions, ulcers - sacrum and hip Neurologic/Psychiatric: alert, unresponsiveness Lymphatic: no neck adenopathy, no groin adenopathy Microbiology Date/Time Source Procedure Growth Status 02/18/18 20:30 Sputum Expectorated Gram Stain - Final Resulted 02/18/18 20:30 Sputum Expectorated Sputum Culture - Preliminary NORMAL UPPER RESPIRATORY ANJEL PRESENT Resulted Laboratory Tests Test 02/20/18 03:26 White Blood Count 15.9 K/UL (4.8-10.8) H Red Blood Count 4.04 M/UL (4.20-5.40) L Hemoglobin 11.2 G/DL (12.0-16.0) L Hematocrit 33.9 % (37.0-47.0) L Mean Corpuscular Volume 84 FL (80-99) Mean Corpuscular Hemoglobin 27.8 PG (27.0-31.0) Mean Corpuscular Hemoglobin Concent 33.1 G/DL (32.0-36.0) Red Cell Distribution Width 15.7 % (11.6-14.8) H Platelet Count 444 K/UL (150-450) Mean Platelet Volume 8.0 FL (6.5-10.1) Neutrophils (%) (Auto) 72.5 % (45.0-75.0) Lymphocytes (%) (Auto) 20.7 % (20.0-45.0) Monocytes (%) (Auto) 4.7 % (1.0-10.0) Eosinophils (%) (Auto) 1.2 % (0.0-3.0) Basophils (%) (Auto) 0.9 % (0.0-2.0) Sodium Level 132 MMOL/L (136-145) L Potassium Level 4.6 MMOL/L (3.5-5.1) Chloride Level 98 MMOL/L (98-107) Carbon Dioxide Level 31 MMOL/L (21-32) Anion Gap 3 mmol/L (5-15) L Blood Urea Nitrogen 15 mg/dL (7-18) Creatinine 0.5 MG/DL (0.55-1.30) L Estimat Glomerular Filtration Rate mL/min (>60) Glucose Level 139 MG/DL (74-106) H Calcium Level 8.8 MG/DL (8.5-10.1) Current Medications Medications (Trade) Dose Ordered Sig/Rosetta Route PRN Reason Start Time Stop Time Status Last Admin Dose Admin Acetaminophen (Tylenol) 650 mg Q4H PRN GT Mild Pain/Temp > 100.5 02/09/18 16:00 03/10/18 15:59 02/18/18 14:48 Ascorbic Acid (Vitamin C) 500 mg DAILY GT 02/10/18 09:00 03/07/18 08:59 02/20/18 08:52 Clonidine HCl (Catapres Tab) 0.1 mg Q8H PRN GT SBP >160 02/09/18 17:00 03/09/18 16:59 02/09/18 17:31 Dextrose 1,000 ml @ 75 mls/hr [id number] IV 02/11/18 17:30 03/13/18 17:29 02/20/18 03:31 Dextrose (Dextrose 50%) 25 ml STAT PRN IV Hypoglycemia 02/09/18 16:00 03/11/18 15:59 Dextrose (Dextrose 50%) 50 ml STAT PRN IV Hypoglycemia 02/09/18 16:00 03/11/18 15:59 Digoxin (Lanoxin) 0.125 mg DAILY GT 02/10/18 09:00 03/07/18 08:59 02/20/18 08:52 Diltiazem HCl (Cardizem) 30 mg EVERY 8 HOURS ORAL 02/10/18 22:00 03/12/18 21:59 02/20/18 14:14 Enoxaparin Sodium (Lovenox) 30 mg Q24H SUBQ 02/10/18 09:00 03/07/18 08:59 02/20/18 08:53 Famotidine (Pepcid) 20 mg DAILY GT 02/10/18 09:00 03/10/18 08:59 02/20/18 08:52 Insulin Aspart (NovoLOG) EVERY 6 HOURS SUBQ 02/09/18 18:00 03/07/18 06:29 02/20/18 12:19 Meropenem 1 gm/ Sodium Chloride 110 ml @ 220 mls/hr Q12HR@0600,1800 IVPB 02/20/18 18:00 02/25/18 17:59 Dom Hoffman M.D. Feb 20, 2018 15:35
[2018-02-20 16:00] VITALS: BP 144/74
--- NOTE | 2018-02-20 17:18 | Pulmonology Progress Note ---
Assessment/Plan Assessment/Plan 1. pna 2. Respiratory failure on BiPAP 3. Hypertension. 4. Diabetes mellitus. 5. Dehydration, hypernatremia 6. Tardive dyskinesia 7. hypoxemia DISCUSSION: 1. Continue BiPAP 2. FU labs 3. Antibiotics. 4. off IVF 5. DVT and GI prophylaxes. 6. titrate o2 7. Discussed with RN 8. Agree with recommendation for DNR outlined in Bioethics note 9. prognosis poor Subjective ROS Limited/Unobtainable: No Allergies: Coded Allergies: No Known Allergies (Verified , 03/10/07) Subjective obtunded on bipap episodes of desaturation no report cp nv or bleeding tolerating TF no famiily at the bedside Objective Last 24 Hour Vital Signs Date Time Temp Pulse Resp B/P (MAP) Pulse Ox O2 Delivery O2 Flow Rate FiO2 02/20/18 16:00 90 02/20/18 16:00 Bi-pap 02/20/18 16:00 15.0 55 02/20/18 14:14 96 146/66 02/20/18 12:51 86 26 93 55 02/20/18 12:00 98 02/20/18 12:00 65 02/20/18 12:00 97.4 99 25 149/69 (95) 100 97.4 02/20/18 12:00 Bi-pap 02/20/18 10:42 87 23 100 Facial 65 02/20/18 08:52 92 02/20/18 08:42 90 27 100 Facial 75 02/20/18 08:17 101 02/20/18 08:00 96 02/20/18 08:00 85 02/20/18 08:00 96.8 97 23 124/61 (82) 100 96.8 02/20/18 08:00 Bi-pap 02/20/18 07:53 90 100 85 02/20/18 06:47 100 Bi-pap 100 02/20/18 06:47 Bi-pap 100 02/20/18 06:47 90 27 100 Facial 100 02/20/18 06:17 93 148/76 02/20/18 05:38 101 02/20/18 05:20 93 31 100 Facial 100 02/20/18 04:00 100 02/20/18 04:00 98.7 106 28 154/87 (109) 97 98.7 02/20/18 04:00 89 02/20/18 04:00 Bi-pap 02/20/18 03:22 100 34 100 Facial 100 02/20/18 01:01 117 36 97 Facial 100 02/20/18 00:00 Bi-pap 02/20/18 00:00 100 02/20/18 00:00 98.8 113 30 148/76 (100) 97 98.8 02/20/18 00:00 117 02/19/18 23:28 111 40 90 Facial 100 02/19/18 20:45 118 146/81 02/19/18 20:41 118 42 91 Facial 100 02/19/18 20:00 98.6 141 35 142/74 (96) 89 98.6 02/19/18 20:00 100 02/19/18 20:00 Bi-pap 02/19/18 20:00 115 02/19/18 19:30 Bi-pap 100 02/19/18 19:30 90 Bi-pap 100 02/19/18 19:26 108 38 90 Facial 100 Intake and Output 02/19/18 02/20/18 19:00 07:00 Intake Total 1660 ml 2020 ml Output Total 500 ml 550 ml Balance 1160 ml 1470 ml Free Water 300 ml 200 ml IV Total 880 ml 1300 ml Tube Feeding 480 ml 520 ml Output Urine Total 500 ml 550 ml # Bowel Movements 1 General Appearance: cachetic Respiratory/Chest: rhonchi Cardiovascular: normal rate Abdomen: soft, non tender Skin: no rash Neurologic/Psychiatric: disoriented, unresponsiveness Microbiology Date/Time Source Procedure Growth Status 02/18/18 20:30 Sputum Expectorated Gram Stain - Final Resulted 02/18/18 20:30 Sputum Expectorated Sputum Culture - Preliminary NORMAL UPPER RESPIRATORY LAITH PRESENT Resulted Laboratory Tests 02/20/18 03:26: White Blood Count 15.9H, Red Blood Count 4.04L, Hemoglobin 11.2L, Hematocrit 33.9L, Mean Corpuscular Volume 84, Mean Corpuscular Hemoglobin 27.8, Mean Corpuscular Hemoglobin Concent 33.1, Red Cell Distribution Width 15.7H, Platelet Count 444, Mean Platelet Volume 8.0, Neutrophils (%) (Auto) 72.5, Lymphocytes (%) (Auto) 20.7, Monocytes (%) (Auto) 4.7, Eosinophils (%) (Auto) 1.2, Basophils (%) (Auto) 0.9, Sodium Level 132L, Potassium Level 4.6, Chloride Level 98, Carbon Dioxide Level 31, Anion Gap 3L, Blood Urea Nitrogen 15, Creatinine 0.5L, Estimat Glomerular Filtration Rate , Glucose Level 139H, Calcium Level 8.8 Current Medications Medications (Trade) Dose Ordered Sig/Rosetta Route PRN Reason Start Time Stop Time Status Last Admin Dose Admin Acetaminophen (Tylenol) 650 mg Q4H PRN GT Mild Pain/Temp > 100.5 02/09/18 16:00 03/10/18 15:59 02/18/18 14:48 Ascorbic Acid (Vitamin C) 500 mg DAILY GT 02/10/18 09:00 03/07/18 08:59 02/20/18 08:52 Clonidine HCl (Catapres Tab) 0.1 mg Q8H PRN GT SBP >160 02/09/18 17:00 03/09/18 16:59 02/09/18 17:31 Dextrose 1,000 ml @ 75 mls/hr [id number] IV 02/11/18 17:30 03/13/18 17:29 02/20/18 03:31 Dextrose (Dextrose 50%) 25 ml STAT PRN IV Hypoglycemia 02/09/18 16:00 03/11/18 15:59 Dextrose (Dextrose 50%) 50 ml STAT PRN IV Hypoglycemia 02/09/18 16:00 03/11/18 15:59 Digoxin (Lanoxin) 0.125 mg DAILY GT 02/10/18 09:00 03/07/18 08:59 02/20/18 08:52 Diltiazem HCl (Cardizem) 30 mg EVERY 8 HOURS ORAL 02/10/18 22:00 03/12/18 21:59 02/20/18 14:14 Enoxaparin Sodium (Lovenox) 30 mg Q24H SUBQ 02/10/18 09:00 03/07/18 08:59 02/20/18 08:53 Famotidine (Pepcid) 20 mg DAILY GT 02/10/18 09:00 03/10/18 08:59 02/20/18 08:52 Insulin Aspart (NovoLOG) EVERY 6 HOURS SUBQ 02/09/18 18:00 03/07/18 06:29 02/20/18 12:19 Meropenem 1 gm/ Sodium Chloride 110 ml @ 220 mls/hr Q12HR@0600,1800 IVPB 02/20/18 18:00 02/25/18 17:59 Linnette Walton DO Feb 20, 2018 17:18
[2018-02-20] MEDS: Meropenem 1gm/NS 110ml IVPB SCH ×2 (17:48)
--- NOTE | 2018-02-20 18:36 | General Surgery Progress Note ---
General Surgery-Progress Note Subjective Symptoms: worse Objective Last 24 Hour Vital Signs Date Time Temp Pulse Resp B/P (MAP) Pulse Ox O2 Delivery O2 Flow Rate FiO2 02/20/18 17:29 89 23 94 Facial 65 02/20/18 16:00 90 02/20/18 16:00 96.8 98 28 144/74 (97) 91 96.8 02/20/18 16:00 Bi-pap 02/20/18 16:00 15.0 55 02/20/18 15:29 89 24 96 55 02/20/18 14:14 96 146/66 02/20/18 12:51 86 26 93 55 02/20/18 12:00 98 02/20/18 12:00 65 02/20/18 12:00 97.4 99 25 149/69 (95) 100 97.4 02/20/18 12:00 Bi-pap 02/20/18 10:42 87 23 100 Facial 65 02/20/18 08:52 92 02/20/18 08:42 90 27 100 Facial 75 02/20/18 08:17 101 02/20/18 08:00 96 02/20/18 08:00 85 02/20/18 08:00 96.8 97 23 124/61 (82) 100 96.8 02/20/18 08:00 Bi-pap 02/20/18 07:53 90 100 85 02/20/18 06:47 100 Bi-pap 100 02/20/18 06:47 Bi-pap 100 02/20/18 06:47 90 27 100 Facial 100 02/20/18 06:17 93 148/76 02/20/18 05:38 101 02/20/18 05:20 93 31 100 Facial 100 02/20/18 04:00 100 02/20/18 04:00 98.7 106 28 154/87 (109) 97 98.7 02/20/18 04:00 89 02/20/18 04:00 Bi-pap 02/20/18 03:22 100 34 100 Facial 100 02/20/18 01:01 117 36 97 Facial 100 02/20/18 00:00 Bi-pap 02/20/18 00:00 100 02/20/18 00:00 98.8 113 30 148/76 (100) 97 98.8 02/20/18 00:00 117 02/19/18 23:28 111 40 90 Facial 100 02/19/18 20:45 118 146/81 02/19/18 20:41 118 42 91 Facial 100 02/19/18 20:00 98.6 141 35 142/74 (96) 89 98.6 02/19/18 20:00 100 02/19/18 20:00 Bi-pap 02/19/18 20:00 115 02/19/18 19:30 Bi-pap 100 02/19/18 19:30 90 Bi-pap 100 02/19/18 19:26 108 38 90 Facial 100 I&O Intake and Output 02/19/18 02/20/18 19:00 07:00 Intake Total 1660 ml 2020 ml Output Total 500 ml 550 ml Balance 1160 ml 1470 ml Free Water 300 ml 200 ml IV Total 880 ml 1300 ml Tube Feeding 480 ml 520 ml Output Urine Total 500 ml 550 ml # Bowel Movements 1 Dressing: saturated Wound: intact Drains: none Cardiovascular: RSR Respiratory: decreased breath sounds Abdomen: soft, distended Extremities: edema Laboratory Tests Test 02/20/18 03:26 White Blood Count 15.9 K/UL (4.8-10.8) H Red Blood Count 4.04 M/UL (4.20-5.40) L Hemoglobin 11.2 G/DL (12.0-16.0) L Hematocrit 33.9 % (37.0-47.0) L Mean Corpuscular Volume 84 FL (80-99) Mean Corpuscular Hemoglobin 27.8 PG (27.0-31.0) Mean Corpuscular Hemoglobin Concent 33.1 G/DL (32.0-36.0) Red Cell Distribution Width 15.7 % (11.6-14.8) H Platelet Count 444 K/UL (150-450) Mean Platelet Volume 8.0 FL (6.5-10.1) Neutrophils (%) (Auto) 72.5 % (45.0-75.0) Lymphocytes (%) (Auto) 20.7 % (20.0-45.0) Monocytes (%) (Auto) 4.7 % (1.0-10.0) Eosinophils (%) (Auto) 1.2 % (0.0-3.0) Basophils (%) (Auto) 0.9 % (0.0-2.0) Sodium Level 132 MMOL/L (136-145) L Potassium Level 4.6 MMOL/L (3.5-5.1) Chloride Level 98 MMOL/L (98-107) Carbon Dioxide Level 31 MMOL/L (21-32) Anion Gap 3 mmol/L (5-15) L Blood Urea Nitrogen 15 mg/dL (7-18) Creatinine 0.5 MG/DL (0.55-1.30) L Estimat Glomerular Filtration Rate mL/min (>60) Glucose Level 139 MG/DL (74-106) H Calcium Level 8.8 MG/DL (8.5-10.1) Plan Problems: (1) Sepsis Assessment & Plan: PNA, UTI, multiple wounds. unlikely wounds etiology of sepsis given clinical evaluation. -Cont Abx as per ID (2) Foot ulcer, right Assessment & Plan: right foot medial aspect with two wounds. proximal unstageable with necrotic eschar has since sloth off, no erythema, no edema, no signs of infection, no drainage, no odor. distal with open stage II ulcer with ulcer erythema, no edema, no signs of infection, no drainage, no odor. -skin protectant and foam dressings daily and prn. -no debridement currently necessary. no signs of active infection -wounds present on admission (3) Decubitus ulcer of left hip, stage 2 Assessment & Plan: stage II left hip pressure ulcer. open stage II ulcer with ulcer erythema, no edema, no signs of infection, no drainage, no odor. -skin protectant and foam dressings daily and prn. -no debridement currently necessary. -wounds present on admission (4) Sacral wound Assessment & Plan: stage III left hip pressure ulcer. open stage III ulcer with ulcer erythema, no edema, no signs of infection, minimal serous oozing/ drainage, no odor. please refer to wound care photos for size and shape -skin protectant and foam dressings daily and prn. fortunately superficial and minimal depth. majority stage II and small portion stage III. area of unstageable but stable -wound not improving likely given patients poor medical condition. areas of fibrinous debris and small necrotic tissue. care being doing appropriately by staff with turning, keeping pressure off wound, and dressings. but patient poor nutritional status and chronic medical issues make it difficult to heal. may need debridement but given condition, bioethics recommendation and possible dnr/comfort soon will hold off. -wounds present on admission Nikko Austin Feb 20, 2018 18:36
[2018-02-20 20:00] VITALS: BP 125/72
--- NOTE | 2018-02-20 23:22 | General Progress Note ---
Assessment/Plan Assessment/Plan Dementia encephalopathy the pt lacks capacity to make decisions haldol prn will fill out the forms Subjective Date patient seen: Feb 20, 2018 Neurologic/Psychiatric: Reports: anxiety, depressed, emotional problems Allergies: Coded Allergies: No Known Allergies (Verified , 03/10/07) Subjective the pt is confused lethargic. the pt has severe cognitive impairment. Objective Last 24 Hour Vital Signs Date Time Temp Pulse Resp B/P (MAP) Pulse Ox O2 Delivery O2 Flow Rate FiO2 02/20/18 21:53 89 125/72 02/20/18 21:02 89 31 99 Facial 100 02/20/18 20:00 80 02/20/18 20:00 97.5 94 20 125/72 (89) 98 97.5 02/20/18 20:00 Bi-pap 02/20/18 18:45 97 29 98 Facial 100 02/20/18 18:45 98 Bi-pap 100 02/20/18 18:45 Bi-pap 100 02/20/18 17:29 89 23 94 Facial 65 02/20/18 16:00 90 02/20/18 16:00 96.8 98 28 144/74 (97) 91 96.8 02/20/18 16:00 Bi-pap 02/20/18 16:00 15.0 55 02/20/18 15:29 89 24 96 55 02/20/18 14:14 96 146/66 02/20/18 12:51 86 26 93 55 02/20/18 12:00 98 02/20/18 12:00 65 02/20/18 12:00 97.4 99 25 149/69 (95) 100 97.4 02/20/18 12:00 Bi-pap 02/20/18 10:42 87 23 100 Facial 65 02/20/18 08:52 92 02/20/18 08:42 90 27 100 Facial 75 02/20/18 08:17 101 02/20/18 08:00 96 02/20/18 08:00 85 02/20/18 08:00 96.8 97 23 124/61 (82) 100 96.8 02/20/18 08:00 Bi-pap 02/20/18 07:53 90 100 85 02/20/18 06:47 100 Bi-pap 100 02/20/18 06:47 Bi-pap 100 02/20/18 06:47 90 27 100 Facial 100 02/20/18 06:17 93 148/76 02/20/18 05:38 101 02/20/18 05:20 93 31 100 Facial 100 02/20/18 04:00 100 02/20/18 04:00 98.7 106 28 154/87 (109) 97 98.7 02/20/18 04:00 89 02/20/18 04:00 Bi-pap 02/20/18 03:22 100 34 100 Facial 100 02/20/18 01:01 117 36 97 Facial 100 02/20/18 00:00 Bi-pap 02/20/18 00:00 100 02/20/18 00:00 98.8 113 30 148/76 (100) 97 98.8 02/20/18 00:00 117 02/19/18 23:28 111 40 90 Facial 100 Intake and Output 02/19/18 02/20/18 19:00 07:00 Intake Total 1660 ml 2020 ml Output Total 500 ml 550 ml Balance 1160 ml 1470 ml Free Water 300 ml 200 ml IV Total 880 ml 1300 ml Tube Feeding 480 ml 520 ml Output Urine Total 500 ml 550 ml # Bowel Movements 1 Laboratory Tests 02/20/18 03:26: White Blood Count 15.9H, Red Blood Count 4.04L, Hemoglobin 11.2L, Hematocrit 33.9L, Mean Corpuscular Volume 84, Mean Corpuscular Hemoglobin 27.8, Mean Corpuscular Hemoglobin Concent 33.1, Red Cell Distribution Width 15.7H, Platelet Count 444, Mean Platelet Volume 8.0, Neutrophils (%) (Auto) 72.5, Lymphocytes (%) (Auto) 20.7, Monocytes (%) (Auto) 4.7, Eosinophils (%) (Auto) 1.2, Basophils (%) (Auto) 0.9, Sodium Level 132L, Potassium Level 4.6, Chloride Level 98, Carbon Dioxide Level 31, Anion Gap 3L, Blood Urea Nitrogen 15, Creatinine 0.5L, Estimat Glomerular Filtration Rate , Glucose Level 139H, Calcium Level 8.8 Height (Feet): 4 Height (Inches): 0.00 Weight (Pounds): 101 Darling Baker MD Feb 20, 2018 23:22
[2018-02-21] VITALS: BP 144/75
[2018-02-21] MEDS ORDERED: LORazepam Inj 2mg/ml 1ml IV PRN
[2018-02-21 04:00] VITALS: BP 146/61
[2018-02-21 04:56] LABS: BASOPHILS % (AUTO) 1.1 % (0.0-2.0); EOSINOPHILS % (AUTO) 1.1 % (0.0-3.0); HEMATOCRIT 30.8 % (37.0-47.0); HEMOGLOBIN 10.3 G/DL (12.0-16.0); LYMPHOCYTES % (AUTO) 11.9 % (20.0-45.0); MEAN CORPUSCULAR VOLUME 85 FL (80-99); MONOCYTES % (AUTO) 5.4 % (1.0-10.0); NEUTROPHILS % (AUTO) 80.5 % (45.0-75.0); PLATELET COUNT 409 K/UL (150-450); RED BLOOD COUNT 3.61 M/UL (4.20-5.40); RED CELL DISTRIBUTION WIDTH 15.8 % (11.6-14.8); WHITE BLOOD COUNT 16.1 K/UL (4.8-10.8)
[2018-02-21] MEDS: Meropenem 1gm/NS 110ml IVPB SCH ×4 (05:04→18:00)
[2018-02-21] MEDS: dilTIAZem HCl 30mg tab ORAL SCH ×3 (05:16→22:13)
[2018-02-21] MEDS: NovoLOG Insulin Flexpen SUBQ SCH ×4 (05:18→18:03)
[2018-02-21 05:20] LABS: ANION GAP 0 mmol/L (5-15); BLOOD UREA NITROGEN 13 mg/dL (7-18); CALCIUM 9.1 MG/DL (8.5-10.1); CARBON DIOXIDE 35 MMOL/L (21-32); CHLORIDE 101 MMOL/L (98-107); CREATININE 0.4 MG/DL (0.55-1.30); POTASSIUM 4.3 MMOL/L (3.5-5.1); SODIUM 136 MMOL/L (136-145)
[2018-02-21 08:00] VITALS: BP 152/76
--- NOTE | 2018-02-21 08:42 | Nephrology Progress Note ---
Assessment/Plan Assessment/Plan 1. Sepsis - Abx per ID mgmt as WBC elevated 2. Scral Decub- Gen Surg 3. Hyponatremia- resolved. DC IVF's 4. Resp FL- on BiPaP, defer mgmt to Pulm. Awaiting court decision on DNR/I 5. AFib- digoxin + cardizem 6. DVT prophylaxis- lovenox Awaiting poss court decision to convert patient to DNR/I comfort care Subjective Date patient seen: Feb 21, 2018 Time patient seen: 08:39 ROS Limited/Unobtainable: No Allergies: Coded Allergies: No Known Allergies (Verified , 03/10/07) Subjective Patient remains on BiPAP and continues to fail weaning trials Objective Last 24 Hour Vital Signs Date Time Temp Pulse Resp B/P (MAP) Pulse Ox O2 Delivery O2 Flow Rate FiO2 02/21/18 08:00 Bi-pap 02/21/18 08:00 100 02/21/18 08:00 98.2 89 22 152/76 (101) 97 98.2 02/21/18 06:47 Bi-pap 100 02/21/18 06:47 89 35 95 Full Face 100 02/21/18 06:46 95 Bi-pap 100 02/21/18 05:16 80 146/61 02/21/18 05:14 87 35 78 Full Face 100 02/21/18 04:00 97.8 90 22 146/61 (89) 97 97.8 02/21/18 04:00 100 02/21/18 04:00 Bi-pap 02/21/18 04:00 80 02/21/18 03:25 80 26 100 Full Face 100 02/21/18 00:32 94 31 91 Full Face 100 02/21/18 00:00 Bi-pap 02/21/18 00:00 97.8 93 35 144/75 (98) 98 97.8 02/21/18 00:00 91 02/20/18 23:00 87 34 95 Full Face 100 02/20/18 21:53 89 125/72 02/20/18 21:02 89 31 99 Facial 100 02/20/18 20:00 80 02/20/18 20:00 100 02/20/18 20:00 97.5 94 20 125/72 (89) 98 97.5 02/20/18 20:00 Bi-pap 02/20/18 18:45 97 29 98 Facial 100 02/20/18 18:45 98 Bi-pap 100 02/20/18 18:45 Bi-pap 100 02/20/18 17:29 89 23 94 Facial 65 02/20/18 16:00 90 02/20/18 16:00 96.8 98 28 144/74 (97) 91 96.8 02/20/18 16:00 Bi-pap 02/20/18 16:00 15.0 55 02/20/18 15:29 89 24 96 55 02/20/18 14:14 96 146/66 02/20/18 12:51 86 26 93 55 02/20/18 12:00 98 02/20/18 12:00 65 02/20/18 12:00 97.4 99 25 149/69 (95) 100 97.4 02/20/18 12:00 Bi-pap 02/20/18 10:42 87 23 100 Facial 65 02/20/18 08:52 92 02/20/18 08:42 90 27 100 Facial 75 Intake and Output 02/20/18 02/21/18 19:00 07:00 Intake Total 1668.75 ml 1437.5 ml Balance 1668.75 ml 1437.5 ml Free Water 50 ml 100 ml IV Total 938.75 ml 897.5 ml Tube Feeding 480 ml 440 ml Other 200 ml # Voids 2 # Bowel Movements 2 2 Laboratory Tests 02/21/18 03:05: White Blood Count 16.1H, Red Blood Count 3.61L, Hemoglobin 10.3L, Hematocrit 30.8L, Mean Corpuscular Volume 85, Mean Corpuscular Hemoglobin 28.6, Mean Corpuscular Hemoglobin Concent 33.6, Red Cell Distribution Width 15.8H, Platelet Count 409, Mean Platelet Volume 7.4, Neutrophils (%) (Auto) 80.5H, Lymphocytes (%) (Auto) 11.9L, Monocytes (%) (Auto) 5.4, Eosinophils (%) (Auto) 1.1, Basophils (%) (Auto) 1.1, Sodium Level 136, Potassium Level 4.3, Chloride Level 101, Carbon Dioxide Level 35H, Anion Gap 0L, Blood Urea Nitrogen 13, Creatinine 0.4L, Estimat Glomerular Filtration Rate , Glucose Level 152H, Calcium Level 9.1 Height (Feet): 4 Height (Inches): 0.00 Weight (Pounds): 98 General Appearance: confused EENT: PERRL/EOMI Neck: normal alignment, supple Cardiovascular: normal rate, regular rhythm Respiratory/Chest: rhonchi - bilaterally Abdomen: non tender, soft Edema: no edema noted Arm (L), no edema noted Arm (R), no edema noted Leg (L), no edema noted Leg (R), no edema noted Pedal (L), no edema noted Pedal (R), no edema noted Generalized Jorge Graf M.D. Feb 21, 2018 08:42
[2018-02-21] MEDS: Digoxin 0.125mg tab GT SCH (09:10)
[2018-02-21] MEDS: Ascorbic Acid 500mg tab GT SCH (09:10)
[2018-02-21] MEDS: Enoxaparin 30mg Inj SUBQ SCH (09:12)
[2018-02-21 12:00] VITALS: BP 146/82
--- NOTE | 2018-02-21 13:22 | Pulmonology Progress Note ---
Assessment/Plan Assessment/Plan 1. pna 2. Respiratory failure on BiPAP 3. Hypertension. 4. Diabetes mellitus. 5. Dehydration, hypernatremia 6. Tardive dyskinesia 7. hypoxemia DISCUSSION: 1. Continue BiPAP 2. FU labs 3. Antibiotics. 4. off IVF 5. DVT and GI prophylaxes. 6. titrate o2 7. Discussed with RN 8. Agree with recommendation for DNR outlined in Bioethics note 9. prognosis poor Subjective ROS Limited/Unobtainable: Yes Allergies: Coded Allergies: No Known Allergies (Verified , 03/10/07) Subjective obtunded on bipap episodes of desaturation no report cp nv or bleeding tolerating TF no famiily at the bedside Objective Last 24 Hour Vital Signs Date Time Temp Pulse Resp B/P (MAP) Pulse Ox O2 Delivery O2 Flow Rate FiO2 02/21/18 12:58 86 35 90 Full Face 100 02/21/18 12:00 100 02/21/18 12:00 Bi-pap 02/21/18 12:00 97.3 91 35 146/82 (103) 73 97.3 02/21/18 10:37 55 41 93 Full Face 100 02/21/18 09:26 91 38 94 Full Face 60 02/21/18 09:10 88 02/21/18 08:00 Bi-pap 02/21/18 08:00 100 02/21/18 08:00 82 02/21/18 08:00 98.2 89 22 152/76 (101) 97 98.2 02/21/18 06:47 Bi-pap 100 02/21/18 06:47 89 35 95 Full Face 100 02/21/18 06:46 95 Bi-pap 100 02/21/18 05:16 80 146/61 02/21/18 05:14 87 35 78 Full Face 100 02/21/18 04:00 97.8 90 22 146/61 (89) 97 97.8 02/21/18 04:00 100 02/21/18 04:00 Bi-pap 02/21/18 04:00 80 02/21/18 03:25 80 26 100 Full Face 100 02/21/18 00:32 94 31 91 Full Face 100 02/21/18 00:00 Bi-pap 02/21/18 00:00 97.8 93 35 144/75 (98) 98 97.8 02/21/18 00:00 91 02/20/18 23:00 87 34 95 Full Face 100 02/20/18 21:53 89 125/72 02/20/18 21:02 89 31 99 Facial 100 02/20/18 20:00 80 02/20/18 20:00 100 02/20/18 20:00 97.5 94 20 125/72 (89) 98 97.5 02/20/18 20:00 Bi-pap 02/20/18 18:45 97 29 98 Facial 100 02/20/18 18:45 98 Bi-pap 100 02/20/18 18:45 Bi-pap 100 02/20/18 17:29 89 23 94 Facial 65 02/20/18 16:00 90 02/20/18 16:00 96.8 98 28 144/74 (97) 91 96.8 02/20/18 16:00 Bi-pap 02/20/18 16:00 15.0 55 02/20/18 15:29 89 24 96 55 02/20/18 14:14 96 146/66 Intake and Output 02/20/18 02/21/18 19:00 07:00 Intake Total 1668.75 ml 1437.5 ml Balance 1668.75 ml 1437.5 ml Free Water 50 ml 100 ml IV Total 938.75 ml 897.5 ml Tube Feeding 480 ml 440 ml Other 200 ml # Voids 2 # Bowel Movements 2 2 General Appearance: cachetic HEENT: atraumatic, anicteric Respiratory/Chest: rhonchi Cardiovascular: normal rate, regular rhythm Abdomen: soft, non tender Neurologic/Psychiatric: disoriented, unresponsiveness Microbiology Date/Time Source Procedure Growth Status 02/18/18 20:30 Sputum Expectorated Gram Stain - Final Complete 02/18/18 20:30 Sputum Expectorated Sputum Culture - Final NORMAL UPPER RESPIRATORY LAITH PRESENT Complete Laboratory Tests 02/21/18 03:05: White Blood Count 16.1H, Red Blood Count 3.61L, Hemoglobin 10.3L, Hematocrit 30.8L, Mean Corpuscular Volume 85, Mean Corpuscular Hemoglobin 28.6, Mean Corpuscular Hemoglobin Concent 33.6, Red Cell Distribution Width 15.8H, Platelet Count 409, Mean Platelet Volume 7.4, Neutrophils (%) (Auto) 80.5H, Lymphocytes (%) (Auto) 11.9L, Monocytes (%) (Auto) 5.4, Eosinophils (%) (Auto) 1.1, Basophils (%) (Auto) 1.1, Sodium Level 136, Potassium Level 4.3, Chloride Level 101, Carbon Dioxide Level 35H, Anion Gap 0L, Blood Urea Nitrogen 13, Creatinine 0.4L, Estimat Glomerular Filtration Rate , Glucose Level 152H, Calcium Level 9.1 Current Medications Medications (Trade) Dose Ordered Sig/Ros[place] Route PRN Reason Start Time Stop Time Status Last Admin Dose Admin Acetaminophen (Tylenol) 650 mg Q4H PRN GT Mild Pain/Temp > 100.5 02/09/18 16:00 03/10/18 15:59 02/18/18 14:48 Ascorbic Acid (Vitamin C) 500 mg DAILY GT 02/10/18 09:00 03/07/18 08:59 02/21/18 09:10 Clonidine HCl (Catapres Tab) 0.1 mg Q8H PRN GT SBP >160 02/09/18 17:00 03/09/18 16:59 02/09/18 17:31 Dextrose (Dextrose 50%) 25 ml STAT PRN IV Hypoglycemia 02/09/18 16:00 03/11/18 15:59 Dextrose (Dextrose 50%) 50 ml STAT PRN IV Hypoglycemia 02/09/18 16:00 03/11/18 15:59 Digoxin (Lanoxin) 0.125 mg DAILY GT 02/10/18 09:00 03/07/18 08:59 02/21/18 09:10 Diltiazem HCl (Cardizem) 30 mg EVERY 8 HOURS ORAL 02/10/18 22:00 03/12/18 21:59 02/21/18 05:16 Enoxaparin Sodium (Lovenox) 30 mg Q24H SUBQ 02/10/18 09:00 03/07/18 08:59 02/21/18 09:12 Famotidine (Pepcid) 20 mg DAILY GT 02/10/18 09:00 03/10/18 08:59 02/21/18 09:09 Insulin Aspart (NovoLOG) EVERY 6 HOURS SUBQ 02/09/18 18:00 03/07/18 06:29 02/21/18 12:26 Lorazepam (Ativan 2mg/ml 1ml) 1 mg Q4H PRN IV For Anxiety 02/21/18 00:00 02/28/18 00:00 Meropenem 1 gm/ Sodium Chloride 110 ml @ 220 mls/hr Q12HR@0600,1800 IVPB 02/20/18 18:00 02/25/18 17:59 02/21/18 05:04 Linnette Walton DO Feb 21, 2018 13:21
--- NOTE | 2018-02-21 14:27 | Cardiac Electrophysiology PN ---
Assessment/Plan Assessment/Plan 1. Paroxysmal atrial fibrillation. In SR on digoxin 0.125 mg daily and Cardizem 30 tid Off anticoagulation. Echo Nl EF. 2. Hypertension. On Cardizem 30 tid 3. Respiratory failure, back on BiPAP and Abx 4. Diabetes, on insulin. 5. Dementia. 6. Dysphagia, status post PEG placement. 7. Sacral decubitus stage III. FU by Dr. Austin. 8. CVA with aphasia and contractures. DW RN Subjective Subjective Back on BIPAP again. In SR. Objective Last 24 Hour Vital Signs Date Time Temp Pulse Resp B/P (MAP) Pulse Ox O2 Delivery O2 Flow Rate FiO2 02/21/18 14:16 93 150/81 02/21/18 12:58 86 35 90 Full Face 100 02/21/18 12:00 100 02/21/18 12:00 Bi-pap 02/21/18 12:00 97.3 91 35 146/82 (103) 73 97.3 02/21/18 12:00 93 02/21/18 10:37 55 41 93 Full Face 100 02/21/18 09:26 91 38 94 Full Face 60 02/21/18 09:10 88 02/21/18 08:00 Bi-pap 02/21/18 08:00 100 02/21/18 08:00 82 02/21/18 08:00 98.2 89 22 152/76 (101) 97 98.2 02/21/18 06:47 Bi-pap 100 02/21/18 06:47 89 35 95 Full Face 100 02/21/18 06:46 95 Bi-pap 100 02/21/18 05:16 80 146/61 02/21/18 05:14 87 35 78 Full Face 100 02/21/18 04:00 97.8 90 22 146/61 (89) 97 97.8 02/21/18 04:00 100 02/21/18 04:00 Bi-pap 02/21/18 04:00 80 02/21/18 03:25 80 26 100 Full Face 100 02/21/18 00:32 94 31 91 Full Face 100 02/21/18 00:00 Bi-pap 02/21/18 00:00 97.8 93 35 144/75 (98) 98 97.8 02/21/18 00:00 91 02/20/18 23:00 87 34 95 Full Face 100 02/20/18 21:53 89 125/72 02/20/18 21:02 89 31 99 Facial 100 02/20/18 20:00 80 02/20/18 20:00 100 02/20/18 20:00 97.5 94 20 125/72 (89) 98 97.5 02/20/18 20:00 Bi-pap 02/20/18 18:45 97 29 98 Facial 100 02/20/18 18:45 98 Bi-pap 100 02/20/18 18:45 Bi-pap 100 02/20/18 17:29 89 23 94 Facial 65 02/20/18 16:00 90 02/20/18 16:00 96.8 98 28 144/74 (97) 91 96.8 02/20/18 16:00 Bi-pap 02/20/18 16:00 15.0 55 02/20/18 15:29 89 24 96 55 Intake and Output 02/20/18 02/21/18 19:00 07:00 Intake Total 1668.75 ml 1437.5 ml Balance 1668.75 ml 1437.5 ml Free Water 50 ml 100 ml IV Total 938.75 ml 897.5 ml Tube Feeding 480 ml 440 ml Other 200 ml # Voids 2 # Bowel Movements 2 2 Laboratory Tests Test 02/21/18 03:05 White Blood Count 16.1 K/UL (4.8-10.8) H Red Blood Count 3.61 M/UL (4.20-5.40) L Hemoglobin 10.3 G/DL (12.0-16.0) L Hematocrit 30.8 % (37.0-47.0) L Mean Corpuscular Volume 85 FL (80-99) Mean Corpuscular Hemoglobin 28.6 PG (27.0-31.0) Mean Corpuscular Hemoglobin Concent 33.6 G/DL (32.0-36.0) Red Cell Distribution Width 15.8 % (11.6-14.8) H Platelet Count 409 K/UL (150-450) Mean Platelet Volume 7.4 FL (6.5-10.1) Neutrophils (%) (Auto) 80.5 % (45.0-75.0) H Lymphocytes (%) (Auto) 11.9 % (20.0-45.0) L Monocytes (%) (Auto) 5.4 % (1.0-10.0) Eosinophils (%) (Auto) 1.1 % (0.0-3.0) Basophils (%) (Auto) 1.1 % (0.0-2.0) Sodium Level 136 MMOL/L (136-145) Potassium Level 4.3 MMOL/L (3.5-5.1) Chloride Level 101 MMOL/L (98-107) Carbon Dioxide Level 35 MMOL/L (21-32) H Anion Gap 0 mmol/L (5-15) L Blood Urea Nitrogen 13 mg/dL (7-18) Creatinine 0.4 MG/DL (0.55-1.30) L Estimat Glomerular Filtration Rate mL/min (>60) Glucose Level 152 MG/DL (74-106) H Calcium Level 9.1 MG/DL (8.5-10.1) Microbiology Date/Time Source Procedure Growth Status 02/18/18 20:30 Sputum Expectorated Gram Stain - Final Complete 02/18/18 20:30 Sputum Expectorated Sputum Culture - Final NORMAL UPPER RESPIRATORY LAITH PRESENT Complete Objective HEAD AND NECK: No JVD. On Oxygen mask LUNGS: Coarse rhonchi CARDIOVASCULAR: Tachy S1 and S2 with no murmur. ABDOMEN: Soft and status post G-tube. EXTREMITIES: No pitting edema. She has sacral decubitus. Emmanuel Edgar MD Feb 21, 2018 14:27
--- NOTE | 2018-02-21 14:39 | Infectious Diseases Prog Note ---
Assessment/Plan Problems: (1) HCAP (healthcare-associated pneumonia) Assessment & Plan: complicated with respiratory failure, and aspiration pneumonia , continue meropenem empiric coverage , monitor CXR . pulmonary is following. she is BIBAP dependant . will benefit from comfort measures . 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 continue local wound care and dressing changes as per hospital protocol . was evaluated by general surgery (3) Sepsis Assessment & Plan: ruled out, with coag negative staphylococcus most likely contaminant , grew from one set. (4) Acute respiratory failure Assessment & Plan: with hypoxemia , due to the above, now BIPAP dependant , pulmonary is following, monitor CXR and ABG . she may need tracheostomy (5) Low grade fever Assessment & Plan: resolved , repeated sputum culture showed normal anjel , continue tylenol as needed Subjective ROS Limited/Unobtainable: Yes Allergies: Coded Allergies: No Known Allergies (Verified , 03/10/07) Subjective she was quiet, comfortable lyin in bed , still on BIPAP machine , can't be weaned off , no fever or chills , no cough or significant phlegm. getting tired . Objective Vital Signs Last 24 Hour Vital Signs Date Time Temp Pulse Resp B/P (MAP) Pulse Ox O2 Delivery O2 Flow Rate FiO2 02/21/18 14:16 93 150/81 02/21/18 12:58 86 35 90 Full Face 100 02/21/18 12:00 100 02/21/18 12:00 Bi-pap 02/21/18 12:00 97.3 91 35 146/82 (103) 73 97.3 02/21/18 12:00 93 02/21/18 10:37 55 41 93 Full Face 100 02/21/18 09:26 91 38 94 Full Face 60 02/21/18 09:10 88 02/21/18 08:00 Bi-pap 02/21/18 08:00 100 02/21/18 08:00 82 02/21/18 08:00 98.2 89 22 152/76 (101) 97 98.2 02/21/18 06:47 Bi-pap 100 02/21/18 06:47 89 35 95 Full Face 100 02/21/18 06:46 95 Bi-pap 100 02/21/18 05:16 80 146/61 02/21/18 05:14 87 35 78 Full Face 100 02/21/18 04:00 97.8 90 22 146/61 (89) 97 97.8 02/21/18 04:00 100 02/21/18 04:00 Bi-pap 02/21/18 04:00 80 02/21/18 03:25 80 26 100 Full Face 100 02/21/18 00:32 94 31 91 Full Face 100 02/21/18 00:00 Bi-pap 02/21/18 00:00 97.8 93 35 144/75 (98) 98 97.8 02/21/18 00:00 91 02/20/18 23:00 87 34 95 Full Face 100 02/20/18 21:53 89 125/72 02/20/18 21:02 89 31 99 Facial 100 02/20/18 20:00 80 02/20/18 20:00 100 02/20/18 20:00 97.5 94 20 125/72 (89) 98 97.5 02/20/18 20:00 Bi-pap 02/20/18 18:45 97 29 98 Facial 100 02/20/18 18:45 98 Bi-pap 100 02/20/18 18:45 Bi-pap 100 02/20/18 17:29 89 23 94 Facial 65 02/20/18 16:00 90 02/20/18 16:00 96.8 98 28 144/74 (97) 91 96.8 02/20/18 16:00 Bi-pap 02/20/18 16:00 15.0 55 02/20/18 15:29 89 24 96 55 Height (Feet): 4 Height (Inches): 0.00 Weight (Pounds): 98 General Appearance: no acute distress, cachetic, other - tired HEENT: normocephalic, atraumatic, anicteric, mucous membranes moist, PERRL Respiratory/Chest: chest wall non-tender, lungs clear, normal breath sounds, no respiratory distress, no accessory muscle use Cardiovascular: normal peripheral pulses, normal rate, regular rhythm, no gallop/murmur, no JVD Abdomen: normal bowel sounds, soft, non tender, no organomegaly, non distended , no mass, no scars Genitourinary: normal external genitalia Extremities: no cyanosis, no clubbing Skin: no rash, no lesions, no ulcers Neurologic/Psychiatric: alert, unresponsiveness Lymphatic: no neck adenopathy, no groin adenopathy Microbiology Date/Time Source Procedure Growth Status 02/18/18 20:30 Sputum Expectorated Gram Stain - Final Complete 02/18/18 20:30 Sputum Expectorated Sputum Culture - Final NORMAL UPPER RESPIRATORY ANJEL PRESENT Complete Laboratory Tests Test 02/21/18 03:05 White Blood Count 16.1 K/UL (4.8-10.8) H Red Blood Count 3.61 M/UL (4.20-5.40) L Hemoglobin 10.3 G/DL (12.0-16.0) L Hematocrit 30.8 % (37.0-47.0) L Mean Corpuscular Volume 85 FL (80-99) Mean Corpuscular Hemoglobin 28.6 PG (27.0-31.0) Mean Corpuscular Hemoglobin Concent 33.6 G/DL (32.0-36.0) Red Cell Distribution Width 15.8 % (11.6-14.8) H Platelet Count 409 K/UL (150-450) Mean Platelet Volume 7.4 FL (6.5-10.1) Neutrophils (%) (Auto) 80.5 % (45.0-75.0) H Lymphocytes (%) (Auto) 11.9 % (20.0-45.0) L Monocytes (%) (Auto) 5.4 % (1.0-10.0) Eosinophils (%) (Auto) 1.1 % (0.0-3.0) Basophils (%) (Auto) 1.1 % (0.0-2.0) Sodium Level 136 MMOL/L (136-145) Potassium Level 4.3 MMOL/L (3.5-5.1) Chloride Level 101 MMOL/L (98-107) Carbon Dioxide Level 35 MMOL/L (21-32) H Anion Gap 0 mmol/L (5-15) L Blood Urea Nitrogen 13 mg/dL (7-18) Creatinine 0.4 MG/DL (0.55-1.30) L Estimat Glomerular Filtration Rate mL/min (>60) Glucose Level 152 MG/DL (74-106) H Calcium Level 9.1 MG/DL (8.5-10.1) Current Medications Medications (Trade) Dose Ordered Sig/Rosetta Route PRN Reason Start Time Stop Time Status Last Admin Dose Admin Acetaminophen (Tylenol) 650 mg Q4H PRN GT Mild Pain/Temp > 100.5 02/09/18 16:00 03/10/18 15:59 02/18/18 14:48 Ascorbic Acid (Vitamin C) 500 mg DAILY GT 02/10/18 09:00 03/07/18 08:59 02/21/18 09:10 Clonidine HCl (Catapres Tab) 0.1 mg Q8H PRN GT SBP >160 02/09/18 17:00 03/09/18 16:59 02/09/18 17:31 Dextrose (Dextrose 50%) 25 ml STAT PRN IV Hypoglycemia 02/09/18 16:00 03/11/18 15:59 Dextrose (Dextrose 50%) 50 ml STAT PRN IV Hypoglycemia 02/09/18 16:00 03/11/18 15:59 Digoxin (Lanoxin) 0.125 mg DAILY GT 02/10/18 09:00 03/07/18 08:59 02/21/18 09:10 Diltiazem HCl (Cardizem) 30 mg EVERY 8 HOURS ORAL 02/10/18 22:00 03/12/18 21:59 02/21/18 14:16 Enoxaparin Sodium (Lovenox) 30 mg Q24H SUBQ 02/10/18 09:00 03/07/18 08:59 02/21/18 09:12 Famotidine (Pepcid) 20 mg DAILY GT 02/10/18 09:00 03/10/18 08:59 02/21/18 09:09 Insulin Aspart (NovoLOG) EVERY 6 HOURS SUBQ 02/09/18 18:00 03/07/18 06:29 02/21/18 12:26 Lorazepam (Ativan 2mg/ml 1ml) 1 mg Q4H PRN IV For Anxiety 02/21/18 00:00 02/28/18 00:00 02/21/18 14:25 Meropenem 1 gm/ Sodium Chloride 110 ml @ 220 mls/hr Q12HR@0600,1800 IVPB 02/20/18 18:00 02/25/18 17:59 02/21/18 05:04 Dom Hoffman M.D. Feb 21, 2018 14:39
[2018-02-21 16:00] VITALS: BP 139/73
[2018-02-21 20:00] VITALS: BP 137/81
[2018-02-22] VITALS (21 sets, daily range): BP systolic 97–148; BP diastolic 41–78
[2018-02-22] MEDS: NovoLOG Insulin Flexpen SUBQ SCH ×4 (00:32→17:37)
[2018-02-22 04:43] LABS: BASOPHILS % (AUTO) 0.5 % (0.0-2.0); EOSINOPHILS % (AUTO) 1.5 % (0.0-3.0); HEMATOCRIT 30.8 % (37.0-47.0); HEMOGLOBIN 9.7 G/DL (12.0-16.0); LYMPHOCYTES % (AUTO) 17.8 % (20.0-45.0); MEAN CORPUSCULAR VOLUME 85 FL (80-99); MONOCYTES % (AUTO) 4.3 % (1.0-10.0); NEUTROPHILS % (AUTO) 75.9 % (45.0-75.0); PLATELET COUNT 476 K/UL (150-450); RED CELL DISTRIBUTION WIDTH 16.2 % (11.6-14.8); WHITE BLOOD COUNT 16.2 K/UL (4.8-10.8)
[2018-02-22 04:55] LABS: ANION GAP 1 mmol/L (5-15); BLOOD UREA NITROGEN 14 mg/dL (7-18); CALCIUM 8.9 MG/DL (8.5-10.1); CARBON DIOXIDE 37 MMOL/L (21-32); CHLORIDE 102 MMOL/L (98-107); CREATININE 0.4 MG/DL (0.55-1.30); POTASSIUM 4.3 MMOL/L (3.5-5.1); SODIUM 140 MMOL/L (136-145)
--- NOTE | 2018-02-22 05:13 | Emergency Room Report ---
History of Present Illness General Chief Complaint: Fever Source: Medical Record, PMD Present Illness HPI This is an 82-year-old female who is currently admitted here for respiratory failure from healthcare associated aspiration pneumonia and sepsis. She is BiPAP dependent. I was called to stepdown unit for evaluation for respiratory distress and need for intubation. Unable to get any history from this patient. Per nursing staff, she is unable to wean off of BiPAP and has increasing work of breathing and decreasing mentation. Allergies: Coded Allergies: No Known Allergies (Verified , 03/10/07) Patient History Past Medical History: see triage record, old chart reviewed Past Surgical History: other Pertinent Family History: none Social History: Denies: smoking Now: No Immunizations: other Reviewed Nursing Documentation: PMH: Agreed; PSxH: Agreed Nursing Documentation-PMH Hx Cardiac Problems: Yes Hx Hypertension: Yes Hx COPD: Yes Hx Diabetes: Yes Hx Cancer: No Hx Neurological Problems: Yes - CVA Hx Cerebrovascular Accident: Yes - right side contracted Review of Systems All Other Systems: limited - segmented to patient condition Physical Exam Vital Signs Date Time Temp Pulse Resp B/P (MAP) Pulse Ox O2 Delivery O2 Flow Rate FiO2 02/18/18 07:56 97 Bi-pap 100 02/18/18 07:58 105 35 02/18/18 08:00 99.3 158/70 99.3 02/19/18 16:00 100.0 Sp02 EP Interpretation: abnormal General Appearance: severe distress, cachetic, lethargic, Chronically Ill ENT: dry mucus membranes Neck: other - stiff Respiratory: respiratory distress, decreased breath sounds, crackles, rhonchi Cardiovascular #1: normal inspection, regular rate, rhythm Gastrointestinal: normal bowel sounds Musculoskeletal: other - contracted Neurologic: other - withdraw to painful stimuli Skin: no rash Procedures Critical Care Time Critical Care Time Critical care is mandated in this patient who presented with acute respiratory failure requiring intubation. Patient require my urgent intervention to attenuate the risks of and respiratory collapse which may lead to cardiovascular collapse and . Critical care time is 35 minutes excluding any reportable procedure. Critical care time included evaluation, multiple reevaluation, looking at old charts, interpreting laboratory and diagnostic data , discussing case with patient and family and consultants, and charting. Intubation Intubation : Consent: Emergent Intubation Method: orotracheal Tube Size (cm): 7.0 Medications: Etomidate, Succinylcholine Breath Sounds after Intubation: equal Intubation Complications: no complications Post Intubation Xray: Yes Progress/Xray Impression: endotracheal tube in good position Attempts: One Patient Tolerated: Well Complications: None Medical Decision Making Diagnostic Impression: Primary Impression: Respiratory failure requiring intubation ER Course Patient with sepsis and respiratory failure now requiring intubation. Patient transferred ICU. Chest X-Ray Diagnostic Results Chest X-Ray Diagnostic Results : Chest X-Ray Ordered: Yes # of Views/Limited/Complete: 1 View Indication: Shortness of Breath EP Interpretation: Yes Interpretation: no pneumothorax, other - large left pleural effusion versus infiltrate. Endotracheal tube in good position Impression: Other - interval worsening of left sided infiltrate. s/p ETT Electronically Signed by: Vik Ghotra MD Last Vital Signs Date Time Temp Pulse Resp B/P (MAP) Pulse Ox O2 Delivery O2 Flow Rate FiO2 02/22/18 04:00 Bi-pap 02/22/18 04:00 90 02/22/18 03:03 85 34 88 02/22/18 00:00 97.1 148/73 (98) 97.1 02/20/18 16:00 15.0 Status: improved Disposition: ADMITTED INPATIENT Condition: Critical Referrals: NON PHYSICIAN (PCP) VIK GHOTRA M.D. Feb 22, 2018 05:13
[2018-02-22] MEDS ORDERED: NovoLOG Insulin Flexpen SUBQ SCH (06:00)
[2018-02-22] MEDS ORDERED: dilTIAZem HCl 30mg tab ORAL SCH (06:00)
[2018-02-22] MEDS ORDERED: Meropenem 1 GM in NS 110 ML IVPB SCH (06:00)
[2018-02-22] MEDS: Meropenem 1 GM in NS 110 ML IVPB SCH (06:37)
[2018-02-22] MEDS ORDERED: LORazepam Inj 2mg/ml 1ml IV PRN ×2 (08:00)
[2018-02-22] MEDS ORDERED: Acetaminophen 650mg/20.3ml GT PRN (08:00)
[2018-02-22] MEDS: Enoxaparin 30mg Inj SUBQ SCH (08:30)
[2018-02-22] MEDS: Digoxin 0.125mg tab GT SCH (08:31)
[2018-02-22] MEDS: Ascorbic Acid 500mg tab GT SCH (08:31)
--- NOTE | 2018-02-22 08:46 | Nephrology Progress Note ---
Assessment/Plan Assessment/Plan 1. Sepsis - Abx per ID mgmt. WBC trending up 2. Sacral Decub- Gen Surg 3. Hyponatremia- resolved. 4. Resp FL- could not oxygenate patient on BiPAP any longer. Patient intubated - appreciate Pulm assistance with vent mgmt 5. AFib- digoxin + cardizem 6. DVT prophylaxis- lovenox Awaiting court decision to convert patient to DNR/I comfort care Subjective Date patient seen: Feb 22, 2018 Time patient seen: 08:43 ROS Limited/Unobtainable: Yes Allergies: Coded Allergies: No Known Allergies (Verified , 03/10/07) All Systems: reviewed and negative except above Subjective Patient now intubated. Could not oxygenate patient on BiPAP adequately Objective Last 24 Hour Vital Signs Date Time Temp Pulse Resp B/P (MAP) Pulse Ox O2 Delivery O2 Flow Rate FiO2 02/22/18 08:31 109 02/22/18 07:28 107 31 100 02/22/18 07:03 95.3 98 30 107/54 (71) 77 95.3 02/22/18 06:00 90 28 97/57 (70) 69 02/22/18 06:00 88 97/57 02/22/18 05:49 84 32 100 02/22/18 05:09 81 15 100 02/22/18 05:00 80 35 118/54 (75) 82 02/22/18 04:45 Mechanical Ventilator 02/22/18 04:35 75 02/22/18 04:30 100 02/22/18 04:30 95.0 75 32 107/66 (80) 80 95.0 02/22/18 04:00 Bi-pap 02/22/18 04:00 90 02/22/18 03:03 85 34 88 Full Face 100 02/22/18 00:33 86 35 95 Full Face 100 02/22/18 00:00 90 02/22/18 00:00 97.1 73 31 148/73 (98) 93 97.1 02/22/18 00:00 Bi-pap 02/22/18 00:00 73 02/21/18 22:37 88 33 92 Full Face 100 02/21/18 22:13 89 137/81 02/21/18 20:42 89 38 91 Full Face 100 02/21/18 20:00 90 02/21/18 20:00 97.1 90 31 137/81 (99) 93 97.1 02/21/18 20:00 90 02/21/18 20:00 Bi-pap 02/21/18 19:14 87 34 98 Full Face 90 02/21/18 19:13 Bi-pap 02/21/18 19:13 99 Bi-pap 90 02/21/18 17:17 88 36 90 Full Face 90 02/21/18 16:00 90 02/21/18 16:00 91 02/21/18 16:00 Bi-pap 02/21/18 16:00 97.3 96 35 139/73 (95) 90 97.3 02/21/18 14:56 89 39 96 Full Face 100 02/21/18 14:16 93 150/81 02/21/18 12:58 86 35 90 Full Face 100 02/21/18 12:00 100 02/21/18 12:00 Bi-pap 02/21/18 12:00 97.3 91 35 146/82 (103) 73 97.3 02/21/18 12:00 93 02/21/18 10:37 55 41 93 Full Face 100 02/21/18 09:26 91 38 94 Full Face 60 02/21/18 09:10 88 Intake and Output 02/21/18 02/22/18 19:00 07:00 Intake Total 728.75 ml 670 ml Balance 728.75 ml 670 ml Free Water 30 ml 160 ml IV Total 118.75 ml 110 ml Tube Feeding 480 ml 400 ml Other 100 ml # Voids 2 2 # Bowel Movements 2 Laboratory Tests 02/22/18 03:05: White Blood Count 16.2H, Red Blood Count 3.60L, Hemoglobin 9.7L, Hematocrit 30.8L, Mean Corpuscular Volume 85, Mean Corpuscular Hemoglobin 26.9L, Mean Corpuscular Hemoglobin Concent 31.5L, Red Cell Distribution Width 16.2H, Platelet Count 476H, Mean Platelet Volume 8.0, Neutrophils (%) (Auto) 75.9H, Lymphocytes (%) (Auto) 17.8L, Monocytes (%) (Auto) 4.3, Eosinophils (%) (Auto) 1.5, Basophils (%) (Auto) 0.5, Sodium Level 140, Potassium Level 4.3, Chloride Level 102, Carbon Dioxide Level 37H, Anion Gap 1L, Blood Urea Nitrogen 14, Creatinine 0.4L, Estimat Glomerular Filtration Rate , Glucose Level 132H, Calcium Level 8.9 02/22/18 05:15: Arterial Blood pH 7.435, Arterial Blood Partial Pressure CO2 56.5*H, Arterial Blood Partial Pressure O2 < 46.0*L, Arterial Blood HCO3 37.1H, Arterial Blood Oxygen Saturation 59.2L, Arterial Blood Base Excess 11.2, Kang Test Positive Height (Feet): 4 Height (Inches): 0.00 Weight (Pounds): 102 General Appearance: no apparent distress, alert EENT: normal ENT inspection Neck: normal alignment, supple Cardiovascular: normal rate, regular rhythm Respiratory/Chest: rhonchi - bilaterally Abdomen: normal bowel sounds, non tender, soft Edema: no edema noted Arm (L), no edema noted Arm (R), no edema noted Leg (L), no edema noted Leg (R), no edema noted Pedal (L), no edema noted Pedal (R), no edema noted Generalized Jorge Graf M.D. Feb 22, 2018 08:46
[2018-02-22] MEDS ORDERED: Digoxin 0.125mg tab GT SCH (09:00)
[2018-02-22] MEDS ORDERED: Enoxaparin 30mg Inj SUBQ SCH (09:00)
[2018-02-22] MEDS ORDERED: Ascorbic Acid 500mg tab GT SCH (09:00)
[2018-02-22] MEDS: D5NS 1,000 ML IV SCH ×2 (09:44→21:52)
--- NOTE | 2018-02-22 10:22 | Pulmonology Progress Note ---
Assessment/Plan Assessment/Plan IMPRESSION: 1. Bilateral pneumonia. 2. Respiratory failure on BiPAP 3. Hypertension. 4. Diabetes mellitus. 5. Dehydration, hypernatremia 6. Tardive dyskinesia DISCUSSION: intubated by ER MD overnight and now in ICU on vent at 100% O2, sat 88% add peep L chest not expanding CXR report not available per ER note - increased L effusion and infiltrate will have US guided thoracentesis send fluid for studies Subjective ROS Limited/Unobtainable: Yes Allergies: Coded Allergies: No Known Allergies (Verified , 03/10/07) Objective Last 24 Hour Vital Signs Date Time Temp Pulse Resp B/P (MAP) Pulse Ox O2 Delivery O2 Flow Rate FiO2 02/22/18 09:21 106 29 100 02/22/18 08:31 109 02/22/18 08:00 Mechanical Ventilator 02/22/18 08:00 110 02/22/18 07:28 107 31 100 02/22/18 07:03 95.3 98 30 107/54 (71) 77 95.3 02/22/18 06:00 90 28 97/57 (70) 69 02/22/18 06:00 88 97/57 02/22/18 05:49 84 32 100 02/22/18 05:09 81 15 100 02/22/18 05:00 80 35 118/54 (75) 82 02/22/18 04:45 Mechanical Ventilator 02/22/18 04:35 75 02/22/18 04:30 100 02/22/18 04:30 95.0 75 32 107/66 (80) 80 95.0 02/22/18 04:00 Bi-pap 02/22/18 04:00 90 02/22/18 03:03 85 34 88 Full Face 100 02/22/18 00:33 86 35 95 Full Face 100 02/22/18 00:00 90 02/22/18 00:00 97.1 73 31 148/73 (98) 93 97.1 02/22/18 00:00 Bi-pap 02/22/18 00:00 73 02/21/18 22:37 88 33 92 Full Face 100 02/21/18 22:13 89 137/81 02/21/18 20:42 89 38 91 Full Face 100 02/21/18 20:00 90 02/21/18 20:00 97.1 90 31 137/81 (99) 93 97.1 02/21/18 20:00 90 02/21/18 20:00 Bi-pap 02/21/18 19:14 87 34 98 Full Face 90 02/21/18 19:13 Bi-pap 02/21/18 19:13 99 Bi-pap 90 02/21/18 17:17 88 36 90 Full Face 90 02/21/18 16:00 90 02/21/18 16:00 91 02/21/18 16:00 Bi-pap 02/21/18 16:00 97.3 96 35 139/73 (95) 90 97.3 02/21/18 14:56 89 39 96 Full Face 100 02/21/18 14:16 93 150/81 02/21/18 12:58 86 35 90 Full Face 100 02/21/18 12:00 100 02/21/18 12:00 Bi-pap 02/21/18 12:00 97.3 91 35 146/82 (103) 73 97.3 02/21/18 12:00 93 02/21/18 10:37 55 41 93 Full Face 100 Intake and Output 02/21/18 02/22/18 19:00 07:00 Intake Total 728.75 ml 670 ml Balance 728.75 ml 670 ml Free Water 30 ml 160 ml IV Total 118.75 ml 110 ml Tube Feeding 480 ml 400 ml Other 100 ml # Voids 2 2 # Bowel Movements 2 Objective on vent, tardive dyskinesia General Appearance: no acute distress, cachetic Respiratory/Chest: decreased breath sounds - left side, rhonchi, other - L chest not expanding Cardiovascular: tachycardia Laboratory Tests 02/22/18 03:05: White Blood Count 16.2H, Red Blood Count 3.60L, Hemoglobin 9.7L, Hematocrit 30.8L, Mean Corpuscular Volume 85, Mean Corpuscular Hemoglobin 26.9L, Mean Corpuscular Hemoglobin Concent 31.5L, Red Cell Distribution Width 16.2H, Platelet Count 476H, Mean Platelet Volume 8.0, Neutrophils (%) (Auto) 75.9H, Lymphocytes (%) (Auto) 17.8L, Monocytes (%) (Auto) 4.3, Eosinophils (%) (Auto) 1.5, Basophils (%) (Auto) 0.5, Sodium Level 140, Potassium Level 4.3, Chloride Level 102, Carbon Dioxide Level 37H, Anion Gap 1L, Blood Urea Nitrogen 14, Creatinine 0.4L, Estimat Glomerular Filtration Rate , Glucose Level 132H, Calcium Level 8.9 02/22/18 05:15: Arterial Blood pH 7.435, Arterial Blood Partial Pressure CO2 56.5*H, Arterial Blood Partial Pressure O2 < 46.0*L, Arterial Blood HCO3 37.1H, Arterial Blood Oxygen Saturation 59.2L, Arterial Blood Base Excess 11.2, Kang Test Positive Current Medications Medications (Trade) Dose Ordered Sig/Rosetta Route PRN Reason Start Time Stop Time Status Last Admin Dose Admin Acetaminophen (Tylenol) 650 mg Q4H PRN GT Mild Pain/Temp > 100.5 02/22/18 08:00 03/10/18 15:59 Ascorbic Acid (Vitamin C) 500 mg DAILY GT 02/22/18 09:00 03/07/18 08:59 02/22/18 08:31 Clonidine HCl (Catapres Tab) 0.1 mg Q8H PRN GT SBP >160 02/22/18 09:00 03/09/18 16:59 Dextrose (Dextrose 50%) 25 ml STAT PRN IV Hypoglycemia 02/22/18 16:00 03/11/18 15:59 Dextrose (Dextrose 50%) 50 ml STAT PRN IV Hypoglycemia 02/22/18 16:00 03/11/18 15:59 Dextrose/Sodium Chloride 1,000 ml @ 75 mls/hr [id number] IV 02/22/18 09:45 03/24/18 09:44 02/22/18 09:44 Digoxin (Lanoxin) 0.125 mg DAILY GT 02/22/18 09:00 03/07/18 08:59 02/22/18 08:31 Diltiazem HCl (Cardizem) 30 mg EVERY 8 HOURS ORAL 02/22/18 14:00 03/12/18 21:59 Enoxaparin Sodium (Lovenox) 30 mg Q24H SUBQ 02/22/18 09:00 03/07/18 08:59 02/22/18 08:30 Famotidine (Pepcid) 20 mg DAILY GT 02/22/18 09:00 03/10/18 08:59 02/22/18 08:31 Insulin Aspart (NovoLOG) EVERY 6 HOURS SUBQ 02/22/18 06:30 03/07/18 06:29 02/22/18 06:41 Lorazepam (Ativan 2mg/ml 1ml) 1 mg Q4H PRN IV For Anxiety 02/22/18 08:00 02/28/18 00:00 Meropenem 1 gm/ Sodium Chloride 110 ml @ 220 mls/hr Q12HR@0600,1800 IVPB 02/22/18 18:00 02/25/18 17:59 02/22/18 06:37 Rashawn Vang MD Feb 22, 2018 10:22
--- NOTE | 2018-02-22 11:31 | Diagnostic Imaging Report ---
Indication: Dyspnea Comparison: 714 A single view chest radiograph was obtained. Findings: Interval atelectasis of the left lung demonstrated with volume loss and near complete opacification. Associated pleural effusion not excluded. Other findings unchanged. Suspect interstitial edema within the lungs. Endotracheal tube is in good position. IMPRESSION: Endotracheal tube in good position. Interval atelectasis of the left lung. Pulmonary edema
[2018-02-22] MEDS: dilTIAZem HCl 30mg tab ORAL SCH ×2 (14:00→21:52)
--- NOTE | 2018-02-22 15:24 | Cardiac Electrophysiology PN ---
Assessment/Plan Assessment/Plan 1. Paroxysmal atrial fibrillation. In SR on digoxin 0.125 mg daily and Cardizem 30 tid. Dig level in AM Off anticoagulation. Echo Nl EF. 2. Hypertension. On Cardizem 30 tid 3. Respiratory failure, on Vent now in ICU 4. Diabetes, on insulin. 5. Dementia. 6. Dysphagia, status post PEG 7. Sacral decubitus stage III. FU by Dr. Austin. 8. CVA with aphasia and contractures. DW RN Subjective Subjective Intubated and brought to ICU. Off pressors. Objective Last 24 Hour Vital Signs Date Time Temp Pulse Resp B/P (MAP) Pulse Ox O2 Delivery O2 Flow Rate FiO2 02/22/18 15:00 110 38 115/71 (86) 96 02/22/18 14:55 108 32 100 02/22/18 14:00 116 32 121/69 (86) 96 02/22/18 14:00 115 120/74 02/22/18 13:00 112 30 120/74 (89) 93 02/22/18 12:42 116 36 100 02/22/18 12:00 100 02/22/18 12:00 108 02/22/18 12:00 97.8 111 16 114/54 (74) 92 97.8 02/22/18 12:00 Mechanical Ventilator 02/22/18 11:18 115 34 100 02/22/18 11:00 110 24 119/60 (79) 91 02/22/18 10:00 104 27 109/60 (76) 88 02/22/18 09:21 106 29 100 02/22/18 09:00 90 30 104/52 (69) 89 02/22/18 08:31 109 02/22/18 08:00 97.2 74 17 104/64 (77) 94 97.2 02/22/18 08:00 Mechanical Ventilator 02/22/18 08:00 110 02/22/18 07:28 107 31 100 02/22/18 07:03 95.3 98 30 107/54 (71) 77 95.3 02/22/18 06:00 90 28 97/57 (70) 69 02/22/18 06:00 88 97/57 02/22/18 05:49 84 32 100 02/22/18 05:09 81 15 100 02/22/18 05:00 80 35 118/54 (75) 82 02/22/18 04:45 Mechanical Ventilator 02/22/18 04:35 75 02/22/18 04:30 100 02/22/18 04:30 95.0 75 32 107/66 (80) 80 95.0 02/22/18 04:00 Bi-pap 02/22/18 04:00 90 02/22/18 03:03 85 34 88 Full Face 100 02/22/18 00:33 86 35 95 Full Face 100 02/22/18 00:00 90 02/22/18 00:00 97.1 73 31 148/73 (98) 93 97.1 02/22/18 00:00 Bi-pap 02/22/18 00:00 73 02/21/18 22:37 88 33 92 Full Face 100 02/21/18 22:13 89 137/81 02/21/18 20:42 89 38 91 Full Face 100 02/21/18 20:00 90 02/21/18 20:00 97.1 90 31 137/81 (99) 93 97.1 02/21/18 20:00 90 02/21/18 20:00 Bi-pap 02/21/18 19:14 87 34 98 Full Face 90 02/21/18 19:13 Bi-pap 02/21/18 19:13 99 Bi-pap 90 02/21/18 17:17 88 36 90 Full Face 90 02/21/18 16:00 90 02/21/18 16:00 91 02/21/18 16:00 Bi-pap 02/21/18 16:00 97.3 96 35 139/73 (95) 90 97.3 Intake and Output 02/21/18 02/22/18 19:00 07:00 Intake Total 728.75 ml 670 ml Balance 728.75 ml 670 ml Free Water 30 ml 160 ml IV Total 118.75 ml 110 ml Tube Feeding 480 ml 400 ml Other 100 ml # Voids 2 2 # Bowel Movements 2 Laboratory Tests Test 02/22/18 03:05 02/22/18 05:15 White Blood Count 16.2 K/UL (4.8-10.8) H Red Blood Count 3.60 M/UL (4.20-5.40) L Hemoglobin 9.7 G/DL (12.0-16.0) L Hematocrit 30.8 % (37.0-47.0) L Mean Corpuscular Volume 85 FL (80-99) Mean Corpuscular Hemoglobin 26.9 PG (27.0-31.0) L Mean Corpuscular Hemoglobin Concent 31.5 G/DL (32.0-36.0) L Red Cell Distribution Width 16.2 % (11.6-14.8) H Platelet Count 476 K/UL (150-450) H Mean Platelet Volume 8.0 FL (6.5-10.1) Neutrophils (%) (Auto) 75.9 % (45.0-75.0) H Lymphocytes (%) (Auto) 17.8 % (20.0-45.0) L Monocytes (%) (Auto) 4.3 % (1.0-10.0) Eosinophils (%) (Auto) 1.5 % (0.0-3.0) Basophils (%) (Auto) 0.5 % (0.0-2.0) Sodium Level 140 MMOL/L (136-145) Potassium Level 4.3 MMOL/L (3.5-5.1) Chloride Level 102 MMOL/L (98-107) Carbon Dioxide Level 37 MMOL/L (21-32) H Anion Gap 1 mmol/L (5-15) L Blood Urea Nitrogen 14 mg/dL (7-18) Creatinine 0.4 MG/DL (0.55-1.30) L Estimat Glomerular Filtration Rate mL/min (>60) Glucose Level 132 MG/DL (74-106) H Calcium Level 8.9 MG/DL (8.5-10.1) Arterial Blood pH 7.435 (7.350-7.450) Arterial Blood Partial Pressure CO2 56.5 mmHg (35.0-45.0) *H Arterial Blood Partial Pressure O2 < 46.0 mmHg (75.0-100.0) Arterial Blood HCO3 37.1 mmol/L (22.0-26.0) H Arterial Blood Oxygen Saturation 59.2 % (92.0-98.0) L Arterial Blood Base Excess 11.2 Kang Test Positive Objective HEAD AND NECK: No JVD. On Oxygen mask LUNGS: Coarse rhonchi CARDIOVASCULAR: Tachy S1 and S2 with no murmur. ABDOMEN: Soft and status post G-tube. EXTREMITIES: She has sacral decubitus. Emmanuel Edgar MD Feb 22, 2018 15:24
--- NOTE | 2018-02-22 16:39 | Infectious Diseases Prog Note ---
Assessment/Plan Problems: (1) HCAP (healthcare-associated pneumonia) Assessment & Plan: with left lung total white out , suspect mucous plug, complicated with respiratory failure, S/P intubation . will send sputum culture , add vancomycin empirically , continue meropenem empiric coverage , monitor CXR . pulmonary is following. 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 continue local wound care and dressing changes as per hospital protocol . was evaluated by general surgery (3) Sepsis Assessment & Plan: will repeat blood culture today to rule out (4) Acute respiratory failure Assessment & Plan: with hypoxemia , with total left lung white out , suspect mucous plug, pulmonary is following, monitor CXR and ABG . she may need tracheostomy Subjective ROS Limited/Unobtainable: Yes Allergies: Coded Allergies: No Known Allergies (Verified , 03/10/07) Subjective she was intubated and started on mechanical ventilation , and transferred to ICU , she is comfortable , no fever or chills , no significant secretions . Objective Vital Signs Last 24 Hour Vital Signs Date Time Temp Pulse Resp B/P (MAP) Pulse Ox O2 Delivery O2 Flow Rate FiO2 02/22/18 16:00 97.2 107 33 113/63 (80) 97 97.2 02/22/18 16:00 Mechanical Ventilator 02/22/18 16:00 100 02/22/18 16:00 103 02/22/18 15:00 110 38 115/71 (86) 96 02/22/18 14:55 108 32 100 02/22/18 14:00 116 32 121/69 (86) 96 02/22/18 14:00 115 120/74 02/22/18 13:00 112 30 120/74 (89) 93 02/22/18 12:42 116 36 100 02/22/18 12:00 100 02/22/18 12:00 108 02/22/18 12:00 97.8 111 16 114/54 (74) 92 97.8 02/22/18 12:00 Mechanical Ventilator 02/22/18 11:18 115 34 100 02/22/18 11:00 110 24 119/60 (79) 91 02/22/18 10:00 104 27 109/60 (76) 88 02/22/18 09:21 106 29 100 7/9/18 09:00 90 30 104/52 (69) 89 02/22/18 08:31 109 02/22/18 08:00 97.2 74 17 104/64 (77) 94 97.2 02/22/18 08:00 Mechanical Ventilator 02/22/18 08:00 110 02/22/18 07:28 107 31 100 02/22/18 07:03 95.3 98 30 107/54 (71) 77 95.3 02/22/18 06:00 90 28 97/57 (70) 69 02/22/18 06:00 88 97/57 02/22/18 05:49 84 32 100 02/22/18 05:09 81 15 100 02/22/18 05:00 80 35 118/54 (75) 82 02/22/18 04:45 Mechanical Ventilator 02/22/18 04:35 75 02/22/18 04:30 100 02/22/18 04:30 95.0 75 32 107/66 (80) 80 95.0 02/22/18 04:00 Bi-pap 02/22/18 04:00 90 02/22/18 03:03 85 34 88 Full Face 100 02/22/18 00:33 86 35 95 Full Face 100 02/22/18 00:00 90 02/22/18 00:00 97.1 73 31 148/73 (98) 93 97.1 02/22/18 00:00 Bi-pap 02/22/18 00:00 73 02/21/18 22:37 88 33 92 Full Face 100 02/21/18 22:13 89 137/81 02/21/18 20:42 89 38 91 Full Face 100 02/21/18 20:00 90 02/21/18 20:00 97.1 90 31 137/81 (99) 93 97.1 02/21/18 20:00 90 02/21/18 20:00 Bi-pap 02/21/18 19:14 87 34 98 Full Face 90 02/21/18 19:13 Bi-pap 02/21/18 19:13 99 Bi-pap 90 02/21/18 17:17 88 36 90 Full Face 90 Height (Feet): 4 Height (Inches): 0.00 Weight (Pounds): 102 General Appearance: WD/WN, no acute distress HEENT: normocephalic, atraumatic, anicteric, mucous membranes moist Respiratory/Chest: chest wall non-tender, lungs clear, normal breath sounds, no respiratory distress, no accessory muscle use Cardiovascular: normal peripheral pulses, normal rate, regular rhythm, no gallop/murmur, no JVD Abdomen: normal bowel sounds, soft, non tender, no organomegaly, non distended , no mass, no scars Extremities: no cyanosis, no clubbing Skin: no rash, no lesions, ulcers Neurologic/Psychiatric: unresponsiveness Laboratory Tests Test 02/22/18 03:05 02/22/18 05:15 02/22/18 15:30 White Blood Count 16.2 K/UL (4.8-10.8) H Red Blood Count 3.60 M/UL (4.20-5.40) L Hemoglobin 9.7 G/DL (12.0-16.0) L Hematocrit 30.8 % (37.0-47.0) L Mean Corpuscular Volume 85 FL (80-99) Mean Corpuscular Hemoglobin 26.9 PG (27.0-31.0) L Mean Corpuscular Hemoglobin Concent 31.5 G/DL (32.0-36.0) L Red Cell Distribution Width 16.2 % (11.6-14.8) H Platelet Count 476 K/UL (150-450) H Mean Platelet Volume 8.0 FL (6.5-10.1) Neutrophils (%) (Auto) 75.9 % (45.0-75.0) H Lymphocytes (%) (Auto) 17.8 % (20.0-45.0) L Monocytes (%) (Auto) 4.3 % (1.0-10.0) Eosinophils (%) (Auto) 1.5 % (0.0-3.0) Basophils (%) (Auto) 0.5 % (0.0-2.0) Sodium Level 140 MMOL/L (136-145) Potassium Level 4.3 MMOL/L (3.5-5.1) Chloride Level 102 MMOL/L (98-107) Carbon Dioxide Level 37 MMOL/L (21-32) H Anion Gap 1 mmol/L (5-15) L Blood Urea Nitrogen 14 mg/dL (7-18) Creatinine 0.4 MG/DL (0.55-1.30) L Estimat Glomerular Filtration Rate mL/min (>60) Glucose Level 132 MG/DL (74-106) H Calcium Level 8.9 MG/DL (8.5-10.1) Arterial Blood pH 7.435 (7.350-7.450) Arterial Blood Partial Pressure CO2 56.5 mmHg (35.0-45.0) *H Arterial Blood Partial Pressure O2 < 46.0 mmHg (75.0-100.0) Arterial Blood HCO3 37.1 mmol/L (22.0-26.0) H Arterial Blood Oxygen Saturation 59.2 % (92.0-98.0) L Arterial Blood Base Excess 11.2 Kang Test Positive Prothrombin Time Pending Prothromb Time International Ratio Pending Activated Partial Thromboplast Time Pending Current Medications Medications (Trade) Dose Ordered Sig/Rosetta Route PRN Reason Start Time Stop Time Status Last Admin Dose Admin Acetaminophen (Tylenol) 650 mg Q4H PRN GT Mild Pain/Temp > 100.5 02/22/18 08:00 03/10/18 15:59 Ascorbic Acid (Vitamin C) 500 mg DAILY GT 02/22/18 09:00 03/07/18 08:59 02/22/18 08:31 Clonidine HCl (Catapres Tab) 0.1 mg Q8H PRN GT SBP >160 02/22/18 09:00 03/09/18 16:59 Dextrose (Dextrose 50%) 25 ml STAT PRN IV Hypoglycemia 02/22/18 16:00 03/11/18 15:59 Dextrose (Dextrose 50%) 50 ml STAT PRN IV Hypoglycemia 02/22/18 16:00 03/11/18 15:59 Dextrose/Sodium Chloride 1,000 ml @ 75 mls/hr [id number] IV 02/22/18 09:45 03/24/18 09:44 02/22/18 09:44 Digoxin (Lanoxin) 0.125 mg DAILY GT 02/22/18 09:00 03/07/18 08:59 02/22/18 08:31 Diltiazem HCl (Cardizem) 30 mg EVERY 8 HOURS ORAL 02/22/18 14:00 03/12/18 21:59 02/22/18 14:00 Enoxaparin Sodium (Lovenox) 30 mg Q24H SUBQ 02/22/18 09:00 03/07/18 08:59 02/22/18 08:30 Famotidine (Pepcid) 20 mg DAILY GT 02/22/18 09:00 03/10/18 08:59 02/22/18 08:31 Insulin Aspart (NovoLOG) EVERY 6 HOURS SUBQ 02/22/18 06:30 03/07/18 06:29 02/22/18 06:41 Lorazepam (Ativan 2mg/ml 1ml) 1 mg Q4H PRN IV For Anxiety 02/22/18 08:00 02/28/18 00:00 Meropenem 1 gm/ Sodium Chloride 110 ml @ 220 mls/hr Q12HR@0600,1800 IVPB 02/22/18 18:00 02/25/18 17:59 02/22/18 06:37 Dom Hoffman M.D. Feb 22, 2018 16:39
[2018-02-22] MEDS: Vancomycin 750mg/NS 250ml IVPB SCH (17:43)
[2018-02-23] VITALS (25 sets, daily range): BP systolic 88–149; BP diastolic 45–70
[2018-02-23] MEDS: NovoLOG Insulin Flexpen SUBQ SCH ×4 (06:00→17:54)
[2018-02-23] MEDS: dilTIAZem HCl 30mg tab ORAL SCH ×3 (06:03→22:40)
[2018-02-23] MEDS: Meropenem 1 GM in NS 110 ML IVPB SCH ×2 (06:04→17:54)
[2018-02-23 06:34] LABS: BASOPHILS % (AUTO) 0.7 % (0.0-2.0); EOSINOPHILS % (AUTO) 0.4 % (0.0-3.0); HEMATOCRIT 26.8 % (37.0-47.0); HEMOGLOBIN 8.5 G/DL (12.0-16.0); LYMPHOCYTES % (AUTO) 13.5 % (20.0-45.0); MEAN CORPUSCULAR VOLUME 86 FL (80-99); MONOCYTES % (AUTO) 4.8 % (1.0-10.0); NEUTROPHILS % (AUTO) 80.6 % (45.0-75.0); PLATELET COUNT 422 K/UL (150-450); RED BLOOD COUNT 3.11 M/UL (4.20-5.40); RED CELL DISTRIBUTION WIDTH 16.4 % (11.6-14.8); WHITE BLOOD COUNT 14.2 K/UL (4.8-10.8)
[2018-02-23 06:43] LABS: ANION GAP 2 mmol/L (5-15); BLOOD UREA NITROGEN 14 mg/dL (7-18); CALCIUM 8.1 MG/DL (8.5-10.1); CARBON DIOXIDE 35 MMOL/L (21-32); CHLORIDE 107 MMOL/L (98-107); CREATININE 0.4 MG/DL (0.55-1.30); POTASSIUM 3.9 MMOL/L (3.5-5.1); SODIUM 144 MMOL/L (136-145)
--- NOTE | 2018-02-23 07:58 | Nephrology Progress Note ---
Assessment/Plan Assessment/Plan 1. Sepsis - Abx per ID mgmt. 2. Sacral Decub- Gen Surg. 3. Hyponatremia- resolved. 4. Resp FL- Patient intubated - appreciate Pulm assistance with vent mgmt. Poss thoracentesis 5. AFib- digoxin + cardizem 6. DVT prophylaxis- lovenox Subjective Date patient seen: Feb 23, 2018 Time patient seen: 07:55 ROS Limited/Unobtainable: Yes Allergies: Coded Allergies: No Known Allergies (Verified , 03/10/07) Subjective Patient intubated. Thoracentesis pending Objective Last 24 Hour Vital Signs Date Time Temp Pulse Resp B/P (MAP) Pulse Ox O2 Delivery O2 Flow Rate FiO2 02/23/18 06:54 0 24 90 02/23/18 06:03 101 94/70 02/23/18 06:00 98 25 94/70 (78) 95 02/23/18 05:15 107 31 70 02/23/18 05:00 107 23 121/66 (84) 94 02/23/18 04:00 98.7 106 23 149/70 (96) 98 98.7 02/23/18 04:00 85 02/23/18 04:00 Mechanical Ventilator 02/23/18 04:00 106 02/23/18 03:20 98 25 70 02/23/18 03:00 98 23 110/50 (70) 100 02/23/18 02:00 100 27 113/64 (80) 98 02/23/18 01:18 99 26 80 02/23/18 01:00 104 19 96/56 (69) 99 02/23/18 00:00 104 02/23/18 00:00 90 02/23/18 00:00 Mechanical Ventilator 02/23/18 00:00 99.2 100 25 103/62 (76) 100 99.2 02/22/18 23:00 101 25 97/54 (68) 100 02/22/18 22:45 103 24 90 02/22/18 22:00 101 22 104/60 (75) 100 02/22/18 21:52 112 98/50 02/22/18 21:18 104 31 95 02/22/18 21:00 108 24 98/50 (66) 99 02/22/18 20:00 113 33 103/46 (65) 95 02/22/18 20:00 100 02/22/18 20:00 Mechanical Ventilator 02/22/18 20:00 113 02/22/18 19:23 115 31 100 02/22/18 19:00 98.9 113 35 131/72 (91) 95 98.9 02/22/18 18:00 116 30 135/78 (97) 93 02/22/18 17:00 100 13 99/63 (75) 93 02/22/18 17:00 102 27 100 02/22/18 16:00 97.2 107 33 113/63 (80) 97 97.2 02/22/18 16:00 Mechanical Ventilator 02/22/18 16:00 100 02/22/18 16:00 103 02/22/18 15:00 110 38 115/71 (86) 96 02/22/18 14:55 108 32 100 02/22/18 14:00 116 32 121/69 (86) 96 02/22/18 14:00 115 120/74 02/22/18 13:00 112 30 120/74 (89) 93 02/22/18 12:42 116 36 100 02/22/18 12:00 100 02/22/18 12:00 108 02/22/18 12:00 97.8 111 16 114/54 (74) 92 97.8 02/22/18 12:00 Mechanical Ventilator 02/22/18 11:18 115 34 100 02/22/18 11:00 110 24 119/60 (79) 91 02/22/18 10:00 104 27 109/60 (76) 88 02/22/18 09:21 106 29 100 02/22/18 09:00 90 30 104/52 (69) 89 02/22/18 08:31 109 02/22/18 08:00 97.2 74 17 104/64 (77) 94 97.2 02/22/18 08:00 Mechanical Ventilator 02/22/18 08:00 110 Intake and Output 02/22/18 02/23/18 19:00 07:00 Intake Total 883.36752 ml 859.166 ml Output Total 450 ml 400 ml Balance 433.97394 ml 459.166 ml IV Total 883.57153 ml 829.166 ml Tube Feeding 0 ml 0 ml Other 30 ml Output Urine Total 450 ml 400 ml # Bowel Movements 3 3 Laboratory Tests 02/22/18 15:30: Prothrombin Time 10.3, Prothromb Time International Ratio 1.0, Activated Partial Thromboplast Time 30 02/23/18 06:00: White Blood Count 14.2H, Red Blood Count 3.11L, Hemoglobin 8.5L, Hematocrit 26.8L, Mean Corpuscular Volume 86, Mean Corpuscular Hemoglobin 27.3, Mean Corpuscular Hemoglobin Concent 31.7L, Red Cell Distribution Width 16.4H, Platelet Count 422, Mean Platelet Volume 7.3, Neutrophils (%) (Auto) 80.6H, Lymphocytes (%) (Auto) 13.5L, Monocytes (%) (Auto) 4.8, Eosinophils (%) (Auto) 0.4, Basophils (%) (Auto) 0.7, Sodium Level 144, Potassium Level 3.9, Chloride Level 107, Carbon Dioxide Level 35H, Anion Gap 2L, Blood Urea Nitrogen 14, Creatinine 0.4L, Estimat Glomerular Filtration Rate , Glucose Level 105, Calcium Level 8.1L Height (Feet): 4 Height (Inches): 0.00 Weight (Pounds): 113 General Appearance: no apparent distress EENT: normal ENT inspection Neck: normal alignment, supple Cardiovascular: normal rate, regular rhythm Respiratory/Chest: normal breath sounds, rhonchi - bilaterally Abdomen: non tender, soft Edema: no edema noted Arm (L), no edema noted Arm (R), no edema noted Leg (L), no edema noted Leg (R), no edema noted Pedal (L), no edema noted Pedal (R), no edema noted Generalized Jorge Graf M.D. Feb 23, 2018 07:58
[2018-02-23] MEDS: Enoxaparin 30mg Inj SUBQ SCH (09:00)
[2018-02-23] MEDS: Digoxin 0.125mg tab GT SCH (10:01)
[2018-02-23] MEDS: Ascorbic Acid 500mg tab GT SCH (10:01)
[2018-02-23] MEDS: D5NS 1,000 ML IV SCH (14:49)
--- NOTE | 2018-02-23 16:26 | Infectious Diseases Prog Note ---
Assessment/Plan Problems: (1) HCAP (healthcare-associated pneumonia) Assessment & Plan: with left lung total white out , suspect mucous plug, complicated with respiratory failure, S/P intubation . await sputum culture , continue vancomycin and meropenem empiric coverage , monitor CXR . pulmonary is following. 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 continue local wound care and dressing changes as per hospital protocol . was evaluated by general surgery (3) Sepsis Assessment & Plan: will repeat blood culture today to rule out (4) Acute respiratory failure Assessment & Plan: with hypoxemia , with total left lung white out , suspect mucous plug, pulmonary is following, monitor CXR and ABG . she may need tracheostomy Subjective ROS Limited/Unobtainable: Yes Allergies: Coded Allergies: No Known Allergies (Verified , 03/10/07) Subjective she is still intubated on mechanical ventilation , in ICU, she is comfortable , no fever or chills , had significant secretions with mucous . Objective Vital Signs Last 24 Hour Vital Signs Date Time Temp Pulse Resp B/P (MAP) Pulse Ox O2 Delivery O2 Flow Rate FiO2 02/23/18 16:13 81 19 101/49 (66) 100 02/23/18 16:00 84 28 101/49 (66) 100 02/23/18 16:00 81 02/23/18 16:00 Mechanical Ventilator 02/23/18 15:12 84 101/49 02/23/18 15:00 84 28 101/49 (66) 100 02/23/18 15:00 60 02/23/18 14:52 90 15 60 02/23/18 14:00 88 22 97/45 (62) 100 02/23/18 13:00 87 30 96/55 (69) 100 02/23/18 12:33 91 19 65 02/23/18 12:00 98.6 104 26 116/47 (70) 98 98.6 02/23/18 12:00 94 02/23/18 12:00 Mechanical Ventilator 02/23/18 11:10 65 02/23/18 11:00 96 26 114/60 (78) 98 02/23/18 10:50 97 18 65 02/23/18 10:01 92 02/23/18 10:00 91 21 107/58 (74) 98 02/23/18 09:40 75 02/23/18 09:24 93 19 75 02/23/18 09:00 89 24 113/58 (76) 98 02/23/18 08:00 Mechanical Ventilator 02/23/18 08:00 99.6 90 25 106/56 (73) 98 99.6 02/23/18 08:00 92 02/23/18 08:00 90 02/23/18 07:00 87 21 89/61 (70) 96 02/23/18 06:54 101 24 90 02/23/18 06:03 101 94/70 02/23/18 06:00 98 25 94/70 (78) 95 02/23/18 05:15 107 31 70 02/23/18 05:00 107 23 121/66 (84) 94 02/23/18 04:00 98.7 106 23 149/70 (96) 98 98.7 02/23/18 04:00 85 02/23/18 04:00 Mechanical Ventilator 02/23/18 04:00 106 02/23/18 03:20 98 25 70 02/23/18 03:00 98 23 110/50 (70) 100 02/23/18 02:00 100 27 113/64 (80) 98 02/23/18 01:18 99 26 80 02/23/18 01:00 104 19 96/56 (69) 99 02/23/18 00:00 104 02/23/18 00:00 90 02/23/18 00:00 Mechanical Ventilator 02/23/18 00:00 99.2 100 25 103/62 (76) 100 99.2 02/22/18 23:00 101 25 97/54 (68) 100 02/22/18 22:45 103 24 90 02/22/18 22:00 101 22 104/60 (75) 100 02/22/18 21:52 112 98/50 02/22/18 21:18 104 31 95 02/22/18 21:00 108 24 98/50 (66) 99 02/22/18 20:00 113 33 103/46 (65) 95 02/22/18 20:00 100 02/22/18 20:00 Mechanical Ventilator 02/22/18 20:00 113 02/22/18 19:23 115 31 100 02/22/18 19:00 98.9 113 35 131/72 (91) 95 98.9 02/22/18 18:00 116 30 135/78 (97) 93 02/22/18 17:00 100 13 99/63 (75) 93 02/22/18 17:00 102 27 100 Height (Feet): 4 Height (Inches): 0.00 Weight (Pounds): 113 General Appearance: WD/WN, no acute distress, cachetic HEENT: normocephalic, atraumatic, anicteric, no JVD, other - intubated Respiratory/Chest: chest wall non-tender, normal breath sounds, no respiratory distress, no accessory muscle use, decreased breath sounds Cardiovascular: normal peripheral pulses, normal rate, regular rhythm, no gallop/murmur, no JVD Abdomen: normal bowel sounds, soft, non tender, no organomegaly, non distended , no mass, no scars Genitourinary: normal external genitalia Extremities: no cyanosis, no clubbing Skin: no rash, no lesions, no ulcers Neurologic/Psychiatric: alert Laboratory Tests Test 02/23/18 06:00 White Blood Count 14.2 K/UL (4.8-10.8) H Red Blood Count 3.11 M/UL (4.20-5.40) L Hemoglobin 8.5 G/DL (12.0-16.0) L Hematocrit 26.8 % (37.0-47.0) L Mean Corpuscular Volume 86 FL (80-99) Mean Corpuscular Hemoglobin 27.3 PG (27.0-31.0) Mean Corpuscular Hemoglobin Concent 31.7 G/DL (32.0-36.0) L Red Cell Distribution Width 16.4 % (11.6-14.8) H Platelet Count 422 K/UL (150-450) Mean Platelet Volume 7.3 FL (6.5-10.1) Neutrophils (%) (Auto) 80.6 % (45.0-75.0) H Lymphocytes (%) (Auto) 13.5 % (20.0-45.0) L Monocytes (%) (Auto) 4.8 % (1.0-10.0) Eosinophils (%) (Auto) 0.4 % (0.0-3.0) Basophils (%) (Auto) 0.7 % (0.0-2.0) Sodium Level 144 MMOL/L (136-145) Potassium Level 3.9 MMOL/L (3.5-5.1) Chloride Level 107 MMOL/L (98-107) Carbon Dioxide Level 35 MMOL/L (21-32) H Anion Gap 2 mmol/L (5-15) L Blood Urea Nitrogen 14 mg/dL (7-18) Creatinine 0.4 MG/DL (0.55-1.30) L Estimat Glomerular Filtration Rate mL/min (>60) Glucose Level 105 MG/DL (74-106) Calcium Level 8.1 MG/DL (8.5-10.1) L Current Medications Medications (Trade) Dose Ordered Sig/Rosetta Route PRN Reason Start Time Stop Time Status Last Admin Dose Admin Acetaminophen (Tylenol) 650 mg Q4H PRN GT Mild Pain/Temp > 100.5 02/22/18 08:00 03/10/18 15:59 Ascorbic Acid (Vitamin C) 500 mg DAILY GT 02/22/18 09:00 03/07/18 08:59 02/23/18 10:01 Clonidine HCl (Catapres Tab) 0.1 mg Q8H PRN GT SBP >160 02/22/18 09:00 03/09/18 16:59 Dextrose (Dextrose 50%) 25 ml STAT PRN IV Hypoglycemia 02/22/18 16:00 03/11/18 15:59 Dextrose (Dextrose 50%) 50 ml STAT PRN IV Hypoglycemia 02/22/18 16:00 03/11/18 15:59 Dextrose/Sodium Chloride 1,000 ml @ 75 mls/hr [id number] IV 02/22/18 09:45 03/24/18 09:44 02/23/18 14:49 Digoxin (Lanoxin) 0.125 mg DAILY GT 02/22/18 09:00 03/07/18 08:59 02/23/18 10:01 Diltiazem HCl (Cardizem) 30 mg EVERY 8 HOURS ORAL 02/22/18 14:00 03/12/18 21:59 02/23/18 15:12 Enoxaparin Sodium (Lovenox) 30 mg Q24H SUBQ 02/22/18 09:00 03/07/18 08:59 02/22/18 08:30 Famotidine (Pepcid) 20 mg DAILY GT 02/22/18 09:00 03/10/18 08:59 02/23/18 10:01 Insulin Aspart (NovoLOG) EVERY 6 HOURS SUBQ 02/22/18 06:30 03/07/18 06:29 02/22/18 06:41 Lorazepam (Ativan 2mg/ml 1ml) 1 mg Q4H PRN IV For Anxiety 02/22/18 08:00 02/28/18 00:00 Meropenem 1 gm/ Sodium Chloride 110 ml @ 220 mls/hr Q12HR@0600,1800 IVPB 02/22/18 18:00 02/25/18 17:59 02/23/18 06:04 Vancomycin HCl (Vanco rx to dose) 1 ea DAILY PRN MISC Per rx protocol 02/22/18 16:45 03/24/18 16:44 Vancomycin/Sodium Chloride 250 ml @ 166.667 mls/hr Q24H IVPB 02/22/18 17:00 02/27/18 16:59 02/22/18 17:43 Dom Hoffman M.D. Feb 23, 2018 16:26
--- NOTE | 2018-02-23 17:14 | Cardiac Electrophysiology PN ---
Assessment/Plan Assessment/Plan 1. Paroxysmal atrial fibrillation. In SR on digoxin 0.125 mg daily and Cardizem 30 tid. Off anticoagulation. Echo Nl EF. 2. Hypertension. On Cardizem 30 tid 3. Respiratory failure, on Vent now in ICU 4. Diabetes, on insulin. 5. Dementia. 6. Dysphagia, status post PEG 7. Sacral decubitus stage III. FU by Dr. Austin. 8. CVA with aphasia and contractures. DW RN Subjective Subjective In ICU on the vent. Off pressors. Objective Last 24 Hour Vital Signs Date Time Temp Pulse Resp B/P (MAP) Pulse Ox O2 Delivery O2 Flow Rate FiO2 02/23/18 17:09 79 19 60 02/23/18 17:00 99.3 80 21 98/50 (66) 100 99.3 02/23/18 16:13 81 19 101/49 (66) 100 02/23/18 16:00 84 28 101/49 (66) 100 02/23/18 16:00 81 02/23/18 16:00 Mechanical Ventilator 02/23/18 15:12 84 101/49 02/23/18 15:00 84 28 101/49 (66) 100 02/23/18 15:00 60 02/23/18 14:52 90 15 60 02/23/18 14:00 88 22 97/45 (62) 100 02/23/18 13:00 87 30 96/55 (69) 100 02/23/18 12:33 91 19 65 02/23/18 12:00 98.6 104 26 116/47 (70) 98 98.6 02/23/18 12:00 94 02/23/18 12:00 Mechanical Ventilator 02/23/18 11:10 65 02/23/18 11:00 96 26 114/60 (78) 98 02/23/18 10:50 97 18 65 02/23/18 10:01 92 02/23/18 10:00 91 21 107/58 (74) 98 02/23/18 09:40 75 02/23/18 09:24 93 19 75 02/23/18 09:00 89 24 113/58 (76) 98 02/23/18 08:00 Mechanical Ventilator 02/23/18 08:00 99.6 90 25 106/56 (73) 98 99.6 02/23/18 08:00 92 02/23/18 08:00 90 02/23/18 07:00 87 21 89/61 (70) 96 02/23/18 06:54 101 24 90 02/23/18 06:03 101 94/70 02/23/18 06:00 98 25 94/70 (78) 95 02/23/18 05:15 107 31 70 02/23/18 05:00 107 23 121/66 (84) 94 02/23/18 04:00 98.7 106 23 149/70 (96) 98 98.7 02/23/18 04:00 85 02/23/18 04:00 Mechanical Ventilator 02/23/18 04:00 106 02/23/18 03:20 98 25 70 02/23/18 03:00 98 23 110/50 (70) 100 02/23/18 02:00 100 27 113/64 (80) 98 02/23/18 01:18 99 26 80 02/23/18 01:00 104 19 96/56 (69) 99 02/23/18 00:00 104 02/23/18 00:00 90 02/23/18 00:00 Mechanical Ventilator 02/23/18 00:00 99.2 100 25 103/62 (76) 100 99.2 02/22/18 23:00 101 25 97/54 (68) 100 02/22/18 22:45 103 24 90 02/22/18 22:00 101 22 104/60 (75) 100 02/22/18 21:52 112 98/50 02/22/18 21:18 104 31 95 02/22/18 21:00 108 24 98/50 (66) 99 02/22/18 20:00 113 33 103/46 (65) 95 02/22/18 20:00 100 02/22/18 20:00 Mechanical Ventilator 02/22/18 20:00 113 02/22/18 19:23 115 31 100 02/22/18 19:00 98.9 113 35 131/72 (91) 95 98.9 02/22/18 18:00 116 30 135/78 (97) 93 Intake and Output 02/22/18 02/23/18 19:00 07:00 Intake Total 883.19627 ml 859.166 ml Output Total 450 ml 450 ml Balance 433.58821 ml 409.166 ml IV Total 883.52485 ml 829.166 ml Tube Feeding 0 ml 0 ml Other 30 ml Output Urine Total 450 ml 450 ml # Bowel Movements 3 3 Laboratory Tests Test 02/23/18 06:00 White Blood Count 14.2 K/UL (4.8-10.8) H Red Blood Count 3.11 M/UL (4.20-5.40) L Hemoglobin 8.5 G/DL (12.0-16.0) L Hematocrit 26.8 % (37.0-47.0) L Mean Corpuscular Volume 86 FL (80-99) Mean Corpuscular Hemoglobin 27.3 PG (27.0-31.0) Mean Corpuscular Hemoglobin Concent 31.7 G/DL (32.0-36.0) L Red Cell Distribution Width 16.4 % (11.6-14.8) H Platelet Count 422 K/UL (150-450) Mean Platelet Volume 7.3 FL (6.5-10.1) Neutrophils (%) (Auto) 80.6 % (45.0-75.0) H Lymphocytes (%) (Auto) 13.5 % (20.0-45.0) L Monocytes (%) (Auto) 4.8 % (1.0-10.0) Eosinophils (%) (Auto) 0.4 % (0.0-3.0) Basophils (%) (Auto) 0.7 % (0.0-2.0) Sodium Level 144 MMOL/L (136-145) Potassium Level 3.9 MMOL/L (3.5-5.1) Chloride Level 107 MMOL/L (98-107) Carbon Dioxide Level 35 MMOL/L (21-32) H Anion Gap 2 mmol/L (5-15) L Blood Urea Nitrogen 14 mg/dL (7-18) Creatinine 0.4 MG/DL (0.55-1.30) L Estimat Glomerular Filtration Rate mL/min (>60) Glucose Level 105 MG/DL (74-106) Calcium Level 8.1 MG/DL (8.5-10.1) L Objective HEAD AND NECK: No JVD. On Oxygen mask LUNGS: Coarse rhonchi CARDIOVASCULAR: Tachy S1 and S2 with no murmur. ABDOMEN: Soft and status post G-tube. EXTREMITIES: She has sacral decubitus. Toluie,Emmanuel MD Feb 23, 2018 17:14
[2018-02-23] MEDS: Vancomycin 750mg/NS 250ml IVPB SCH (17:53)
[2018-02-24] VITALS (23 sets, daily range): BP systolic 78–132; BP diastolic 42–72
[2018-02-24] MEDS: D5NS 1,000 ML IV SCH (03:29)
[2018-02-24] MEDS: Meropenem 1 GM in NS 110 ML IVPB SCH ×2 (05:45→18:44)
[2018-02-24] MEDS: dilTIAZem HCl 30mg tab ORAL SCH ×3 (05:46→22:27)
[2018-02-24] MEDS: NovoLOG Insulin Flexpen SUBQ SCH ×4 (05:57→19:30)
[2018-02-24 06:42] LABS: HEMATOCRIT 24.9 % (37.0-47.0); HEMOGLOBIN 7.8 G/DL (12.0-16.0); MEAN CORPUSCULAR VOLUME 85 FL (80-99); PLATELET COUNT 349 K/UL (150-450); RED BLOOD COUNT 2.93 M/UL (4.20-5.40); RED CELL DISTRIBUTION WIDTH 16.4 % (11.6-14.8); WHITE BLOOD COUNT 14.4 K/UL (4.8-10.8)
[2018-02-24 07:31] LABS: ANION GAP 3 mmol/L (5-15); BLOOD UREA NITROGEN 14 mg/dL (7-18); CALCIUM 7.8 MG/DL (8.5-10.1); CARBON DIOXIDE 32 MMOL/L (21-32); CHLORIDE 112 MMOL/L (98-107); CREATININE 0.5 MG/DL (0.55-1.30); POTASSIUM 3.4 MMOL/L (3.5-5.1); SODIUM 147 MMOL/L (136-145)
--- NOTE | 2018-02-24 08:06 | Nephrology Progress Note ---
Assessment/Plan Assessment/Plan 1. Sepsis - Abx per ID mgmt. 2. Sacral Decub- Gen Surg. 3. Hyernatremia- add free water 4. Resp FL- Patient intubated - appreciate Pulm assistance with vent mgmt. Ask conservatee for trach 5. AFib- digoxin + cardizem 6. DVT prophylaxis- lovenox 7. Hypokalemia- replace Subjective Date patient seen: Feb 24, 2018 Time patient seen: 08:03 ROS Limited/Unobtainable: Yes Allergies: Coded Allergies: No Known Allergies (Verified , 03/10/07) Subjective Patient intubated. Poss trach soon Objective Last 24 Hour Vital Signs Date Time Temp Pulse Resp B/P (MAP) Pulse Ox O2 Delivery O2 Flow Rate FiO2 02/24/18 07:20 72 21 50 02/24/18 06:00 94 28 106/53 (70) 95 02/24/18 05:46 99 99/57 02/24/18 05:00 86 20 50 02/24/18 05:00 89 25 99/57 (71) 97 02/24/18 04:00 50 02/24/18 04:00 100 02/24/18 04:00 Mechanical Ventilator 02/24/18 04:00 99.1 100 25 132/70 (90) 96 99.1 02/24/18 03:10 80 18 50 02/24/18 03:00 87 24 118/57 (77) 100 02/24/18 02:00 92 25 113/64 (80) 100 02/24/18 01:00 95 25 110/62 (78) 100 02/24/18 00:47 87 22 50 02/24/18 00:00 99.2 79 20 106/57 (73) 97 99.2 02/24/18 00:00 60 02/24/18 00:00 Mechanical Ventilator 02/23/18 23:26 78 15 50 02/23/18 23:00 79 22 90/45 (60) 96 02/23/18 22:40 88 93/47 02/23/18 22:00 71 19 88/48 (61) 98 02/23/18 21:23 75 18 60 02/23/18 21:00 73 20 93/49 (64) 99 02/23/18 20:00 98.7 71 21 93/48 (63) 99 98.7 02/23/18 20:00 71 02/23/18 20:00 60 02/23/18 20:00 Mechanical Ventilator 02/23/18 19:09 79 15 60 02/23/18 19:00 77 22 97/51 (66) 99 02/23/18 18:00 84 21 110/54 (72) 100 02/23/18 17:09 79 19 60 02/23/18 17:00 99.3 80 21 98/50 (66) 100 99.3 02/23/18 16:13 81 19 101/49 (66) 100 02/23/18 16:00 84 28 101/49 (66) 100 02/23/18 16:00 81 02/23/18 16:00 Mechanical Ventilator 02/23/18 15:12 84 101/49 02/23/18 15:00 84 28 101/49 (66) 100 02/23/18 15:00 60 02/23/18 14:52 90 15 60 02/23/18 14:00 88 22 97/45 (62) 100 02/23/18 13:00 87 30 96/55 (69) 100 02/23/18 12:33 91 19 65 02/23/18 12:00 98.6 104 26 116/47 (70) 98 98.6 02/23/18 12:00 94 02/23/18 12:00 Mechanical Ventilator 02/23/18 11:10 65 02/23/18 11:00 96 26 114/60 (78) 98 02/23/18 10:50 97 18 65 02/23/18 10:01 92 02/23/18 10:00 91 21 107/58 (74) 98 02/23/18 09:40 75 02/23/18 09:24 93 19 75 02/23/18 09:00 89 24 113/58 (76) 98 Intake and Output 02/23/18 02/24/18 19:00 07:00 Intake Total 445 ml 1217.5 ml Output Total 328 ml 415 ml Balance 117 ml 802.5 ml Free Water 60 ml IV Total 185 ml 787.5 ml Tube Feeding 200 ml 400 ml Other 30 ml Output Urine Total 328 ml 415 ml Laboratory Tests 02/24/18 05:36: White Blood Count 14.4H, Red Blood Count 2.93L, Hemoglobin 7.8L, Hematocrit 24.9L, Mean Corpuscular Volume 85, Mean Corpuscular Hemoglobin 26.7L, Mean Corpuscular Hemoglobin Concent 31.3L, Red Cell Distribution Width 16.4H, Platelet Count 349, Mean Platelet Volume 7.1, Neutrophils (%) (Auto) , Lymphocytes (%) (Auto) , Monocytes (%) (Auto) , Eosinophils (%) (Auto) , Basophils (%) (Auto) , Differential Total Cells Counted 100, Neutrophils % ( Manual) 89H, Lymphocytes % (Manual) 7L, Monocytes % (Manual) 3, Eosinophils % ( Manual) 1, Basophils % (Manual) 0, Band Neutrophils 0, Platelet Estimate Adequate, Platelet Morphology Normal, Hypochromasia 1+, Anisocytosis 1+, Sodium Level 147H, Potassium Level 3.4L, Chloride Level 112H, Carbon Dioxide Level 32, Anion Gap 3L, Blood Urea Nitrogen 14, Creatinine 0.5L, Estimat Glomerular Filtration Rate , Glucose Level 114H, Calcium Level 7.8L Height (Feet): 4 Height (Inches): 0.00 Weight (Pounds): 118 General Appearance: lethargic EENT: normal ENT inspection Neck: normal alignment, supple Cardiovascular: normal rate, regular rhythm Respiratory/Chest: rhonchi - bilaterally Abdomen: non tender, soft Edema: no edema noted Arm (L), no edema noted Arm (R), no edema noted Leg (L), no edema noted Leg (R), no edema noted Pedal (L), no edema noted Pedal (R), no edema noted Generalized Jorge Graf M.D. Feb 24, 2018 08:06
--- NOTE | 2018-02-24 09:07 | Pulmonology Progress Note ---
Assessment/Plan Assessment/Plan IMPRESSION: 1. Bilateral pneumonia. 2. Respiratory failure now intubated 3. Hypertension. 4. Diabetes mellitus. 5. Dehydration, hypernatremia 6. Tardive dyskinesia DISCUSSION: Discussed with PMD Will likely need trach Continue vent Subjective Interval Events: Remains intubated; on AC mode Constitutional: Reports: no symptoms HEENT: Repors: no symptoms Respiratory: Reports: no symptoms Cardiovascular: Reports: no symptoms Gastrointestinal/Abdominal: Reports: no symptoms Allergies: Coded Allergies: No Known Allergies (Verified , 03/10/07) Objective Last 24 Hour Vital Signs Date Time Temp Pulse Resp B/P (MAP) Pulse Ox O2 Delivery O2 Flow Rate FiO2 02/24/18 08:00 50 02/24/18 08:00 Mechanical Ventilator 02/24/18 07:20 72 21 50 02/24/18 06:00 94 28 106/53 (70) 95 02/24/18 05:46 99 99/57 02/24/18 05:00 86 20 50 02/24/18 05:00 89 25 99/57 (71) 97 02/24/18 04:00 50 02/24/18 04:00 100 02/24/18 04:00 Mechanical Ventilator 02/24/18 04:00 99.1 100 25 132/70 (90) 96 99.1 02/24/18 03:10 80 18 50 02/24/18 03:00 87 24 118/57 (77) 100 02/24/18 02:00 92 25 113/64 (80) 100 02/24/18 01:00 95 25 110/62 (78) 100 02/24/18 00:47 87 22 50 02/24/18 00:00 99.2 79 20 106/57 (73) 97 99.2 02/24/18 00:00 60 02/24/18 00:00 Mechanical Ventilator 02/23/18 23:26 78 15 50 02/23/18 23:00 79 22 90/45 (60) 96 02/23/18 22:40 88 93/47 02/23/18 22:00 71 19 88/48 (61) 98 02/23/18 21:23 75 18 60 02/23/18 21:00 73 20 93/49 (64) 99 02/23/18 20:00 98.7 71 21 93/48 (63) 99 98.7 7/10/18 20:00 71 02/23/18 20:00 60 02/23/18 20:00 Mechanical Ventilator 02/23/18 19:09 79 15 60 02/23/18 19:00 77 22 97/51 (66) 99 02/23/18 18:00 84 21 110/54 (72) 100 02/23/18 17:09 79 19 60 02/23/18 17:00 99.3 80 21 98/50 (66) 100 99.3 02/23/18 16:13 81 19 101/49 (66) 100 02/23/18 16:00 84 28 101/49 (66) 100 02/23/18 16:00 81 02/23/18 16:00 Mechanical Ventilator 02/23/18 15:12 84 101/49 02/23/18 15:00 84 28 101/49 (66) 100 02/23/18 15:00 60 02/23/18 14:52 90 15 60 02/23/18 14:00 88 22 97/45 (62) 100 02/23/18 13:00 87 30 96/55 (69) 100 02/23/18 12:33 91 19 65 02/23/18 12:00 98.6 104 26 116/47 (70) 98 98.6 02/23/18 12:00 94 02/23/18 12:00 Mechanical Ventilator 02/23/18 11:10 65 02/23/18 11:00 96 26 114/60 (78) 98 02/23/18 10:50 97 18 65 02/23/18 10:01 92 02/23/18 10:00 91 21 107/58 (74) 98 02/23/18 09:40 75 02/23/18 09:24 93 19 75 Intake and Output 02/23/18 02/24/18 19:00 07:00 Intake Total 445 ml 1257.5 ml Output Total 328 ml 455 ml Balance 117 ml 802.5 ml Free Water 60 ml IV Total 185 ml 787.5 ml Tube Feeding 200 ml 440 ml Other 30 ml Output Urine Total 328 ml 455 ml General Appearance: no acute distress HEENT: normocephalic Respiratory/Chest: chest wall non-tender, decreased breath sounds Cardiovascular: normal peripheral pulses, normal rate Abdomen: normal bowel sounds Microbiology Date/Time Source Procedure Growth Status 02/22/18 18:28 Blood Blood Culture - Preliminary NO GROWTH AFTER 24 HOURS Resulted 02/22/18 18:28 Blood Blood Culture - Preliminary NO GROWTH AFTER 24 HOURS Resulted 02/22/18 12:50 Sputum Gram Stain Pending Resulted 02/22/18 12:50 Sputum Sputum Culture - Preliminary NO GROWTH AFTER 24 HOURS Resulted Laboratory Tests 02/24/18 05:36: White Blood Count 14.4H, Red Blood Count 2.93L, Hemoglobin 7.8L, Hematocrit 24.9L, Mean Corpuscular Volume 85, Mean Corpuscular Hemoglobin 26.7L, Mean Corpuscular Hemoglobin Concent 31.3L, Red Cell Distribution Width 16.4H, Platelet Count 349, Mean Platelet Volume 7.1, Neutrophils (%) (Auto) , Lymphocytes (%) (Auto) , Monocytes (%) (Auto) , Eosinophils (%) (Auto) , Basophils (%) (Auto) , Differential Total Cells Counted 100, Neutrophils % ( Manual) 89H, Lymphocytes % (Manual) 7L, Monocytes % (Manual) 3, Eosinophils % ( Manual) 1, Basophils % (Manual) 0, Band Neutrophils 0, Platelet Estimate Adequate, Platelet Morphology Normal, Hypochromasia 1+, Anisocytosis 1+, Sodium Level 147H, Potassium Level 3.4L, Chloride Level 112H, Carbon Dioxide Level 32, Anion Gap 3L, Blood Urea Nitrogen 14, Creatinine 0.5L, Estimat Glomerular Filtration Rate , Glucose Level 114H, Calcium Level 7.8L Current Medications Medications (Trade) Dose Ordered Sig/Rosetta Route PRN Reason Start Time Stop Time Status Last Admin Dose Admin Acetaminophen (Tylenol) 650 mg Q4H PRN GT Mild Pain/Temp > 100.5 02/22/18 08:00 03/10/18 15:59 Ascorbic Acid (Vitamin C) 500 mg DAILY GT 02/22/18 09:00 03/07/18 08:59 02/23/18 10:01 Clonidine HCl (Catapres Tab) 0.1 mg Q8H PRN GT SBP >160 02/22/18 09:00 03/09/18 16:59 Dextrose (Dextrose 50%) 25 ml STAT PRN IV Hypoglycemia 02/22/18 16:00 03/11/18 15:59 Dextrose (Dextrose 50%) 50 ml STAT PRN IV Hypoglycemia 02/22/18 16:00 03/11/18 15:59 Digoxin (Lanoxin) 0.125 mg DAILY GT 02/22/18 09:00 03/07/18 08:59 02/23/18 10:01 Diltiazem HCl (Cardizem) 30 mg EVERY 8 HOURS ORAL 02/22/18 14:00 03/12/18 21:59 02/24/18 05:46 Enoxaparin Sodium (Lovenox) 30 mg Q24H SUBQ 02/22/18 09:00 03/07/18 08:59 02/22/18 08:30 Famotidine (Pepcid) 20 mg DAILY GT 02/22/18 09:00 03/10/18 08:59 02/23/18 10:01 Insulin Aspart (NovoLOG) EVERY 6 HOURS SUBQ 02/22/18 06:30 03/07/18 06:29 02/24/18 05:57 Lorazepam (Ativan 2mg/ml 1ml) 1 mg Q4H PRN IV For Anxiety 02/22/18 08:00 02/28/18 00:00 Meropenem 1 gm/ Sodium Chloride 110 ml @ 220 mls/hr Q12HR@0600,1800 IVPB 02/22/18 18:00 02/25/18 17:59 02/24/18 05:45 Potassium Chloride 100 ml @ 100 mls/hr NOW ONCE IVPB 02/24/18 09:00 02/24/18 09:59 Vancomycin HCl (Vanco rx to dose) 1 ea DAILY PRN MISC Per rx protocol 02/22/18 16:45 03/24/18 16:44 Vancomycin/Sodium Chloride 250 ml @ 166.667 mls/hr Q24H IVPB 02/22/18 17:00 02/27/18 16:59 02/23/18 17:53 Jan Sawant MD Feb 24, 2018 09:07
[2018-02-24] MEDS: Ascorbic Acid 500mg tab GT SCH (09:36)
[2018-02-24] MEDS: Digoxin 0.125mg tab GT SCH (09:37)
[2018-02-24] MEDS: Enoxaparin 30mg Inj SUBQ SCH (09:39)
[2018-02-24] MEDS ORDERED: D5NS 1000ml IV ONE (11:38)
[2018-02-24] MEDS ORDERED: NS 275ml ONE ×2 (11:38→17:36)
[2018-02-24] MEDS ORDERED: Tubing IV Secondary IV ONE (11:38)
--- NOTE | 2018-02-24 15:54 | Cardiology Progress Note ---
Assessment/Plan Status: stable, not improved, unchanged Assessment/Plan Assessment/Plan Assessment/Plan 1. Paroxysmal atrial fibrillation. In SR on digoxin 0.125 mg daily and Cardizem 30 tid. Off anticoagulation. Echo Nl EF. 2. Hypertension. On Cardizem 30 tid 3. Respiratory failure, on Vent now in ICU 4. Diabetes, on insulin. 5. Dementia. 6. Dysphagia, status post PEG 7. Sacral decubitus stage III. FU by Dr. Austin. 8. CVA with aphasia and contractures. Subjective Cardiovascular: Reports: no symptoms Respiratory: Reports: no symptoms Gastrointestinal/Abdominal: Reports: no symptoms Genitourinary: Reports: no symptoms Subjective no acute events, off pressors Objective Last 24 Hour Vital Signs Date Time Temp Pulse Resp B/P (MAP) Pulse Ox O2 Delivery O2 Flow Rate FiO2 02/24/18 14:52 92 129/58 02/24/18 14:39 100 24 40 02/24/18 13:15 75 21 40 02/24/18 12:00 Mechanical Ventilator 02/24/18 12:00 50 02/24/18 11:00 91 21 100/49 (66) 95 02/24/18 10:57 89 22 50 02/24/18 10:00 84 23 90/53 (65) 95 02/24/18 09:37 87 02/24/18 09:22 81 17 50 02/24/18 09:00 87 24 91/42 (58) 97 02/24/18 08:00 50 02/24/18 08:00 84 02/24/18 08:00 98.9 80 23 98/53 (68) 98 98.9 02/24/18 08:00 Mechanical Ventilator 02/24/18 07:20 72 21 50 02/24/18 07:00 79 26 96/49 (65) 98 02/24/18 06:00 94 28 106/53 (70) 95 02/24/18 05:46 99 99/57 02/24/18 05:00 86 20 50 02/24/18 05:00 89 25 99/57 (71) 97 02/24/18 04:00 50 02/24/18 04:00 100 02/24/18 04:00 Mechanical Ventilator 02/24/18 04:00 99.1 100 25 132/70 (90) 96 99.1 02/24/18 03:10 80 18 50 02/24/18 03:00 87 24 118/57 (77) 100 02/24/18 02:00 92 25 113/64 (80) 100 02/24/18 01:00 95 25 110/62 (78) 100 02/24/18 00:47 87 22 50 02/24/18 00:00 99.2 79 20 106/57 (73) 97 99.2 02/24/18 00:00 60 02/24/18 00:00 Mechanical Ventilator 02/23/18 23:26 78 15 50 02/23/18 23:00 79 22 90/45 (60) 96 02/23/18 22:40 88 93/47 02/23/18 22:00 71 19 88/48 (61) 98 02/23/18 21:23 75 18 60 02/23/18 21:00 73 20 93/49 (64) 99 02/23/18 20:00 98.7 71 21 93/48 (63) 99 98.7 02/23/18 20:00 71 02/23/18 20:00 60 02/23/18 20:00 Mechanical Ventilator 02/23/18 19:09 79 15 60 02/23/18 19:00 77 22 97/51 (66) 99 02/23/18 18:00 84 21 110/54 (72) 100 02/23/18 17:09 79 19 60 02/23/18 17:00 99.3 80 21 98/50 (66) 100 99.3 02/23/18 16:13 81 19 101/49 (66) 100 02/23/18 16:00 84 28 101/49 (66) 100 02/23/18 16:00 81 02/23/18 16:00 Mechanical Ventilator General Appearance: no apparent distress, on vent EENT: PERRL/EOMI Neck: non-tender Rhythm: NSR Cardiovascular: normal peripheral pulses Respiratory/Chest: chest wall non-tender Abdomen: normal bowel sounds Extremities: normal range of motion Neurologic: no Babinski, abnormal CN, motor weakness, unresponsiveness, aphasia Intake and Output 02/23/18 02/24/18 19:00 07:00 Intake Total 445 ml 1257.5 ml Output Total 328 ml 455 ml Balance 117 ml 802.5 ml Free Water 60 ml IV Total 185 ml 787.5 ml Tube Feeding 200 ml 440 ml Other 30 ml Output Urine Total 328 ml 455 ml Laboratory Tests Test 02/24/18 05:36 White Blood Count 14.4 K/UL (4.8-10.8) H Red Blood Count 2.93 M/UL (4.20-5.40) L Hemoglobin 7.8 G/DL (12.0-16.0) L Hematocrit 24.9 % (37.0-47.0) L Mean Corpuscular Volume 85 FL (80-99) Mean Corpuscular Hemoglobin 26.7 PG (27.0-31.0) L Mean Corpuscular Hemoglobin Concent 31.3 G/DL (32.0-36.0) L Red Cell Distribution Width 16.4 % (11.6-14.8) H Platelet Count 349 K/UL (150-450) Mean Platelet Volume 7.1 FL (6.5-10.1) Neutrophils (%) (Auto) % (45.0-75.0) Lymphocytes (%) (Auto) % (20.0-45.0) Monocytes (%) (Auto) % (1.0-10.0) Eosinophils (%) (Auto) % (0.0-3.0) Basophils (%) (Auto) % (0.0-2.0) Differential Total Cells Counted 100 Neutrophils % (Manual) 89 % (45-75) H Lymphocytes % (Manual) 7 % (20-45) L Monocytes % (Manual) 3 % (1-10) Eosinophils % (Manual) 1 % (0-3) Basophils % (Manual) 0 % (0-2) Band Neutrophils 0 % (0-8) Platelet Estimate Adequate Platelet Morphology Normal Hypochromasia 1+ Anisocytosis 1+ Sodium Level 147 MMOL/L (136-145) H Potassium Level 3.4 MMOL/L (3.5-5.1) L Chloride Level 112 MMOL/L (98-107) H Carbon Dioxide Level 32 MMOL/L (21-32) Anion Gap 3 mmol/L (5-15) L Blood Urea Nitrogen 14 mg/dL (7-18) Creatinine 0.5 MG/DL (0.55-1.30) L Estimat Glomerular Filtration Rate mL/min (>60) Glucose Level 114 MG/DL (74-106) H Calcium Level 7.8 MG/DL (8.5-10.1) L Microbiology Date/Time Source Procedure Growth Status 02/22/18 18:28 Blood Blood Culture - Preliminary NO GROWTH AFTER 24 HOURS Resulted 02/22/18 18:28 Blood Blood Culture - Preliminary NO GROWTH AFTER 24 HOURS Resulted 02/22/18 12:50 Sputum Gram Stain Pending Resulted 02/22/18 12:50 Sputum Sputum Culture - Preliminary NO GROWTH AFTER 24 HOURS Resulted Maxx Ureña M.D. Feb 24, 2018 15:54
[2018-02-24] MEDS: Acetaminophen 650mg/20.3ml GT PRN (16:48)
[2018-02-24] MEDS ORDERED: D5 1/2NS 1000ml IV ONE (17:36)
[2018-02-24] MEDS ORDERED: Sodium Chloride 500ML 500 ML IV ONE (17:45)
--- NOTE | 2018-02-24 18:34 | Infectious Diseases Prog Note ---
Assessment/Plan Problems: (1) HCAP (healthcare-associated pneumonia) Assessment & Plan: with left lung total white out , suspect mucous plug, complicated with respiratory failure, S/P intubation . sputum culture grew normal anjel so far , continue vancomycin and meropenem empiric coverage , monitor CXR . pulmonary is following. 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 continue local wound care and dressing changes as per hospital protocol . was evaluated by general surgery (3) Sepsis Assessment & Plan: will repeat blood culture today to rule out (4) Acute respiratory failure Assessment & Plan: with hypoxemia , with total left lung white out , suspect mucous plug, pulmonary is following, monitor CXR and ABG . she may need tracheostomy Subjective ROS Limited/Unobtainable: Yes Allergies: Coded Allergies: No Known Allergies (Verified , 03/10/07) Subjective she is still intubated on mechanical ventilation , in ICU, she is comfortable , had low grade fever, no chills , had secretions frm ET tube . Objective Vital Signs Last 24 Hour Vital Signs Date Time Temp Pulse Resp B/P (MAP) Pulse Ox O2 Delivery O2 Flow Rate FiO2 02/24/18 18:00 75 19 101/52 (68) 98 02/24/18 17:18 98.9 02/24/18 17:00 98.9 76 20 80/42 (55) 98 98.9 02/24/18 16:48 100.0 02/24/18 16:42 77 19 40 02/24/18 16:00 82 22 78/43 (55) 98 02/24/18 16:00 Mechanical Ventilator 02/24/18 16:00 84 02/24/18 16:00 50 02/24/18 15:00 93 22 130/66 (87) 98 02/24/18 14:52 92 129/58 02/24/18 14:39 100 24 40 02/24/18 14:00 87 23 129/58 (81) 98 02/24/18 13:15 75 21 40 02/24/18 13:00 87 23 129/58 (81) 98 02/24/18 12:00 89 02/24/18 12:00 100.0 82 19 101/52 (68) 95 100.0 02/24/18 12:00 Mechanical Ventilator 02/24/18 12:00 50 02/24/18 11:00 91 21 100/49 (66) 95 02/24/18 10:57 89 22 50 02/24/18 10:00 84 23 90/53 (65) 95 02/24/18 09:37 87 02/24/18 09:22 81 17 50 02/24/18 09:00 87 24 91/42 (58) 97 02/24/18 08:00 50 02/24/18 08:00 84 02/24/18 08:00 98.9 80 23 98/53 (68) 98 98.9 02/24/18 08:00 Mechanical Ventilator 02/24/18 07:20 72 21 50 02/24/18 07:00 79 26 96/49 (65) 98 02/24/18 06:00 94 28 106/53 (70) 95 02/24/18 05:46 99 99/57 02/24/18 05:00 86 20 50 02/24/18 05:00 89 25 99/57 (71) 97 02/24/18 04:00 50 02/24/18 04:00 100 02/24/18 04:00 Mechanical Ventilator 02/24/18 04:00 99.1 100 25 132/70 (90) 96 99.1 02/24/18 03:10 80 18 50 02/24/18 03:00 87 24 118/57 (77) 100 02/24/18 02:00 92 25 113/64 (80) 100 02/24/18 01:00 95 25 110/62 (78) 100 02/24/18 00:47 87 22 50 02/24/18 00:00 99.2 79 20 106/57 (73) 97 99.2 02/24/18 00:00 60 02/24/18 00:00 Mechanical Ventilator 02/23/18 23:26 78 15 50 02/23/18 23:00 79 22 90/45 (60) 96 02/23/18 22:40 88 93/47 02/23/18 22:00 71 19 88/48 (61) 98 02/23/18 21:23 75 18 60 02/23/18 21:00 73 20 93/49 (64) 99 02/23/18 20:00 98.7 71 21 93/48 (63) 99 98.7 02/23/18 20:00 71 02/23/18 20:00 60 02/23/18 20:00 Mechanical Ventilator 02/23/18 19:09 79 15 60 02/23/18 19:00 77 22 97/51 (66) 99 Height (Feet): 4 Height (Inches): 0.00 Weight (Pounds): 118 General Appearance: WD/WN, no acute distress, cachetic HEENT: normocephalic, atraumatic, anicteric, mucous membranes moist Respiratory/Chest: chest wall non-tender, no respiratory distress, no accessory muscle use, decreased breath sounds, expiratory wheezing Cardiovascular: normal peripheral pulses, normal rate, regular rhythm, no gallop/murmur, no JVD Abdomen: normal bowel sounds, soft, non tender, no organomegaly, non distended , no mass, no scars Extremities: no cyanosis, no clubbing, other Skin: no rash, no lesions, ulcers Neurologic/Psychiatric: alert Microbiology Date/Time Source Procedure Growth Status 02/22/18 18:28 Blood Blood Culture - Preliminary NO GROWTH AFTER 24 HOURS Resulted 02/22/18 18:28 Blood Blood Culture - Preliminary NO GROWTH AFTER 24 HOURS Resulted 02/22/18 12:50 Sputum Gram Stain Pending Resulted 02/22/18 12:50 Sputum Sputum Culture - Preliminary NO GROWTH AFTER 24 HOURS Resulted Laboratory Tests Test 02/24/18 05:36 02/24/18 16:50 White Blood Count 14.4 K/UL (4.8-10.8) H Red Blood Count 2.93 M/UL (4.20-5.40) L Hemoglobin 7.8 G/DL (12.0-16.0) L Hematocrit 24.9 % (37.0-47.0) L Mean Corpuscular Volume 85 FL (80-99) Mean Corpuscular Hemoglobin 26.7 PG (27.0-31.0) L Mean Corpuscular Hemoglobin Concent 31.3 G/DL (32.0-36.0) L Red Cell Distribution Width 16.4 % (11.6-14.8) H Platelet Count 349 K/UL (150-450) Mean Platelet Volume 7.1 FL (6.5-10.1) Neutrophils (%) (Auto) % (45.0-75.0) Lymphocytes (%) (Auto) % (20.0-45.0) Monocytes (%) (Auto) % (1.0-10.0) Eosinophils (%) (Auto) % (0.0-3.0) Basophils (%) (Auto) % (0.0-2.0) Differential Total Cells Counted 100 Neutrophils % (Manual) 89 % (45-75) H Lymphocytes % (Manual) 7 % (20-45) L Monocytes % (Manual) 3 % (1-10) Eosinophils % (Manual) 1 % (0-3) Basophils % (Manual) 0 % (0-2) Band Neutrophils 0 % (0-8) Platelet Estimate Adequate Platelet Morphology Normal Hypochromasia 1+ Anisocytosis 1+ Sodium Level 147 MMOL/L (136-145) H Potassium Level 3.4 MMOL/L (3.5-5.1) L Chloride Level 112 MMOL/L (98-107) H Carbon Dioxide Level 32 MMOL/L (21-32) Anion Gap 3 mmol/L (5-15) L Blood Urea Nitrogen 14 mg/dL (7-18) Creatinine 0.5 MG/DL (0.55-1.30) L Estimat Glomerular Filtration Rate mL/min (>60) Glucose Level 114 MG/DL (74-106) H Calcium Level 7.8 MG/DL (8.5-10.1) L Vancomycin Level Trough 8.8 ug/mL (5.0-12.0) Current Medications Medications (Trade) Dose Ordered Sig/Rosetta Route PRN Reason Start Time Stop Time Status Last Admin Dose Admin Acetaminophen (Tylenol) 650 mg Q4H PRN GT Mild Pain/Temp > 100.5 02/22/18 08:00 03/10/18 15:59 02/24/18 16:48 Ascorbic Acid (Vitamin C) 500 mg DAILY GT 02/22/18 09:00 03/07/18 08:59 02/24/18 09:36 Clonidine HCl (Catapres Tab) 0.1 mg Q8H PRN GT SBP >160 02/22/18 09:00 03/09/18 16:59 Dextrose (Dextrose 50%) 25 ml STAT PRN IV Hypoglycemia 02/22/18 16:00 03/11/18 15:59 Dextrose (Dextrose 50%) 50 ml STAT PRN IV Hypoglycemia 02/22/18 16:00 03/11/18 15:59 Digoxin (Lanoxin) 0.125 mg DAILY GT 02/22/18 09:00 03/07/18 08:59 02/24/18 09:37 Diltiazem HCl (Cardizem) 30 mg EVERY 8 HOURS ORAL 02/22/18 14:00 03/12/18 21:59 02/24/18 14:52 Enoxaparin Sodium (Lovenox) 30 mg Q24H SUBQ 02/22/18 09:00 03/07/18 08:59 02/24/18 09:39 Famotidine (Pepcid) 20 mg DAILY GT 02/22/18 09:00 03/10/18 08:59 02/24/18 09:37 Insulin Aspart (NovoLOG) EVERY 6 HOURS SUBQ 02/22/18 06:30 03/07/18 06:29 02/24/18 12:41 Lorazepam (Ativan 2mg/ml 1ml) 1 mg Q4H PRN IV For Anxiety 02/22/18 08:00 02/28/18 00:00 Meropenem 1 gm/ Sodium Chloride 110 ml @ 220 mls/hr Q12HR@0600,1800 IVPB 02/22/18 18:00 02/25/18 17:59 02/24/18 05:45 Vancomycin HCl (Vanco rx to dose) 1 ea DAILY PRN MISC Per rx protocol 02/22/18 16:45 03/24/18 16:44 Vancomycin HCl 1 gm/Dextrose 275 ml @ 183.708 mls/hr Q24H IVPB 02/24/18 18:00 03/01/18 17:59 Dom Hoffman M.D. Feb 24, 2018 18:34
[2018-02-24] MEDS: Vancomycin 1gm/D5W 275ml IVPB SCH ×2 (18:44)
[2018-02-25] VITALS (24 sets, daily range): BP systolic 98–132; BP diastolic 43–73
[2018-02-25] MEDS: NovoLOG Insulin Flexpen SUBQ SCH ×4 (05:55→18:00)
[2018-02-25] MEDS: Meropenem 1 GM in NS 110 ML IVPB SCH ×2 (05:59→18:10)
[2018-02-25] MEDS: dilTIAZem HCl 30mg tab ORAL SCH ×3 (06:00→21:29)
[2018-02-25 06:10] LABS: HEMATOCRIT 24.6 % (37.0-47.0); HEMOGLOBIN 7.9 G/DL (12.0-16.0); MEAN CORPUSCULAR VOLUME 86 FL (80-99); PLATELET COUNT 330 K/UL (150-450); RED BLOOD COUNT 2.87 M/UL (4.20-5.40); RED CELL DISTRIBUTION WIDTH 15.9 % (11.6-14.8); WHITE BLOOD COUNT 11.7 K/UL (4.8-10.8)
[2018-02-25 06:26] LABS: ANION GAP 5 mmol/L (5-15); BLOOD UREA NITROGEN 13 mg/dL (7-18); CALCIUM 7.6 MG/DL (8.5-10.1); CARBON DIOXIDE 30 MMOL/L (21-32); CHLORIDE 108 MMOL/L (98-107); CREATININE 0.4 MG/DL (0.55-1.30); POTASSIUM 3.9 MMOL/L (3.5-5.1); SODIUM 143 MMOL/L (136-145)
--- NOTE | 2018-02-25 07:40 | Nephrology Progress Note ---
Assessment/Plan Assessment/Plan 1. Sepsis - Abx per ID mgmt. Stable 2. Sacral Decub- Gen Surg 3. Hyernatremia- resolved on free water 4. Resp FL- Patient intubated - appreciate Pulm assistance with vent mgmt. Ask conservatee for trach 5. AFib- digoxin + cardizem 6. DVT prophylaxis- lovenox 7. Hypokalemia- replace prn Subjective Date patient seen: Feb 25, 2018 Time patient seen: 07:38 ROS Limited/Unobtainable: Yes Allergies: Coded Allergies: No Known Allergies (Verified , 03/10/07) Subjective Patient remains intubated on vent Objective Last 24 Hour Vital Signs Date Time Temp Pulse Resp B/P (MAP) Pulse Ox O2 Delivery O2 Flow Rate FiO2 02/25/18 06:45 72 19 40 02/25/18 06:00 75 129/60 02/25/18 05:22 79 20 40 02/25/18 04:00 40 02/25/18 02:38 77 18 40 02/25/18 02:00 81 20 120/63 (82) 97 02/25/18 01:20 84 23 40 02/25/18 01:00 81 22 129/63 (85) 97 02/25/18 00:00 81 02/25/18 00:00 98.8 81 22 125/56 (79) 97 98.8 02/25/18 00:00 40 02/25/18 00:00 Mechanical Ventilator 02/24/18 23:00 84 22 125/56 (79) 97 02/24/18 22:57 85 17 40 02/24/18 22:27 81 121/72 02/24/18 22:00 84 20 115/60 (78) 100 02/24/18 21:02 82 22 40 02/24/18 21:00 83 20 121/72 (88) 100 02/24/18 20:00 40 02/24/18 20:00 Mechanical Ventilator 02/24/18 20:00 83 23 106/57 (73) 99 02/24/18 20:00 83 02/24/18 19:10 84 21 40 02/24/18 18:00 75 19 101/52 (68) 98 02/24/18 17:18 98.9 02/24/18 17:00 98.9 76 20 80/42 (55) 98 98.9 02/24/18 16:48 100.0 02/24/18 16:42 77 19 40 02/24/18 16:00 82 22 78/43 (55) 98 02/24/18 16:00 Mechanical Ventilator 02/24/18 16:00 84 02/24/18 16:00 40 02/24/18 15:00 93 22 130/66 (87) 98 02/24/18 14:52 92 129/58 02/24/18 14:39 100 24 40 02/24/18 14:00 87 23 129/58 (81) 98 02/24/18 13:15 75 21 40 02/24/18 13:15 40 02/24/18 13:00 87 23 129/58 (81) 98 02/24/18 12:00 89 02/24/18 12:00 100.0 82 19 101/52 (68) 95 100.0 02/24/18 12:00 Mechanical Ventilator 02/24/18 12:00 50 02/24/18 11:00 91 21 100/49 (66) 95 02/24/18 10:57 89 22 50 02/24/18 10:00 84 23 90/53 (65) 95 02/24/18 09:37 87 02/24/18 09:22 81 17 50 02/24/18 09:00 87 24 91/42 (58) 97 02/24/18 08:00 50 02/24/18 08:00 84 02/24/18 08:00 98.9 80 23 98/53 (68) 98 98.9 02/24/18 08:00 Mechanical Ventilator Intake and Output 02/24/18 02/25/18 19:00 07:00 Intake Total 905 ml 520 ml Output Total 500 ml 391 ml Balance 405 ml 129 ml Free Water 100 ml IV Total 175 ml Tube Feeding 480 ml 320 ml Other 150 ml 200 ml Output Urine Total 500 ml 390 ml Stool Total 1 ml # Bowel Movements 1 Laboratory Tests 02/24/18 16:50: Vancomycin Level Trough 8.8 02/25/18 05:00: White Blood Count 11.7H, Red Blood Count 2.87L, Hemoglobin 7.9L, Hematocrit 24.6L, Mean Corpuscular Volume 86, Mean Corpuscular Hemoglobin 27.5, Mean Corpuscular Hemoglobin Concent 32.2, Red Cell Distribution Width 15.9H, Platelet Count 330, Mean Platelet Volume 6.8, Neutrophils (%) (Auto) , Lymphocytes (%) (Auto) , Monocytes (%) (Auto) , Eosinophils (%) (Auto) , Basophils (%) (Auto) , Differential Total Cells Counted 100, Neutrophils % ( Manual) 73, Lymphocytes % (Manual) 20, Monocytes % (Manual) 3, Eosinophils % ( Manual) 4H, Basophils % (Manual) 0, Band Neutrophils 0, Platelet Estimate Adequate, Platelet Morphology Normal, Anisocytosis 1+, Sodium Level 143, Potassium Level 3.9, Chloride Level 108H, Carbon Dioxide Level 30, Anion Gap 5, Blood Urea Nitrogen 13, Creatinine 0.4L, Estimat Glomerular Filtration Rate , Glucose Level 70L, Calcium Level 7.6L Height (Feet): 4 Height (Inches): 0.00 Weight (Pounds): 98 General Appearance: no apparent distress EENT: normal ENT inspection Neck: normal alignment, supple Cardiovascular: normal rate, regular rhythm Respiratory/Chest: rhonchi - bilaterally Extremities: non-tender Edema: no edema noted Arm (L), no edema noted Arm (R), no edema noted Leg (L), no edema noted Leg (R), no edema noted Pedal (L), no edema noted Pedal (R), no edema noted Generalized Jorge Graf M.D. Feb 25, 2018 07:40
[2018-02-25] MEDS: Digoxin 0.125mg tab GT SCH (08:25)
[2018-02-25] MEDS: Ascorbic Acid 500mg tab GT SCH (08:26)
[2018-02-25] MEDS: Enoxaparin 30mg Inj SUBQ SCH (08:27)
--- NOTE | 2018-02-25 14:13 | Pulmonology Progress Note ---
Assessment/Plan Assessment/Plan IMPRESSION: 1. Bilateral pneumonia. 2. Respiratory failure now intubated 3. Hypertension. 4. Diabetes mellitus. 5. Dehydration, hypernatremia 6. Tardive dyskinesia DISCUSSION: Discussed with PMD Will likely need trach Continue vent Subjective Interval Events: Remains on AC mode; ABG noted Constitutional: Reports: no symptoms HEENT: Repors: no symptoms Respiratory: Reports: no symptoms Cardiovascular: Reports: no symptoms Gastrointestinal/Abdominal: Reports: no symptoms Genitourinary: Reports: no symptoms Allergies: Coded Allergies: No Known Allergies (Verified , 03/10/07) Objective Last 24 Hour Vital Signs Date Time Temp Pulse Resp B/P (MAP) Pulse Ox O2 Delivery O2 Flow Rate FiO2 02/25/18 13:14 90 127/62 02/25/18 13:00 79 20 127/62 (83) 94 02/25/18 12:55 77 18 40 02/25/18 12:00 40 02/25/18 12:00 99.4 93 17 127/61 (83) 98 99.4 02/25/18 12:00 Mechanical Ventilator 02/25/18 11:00 95 23 132/73 (92) 99 02/25/18 10:40 96 26 40 02/25/18 10:00 89 25 118/58 (78) 99 02/25/18 09:05 94 27 40 02/25/18 09:00 79 22 105/58 (74) 97 02/25/18 08:25 89 02/25/18 08:00 98.9 89 26 126/73 (90) 92 98.9 02/25/18 08:00 Mechanical Ventilator 02/25/18 08:00 40 02/25/18 07:00 85 22 100/55 (70) 93 02/25/18 06:45 72 19 40 02/25/18 06:00 74 22 115/55 (75) 93 02/25/18 06:00 75 129/60 02/25/18 05:22 79 20 40 02/25/18 05:00 78 20 112/60 (77) 93 02/25/18 04:00 98.2 77 20 129/60 (83) 96 98.2 02/25/18 04:00 77 02/25/18 04:00 Mechanical Ventilator 02/25/18 04:00 40 02/25/18 03:00 87 20 98/56 (70) 96 02/25/18 02:38 77 18 40 02/25/18 02:00 81 20 120/63 (82) 97 02/25/18 01:20 84 23 40 02/25/18 01:00 81 22 129/63 (85) 97 02/25/18 00:00 81 02/25/18 00:00 98.8 81 22 125/56 (79) 97 98.8 02/25/18 00:00 40 02/25/18 00:00 Mechanical Ventilator 02/24/18 23:00 84 22 125/56 (79) 97 02/24/18 22:57 85 17 40 02/24/18 22:27 81 121/72 02/24/18 22:00 84 20 115/60 (78) 100 02/24/18 21:02 82 22 40 02/24/18 21:00 83 20 121/72 (88) 100 02/24/18 20:00 40 02/24/18 20:00 Mechanical Ventilator 02/24/18 20:00 83 23 106/57 (73) 99 02/24/18 20:00 83 02/24/18 19:10 84 21 40 02/24/18 18:00 75 19 101/52 (68) 98 02/24/18 17:18 98.9 02/24/18 17:00 98.9 76 20 80/42 (55) 98 98.9 02/24/18 16:48 100.0 02/24/18 16:42 77 19 40 02/24/18 16:00 82 22 78/43 (55) 98 02/24/18 16:00 Mechanical Ventilator 02/24/18 16:00 84 02/24/18 16:00 40 02/24/18 15:00 93 22 130/66 (87) 98 02/24/18 14:52 92 129/58 02/24/18 14:39 100 24 40 Intake and Output 02/24/18 02/25/18 19:00 07:00 Intake Total 905 ml 890 ml Output Total 500 ml 611 ml Balance 405 ml 279 ml Free Water 100 ml IV Total 175 ml 110 ml Tube Feeding 480 ml 480 ml Other 150 ml 300 ml Output Urine Total 500 ml 610 ml Stool Total 1 ml # Bowel Movements 1 General Appearance: no acute distress HEENT: normocephalic Respiratory/Chest: chest wall non-tender, decreased breath sounds Cardiovascular: normal peripheral pulses Abdomen: normal bowel sounds, soft, non tender Extremities: no cyanosis Microbiology Date/Time Source Procedure Growth Status 02/22/18 18:28 Blood Blood Culture - Preliminary NO GROWTH AFTER 48 HOURS Resulted 02/22/18 18:28 Blood Blood Culture - Preliminary NO GROWTH AFTER 48 HOURS Resulted Laboratory Tests 02/24/18 16:50: Vancomycin Level Trough 8.8 02/25/18 05:00: White Blood Count 11.7H, Red Blood Count 2.87L, Hemoglobin 7.9L, Hematocrit 24.6L, Mean Corpuscular Volume 86, Mean Corpuscular Hemoglobin 27.5, Mean Corpuscular Hemoglobin Concent 32.2, Red Cell Distribution Width 15.9H, Platelet Count 330, Mean Platelet Volume 6.8, Neutrophils (%) (Auto) , Lymphocytes (%) (Auto) , Monocytes (%) (Auto) , Eosinophils (%) (Auto) , Basophils (%) (Auto) , Differential Total Cells Counted 100, Neutrophils % ( Manual) 73, Lymphocytes % (Manual) 20, Monocytes % (Manual) 3, Eosinophils % ( Manual) 4H, Basophils % (Manual) 0, Band Neutrophils 0, Platelet Estimate Adequate, Platelet Morphology Normal, Anisocytosis 1+, Sodium Level 143, Potassium Level 3.9, Chloride Level 108H, Carbon Dioxide Level 30, Anion Gap 5, Blood Urea Nitrogen 13, Creatinine 0.4L, Estimat Glomerular Filtration Rate , Glucose Level 70L, Calcium Level 7.6L 02/25/18 10:59: Arterial Blood pH 7.440, Arterial Blood Partial Pressure CO2 46.6H, Arterial Blood Partial Pressure O2 79.9, Arterial Blood HCO3 31.0H, Arterial Blood Oxygen Saturation 95.5, Arterial Blood Base Excess 6.2, Kang Test Positive Current Medications Medications (Trade) Dose Ordered Sig/Rosetta Route PRN Reason Start Time Stop Time Status Last Admin Dose Admin Acetaminophen (Tylenol) 650 mg Q4H PRN GT Mild Pain/Temp > 100.5 02/22/18 08:00 03/10/18 15:59 02/24/18 16:48 Ascorbic Acid (Vitamin C) 500 mg DAILY GT 02/22/18 09:00 03/07/18 08:59 02/25/18 08:26 Clonidine HCl (Catapres Tab) 0.1 mg Q8H PRN GT SBP >160 02/22/18 09:00 03/09/18 16:59 Dextrose (Dextrose 50%) 25 ml STAT PRN IV Hypoglycemia 02/22/18 16:00 03/11/18 15:59 Dextrose (Dextrose 50%) 50 ml STAT PRN IV Hypoglycemia 02/22/18 16:00 03/11/18 15:59 Digoxin (Lanoxin) 0.125 mg DAILY GT 02/22/18 09:00 03/07/18 08:59 02/25/18 08:25 Diltiazem HCl (Cardizem) 30 mg EVERY 8 HOURS ORAL 02/22/18 14:00 03/12/18 21:59 02/25/18 13:14 Enoxaparin Sodium (Lovenox) 30 mg Q24H SUBQ 02/22/18 09:00 03/07/18 08:59 02/24/18 09:39 Famotidine (Pepcid) 20 mg DAILY GT 02/22/18 09:00 03/10/18 08:59 02/25/18 08:25 Insulin Aspart (NovoLOG) EVERY 6 HOURS SUBQ 02/22/18 06:30 03/07/18 06:29 02/24/18 19:30 Lorazepam (Ativan 2mg/ml 1ml) 1 mg Q4H PRN IV For Anxiety 02/22/18 08:00 02/28/18 00:00 Meropenem 1 gm/ Sodium Chloride 110 ml @ 220 mls/hr Q12HR@0600,1800 IVPB 02/22/18 18:00 02/28/18 23:59 02/25/18 05:59 Vancomycin HCl (Vanco rx to dose) 1 ea DAILY PRN MISC Per rx protocol 02/22/18 16:45 03/24/18 16:44 Vancomycin HCl 1 gm/Dextrose 275 ml @ 183.708 mls/hr Q24H IVPB 02/24/18 18:00 03/01/18 17:59 02/24/18 18:44 Jan Sawant MD Feb 25, 2018 14:13
--- NOTE | 2018-02-25 16:13 | Infectious Diseases Prog Note ---
Assessment/Plan Problems: (1) HCAP (healthcare-associated pneumonia) Assessment & Plan: with left lung total white out , suspect mucous plug, complicated with respiratory failure, S/P intubation . sputum culture grew normal anjel so far , continue vancomycin and meropenem empiric coverage for now , monitor CXR . pulmonary is following. 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 continue local wound care and dressing changes as per hospital protocol . was evaluated by general surgery (3) Sepsis Assessment & Plan: will repeat blood culture today to rule out (4) Acute respiratory failure Assessment & Plan: with hypoxemia , with total left lung white out , suspect mucous plug, pulmonary is following, monitor CXR and ABG . she may need tracheostomy Subjective ROS Limited/Unobtainable: Yes Allergies: Coded Allergies: No Known Allergies (Verified , 03/10/07) Subjective she is still intubated on mechanical ventilation , in ICU, she is comfortable , no fever, or chills , had secretions from ET tube . Objective Vital Signs Last 24 Hour Vital Signs Date Time Temp Pulse Resp B/P (MAP) Pulse Ox O2 Delivery O2 Flow Rate FiO2 02/25/18 15:00 72 17 110/43 (65) 100 02/25/18 14:00 68 17 98/60 (73) 100 02/25/18 13:14 90 127/62 02/25/18 13:00 79 20 127/62 (83) 94 02/25/18 12:55 77 18 40 02/25/18 12:09 96 02/25/18 12:00 40 02/25/18 12:00 99.4 93 17 127/61 (83) 98 99.4 02/25/18 12:00 Mechanical Ventilator 02/25/18 11:00 95 23 132/73 (92) 99 02/25/18 10:40 96 26 40 02/25/18 10:00 89 25 118/58 (78) 99 02/25/18 09:05 94 27 40 02/25/18 09:00 79 22 105/58 (74) 97 02/25/18 08:25 89 02/25/18 08:00 98.9 89 26 126/73 (90) 92 98.9 02/25/18 08:00 Mechanical Ventilator 7/12/18 08:00 40 02/25/18 07:39 79 02/25/18 07:00 85 22 100/55 (70) 93 02/25/18 06:45 72 19 40 02/25/18 06:00 74 22 115/55 (75) 93 02/25/18 06:00 75 129/60 02/25/18 05:22 79 20 40 02/25/18 05:00 78 20 112/60 (77) 93 02/25/18 04:00 98.2 77 20 129/60 (83) 96 98.2 02/25/18 04:00 77 02/25/18 04:00 Mechanical Ventilator 02/25/18 04:00 40 02/25/18 03:00 87 20 98/56 (70) 96 02/25/18 02:38 77 18 40 02/25/18 02:00 81 20 120/63 (82) 97 02/25/18 01:20 84 23 40 02/25/18 01:00 81 22 129/63 (85) 97 02/25/18 00:00 81 02/25/18 00:00 98.8 81 22 125/56 (79) 97 98.8 02/25/18 00:00 40 02/25/18 00:00 Mechanical Ventilator 02/24/18 23:00 84 22 125/56 (79) 97 02/24/18 22:57 85 17 40 02/24/18 22:27 81 121/72 02/24/18 22:00 84 20 115/60 (78) 100 02/24/18 21:02 82 22 40 02/24/18 21:00 83 20 121/72 (88) 100 02/24/18 20:00 40 02/24/18 20:00 Mechanical Ventilator 02/24/18 20:00 83 23 106/57 (73) 99 02/24/18 20:00 83 02/24/18 19:10 84 21 40 02/24/18 18:00 75 19 101/52 (68) 98 02/24/18 17:18 98.9 02/24/18 17:00 98.9 76 20 80/42 (55) 98 98.9 02/24/18 16:48 100.0 02/24/18 16:42 77 19 40 Height (Feet): 4 Height (Inches): 0.00 Weight (Pounds): 98 General Appearance: WD/WN, no acute distress HEENT: normocephalic, atraumatic, anicteric, mucous membranes moist Respiratory/Chest: chest wall non-tender, lungs clear, normal breath sounds, no respiratory distress, no accessory muscle use Cardiovascular: normal peripheral pulses, normal rate, regular rhythm, no gallop/murmur, no JVD Abdomen: normal bowel sounds, soft, non tender, no organomegaly, non distended , no mass Extremities: no cyanosis, no clubbing Skin: no rash, no lesions, ulcers - sacrum and hip Neurologic/Psychiatric: alert Lymphatic: no neck adenopathy, no groin adenopathy Microbiology Date/Time Source Procedure Growth Status 02/22/18 18:28 Blood Blood Culture - Preliminary NO GROWTH AFTER 48 HOURS Resulted 02/22/18 18:28 Blood Blood Culture - Preliminary NO GROWTH AFTER 48 HOURS Resulted Laboratory Tests Test 02/24/18 16:50 02/25/18 05:00 02/25/18 10:59 Vancomycin Level Trough 8.8 ug/mL (5.0-12.0) White Blood Count 11.7 K/UL (4.8-10.8) H Red Blood Count 2.87 M/UL (4.20-5.40) L Hemoglobin 7.9 G/DL (12.0-16.0) L Hematocrit 24.6 % (37.0-47.0) L Mean Corpuscular Volume 86 FL (80-99) Mean Corpuscular Hemoglobin 27.5 PG (27.0-31.0) Mean Corpuscular Hemoglobin Concent 32.2 G/DL (32.0-36.0) Red Cell Distribution Width 15.9 % (11.6-14.8) H Platelet Count 330 K/UL (150-450) Mean Platelet Volume 6.8 FL (6.5-10.1) Neutrophils (%) (Auto) % (45.0-75.0) Lymphocytes (%) (Auto) % (20.0-45.0) Monocytes (%) (Auto) % (1.0-10.0) Eosinophils (%) (Auto) % (0.0-3.0) Basophils (%) (Auto) % (0.0-2.0) Differential Total Cells Counted 100 Neutrophils % (Manual) 73 % (45-75) Lymphocytes % (Manual) 20 % (20-45) Monocytes % (Manual) 3 % (1-10) Eosinophils % (Manual) 4 % (0-3) H Basophils % (Manual) 0 % (0-2) Band Neutrophils 0 % (0-8) Platelet Estimate Adequate Platelet Morphology Normal Anisocytosis 1+ Sodium Level 143 MMOL/L (136-145) Potassium Level 3.9 MMOL/L (3.5-5.1) Chloride Level 108 MMOL/L (98-107) H Carbon Dioxide Level 30 MMOL/L (21-32) Anion Gap 5 mmol/L (5-15) Blood Urea Nitrogen 13 mg/dL (7-18) Creatinine 0.4 MG/DL (0.55-1.30) L Estimat Glomerular Filtration Rate mL/min (>60) Glucose Level 70 MG/DL (74-106) L Calcium Level 7.6 MG/DL (8.5-10.1) L Arterial Blood pH 7.440 (7.350-7.450) Arterial Blood Partial Pressure CO2 46.6 mmHg (35.0-45.0) H Arterial Blood Partial Pressure O2 79.9 mmHg (75.0-100.0) Arterial Blood HCO3 31.0 mmol/L (22.0-26.0) H Arterial Blood Oxygen Saturation 95.5 % (92.0-98.0) Arterial Blood Base Excess 6.2 Kang Test Positive Current Medications Medications (Trade) Dose Ordered Sig/Rosetta Route PRN Reason Start Time Stop Time Status Last Admin Dose Admin Acetaminophen (Tylenol) 650 mg Q4H PRN GT Mild Pain/Temp > 100.5 02/22/18 08:00 03/10/18 15:59 02/24/18 16:48 Ascorbic Acid (Vitamin C) 500 mg DAILY GT 02/22/18 09:00 03/07/18 08:59 02/25/18 08:26 Clonidine HCl (Catapres Tab) 0.1 mg Q8H PRN GT SBP >160 02/22/18 09:00 03/09/18 16:59 Dextrose (Dextrose 50%) 25 ml STAT PRN IV Hypoglycemia 02/22/18 16:00 03/11/18 15:59 Dextrose (Dextrose 50%) 50 ml STAT PRN IV Hypoglycemia 02/22/18 16:00 03/11/18 15:59 Digoxin (Lanoxin) 0.125 mg DAILY GT 02/22/18 09:00 03/07/18 08:59 02/25/18 08:25 Diltiazem HCl (Cardizem) 30 mg EVERY 8 HOURS ORAL 02/22/18 14:00 03/12/18 21:59 02/25/18 13:14 Enoxaparin Sodium (Lovenox) 30 mg Q24H SUBQ 02/22/18 09:00 03/07/18 08:59 02/24/18 09:39 Famotidine (Pepcid) 20 mg DAILY GT 02/22/18 09:00 03/10/18 08:59 02/25/18 08:25 Insulin Aspart (NovoLOG) EVERY 6 HOURS SUBQ 02/22/18 06:30 03/07/18 06:29 02/24/18 19:30 Lorazepam (Ativan 2mg/ml 1ml) 1 mg Q4H PRN IV For Anxiety 02/22/18 08:00 02/28/18 00:00 Meropenem 1 gm/ Sodium Chloride 110 ml @ 220 mls/hr Q12HR@0600,1800 IVPB 02/22/18 18:00 02/28/18 23:59 02/25/18 05:59 Vancomycin HCl (Vanco rx to dose) 1 ea DAILY PRN MISC Per rx protocol 02/22/18 16:45 03/24/18 16:44 Vancomycin HCl 1 gm/Dextrose 275 ml @ 183.708 mls/hr Q24H IVPB 02/24/18 18:00 03/01/18 17:59 02/24/18 18:44 Dom Hoffman M.D. Feb 25, 2018 16:13
--- NOTE | 2018-02-25 16:31 | Diagnostic Imaging Report ---
Indication: Dyspnea Comparison: 02/22/2018 A single view chest radiograph was obtained. Findings: Interstitial vascular prominence demonstrated. The left lung has reexpanded. Evidence of bilateral pleural effusions with hazy basilar opacities. Heart size is normal. Endotracheal tube tube is in good position. IMPRESSION: Pulmonary edema. Bilateral pleural effusions.
--- NOTE | 2018-02-25 17:35 | Cardiology Progress Note ---
Assessment/Plan Status: stable Assessment/Plan Assessment/Plan Assessment/Plan 1. Paroxysmal atrial fibrillation. In SR on digoxin 0.125 mg daily and Cardizem 30 tid. Off anticoagulation. Echo Nl EF. 2. Hypertension. On Cardizem 30 tid 3. Respiratory failure, on Vent now in ICU 4. Diabetes, on insulin. 5. Dementia. 6. Dysphagia, status post PEG 7. Sacral decubitus stage III. FU by Dr. Austin. 8. CVA with aphasia and contractures. Subjective Cardiovascular: Reports: no symptoms Respiratory: Reports: no symptoms Gastrointestinal/Abdominal: Reports: no symptoms Genitourinary: Reports: no symptoms Subjective no acute events, off pressors Objective Last 24 Hour Vital Signs Date Time Temp Pulse Resp B/P (MAP) Pulse Ox O2 Delivery O2 Flow Rate FiO2 02/25/18 17:05 75 15 40 02/25/18 15:12 73 16 40 02/25/18 15:00 72 17 110/43 (65) 100 02/25/18 14:00 68 17 98/60 (73) 100 02/25/18 13:14 90 127/62 02/25/18 13:00 79 20 127/62 (83) 94 02/25/18 12:55 77 18 40 02/25/18 12:09 96 02/25/18 12:00 40 02/25/18 12:00 99.4 93 17 127/61 (83) 98 99.4 02/25/18 12:00 Mechanical Ventilator 02/25/18 11:00 95 23 132/73 (92) 99 02/25/18 10:40 96 26 40 02/25/18 10:00 89 25 118/58 (78) 99 02/25/18 09:05 94 27 40 02/25/18 09:00 79 22 105/58 (74) 97 02/25/18 08:25 89 02/25/18 08:00 98.9 89 26 126/73 (90) 92 98.9 02/25/18 08:00 Mechanical Ventilator 02/25/18 08:00 40 02/25/18 07:39 79 02/25/18 07:00 85 22 100/55 (70) 93 02/25/18 06:45 72 19 40 02/25/18 06:00 74 22 115/55 (75) 93 02/25/18 06:00 75 129/60 02/25/18 05:22 79 20 40 02/25/18 05:00 78 20 112/60 (77) 93 02/25/18 04:00 98.2 77 20 129/60 (83) 96 98.2 02/25/18 04:00 77 02/25/18 04:00 Mechanical Ventilator 02/25/18 04:00 40 02/25/18 03:00 87 20 98/56 (70) 96 02/25/18 02:38 77 18 40 02/25/18 02:00 81 20 120/63 (82) 97 02/25/18 01:20 84 23 40 02/25/18 01:00 81 22 129/63 (85) 97 02/25/18 00:00 81 02/25/18 00:00 98.8 81 22 125/56 (79) 97 98.8 02/25/18 00:00 40 02/25/18 00:00 Mechanical Ventilator 02/24/18 23:00 84 22 125/56 (79) 97 02/24/18 22:57 85 17 40 02/24/18 22:27 81 121/72 02/24/18 22:00 84 20 115/60 (78) 100 02/24/18 21:02 82 22 40 02/24/18 21:00 83 20 121/72 (88) 100 02/24/18 20:00 40 02/24/18 20:00 Mechanical Ventilator 02/24/18 20:00 83 23 106/57 (73) 99 02/24/18 20:00 83 02/24/18 19:10 84 21 40 02/24/18 18:00 75 19 101/52 (68) 98 General Appearance: no apparent distress EENT: PERRL/EOMI Neck: non-tender Rhythm: NSR Cardiovascular: normal peripheral pulses Respiratory/Chest: chest wall non-tender Abdomen: normal bowel sounds Extremities: normal range of motion 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 Intake and Output 02/24/18 02/25/18 19:00 07:00 Intake Total 905 ml 890 ml Output Total 500 ml 611 ml Balance 405 ml 279 ml Free Water 100 ml IV Total 175 ml 110 ml Tube Feeding 480 ml 480 ml Other 150 ml 300 ml Output Urine Total 500 ml 610 ml Stool Total 1 ml # Bowel Movements 1 Laboratory Tests Test 02/25/18 05:00 02/25/18 10:59 White Blood Count 11.7 K/UL (4.8-10.8) H Red Blood Count 2.87 M/UL (4.20-5.40) L Hemoglobin 7.9 G/DL (12.0-16.0) L Hematocrit 24.6 % (37.0-47.0) L Mean Corpuscular Volume 86 FL (80-99) Mean Corpuscular Hemoglobin 27.5 PG (27.0-31.0) Mean Corpuscular Hemoglobin Concent 32.2 G/DL (32.0-36.0) Red Cell Distribution Width 15.9 % (11.6-14.8) H Platelet Count 330 K/UL (150-450) Mean Platelet Volume 6.8 FL (6.5-10.1) Neutrophils (%) (Auto) % (45.0-75.0) Lymphocytes (%) (Auto) % (20.0-45.0) Monocytes (%) (Auto) % (1.0-10.0) Eosinophils (%) (Auto) % (0.0-3.0) Basophils (%) (Auto) % (0.0-2.0) Differential Total Cells Counted 100 Neutrophils % (Manual) 73 % (45-75) Lymphocytes % (Manual) 20 % (20-45) Monocytes % (Manual) 3 % (1-10) Eosinophils % (Manual) 4 % (0-3) H Basophils % (Manual) 0 % (0-2) Band Neutrophils 0 % (0-8) Platelet Estimate Adequate Platelet Morphology Normal Anisocytosis 1+ Sodium Level 143 MMOL/L (136-145) Potassium Level 3.9 MMOL/L (3.5-5.1) Chloride Level 108 MMOL/L (98-107) H Carbon Dioxide Level 30 MMOL/L (21-32) Anion Gap 5 mmol/L (5-15) Blood Urea Nitrogen 13 mg/dL (7-18) Creatinine 0.4 MG/DL (0.55-1.30) L Estimat Glomerular Filtration Rate mL/min (>60) Glucose Level 70 MG/DL (74-106) L Calcium Level 7.6 MG/DL (8.5-10.1) L Arterial Blood pH 7.440 (7.350-7.450) Arterial Blood Partial Pressure CO2 46.6 mmHg (35.0-45.0) H Arterial Blood Partial Pressure O2 79.9 mmHg (75.0-100.0) Arterial Blood HCO3 31.0 mmol/L (22.0-26.0) H Arterial Blood Oxygen Saturation 95.5 % (92.0-98.0) Arterial Blood Base Excess 6.2 Kang Test Positive Microbiology Date/Time Source Procedure Growth Status 02/22/18 18:28 Blood Blood Culture - Preliminary NO GROWTH AFTER 48 HOURS Resulted 02/22/18 18:28 Blood Blood Culture - Preliminary NO GROWTH AFTER 48 HOURS Resulted Maxx Ureña M.D. Feb 25, 2018 17:35
[2018-02-25] MEDS: Vancomycin 1gm/D5W 275ml IVPB SCH ×2 (18:10)
[2018-02-26] VITALS (25 sets, daily range): BP systolic 91–137; BP diastolic 51–69
[2018-02-26] MEDS: Meropenem 1 GM in NS 110 ML IVPB SCH ×2 (05:42→17:56)
[2018-02-26] MEDS: dilTIAZem HCl 30mg tab ORAL SCH ×2 (05:43→14:30)
[2018-02-26] MEDS: NovoLOG Insulin Flexpen SUBQ SCH ×4 (05:44→18:01)
--- NOTE | 2018-02-26 07:09 | Pulmonology Progress Note ---
Assessment/Plan Assessment/Plan IMPRESSION: 1. Bilateral pneumonia. Improved. 2. Respiratory failure now intubated 3. Hypertension. 4. Diabetes mellitus. 5. Dehydration, hypernatremia 6. Tardive dyskinesia DISCUSSION: Discussed with PMD Will likely need trach Continue vent Will attempt wean; CXR is much improved with only small R effusion Subjective Interval Events: Remains intuabted Constitutional: Reports: no symptoms HEENT: Repors: no symptoms Respiratory: Reports: no symptoms Cardiovascular: Reports: no symptoms Gastrointestinal/Abdominal: Reports: no symptoms Genitourinary: Reports: no symptoms Allergies: Coded Allergies: No Known Allergies (Verified , 03/10/07) Objective Last 24 Hour Vital Signs Date Time Temp Pulse Resp B/P (MAP) Pulse Ox O2 Delivery O2 Flow Rate FiO2 02/26/18 06:00 78 17 105/58 (74) 99 02/26/18 05:43 80 116/62 02/26/18 05:20 77 18 40 02/26/18 05:00 78 18 116/62 (80) 98 02/26/18 04:00 74 02/26/18 04:00 Mechanical Ventilator 02/26/18 04:00 98.3 75 22 115/69 (84) 97 98.3 02/26/18 03:25 74 17 40 02/26/18 03:00 103 21 99/56 (70) 100 02/26/18 02:00 73 15 100/55 (70) 98 02/26/18 01:09 71 20 40 02/26/18 00:58 95 18 106/53 (70) 95 02/26/18 00:00 73 02/26/18 00:00 40 02/26/18 00:00 97.7 75 20 110/59 (76) 95 97.7 02/26/18 00:00 Mechanical Ventilator 02/25/18 23:21 78 21 40 02/25/18 23:00 78 20 110/59 (76) 98 02/25/18 22:00 78 17 113/58 (76) 98 02/25/18 21:30 81 18 40 02/25/18 21:29 77 105/57 02/25/18 21:00 77 17 107/57 (74) 98 02/25/18 20:00 98.3 80 20 118/53 (74) 97 98.3 02/25/18 20:00 80 7/12/18 20:00 40 02/25/18 20:00 Mechanical Ventilator 02/25/18 19:17 77 17 40 02/25/18 19:00 83 20 106/53 (70) 99 02/25/18 18:00 99.1 80 18 114/58 (76) 96 99.1 02/25/18 17:05 75 15 40 02/25/18 17:00 73 15 102/63 (76) 97 02/25/18 16:04 81 02/25/18 16:00 Mechanical Ventilator 02/25/18 16:00 73 18 105/64 (78) 98 02/25/18 16:00 40 02/25/18 15:12 73 16 40 02/25/18 15:00 72 17 110/43 (65) 100 02/25/18 14:00 68 17 98/60 (73) 100 02/25/18 13:14 90 127/62 02/25/18 13:00 79 20 127/62 (83) 94 02/25/18 12:55 77 18 40 02/25/18 12:09 96 02/25/18 12:00 40 02/25/18 12:00 99.4 93 17 127/61 (83) 98 99.4 02/25/18 12:00 Mechanical Ventilator 02/25/18 11:00 95 23 132/73 (92) 99 02/25/18 10:40 96 26 40 02/25/18 10:00 89 25 118/58 (78) 99 02/25/18 09:05 94 27 40 02/25/18 09:00 79 22 105/58 (74) 97 02/25/18 08:25 89 02/25/18 08:00 98.9 89 26 126/73 (90) 92 98.9 02/25/18 08:00 Mechanical Ventilator 02/25/18 08:00 40 02/25/18 07:39 79 Intake and Output 02/25/18 02/26/18 19:00 07:00 Intake Total 973.708 ml 823.708 ml Output Total 910 ml 700 ml Balance 63.708 ml 123.708 ml Free Water 200 ml IV Total 293.708 ml 183.708 ml Tube Feeding 480 ml 440 ml Other 200 ml Output Urine Total 910 ml 700 ml # Bowel Movements 2 2 General Appearance: no acute distress HEENT: normocephalic Respiratory/Chest: chest wall non-tender, lungs clear Cardiovascular: normal peripheral pulses, normal rate Abdomen: normal bowel sounds Laboratory Tests 02/25/18 10:59: Arterial Blood pH 7.440, Arterial Blood Partial Pressure CO2 46.6H, Arterial Blood Partial Pressure O2 79.9, Arterial Blood HCO3 31.0H, Arterial Blood Oxygen Saturation 95.5, Arterial Blood Base Excess 6.2, Kang Test Positive 02/26/18 05:51: Sodium Level [Pending], Potassium Level [Pending], Chloride Level [Pending], Carbon Dioxide Level [Pending], Blood Urea Nitrogen [Pending], Creatinine [ Pending], Estimat Glomerular Filtration Rate [Pending], Glucose Level [Pending] , Calcium Level [Pending] Current Medications Medications (Trade) Dose Ordered Sig/Rosetta Route PRN Reason Start Time Stop Time Status Last Admin Dose Admin Acetaminophen (Tylenol) 650 mg Q4H PRN GT Mild Pain/Temp > 100.5 02/22/18 08:00 03/10/18 15:59 02/24/18 16:48 Ascorbic Acid (Vitamin C) 500 mg DAILY GT 02/22/18 09:00 03/07/18 08:59 02/25/18 08:26 Clonidine HCl (Catapres Tab) 0.1 mg Q8H PRN GT SBP >160 02/22/18 09:00 03/09/18 16:59 Dextrose (Dextrose 50%) 25 ml STAT PRN IV Hypoglycemia 02/22/18 16:00 03/11/18 15:59 Dextrose (Dextrose 50%) 50 ml STAT PRN IV Hypoglycemia 02/22/18 16:00 03/11/18 15:59 Digoxin (Lanoxin) 0.125 mg DAILY GT 02/22/18 09:00 03/07/18 08:59 02/25/18 08:25 Diltiazem HCl (Cardizem) 30 mg EVERY 8 HOURS ORAL 02/22/18 14:00 03/12/18 21:59 02/26/18 05:43 Enoxaparin Sodium (Lovenox) 30 mg Q24H SUBQ 02/22/18 09:00 03/07/18 08:59 02/24/18 09:39 Famotidine (Pepcid) 20 mg DAILY GT 02/22/18 09:00 03/10/18 08:59 02/25/18 08:25 Insulin Aspart (NovoLOG) EVERY 6 HOURS SUBQ 02/22/18 06:30 03/07/18 06:29 02/26/18 05:44 Lorazepam (Ativan 2mg/ml 1ml) 1 mg Q4H PRN IV For Anxiety 02/22/18 08:00 02/28/18 00:00 Meropenem 1 gm/ Sodium Chloride 110 ml @ 220 mls/hr Q12HR@0600,1800 IVPB 02/22/18 18:00 02/28/18 23:59 02/26/18 05:42 Vancomycin HCl (Vanco rx to dose) 1 ea DAILY PRN MISC Per rx protocol 02/22/18 16:45 03/24/18 16:44 Vancomycin HCl 1 gm/Dextrose 275 ml @ 183.708 mls/hr Q24H IVPB 02/24/18 18:00 03/01/18 17:59 02/25/18 18:10 Jan Sawant MD Feb 26, 2018 07:09
[2018-02-26 07:12] LABS: ANION GAP 4 mmol/L (5-15); BLOOD UREA NITROGEN 11 mg/dL (7-18); CALCIUM 7.8 MG/DL (8.5-10.1); CARBON DIOXIDE 31 MMOL/L (21-32); CHLORIDE 101 MMOL/L (98-107); CREATININE 0.4 MG/DL (0.55-1.30); POTASSIUM 4.1 MMOL/L (3.5-5.1); SODIUM 136 MMOL/L (136-145)
--- NOTE | 2018-02-26 08:29 | Nephrology Progress Note ---
Assessment/Plan Assessment/Plan 1. Sepsis - Abx 2. Sacral Decub- Gen Surg 3. Hyernatremia- resolved 4. Resp [place]- Patient intubated - appreciate Pulm assistance with vent mgmt. Awaiting conservatee for trach 5. AFib- digoxin + cardizem 6. DVT prophylaxis- lovenox 7. Hypokalemia- replace prn Subjective Date patient seen: Feb 26, 2018 Time patient seen: 08:24 ROS Limited/Unobtainable: Yes Allergies: Coded Allergies: No Known Allergies (Verified , 03/10/07) Subjective Patient intubated. No changes. Poss weaning Objective Last 24 Hour Vital Signs Date Time Temp Pulse Resp B/P (MAP) Pulse Ox O2 Delivery O2 Flow Rate FiO2 02/26/18 08:00 40 02/26/18 08:00 75 02/26/18 08:00 98.0 81 23 112/53 (72) 100 98.0 02/26/18 08:00 Mechanical Ventilator 02/26/18 07:00 79 22 103/60 (74) 100 02/26/18 06:00 78 17 105/58 (74) 99 02/26/18 05:43 80 116/62 02/26/18 05:20 77 18 40 02/26/18 05:00 78 18 116/62 (80) 98 02/26/18 04:00 74 02/26/18 04:00 Mechanical Ventilator 02/26/18 04:00 98.3 75 22 115/69 (84) 97 98.3 02/26/18 03:25 74 17 40 02/26/18 03:00 103 21 99/56 (70) 100 02/26/18 02:00 73 15 100/55 (70) 98 02/26/18 01:09 71 20 40 02/26/18 00:58 95 18 106/53 (70) 95 02/26/18 00:00 73 02/26/18 00:00 40 02/26/18 00:00 97.7 75 20 110/59 (76) 95 97.7 02/26/18 00:00 Mechanical Ventilator 02/25/18 23:21 78 21 40 02/25/18 23:00 78 20 110/59 (76) 98 02/25/18 22:00 78 17 113/58 (76) 98 02/25/18 21:30 81 18 40 02/25/18 21:29 77 105/57 02/25/18 21:00 77 17 107/57 (74) 98 02/25/18 20:00 98.3 80 20 118/53 (74) 97 98.3 02/25/18 20:00 80 02/25/18 20:00 40 02/25/18 20:00 Mechanical Ventilator 02/25/18 19:17 77 17 40 02/25/18 19:00 83 20 106/53 (70) 99 02/25/18 18:00 99.1 80 18 114/58 (76) 96 99.1 02/25/18 17:05 75 15 40 02/25/18 17:00 73 15 102/63 (76) 97 02/25/18 16:04 81 02/25/18 16:00 Mechanical Ventilator 02/25/18 16:00 73 18 105/64 (78) 98 02/25/18 16:00 40 02/25/18 15:12 73 16 40 02/25/18 15:00 72 17 110/43 (65) 100 02/25/18 14:00 68 17 98/60 (73) 100 02/25/18 13:14 90 127/62 02/25/18 13:00 79 20 127/62 (83) 94 02/25/18 12:55 77 18 40 02/25/18 12:09 96 02/25/18 12:00 40 02/25/18 12:00 99.4 93 17 127/61 (83) 98 99.4 02/25/18 12:00 Mechanical Ventilator 02/25/18 11:00 95 23 132/73 (92) 99 02/25/18 10:40 96 26 40 02/25/18 10:00 89 25 118/58 (78) 99 02/25/18 09:05 94 27 40 02/25/18 09:00 79 22 105/58 (74) 97 02/25/18 08:25 89 Intake and Output 02/25/18 02/26/18 19:00 07:00 Intake Total 973.708 ml 863.708 ml Output Total 910 ml 750 ml Balance 63.708 ml 113.708 ml Free Water 200 ml IV Total 293.708 ml 183.708 ml Tube Feeding 480 ml 480 ml Other 200 ml Output Urine Total 910 ml 750 ml # Bowel Movements 2 2 Laboratory Tests 02/25/18 10:59: Arterial Blood pH 7.440, Arterial Blood Partial Pressure CO2 46.6H, Arterial Blood Partial Pressure O2 79.9, Arterial Blood HCO3 31.0H, Arterial Blood Oxygen Saturation 95.5, Arterial Blood Base Excess 6.2, Kang Test Positive 02/26/18 05:51: Sodium Level 136, Potassium Level 4.1, Chloride Level 101, Carbon Dioxide Level 31, Anion Gap 4L, Blood Urea Nitrogen 11, Creatinine 0.4L, Estimat Glomerular Filtration Rate , Glucose Level 95, Calcium Level 7.8L Height (Feet): 4 Height (Inches): 0.00 Weight (Pounds): 108 General Appearance: other - intubated EENT: PERRL/EOMI Neck: normal alignment, supple Cardiovascular: normal rate, regular rhythm Respiratory/Chest: lungs clear, normal breath sounds Abdomen: normal bowel sounds, non tender, soft Edema: no edema noted Arm (L), no edema noted Arm (R), no edema noted Leg (L), no edema noted Leg (R), no edema noted Pedal (L), no edema noted Pedal (R), no edema noted Generalized Jorge Graf M.D. Feb 26, 2018 08:29
[2018-02-26] MEDS ORDERED: Ascorbic Acid 500mg tab ORAL SCH (09:00)
[2018-02-26] MEDS: Digoxin 0.125mg tab GT SCH (09:47)
[2018-02-26] MEDS: Ascorbic Acid 500mg tab GT SCH (09:47)
[2018-02-26] MEDS: Enoxaparin 30mg Inj SUBQ SCH (09:48)
[2018-02-26] MEDS ORDERED: NS 275ml ONE (14:27)
[2018-02-26] MEDS ORDERED: NS 500ML ONE (14:27)
[2018-02-26] MEDS ORDERED: Tubing IV Secondary IV ONE (14:27)
--- NOTE | 2018-02-26 15:48 | Cardiology Progress Note ---
Assessment/Plan Status: stable Assessment/Plan Assessment/Plan Assessment/Plan 1. Paroxysmal atrial fibrillation. In SR on digoxin 0.125 mg daily and Cardizem 30 tid. Off anticoagulation. Echo Nl EF. 2. Hypertension. On Cardizem 30 tid 3. Respiratory failure, on Vent now in ICU 4. Diabetes, on insulin. 5. Dementia. 6. Dysphagia, status post PEG 7. Sacral decubitus stage III. FU by Dr. Austin. 8. CVA with aphasia and contractures. 9. Trach for prolonged intubation Subjective Cardiovascular: Reports: no symptoms Respiratory: Reports: no symptoms Gastrointestinal/Abdominal: Reports: no symptoms Genitourinary: Reports: no symptoms Subjective no acute events, off pressors. Remains on vent, no changes Objective Last 24 Hour Vital Signs Date Time Temp Pulse Resp B/P (MAP) Pulse Ox O2 Delivery O2 Flow Rate FiO2 02/26/18 15:15 85 23 40 02/26/18 15:00 81 22 105/56 (72) 95 02/26/18 14:30 86 131/68 02/26/18 14:00 85 22 131/68 (89) 98 02/26/18 13:00 88 23 126/63 (84) 98 02/26/18 12:42 77 20 40 02/26/18 12:00 Mechanical Ventilator 02/26/18 12:00 73 02/26/18 12:00 98.1 71 22 106/59 (75) 100 98.1 02/26/18 11:24 40 02/26/18 11:24 96 23 40 02/26/18 11:00 93 30 134/66 (88) 97 02/26/18 10:00 85 30 122/65 (84) 99 02/26/18 09:47 77 02/26/18 09:25 100 02/26/18 09:24 40 02/26/18 09:22 86 25 40 02/26/18 09:00 79 20 118/61 (80) 98 02/26/18 08:00 40 02/26/18 08:00 75 02/26/18 08:00 98.0 81 23 112/53 (72) 100 98.0 02/26/18 08:00 Mechanical Ventilator 02/26/18 07:05 78 17 40 02/26/18 07:00 79 22 103/60 (74) 100 02/26/18 06:00 78 17 105/58 (74) 99 02/26/18 05:43 80 116/62 02/26/18 05:20 77 18 40 02/26/18 05:00 78 18 116/62 (80) 98 02/26/18 04:00 74 02/26/18 04:00 Mechanical Ventilator 02/26/18 04:00 98.3 75 22 115/69 (84) 97 98.3 02/26/18 03:25 74 17 40 02/26/18 03:00 103 21 99/56 (70) 100 02/26/18 02:00 73 15 100/55 (70) 98 02/26/18 01:09 71 20 40 02/26/18 00:58 95 18 106/53 (70) 95 02/26/18 00:00 73 02/26/18 00:00 40 02/26/18 00:00 97.7 75 20 110/59 (76) 95 97.7 02/26/18 00:00 Mechanical Ventilator 02/25/18 23:21 78 21 40 02/25/18 23:00 78 20 110/59 (76) 98 02/25/18 22:00 78 17 113/58 (76) 98 02/25/18 21:30 81 18 40 02/25/18 21:29 77 105/57 02/25/18 21:00 77 17 107/57 (74) 98 02/25/18 20:00 98.3 80 20 118/53 (74) 97 98.3 02/25/18 20:00 80 02/25/18 20:00 40 02/25/18 20:00 Mechanical Ventilator 02/25/18 19:17 77 17 40 02/25/18 19:00 83 20 106/53 (70) 99 02/25/18 18:00 99.1 80 18 114/58 (76) 96 99.1 02/25/18 17:05 75 15 40 02/25/18 17:00 73 15 102/63 (76) 97 02/25/18 16:04 81 02/25/18 16:00 Mechanical Ventilator 02/25/18 16:00 73 18 105/64 (78) 98 02/25/18 16:00 40 General Appearance: no apparent distress, on vent EENT: PERRL/EOMI Neck: normal alignment Rhythm: NSR Cardiovascular: normal peripheral pulses Respiratory/Chest: lungs clear Abdomen: normal bowel sounds Extremities: normal range of motion 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 normal Intake and Output 02/25/18 02/26/18 18:59 06:59 Intake Total 1183.708 ml 863.708 ml Output Total 960 ml 710 ml Balance 223.708 ml 153.708 ml Free Water 200 ml IV Total 403.708 ml 183.708 ml Tube Feeding 480 ml 480 ml Other 300 ml Output Urine Total 960 ml 710 ml # Bowel Movements 2 2 Laboratory Tests Test 02/26/18 05:51 Sodium Level 136 MMOL/L (136-145) Potassium Level 4.1 MMOL/L (3.5-5.1) Chloride Level 101 MMOL/L (98-107) Carbon Dioxide Level 31 MMOL/L (21-32) Anion Gap 4 mmol/L (5-15) L Blood Urea Nitrogen 11 mg/dL (7-18) Creatinine 0.4 MG/DL (0.55-1.30) L Estimat Glomerular Filtration Rate mL/min (>60) Glucose Level 95 MG/DL (74-106) Calcium Level 7.8 MG/DL (8.5-10.1) L Maxx Ureña M.D. Feb 26, 2018 15:48
[2018-02-26] MEDS: Vancomycin 1gm/D5W 275ml IVPB SCH ×2 (18:34)
[2018-02-26] MEDS ORDERED: Metoprolol 5mg/5ml Inj IVP SCH (20:15)
[2018-02-26] MEDS: dilTIAZem HCl 90mg tab ORAL SCH (21:48)
[2018-02-27] VITALS (22 sets, daily range): BP systolic 96–126; BP diastolic 49–85
[2018-02-27] MEDS: NovoLOG Insulin Flexpen SUBQ SCH ×5 (00:24→23:34)
[2018-02-27] MEDS: Meropenem 1 GM in NS 110 ML IVPB SCH ×2 (06:10→18:00)
[2018-02-27] MEDS: dilTIAZem HCl 90mg tab ORAL SCH ×3 (06:17→21:30)
--- NOTE | 2018-02-27 07:41 | Nephrology Progress Note ---
Assessment/Plan Assessment/Plan 1. Sepsis - Abx 2. Sacral Decub- Gen Surg 3. Hyernatremia- resolved. Check labs qod 4. Resp [place]- Patient intubated - Pulm assistance with vent mgmt. Awaiting conservatee for trach 5. AFib- digoxin + cardizem 6. DVT prophylaxis- lovenox 7. Hypokalemia- replace prn Subjective Date patient seen: Feb 27, 2018 Time patient seen: 07:40 ROS Limited/Unobtainable: Yes Allergies: Coded Allergies: No Known Allergies (Verified , 03/10/07) Subjective Patient remains intubated Objective Last 24 Hour Vital Signs Date Time Temp Pulse Resp B/P (MAP) Pulse Ox O2 Delivery O2 Flow Rate FiO2 02/27/18 07:00 72 22 116/56 (76) 100 02/27/18 06:45 81 19 60 02/27/18 06:17 96 112/85 02/27/18 06:00 101 22 112/85 (94) 100 02/27/18 05:17 88 23 60 02/27/18 04:00 100 22 125/66 (85) 100 02/27/18 04:00 100 02/27/18 04:00 Mechanical Ventilator 02/27/18 04:00 100 02/27/18 03:00 88 29 60 02/27/18 03:00 92 22 125/66 (85) 100 02/27/18 02:00 76 23 118/74 (89) 100 02/27/18 01:30 80 20 60 02/27/18 01:00 80 24 111/54 (73) 100 02/27/18 00:00 76 21 96/55 (69) 100 02/27/18 00:00 80 02/27/18 00:00 Mechanical Ventilator 02/27/18 00:00 60 02/27/18 00:00 100 02/26/18 23:30 91 21 60 02/26/18 23:00 81 20 95/55 (68) 100 02/26/18 22:00 73 27 91/56 (68) 98 02/26/18 21:48 80 112/69 02/26/18 21:09 92 20 60 02/26/18 21:00 84 27 112/69 (83) 98 02/26/18 20:15 82 94/63 02/26/18 20:00 112 02/26/18 20:00 Mechanical Ventilator 02/26/18 20:00 100 02/26/18 20:00 85 26 60 02/26/18 20:00 132 26 94/63 (73) 100 02/26/18 19:45 97.9 142 22 99/62 (74) 98 97.9 02/26/18 19:00 102 26 112/51 (71) 100 02/26/18 18:00 96 26 137/67 (90) 90 02/26/18 17:06 89 27 40 02/26/18 17:00 85 22 123/63 (83) 100 02/26/18 16:00 Mechanical Ventilator 02/26/18 16:00 40 02/26/18 16:00 69 02/26/18 16:00 98.1 85 22 114/67 (83) 96 98.1 02/26/18 15:15 85 23 40 02/26/18 15:00 81 22 105/56 (72) 95 02/26/18 14:30 86 131/68 02/26/18 14:00 85 22 131/68 (89) 98 02/26/18 13:00 88 23 126/63 (84) 98 02/26/18 12:42 77 20 40 02/26/18 12:00 Mechanical Ventilator 02/26/18 12:00 73 02/26/18 12:00 98.1 71 22 106/59 (75) 100 98.1 02/26/18 11:24 40 02/26/18 11:24 96 23 40 02/26/18 11:00 93 30 134/66 (88) 97 02/26/18 10:00 85 30 122/65 (84) 99 02/26/18 09:47 77 02/26/18 09:25 100 02/26/18 09:24 40 02/26/18 09:22 86 25 40 02/26/18 09:00 79 20 118/61 (80) 98 02/26/18 08:00 40 02/26/18 08:00 75 02/26/18 08:00 98.0 81 23 112/53 (72) 100 98.0 02/26/18 08:00 Mechanical Ventilator Intake and Output 02/26/18 02/27/18 19:00 07:00 Intake Total 880 ml 555 ml Output Total 780 ml 785 ml Balance 100 ml -230 ml Free Water 300 ml Tube Feeding 530 ml 495 ml Other 50 ml 60 ml Output Urine Total 780 ml 785 ml # Bowel Movements 3 Height (Feet): 4 Height (Inches): 0.00 Weight (Pounds): 86 General Appearance: no apparent distress, lethargic EENT: normal ENT inspection Neck: normal alignment, supple Cardiovascular: normal rate, regular rhythm Respiratory/Chest: rhonchi - bilaterally Abdomen: non tender, soft Edema: no edema noted Arm (L), no edema noted Arm (R), no edema noted Leg (L), no edema noted Leg (R), no edema noted Pedal (L), no edema noted Pedal (R), no edema noted Generalized Jorge Graf M.D. Feb 27, 2018 07:41
--- NOTE | 2018-02-27 08:13 | Pulmonology Progress Note ---
Assessment/Plan Assessment/Plan IMPRESSION: 1. Bilateral pneumonia. Improved. 2. Respiratory failure now intubated; remains hypoxemic with 60% FiO2 3. Hypertension. 4. Diabetes mellitus. 5. Dehydration, hypernatremia 6. Tardive dyskinesia 7. Anemia DISCUSSION: Discussed with PMD Will likely need trach Continue vent Will attempt wean; CXR is much improved however has small bilateral effusions Will add Lasix Will transfuse to improve oxygenation Subjective Interval Events: Remains intubated; failed wean yesterday Constitutional: Reports: no symptoms HEENT: Repors: no symptoms Respiratory: Reports: no symptoms Cardiovascular: Reports: no symptoms Gastrointestinal/Abdominal: Reports: no symptoms Genitourinary: Reports: no symptoms Neurologic: Reports: no symptoms Allergies: Coded Allergies: No Known Allergies (Verified , 03/10/07) Objective Last 24 Hour Vital Signs Date Time Temp Pulse Resp B/P (MAP) Pulse Ox O2 Delivery O2 Flow Rate FiO2 02/27/18 07:00 72 22 116/56 (76) 100 02/27/18 06:45 81 19 60 02/27/18 06:17 96 112/85 02/27/18 06:00 101 22 112/85 (94) 100 02/27/18 05:17 88 23 60 02/27/18 04:00 100 22 125/66 (85) 100 02/27/18 04:00 100 02/27/18 04:00 Mechanical Ventilator 02/27/18 04:00 100 02/27/18 03:00 88 29 60 02/27/18 03:00 92 22 125/66 (85) 100 02/27/18 02:00 76 23 118/74 (89) 100 02/27/18 01:30 80 20 60 02/27/18 01:00 80 24 111/54 (73) 100 02/27/18 00:00 76 21 96/55 (69) 100 02/27/18 00:00 80 02/27/18 00:00 Mechanical Ventilator 02/27/18 00:00 60 02/27/18 00:00 100 02/26/18 23:30 91 21 60 02/26/18 23:00 81 20 95/55 (68) 100 02/26/18 22:00 73 27 91/56 (68) 98 02/26/18 21:48 80 112/69 02/26/18 21:09 92 20 60 02/26/18 21:00 84 27 112/69 (83) 98 02/26/18 20:15 82 94/63 02/26/18 20:00 112 02/26/18 20:00 Mechanical Ventilator 02/26/18 20:00 100 02/26/18 20:00 85 26 60 02/26/18 20:00 132 26 94/63 (73) 100 02/26/18 19:45 97.9 142 22 99/62 (74) 98 97.9 02/26/18 19:00 102 26 112/51 (71) 100 02/26/18 18:00 96 26 137/67 (90) 90 02/26/18 17:06 89 27 40 02/26/18 17:00 85 22 123/63 (83) 100 02/26/18 16:00 Mechanical Ventilator 02/26/18 16:00 40 02/26/18 16:00 69 02/26/18 16:00 98.1 85 22 114/67 (83) 96 98.1 02/26/18 15:15 85 23 40 02/26/18 15:00 81 22 105/56 (72) 95 02/26/18 14:30 86 131/68 02/26/18 14:00 85 22 131/68 (89) 98 02/26/18 13:00 88 23 126/63 (84) 98 02/26/18 12:42 77 20 40 02/26/18 12:00 Mechanical Ventilator 02/26/18 12:00 73 02/26/18 12:00 98.1 71 22 106/59 (75) 100 98.1 02/26/18 11:24 40 02/26/18 11:24 96 23 40 02/26/18 11:00 93 30 134/66 (88) 97 02/26/18 10:00 85 30 122/65 (84) 99 02/26/18 09:47 77 02/26/18 09:25 100 02/26/18 09:24 40 02/26/18 09:22 86 25 40 02/26/18 09:00 79 20 118/61 (80) 98 Intake and Output 02/26/18 02/27/18 19:00 07:00 Intake Total 880 ml 555 ml Output Total 780 ml 785 ml Balance 100 ml -230 ml Free Water 300 ml Tube Feeding 530 ml 495 ml Other 50 ml 60 ml Output Urine Total 780 ml 785 ml # Bowel Movements 3 General Appearance: no acute distress HEENT: normocephalic Respiratory/Chest: chest wall non-tender, lungs clear Cardiovascular: normal peripheral pulses, normal rate Abdomen: normal bowel sounds Current Medications Medications (Trade) Dose Ordered Sig/Ros[place] Route PRN Reason Start Time Stop Time Status Last Admin Dose Admin Acetaminophen (Tylenol) 650 mg Q4H PRN GT Mild Pain/Temp > 100.5 02/22/18 08:00 03/10/18 15:59 02/24/18 16:48 Ascorbic Acid (Vitamin C) 500 mg DAILY GT 02/22/18 09:00 03/07/18 08:59 02/26/18 09:47 Clonidine HCl (Catapres Tab) 0.1 mg Q8H PRN GT SBP >160 02/22/18 09:00 03/09/18 16:59 Dextrose (Dextrose 50%) 25 ml STAT PRN IV Hypoglycemia 02/22/18 16:00 03/11/18 15:59 Dextrose (Dextrose 50%) 50 ml STAT PRN IV Hypoglycemia 02/22/18 16:00 03/11/18 15:59 Digoxin (Lanoxin) 0.125 mg DAILY GT 02/22/18 09:00 03/07/18 08:59 02/26/18 09:47 Diltiazem HCl (Cardizem) 90 mg EVERY 8 HOURS ORAL 02/26/18 22:00 03/12/18 21:59 02/27/18 06:17 Enoxaparin Sodium (Lovenox) 30 mg Q24H SUBQ 02/22/18 09:00 03/07/18 08:59 02/26/18 09:48 Famotidine (Pepcid) 20 mg DAILY GT 02/22/18 09:00 03/10/18 08:59 02/26/18 09:47 Insulin Aspart (NovoLOG) EVERY 6 HOURS SUBQ 02/22/18 06:30 03/07/18 06:29 02/27/18 06:13 Lorazepam (Ativan 2mg/ml 1ml) 1 mg Q4H PRN IV For Anxiety 02/22/18 08:00 02/28/18 00:00 Meropenem 1 gm/ Sodium Chloride 110 ml @ 220 mls/hr Q12HR@0600,1800 IVPB 02/22/18 18:00 02/28/18 23:59 02/27/18 06:10 Vancomycin HCl (Vanco rx to dose) 1 ea DAILY PRN MISC Per rx protocol 02/22/18 16:45 03/24/18 16:44 Vancomycin HCl 1 gm/Dextrose 275 ml @ 183.708 mls/hr Q24H IVPB 02/24/18 18:00 03/01/18 17:59 02/26/18 18:34 Jan Sawant MD Feb 27, 2018 08:13
[2018-02-27] MEDS: Enoxaparin 30mg Inj SUBQ SCH (09:00)
[2018-02-27] MEDS: Ascorbic Acid 500mg tab GT SCH (09:29)
[2018-02-27] MEDS: Digoxin 0.125mg tab GT SCH (09:29)
--- NOTE | 2018-02-27 14:44 | Infectious Diseases Prog Note ---
Assessment/Plan Problems: (1) HCAP (healthcare-associated pneumonia) Assessment & Plan: with left lung total white out , suspect mucous plug resolved , S/P intubation due to worsening respiratory failure . sputum culture grew normal anjel so far , continue vancomycin and meropenem empiric coverage for now , monitor CXR . pulmonary is following. 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 continue local wound care and dressing changes as per hospital protocol . was evaluated by general surgery (3) Sepsis Assessment & Plan: ruled out with repeated blood culture is negative x4 . (4) Acute respiratory failure Assessment & Plan: now chronic and ventilator dependant , pulmonary is following, monitor CXR and ABG . she may need tracheostomy Subjective ROS Limited/Unobtainable: Yes Allergies: Coded Allergies: No Known Allergies (Verified , 03/10/07) Subjective she is intubated on mechanical ventilation , in ICU, awake, and comfortable, no fever, or chills , had mild secretions from ET tube . Objective Vital Signs Last 24 Hour Vital Signs Date Time Temp Pulse Resp B/P (MAP) Pulse Ox O2 Delivery O2 Flow Rate FiO2 02/27/18 13:00 89 22 107/69 (82) 100 02/27/18 12:54 81 24 90 02/27/18 12:00 97 02/27/18 12:00 93 22 121/67 (85) 100 02/27/18 12:00 Mechanical Ventilator 02/27/18 12:00 60 02/27/18 11:36 100 02/27/18 11:28 96 31 60 02/27/18 11:00 87 22 112/58 (76) 100 02/27/18 10:00 93 22 119/66 (83) 100 02/27/18 09:29 84 02/27/18 09:15 84 21 60 02/27/18 09:00 93 22 101/57 (72) 100 02/27/18 08:00 100 02/27/18 08:00 Mechanical Ventilator 02/27/18 08:00 100 02/27/18 08:00 98.8 73 22 101/61 (74) 100 98.8 02/27/18 07:00 72 22 116/56 (76) 100 02/27/18 06:45 81 19 60 02/27/18 06:17 96 112/85 7/14/18 06:00 101 22 112/85 (94) 100 02/27/18 05:17 88 23 60 02/27/18 04:00 100 22 125/66 (85) 100 02/27/18 04:00 100 02/27/18 04:00 Mechanical Ventilator 02/27/18 04:00 100 02/27/18 03:00 88 29 60 02/27/18 03:00 92 22 125/66 (85) 100 02/27/18 02:00 76 23 118/74 (89) 100 02/27/18 01:30 80 20 60 02/27/18 01:00 80 24 111/54 (73) 100 02/27/18 00:00 76 21 96/55 (69) 100 02/27/18 00:00 80 02/27/18 00:00 Mechanical Ventilator 02/27/18 00:00 60 02/27/18 00:00 100 02/26/18 23:30 91 21 60 02/26/18 23:00 81 20 95/55 (68) 100 02/26/18 22:00 73 27 91/56 (68) 98 02/26/18 21:48 80 112/69 02/26/18 21:09 92 20 60 02/26/18 21:00 84 27 112/69 (83) 98 02/26/18 20:15 82 94/63 02/26/18 20:00 112 02/26/18 20:00 Mechanical Ventilator 02/26/18 20:00 100 02/26/18 20:00 85 26 60 02/26/18 20:00 132 26 94/63 (73) 100 02/26/18 19:45 97.9 142 22 99/62 (74) 98 97.9 02/26/18 19:00 102 26 112/51 (71) 100 02/26/18 18:00 96 26 137/67 (90) 90 02/26/18 17:06 89 27 40 02/26/18 17:00 85 22 123/63 (83) 100 02/26/18 16:00 Mechanical Ventilator 02/26/18 16:00 40 02/26/18 16:00 69 02/26/18 16:00 98.1 85 22 114/67 (83) 96 98.1 02/26/18 15:15 85 23 40 7/13/18 15:00 81 22 105/56 (72) 95 Height (Feet): 4 Height (Inches): 0.00 Weight (Pounds): 86 General Appearance: WD/WN, cachetic HEENT: normocephalic, atraumatic, anicteric, mucous membranes moist, supple, no JVD, other - intubated on mechanical ventilation Respiratory/Chest: chest wall non-tender, normal breath sounds, no respiratory distress, no accessory muscle use, decreased breath sounds Cardiovascular: normal peripheral pulses, normal rate, regular rhythm, no gallop/murmur, no JVD Abdomen: normal bowel sounds, soft, non tender, no organomegaly, non distended , no mass, no scars Extremities: no cyanosis, no clubbing Skin: no rash, no lesions, ulcers - sacral and hip Neurologic/Psychiatric: alert, unresponsiveness, other - intubated Current Medications Medications (Trade) Dose Ordered Sig/Rosetta Route PRN Reason Start Time Stop Time Status Last Admin Dose Admin Acetaminophen (Tylenol) 650 mg Q4H PRN GT Mild Pain/Temp > 100.5 02/22/18 08:00 03/10/18 15:59 02/24/18 16:48 Ascorbic Acid (Vitamin C) 500 mg DAILY GT 02/22/18 09:00 03/07/18 08:59 02/27/18 09:29 Clonidine HCl (Catapres Tab) 0.1 mg Q8H PRN GT SBP >160 02/22/18 09:00 03/09/18 16:59 Dextrose (Dextrose 50%) 25 ml STAT PRN IV Hypoglycemia 02/22/18 16:00 03/11/18 15:59 Dextrose (Dextrose 50%) 50 ml STAT PRN IV Hypoglycemia 02/22/18 16:00 03/11/18 15:59 Digoxin (Lanoxin) 0.125 mg DAILY GT 02/22/18 09:00 03/07/18 08:59 02/27/18 09:29 Diltiazem HCl (Cardizem) 90 mg EVERY 8 HOURS ORAL 02/26/18 22:00 03/12/18 21:59 02/27/18 06:17 Enoxaparin Sodium (Lovenox) 30 mg Q24H SUBQ 02/22/18 09:00 03/07/18 08:59 02/26/18 09:48 Famotidine (Pepcid) 20 mg DAILY GT 02/22/18 09:00 03/10/18 08:59 02/27/18 09:29 Furosemide (Lasix) 40 mg DAILY IV 02/27/18 09:00 03/29/18 08:59 02/27/18 09:29 Insulin Aspart (NovoLOG) EVERY 6 HOURS SUBQ 02/22/18 06:30 03/07/18 06:29 02/27/18 12:24 Lorazepam (Ativan 2mg/ml 1ml) 1 mg Q4H PRN IV For Anxiety 02/22/18 08:00 02/28/18 00:00 Meropenem 1 gm/ Sodium Chloride 110 ml @ 220 mls/hr Q12HR@0600,1800 IVPB 02/22/18 18:00 03/04/18 17:59 02/27/18 06:10 Vancomycin HCl (Vanco rx to dose) 1 ea DAILY PRN MISC Per rx protocol 02/22/18 16:45 03/24/18 16:44 Vancomycin HCl 1 gm/Dextrose 275 ml @ 183.708 mls/hr Q24H IVPB 02/24/18 18:00 03/04/18 17:59 02/26/18 18:34 Dom Hoffman M.D. Feb 27, 2018 14:44
--- NOTE | 2018-02-27 15:29 | Cardiology Progress Note ---
Assessment/Plan Status: unchanged, deteriorating Assessment/Plan Assessment/Plan Assessment/Plan 1. Paroxysmal atrial fibrillation. In SR on digoxin 0.125 mg daily and Cardizem 30 tid. Off anticoagulation. Echo Nl EF. 2. Hypertension. On Cardizem 30 tid 3. Respiratory failure, on Vent now in ICU 4. Diabetes, on insulin. 5. Dementia. 6. Dysphagia, status post PEG 7. Sacral decubitus stage III. FU by Dr. Austin. 8. CVA with aphasia and contractures. 9. Trach for prolonged intubation Subjective Respiratory: Reports: shortness of breath Gastrointestinal/Abdominal: Reports: no symptoms Genitourinary: Reports: no symptoms Subjective no acute events, off pressors. Remains on vent, no changes. unable to wean off , increasing oxygen requirements Objective Last 24 Hour Vital Signs Date Time Temp Pulse Resp B/P (MAP) Pulse Ox O2 Delivery O2 Flow Rate FiO2 02/27/18 14:00 85 121/63 02/27/18 14:00 90 23 121/63 (82) 100 02/27/18 13:00 89 22 107/69 (82) 100 02/27/18 12:54 81 24 90 02/27/18 12:00 97 02/27/18 12:00 93 22 121/67 (85) 100 02/27/18 12:00 Mechanical Ventilator 02/27/18 12:00 60 02/27/18 11:36 100 02/27/18 11:28 96 31 60 02/27/18 11:00 87 22 112/58 (76) 100 02/27/18 10:00 93 22 119/66 (83) 100 02/27/18 09:29 84 02/27/18 09:15 84 21 60 02/27/18 09:00 93 22 101/57 (72) 100 02/27/18 08:00 100 02/27/18 08:00 Mechanical Ventilator 02/27/18 08:00 100 02/27/18 08:00 98.8 73 22 101/61 (74) 100 98.8 02/27/18 07:00 72 22 116/56 (76) 100 02/27/18 06:45 81 19 60 02/27/18 06:17 96 112/85 02/27/18 06:00 101 22 112/85 (94) 100 02/27/18 05:17 88 23 60 7/14/18 04:00 100 22 125/66 (85) 100 02/27/18 04:00 100 02/27/18 04:00 Mechanical Ventilator 02/27/18 04:00 100 02/27/18 03:00 88 29 60 02/27/18 03:00 92 22 125/66 (85) 100 02/27/18 02:00 76 23 118/74 (89) 100 02/27/18 01:30 80 20 60 02/27/18 01:00 80 24 111/54 (73) 100 02/27/18 00:00 76 21 96/55 (69) 100 02/27/18 00:00 80 02/27/18 00:00 Mechanical Ventilator 02/27/18 00:00 60 02/27/18 00:00 100 02/26/18 23:30 91 21 60 02/26/18 23:00 81 20 95/55 (68) 100 02/26/18 22:00 73 27 91/56 (68) 98 02/26/18 21:48 80 112/69 02/26/18 21:09 92 20 60 02/26/18 21:00 84 27 112/69 (83) 98 02/26/18 20:15 82 94/63 02/26/18 20:00 112 02/26/18 20:00 Mechanical Ventilator 02/26/18 20:00 100 02/26/18 20:00 85 26 60 02/26/18 20:00 132 26 94/63 (73) 100 02/26/18 19:45 97.9 142 22 99/62 (74) 98 97.9 02/26/18 19:00 102 26 112/51 (71) 100 02/26/18 18:00 96 26 137/67 (90) 90 02/26/18 17:06 89 27 40 02/26/18 17:00 85 22 123/63 (83) 100 02/26/18 16:00 Mechanical Ventilator 02/26/18 16:00 40 02/26/18 16:00 69 02/26/18 16:00 98.1 85 22 114/67 (83) 96 98.1 General Appearance: no apparent distress, on vent EENT: PERRL/EOMI Neck: non-tender Cardiovascular: normal peripheral pulses Respiratory/Chest: lungs clear Abdomen: normal bowel sounds Extremities: normal range of motion Neurologic: drafter detail II-XII grossly normal Intake and Output 02/26/18 02/27/18 19:00 07:00 Intake Total 880 ml 555 ml Output Total 780 ml 785 ml Balance 100 ml -230 ml Free Water 300 ml Tube Feeding 530 ml 495 ml Other 50 ml 60 ml Output Urine Total 780 ml 785 ml # Bowel Movements 3 Maxx Ureña M.D. Feb 27, 2018 15:29
[2018-02-27] MEDS ORDERED: NS 275ml ONE ×2 (15:38→15:56)
[2018-02-27] MEDS ORDERED: Tubing IV Secondary IV ONE (15:38)
[2018-02-27] MEDS ORDERED: Sterile Water Irrig 1000ml IRRIG ONE (15:44)
[2018-02-27] MEDS ORDERED: 1/2 NS 1000ml IV ONE (15:44)
[2018-02-27] MEDS: Vancomycin 1gm/D5W 275ml IVPB SCH ×2 (18:00)
[2018-02-28] VITALS (24 sets, daily range): BP systolic 103–157; BP diastolic 52–79
[2018-02-28] MEDS: dilTIAZem HCl 90mg tab ORAL SCH ×3 (05:46→21:51)
[2018-02-28] MEDS: Meropenem 1 GM in NS 110 ML IVPB SCH ×2 (05:46→18:11)
[2018-02-28] MEDS: NovoLOG Insulin Flexpen SUBQ SCH ×3 (05:47→18:13)
[2018-02-28 05:57] LABS: BASOPHILS % (AUTO) 0.6 % (0.0-2.0); EOSINOPHILS % (AUTO) 1.4 % (0.0-3.0); HEMATOCRIT 33.5 % (37.0-47.0); HEMOGLOBIN 11.3 G/DL (12.0-16.0); LYMPHOCYTES % (AUTO) 18.2 % (20.0-45.0); MEAN CORPUSCULAR VOLUME 86 FL (80-99); MONOCYTES % (AUTO) 6.4 % (1.0-10.0); NEUTROPHILS % (AUTO) 73.3 % (45.0-75.0); PLATELET COUNT 339 K/UL (150-450); RED BLOOD COUNT 3.91 M/UL (4.20-5.40); WHITE BLOOD COUNT 11.2 K/UL (4.8-10.8)
[2018-02-28 06:04] LABS: ANION GAP 1 mmol/L (5-15); BLOOD UREA NITROGEN 18 mg/dL (7-18); CARBON DIOXIDE 37 MMOL/L (21-32); CHLORIDE 104 MMOL/L (98-107); CREATININE 0.4 MG/DL (0.55-1.30); POTASSIUM 3.5 MMOL/L (3.5-5.1); SODIUM 142 MMOL/L (136-145)
--- NOTE | 2018-02-28 07:02 | Pulmonology Progress Note ---
Assessment/Plan Assessment/Plan IMPRESSION: 1. Bilateral pneumonia. Improved. 2. Respiratory failure now intubated; remains hypoxemic with 60% FiO2 3. Hypertension. 4. Diabetes mellitus. 5. Dehydration, hypernatremia 6. Tardive dyskinesia 7. Anemia DISCUSSION: Discussed with PMD Will likely need trach Continue vent Will attempt wean; CXR is much improved however has small bilateral effusions Subjective Interval Events: No change; remians intubated Constitutional: Reports: no symptoms HEENT: Repors: no symptoms Respiratory: Reports: no symptoms Cardiovascular: Reports: no symptoms Gastrointestinal/Abdominal: Reports: no symptoms Genitourinary: Reports: no symptoms Allergies: Coded Allergies: No Known Allergies (Verified , 03/10/07) Objective Last 24 Hour Vital Signs Date Time Temp Pulse Resp B/P (MAP) Pulse Ox O2 Delivery O2 Flow Rate FiO2 02/28/18 07:00 70 17 145/70 (95) 96 02/28/18 06:00 77 22 133/77 (95) 97 02/28/18 05:46 78 126/66 02/28/18 05:15 81 20 80 02/28/18 05:00 80 22 126/66 (86) 97 02/28/18 04:00 77 02/28/18 04:00 70 02/28/18 04:00 84 21 144/68 (93) 99 02/28/18 04:00 Mechanical Ventilator 02/28/18 03:10 77 24 80 02/28/18 03:00 81 24 131/67 (88) 98 02/28/18 02:00 76 23 116/63 (80) 97 02/28/18 01:00 78 25 123/58 (79) 97 02/28/18 00:46 81 24 80 02/28/18 00:00 90 02/28/18 00:00 70 02/28/18 00:00 Mechanical Ventilator 02/28/18 00:00 98.1 69 19 120/52 (74) 96 98.1 02/27/18 23:00 84 27 114/81 (92) 98 02/27/18 22:46 91 28 80 02/27/18 22:00 70 20 124/52 (76) 98 02/27/18 21:30 84 126/63 02/27/18 21:25 90 21 70 02/27/18 21:00 98.4 83 26 126/63 (84) 98 98.4 02/27/18 20:05 83 20 108/75 (86) 100 02/27/18 20:00 Mechanical Ventilator 02/27/18 20:00 70 02/27/18 20:00 81 02/27/18 18:55 83 22 70 02/27/18 18:00 85 20 112/71 (85) 100 02/27/18 17:16 69 23 80 02/27/18 17:00 86 23 96/49 (65) 96 02/27/18 16:00 82 24 100/58 (72) 94 02/27/18 16:00 60 02/27/18 16:00 79 02/27/18 16:00 Mechanical Ventilator 02/27/18 15:19 80 27 80 02/27/18 15:00 97.6 82 22 97/61 (73) 94 97.6 02/27/18 14:00 85 121/63 02/27/18 14:00 90 23 121/63 (82) 100 02/27/18 13:00 89 22 107/69 (82) 100 02/27/18 12:54 81 24 90 02/27/18 12:00 97 02/27/18 12:00 93 22 121/67 (85) 100 02/27/18 12:00 Mechanical Ventilator 02/27/18 12:00 60 02/27/18 11:36 100 02/27/18 11:28 96 31 60 02/27/18 11:00 87 22 112/58 (76) 100 02/27/18 10:00 93 22 119/66 (83) 100 02/27/18 09:29 84 02/27/18 09:15 84 21 60 02/27/18 09:00 93 22 101/57 (72) 100 02/27/18 08:00 100 02/27/18 08:00 Mechanical Ventilator 02/27/18 08:00 100 02/27/18 08:00 98.8 73 22 101/61 (74) 100 98.8 Intake and Output 02/27/18 02/28/18 19:00 07:00 Intake Total 590 ml 795 ml Output Total 1080 ml 440 ml Balance -490 ml 355 ml Free Water 200 ml Tube Feeding 540 ml 495 ml Other 50 ml 100 ml Output Urine Total 1080 ml 440 ml General Appearance: no acute distress HEENT: normocephalic Respiratory/Chest: chest wall non-tender, lungs clear Cardiovascular: normal peripheral pulses, normal rate Laboratory Tests 02/27/18 17:40: Vancomycin Level Trough 14.5H 02/28/18 03:35: White Blood Count 11.2H, Red Blood Count 3.91L, Hemoglobin 11.3L, Hematocrit 33.5L, Mean Corpuscular Volume 86, Mean Corpuscular Hemoglobin 28.8, Mean Corpuscular Hemoglobin Concent 33.6, Red Cell Distribution Width 15.0H, Platelet Count 339, Mean Platelet Volume 7.1, Neutrophils (%) (Auto) 73.3, Lymphocytes (%) (Auto) 18.2L, Monocytes (%) (Auto) 6.4, Eosinophils (%) (Auto) 1.4, Basophils (%) (Auto) 0.6, Sodium Level 142, Potassium Level 3.5, Chloride Level 104, Carbon Dioxide Level 37H, Anion Gap 1L, Blood Urea Nitrogen 18, Creatinine 0.4L, Estimat Glomerular Filtration Rate , Glucose Level 109H, Calcium Level 8.0L Current Medications Medications (Trade) Dose Ordered Sig/Rosetta Route PRN Reason Start Time Stop Time Status Last Admin Dose Admin Acetaminophen (Tylenol) 650 mg Q4H PRN GT Mild Pain/Temp > 100.5 02/22/18 08:00 03/10/18 15:59 02/24/18 16:48 Ascorbic Acid (Vitamin C) 500 mg DAILY GT 02/22/18 09:00 03/07/18 08:59 02/27/18 09:29 Clonidine HCl (Catapres Tab) 0.1 mg Q8H PRN GT SBP >160 02/22/18 09:00 03/09/18 16:59 Dextrose (Dextrose 50%) 25 ml STAT PRN IV Hypoglycemia 02/22/18 16:00 03/11/18 15:59 Dextrose (Dextrose 50%) 50 ml STAT PRN IV Hypoglycemia 02/22/18 16:00 03/11/18 15:59 Digoxin (Lanoxin) 0.125 mg DAILY GT 02/22/18 09:00 03/07/18 08:59 02/27/18 09:29 Diltiazem HCl (Cardizem) 90 mg EVERY 8 HOURS ORAL 02/26/18 22:00 03/12/18 21:59 02/28/18 05:46 Enoxaparin Sodium (Lovenox) 30 mg Q24H SUBQ 02/22/18 09:00 03/07/18 08:59 02/26/18 09:48 Famotidine (Pepcid) 20 mg DAILY GT 02/22/18 09:00 03/10/18 08:59 02/27/18 09:29 Furosemide (Lasix) 40 mg DAILY IV 02/27/18 09:00 03/29/18 08:59 02/27/18 09:29 Insulin Aspart (NovoLOG) EVERY 6 HOURS SUBQ 02/22/18 06:30 03/07/18 06:29 02/28/18 05:47 Meropenem 1 gm/ Sodium Chloride 110 ml @ 220 mls/hr Q12HR@0600,1800 IVPB 02/22/18 18:00 03/04/18 17:59 02/28/18 05:46 Vancomycin HCl (Vanco rx to dose) 1 ea DAILY PRN MISC Per rx protocol 02/22/18 16:45 03/24/18 16:44 Vancomycin HCl 1 gm/Dextrose 275 ml @ 183.708 mls/hr Q24H IVPB 02/24/18 18:00 03/04/18 17:59 02/27/18 18:00 Jan Sawant MD Feb 28, 2018 07:02
--- NOTE | 2018-02-28 07:47 | Nephrology Progress Note ---
Assessment/Plan Assessment/Plan 1. Sepsis - Abx per ID mgmt 2. Sacral Decub- Gen Surg mgmt 3. Hyernatremia- resolved. resolved 4. Resp FL- Patient intubated - Pulm assistance with vent mgmt. Awaiting conservatee for trach and tx to [facility] 5. AFib- digoxin + cardizem 6. DVT prophylaxis- lovenox 7. Hypokalemia- corrected Subjective Date patient seen: Feb 28, 2018 Time patient seen: 07:45 ROS Limited/Unobtainable: Yes Allergies: Coded Allergies: No Known Allergies (Verified , 03/10/07) Subjective Patient intubated. Eval for trach Objective Last 24 Hour Vital Signs Date Time Temp Pulse Resp B/P (MAP) Pulse Ox O2 Delivery O2 Flow Rate FiO2 02/28/18 07:00 70 17 145/70 (95) 96 02/28/18 06:00 77 22 133/77 (95) 97 02/28/18 05:46 78 126/66 02/28/18 05:15 81 20 80 02/28/18 05:00 80 22 126/66 (86) 97 02/28/18 04:00 77 02/28/18 04:00 70 02/28/18 04:00 84 21 144/68 (93) 99 02/28/18 04:00 Mechanical Ventilator 02/28/18 03:10 77 24 80 02/28/18 03:00 81 24 131/67 (88) 98 02/28/18 02:00 76 23 116/63 (80) 97 02/28/18 01:00 78 25 123/58 (79) 97 02/28/18 00:46 81 24 80 02/28/18 00:00 90 02/28/18 00:00 70 02/28/18 00:00 Mechanical Ventilator 02/28/18 00:00 98.1 69 19 120/52 (74) 96 98.1 02/27/18 23:00 84 27 114/81 (92) 98 02/27/18 22:46 91 28 80 02/27/18 22:00 70 20 124/52 (76) 98 02/27/18 21:30 84 126/63 02/27/18 21:25 90 21 70 02/27/18 21:00 98.4 83 26 126/63 (84) 98 98.4 02/27/18 20:05 83 20 108/75 (86) 100 02/27/18 20:00 Mechanical Ventilator 02/27/18 20:00 70 02/27/18 20:00 81 02/27/18 18:55 83 22 70 02/27/18 18:00 85 20 112/71 (85) 100 02/27/18 17:16 69 23 80 02/27/18 17:00 86 23 96/49 (65) 96 02/27/18 16:00 82 24 100/58 (72) 94 02/27/18 16:00 60 02/27/18 16:00 79 02/27/18 16:00 Mechanical Ventilator 02/27/18 15:19 80 27 80 02/27/18 15:00 97.6 82 22 97/61 (73) 94 97.6 02/27/18 14:00 85 121/63 02/27/18 14:00 90 23 121/63 (82) 100 02/27/18 13:00 89 22 107/69 (82) 100 02/27/18 12:54 81 24 90 02/27/18 12:00 97 02/27/18 12:00 93 22 121/67 (85) 100 02/27/18 12:00 Mechanical Ventilator 02/27/18 12:00 60 02/27/18 11:36 100 02/27/18 11:28 96 31 60 02/27/18 11:00 87 22 112/58 (76) 100 02/27/18 10:00 93 22 119/66 (83) 100 02/27/18 09:29 84 02/27/18 09:15 84 21 60 02/27/18 09:00 93 22 101/57 (72) 100 02/27/18 08:00 100 02/27/18 08:00 Mechanical Ventilator 02/27/18 08:00 100 02/27/18 08:00 98.8 73 22 101/61 (74) 100 98.8 Intake and Output 02/27/18 02/28/18 19:00 07:00 Intake Total 590 ml 840 ml Output Total 1080 ml 480 ml Balance -490 ml 360 ml Free Water 200 ml Tube Feeding 540 ml 540 ml Other 50 ml 100 ml Output Urine Total 1080 ml 480 ml Laboratory Tests 02/27/18 17:40: Vancomycin Level Trough 14.5H 02/28/18 03:35: White Blood Count 11.2H, Red Blood Count 3.91L, Hemoglobin 11.3L, Hematocrit 33.5L, Mean Corpuscular Volume 86, Mean Corpuscular Hemoglobin 28.8, Mean Corpuscular Hemoglobin Concent 33.6, Red Cell Distribution Width 15.0H, Platelet Count 339, Mean Platelet Volume 7.1, Neutrophils (%) (Auto) 73.3, Lymphocytes (%) (Auto) 18.2L, Monocytes (%) (Auto) 6.4, Eosinophils (%) (Auto) 1.4, Basophils (%) (Auto) 0.6, Sodium Level 142, Potassium Level 3.5, Chloride Level 104, Carbon Dioxide Level 37H, Anion Gap 1L, Blood Urea Nitrogen 18, Creatinine 0.4L, Estimat Glomerular Filtration Rate , Glucose Level 109H, Calcium Level 8.0L Height (Feet): 4 Height (Inches): 0.00 Weight (Pounds): 86 General Appearance: no apparent distress, alert EENT: normal ENT inspection Neck: non-tender, normal alignment, supple Cardiovascular: normal rate, regular rhythm Respiratory/Chest: rhonchi - bilaterally Abdomen: normal bowel sounds, non tender, soft Edema: no edema noted Arm (L), no edema noted Arm (R), no edema noted Leg (L), no edema noted Leg (R), no edema noted Pedal (L), no edema noted Pedal (R), no edema noted Generalized Jorge Graf M.D. Feb 28, 2018 07:47
[2018-02-28] MEDS: Digoxin 0.125mg tab GT SCH (08:20)
[2018-02-28] MEDS: Ascorbic Acid 500mg tab GT SCH (08:21)
[2018-02-28] MEDS: Enoxaparin 30mg Inj SUBQ SCH (08:28)
--- NOTE | 2018-02-28 16:09 | Cardiology Progress Note ---
Assessment/Plan Status: stable Assessment/Plan Assessment/Plan Assessment/Plan 1. Paroxysmal atrial fibrillation. In SR on digoxin 0.125 mg daily and Cardizem 30 tid. Off anticoagulation. Echo Nl EF. 2. Hypertension. On Cardizem 30 tid 3. Respiratory failure, on Vent now in ICU 4. Diabetes, on insulin. 5. Dementia. 6. Dysphagia, status post PEG 7. Sacral decubitus stage III. FU by Dr. Austin. 8. CVA with aphasia and contractures. 9. Trach for prolonged intubation Subjective Cardiovascular: Reports: no symptoms Respiratory: Reports: no symptoms Gastrointestinal/Abdominal: Reports: no symptoms Genitourinary: Reports: no symptoms Subjective no acute events, off pressors. Remains on vent, no changes. unable to wean off , increasing oxygen requirements Patient was received obtunded, responsive to tactile stimuli.On ETT, AC 15-450- 80-5 on Glucerna 1.2 at 45 cc Objective Last 24 Hour Vital Signs Date Time Temp Pulse Resp B/P (MAP) Pulse Ox O2 Delivery O2 Flow Rate FiO2 02/28/18 15:22 93 25 50 02/28/18 14:24 104 134/78 02/28/18 14:00 86 17 108/57 (74) 100 02/28/18 13:00 88 17 115/65 (82) 98 02/28/18 12:41 80 24 50 02/28/18 12:00 50 02/28/18 12:00 76 02/28/18 12:00 Mechanical Ventilator 02/28/18 12:00 97.8 66 19 103/62 (76) 100 97.8 02/28/18 11:01 91 28 50 02/28/18 11:00 87 17 114/66 (82) 100 02/28/18 10:00 69 17 113/59 (77) 100 02/28/18 09:00 67 23 114/61 (78) 100 02/28/18 08:31 89 24 70 02/28/18 08:20 80 02/28/18 08:00 80 02/28/18 08:00 98.6 85 19 126/65 (85) 94 98.6 02/28/18 08:00 74 02/28/18 08:00 Mechanical Ventilator 02/28/18 07:00 70 17 145/70 (95) 96 02/28/18 06:00 77 22 133/77 (95) 97 02/28/18 05:46 78 126/66 02/28/18 05:15 81 20 80 02/28/18 05:00 80 22 126/66 (86) 97 02/28/18 04:00 77 02/28/18 04:00 70 02/28/18 04:00 84 21 144/68 (93) 99 02/28/18 04:00 Mechanical Ventilator 02/28/18 03:10 77 24 80 02/28/18 03:00 81 24 131/67 (88) 98 02/28/18 02:00 76 23 116/63 (80) 97 02/28/18 01:00 78 25 123/58 (79) 97 02/28/18 00:46 81 24 80 02/28/18 00:00 90 02/28/18 00:00 70 02/28/18 00:00 Mechanical Ventilator 02/28/18 00:00 98.1 69 19 120/52 (74) 96 98.1 02/27/18 23:00 84 27 114/81 (92) 98 02/27/18 22:46 91 28 80 02/27/18 22:00 70 20 124/52 (76) 98 02/27/18 21:30 84 126/63 02/27/18 21:25 90 21 70 02/27/18 21:00 98.4 83 26 126/63 (84) 98 98.4 02/27/18 20:05 83 20 108/75 (86) 100 02/27/18 20:00 Mechanical Ventilator 02/27/18 20:00 70 02/27/18 20:00 81 02/27/18 18:55 83 22 70 02/27/18 18:00 85 20 112/71 (85) 100 02/27/18 17:16 69 23 80 02/27/18 17:00 86 23 96/49 (65) 96 General Appearance: no apparent distress, on vent EENT: PERRL/EOMI Neck: non-tender Rhythm: NSR Cardiovascular: normal peripheral pulses Respiratory/Chest: chest wall non-tender Abdomen: normal bowel sounds Extremities: normal range of motion 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 Intake and Output 02/27/18 02/28/18 19:00 07:00 Intake Total 590 ml 840 ml Output Total 1080 ml 480 ml Balance -490 ml 360 ml Free Water 200 ml Tube Feeding 540 ml 540 ml Other 50 ml 100 ml Output Urine Total 1080 ml 480 ml Laboratory Tests Test 02/27/18 17:40 02/28/18 03:35 02/28/18 09:15 Vancomycin Level Trough 14.5 ug/mL (5.0-12.0) H White Blood Count 11.2 K/UL (4.8-10.8) H Red Blood Count 3.91 M/UL (4.20-5.40) L Hemoglobin 11.3 G/DL (12.0-16.0) L Hematocrit 33.5 % (37.0-47.0) L Mean Corpuscular Volume 86 FL (80-99) Mean Corpuscular Hemoglobin 28.8 PG (27.0-31.0) Mean Corpuscular Hemoglobin Concent 33.6 G/DL (32.0-36.0) Red Cell Distribution Width 15.0 % (11.6-14.8) H Platelet Count 339 K/UL (150-450) Mean Platelet Volume 7.1 FL (6.5-10.1) Neutrophils (%) (Auto) 73.3 % (45.0-75.0) Lymphocytes (%) (Auto) 18.2 % (20.0-45.0) L Monocytes (%) (Auto) 6.4 % (1.0-10.0) Eosinophils (%) (Auto) 1.4 % (0.0-3.0) Basophils (%) (Auto) 0.6 % (0.0-2.0) Sodium Level 142 MMOL/L (136-145) Potassium Level 3.5 MMOL/L (3.5-5.1) Chloride Level 104 MMOL/L (98-107) Carbon Dioxide Level 37 MMOL/L (21-32) H Anion Gap 1 mmol/L (5-15) L Blood Urea Nitrogen 18 mg/dL (7-18) Creatinine 0.4 MG/DL (0.55-1.30) L Estimat Glomerular Filtration Rate mL/min (>60) Glucose Level 109 MG/DL (74-106) H Calcium Level 8.0 MG/DL (8.5-10.1) L Arterial Blood pH 7.501 (7.350-7.450) Arterial Blood Partial Pressure CO2 52.0 mmHg (35.0-45.0) H Arterial Blood Partial Pressure O2 144.9 mmHg (75.0-100.0) H Arterial Blood HCO3 39.7 mmol/L (22.0-26.0) H Arterial Blood Oxygen Saturation 98.9 % (92.0-98.0) H Arterial Blood Base Excess 14.5 Kang Test Positive Maxx Ureña M.D. Feb 28, 2018 16:09
[2018-02-28] MEDS: Vancomycin 1gm/D5W 275ml IVPB SCH ×2 (18:11)
--- NOTE | 2018-02-28 20:41 | Infectious Diseases Prog Note ---
Assessment/Plan Problems: (1) HCAP (healthcare-associated pneumonia) Assessment & Plan: with left lung total white out , suspect mucous plug resolved , S/P intubation due to worsening respiratory failure . sputum culture grew normal anjel so far , continue vancomycin and meropenem empiric coverage for now , monitor CXR . pulmonary is following. 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 continue local wound care and dressing changes as per hospital protocol . was evaluated by general surgery (3) Sepsis Assessment & Plan: ruled out with repeated blood culture is negative x4 . (4) Acute respiratory failure Assessment & Plan: now chronic and ventilator dependant , pulmonary is following, monitor CXR and ABG . she may need tracheostomy Subjective ROS Limited/Unobtainable: Yes Allergies: Coded Allergies: No Known Allergies (Verified , 03/10/07) Subjective she is intubated on mechanical ventilation , in ICU, awake, no fever, or chills , had mild secretions from ET tube . Objective Vital Signs Last 24 Hour Vital Signs Date Time Temp Pulse Resp B/P (MAP) Pulse Ox O2 Delivery O2 Flow Rate FiO2 02/28/18 20:00 50 02/28/18 20:00 Mechanical Ventilator 02/28/18 20:00 100 02/28/18 20:00 98.7 97 22 134/72 (92) 98 98.7 02/28/18 19:30 95 21 50 02/28/18 19:00 97 24 152/79 (103) 99 02/28/18 18:00 92 23 135/77 (96) 96 02/28/18 18:00 97 21 135/77 (96) 98 02/28/18 17:00 88 22 157/73 (101) 100 02/28/18 16:54 80 16 50 02/28/18 16:00 88 02/28/18 16:00 98.6 81 18 115/64 (81) 100 98.6 02/28/18 16:00 50 02/28/18 16:00 Mechanical Ventilator 02/28/18 15:22 93 25 50 02/28/18 15:00 90 17 124/66 (85) 100 02/28/18 14:24 104 134/78 02/28/18 14:00 86 17 108/57 (74) 100 02/28/18 13:00 88 17 115/65 (82) 98 02/28/18 12:41 80 24 50 02/28/18 12:00 50 02/28/18 12:00 76 02/28/18 12:00 Mechanical Ventilator 02/28/18 12:00 97.8 66 19 103/62 (76) 100 97.8 02/28/18 11:01 91 28 50 02/28/18 11:00 87 17 114/66 (82) 100 02/28/18 10:00 69 17 113/59 (77) 100 02/28/18 09:00 67 23 114/61 (78) 100 02/28/18 08:31 89 24 70 02/28/18 08:20 80 02/28/18 08:00 80 02/28/18 08:00 98.6 85 19 126/65 (85) 94 98.6 02/28/18 08:00 74 02/28/18 08:00 Mechanical Ventilator 02/28/18 07:00 70 17 145/70 (95) 96 02/28/18 06:00 77 22 133/77 (95) 97 02/28/18 05:46 78 126/66 02/28/18 05:15 81 20 80 02/28/18 05:00 80 22 126/66 (86) 97 02/28/18 04:00 77 02/28/18 04:00 70 02/28/18 04:00 84 21 144/68 (93) 99 02/28/18 04:00 Mechanical Ventilator 02/28/18 03:10 77 24 80 02/28/18 03:00 81 24 131/67 (88) 98 02/28/18 02:00 76 23 116/63 (80) 97 02/28/18 01:00 78 25 123/58 (79) 97 02/28/18 00:46 81 24 80 02/28/18 00:00 90 02/28/18 00:00 70 02/28/18 00:00 Mechanical Ventilator 02/28/18 00:00 98.1 69 19 120/52 (74) 96 98.1 02/27/18 23:00 84 27 114/81 (92) 98 02/27/18 22:46 91 28 80 02/27/18 22:00 70 20 124/52 (76) 98 02/27/18 21:30 84 126/63 02/27/18 21:25 90 21 70 02/27/18 21:00 98.4 83 26 126/63 (84) 98 98.4 Height (Feet): 4 Height (Inches): 0.00 Weight (Pounds): 86 General Appearance: WD/WN, no acute distress HEENT: normocephalic, atraumatic, anicteric, mucous membranes moist, PERRL Respiratory/Chest: chest wall non-tender, lungs clear, normal breath sounds, no respiratory distress, no accessory muscle use Breasts: no masses Cardiovascular: normal peripheral pulses, normal rate, regular rhythm, no gallop/murmur, no JVD Abdomen: normal bowel sounds, soft, non tender, no organomegaly, non distended , no mass, no scars Genitourinary: normal external genitalia Extremities: no cyanosis, no clubbing Skin: no rash, no lesions, ulcers Neurologic/Psychiatric: alert, unresponsiveness Lymphatic: no neck adenopathy, no groin adenopathy Musculoskeletal: normal muscle bulk, no effusion Laboratory Tests Test 02/28/18 03:35 02/28/18 09:15 White Blood Count 11.2 K/UL (4.8-10.8) H Red Blood Count 3.91 M/UL (4.20-5.40) L Hemoglobin 11.3 G/DL (12.0-16.0) L Hematocrit 33.5 % (37.0-47.0) L Mean Corpuscular Volume 86 FL (80-99) Mean Corpuscular Hemoglobin 28.8 PG (27.0-31.0) Mean Corpuscular Hemoglobin Concent 33.6 G/DL (32.0-36.0) Red Cell Distribution Width 15.0 % (11.6-14.8) H Platelet Count 339 K/UL (150-450) Mean Platelet Volume 7.1 FL (6.5-10.1) Neutrophils (%) (Auto) 73.3 % (45.0-75.0) Lymphocytes (%) (Auto) 18.2 % (20.0-45.0) L Monocytes (%) (Auto) 6.4 % (1.0-10.0) Eosinophils (%) (Auto) 1.4 % (0.0-3.0) Basophils (%) (Auto) 0.6 % (0.0-2.0) Sodium Level 142 MMOL/L (136-145) Potassium Level 3.5 MMOL/L (3.5-5.1) Chloride Level 104 MMOL/L (98-107) Carbon Dioxide Level 37 MMOL/L (21-32) H Anion Gap 1 mmol/L (5-15) L Blood Urea Nitrogen 18 mg/dL (7-18) Creatinine 0.4 MG/DL (0.55-1.30) L Estimat Glomerular Filtration Rate mL/min (>60) Glucose Level 109 MG/DL (74-106) H Calcium Level 8.0 MG/DL (8.5-10.1) L Arterial Blood pH 7.501 (7.350-7.450) Arterial Blood Partial Pressure CO2 52.0 mmHg (35.0-45.0) H Arterial Blood Partial Pressure O2 144.9 mmHg (75.0-100.0) H Arterial Blood HCO3 39.7 mmol/L (22.0-26.0) H Arterial Blood Oxygen Saturation 98.9 % (92.0-98.0) H Arterial Blood Base Excess 14.5 Kang Test Positive Current Medications Medications (Trade) Dose Ordered Sig/Rosetta Route PRN Reason Start Time Stop Time Status Last Admin Dose Admin Acetaminophen (Tylenol) 650 mg Q4H PRN GT Mild Pain/Temp > 100.5 02/22/18 08:00 03/10/18 15:59 02/24/18 16:48 Ascorbic Acid (Vitamin C) 500 mg DAILY GT 02/22/18 09:00 03/07/18 08:59 02/28/18 08:21 Clonidine HCl (Catapres Tab) 0.1 mg Q8H PRN GT SBP >160 02/22/18 09:00 03/09/18 16:59 Dextrose (Dextrose 50%) 25 ml STAT PRN IV Hypoglycemia 02/22/18 16:00 03/11/18 15:59 Dextrose (Dextrose 50%) 50 ml STAT PRN IV Hypoglycemia 02/22/18 16:00 03/11/18 15:59 Digoxin (Lanoxin) 0.125 mg DAILY GT 02/22/18 09:00 03/07/18 08:59 02/28/18 08:20 Diltiazem HCl (Cardizem) 90 mg EVERY 8 HOURS ORAL 02/26/18 22:00 03/12/18 21:59 02/28/18 14:24 Enoxaparin Sodium (Lovenox) 30 mg Q24H SUBQ 02/22/18 09:00 03/07/18 08:59 02/28/18 08:28 Famotidine (Pepcid) 20 mg DAILY GT 02/22/18 09:00 03/10/18 08:59 02/28/18 08:21 Furosemide (Lasix) 40 mg DAILY IV 02/27/18 09:00 03/29/18 08:59 02/28/18 08:25 Insulin Aspart (NovoLOG) EVERY 6 HOURS SUBQ 02/22/18 06:30 03/07/18 06:29 02/28/18 18:13 Meropenem 1 gm/ Sodium Chloride 110 ml @ 220 mls/hr Q12HR@0600,1800 IVPB 02/22/18 18:00 03/04/18 17:59 02/28/18 18:11 Vancomycin HCl (Vanco rx to dose) 1 ea DAILY PRN MISC Per rx protocol 02/22/18 16:45 03/24/18 16:44 Vancomycin HCl 1 gm/Dextrose 275 ml @ 183.708 mls/hr Q24H IVPB 02/24/18 18:00 03/04/18 17:59 02/28/18 18:11 Dom Hoffman M.D. Feb 28, 2018 20:41
[2018-03-01] VITALS (24 sets, daily range): BP systolic 102–162; BP diastolic 54–95
[2018-03-01] MEDS: Meropenem 1 GM in NS 110 ML IVPB SCH ×2 (05:54→18:58)
[2018-03-01] MEDS: dilTIAZem HCl 90mg tab ORAL SCH ×3 (05:55→21:58)
[2018-03-01] MEDS: NovoLOG Insulin Flexpen SUBQ SCH ×5 (06:12→23:32)
--- NOTE | 2018-03-01 07:57 | Nephrology Progress Note ---
Assessment/Plan Assessment/Plan 1. Sepsis - Abx per ID mgmt. No change 2. Sacral Decub- Gen Surg mgmt. Stable 3. Hyernatremia- resolved. Check labs in am 4. Resp FL- Patient intubated - Pulm assistance with vent mgmt. Awaiting conservatee for trach and tx to [facility] 5. AFib- digoxin + cardizem 6. DVT prophylaxis- lovenox Will check labs qod Subjective Date patient seen: Mar 01, 2018 Time patient seen: 07:55 ROS Limited/Unobtainable: Yes Allergies: Coded Allergies: No Known Allergies (Verified , 03/10/07) Subjective Patient intubated. Clinically stable mech ventillated Objective Last 24 Hour Vital Signs Date Time Temp Pulse Resp B/P (MAP) Pulse Ox O2 Delivery O2 Flow Rate FiO2 03/01/18 07:15 88 22 97 03/01/18 07:00 82 19 104/60 (75) 99 03/01/18 06:00 107 28 152/86 (108) 84 03/01/18 05:55 108 162/89 03/01/18 05:12 105 27 50 03/01/18 05:00 104 32 162/89 (113) 82 03/01/18 04:00 Mechanical Ventilator 03/01/18 04:00 101 03/01/18 04:00 97.8 103 30 148/80 (102) 78 97.8 03/01/18 04:00 50 03/01/18 03:00 101 28 130/74 (92) 82 03/01/18 02:48 104 31 50 03/01/18 02:00 104 31 143/82 (102) 100 03/01/18 01:30 102 30 50 03/01/18 01:00 102 29 134/95 (108) 100 03/01/18 00:08 50 03/01/18 00:07 90 03/01/18 00:06 Mechanical Ventilator 03/01/18 00:00 98.6 75 25 160/82 (108) 100 98.6 02/28/18 23:30 103 30 50 02/28/18 23:00 82 16 108/65 (79) 97 02/28/18 22:00 87 19 104/68 (80) 97 02/28/18 21:51 90 122/68 02/28/18 21:00 86 15 122/68 (86) 97 7/15/18 20:47 92 20 50 02/28/18 20:00 50 02/28/18 20:00 Mechanical Ventilator 02/28/18 20:00 100 02/28/18 20:00 98.7 97 22 134/72 (92) 98 98.7 02/28/18 19:30 95 21 50 02/28/18 19:00 97 24 152/79 (103) 99 02/28/18 18:00 92 23 135/77 (96) 96 02/28/18 18:00 97 21 135/77 (96) 98 02/28/18 17:00 88 22 157/73 (101) 100 02/28/18 16:54 80 16 50 02/28/18 16:00 88 02/28/18 16:00 98.6 81 18 115/64 (81) 100 98.6 02/28/18 16:00 50 02/28/18 16:00 Mechanical Ventilator 02/28/18 15:22 93 25 50 02/28/18 15:00 90 17 124/66 (85) 100 02/28/18 14:24 104 134/78 02/28/18 14:00 86 17 108/57 (74) 100 02/28/18 13:00 88 17 115/65 (82) 98 02/28/18 12:41 80 24 50 02/28/18 12:00 50 02/28/18 12:00 76 02/28/18 12:00 Mechanical Ventilator 02/28/18 12:00 97.8 66 19 103/62 (76) 100 97.8 02/28/18 11:01 91 28 50 02/28/18 11:00 87 17 114/66 (82) 100 02/28/18 10:00 69 17 113/59 (77) 100 02/28/18 09:00 67 23 114/61 (78) 100 02/28/18 08:31 89 24 70 02/28/18 08:20 80 02/28/18 08:00 80 02/28/18 08:00 98.6 85 19 126/65 (85) 94 98.6 02/28/18 08:00 74 02/28/18 08:00 Mechanical Ventilator Intake and Output 02/28/18 03/01/18 19:00 07:00 Intake Total 723.7 ml 726.3 ml Output Total 975 ml 650 ml Balance -251.3 ml 76.3 ml IV Total 183.7 ml 201.3 ml Tube Feeding 540 ml 495 ml Other 30 ml Output Urine Total 975 ml 650 ml # Bowel Movements 2 Laboratory Tests 02/28/18 09:15: Arterial Blood pH 7.501H, Arterial Blood Partial Pressure CO2 52.0H, Arterial Blood Partial Pressure O2 144.9H, Arterial Blood HCO3 39.7H, Arterial Blood Oxygen Saturation 98.9H, Arterial Blood Base Excess 14.5, Kang Test Positive Height (Feet): 4 Height (Inches): 0.00 Weight (Pounds): 106 General Appearance: no apparent distress EENT: PERRL/EOMI Neck: non-tender, normal alignment, supple Cardiovascular: normal peripheral pulses, normal rate Respiratory/Chest: rhonchi - bilaterally Abdomen: non tender, soft Edema: no edema noted Arm (L), no edema noted Arm (R), no edema noted Leg (L), no edema noted Leg (R), no edema noted Pedal (L), no edema noted Pedal (R), no edema noted Generalized Jorge Graf M.D. Mar 01, 2018 07:57
--- NOTE | 2018-03-01 08:54 | Pulmonology Progress Note ---
Assessment/Plan Assessment/Plan IMPRESSION: 1. Bilateral pneumonia. Improved. 2. Respiratory failure; intubated; remains hypoxemic with 100% FiO2 now 3. Hypertension. 4. Diabetes mellitus. 5. Dehydration, hypernatremia 6. Tardive dyskinesia 7. Anemia DISCUSSION: Discussed with PMD Will need trach Continue vent Subjective Interval Events: On 100% FiO2; unable to wean Constitutional: Reports: no symptoms HEENT: Repors: no symptoms Respiratory: Reports: no symptoms Cardiovascular: Reports: no symptoms Gastrointestinal/Abdominal: Reports: no symptoms Genitourinary: Reports: no symptoms Allergies: Coded Allergies: No Known Allergies (Verified , 03/10/07) Objective Last 24 Hour Vital Signs Date Time Temp Pulse Resp B/P (MAP) Pulse Ox O2 Delivery O2 Flow Rate FiO2 03/01/18 07:16 87 24 50 03/01/18 07:15 88 22 97 03/01/18 07:00 82 19 104/60 (75) 99 03/01/18 06:00 107 28 152/86 (108) 84 03/01/18 05:55 108 162/89 03/01/18 05:12 105 27 50 03/01/18 05:00 104 32 162/89 (113) 82 03/01/18 04:00 Mechanical Ventilator 03/01/18 04:00 101 03/01/18 04:00 97.8 103 30 148/80 (102) 78 97.8 03/01/18 04:00 50 03/01/18 03:00 101 28 130/74 (92) 82 03/01/18 02:48 104 31 50 03/01/18 02:00 104 31 143/82 (102) 100 03/01/18 01:30 102 30 50 03/01/18 01:00 102 29 134/95 (108) 100 03/01/18 00:08 50 03/01/18 00:07 90 03/01/18 00:06 Mechanical Ventilator 03/01/18 00:00 98.6 75 25 160/82 (108) 100 98.6 02/28/18 23:30 103 30 50 02/28/18 23:00 82 16 108/65 (79) 97 02/28/18 22:00 87 19 104/68 (80) 97 02/28/18 21:51 90 122/68 02/28/18 21:00 86 15 122/68 (86) 97 02/28/18 20:47 92 20 50 02/28/18 20:00 50 02/28/18 20:00 Mechanical Ventilator 02/28/18 20:00 100 02/28/18 20:00 98.7 97 22 134/72 (92) 98 98.7 02/28/18 19:30 95 21 50 02/28/18 19:00 97 24 152/79 (103) 99 02/28/18 18:00 92 23 135/77 (96) 96 02/28/18 18:00 97 21 135/77 (96) 98 02/28/18 17:00 88 22 157/73 (101) 100 02/28/18 16:54 80 16 50 02/28/18 16:00 88 02/28/18 16:00 98.6 81 18 115/64 (81) 100 98.6 02/28/18 16:00 50 02/28/18 16:00 Mechanical Ventilator 02/28/18 15:22 93 25 50 02/28/18 15:00 90 17 124/66 (85) 100 02/28/18 14:24 104 134/78 02/28/18 14:00 86 17 108/57 (74) 100 02/28/18 13:00 88 17 115/65 (82) 98 02/28/18 12:41 80 24 50 02/28/18 12:00 50 02/28/18 12:00 76 02/28/18 12:00 Mechanical Ventilator 02/28/18 12:00 97.8 66 19 103/62 (76) 100 97.8 02/28/18 11:01 91 28 50 02/28/18 11:00 87 17 114/66 (82) 100 02/28/18 10:00 69 17 113/59 (77) 100 02/28/18 09:00 67 23 114/61 (78) 100 Intake and Output 02/28/18 03/01/18 19:00 07:00 Intake Total 723.7 ml 726.3 ml Output Total 975 ml 650 ml Balance -251.3 ml 76.3 ml IV Total 183.7 ml 201.3 ml Tube Feeding 540 ml 495 ml Other 30 ml Output Urine Total 975 ml 650 ml # Bowel Movements 2 General Appearance: no acute distress HEENT: normocephalic Respiratory/Chest: chest wall non-tender, lungs clear Cardiovascular: normal peripheral pulses, normal rate Abdomen: normal bowel sounds Laboratory Tests 02/28/18 09:15: Arterial Blood pH 7.501H, Arterial Blood Partial Pressure CO2 52.0H, Arterial Blood Partial Pressure O2 144.9H, Arterial Blood HCO3 39.7H, Arterial Blood Oxygen Saturation 98.9H, Arterial Blood Base Excess 14.5, Kang Test Positive Current Medications Medications (Trade) Dose Ordered Sig/Rosetta Route PRN Reason Start Time Stop Time Status Last Admin Dose Admin Acetaminophen (Tylenol) 650 mg Q4H PRN GT Mild Pain/Temp > 100.5 02/22/18 08:00 03/10/18 15:59 02/24/18 16:48 Ascorbic Acid (Vitamin C) 500 mg DAILY GT 02/22/18 09:00 03/07/18 08:59 02/28/18 08:21 Clonidine HCl (Catapres Tab) 0.1 mg Q8H PRN GT SBP >160 02/22/18 09:00 03/09/18 16:59 Dextrose (Dextrose 50%) 25 ml STAT PRN IV Hypoglycemia 02/22/18 16:00 03/11/18 15:59 Dextrose (Dextrose 50%) 50 ml STAT PRN IV Hypoglycemia 02/22/18 16:00 03/11/18 15:59 Digoxin (Lanoxin) 0.125 mg DAILY GT 02/22/18 09:00 03/07/18 08:59 02/28/18 08:20 Diltiazem HCl (Cardizem) 90 mg EVERY 8 HOURS ORAL 02/26/18 22:00 03/12/18 21:59 03/01/18 05:55 Enoxaparin Sodium (Lovenox) 30 mg Q24H SUBQ 02/22/18 09:00 03/07/18 08:59 02/28/18 08:28 Famotidine (Pepcid) 20 mg DAILY GT 02/22/18 09:00 03/10/18 08:59 02/28/18 08:21 Furosemide (Lasix) 40 mg DAILY IV 02/27/18 09:00 03/29/18 08:59 02/28/18 08:25 Insulin Aspart (NovoLOG) EVERY 6 HOURS SUBQ 02/22/18 06:30 03/07/18 06:29 03/01/18 06:12 Meropenem 1 gm/ Sodium Chloride 110 ml @ 220 mls/hr Q12HR@0600,1800 IVPB 02/22/18 18:00 03/04/18 17:59 03/01/18 05:54 Vancomycin HCl (Vanco rx to dose) 1 ea DAILY PRN MISC Per rx protocol 02/22/18 16:45 03/24/18 16:44 Vancomycin HCl 1 gm/Dextrose 275 ml @ 183.708 mls/hr Q24H IVPB 02/24/18 18:00 03/04/18 17:59 02/28/18 18:11 Jan Sawant MD Mar 01, 2018 08:54
[2018-03-01] MEDS: Digoxin 0.125mg tab GT SCH (09:42)
[2018-03-01] MEDS: Ascorbic Acid 500mg tab GT SCH (09:42)
[2018-03-01] MEDS: Enoxaparin 30mg Inj SUBQ SCH (09:43)
--- NOTE | 2018-03-01 15:22 | Infectious Diseases Prog Note ---
Assessment/Plan Problems: (1) HCAP (healthcare-associated pneumonia) Assessment & Plan: with left lung total white out , suspect mucous plug resolved , S/P intubation due to worsening respiratory failure . sputum culture grew normal anjel so far , continue meropenem empiric coverage for 14 days total , monitor CXR . pulmonary is following. 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 continue local wound care and dressing changes as per hospital protocol . was evaluated by general surgery (3) Sepsis Assessment & Plan: ruled out with repeated blood culture is negative x4 . will stop vancomycin (4) Acute respiratory failure Assessment & Plan: now chronic and ventilator dependant , pulmonary is following, monitor CXR and ABG . she may need tracheostomy Subjective ROS Limited/Unobtainable: Yes Allergies: Coded Allergies: No Known Allergies (Verified , 03/10/07) Subjective she is still intubated on mechanical ventilation, in ICU, awake, with facial congestion , no fever, or chills , had mild secretions from ET tube . Objective Vital Signs Last 24 Hour Vital Signs Date Time Temp Pulse Resp B/P (MAP) Pulse Ox O2 Delivery O2 Flow Rate FiO2 03/01/18 14:00 99 143/84 03/01/18 12:30 99 26 100 03/01/18 11:02 82 28 50 03/01/18 10:00 95 19 143/84 (103) 96 03/01/18 09:42 95 03/01/18 09:00 90 25 132/70 (90) 98 03/01/18 08:30 80 26 50 03/01/18 08:00 50 03/01/18 08:00 Mechanical Ventilator 03/01/18 08:00 98.0 82 22 130/69 (89) 99 98.0 03/01/18 08:00 97 03/01/18 07:16 87 24 50 03/01/18 07:15 88 22 97 03/01/18 07:00 82 19 104/60 (75) 99 03/01/18 06:00 107 28 152/86 (108) 84 03/01/18 05:55 108 162/89 03/01/18 05:12 105 27 50 03/01/18 05:00 104 32 162/89 (113) 82 03/01/18 04:00 Mechanical Ventilator 03/01/18 04:00 101 03/01/18 04:00 97.8 103 30 148/80 (102) 78 97.8 03/01/18 04:00 50 03/01/18 03:00 101 28 130/74 (92) 82 03/01/18 02:48 104 31 50 03/01/18 02:00 104 31 143/82 (102) 100 03/01/18 01:30 102 30 50 03/01/18 01:00 102 29 134/95 (108) 100 03/01/18 00:08 50 03/01/18 00:07 90 03/01/18 00:06 Mechanical Ventilator 03/01/18 00:00 98.6 75 25 160/82 (108) 100 98.6 02/28/18 23:30 103 30 50 02/28/18 23:00 82 16 108/65 (79) 97 02/28/18 22:00 87 19 104/68 (80) 97 02/28/18 21:51 90 122/68 02/28/18 21:00 86 15 122/68 (86) 97 02/28/18 20:47 92 20 50 02/28/18 20:00 50 02/28/18 20:00 Mechanical Ventilator 02/28/18 20:00 100 02/28/18 20:00 98.7 97 22 134/72 (92) 98 98.7 02/28/18 19:30 95 21 50 02/28/18 19:00 97 24 152/79 (103) 99 02/28/18 18:00 92 23 135/77 (96) 96 02/28/18 18:00 97 21 135/77 (96) 98 02/28/18 17:00 88 22 157/73 (101) 100 02/28/18 16:54 80 16 50 02/28/18 16:00 88 02/28/18 16:00 98.6 81 18 115/64 (81) 100 98.6 02/28/18 16:00 50 02/28/18 16:00 Mechanical Ventilator 02/28/18 15:22 93 25 50 Height (Feet): 4 Height (Inches): 0.00 Weight (Pounds): 106 General Appearance: WD/WN, no acute distress, cachetic HEENT: normocephalic, atraumatic, anicteric, mucous membranes moist, PERRL, supple, no JVD Respiratory/Chest: chest wall non-tender, no respiratory distress, no accessory muscle use, decreased breath sounds, expiratory wheezing Cardiovascular: normal peripheral pulses, normal rate, regular rhythm, no gallop/murmur, no JVD Abdomen: normal bowel sounds, soft, non tender, no organomegaly, non distended , no mass, no scars Extremities: no cyanosis, no clubbing Skin: no rash, no lesions, ulcers Neurologic/Psychiatric: alert, oriented x 3, responsive Lymphatic: no neck adenopathy, no groin adenopathy Musculoskeletal: normal muscle bulk, no effusion Current Medications Medications (Trade) Dose Ordered Sig/Rosetta Route PRN Reason Start Time Stop Time Status Last Admin Dose Admin Acetaminophen (Tylenol) 650 mg Q4H PRN GT Mild Pain/Temp > 100.5 02/22/18 08:00 03/10/18 15:59 02/24/18 16:48 Ascorbic Acid (Vitamin C) 500 mg DAILY GT 02/22/18 09:00 03/07/18 08:59 03/01/18 09:42 Clonidine HCl (Catapres Tab) 0.1 mg Q8H PRN GT SBP >160 02/22/18 09:00 03/09/18 16:59 Dextrose (Dextrose 50%) 25 ml STAT PRN IV Hypoglycemia 02/22/18 16:00 03/11/18 15:59 Dextrose (Dextrose 50%) 50 ml STAT PRN IV Hypoglycemia 02/22/18 16:00 03/11/18 15:59 Digoxin (Lanoxin) 0.125 mg DAILY GT 02/22/18 09:00 03/07/18 08:59 03/01/18 09:42 Diltiazem HCl (Cardizem) 90 mg EVERY 8 HOURS ORAL 02/26/18 22:00 03/12/18 21:59 03/01/18 14:00 Enoxaparin Sodium (Lovenox) 30 mg Q24H SUBQ 02/22/18 09:00 03/07/18 08:59 03/01/18 09:43 Famotidine (Pepcid) 20 mg DAILY GT 02/22/18 09:00 03/10/18 08:59 03/01/18 09:42 Furosemide (Lasix) 40 mg DAILY IV 02/27/18 09:00 03/29/18 08:59 03/01/18 09:43 Insulin Aspart (NovoLOG) EVERY 6 HOURS SUBQ 02/22/18 06:30 03/07/18 06:29 03/01/18 06:12 Meropenem 1 gm/ Sodium Chloride 110 ml @ 220 mls/hr Q12HR@0600,1800 IVPB 02/22/18 18:00 03/04/18 17:59 03/01/18 05:54 Vancomycin HCl (Vanco rx to dose) 1 ea DAILY PRN MISC Per rx protocol 02/22/18 16:45 03/24/18 16:44 Vancomycin HCl 1 gm/Dextrose 275 ml @ 183.708 mls/hr Q24H IVPB 02/24/18 18:00 03/04/18 17:59 02/28/18 18:11 Dom Hoffman M.D. Mar 01, 2018 15:22
--- NOTE | 2018-03-01 18:56 | Cardiology Progress Note ---
Assessment/Plan Status: stable Assessment/Plan Assessment/Plan Assessment/Plan 1. Paroxysmal atrial fibrillation. In SR on digoxin 0.125 mg daily and Cardizem 30 tid. Off anticoagulation. Echo Nl EF. 2. Hypertension. On Cardizem 30 tid 3. Respiratory failure, on Vent now in ICU 4. Diabetes, on insulin. 5. Dementia. 6. Dysphagia, status post PEG 7. Sacral decubitus stage III. FU by Dr. Austin. 8. CVA with aphasia and contractures. 9. Trach for prolonged intubation Subjective Cardiovascular: Reports: no symptoms Respiratory: Reports: no symptoms Gastrointestinal/Abdominal: Reports: no symptoms Genitourinary: Reports: no symptoms Subjective no acute events, off pressors. Remains on vent, no changes. unable to wean off , increasing oxygen requirements Patient was received obtunded, responsive to tactile stimuli.On ETT, AC 15-450- 80-5 on Glucerna 1.2 at 45 cc Objective Last 24 Hour Vital Signs Date Time Temp Pulse Resp B/P (MAP) Pulse Ox O2 Delivery O2 Flow Rate FiO2 03/01/18 17:00 90 18 140/77 (98) 96 03/01/18 16:55 102 23 100 03/01/18 16:00 101 03/01/18 16:00 100 03/01/18 16:00 Mechanical Ventilator 03/01/18 16:00 98.2 92 19 136/84 (101) 98 98.2 03/01/18 15:21 100 21 100 03/01/18 15:00 89 20 129/75 (93) 96 03/01/18 14:00 92 19 122/80 (94) 99 03/01/18 14:00 99 143/84 03/01/18 13:00 90 20 137/79 (98) 96 03/01/18 12:30 99 26 100 03/01/18 12:00 98.0 86 22 142/70 (94) 99 98.0 03/01/18 12:00 100 03/01/18 12:00 92 03/01/18 12:00 Mechanical Ventilator 03/01/18 11:02 82 28 50 03/01/18 11:00 95 18 130/80 (97) 96 03/01/18 10:00 95 19 143/84 (103) 96 03/01/18 09:42 95 03/01/18 09:00 90 25 132/70 (90) 98 18 08:30 80 26 50 03/01/18 08:00 100 03/01/18 08:00 Mechanical Ventilator 03/01/18 08:00 98.0 82 22 130/69 (89) 99 98.0 03/01/18 08:00 97 03/01/18 07:16 87 24 50 03/01/18 07:15 88 22 97 03/01/18 07:00 82 19 104/60 (75) 99 03/01/18 06:00 107 28 152/86 (108) 84 03/01/18 05:55 108 162/89 03/01/18 05:12 105 27 50 03/01/18 05:00 104 32 162/89 (113) 82 03/01/18 04:00 Mechanical Ventilator 03/01/18 04:00 101 03/01/18 04:00 97.8 103 30 148/80 (102) 78 97.8 03/01/18 04:00 50 03/01/18 03:00 101 28 130/74 (92) 82 03/01/18 02:48 104 31 50 03/01/18 02:00 104 31 143/82 (102) 100 03/01/18 01:30 102 30 50 03/01/18 01:00 102 29 134/95 (108) 100 03/01/18 00:08 50 03/01/18 00:07 90 03/01/18 00:06 Mechanical Ventilator 03/01/18 00:00 98.6 75 25 160/82 (108) 100 98.6 02/28/18 23:30 103 30 50 02/28/18 23:00 82 16 108/65 (79) 97 02/28/18 22:00 87 19 104/68 (80) 97 18 21:51 90 122/68 02/28/18 21:00 86 15 122/68 (86) 97 18 20:47 92 20 50 02/28/18 20:00 50 02/28/18 20:00 Mechanical Ventilator 02/28/18 20:00 100 02/28/18 20:00 98.7 97 22 134/72 (92) 98 98.7 02/28/18 19:30 95 21 50 02/28/18 19:00 97 24 152/79 (103) 99 General Appearance: no apparent distress, on vent EENT: PERRL/EOMI Neck: non-tender Rhythm: NSR Cardiovascular: normal peripheral pulses Respiratory/Chest: chest wall non-tender Abdomen: normal bowel sounds Extremities: normal range of motion 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 Mar 01, 2018 18:56
[2018-03-01] MEDS: Acetaminophen 650mg/20.3ml GT PRN (20:10)
[2018-03-02] VITALS (24 sets, daily range): BP systolic 95–162; BP diastolic 55–87
[2018-03-02] MEDS: dilTIAZem HCl 90mg tab ORAL SCH ×3 (05:46→21:38)
[2018-03-02] MEDS: Meropenem 1 GM in NS 110 ML IVPB SCH ×2 (05:47→17:54)
[2018-03-02] MEDS: NovoLOG Insulin Flexpen SUBQ SCH ×3 (05:48→17:56)
[2018-03-02 06:44] LABS: HEMATOCRIT 38.6 % (37.0-47.0); HEMOGLOBIN 12.1 G/DL (12.0-16.0); MEAN CORPUSCULAR VOLUME 88 FL (80-99); PLATELET COUNT 441 K/UL (150-450); RED BLOOD COUNT 4.36 M/UL (4.20-5.40); RED CELL DISTRIBUTION WIDTH 16.4 % (11.6-14.8); WHITE BLOOD COUNT 17.8 K/UL (4.8-10.8)
[2018-03-02 07:16] LABS: ANION GAP 0 mmol/L (5-15); BLOOD UREA NITROGEN 29 mg/dL (7-18); CALCIUM 8.7 MG/DL (8.5-10.1); CHLORIDE 106 MMOL/L (98-107); CREATININE 0.6 MG/DL (0.55-1.30); SODIUM 149 MMOL/L (136-145)
[2018-03-02 07:19] LABS: CARBON DIOXIDE 42 MMOL/L (21-32)
--- NOTE | 2018-03-02 08:00 | Nephrology Progress Note ---
Assessment/Plan Assessment/Plan 1. Sepsis - Abx per ID mgmt as WBC elevated 2. Sacral Decub- Gen Surg mgmt. Stable 3. Hyernatremia- monitor while on lasix 4. Resp FL- Patient intubated - Pulm assistance with vent mgmt. Awaiting conservatee for trach and tx to [facility] 5. AFib- digoxin + cardizem 6. DVT prophylaxis- lovenox Subjective Date patient seen: Mar 02, 2018 Time patient seen: 07:59 ROS Limited/Unobtainable: Yes Allergies: Coded Allergies: No Known Allergies (Verified , 03/10/07) Subjective Patient intubated. Clinically stable [facility] ventilated Objective Last 24 Hour Vital Signs Date Time Temp Pulse Resp B/P (MAP) Pulse Ox O2 Delivery O2 Flow Rate FiO2 03/02/18 07:00 93 26 126/68 (87) 98 03/02/18 06:00 86 17 120/62 (81) 97 03/02/18 05:46 94 139/73 03/02/18 05:25 93 20 70 03/02/18 05:00 90 21 139/73 (95) 100 03/02/18 04:09 91 03/02/18 04:00 Mechanical Ventilator 03/02/18 04:00 80 03/02/18 04:00 99.4 87 19 127/69 (88) 100 99.4 03/02/18 03:31 88 20 80 03/02/18 03:00 85 20 108/60 (76) 98 03/02/18 02:00 88 20 112/63 (79) 98 03/02/18 01:00 91 21 109/59 (76) 97 03/02/18 00:55 95 22 85 03/02/18 00:00 98.8 84 20 109/66 (80) 95 98.8 03/02/18 00:00 Mechanical Ventilator 03/02/18 00:00 85 03/01/18 23:59 82 03/01/18 23:05 89 22 90 03/01/18 23:00 94 30 102/54 (70) 95 03/01/18 22:00 71 26 102/77 (85) 94 03/01/18 21:58 78 107/61 03/01/18 21:45 90 03/01/18 21:20 94 26 95 03/01/18 21:00 97 21 107/61 (76) 96 03/01/18 20:00 109 03/01/18 20:00 Mechanical Ventilator 03/01/18 20:00 100 03/01/18 20:00 99.2 109 20 148/83 (104) 97 99.2 03/01/18 19:58 108 26 100 03/01/18 19:00 88 18 151/82 (105) 96 03/01/18 18:00 90 18 136/76 (96) 96 03/01/18 17:00 90 18 140/77 (98) 96 03/01/18 16:55 102 23 100 03/01/18 16:00 101 03/01/18 16:00 100 03/01/18 16:00 Mechanical Ventilator 03/01/18 16:00 98.2 92 19 136/84 (101) 98 98.2 03/01/18 15:21 100 21 100 03/01/18 15:00 89 20 129/75 (93) 96 03/01/18 14:00 92 19 122/80 (94) 99 03/01/18 14:00 99 143/84 03/01/18 13:00 90 20 137/79 (98) 96 03/01/18 12:30 99 26 100 03/01/18 12:00 98.0 86 22 142/70 (94) 99 98.0 03/01/18 12:00 100 03/01/18 12:00 92 03/01/18 12:00 Mechanical Ventilator 03/01/18 11:02 82 28 50 03/01/18 11:00 95 18 130/80 (97) 96 03/01/18 10:00 95 19 143/84 (103) 96 03/01/18 09:42 95 03/01/18 09:00 90 25 132/70 (90) 98 03/01/18 08:30 80 26 50 03/01/18 08:00 100 03/01/18 08:00 Mechanical Ventilator 03/01/18 08:00 98.0 82 22 130/69 (89) 99 98.0 03/01/18 08:00 97 Intake and Output 03/01/18 03/02/18 19:00 07:00 Intake Total 650 ml 940 ml Output Total 1280 ml 705 ml Balance -630 ml 235 ml Free Water 150 ml IV Total 110 ml Tube Feeding 540 ml 540 ml Other 250 ml Output Urine Total 1280 ml 705 ml Laboratory Tests 03/02/18 06:32: White Blood Count 17.8H, Red Blood Count 4.36, Hemoglobin 12.1, Hematocrit 38.6 , Mean Corpuscular Volume 88, Mean Corpuscular Hemoglobin 27.8, Mean Corpuscular Hemoglobin Concent 31.4L, Red Cell Distribution Width 16.4H, Platelet Count 441, Mean Platelet Volume 7.5, Neutrophils (%) (Auto) , Lymphocytes (%) (Auto) , Monocytes (%) (Auto) , Eosinophils (%) (Auto) , Basophils (%) (Auto) , Differential Total Cells Counted 100, Neutrophils % ( Manual) 86H, Lymphocytes % (Manual) 10L, Monocytes % (Manual) 4, Eosinophils % ( Manual) 0, Basophils % (Manual) 0, Band Neutrophils 0, Platelet Estimate IncreasedH, Platelet Morphology Normal, Anisocytosis 1+, Stomatocytes 1+, Sodium Level 149H, Potassium Level 4.0, Chloride Level 106, Carbon Dioxide Level 42*H, Anion Gap 0L, Blood Urea Nitrogen 29H, Creatinine 0.6, Estimat Glomerular Filtration Rate , Glucose Level 163H, Calcium Level 8.7 Height (Feet): 4 Height (Inches): 0.00 Weight (Pounds): 109 General Appearance: WD/WN EENT: PERRL/EOMI Neck: non-tender, normal alignment, supple Cardiovascular: normal peripheral pulses, normal rate Respiratory/Chest: chest wall non-tender, rhonchi - bilaterally Abdomen: normal bowel sounds, non tender, soft Edema: no edema noted Arm (L), no edema noted Arm (R), no edema noted Leg (L), no edema noted Leg (R), no edema noted Pedal (L), no edema noted Pedal (R), no edema noted Generalized Jorge Graf M.D. Mar 02, 2018 08:00
[2018-03-02] MEDS: Ascorbic Acid 500mg tab GT SCH (09:50)
[2018-03-02] MEDS: Digoxin 0.125mg tab GT SCH (09:50)
[2018-03-02] MEDS: Enoxaparin 30mg Inj SUBQ SCH (09:55)
--- NOTE | 2018-03-02 14:45 | Infectious Diseases Prog Note ---
Assessment/Plan Problems: (1) HCAP (healthcare-associated pneumonia) Assessment & Plan: S/P intubation due to worsening respiratory failure . sputum culture grew normal anjel so far , on meropenem empiric coverage for now , will repeat CXR for follow up . pulmonary is following. WBC went up after stopping vancomycin will restart (2) Sacral wound Assessment & Plan: colonized with ESBL producing E coli , klebsiella pneumonia and providenciae stuartii . continue local wound care and dressing changes as per hospital protocol . was evaluated by general surgery (3) Sepsis Assessment & Plan: ruled out with repeated blood culture is negative x4 . (4) Acute respiratory failure Assessment & Plan: now chronic and ventilator dependant , pulmonary is following, monitor CXR and ABG . she may need tracheostomy Subjective ROS Limited/Unobtainable: Yes Allergies: Coded Allergies: No Known Allergies (Verified , 03/10/07) Subjective she is still intubated on mechanical ventilation, in ICU, awake, with facial congestion , no fever, or chills , no diarrhea . Objective Vital Signs Last 24 Hour Vital Signs Date Time Temp Pulse Resp B/P (MAP) Pulse Ox O2 Delivery O2 Flow Rate FiO2 03/02/18 14:19 88 132/83 03/02/18 14:00 88 19 132/83 (99) 98 03/02/18 13:03 100 20 60 03/02/18 13:00 96 20 127/67 (87) 98 03/02/18 12:00 70 03/02/18 12:00 98.9 87 19 120/65 (83) 100 98.9 03/02/18 12:00 92 03/02/18 12:00 Mechanical Ventilator 03/02/18 11:00 95 22 122/67 (85) 98 03/02/18 10:56 129 24 60 03/02/18 10:00 88 22 126/67 (86) 98 03/02/18 09:50 92 03/02/18 09:05 92 17 60 03/02/18 09:00 90 25 130/70 (90) 98 03/02/18 08:00 70 03/02/18 08:00 99.4 87 19 120/65 (83) 100 99.4 03/02/18 08:00 88 03/02/18 08:00 Mechanical Ventilator 03/02/18 07:27 96 25 60 03/02/18 07:00 93 26 126/68 (87) 98 18 06:00 86 17 120/62 (81) 97 18 05:46 94 139/73 18 05:25 93 20 70 18 05:00 90 21 139/73 (95) 100 18 04:09 91 03/02/18 04:00 Mechanical Ventilator 03/02/18 04:00 80 03/02/18 04:00 99.4 87 19 127/69 (88) 100 99.4 03/02/18 03:31 88 20 80 03/02/18 03:00 85 20 108/60 (76) 98 03/02/18 02:00 88 20 112/63 (79) 98 03/02/18 01:00 91 21 109/59 (76) 97 03/02/18 00:55 95 22 85 03/02/18 00:00 98.8 84 20 109/66 (80) 95 98.8 03/02/18 00:00 Mechanical Ventilator 03/02/18 00:00 85 03/01/18 23:59 82 03/01/18 23:05 89 22 90 03/01/18 23:00 94 30 102/54 (70) 95 03/01/18 22:00 71 26 102/77 (85) 94 03/01/18 21:58 78 107/61 18 21:45 90 03/01/18 21:20 94 26 95 03/01/18 21:00 97 21 107/61 (76) 96 03/01/18 20:00 109 03/01/18 20:00 Mechanical Ventilator 03/01/18 20:00 100 03/01/18 20:00 99.2 109 20 148/83 (104) 97 99.2 18 19:58 108 26 100 18 19:00 88 18 151/82 (105) 96 18 18:00 90 18 136/76 (96) 96 03/01/18 17:00 90 18 140/77 (98) 96 03/01/18 16:55 102 23 100 18 16:00 101 03/01/18 16:00 100 03/01/18 16:00 Mechanical Ventilator 03/01/18 16:00 98.2 92 19 136/84 (101) 98 98.2 03/01/18 15:21 100 21 100 03/01/18 15:00 89 20 129/75 (93) 96 Height (Feet): 4 Height (Inches): 0.00 Weight (Pounds): 109 General Appearance: WD/WN, no acute distress HEENT: normocephalic, atraumatic, anicteric, mucous membranes moist, PERRL Respiratory/Chest: chest wall non-tender, lungs clear, normal breath sounds, no respiratory distress, no accessory muscle use Cardiovascular: normal peripheral pulses, normal rate, regular rhythm, no gallop/murmur, no JVD Abdomen: normal bowel sounds, soft, non tender, no organomegaly, non distended , no mass, no scars Genitourinary: normal external genitalia Extremities: no cyanosis, no clubbing Skin: no rash, no lesions, ulcers - sacral and hip Neurologic/Psychiatric: alert, unresponsiveness Laboratory Tests Test 03/02/18 06:32 White Blood Count 17.8 K/UL (4.8-10.8) H Red Blood Count 4.36 M/UL (4.20-5.40) Hemoglobin 12.1 G/DL (12.0-16.0) Hematocrit 38.6 % (37.0-47.0) Mean Corpuscular Volume 88 FL (80-99) Mean Corpuscular Hemoglobin 27.8 PG (27.0-31.0) Mean Corpuscular Hemoglobin Concent 31.4 G/DL (32.0-36.0) L Red Cell Distribution Width 16.4 % (11.6-14.8) H Platelet Count 441 K/UL (150-450) Mean Platelet Volume 7.5 FL (6.5-10.1) Neutrophils (%) (Auto) % (45.0-75.0) Lymphocytes (%) (Auto) % (20.0-45.0) Monocytes (%) (Auto) % (1.0-10.0) Eosinophils (%) (Auto) % (0.0-3.0) Basophils (%) (Auto) % (0.0-2.0) Differential Total Cells Counted 100 Neutrophils % (Manual) 86 % (45-75) H Lymphocytes % (Manual) 10 % (20-45) L Monocytes % (Manual) 4 % (1-10) Eosinophils % (Manual) 0 % (0-3) Basophils % (Manual) 0 % (0-2) Band Neutrophils 0 % (0-8) Platelet Estimate Increased H Platelet Morphology Normal Anisocytosis 1+ Stomatocytes 1+ Sodium Level 149 MMOL/L (136-145) H Potassium Level 4.0 MMOL/L (3.5-5.1) Chloride Level 106 MMOL/L (98-107) Carbon Dioxide Level 42 MMOL/L (21-32) *H Anion Gap 0 mmol/L (5-15) L Blood Urea Nitrogen 29 mg/dL (7-18) H Creatinine 0.6 MG/DL (0.55-1.30) Estimat Glomerular Filtration Rate mL/min (>60) Glucose Level 163 MG/DL (74-106) H Calcium Level 8.7 MG/DL (8.5-10.1) Current Medications Medications (Trade) Dose Ordered Sig/Rosetta Route PRN Reason Start Time Stop Time Status Last Admin Dose Admin Acetaminophen (Tylenol) 650 mg Q4H PRN GT Mild Pain/Temp > 100.5 02/22/18 08:00 03/10/18 15:59 03/01/18 20:10 Ascorbic Acid (Vitamin C) 500 mg DAILY GT 02/22/18 09:00 03/07/18 08:59 03/02/18 09:50 Clonidine HCl (Catapres Tab) 0.1 mg Q8H PRN GT SBP >160 02/22/18 09:00 03/09/18 16:59 Dextrose (Dextrose 50%) 25 ml STAT PRN IV Hypoglycemia 02/22/18 16:00 03/11/18 15:59 Dextrose (Dextrose 50%) 50 ml STAT PRN IV Hypoglycemia 02/22/18 16:00 03/11/18 15:59 Digoxin (Lanoxin) 0.125 mg DAILY GT 02/22/18 09:00 03/07/18 08:59 03/02/18 09:50 Diltiazem HCl (Cardizem) 90 mg EVERY 8 HOURS ORAL 02/26/18 22:00 03/12/18 21:59 03/02/18 14:19 Enoxaparin Sodium (Lovenox) 30 mg Q24H SUBQ 02/22/18 09:00 03/07/18 08:59 03/02/18 09:55 Famotidine (Pepcid) 20 mg DAILY GT 02/22/18 09:00 03/10/18 08:59 03/02/18 09:50 Furosemide (Lasix) 40 mg DAILY IV 02/27/18 09:00 03/29/18 08:59 03/02/18 09:50 Insulin Aspart (NovoLOG) EVERY 6 HOURS SUBQ 02/22/18 06:30 03/07/18 06:29 03/02/18 12:15 Meropenem 1 gm/ Sodium Chloride 110 ml @ 220 mls/hr Q12HR@0600,1800 IVPB 02/22/18 18:00 03/04/18 17:59 03/02/18 05:47 Dom Hoffman M.D. Mar 02, 2018 14:45
--- NOTE | 2018-03-02 15:29 | Cardiology Progress Note ---
Assessment/Plan Status: not improved Assessment/Plan Assessment/Plan Assessment/Plan 1. Paroxysmal atrial fibrillation. In SR on digoxin 0.125 mg daily and Cardizem 30 tid. Off anticoagulation. Echo Nl EF. 2. Hypertension. On Cardizem 30 tid 3. Respiratory failure, on Vent now in ICU 4. Diabetes, on insulin. 5. Dementia. 6. Dysphagia, status post PEG 7. Sacral decubitus stage III. FU by Dr. Austin. 8. CVA with aphasia and contractures. 9. Trach for prolonged intubation Subjective Cardiovascular: Reports: no symptoms Respiratory: Reports: no symptoms Gastrointestinal/Abdominal: Reports: no symptoms Genitourinary: Reports: no symptoms Subjective Pt in no acute distress. Opens eyes spontaneously and withdraws to pain. Remains orally intubated, with fiO2 of 50%, saturating 96-98%. Objective Last 24 Hour Vital Signs Date Time Temp Pulse Resp B/P (MAP) Pulse Ox O2 Delivery O2 Flow Rate FiO2 03/02/18 14:40 97 16 55 03/02/18 14:19 88 132/83 03/02/18 14:00 88 19 132/83 (99) 98 03/02/18 13:03 100 20 60 03/02/18 13:00 96 20 127/67 (87) 98 03/02/18 12:00 70 03/02/18 12:00 98.9 87 19 120/65 (83) 100 98.9 03/02/18 12:00 92 03/02/18 12:00 Mechanical Ventilator 03/02/18 11:00 95 22 122/67 (85) 98 03/02/18 10:56 129 24 60 03/02/18 10:00 88 22 126/67 (86) 98 03/02/18 09:50 92 03/02/18 09:05 92 17 60 03/02/18 09:00 90 25 130/70 (90) 98 03/02/18 08:00 70 03/02/18 08:00 99.4 87 19 120/65 (83) 100 99.4 03/02/18 08:00 88 03/02/18 08:00 Mechanical Ventilator 03/02/18 07:27 96 25 60 03/02/18 07:00 93 26 126/68 (87) 98 03/02/18 06:00 86 17 120/62 (81) 97 18 05:46 94 139/73 18 05:25 93 20 70 03/02/18 05:00 90 21 139/73 (95) 100 18 04:09 91 03/02/18 04:00 Mechanical Ventilator 03/02/18 04:00 80 03/02/18 04:00 99.4 87 19 127/69 (88) 100 99.4 03/02/18 03:31 88 20 80 03/02/18 03:00 85 20 108/60 (76) 98 18 02:00 88 20 112/63 (79) 98 18 01:00 91 21 109/59 (76) 97 03/02/18 00:55 95 22 85 03/02/18 00:00 98.8 84 20 109/66 (80) 95 98.8 03/02/18 00:00 Mechanical Ventilator 03/02/18 00:00 85 03/01/18 23:59 82 03/01/18 23:05 89 22 90 03/01/18 23:00 94 30 102/54 (70) 95 18 22:00 71 26 102/77 (85) 94 18 21:58 78 107/61 03/01/18 21:45 90 03/01/18 21:20 94 26 95 03/01/18 21:00 97 21 107/61 (76) 96 03/01/18 20:00 109 03/01/18 20:00 Mechanical Ventilator 03/01/18 20:00 100 03/01/18 20:00 99.2 109 20 148/83 (104) 97 99.2 03/01/18 19:58 108 26 100 18 19:00 88 18 151/82 (105) 96 03/01/18 18:00 90 18 136/76 (96) 96 18 17:00 90 18 140/77 (98) 96 18 16:55 102 23 100 18 16:00 101 18 16:00 100 18 16:00 Mechanical Ventilator 03/01/18 16:00 98.2 92 19 136/84 (101) 98 98.2 General Appearance: on vent EENT: PERRL/EOMI Neck: non-tender Rhythm: NSR Cardiovascular: normal peripheral pulses Respiratory/Chest: chest wall non-tender Abdomen: normal bowel sounds Extremities: normal range of motion Neurologic: personal consultant II-XII grossly normal Intake and Output 03/01/18 03/02/18 19:00 07:00 Intake Total 650 ml 940 ml Output Total 1280 ml 705 ml Balance -630 ml 235 ml Free Water 150 ml IV Total 110 ml Tube Feeding 540 ml 540 ml Other 250 ml Output Urine Total 1280 ml 705 ml Laboratory Tests Test 03/02/18 06:32 White Blood Count 17.8 K/UL (4.8-10.8) H Red Blood Count 4.36 M/UL (4.20-5.40) Hemoglobin 12.1 G/DL (12.0-16.0) Hematocrit 38.6 % (37.0-47.0) Mean Corpuscular Volume 88 FL (80-99) Mean Corpuscular Hemoglobin 27.8 PG (27.0-31.0) Mean Corpuscular Hemoglobin Concent 31.4 G/DL (32.0-36.0) L Red Cell Distribution Width 16.4 % (11.6-14.8) H Platelet Count 441 K/UL (150-450) Mean Platelet Volume 7.5 FL (6.5-10.1) Neutrophils (%) (Auto) % (45.0-75.0) Lymphocytes (%) (Auto) % (20.0-45.0) Monocytes (%) (Auto) % (1.0-10.0) Eosinophils (%) (Auto) % (0.0-3.0) Basophils (%) (Auto) % (0.0-2.0) Differential Total Cells Counted 100 Neutrophils % (Manual) 86 % (45-75) H Lymphocytes % (Manual) 10 % (20-45) L Monocytes % (Manual) 4 % (1-10) Eosinophils % (Manual) 0 % (0-3) Basophils % (Manual) 0 % (0-2) Band Neutrophils 0 % (0-8) Platelet Estimate Increased H Platelet Morphology Normal Anisocytosis 1+ Stomatocytes 1+ Sodium Level 149 MMOL/L (136-145) H Potassium Level 4.0 MMOL/L (3.5-5.1) Chloride Level 106 MMOL/L (98-107) Carbon Dioxide Level 42 MMOL/L (21-32) *H Anion Gap 0 mmol/L (5-15) L Blood Urea Nitrogen 29 mg/dL (7-18) H Creatinine 0.6 MG/DL (0.55-1.30) Estimat Glomerular Filtration Rate mL/min (>60) Glucose Level 163 MG/DL (74-106) H Calcium Level 8.7 MG/DL (8.5-10.1) Maxx Ureña M.D. Mar 02, 2018 15:29
--- NOTE | 2018-03-02 15:59 | Diagnostic Imaging Report ---
Indication: Cough Comparison: 02/25/2018 A single view chest radiograph was obtained. Findings: Interstitial opacities have improved slightly since the last examination. There is a focus of airspace disease of the left lung base which persists. The exam is limited or rotation. Endotracheal tube position remains satisfactory. Heart size is normal. IMPRESSION: Improved interstitial edema. Left basilar airspace disease noted.
[2018-03-02] MEDS: Acetaminophen 650mg/20.3ml GT PRN (16:32)
[2018-03-02] MEDS ORDERED: Vancomycin 1gm/D5W 275ml IVPB SCH ×2 (17:00)
--- NOTE | 2018-03-02 23:49 | General Progress Note ---
Assessment/Plan Assessment/Plan Dementia encephalopathy the pt lacks capacity to make decisions haldol prn will fill out the forms Subjective Date patient seen: Mar 02, 2018 Allergies: Coded Allergies: No Known Allergies (Verified , 03/10/07) Subjective the pt is confused lethargic. the pt has severe cognitive impairment. Objective Last 24 Hour Vital Signs Date Time Temp Pulse Resp B/P (MAP) Pulse Ox O2 Delivery O2 Flow Rate FiO2 03/02/18 23:21 107 18 55 03/02/18 23:00 106 23 143/78 (99) 90 106 03/02/18 22:00 105 23 143/78 (99) 90 105 03/02/18 21:38 105 162/87 03/02/18 21:00 91 22 136/85 (102) 93 92 03/02/18 20:51 104 22 55 03/02/18 20:00 99.0 91 25 162/87 (112) 91 99.0 91 03/02/18 19:03 93 25 55 03/02/18 19:00 97 132/69 (90) 03/02/18 18:00 87 132/69 (90) 03/02/18 17:02 100.1 03/02/18 17:00 79 95/55 (68) 03/02/18 16:43 89 18 55 03/02/18 16:32 101.4 03/02/18 16:00 70 03/02/18 16:00 101.4 21 101/64 (76) 97 101.4 03/02/18 16:00 92 03/02/18 16:00 Mechanical Ventilator 03/02/18 15:00 98 21 129/68 (88) 97 03/02/18 14:40 97 16 55 03/02/18 14:19 88 132/83 03/02/18 14:00 88 19 132/83 (99) 98 03/02/18 13:03 100 20 60 03/02/18 13:00 96 20 127/67 (87) 98 03/02/18 12:00 70 03/02/18 12:00 98.9 87 19 120/65 (83) 100 98.9 03/02/18 12:00 92 03/02/18 12:00 Mechanical Ventilator 03/02/18 11:00 95 22 122/67 (85) 98 03/02/18 10:56 129 24 60 7/17/18 10:00 88 22 126/67 (86) 98 03/02/18 09:50 92 03/02/18 09:05 92 17 60 03/02/18 09:00 90 25 130/70 (90) 98 03/02/18 08:00 70 03/02/18 08:00 99.4 87 19 120/65 (83) 100 99.4 03/02/18 08:00 88 03/02/18 08:00 Mechanical Ventilator 03/02/18 07:27 96 25 60 03/02/18 07:00 93 26 126/68 (87) 98 03/02/18 06:00 86 17 120/62 (81) 97 03/02/18 05:46 94 139/73 03/02/18 05:25 93 20 70 03/02/18 05:00 90 21 139/73 (95) 100 03/02/18 04:09 91 03/02/18 04:00 Mechanical Ventilator 03/02/18 04:00 80 03/02/18 04:00 99.4 87 19 127/69 (88) 100 99.4 03/02/18 03:31 88 20 80 03/02/18 03:00 85 20 108/60 (76) 98 03/02/18 02:00 88 20 112/63 (79) 98 03/02/18 01:00 91 21 109/59 (76) 97 03/02/18 00:55 95 22 85 03/02/18 00:00 98.8 84 20 109/66 (80) 95 98.8 03/02/18 00:00 Mechanical Ventilator 03/02/18 00:00 85 03/01/18 23:59 82 Intake and Output 03/01/18 03/02/18 19:00 07:00 Intake Total 650 ml 940 ml Output Total 1280 ml 705 ml Balance -630 ml 235 ml Free Water 150 ml IV Total 110 ml Tube Feeding 540 ml 540 ml Other 250 ml Output Urine Total 1280 ml 705 ml Laboratory Tests 03/02/18 06:32: White Blood Count 17.8H, Red Blood Count 4.36, Hemoglobin 12.1, Hematocrit 38.6 , Mean Corpuscular Volume 88, Mean Corpuscular Hemoglobin 27.8, Mean Corpuscular Hemoglobin Concent 31.4L, Red Cell Distribution Width 16.4H, Platelet Count 441, Mean Platelet Volume 7.5, Neutrophils (%) (Auto) , Lymphocytes (%) (Auto) , Monocytes (%) (Auto) , Eosinophils (%) (Auto) , Basophils (%) (Auto) , Differential Total Cells Counted 100, Neutrophils % ( Manual) 86H, Lymphocytes % (Manual) 10L, Monocytes % (Manual) 4, Eosinophils % ( Manual) 0, Basophils % (Manual) 0, Band Neutrophils 0, Platelet Estimate IncreasedH, Platelet Morphology Normal, Anisocytosis 1+, Stomatocytes 1+, Sodium Level 149H, Potassium Level 4.0, Chloride Level 106, Carbon Dioxide Level 42*H, Anion Gap 0L, Blood Urea Nitrogen 29H, Creatinine 0.6, Estimat Glomerular Filtration Rate , Glucose Level 163H, Calcium Level 8.7 Height (Feet): 4 Height (Inches): 0.00 Weight (Pounds): 109 Darling Baker MD Mar 02, 2018 23:49
[2018-03-03] VITALS (24 sets, daily range): BP systolic 95–146; BP diastolic 50–91
[2018-03-03] MEDS: NovoLOG Insulin Flexpen SUBQ SCH ×5 (00:09→23:35)
--- NOTE | 2018-03-03 00:30 | Progress Note ---
DATE: 03/02/2018 PULMONARY FOLLOWUP SUBJECTIVE: The patient was seen in the ICU. She remains on 100% FiO2, is on AC mode. No overnight events noted. OBJECTIVE: VITAL SIGNS: Blood pressure is 130/60, heart rate 82, respirations 18, and she is afebrile. CHEST: breath sounds bilaterally with normal heart sounds. ABDOMEN: Soft. EXTREMITIES: No edema. IMPRESSION: 1. Tardive dyskinesia. 2. Respiratory failure. DISCUSSION: The patient does not have large enough effusion to be tapped. She is unable to wean with high FiO2 requirements. I anticipate she will require tracheostomy. Discussed with primary care physician. We will follow as needed on daily basis. We will continue vent and decrease FiO2 as tolerated. Jan Sawant M.D. DR: ROCK JOB#: [id number] CC:
[2018-03-03] MEDS: Acetaminophen 650mg/20.3ml GT PRN (05:13)
[2018-03-03] MEDS: Meropenem 1 GM in NS 110 ML IVPB SCH ×2 (06:04→17:45)
[2018-03-03] MEDS: dilTIAZem HCl 90mg tab ORAL SCH ×3 (06:05→21:39)
--- NOTE | 2018-03-03 06:47 | Pulmonology Progress Note ---
Assessment/Plan Assessment/Plan IMPRESSION: 1. Bilateral pneumonia. Improved. 2. Respiratory failure; intubated; remains hypoxemic with 100% FiO2 3. Hypertension. 4. Diabetes mellitus. 5. Dehydration, hypernatremia 6. Tardive dyskinesia 7. Anemia DISCUSSION: Discussed with PMD Will need trach Continue vent Unable to wean Subjective Interval Events: WBC higher; CXR improved; HCO3 also increased Constitutional: Reports: no symptoms HEENT: Repors: no symptoms Cardiovascular: Reports: no symptoms Gastrointestinal/Abdominal: Reports: no symptoms Allergies: Coded Allergies: No Known Allergies (Verified , 03/10/07) All Systems: reviewed and negative except above Objective Last 24 Hour Vital Signs Date Time Temp Pulse Resp B/P (MAP) Pulse Ox O2 Delivery O2 Flow Rate FiO2 03/03/18 06:05 110 110/52 03/03/18 05:43 100.3 03/03/18 05:13 101.3 03/03/18 05:00 101.3 112 20 118/70 (86) 96 101.3 112 03/03/18 04:45 113 18 80 03/03/18 04:00 Mechanical Ventilator 03/03/18 04:00 112 03/03/18 04:00 100.0 112 20 120/66 (84) 96 100.0 112 03/03/18 04:00 80 03/03/18 03:00 102 17 116/56 (76) 95 93 03/03/18 02:53 101 21 80 03/03/18 02:00 92 17 102/50 (67) 97 93 03/03/18 01:00 93 16 103/63 (76) 97 93 03/03/18 00:40 93 16 80 03/03/18 00:00 70 03/03/18 00:00 98.0 106 23 146/83 (104) 90 98.0 106 03/03/18 00:00 95 03/03/18 00:00 80 03/03/18 00:00 Mechanical Ventilator 03/02/18 23:21 107 18 55 03/02/18 23:00 80 03/02/18 23:00 106 23 143/78 (99) 90 106 03/02/18 22:00 105 23 143/78 (99) 90 105 03/02/18 21:38 105 162/87 03/02/18 21:00 91 22 136/85 (102) 93 92 18 20:51 104 22 55 717/18 20:00 70 718 20:00 Mechanical Ventilator 18 20:00 99.0 91 25 162/87 (112) 91 99.0 91 18 20:00 92 18 20:00 55 717/18 19:03 93 25 55 03/02/18 19:00 97 132/69 (90) 18 18:00 87 132/69 (90) 18 17:00 79 95/55 (68) 18 16:43 89 18 55 03/02/18 16:32 101.4 18 16:00 70 18 16:00 101.4 21 101/64 (76) 97 101.4 18 16:00 92 18 16:00 Mechanical Ventilator 03/02/18 15:00 98 21 129/68 (88) 97 18 14:40 97 16 55 18 14:19 88 132/83 18 14:00 88 19 132/83 (99) 98 18 13:03 100 20 60 03/02/18 13:00 96 20 127/67 (87) 98 18 12:00 70 18 12:00 98.9 87 19 120/65 (83) 100 98.9 18 12:00 92 18 12:00 Mechanical Ventilator 03/02/18 11:00 95 22 122/67 (85) 98 18 10:56 129 24 60 03/02/18 10:00 88 22 126/67 (86) 98 03/02/18 09:50 92 03/02/18 09:05 92 17 60 03/02/18 09:00 90 25 130/70 (90) 98 18 08:00 70 18 08:00 99.4 87 19 120/65 (83) 100 99.4 18 08:00 88 18 08:00 Mechanical Ventilator 18 07:27 96 25 60 18 07:00 93 26 126/68 (87) 98 Intake and Output 03/02/18 03/03/18 19:00 07:00 Intake Total 925.0 ml 540 ml Output Total 940 ml 1010 ml Balance -15.0 ml -470 ml Free Water 90 ml IV Total 385.0 ml Tube Feeding 540 ml 450 ml Output Urine Total 940 ml 1010 ml # Bowel Movements 1 3 General Appearance: no acute distress HEENT: normocephalic Respiratory/Chest: chest wall non-tender, lungs clear Cardiovascular: normal peripheral pulses, normal rate Abdomen: normal bowel sounds, soft, non tender Laboratory Tests 03/03/18 05:49: White Blood Count [Pending], Red Blood Count [Pending], Hemoglobin [Pending], Hematocrit [Pending], Mean Corpuscular Volume [Pending], Mean Corpuscular Hemoglobin [Pending], Mean Corpuscular Hemoglobin Concent [Pending], Red Cell Distribution Width [Pending], Platelet Count [Pending], Mean Platelet Volume [ Pending], Neutrophils (%) (Auto) [Pending], Lymphocytes (%) (Auto) [Pending], Monocytes (%) (Auto) [Pending], Eosinophils (%) (Auto) [Pending], Basophils (%) (Auto) [Pending], Sodium Level [Pending], Potassium Level [Pending], Chloride Level [Pending], Carbon Dioxide Level [Pending], Blood Urea Nitrogen [Pending], Creatinine [Pending], Estimat Glomerular Filtration Rate [Pending], Glucose Level [Pending], Calcium Level [Pending] Current Medications Medications (Trade) Dose Ordered Sig/Rosetta Route PRN Reason Start Time Stop Time Status Last Admin Dose Admin Acetaminophen (Tylenol) 650 mg Q4H PRN GT Mild Pain/Temp > 100.5 02/22/18 08:00 03/10/18 15:59 03/03/18 05:13 Ascorbic Acid (Vitamin C) 500 mg DAILY GT 02/22/18 09:00 03/07/18 08:59 03/02/18 09:50 Clonidine HCl (Catapres Tab) 0.1 mg Q8H PRN GT SBP >160 02/22/18 09:00 03/09/18 16:59 Dextrose (Dextrose 50%) 25 ml STAT PRN IV Hypoglycemia 02/22/18 16:00 03/11/18 15:59 Dextrose (Dextrose 50%) 50 ml STAT PRN IV Hypoglycemia 02/22/18 16:00 03/11/18 15:59 Digoxin (Lanoxin) 0.125 mg DAILY GT 02/22/18 09:00 03/07/18 08:59 03/02/18 09:50 Diltiazem HCl (Cardizem) 90 mg EVERY 8 HOURS ORAL 02/26/18 22:00 03/12/18 21:59 03/03/18 06:05 Enoxaparin Sodium (Lovenox) 30 mg Q24H SUBQ 02/22/18 09:00 03/07/18 08:59 03/02/18 09:55 Famotidine (Pepcid) 20 mg DAILY GT 02/22/18 09:00 03/10/18 08:59 03/02/18 09:50 Furosemide (Lasix) 40 mg DAILY IV 02/27/18 09:00 03/29/18 08:59 03/02/18 09:50 Insulin Aspart (NovoLOG) EVERY 6 HOURS SUBQ 02/22/18 06:30 03/07/18 06:29 03/03/18 06:06 Meropenem 1 gm/ Sodium Chloride 110 ml @ 220 mls/hr Q12HR@0600,1800 IVPB 02/22/18 18:00 03/04/18 17:59 03/03/18 06:04 Vancomycin HCl (Vanco rx to dose) 1 ea DAILY PRN MISC Per rx protocol 03/02/18 14:45 04/01/18 14:44 Vancomycin HCl 1 gm/Dextrose 275 ml @ 183.708 mls/hr Q24H IVPB 03/02/18 17:00 03/07/18 16:59 03/02/18 16:31 Jan Sawant MD Mar 03, 2018 06:47
[2018-03-03 06:53] LABS: HEMATOCRIT 41.8 % (37.0-47.0); MEAN CORPUSCULAR VOLUME 88 FL (80-99); PLATELET COUNT 538 K/UL (150-450); RED BLOOD COUNT 4.73 M/UL (4.20-5.40); RED CELL DISTRIBUTION WIDTH 16.3 % (11.6-14.8); WHITE BLOOD COUNT 19.1 K/UL (4.8-10.8)
[2018-03-03 07:19] LABS: ANION GAP 4 mmol/L (5-15); BLOOD UREA NITROGEN 44 mg/dL (7-18); CALCIUM 8.8 MG/DL (8.5-10.1); CHLORIDE 106 MMOL/L (98-107); CREATININE 0.8 MG/DL (0.55-1.30); POTASSIUM 3.7 MMOL/L (3.5-5.1); SODIUM 151 MMOL/L (136-145)
[2018-03-03 07:21] LABS: CARBON DIOXIDE 41 MMOL/L (21-32)
--- NOTE | 2018-03-03 08:07 | Nephrology Progress Note ---
Assessment/Plan Assessment/Plan 1. Sepsis - Abx per ID mgmt 2. Sacral Decub- Gen Surg mgmt. Stable 3. Hyernatremia- worsening, will DC lasix 4. Resp FL- Patient intubated - Pulm assistance with vent mgmt. - Conservatee for trach 5. AFib- digoxin + cardizem 6. DVT prophylaxis- lovenox Subjective Date patient seen: Mar 03, 2018 Time patient seen: 08:03 ROS Limited/Unobtainable: Yes Allergies: Coded Allergies: No Known Allergies (Verified , 03/10/07) Subjective Patient intubated. Awaiting poss trach Objective Last 24 Hour Vital Signs Date Time Temp Pulse Resp B/P (MAP) Pulse Ox O2 Delivery O2 Flow Rate FiO2 03/03/18 07:22 99 20 80 03/03/18 07:00 99.2 98 22 109/58 (75) 94 99.2 98 03/03/18 06:05 110 110/52 03/03/18 06:00 100.3 100 20 104/55 (71) 96 100.3 100 03/03/18 05:43 100.3 03/03/18 05:13 101.3 03/03/18 05:00 101.3 112 20 118/70 (86) 96 101.3 112 03/03/18 04:45 113 18 80 03/03/18 04:00 Mechanical Ventilator 03/03/18 04:00 112 03/03/18 04:00 100.0 112 20 120/66 (84) 96 100.0 112 03/03/18 04:00 80 03/03/18 03:00 102 17 116/56 (76) 95 93 03/03/18 02:53 101 21 80 03/03/18 02:00 92 17 102/50 (67) 97 93 03/03/18 01:00 93 16 103/63 (76) 97 93 03/03/18 00:40 93 16 80 03/03/18 00:00 70 03/03/18 00:00 98.0 106 23 146/83 (104) 90 98.0 106 03/03/18 00:00 95 03/03/18 00:00 80 03/03/18 00:00 Mechanical Ventilator 03/02/18 23:21 107 18 55 03/02/18 23:00 80 7/17/18 23:00 106 23 143/78 (99) 90 106 18 22:00 105 23 143/78 (99) 90 105 18 21:38 105 162/87 18 21:00 91 22 136/85 (102) 93 92 18 20:51 104 22 55 18 20:00 70 18 20:00 Mechanical Ventilator 03/02/18 20:00 99.0 91 25 162/87 (112) 91 99.0 91 18 20:00 92 18 20:00 55 18 19:03 93 25 55 18 19:00 97 132/69 (90) 18 18:00 87 132/69 (90) 03/02/18 17:00 79 95/55 (68) 03/02/18 16:43 89 18 55 03/02/18 16:32 101.4 18 16:00 70 03/02/18 16:00 101.4 21 101/64 (76) 97 101.4 03/02/18 16:00 92 03/02/18 16:00 Mechanical Ventilator 03/02/18 15:00 98 21 129/68 (88) 97 03/02/18 14:40 97 16 55 18 14:19 88 132/83 18 14:00 88 19 132/83 (99) 98 18 13:03 100 20 60 03/02/18 13:00 96 20 127/67 (87) 98 18 12:00 70 03/02/18 12:00 98.9 87 19 120/65 (83) 100 98.9 18 12:00 92 03/02/18 12:00 Mechanical Ventilator 03/02/18 11:00 95 22 122/67 (85) 98 18 10:56 129 24 60 18 10:00 88 22 126/67 (86) 98 18 09:50 92 03/02/18 09:05 92 17 60 18 09:00 90 25 130/70 (90) 98 Intake and Output 18 18 19:00 07:00 Intake Total 925.0 ml 585 ml Output Total 940 ml 1110 ml Balance -15.0 ml -525 ml Free Water 90 ml IV Total 385.0 ml Tube Feeding 540 ml 495 ml Output Urine Total 940 ml 1110 ml # Bowel Movements 1 3 Laboratory Tests 03/03/18 05:49: White Blood Count 19.1H, Red Blood Count 4.73, Hemoglobin 13.0, Hematocrit 41.8 , Mean Corpuscular Volume 88, Mean Corpuscular Hemoglobin 27.5, Mean Corpuscular Hemoglobin Concent 31.2L, Red Cell Distribution Width 16.3H, Platelet Count 538H, Mean Platelet Volume 7.6, Neutrophils (%) (Auto) , Lymphocytes (%) (Auto) , Monocytes (%) (Auto) , Eosinophils (%) (Auto) , Basophils (%) (Auto) , Neutrophils % (Manual) [Pending], Lymphocytes % (Manual) [Pending], Platelet Estimate [Pending], Platelet Morphology [Pending], Sodium Level 151H, Potassium Level 3.7, Chloride Level 106, Carbon Dioxide Level 41*H, Anion Gap 4L, Blood Urea Nitrogen 44H, Creatinine 0.8, Estimat Glomerular Filtration Rate , Glucose Level 200H, Calcium Level 8.8 Height (Feet): 4 Height (Inches): 0.00 Weight (Pounds): 98 General Appearance: WD/WN, no apparent distress EENT: PERRL/EOMI, normal ENT inspection Neck: non-tender, normal alignment Cardiovascular: normal peripheral pulses, normal rate Respiratory/Chest: chest wall non-tender, lungs clear Abdomen: normal bowel sounds, non tender, soft Edema: no edema noted Arm (L), no edema noted Arm (R), no edema noted Leg (L), no edema noted Leg (R), no edema noted Pedal (L), no edema noted Pedal (R), no edema noted Generalized Jorge Graf M.D. Mar 03, 2018 08:07
[2018-03-03] MEDS: Digoxin 0.125mg tab GT SCH (08:38)
[2018-03-03] MEDS: Ascorbic Acid 500mg tab GT SCH (08:38)
[2018-03-03] MEDS: Enoxaparin 30mg Inj SUBQ SCH (08:39)
--- NOTE | 2018-03-03 11:35 | Cardiology Progress Note ---
Assessment/Plan Status: stable Assessment/Plan Assessment/Plan Assessment/Plan 1. Paroxysmal atrial fibrillation. In SR on digoxin 0.125 mg daily and Cardizem 30 tid. Off anticoagulation. Echo Nl EF. 2. Hypertension. On Cardizem 30 tid 3. Respiratory failure, on Vent now in ICU 4. Diabetes, on insulin. 5. Dementia. 6. Dysphagia, status post PEG 7. Sacral decubitus stage III. FU by Dr. Austin. 8. CVA with aphasia and contractures. 9. Trach for prolonged intubation Subjective Cardiovascular: Reports: no symptoms Respiratory: Reports: no symptoms Gastrointestinal/Abdominal: Reports: no symptoms Genitourinary: Reports: no symptoms Subjective Pt in no acute distress. Opens eyes spontaneously and withdraws to pain. Non verbal. Remains orally intubated, with fiO2 of 50%, saturating 96-98%. Vent settings A/C 15, Vt 450, FI02 80%, PEEP +5 Objective Last 24 Hour Vital Signs Date Time Temp Pulse Resp B/P (MAP) Pulse Ox O2 Delivery O2 Flow Rate FiO2 03/03/18 11:00 98.9 84 18 128/91 (103) 96 98.9 84 03/03/18 10:00 79 18 111/59 (76) 98 79 03/03/18 09:22 89 20 80 03/03/18 09:00 84 19 95/52 (66) 97 84 03/03/18 08:38 92 03/03/18 08:00 Mechanical Ventilator 03/03/18 08:00 95 03/03/18 08:00 104 16 108/56 (73) 97 98 03/03/18 08:00 80 03/03/18 07:22 99 20 80 03/03/18 07:00 99.2 98 22 109/58 (75) 94 99.2 98 03/03/18 06:05 110 110/52 03/03/18 06:00 100.3 100 20 104/55 (71) 96 100.3 100 03/03/18 05:43 100.3 03/03/18 05:13 101.3 03/03/18 05:00 101.3 112 20 118/70 (86) 96 101.3 112 03/03/18 04:45 113 18 80 03/03/18 04:00 Mechanical Ventilator 03/03/18 04:00 112 7/18/18 04:00 100.0 112 20 120/66 (84) 96 100.0 112 18/18 04:00 80 718/18 03:00 102 17 116/56 (76) 95 93 7/18/18 02:53 101 21 80 7/18/18 02:00 92 17 102/50 (67) 97 93 718/18 01:00 93 16 103/63 (76) 97 93 18/18 00:40 93 16 80 718/18 00:00 70 718/18 00:00 98.0 106 23 146/83 (104) 90 98.0 106 18/18 00:00 95 1818 00:00 80 18 00:00 Mechanical Ventilator 03/02/18 23:21 107 18 55 717/18 23:00 80 18 23:00 106 23 143/78 (99) 90 106 18 22:00 105 23 143/78 (99) 90 105 18 21:38 105 162/87 03/02/18 21:00 91 22 136/85 (102) 93 92 03/02/18 20:51 104 22 55 17/18 20:00 70 18 20:00 Mechanical Ventilator 03/02/18 20:00 99.0 91 25 162/87 (112) 91 99.0 91 18 20:00 92 18 20:00 55 17/18 19:03 93 25 55 17/18 19:00 97 132/69 (90) 1718 18:00 87 132/69 (90) 17/18 17:00 79 95/55 (68) 03/02/18 16:43 89 18 55 17/18 16:32 101.4 17/18 16:00 70 03/02/18 16:00 101.4 21 101/64 (76) 97 101.4 17/18 16:00 92 17/18 16:00 Mechanical Ventilator 03/02/18 15:00 98 21 129/68 (88) 97 18 14:40 97 16 55 17/18 14:19 88 132/83 17/18 14:00 88 19 132/83 (99) 98 03/02/18 13:03 100 20 60 03/02/18 13:00 96 20 127/67 (87) 98 03/02/18 12:00 70 03/02/18 12:00 98.9 87 19 120/65 (83) 100 98.9 03/02/18 12:00 92 03/02/18 12:00 Mechanical Ventilator General Appearance: no apparent distress, on vent EENT: PERRL/EOMI Neck: non-tender Rhythm: NSR Cardiovascular: normal peripheral pulses Respiratory/Chest: lungs clear Abdomen: normal bowel sounds Extremities: normal range of motion Neurologic: no pronator, abnormal CN, motor weakness, sensory deficit, disoriented, unresponsiveness Intake and Output 03/02/18 03/03/18 19:00 07:00 Intake Total 925.0 ml 630 ml Output Total 940 ml 1160 ml Balance -15.0 ml -530 ml Free Water 90 ml IV Total 385.0 ml Tube Feeding 540 ml 540 ml Output Urine Total 940 ml 1160 ml # Bowel Movements 1 3 Laboratory Tests Test 03/03/18 05:49 White Blood Count 19.1 K/UL (4.8-10.8) H Red Blood Count 4.73 M/UL (4.20-5.40) Hemoglobin 13.0 G/DL (12.0-16.0) Hematocrit 41.8 % (37.0-47.0) Mean Corpuscular Volume 88 FL (80-99) Mean Corpuscular Hemoglobin 27.5 PG (27.0-31.0) Mean Corpuscular Hemoglobin Concent 31.2 G/DL (32.0-36.0) L Red Cell Distribution Width 16.3 % (11.6-14.8) H Platelet Count 538 K/UL (150-450) H Mean Platelet Volume 7.6 FL (6.5-10.1) Neutrophils (%) (Auto) % (45.0-75.0) Lymphocytes (%) (Auto) % (20.0-45.0) Monocytes (%) (Auto) % (1.0-10.0) Eosinophils (%) (Auto) % (0.0-3.0) Basophils (%) (Auto) % (0.0-2.0) Differential Total Cells Counted 100 Neutrophils % (Manual) 92 % (45-75) H Lymphocytes % (Manual) 4 % (20-45) L Monocytes % (Manual) 3 % (1-10) Eosinophils % (Manual) 0 % (0-3) Basophils % (Manual) 0 % (0-2) Band Neutrophils 1 % (0-8) Platelet Estimate Increased H Platelet Morphology Normal Anisocytosis 1+ Stomatocytes 1+ Sodium Level 151 MMOL/L (136-145) H Potassium Level 3.7 MMOL/L (3.5-5.1) Chloride Level 106 MMOL/L (98-107) Carbon Dioxide Level 41 MMOL/L (21-32) *H Anion Gap 4 mmol/L (5-15) L Blood Urea Nitrogen 44 mg/dL (7-18) H Creatinine 0.8 MG/DL (0.55-1.30) Estimat Glomerular Filtration Rate mL/min (>60) Glucose Level 200 MG/DL (74-106) H Calcium Level 8.8 MG/DL (8.5-10.1) Maxx Ureña M.D. Mar 03, 2018 11:35
--- NOTE | 2018-03-03 14:37 | Infectious Diseases Prog Note ---
Assessment/Plan Problems: (1) Leukocytosis Assessment & Plan: suspect dehydration related, and over diuresis related. blood culture was ordered to rule out sepsis , continue antibiotics , and tylenol as needed . stop lasix , encourage free water replacement (2) HCAP (healthcare-associated pneumonia) Assessment & Plan: S/P intubation due to worsening respiratory failure . sputum culture grew normal anjel so far , on meropenem empiric coverage for now , will repeat CXR for follow up . pulmonary is following. WBC went up again suspect due to dehydration . will stop vancomycin (3) Sacral wound Assessment & Plan: colonized with ESBL producing E coli , klebsiella pneumonia and providenciae stuartii . continue local wound care and dressing changes as per hospital protocol . was evaluated by general surgery. already on meropenem (4) Acute respiratory failure Assessment & Plan: now chronic and ventilator dependant , pulmonary is following, monitor CXR and ABG . she may need tracheostomy (5) Low grade fever Assessment & Plan: on meropenem , sputum culture showed normal anjel, repeated blood culture is pending . repeated CXR showed improvement in her aeration . continue tylenol as needed Subjective ROS Limited/Unobtainable: Yes Allergies: Coded Allergies: No Known Allergies (Verified , 03/10/07) Subjective she is still intubated on mechanical ventilation, in ICU, not alert , had fever , no chills , mild diarrhea Objective Vital Signs Last 24 Hour Vital Signs Date Time Temp Pulse Resp B/P (MAP) Pulse Ox O2 Delivery O2 Flow Rate FiO2 03/03/18 14:27 84 123/71 03/03/18 14:00 83 17 99/56 (70) 95 83 03/03/18 13:00 85 20 80 03/03/18 13:00 85 17 104/63 (77) 95 85 03/03/18 12:00 86 03/03/18 12:00 Mechanical Ventilator 03/03/18 12:00 80 03/03/18 12:00 83 23 131/69 (89) 100 83 03/03/18 11:15 85 22 80 03/03/18 11:00 98.9 84 18 128/91 (103) 96 98.9 84 03/03/18 10:00 79 18 111/59 (76) 98 79 03/03/18 09:22 89 20 80 03/03/18 09:00 84 19 95/52 (66) 97 84 7/18/18 08:38 92 7/18/18 08:00 Mechanical Ventilator 1818 08:00 95 71818 08:00 104 16 108/56 (73) 97 98 7/18/18 08:00 80 7/18/18 07:22 99 20 80 7/18/18 07:00 99.2 98 22 109/58 (75) 94 99.2 98 1818 06:05 110 110/52 718/18 06:00 100.3 100 20 104/55 (71) 96 100.3 100 18/18 05:43 100.3 18/18 05:13 101.3 1818 05:00 101.3 112 20 118/70 (86) 96 101.3 112 18 04:45 113 18 80 718 04:00 Mechanical Ventilator 03/03/18 04:00 112 03/03/18 04:00 100.0 112 20 120/66 (84) 96 100.0 112 18 04:00 80 718/18 03:00 102 17 116/56 (76) 95 93 7/18/18 02:53 101 21 80 718/18 02:00 92 17 102/50 (67) 97 93 18/18 01:00 93 16 103/63 (76) 97 93 718/18 00:40 93 16 80 718/18 00:00 70 718/18 00:00 98.0 106 23 146/83 (104) 90 98.0 106 1818 00:00 95 1818 00:00 80 18/18 00:00 Mechanical Ventilator 03/02/18 23:21 107 18 55 717/18 23:00 80 18 23:00 106 23 143/78 (99) 90 106 1718 22:00 105 23 143/78 (99) 90 105 /17/18 21:38 105 162/87 03/02/18 21:00 91 22 136/85 (102) 93 92 17/18 20:51 104 22 55 17/18 20:00 70 17/18 20:00 Mechanical Ventilator 7/17/18 20:00 99.0 91 25 162/87 (112) 91 99.0 91 03/02/18 20:00 92 03/02/18 20:00 55 03/02/18 19:03 93 25 55 03/02/18 19:00 97 132/69 (90) 03/02/18 18:00 87 132/69 (90) 03/02/18 17:00 79 95/55 (68) 03/02/18 16:43 89 18 55 03/02/18 16:32 101.4 03/02/18 16:00 70 03/02/18 16:00 101.4 21 101/64 (76) 97 101.4 03/02/18 16:00 92 03/02/18 16:00 Mechanical Ventilator 03/02/18 15:00 98 21 129/68 (88) 97 03/02/18 14:40 97 16 55 Height (Feet): 4 Height (Inches): 0.00 Weight (Pounds): 98 General Appearance: WD/WN, no acute distress HEENT: normocephalic, atraumatic, anicteric, mucous membranes moist, PERRL, supple, no JVD Respiratory/Chest: chest wall non-tender, no respiratory distress, no accessory muscle use, decreased breath sounds, expiratory wheezing Cardiovascular: normal peripheral pulses, normal rate, regular rhythm, no gallop/murmur, no JVD Abdomen: normal bowel sounds, soft, non tender, no organomegaly, non distended , no mass Extremities: no cyanosis, no clubbing Skin: no rash, no lesions, ulcers Neurologic/Psychiatric: unresponsiveness Lymphatic: no neck adenopathy, no groin adenopathy Musculoskeletal: normal muscle bulk, no effusion Laboratory Tests Test 03/03/18 05:49 White Blood Count 19.1 K/UL (4.8-10.8) H Red Blood Count 4.73 M/UL (4.20-5.40) Hemoglobin 13.0 G/DL (12.0-16.0) Hematocrit 41.8 % (37.0-47.0) Mean Corpuscular Volume 88 FL (80-99) Mean Corpuscular Hemoglobin 27.5 PG (27.0-31.0) Mean Corpuscular Hemoglobin Concent 31.2 G/DL (32.0-36.0) L Red Cell Distribution Width 16.3 % (11.6-14.8) H Platelet Count 538 K/UL (150-450) H Mean Platelet Volume 7.6 FL (6.5-10.1) Neutrophils (%) (Auto) % (45.0-75.0) Lymphocytes (%) (Auto) % (20.0-45.0) Monocytes (%) (Auto) % (1.0-10.0) Eosinophils (%) (Auto) % (0.0-3.0) Basophils (%) (Auto) % (0.0-2.0) Differential Total Cells Counted 100 Neutrophils % (Manual) 92 % (45-75) H Lymphocytes % (Manual) 4 % (20-45) L Monocytes % (Manual) 3 % (1-10) Eosinophils % (Manual) 0 % (0-3) Basophils % (Manual) 0 % (0-2) Band Neutrophils 1 % (0-8) Platelet Estimate Increased H Platelet Morphology Normal Anisocytosis 1+ Stomatocytes 1+ Sodium Level 151 MMOL/L (136-145) H Potassium Level 3.7 MMOL/L (3.5-5.1) Chloride Level 106 MMOL/L (98-107) Carbon Dioxide Level 41 MMOL/L (21-32) *H Anion Gap 4 mmol/L (5-15) L Blood Urea Nitrogen 44 mg/dL (7-18) H Creatinine 0.8 MG/DL (0.55-1.30) Estimat Glomerular Filtration Rate mL/min (>60) Glucose Level 200 MG/DL (74-106) H Calcium Level 8.8 MG/DL (8.5-10.1) Current Medications Medications (Trade) Dose Ordered Sig/Ros[place] Route PRN Reason Start Time Stop Time Status Last Admin Dose Admin Acetaminophen (Tylenol) 650 mg Q4H PRN GT Mild Pain/Temp > 100.5 02/22/18 08:00 03/10/18 15:59 03/03/18 05:13 Ascorbic Acid (Vitamin C) 500 mg DAILY GT 02/22/18 09:00 03/07/18 08:59 03/03/18 08:38 Clonidine HCl (Catapres Tab) 0.1 mg Q8H PRN GT SBP >160 02/22/18 09:00 03/09/18 16:59 Dextrose (Dextrose 50%) 25 ml STAT PRN IV Hypoglycemia 02/22/18 16:00 03/11/18 15:59 Dextrose (Dextrose 50%) 50 ml STAT PRN IV Hypoglycemia 02/22/18 16:00 03/11/18 15:59 Digoxin (Lanoxin) 0.125 mg DAILY GT 02/22/18 09:00 03/07/18 08:59 03/03/18 08:38 Diltiazem HCl (Cardizem) 90 mg EVERY 8 HOURS ORAL 02/26/18 22:00 03/12/18 21:59 03/03/18 14:27 Enoxaparin Sodium (Lovenox) 30 mg Q24H SUBQ 02/22/18 09:00 03/07/18 08:59 03/03/18 08:39 Famotidine (Pepcid) 20 mg DAILY GT 02/22/18 09:00 03/10/18 08:59 03/03/18 08:38 Furosemide (Lasix) 40 mg DAILY IV 02/27/18 09:00 03/29/18 08:59 03/03/18 08:38 Insulin Aspart (NovoLOG) EVERY 6 HOURS SUBQ 02/22/18 06:30 03/07/18 06:29 03/03/18 11:56 Meropenem 1 gm/ Sodium Chloride 110 ml @ 220 mls/hr Q12HR@0600,1800 IVPB 02/22/18 18:00 03/04/18 17:59 03/03/18 06:04 Vancomycin HCl (Vanco rx to dose) 1 ea DAILY PRN MISC Per rx protocol 03/02/18 14:45 04/01/18 14:44 Vancomycin HCl 1 gm/Dextrose 275 ml @ 183.708 mls/hr Q24H IVPB 03/02/18 17:00 03/07/18 16:59 03/02/18 16:31 Dom Hoffman M.D. Mar 03, 2018 14:37
[2018-03-04] VITALS (26 sets, daily range): BP systolic 88–132; BP diastolic 22–92
[2018-03-04] MEDS: dilTIAZem HCl 90mg tab ORAL SCH ×3 (05:54→21:40)
[2018-03-04] MEDS: Meropenem 1 GM in NS 110 ML IVPB SCH ×2 (05:54→18:46)
[2018-03-04] MEDS: NovoLOG Insulin Flexpen SUBQ SCH ×4 (05:55→23:12)
--- NOTE | 2018-03-04 08:05 | Nephrology Progress Note ---
Assessment/Plan Assessment/Plan 1. Sepsis - Abx per ID 2. Sacral Decub- Gen Surg mgmt. 3. Hyernatremia- worsening, DCed lasix. Add D5W if sodium elevated today 4. Resp FL- Patient intubated - Pulm assistance with vent mgmt. - Conservatee for trach 5. AFib- digoxin + cardizem 6. DVT prophylaxis- lovenox Subjective Date patient seen: Mar 04, 2018 Time patient seen: 08:03 ROS Limited/Unobtainable: Yes Allergies: Coded Allergies: No Known Allergies (Verified , 03/10/07) Subjective Patient remains intubated. Objective Last 24 Hour Vital Signs Date Time Temp Pulse Resp B/P (MAP) Pulse Ox O2 Delivery O2 Flow Rate FiO2 03/04/18 07:00 93 16 110/65 (80) 96 03/04/18 06:33 89 16 60 03/04/18 06:00 97 16 95/37 (56) 98 03/04/18 05:54 98 104/70 03/04/18 05:06 94 19 60 03/04/18 05:00 89 18 104/70 (81) 93 03/04/18 04:00 Mechanical Ventilator 03/04/18 04:00 60 03/04/18 04:00 97 03/04/18 04:00 98.7 93 17 132/74 (93) 97 98.7 03/04/18 03:15 91 16 60 03/04/18 03:00 92 17 95/74 (81) 96 03/04/18 02:00 88 17 116/73 (87) 95 03/04/18 01:19 87 17 60 03/04/18 01:00 89 18 113/85 (94) 96 03/04/18 00:19 Mechanical Ventilator 03/04/18 00:00 90 17 119/60 (79) 95 03/04/18 00:00 70 03/04/18 00:00 88 03/03/18 23:03 90 16 70 03/03/18 23:00 98.6 88 17 104/58 (73) 97 98.6 03/03/18 22:00 89 17 107/52 (70) 95 03/03/18 21:39 93 122/63 03/03/18 21:06 96 17 70 03/03/18 21:00 94 17 122/63 (82) 94 03/03/18 20:00 86 18 20:00 Mechanical Ventilator 03/03/18 20:00 98.7 91 20 133/80 (97) 96 98.7 18 20:00 70 18 19:17 88 17 70 03/03/18 19:00 89 16 123/65 (84) 96 89 03/03/18 18:00 85 18 131/81 (98) 94 85 03/03/18 17:00 99.1 85 23 140/66 (90) 93 99.1 85 03/03/18 16:38 78 22 70 03/03/18 16:00 83 03/03/18 16:00 Mechanical Ventilator 03/03/18 16:00 89 20 119/57 (77) 94 89 03/03/18 15:02 83 22 70 03/03/18 15:00 84 20 106/61 (76) 95 84 03/03/18 14:27 84 123/71 03/03/18 14:00 83 17 99/56 (70) 95 83 03/03/18 14:00 70 03/03/18 13:00 85 20 80 03/03/18 13:00 85 17 104/63 (77) 95 85 03/03/18 12:00 86 03/03/18 12:00 Mechanical Ventilator 03/03/18 12:00 80 03/03/18 12:00 83 23 131/69 (89) 100 83 03/03/18 11:15 85 22 80 03/03/18 11:00 98.9 84 18 128/91 (103) 96 98.9 84 03/03/18 10:00 79 18 111/59 (76) 98 79 18 09:22 89 20 80 03/03/18 09:00 84 19 95/52 (66) 97 84 03/03/18 08:38 92 Intake and Output 03/03/18 03/04/18 19:00 07:00 Intake Total 750 ml 600 ml Output Total 920 ml 695 ml Balance -170 ml -95 ml Free Water 50 ml IV Total 110 ml Tube Feeding 540 ml 540 ml Other 50 ml 60 ml Output Urine Total 920 ml 695 ml # Bowel Movements 2 4 Height (Feet): 4 Height (Inches): 0.00 Weight (Pounds): 83 General Appearance: WD/WN, no apparent distress EENT: PERRL/EOMI Neck: non-tender, normal alignment Cardiovascular: normal peripheral pulses, normal rate Respiratory/Chest: lungs clear, normal breath sounds Abdomen: non tender, soft Edema: no edema noted Arm (L), no edema noted Arm (R), no edema noted Leg (L), no edema noted Leg (R), no edema noted Pedal (L), no edema noted Pedal (R), no edema noted Generalized Jorge Graf M.D. Mar 04, 2018 08:05
[2018-03-04 08:46] LABS: ANION GAP 0 mmol/L (5-15); BLOOD UREA NITROGEN 62 mg/dL (7-18); CALCIUM 8.8 MG/DL (8.5-10.1); CHLORIDE 112 MMOL/L (98-107); CREATININE 0.8 MG/DL (0.55-1.30); POTASSIUM 3.5 MMOL/L (3.5-5.1); SODIUM 155 MMOL/L (136-145)
[2018-03-04 08:50] LABS: CARBON DIOXIDE 43 MMOL/L (21-32)
[2018-03-04] MEDS: Ascorbic Acid 500mg tab GT SCH (09:32)
[2018-03-04] MEDS: Digoxin 0.125mg tab GT SCH (09:32)
[2018-03-04] MEDS: Enoxaparin 30mg Inj SUBQ SCH (09:37)
--- NOTE | 2018-03-04 09:37 | Pulmonology Progress Note ---
Assessment/Plan Assessment/Plan IMPRESSION: 1. Bilateral pneumonia. Improved. 2. Respiratory failure; intubated; remains hypoxemic with 100% FiO2 3. Hypertension. 4. Diabetes mellitus. 5. Dehydration, hypernatremia 6. Tardive dyskinesia 7. Anemia DISCUSSION: Discussed with PMD Will need trach Continue vent Unable to wean Will request bioethics eval to allow 2 physician consent for trach as there is risk of grave injury if trach not performed soon Subjective Interval Events: FiO2 now 60% Constitutional: Reports: no symptoms HEENT: Repors: no symptoms Respiratory: Reports: no symptoms Cardiovascular: Reports: no symptoms Gastrointestinal/Abdominal: Reports: no symptoms Genitourinary: Reports: no symptoms Neurologic: Reports: no symptoms Allergies: Coded Allergies: No Known Allergies (Verified , 03/10/07) Objective Last 24 Hour Vital Signs Date Time Temp Pulse Resp B/P (MAP) Pulse Ox O2 Delivery O2 Flow Rate FiO2 03/04/18 08:52 83 15 60 03/04/18 08:00 88 03/04/18 08:00 60 03/04/18 08:00 99.5 84 17 103/71 (82) 97 99.5 03/04/18 08:00 Mechanical Ventilator 03/04/18 07:00 93 16 110/65 (80) 96 03/04/18 06:33 89 16 60 03/04/18 06:00 97 16 95/37 (56) 98 03/04/18 05:54 98 104/70 03/04/18 05:06 94 19 60 03/04/18 05:00 89 18 104/70 (81) 93 03/04/18 04:00 Mechanical Ventilator 03/04/18 04:00 60 03/04/18 04:00 97 03/04/18 04:00 98.7 93 17 132/74 (93) 97 98.7 03/04/18 03:15 91 16 60 03/04/18 03:00 92 17 95/74 (81) 96 03/04/18 02:00 88 17 116/73 (87) 95 03/04/18 01:19 87 17 60 03/04/18 01:00 89 18 113/85 (94) 96 03/04/18 00:19 Mechanical Ventilator 03/04/18 00:00 90 17 119/60 (79) 95 03/04/18 00:00 70 03/04/18 00:00 88 03/03/18 23:03 90 16 70 03/03/18 23:00 98.6 88 17 104/58 (73) 97 98.6 03/03/18 22:00 89 17 107/52 (70) 95 18 21:39 93 122/63 18 21:06 96 17 70 03/03/18 21:00 94 17 122/63 (82) 94 03/03/18 20:00 86 03/03/18 20:00 Mechanical Ventilator 03/03/18 20:00 98.7 91 20 133/80 (97) 96 98.7 03/03/18 20:00 70 03/03/18 19:17 88 17 70 03/03/18 19:00 89 16 123/65 (84) 96 89 03/03/18 18:00 85 18 131/81 (98) 94 85 03/03/18 17:00 99.1 85 23 140/66 (90) 93 99.1 85 03/03/18 16:38 78 22 70 03/03/18 16:00 83 03/03/18 16:00 Mechanical Ventilator 03/03/18 16:00 89 20 119/57 (77) 94 89 03/03/18 15:02 83 22 70 03/03/18 15:00 84 20 106/61 (76) 95 84 18 14:27 84 123/71 03/03/18 14:00 83 17 99/56 (70) 95 83 03/03/18 14:00 70 03/03/18 13:00 85 20 80 03/03/18 13:00 85 17 104/63 (77) 95 85 18 12:00 86 03/03/18 12:00 Mechanical Ventilator 03/03/18 12:00 80 03/03/18 12:00 83 23 131/69 (89) 100 83 03/03/18 11:15 85 22 80 03/03/18 11:00 98.9 84 18 128/91 (103) 96 98.9 84 03/03/18 10:00 79 18 111/59 (76) 98 79 Intake and Output 03/03/18 03/04/18 19:00 07:00 Intake Total 750 ml 600 ml Output Total 920 ml 695 ml Balance -170 ml -95 ml Free Water 50 ml IV Total 110 ml Tube Feeding 540 ml 540 ml Other 50 ml 60 ml Output Urine Total 920 ml 695 ml # Bowel Movements 2 4 General Appearance: no acute distress HEENT: normocephalic Respiratory/Chest: chest wall non-tender, lungs clear Cardiovascular: normal peripheral pulses, normal rate Abdomen: normal bowel sounds, soft, non tender Microbiology Date/Time Source Procedure Growth Status 03/02/18 16:30 Blood Blood Culture - Preliminary NO GROWTH AFTER 24 HOURS Resulted 03/02/18 16:15 Blood Blood Culture - Preliminary NO GROWTH AFTER 24 HOURS Resulted Laboratory Tests 03/04/18 08:19: Sodium Level 155H, Potassium Level 3.5, Chloride Level 112H, Carbon Dioxide Level 43*H, Anion Gap 0L, Blood Urea Nitrogen 62H, Creatinine 0.8, Estimat Glomerular Filtration Rate , Glucose Level 143H, Calcium Level 8.8 Current Medications Medications (Trade) Dose Ordered Sig/Rosetta Route PRN Reason Start Time Stop Time Status Last Admin Dose Admin Acetaminophen (Tylenol) 650 mg Q4H PRN GT Mild Pain/Temp > 100.5 02/22/18 08:00 03/10/18 15:59 03/03/18 05:13 Ascorbic Acid (Vitamin C) 500 mg DAILY GT 02/22/18 09:00 03/07/18 08:59 03/03/18 08:38 Clonidine HCl (Catapres Tab) 0.1 mg Q8H PRN GT SBP >160 02/22/18 09:00 03/09/18 16:59 Dextrose 1,000 ml @ 75 mls/hr [id number] IV 03/04/18 09:00 04/03/18 08:59 Dextrose (Dextrose 50%) 25 ml STAT PRN IV Hypoglycemia 02/22/18 16:00 03/11/18 15:59 Dextrose (Dextrose 50%) 50 ml STAT PRN IV Hypoglycemia 02/22/18 16:00 03/11/18 15:59 Digoxin (Lanoxin) 0.125 mg DAILY GT 02/22/18 09:00 03/07/18 08:59 03/03/18 08:38 Diltiazem HCl (Cardizem) 90 mg EVERY 8 HOURS ORAL 02/26/18 22:00 03/12/18 21:59 03/04/18 05:54 Enoxaparin Sodium (Lovenox) 30 mg Q24H SUBQ 02/22/18 09:00 03/07/18 08:59 03/03/18 08:39 Famotidine (Pepcid) 20 mg DAILY GT 02/22/18 09:00 03/10/18 08:59 03/03/18 08:38 Insulin Aspart (NovoLOG) EVERY 6 HOURS SUBQ 02/22/18 06:30 03/07/18 06:29 03/04/18 05:55 Meropenem 1 gm/ Sodium Chloride 110 ml @ 220 mls/hr Q12HR@0600,1800 IVPB 02/22/18 18:00 03/09/18 17:59 03/04/18 05:54 Jan Sawant MD Mar 04, 2018 09:37
--- NOTE | 2018-03-04 13:19 | Cardiology Progress Note ---
Assessment/Plan Status: stable Assessment/Plan Assessment/Plan Assessment/Plan 1. Paroxysmal atrial fibrillation. In SR on digoxin 0.125 mg daily and Cardizem 30 tid. Off anticoagulation. Echo Nl EF. 2. Hypertension. On Cardizem 30 tid 3. Respiratory failure, on Vent now in ICU 4. Diabetes, on insulin. 5. Dementia. 6. Dysphagia, status post PEG 7. Sacral decubitus stage III. FU by Dr. Austin. 8. CVA with aphasia and contractures. 9. Trach for prolonged intubation Subjective Cardiovascular: Reports: no symptoms Respiratory: Reports: no symptoms Gastrointestinal/Abdominal: Reports: no symptoms Genitourinary: Reports: no symptoms Subjective Pt in no acute distress. Opens eyes spontaneously and withdraws to pain. Non verbal. Remains orally intubated, with fiO2 of 50%, saturating 96-98%. Vent settings A/C 15, Vt 450, FI02 80%, PEEP +5 Objective Last 24 Hour Vital Signs Date Time Temp Pulse Resp B/P (MAP) Pulse Ox O2 Delivery O2 Flow Rate FiO2 03/04/18 12:39 91 18 40 03/04/18 11:17 89 20 40 03/04/18 11:00 89 20 100/53 (69) 96 03/04/18 10:00 82 16 96/54 (68) 97 03/04/18 09:32 83 03/04/18 09:00 84 17 129/92 (104) 97 03/04/18 08:52 83 15 60 03/04/18 08:00 88 03/04/18 08:00 60 03/04/18 08:00 99.5 84 17 103/71 (82) 97 99.5 03/04/18 08:00 Mechanical Ventilator 03/04/18 07:00 93 16 110/65 (80) 96 03/04/18 06:33 89 16 60 03/04/18 06:00 97 16 95/37 (56) 98 03/04/18 05:54 98 104/70 03/04/18 05:06 94 19 60 03/04/18 05:00 89 18 104/70 (81) 93 03/04/18 04:00 Mechanical Ventilator 03/04/18 04:00 60 03/04/18 04:00 97 03/04/18 04:00 98.7 93 17 132/74 (93) 97 98.7 7/19/18 03:15 91 16 60 18 03:00 92 17 95/74 (81) 96 18 02:00 88 17 116/73 (87) 95 18 01:19 87 17 60 18 01:00 89 18 113/85 (94) 96 03/04/18 00:19 Mechanical Ventilator 03/04/18 00:00 90 17 119/60 (79) 95 03/04/18 00:00 70 03/04/18 00:00 88 18 23:03 90 16 70 03/03/18 23:00 98.6 88 17 104/58 (73) 97 98.6 03/03/18 22:00 89 17 107/52 (70) 95 18 21:39 93 122/63 18 21:06 96 17 70 18 21:00 94 17 122/63 (82) 94 03/03/18 20:00 86 03/03/18 20:00 Mechanical Ventilator 03/03/18 20:00 98.7 91 20 133/80 (97) 96 98.7 18 20:00 70 18 19:17 88 17 70 18 19:00 89 16 123/65 (84) 96 89 18 18:00 85 18 131/81 (98) 94 85 18 17:00 99.1 85 23 140/66 (90) 93 99.1 85 18 16:38 78 22 70 18 16:00 83 18 16:00 Mechanical Ventilator 18 16:00 89 20 119/57 (77) 94 89 18 15:02 83 22 70 1818 15:00 84 20 106/61 (76) 95 84 18/18 14:27 84 123/71 1818 14:00 83 17 99/56 (70) 95 83 1818 14:00 70 General Appearance: lethargic, on vent EENT: PERRL/EOMI Neck: non-tender Rhythm: NSR Cardiovascular: normal peripheral pulses Respiratory/Chest: chest wall non-tender Abdomen: normal bowel sounds Extremities: normal range of motion 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 Intake and Output 03/03/18 03/04/18 19:00 07:00 Intake Total 750 ml 600 ml Output Total 920 ml 695 ml Balance -170 ml -95 ml Free Water 50 ml IV Total 110 ml Tube Feeding 540 ml 540 ml Other 50 ml 60 ml Output Urine Total 920 ml 695 ml # Bowel Movements 2 4 Laboratory Tests Test 03/04/18 08:19 Sodium Level 155 MMOL/L (136-145) H Potassium Level 3.5 MMOL/L (3.5-5.1) Chloride Level 112 MMOL/L (98-107) H Carbon Dioxide Level 43 MMOL/L (21-32) *H Anion Gap 0 mmol/L (5-15) L Blood Urea Nitrogen 62 mg/dL (-18) H Creatinine 0.8 MG/DL (0.55-1.30) Estimat Glomerular Filtration Rate mL/min (>60) Glucose Level 143 MG/DL (74-106) H Calcium Level 8.8 MG/DL (8.5-10.1) Microbiology Date/Time Source Procedure Growth Status 03/02/18 16:30 Blood Blood Culture - Preliminary NO GROWTH AFTER 24 HOURS Resulted 03/02/18 16:15 Blood Blood Culture - Preliminary NO GROWTH AFTER 24 HOURS Resulted Maxx Ureña M.D. Mar 04, 2018 13:19
--- NOTE | 2018-03-04 15:14 | Infectious Diseases Prog Note ---
Assessment/Plan Problems: (1) Leukocytosis Assessment & Plan: suspect dehydration related, and over diuresis related. blood culture is pending to rule out sepsis , continue meropenem for now , and tylenol as needed . encourage free water replacement (2) HCAP (healthcare-associated pneumonia) Assessment & Plan: S/P intubation due to worsening respiratory failure . sputum culture grew normal anjel so far , on meropenem empiric coverage for now , will repeat CXR for follow up . pulmonary is following. 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 continue local wound care and dressing changes as per hospital protocol . was evaluated by general surgery. already on meropenem (4) Acute respiratory failure Assessment & Plan: now chronic and ventilator dependant , pulmonary is following, monitor CXR and ABG . she may need tracheostomy (5) Low grade fever Assessment & Plan: rule out urine infection , VS bacteremia , already on meropenem , repeated blood culture is pending . repeated CXR showed improvement in her aeration . will change sarkar catheter , and order sputum culture continue tylenol as needed Subjective ROS Limited/Unobtainable: Yes Allergies: Coded Allergies: No Known Allergies (Verified , 03/10/07) Subjective she is still intubated on mechanical ventilation, in ICU, not alert , had fever , no chills , one bowel movement, today . sarkar catheter is cloudy Objective Vital Signs Last 24 Hour Vital Signs Date Time Temp Pulse Resp B/P (MAP) Pulse Ox O2 Delivery O2 Flow Rate FiO2 03/04/18 14:41 90 16 40 03/04/18 14:00 95 19 114/76 (89) 91 03/04/18 13:20 87 124/66 03/04/18 13:00 90 18 124/66 (85) 95 03/04/18 12:39 91 18 40 03/04/18 12:00 99.6 86 20 104/63 (77) 95 99.6 03/04/18 12:00 60 03/04/18 12:00 89 03/04/18 12:00 Mechanical Ventilator 03/04/18 11:17 89 20 40 03/04/18 11:00 89 20 100/53 (69) 96 03/04/18 10:00 82 16 96/54 (68) 97 7/19/18 09:32 83 18 09:00 84 17 129/92 (104) 97 18 08:52 83 15 60 03/04/18 08:00 88 18 08:00 60 03/04/18 08:00 99.5 84 17 103/71 (82) 97 99.5 03/04/18 08:00 Mechanical Ventilator 03/04/18 07:00 93 16 110/65 (80) 96 03/04/18 06:33 89 16 60 03/04/18 06:00 97 16 95/37 (56) 98 03/04/18 05:54 98 104/70 03/04/18 05:06 94 19 60 03/04/18 05:00 89 18 104/70 (81) 93 03/04/18 04:00 Mechanical Ventilator 03/04/18 04:00 60 03/04/18 04:00 97 03/04/18 04:00 98.7 93 17 132/74 (93) 97 98.7 03/04/18 03:15 91 16 60 03/04/18 03:00 92 17 95/74 (81) 96 03/04/18 02:00 88 17 116/73 (87) 95 03/04/18 01:19 87 17 60 03/04/18 01:00 89 18 113/85 (94) 96 03/04/18 00:19 Mechanical Ventilator 03/04/18 00:00 90 17 119/60 (79) 95 03/04/18 00:00 70 03/04/18 00:00 88 18 23:03 90 16 70 03/03/18 23:00 98.6 88 17 104/58 (73) 97 98.6 18 22:00 89 17 107/52 (70) 95 1818 21:39 93 122/63 1818 21:06 96 17 70 1818 21:00 94 17 122/63 (82) 94 18 20:00 86 18 20:00 Mechanical Ventilator 03/03/18 20:00 98.7 91 20 133/80 (97) 96 98.7 18 20:00 70 18 19:17 88 17 70 18 19:00 89 16 123/65 (84) 96 89 03/03/18 18:00 85 18 131/81 (98) 94 85 03/03/18 17:00 99.1 85 23 140/66 (90) 93 99.1 85 03/03/18 16:38 78 22 70 03/03/18 16:00 83 03/03/18 16:00 Mechanical Ventilator 03/03/18 16:00 89 20 119/57 (77) 94 89 Height (Feet): 4 Height (Inches): 0.00 Weight (Pounds): 83 General Appearance: WD/WN, no acute distress, cachetic HEENT: normocephalic, atraumatic, anicteric, mucous membranes moist, supple, no JVD Respiratory/Chest: chest wall non-tender, lungs clear, normal breath sounds, no respiratory distress, no accessory muscle use Cardiovascular: normal peripheral pulses, normal rate, regular rhythm, no gallop/murmur, no JVD Abdomen: normal bowel sounds, soft, non tender, no organomegaly, non distended , no mass, no scars Genitourinary: normal external genitalia Extremities: no cyanosis, no clubbing Skin: no rash, no lesions, ulcers - sacral and hip pressure wounds Neurologic/Psychiatric: unresponsiveness Lymphatic: no neck adenopathy, no groin adenopathy Microbiology Date/Time Source Procedure Growth Status 03/02/18 16:30 Blood Blood Culture - Preliminary NO GROWTH AFTER 24 HOURS Resulted 03/02/18 16:15 Blood Blood Culture - Preliminary NO GROWTH AFTER 24 HOURS Resulted Laboratory Tests Test 03/04/18 08:19 Sodium Level 155 MMOL/L (136-145) H Potassium Level 3.5 MMOL/L (3.5-5.1) Chloride Level 112 MMOL/L (98-107) H Carbon Dioxide Level 43 MMOL/L (21-32) *H Anion Gap 0 mmol/L (5-15) L Blood Urea Nitrogen 62 mg/dL (7-18) H Creatinine 0.8 MG/DL (0.55-1.30) Estimat Glomerular Filtration Rate mL/min (>60) Glucose Level 143 MG/DL (74-106) H Calcium Level 8.8 MG/DL (8.5-10.1) Current Medications Medications (Trade) Dose Ordered Sig/Rosetta Route PRN Reason Start Time Stop Time Status Last Admin Dose Admin Acetaminophen (Tylenol) 650 mg Q4H PRN GT Mild Pain/Temp > 100.5 02/22/18 08:00 03/10/18 15:59 03/03/18 05:13 Ascorbic Acid (Vitamin C) 500 mg DAILY GT 02/22/18 09:00 03/07/18 08:59 03/04/18 09:32 Clonidine HCl (Catapres Tab) 0.1 mg Q8H PRN GT SBP >160 02/22/18 09:00 03/09/18 16:59 Dextrose 1,000 ml @ 75 mls/hr [id number] IV 03/04/18 09:00 04/03/18 08:59 03/04/18 09:32 Dextrose (Dextrose 50%) 25 ml STAT PRN IV Hypoglycemia 02/22/18 16:00 03/11/18 15:59 Dextrose (Dextrose 50%) 50 ml STAT PRN IV Hypoglycemia 02/22/18 16:00 03/11/18 15:59 Digoxin (Lanoxin) 0.125 mg DAILY GT 02/22/18 09:00 03/07/18 08:59 03/04/18 09:32 Diltiazem HCl (Cardizem) 90 mg EVERY 8 HOURS ORAL 02/26/18 22:00 03/12/18 21:59 03/04/18 13:20 Enoxaparin Sodium (Lovenox) 30 mg Q24H SUBQ 02/22/18 09:00 03/07/18 08:59 03/04/18 09:37 Famotidine (Pepcid) 20 mg DAILY GT 02/22/18 09:00 03/10/18 08:59 03/04/18 09:32 Insulin Aspart (NovoLOG) EVERY 6 HOURS SUBQ 02/22/18 06:30 03/07/18 06:29 03/04/18 11:37 Meropenem 1 gm/ Sodium Chloride 110 ml @ 220 mls/hr Q12HR@0600,1800 IVPB 02/22/18 18:00 03/09/18 17:59 03/04/18 05:54 Dom Hoffman M.D. Mar 04, 2018 15:14
[2018-03-05] VITALS (24 sets, daily range): BP systolic 92–144; BP diastolic 51–83
[2018-03-05] MEDS: Meropenem 1 GM in NS 110 ML IVPB SCH ×2 (05:34→18:05)
[2018-03-05] MEDS: dilTIAZem HCl 90mg tab ORAL SCH ×3 (05:34→21:38)
[2018-03-05] MEDS: NovoLOG Insulin Flexpen SUBQ SCH ×4 (05:35→23:46)
[2018-03-05 05:57] LABS: BLOOD UREA NITROGEN 43 mg/dL (7-18); CALCIUM 8.5 MG/DL (8.5-10.1); CHLORIDE 109 MMOL/L (98-107); CREATININE 0.6 MG/DL (0.55-1.30); POTASSIUM 2.9 MMOL/L (3.5-5.1); SODIUM 150 MMOL/L (136-145)
[2018-03-05 05:58] LABS: ANION GAP 0 mmol/L (5-15); CARBON DIOXIDE 42 MMOL/L (21-32)
--- NOTE | 2018-03-05 08:33 | Nephrology Progress Note ---
Assessment/Plan Assessment/Plan 1. Sepsis - Abx per ID 2. Sacral Decub- Gen Surg mgmt. 3. Hyernatremia- D5W, Na down to 150 4. Resp FL- Patient intubated - patient requiring emergent trach as she has been intubated for a prolonged time and no clear possible of being extubated anytime soon 5. AFib- digoxin + cardizem 6. DVT prophylaxis- lovenox Place DC orders to [facility] for pulm weaning once trach placed Subjective Date patient seen: Mar 05, 2018 Time patient seen: 08:29 ROS Limited/Unobtainable: Yes Allergies: Coded Allergies: No Known Allergies (Verified , 03/10/07) Subjective Patient remains intubated awaiting trach Objective Last 24 Hour Vital Signs Date Time Temp Pulse Resp B/P (MAP) Pulse Ox O2 Delivery O2 Flow Rate FiO2 03/05/18 08:00 98.5 89 18 110/59 (76) 95 98.5 03/05/18 08:00 70 03/05/18 07:00 92 20 119/66 (83) 92 03/05/18 06:33 84 16 70 03/05/18 06:00 95 20 113/65 (81) 92 03/05/18 05:34 84 107/59 03/05/18 05:11 81 20 60 03/05/18 05:00 83 20 107/59 (75) 92 03/05/18 04:00 98.1 83 20 121/66 (84) 96 98.1 03/05/18 04:00 40 03/05/18 04:00 Mechanical Ventilator 03/05/18 04:00 68 03/05/18 03:21 72 16 40 03/05/18 03:00 67 15 92/51 (65) 95 03/05/18 02:00 67 16 111/64 (80) 96 03/05/18 01:30 68 15 40 03/05/18 01:00 69 16 97/52 (67) 95 03/05/18 00:00 77 03/05/18 00:00 Mechanical Ventilator 03/05/18 00:00 60 03/05/18 00:00 69 16 99/53 (68) 95 03/04/18 23:18 72 15 40 03/04/18 23:00 99.3 72 15 97/54 (68) 95 99.3 03/04/18 22:00 81 16 111/56 (74) 95 18 22:00 78 18 21:40 85 120/64 18 21:00 84 20 120/64 (82) 95 18 20:40 84 18 40 03/04/18 20:00 83 25 116/63 (80) 94 03/04/18 20:00 Mechanical Ventilator 03/04/18 20:00 60 03/04/18 19:30 80 15 40 03/04/18 19:00 83 31 128/61 (83) 95 03/04/18 18:00 85 20 119/65 (83) 95 03/04/18 17:00 87 24 122/65 (84) 95 03/04/18 16:44 92 16 40 03/04/18 16:00 Mechanical Ventilator 03/04/18 16:00 99.8 80 17 106/68 (81) 93 99.8 03/04/18 16:00 80 03/04/18 16:00 60 03/04/18 15:00 87 18 114/72 (86) 93 03/04/18 14:41 90 16 40 03/04/18 14:00 95 19 114/76 (89) 91 03/04/18 13:20 87 124/66 03/04/18 13:00 90 18 124/66 (85) 95 03/04/18 12:39 91 18 40 03/04/18 12:00 99.6 86 20 104/63 (77) 95 99.6 03/04/18 12:00 60 03/04/18 12:00 89 03/04/18 12:00 Mechanical Ventilator 03/04/18 11:17 89 20 40 03/04/18 11:00 89 20 100/53 (69) 96 03/04/18 10:00 82 16 96/54 (68) 97 03/04/18 09:32 83 03/04/18 09:00 84 17 129/92 (104) 97 03/04/18 08:52 83 15 60 Intake and Output 03/04/18 03/05/18 19:00 07:00 Intake Total 1582 ml 1610 ml Output Total 750 ml 785 ml Balance 832 ml 825 ml Free Water 300 ml IV Total 712 ml 1010 ml Tube Feeding 540 ml 540 ml Other 30 ml 60 ml Output Urine Total 750 ml 785 ml # Bowel Movements 3 2 Laboratory Tests 03/05/18 04:39: Sodium Level 150H, Potassium Level 2.9L, Chloride Level 109H, Carbon Dioxide Level 42*H, Anion Gap 0L, Blood Urea Nitrogen 43H, Creatinine 0.6, Estimat Glomerular Filtration Rate , Glucose Level 134H, Calcium Level 8.5 Height (Feet): 4 Height (Inches): 0.00 Weight (Pounds): 83 General Appearance: WD/WN, no apparent distress EENT: PERRL/EOMI, normal ENT inspection Neck: non-tender, normal alignment Cardiovascular: normal peripheral pulses, normal rate Respiratory/Chest: rhonchi - bilaterally Abdomen: normal bowel sounds, non tender Edema: no edema noted Arm (L), no edema noted Arm (R), no edema noted Leg (L), no edema noted Leg (R), no edema noted Pedal (L), no edema noted Pedal (R), no edema noted Generalized Jorge Graf M.D. Mar 05, 2018 08:33
--- NOTE | 2018-03-05 08:49 | Pulmonology Progress Note ---
Assessment/Plan Assessment/Plan IMPRESSION: 1. Bilateral pneumonia. Improved. 2. Respiratory failure; intubated; remains hypoxemic with 60% FiO2 3. Hypertension. 4. Diabetes mellitus. 5. Dehydration, hypernatremia 6. Tardive dyskinesia 7. Anemia DISCUSSION: Discussed with PMD Will need trach Continue vent Unable to wean Await bioethics eval to allow 2 physician consent for trach as there is risk of grave injury if trach not performed soon Subjective Interval Events: No change; remains intunated Constitutional: Reports: no symptoms HEENT: Repors: no symptoms Respiratory: Reports: no symptoms Cardiovascular: Reports: no symptoms Gastrointestinal/Abdominal: Reports: no symptoms Allergies: Coded Allergies: No Known Allergies (Verified , 03/10/07) Objective Last 24 Hour Vital Signs Date Time Temp Pulse Resp B/P (MAP) Pulse Ox O2 Delivery O2 Flow Rate FiO2 03/05/18 08:00 Mechanical Ventilator 03/05/18 08:00 98.5 89 18 110/59 (76) 95 98.5 03/05/18 08:00 86 03/05/18 08:00 70 03/05/18 07:00 92 20 119/66 (83) 92 03/05/18 06:33 84 16 70 03/05/18 06:00 95 20 113/65 (81) 92 03/05/18 05:34 84 107/59 03/05/18 05:11 81 20 60 03/05/18 05:00 83 20 107/59 (75) 92 03/05/18 04:00 98.1 83 20 121/66 (84) 96 98.1 03/05/18 04:00 40 03/05/18 04:00 Mechanical Ventilator 03/05/18 04:00 68 03/05/18 03:21 72 16 40 03/05/18 03:00 67 15 92/51 (65) 95 03/05/18 02:00 67 16 111/64 (80) 96 03/05/18 01:30 68 15 40 03/05/18 01:00 69 16 97/52 (67) 95 03/05/18 00:00 77 03/05/18 00:00 Mechanical Ventilator 03/05/18 00:00 60 03/05/18 00:00 69 16 99/53 (68) 95 03/04/18 23:18 72 15 40 7/19/18 23:00 99.3 72 15 97/54 (68) 95 99.3 03/04/18 22:00 81 16 111/56 (74) 95 18 22:00 78 18 21:40 85 120/64 18 21:00 84 20 120/64 (82) 95 18 20:40 84 18 40 03/04/18 20:00 83 25 116/63 (80) 94 03/04/18 20:00 Mechanical Ventilator 03/04/18 20:00 60 03/04/18 19:30 80 15 40 03/04/18 19:00 83 31 128/61 (83) 95 03/04/18 18:00 85 20 119/65 (83) 95 03/04/18 17:00 87 24 122/65 (84) 95 03/04/18 16:44 92 16 40 03/04/18 16:00 Mechanical Ventilator 03/04/18 16:00 99.8 80 17 106/68 (81) 93 99.8 03/04/18 16:00 80 18 16:00 60 03/04/18 15:00 87 18 114/72 (86) 93 18 14:41 90 16 40 03/04/18 14:00 95 19 114/76 (89) 91 18 13:20 87 124/66 18 13:00 90 18 124/66 (85) 95 18 12:39 91 18 40 03/04/18 12:00 99.6 86 20 104/63 (77) 95 99.6 03/04/18 12:00 60 18 12:00 89 03/04/18 12:00 Mechanical Ventilator 03/04/18 11:17 89 20 40 03/04/18 11:00 89 20 100/53 (69) 96 18 10:00 82 16 96/54 (68) 97 18 09:32 83 03/04/18 09:00 84 17 129/92 (104) 97 03/04/18 08:52 83 15 60 Intake and Output 03/04/18 03/05/18 19:00 07:00 Intake Total 1582 ml 1610 ml Output Total 750 ml 785 ml Balance 832 ml 825 ml Free Water 300 ml IV Total 712 ml 1010 ml Tube Feeding 540 ml 540 ml Other 30 ml 60 ml Output Urine Total 750 ml 785 ml # Bowel Movements 3 2 General Appearance: no acute distress HEENT: normocephalic Respiratory/Chest: chest wall non-tender, lungs clear Cardiovascular: normal peripheral pulses, normal rate Abdomen: normal bowel sounds Microbiology Date/Time Source Procedure Growth Status 03/02/18 16:30 Blood Blood Culture - Preliminary NO GROWTH AFTER 48 HOURS Resulted 03/02/18 16:15 Blood Blood Culture - Preliminary NO GROWTH AFTER 48 HOURS Resulted Laboratory Tests 03/05/18 04:39: Sodium Level 150H, Potassium Level 2.9L, Chloride Level 109H, Carbon Dioxide Level 42*H, Anion Gap 0L, Blood Urea Nitrogen 43H, Creatinine 0.6, Estimat Glomerular Filtration Rate , Glucose Level 134H, Calcium Level 8.5 Current Medications Medications (Trade) Dose Ordered Sig/Rosetta Route PRN Reason Start Time Stop Time Status Last Admin Dose Admin Acetaminophen (Tylenol) 650 mg Q4H PRN GT Mild Pain/Temp > 100.5 02/22/18 08:00 03/10/18 15:59 03/03/18 05:13 Artificial Tears (Akwa-Tears) 2 drop Q2HR PRN BOTH EYES Dry Eyes 03/04/18 19:30 04/03/18 19:29 Ascorbic Acid (Vitamin C) 500 mg DAILY GT 02/22/18 09:00 03/07/18 08:59 03/04/18 09:32 Clonidine HCl (Catapres Tab) 0.1 mg Q8H PRN GT SBP >160 02/22/18 09:00 03/09/18 16:59 Dextrose 1,000 ml @ 75 mls/hr [id number] IV 03/04/18 09:00 04/03/18 08:59 03/04/18 21:40 Dextrose (Dextrose 50%) 25 ml STAT PRN IV Hypoglycemia 02/22/18 16:00 03/11/18 15:59 Dextrose (Dextrose 50%) 50 ml STAT PRN IV Hypoglycemia 02/22/18 16:00 03/11/18 15:59 Digoxin (Lanoxin) 0.125 mg DAILY GT 02/22/18 09:00 03/07/18 08:59 03/04/18 09:32 Diltiazem HCl (Cardizem) 90 mg EVERY 8 HOURS ORAL 02/26/18 22:00 03/12/18 21:59 03/05/18 05:34 Enoxaparin Sodium (Lovenox) 30 mg Q24H SUBQ 02/22/18 09:00 03/07/18 08:59 03/04/18 09:37 Famotidine (Pepcid) 20 mg DAILY GT 02/22/18 09:00 03/10/18 08:59 03/04/18 09:32 Insulin Aspart (NovoLOG) EVERY 6 HOURS SUBQ 02/22/18 06:30 03/07/18 06:29 03/05/18 05:35 Meropenem 1 gm/ Sodium Chloride 110 ml @ 220 mls/hr Q12HR@0600,1800 IVPB 02/22/18 18:00 03/09/18 17:59 03/05/18 05:34 Potassium Chloride 100 ml @ 50 mls/hr ONCE ONCE IVPB 03/05/18 08:30 03/05/18 10:29 UNV Potassium Chloride 100 ml @ 50 mls/hr ONCE ONCE IVPB 03/05/18 08:30 03/05/18 10:29 UNV Jan Sawant MD Mar 05, 2018 08:49
[2018-03-05] MEDS: Digoxin 0.125mg tab GT SCH (08:51)
[2018-03-05] MEDS: Ascorbic Acid 500mg tab GT SCH (08:52)
[2018-03-05] MEDS: Enoxaparin 30mg Inj SUBQ SCH (08:55)
[2018-03-05] MEDS ORDERED: NS 500ML ONE (09:49)
[2018-03-05] MEDS ORDERED: Tubing IV Secondary IV ONE ×3 (09:49→10:29)
[2018-03-05] MEDS ORDERED: NS 275ml ONE ×2 (10:10→10:29)
--- NOTE | 2018-03-05 13:31 | General Progress Note ---
Assessment/Plan Assessment/Plan Dementia encephalopathy the pt lacks capacity to make decisions haldol prn will fill out the forms Subjective Date patient seen: Mar 05, 2018 Neurologic/Psychiatric: Reports: anxiety, depressed, emotional problems Allergies: Coded Allergies: No Known Allergies (Verified , 03/10/07) Subjective the pt is confused lethargic. the pt has severe cognitive impairment. Objective Last 24 Hour Vital Signs Date Time Temp Pulse Resp B/P (MAP) Pulse Ox O2 Delivery O2 Flow Rate FiO2 03/05/18 13:19 70 03/05/18 13:08 92 20 70 03/05/18 13:00 93 22 139/80 (99) 98 03/05/18 12:00 98.4 90 23 138/70 (92) 98 98.4 03/05/18 12:00 Mechanical Ventilator 03/05/18 12:00 91 03/05/18 11:00 93 18 113/59 (77) 98 03/05/18 10:40 95 21 70 03/05/18 10:00 88 20 136/83 (100) 99 03/05/18 09:10 87 19 70 03/05/18 09:00 86 16 122/69 (86) 99 03/05/18 08:51 85 03/05/18 08:00 Mechanical Ventilator 03/05/18 08:00 98.5 89 18 110/59 (76) 95 98.5 03/05/18 08:00 86 03/05/18 08:00 70 03/05/18 07:00 92 20 119/66 (83) 92 03/05/18 06:33 84 16 70 03/05/18 06:00 95 20 113/65 (81) 92 03/05/18 05:34 84 107/59 03/05/18 05:11 81 20 60 03/05/18 05:00 83 20 107/59 (75) 92 03/05/18 04:00 98.1 83 20 121/66 (84) 96 98.1 03/05/18 04:00 40 03/05/18 04:00 Mechanical Ventilator 03/05/18 04:00 68 03/05/18 03:21 72 16 40 03/05/18 03:00 67 15 92/51 (65) 95 03/05/18 02:00 67 16 111/64 (80) 96 03/05/18 01:30 68 15 40 03/05/18 01:00 69 16 97/52 (67) 95 03/05/18 00:00 77 03/05/18 00:00 Mechanical Ventilator 03/05/18 00:00 60 03/05/18 00:00 69 16 99/53 (68) 95 03/04/18 23:18 72 15 40 03/04/18 23:00 99.3 72 15 97/54 (68) 95 99.3 03/04/18 22:00 81 16 111/56 (74) 95 03/04/18 22:00 78 03/04/18 21:40 85 120/64 03/04/18 21:00 84 20 120/64 (82) 95 03/04/18 20:40 84 18 40 03/04/18 20:00 83 25 116/63 (80) 94 03/04/18 20:00 Mechanical Ventilator 03/04/18 20:00 60 03/04/18 19:30 80 15 40 03/04/18 19:00 83 31 128/61 (83) 95 03/04/18 18:00 85 20 119/65 (83) 95 03/04/18 17:00 87 24 122/65 (84) 95 03/04/18 16:44 92 16 40 03/04/18 16:00 Mechanical Ventilator 03/04/18 16:00 99.8 80 17 106/68 (81) 93 99.8 03/04/18 16:00 80 03/04/18 16:00 60 03/04/18 15:00 87 18 114/72 (86) 93 03/04/18 14:41 90 16 40 03/04/18 14:00 95 19 114/76 (89) 91 Intake and Output 03/04/18 03/05/18 19:00 07:00 Intake Total 1582 ml 1610 ml Output Total 750 ml 785 ml Balance 832 ml 825 ml Free Water 300 ml IV Total 712 ml 1010 ml Tube Feeding 540 ml 540 ml Other 30 ml 60 ml Output Urine Total 750 ml 785 ml # Bowel Movements 3 2 Laboratory Tests 03/05/18 04:39: Sodium Level 150H, Potassium Level 2.9L, Chloride Level 109H, Carbon Dioxide Level 42*H, Anion Gap 0L, Blood Urea Nitrogen 43H, Creatinine 0.6, Estimat Glomerular Filtration Rate , Glucose Level 134H, Calcium Level 8.5 Height (Feet): 4 Height (Inches): 0.00 Weight (Pounds): 83 Darling Baker MD Mar 05, 2018 13:31
--- NOTE | 2018-03-05 14:28 | Infectious Diseases Prog Note ---
Assessment/Plan Problems: (1) Leukocytosis Assessment & Plan: suspect dehydration and over diuresis related. repeated blood culture is negative so far which rule out sepsis , continue meropenem for now , and tylenol as needed . encourage free water replacement (2) HCAP (healthcare-associated pneumonia) Assessment & Plan: S/P intubation due to worsening respiratory failure . on meropenem empiric coverage for now , repeated sputum culture is pending . pulmonary is following. 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 continue local wound care and dressing changes as per hospital protocol . followed by general surgery. already on meropenem (4) Acute respiratory failure Assessment & Plan: now chronic and ventilator dependant , pulmonary is following, monitor CXR and ABG . she may need tracheostomy (5) Low grade fever Assessment & Plan: possible due urine infection , S/P sarkar catheter change, already on meropenem , repeated blood culture is pending . repeated CXR showed improvement in her aeration . await sputum culture continue tylenol as needed Subjective ROS Limited/Unobtainable: Yes Allergies: Coded Allergies: No Known Allergies (Verified , 03/10/07) Subjective she is still intubated on mechanical ventilation, in ICU, not alert , no fever, no chills , no diarrhea . sarkar catheter was changed Objective Vital Signs Last 24 Hour Vital Signs Date Time Temp Pulse Resp B/P (MAP) Pulse Ox O2 Delivery O2 Flow Rate FiO2 03/05/18 13:38 94 139/80 03/05/18 13:19 70 03/05/18 13:08 92 20 70 03/05/18 13:00 93 22 139/80 (99) 98 03/05/18 12:00 98.4 90 23 138/70 (92) 98 98.4 03/05/18 12:00 Mechanical Ventilator 03/05/18 12:00 91 03/05/18 11:00 93 18 113/59 (77) 98 03/05/18 10:40 95 21 70 03/05/18 10:00 88 20 136/83 (100) 99 03/05/18 09:10 87 19 70 03/05/18 09:00 86 16 122/69 (86) 99 03/05/18 08:51 85 03/05/18 08:00 Mechanical Ventilator 03/05/18 08:00 98.5 89 18 110/59 (76) 95 98.5 03/05/18 08:00 86 03/05/18 08:00 70 03/05/18 07:00 92 20 119/66 (83) 92 18 06:33 84 16 70 03/05/18 06:00 95 20 113/65 (81) 92 03/05/18 05:34 84 107/59 03/05/18 05:11 81 20 60 03/05/18 05:00 83 20 107/59 (75) 92 03/05/18 04:00 98.1 83 20 121/66 (84) 96 98.1 03/05/18 04:00 40 03/05/18 04:00 Mechanical Ventilator 03/05/18 04:00 68 03/05/18 03:21 72 16 40 03/05/18 03:00 67 15 92/51 (65) 95 03/05/18 02:00 67 16 111/64 (80) 96 03/05/18 01:30 68 15 40 03/05/18 01:00 69 16 97/52 (67) 95 03/05/18 00:00 77 03/05/18 00:00 Mechanical Ventilator 03/05/18 00:00 60 03/05/18 00:00 69 16 99/53 (68) 95 03/04/18 23:18 72 15 40 18 23:00 99.3 72 15 97/54 (68) 95 99.3 03/04/18 22:00 81 16 111/56 (74) 95 18 22:00 78 18 21:40 85 120/64 18 21:00 84 20 120/64 (82) 95 18 20:40 84 18 40 18 20:00 83 25 116/63 (80) 94 18 20:00 Mechanical Ventilator 03/04/18 20:00 60 18 19:30 80 15 40 7/18 19:00 83 31 128/61 (83) 95 18 18:00 85 20 119/65 (83) 95 18 17:00 87 24 122/65 (84) 95 7/19/18 16:44 92 16 40 7/19/18 16:00 Mechanical Ventilator 03/04/18 16:00 99.8 80 17 106/68 (81) 93 99.8 03/04/18 16:00 80 03/04/18 16:00 60 03/04/18 15:00 87 18 114/72 (86) 93 03/04/18 14:41 90 16 40 Height (Feet): 4 Height (Inches): 0.00 Weight (Pounds): 83 General Appearance: WD/WN, no acute distress HEENT: normocephalic, atraumatic, anicteric, mucous membranes moist Respiratory/Chest: chest wall non-tender, no respiratory distress, no accessory muscle use, decreased breath sounds, crackles/rales Cardiovascular: normal peripheral pulses, normal rate, regular rhythm, no gallop/murmur, no JVD Abdomen: normal bowel sounds, soft, non tender, no organomegaly, non distended , no mass, no scars Extremities: no cyanosis, no clubbing Skin: no rash, no lesions, ulcers Neurologic/Psychiatric: alert, unresponsiveness Microbiology Date/Time Source Procedure Growth Status 03/02/18 16:30 Blood Blood Culture - Preliminary NO GROWTH AFTER 48 HOURS Resulted 03/02/18 16:15 Blood Blood Culture - Preliminary NO GROWTH AFTER 48 HOURS Resulted 03/05/18 04:30 Sputum Expectorated Gram Stain - Final Resulted 03/05/18 04:30 Sputum Expectorated Sputum Culture Pending Resulted Laboratory Tests Test 03/05/18 04:39 Sodium Level 150 MMOL/L (136-145) H Potassium Level 2.9 MMOL/L (3.5-5.1) L Chloride Level 109 MMOL/L (98-107) H Carbon Dioxide Level 42 MMOL/L (21-32) *H Anion Gap 0 mmol/L (5-15) L Blood Urea Nitrogen 43 mg/dL (7-18) H Creatinine 0.6 MG/DL (0.55-1.30) Estimat Glomerular Filtration Rate mL/min (>60) Glucose Level 134 MG/DL (74-106) H Calcium Level 8.5 MG/DL (8.5-10.1) Current Medications Medications (Trade) Dose Ordered Sig/Rosetta Route PRN Reason Start Time Stop Time Status Last Admin Dose Admin Acetaminophen (Tylenol) 650 mg Q4H PRN GT Mild Pain/Temp > 100.5 02/22/18 08:00 03/10/18 15:59 03/03/18 05:13 Artificial Tears (Akwa-Tears) 2 drop Q2HR PRN BOTH EYES Dry Eyes 03/04/18 19:30 04/03/18 19:29 Ascorbic Acid (Vitamin C) 500 mg DAILY GT 02/22/18 09:00 03/07/18 08:59 03/05/18 08:52 Clonidine HCl (Catapres Tab) 0.1 mg Q8H PRN GT SBP >160 02/22/18 09:00 03/09/18 16:59 Dextrose 1,000 ml @ 75 mls/hr [id number] IV 03/04/18 09:00 04/03/18 08:59 03/05/18 11:42 Dextrose (Dextrose 50%) 25 ml STAT PRN IV Hypoglycemia 02/22/18 16:00 03/11/18 15:59 Dextrose (Dextrose 50%) 50 ml STAT PRN IV Hypoglycemia 02/22/18 16:00 03/11/18 15:59 Digoxin (Lanoxin) 0.125 mg DAILY GT 02/22/18 09:00 03/07/18 08:59 03/05/18 08:51 Diltiazem HCl (Cardizem) 90 mg EVERY 8 HOURS ORAL 02/26/18 22:00 03/12/18 21:59 03/05/18 13:38 Enoxaparin Sodium (Lovenox) 30 mg Q24H SUBQ 02/22/18 09:00 03/07/18 08:59 03/05/18 08:55 Famotidine (Pepcid) 20 mg DAILY GT 02/22/18 09:00 03/10/18 08:59 03/05/18 08:51 Insulin Aspart (NovoLOG) EVERY 6 HOURS SUBQ 02/22/18 06:30 03/07/18 06:29 03/05/18 11:43 Meropenem 1 gm/ Sodium Chloride 110 ml @ 220 mls/hr Q12HR@0600,1800 IVPB 02/22/18 18:00 03/09/18 17:59 03/05/18 05:34 Dom Hoffman M.D. Mar 05, 2018 14:28
[2018-03-05 14:48] LABS: BASOPHILS % (AUTO) 0.4 % (0.0-2.0); EOSINOPHILS % (AUTO) 0.6 % (0.0-3.0); HEMOGLOBIN 11.9 G/DL (12.0-16.0); LYMPHOCYTES % (AUTO) 18.9 % (20.0-45.0); MEAN CORPUSCULAR VOLUME 87 FL (80-99); MONOCYTES % (AUTO) 4.3 % (1.0-10.0); NEUTROPHILS % (AUTO) 75.8 % (45.0-75.0); PLATELET COUNT 502 K/UL (150-450); RED BLOOD COUNT 4.37 M/UL (4.20-5.40); RED CELL DISTRIBUTION WIDTH 16.4 % (11.6-14.8); WHITE BLOOD COUNT 15.5 K/UL (4.8-10.8)
[2018-03-06] VITALS (24 sets, daily range): BP systolic 71–135; BP diastolic 44–83
[2018-03-06] MEDS: Meropenem 1 GM in NS 110 ML IVPB SCH ×2 (05:27→18:16)
[2018-03-06] MEDS: NovoLOG Insulin Flexpen SUBQ SCH ×3 (05:27→18:16)
[2018-03-06] MEDS: dilTIAZem HCl 90mg tab ORAL SCH ×3 (05:28→22:00)
[2018-03-06 05:50] LABS: ANION GAP -1 mmol/L (5-15); BLOOD UREA NITROGEN 23 mg/dL (7-18); CALCIUM 8.3 MG/DL (8.5-10.1); CARBON DIOXIDE 37 MMOL/L (21-32); CHLORIDE 107 MMOL/L (98-107); CREATININE 0.5 MG/DL (0.55-1.30); POTASSIUM 4.1 MMOL/L (3.5-5.1); SODIUM 143 MMOL/L (136-145)
--- NOTE | 2018-03-06 08:30 | Nephrology Progress Note ---
Assessment/Plan Assessment/Plan 1. Sepsis - Abx per ID. WBC improved 2. Sacral Decub- Gen Surg mgmt. 3. Hyernatremia- resolved. DC D5W 4. Resp FL- Patient intubated - patient requiring emergent trach as she has been intubated for a prolonged time and no clear possible of being extubated anytime soon - bioethics for DNR/I 5. AFib- digoxin + cardizem 6. DVT prophylaxis- lovenox Subjective Date patient seen: Mar 06, 2018 Time patient seen: 08:29 ROS Limited/Unobtainable: Yes Allergies: Coded Allergies: No Known Allergies (Verified , 03/10/07) Subjective Patient remains intubated Objective Last 24 Hour Vital Signs Date Time Temp Pulse Resp B/P (MAP) Pulse Ox O2 Delivery O2 Flow Rate FiO2 03/06/18 07:15 79 23 100 03/06/18 07:00 71 22 91/53 (66) 96 03/06/18 06:00 72 22 94/53 (67) 96 03/06/18 05:28 87 114/65 03/06/18 05:00 79 21 100 03/06/18 05:00 86 16 114/65 (81) 95 03/06/18 04:00 100 03/06/18 04:00 83 03/06/18 04:00 Mechanical Ventilator 03/06/18 04:00 84 16 113/60 (77) 95 03/06/18 03:00 84 23 104/59 (74) 96 03/06/18 02:53 93 25 100 03/06/18 02:00 90 31 121/67 (85) 97 03/06/18 01:12 91 27 100 03/06/18 01:00 89 24 121/68 (85) 94 03/06/18 00:00 Mechanical Ventilator 03/06/18 00:00 100 03/06/18 00:00 93 03/06/18 00:00 98.3 93 25 112/61 (78) 96 98.3 03/05/18 23:04 97 27 100 03/05/18 23:00 96 26 112/71 (85) 95 03/05/18 22:00 81 22 104/66 (79) 89 03/05/18 21:38 94 120/70 03/05/18 21:10 90 23 100 03/05/18 21:00 92 28 120/70 (87) 95 03/05/18 20:00 98.1 94 25 113/55 (74) 90 98.1 03/05/18 20:00 Mechanical Ventilator 03/05/18 20:00 80 03/05/18 20:00 93 03/05/18 19:00 95 19 137/58 (84) 92 03/05/18 18:31 93 23 100 03/05/18 18:00 92 22 144/75 (98) 94 03/05/18 17:21 89 22 70 03/05/18 17:00 90 20 140/78 (98) 95 03/05/18 16:00 70 03/05/18 16:00 Mechanical Ventilator 03/05/18 16:00 98.6 88 21 123/83 (96) 94 98.6 03/05/18 15:00 92 19 127/68 (87) 96 03/05/18 14:50 95 24 70 03/05/18 14:00 94 23 118/67 (84) 94 03/05/18 14:00 93 03/05/18 13:38 94 139/80 03/05/18 13:08 92 20 70 03/05/18 13:00 93 22 139/80 (99) 98 03/05/18 12:00 98.4 90 23 138/70 (92) 98 98.4 03/05/18 12:00 70 03/05/18 12:00 Mechanical Ventilator 03/05/18 12:00 91 03/05/18 11:00 93 18 113/59 (77) 98 03/05/18 10:40 95 21 70 03/05/18 10:00 88 20 136/83 (100) 99 03/05/18 09:10 87 19 70 03/05/18 09:00 86 16 122/69 (86) 99 03/05/18 08:51 85 Intake and Output 03/05/18 03/06/18 19:00 07:00 Intake Total 1560 ml 1560 ml Output Total 1075 ml 650 ml Balance 485 ml 910 ml Free Water 100 ml IV Total 900 ml 900 ml Tube Feeding 540 ml 540 ml Other 20 ml 120 ml Output Urine Total 1075 ml 650 ml # Bowel Movements 1 2 Laboratory Tests 03/05/18 14:35: White Blood Count 15.5H, Red Blood Count 4.37, Hemoglobin 11.9L, Hematocrit 38.0 , Mean Corpuscular Volume 87, Mean Corpuscular Hemoglobin 27.3, Mean Corpuscular Hemoglobin Concent 31.4L, Red Cell Distribution Width 16.4H, Platelet Count 502H, Mean Platelet Volume 7.7, Neutrophils (%) (Auto) 75.8H, Lymphocytes (%) (Auto) 18.9L, Monocytes (%) (Auto) 4.3, Eosinophils (%) (Auto) 0.6, Basophils (%) (Auto) 0.4, Potassium Level 4.6# 03/06/18 04:44: Potassium Level 4.1, Sodium Level 143, Chloride Level 107, Carbon Dioxide Level 37H, Anion Gap -1L, Blood Urea Nitrogen 23H, Creatinine 0.5L, Estimat Glomerular Filtration Rate , Glucose Level 91, Calcium Level 8.3L Height (Feet): 4 Height (Inches): 0.00 Weight (Pounds): 83 General Appearance: WD/WN, no apparent distress EENT: PERRL/EOMI, normal ENT inspection Neck: non-tender, normal alignment, supple Cardiovascular: normal peripheral pulses, normal rate Respiratory/Chest: chest wall non-tender, rhonchi - bilaterally Abdomen: normal bowel sounds, non tender, soft Edema: no edema noted Arm (L), no edema noted Arm (R), no edema noted Leg (L), no edema noted Leg (R), no edema noted Pedal (L), no edema noted Pedal (R), no edema noted Generalized Jorge Graf M.D. Mar 06, 2018 08:30
[2018-03-06] MEDS: Ascorbic Acid 500mg tab GT SCH (09:04)
[2018-03-06] MEDS: Digoxin 0.125mg tab GT SCH (09:04)
[2018-03-06] MEDS: Enoxaparin 30mg Inj SUBQ SCH (09:05)
--- NOTE | 2018-03-06 16:22 | Infectious Diseases Prog Note ---
Assessment/Plan Problems: (1) HCAP (healthcare-associated pneumonia) Assessment & Plan: S/P intubation due to worsening respiratory failure . on meropenem empiric coverage for pneumonia , repeated sputum culture is growing gram negative rods . pulmonary is following. (2) Leukocytosis Assessment & Plan: improving , repeated blood culture is negative so far , continue meropenem for now , and tylenol as needed . S/P Sarkar exchange . 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 continue local wound care and dressing changes as per hospital protocol . followed by general surgery. already on meropenem (4) Acute respiratory failure Assessment & Plan: now chronic and ventilator dependant , pulmonary is following, monitor CXR and ABG . she may need tracheostomy (5) Low grade fever Assessment & Plan: possible due urine infection , S/P sarkar catheter change, already on meropenem , repeated blood culture is pending . repeated CXR showed improvement in her aeration . await sputum culture continue tylenol as needed Subjective ROS Limited/Unobtainable: Yes Allergies: Coded Allergies: No Known Allergies (Verified , 03/10/07) Subjective she is still intubated on mechanical ventilation, in ICU, not alert , no fever, no chills , no diarrhea . sarkar catheter was changed Objective Vital Signs Last 24 Hour Vital Signs Date Time Temp Pulse Resp B/P (MAP) Pulse Ox O2 Delivery O2 Flow Rate FiO2 03/06/18 15:12 78 24 100 03/06/18 15:00 78 17 117/62 (80) 94 03/06/18 14:00 77 20 106/65 (79) 95 03/06/18 13:37 76 106/54 03/06/18 13:30 76 25 100 03/06/18 13:00 74 21 106/54 (71) 95 03/06/18 12:00 Mechanical Ventilator 03/06/18 12:00 98.8 71 21 96/52 (67) 99 98.8 03/06/18 12:00 100 03/06/18 11:55 75 03/06/18 11:01 73 21 100 03/06/18 11:00 70 23 99/49 (66) 97 03/06/18 10:00 84 21 90/53 (65) 92 03/06/18 09:04 78 03/06/18 09:00 75 19 98/61 (73) 89 03/06/18 08:56 74 20 100 03/06/18 08:00 99.2 68 22 71/44 (53) 100 99.2 03/06/18 08:00 100 03/06/18 08:00 Mechanical Ventilator 03/06/18 07:15 79 23 100 03/06/18 07:04 79 03/06/18 07:00 71 22 91/53 (66) 96 03/06/18 06:00 72 22 94/53 (67) 96 03/06/18 05:28 87 114/65 03/06/18 05:00 79 21 100 03/06/18 05:00 86 16 114/65 (81) 95 03/06/18 04:00 100 03/06/18 04:00 83 03/06/18 04:00 Mechanical Ventilator 03/06/18 04:00 84 16 113/60 (77) 95 03/06/18 03:00 84 23 104/59 (74) 96 03/06/18 02:53 93 25 100 03/06/18 02:00 90 31 121/67 (85) 97 03/06/18 01:12 91 27 100 03/06/18 01:00 89 24 121/68 (85) 94 03/06/18 00:00 Mechanical Ventilator 03/06/18 00:00 100 03/06/18 00:00 93 03/06/18 00:00 98.3 93 25 112/61 (78) 96 98.3 03/05/18 23:04 97 27 100 03/05/18 23:00 96 26 112/71 (85) 95 03/05/18 22:00 81 22 104/66 (79) 89 03/05/18 21:38 94 120/70 03/05/18 21:10 90 23 100 03/05/18 21:00 92 28 120/70 (87) 95 03/05/18 20:00 98.1 94 25 113/55 (74) 90 98.1 03/05/18 20:00 Mechanical Ventilator 03/05/18 20:00 80 20 20:00 93 03/05/18 19:00 95 19 137/58 (84) 92 03/05/18 18:31 93 23 100 03/05/18 18:00 92 22 144/75 (98) 94 03/05/18 17:21 89 22 70 03/05/18 17:00 90 20 140/78 (98) 95 Height (Feet): 4 Height (Inches): 0.00 Weight (Pounds): 83 General Appearance: WD/WN, no acute distress HEENT: normocephalic, atraumatic, anicteric, mucous membranes moist, pharynx normal, supple Respiratory/Chest: chest wall non-tender, no respiratory distress, no accessory muscle use, decreased breath sounds, expiratory wheezing Cardiovascular: normal peripheral pulses, normal rate, regular rhythm, no gallop/murmur, no JVD Abdomen: normal bowel sounds, soft, non tender, no organomegaly, non distended , no mass, no scars Extremities: no cyanosis, no clubbing Skin: no rash, no lesions, ulcers Neurologic/Psychiatric: alert, unresponsiveness Lymphatic: no neck adenopathy, no groin adenopathy Microbiology Date/Time Source Procedure Growth Status 03/05/18 04:30 Sputum Expectorated Gram Stain - Final Resulted 03/05/18 04:30 Sputum Culture - Preliminary Gram Negative Rogelio Resulted Laboratory Tests Test 03/06/18 04:44 Sodium Level 143 MMOL/L (136-145) Potassium Level 4.1 MMOL/L (3.5-5.1) Chloride Level 107 MMOL/L (98-107) Carbon Dioxide Level 37 MMOL/L (21-32) H Anion Gap -1 mmol/L (5-15) L Blood Urea Nitrogen 23 mg/dL (7-18) H Creatinine 0.5 MG/DL (0.55-1.30) L Estimat Glomerular Filtration Rate mL/min (>60) Glucose Level 91 MG/DL (74-106) Calcium Level 8.3 MG/DL (8.5-10.1) L Current Medications Medications (Trade) Dose Ordered Sig/Rosetta Route PRN Reason Start Time Stop Time Status Last Admin Dose Admin Acetaminophen (Tylenol) 650 mg Q4H PRN GT Mild Pain/Temp > 100.5 02/22/18 08:00 03/10/18 15:59 03/03/18 05:13 Artificial Tears (Akwa-Tears) 2 drop Q2HR PRN BOTH EYES Dry Eyes 03/04/18 19:30 04/03/18 19:29 Ascorbic Acid (Vitamin C) 500 mg DAILY GT 02/22/18 09:00 03/07/18 08:59 03/06/18 09:04 Clonidine HCl (Catapres Tab) 0.1 mg Q8H PRN GT SBP >160 02/22/18 09:00 03/09/18 16:59 Dextrose (Dextrose 50%) 25 ml STAT PRN IV Hypoglycemia 02/22/18 16:00 03/11/18 15:59 Dextrose (Dextrose 50%) 50 ml STAT PRN IV Hypoglycemia 02/22/18 16:00 03/11/18 15:59 Digoxin (Lanoxin) 0.125 mg DAILY GT 02/22/18 09:00 03/07/18 08:59 03/06/18 09:04 Diltiazem HCl (Cardizem) 90 mg EVERY 8 HOURS ORAL 02/26/18 22:00 03/12/18 21:59 03/06/18 13:37 Enoxaparin Sodium (Lovenox) 30 mg Q24H SUBQ 02/22/18 09:00 03/13/18 08:59 03/06/18 09:05 Famotidine (Pepcid) 20 mg DAILY GT 02/22/18 09:00 03/10/18 08:59 03/06/18 09:04 Insulin Aspart (NovoLOG) EVERY 6 HOURS SUBQ 02/22/18 06:30 03/07/18 06:29 03/06/18 12:17 Meropenem 1 gm/ Sodium Chloride 110 ml @ 220 mls/hr Q12HR@0600,1800 IVPB 02/22/18 18:00 03/09/18 17:59 03/06/18 05:27 Dom Hoffman M.D. Mar 06, 2018 16:22
[2018-03-06] MEDS ORDERED: Tubing IV Secondary IV ONE (17:40)
--- NOTE | 2018-03-06 17:51 | Cardiology Progress Note ---
Assessment/Plan Status: stable Assessment/Plan Assessment/Plan Assessment/Plan 1. Paroxysmal atrial fibrillation. In SR on digoxin 0.125 mg daily and Cardizem 30 tid. Off anticoagulation. Echo Nl EF. 2. Hypertension. On Cardizem 30 tid 3. Respiratory failure, on Vent now in ICU 4. Diabetes, on insulin. 5. Dementia. 6. Dysphagia, status post PEG 7. Sacral decubitus stage III. FU by Dr. Austin. 8. CVA with aphasia and contractures. 9. Trach for prolonged intubation Subjective Cardiovascular: Reports: no symptoms Respiratory: Reports: no symptoms Gastrointestinal/Abdominal: Reports: no symptoms Genitourinary: Reports: no symptoms Subjective Pt in no acute distress. Opens eyes spontaneously and withdraws to pain. Non verbal. Remains orally intubated, with fiO2 of 50%, saturating 96-98%. Vent settings A/C 15, Vt 450, FI02 80%, PEEP +5 Objective Last 24 Hour Vital Signs Date Time Temp Pulse Resp B/P (MAP) Pulse Ox O2 Delivery O2 Flow Rate FiO2 03/06/18 17:11 93 26 100 03/06/18 15:12 78 24 100 03/06/18 15:00 78 17 117/62 (80) 94 03/06/18 14:00 77 20 106/65 (79) 95 03/06/18 13:37 76 106/54 03/06/18 13:30 76 25 100 03/06/18 13:00 74 21 106/54 (71) 95 03/06/18 12:00 Mechanical Ventilator 03/06/18 12:00 98.8 71 21 96/52 (67) 99 98.8 03/06/18 12:00 100 03/06/18 11:55 75 03/06/18 11:01 73 21 100 03/06/18 11:00 70 23 99/49 (66) 97 03/06/18 10:00 84 21 90/53 (65) 92 03/06/18 09:04 78 03/06/18 09:00 75 19 98/61 (73) 89 03/06/18 08:56 74 20 100 03/06/18 08:00 99.2 68 22 71/44 (53) 100 99.2 03/06/18 08:00 100 03/06/18 08:00 Mechanical Ventilator 03/06/18 07:15 79 23 100 03/06/18 07:04 79 03/06/18 07:00 71 22 91/53 (66) 96 03/06/18 06:00 72 22 94/53 (67) 96 03/06/18 05:28 87 114/65 03/06/18 05:00 79 21 100 03/06/18 05:00 86 16 114/65 (81) 95 03/06/18 04:00 100 03/06/18 04:00 83 03/06/18 04:00 Mechanical Ventilator 03/06/18 04:00 84 16 113/60 (77) 95 03/06/18 03:00 84 23 104/59 (74) 96 03/06/18 02:53 93 25 100 03/06/18 02:00 90 31 121/67 (85) 97 03/06/18 01:12 91 27 100 03/06/18 01:00 89 24 121/68 (85) 94 03/06/18 00:00 Mechanical Ventilator 03/06/18 00:00 100 03/06/18 00:00 93 03/06/18 00:00 98.3 93 25 112/61 (78) 96 98.3 03/05/18 23:04 97 27 100 03/05/18 23:00 96 26 112/71 (85) 95 03/05/18 22:00 81 22 104/66 (79) 89 18 21:38 94 120/70 03/05/18 21:10 90 23 100 03/05/18 21:00 92 28 120/70 (87) 95 03/05/18 20:00 98.1 94 25 113/55 (74) 90 98.1 03/05/18 20:00 Mechanical Ventilator 03/05/18 20:00 80 2018 20:00 93 03/05/18 19:00 95 19 137/58 (84) 92 03/05/18 18:31 93 23 100 03/05/18 18:00 92 22 144/75 (98) 94 General Appearance: no apparent distress, on vent EENT: PERRL/EOMI Neck: non-tender Rhythm: NSR Cardiovascular: normal peripheral pulses Respiratory/Chest: chest wall non-tender Abdomen: non tender Extremities: normal range of motion Neurologic: no pronator, abnormal CN, motor weakness, sensory deficit, disoriented, unresponsiveness Intake and Output 03/05/18 03/06/18 19:00 07:00 Intake Total 1560 ml 1560 ml Output Total 1075 ml 650 ml Balance 485 ml 910 ml Free Water 100 ml IV Total 900 ml 900 ml Tube Feeding 540 ml 540 ml Other 20 ml 120 ml Output Urine Total 1075 ml 650 ml # Bowel Movements 1 2 Laboratory Tests Test 03/06/18 04:44 Sodium Level 143 MMOL/L (136-145) Potassium Level 4.1 MMOL/L (3.5-5.1) Chloride Level 107 MMOL/L (98-107) Carbon Dioxide Level 37 MMOL/L (21-32) H Anion Gap -1 mmol/L (5-15) L Blood Urea Nitrogen 23 mg/dL (-18) H Creatinine 0.5 MG/DL (0.55-1.30) L Estimat Glomerular Filtration Rate mL/min (>60) Glucose Level 91 MG/DL (74-106) Calcium Level 8.3 MG/DL (8.5-10.1) L Microbiology Date/Time Source Procedure Growth Status 03/05/18 04:30 Sputum Expectorated Gram Stain - Final Resulted 03/05/18 04:30 Sputum Culture - Preliminary Gram Negative Rogelio Resulted Maxx Ureña M.D. Mar 06, 2018 17:51
[2018-03-06] MEDS: Acetaminophen 650mg/20.3ml GT PRN (21:59)
[2018-03-07] VITALS (24 sets, daily range): BP systolic 94–124; BP diastolic 49–62
[2018-03-07] MEDS: NovoLOG Insulin Flexpen SUBQ SCH ×3 (00:54→20:54)
[2018-03-07 05:04] LABS: HEMATOCRIT 33.4 % (37.0-47.0); HEMOGLOBIN 10.4 G/DL (12.0-16.0); MEAN CORPUSCULAR VOLUME 88 FL (80-99); PLATELET COUNT 439 K/UL (150-450); RED BLOOD COUNT 3.82 M/UL (4.20-5.40); RED CELL DISTRIBUTION WIDTH 16.2 % (11.6-14.8); WHITE BLOOD COUNT 19.3 K/UL (4.8-10.8)
[2018-03-07 05:10] LABS: ANION GAP 3 mmol/L (5-15); BLOOD UREA NITROGEN 31 mg/dL (7-18); CALCIUM 8.7 MG/DL (8.5-10.1); CARBON DIOXIDE 36 MMOL/L (21-32); CHLORIDE 107 MMOL/L (98-107); CREATININE 0.7 MG/DL (0.55-1.30); POTASSIUM 4.2 MMOL/L (3.5-5.1); SODIUM 146 MMOL/L (136-145)
[2018-03-07] MEDS: Meropenem 1 GM in NS 110 ML IVPB SCH ×2 (05:17→17:20)
[2018-03-07] MEDS: dilTIAZem HCl 90mg tab ORAL SCH ×3 (05:18→21:32)
[2018-03-07] MEDS: Ascorbic Acid 500mg tab GT SCH (08:29)
[2018-03-07] MEDS: Digoxin 0.125mg tab GT SCH (08:29)
[2018-03-07] MEDS: Enoxaparin 30mg Inj SUBQ SCH (08:30)
--- NOTE | 2018-03-07 09:20 | Pulmonology Progress Note ---
Assessment/Plan Assessment/Plan IMPRESSION: 1. Bilateral pneumonia. Improved. 2. Respiratory failure; intubated; remains hypoxemic with 60% FiO2 3. Hypertension. 4. Diabetes mellitus. 5. Dehydration, hypernatremia 6. Tardive dyskinesia 7. 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 re:DNR Subjective Interval Events: No significant chnage Constitutional: Reports: no symptoms HEENT: Repors: no symptoms Cardiovascular: Reports: no symptoms Gastrointestinal/Abdominal: Reports: no symptoms Allergies: Coded Allergies: No Known Allergies (Verified , 03/10/07) Objective Last 24 Hour Vital Signs Date Time Temp Pulse Resp B/P (MAP) Pulse Ox O2 Delivery O2 Flow Rate FiO2 03/07/18 09:00 70 17 113/62 (79) 100 03/07/18 08:29 69 03/07/18 08:00 80 03/07/18 08:00 68 03/07/18 08:00 97.5 69 18 108/59 (75) 100 97.5 03/07/18 08:00 Mechanical Ventilator 03/07/18 07:00 69 16 100/55 (70) 100 03/07/18 06:43 68 16 80 03/07/18 06:00 71 17 103/57 (72) 100 03/07/18 05:18 70 107/55 03/07/18 05:00 68 14 105/55 (72) 100 03/07/18 04:49 73 20 90 03/07/18 04:00 91 03/07/18 04:00 Mechanical Ventilator 03/07/18 04:00 97.7 70 19 100/56 (71) 100 97.7 03/07/18 04:00 90 03/07/18 03:29 71 17 90 03/07/18 03:00 72 18 105/56 (72) 100 03/07/18 02:00 71 17 100/51 (67) 100 03/07/18 01:00 74 18 98/51 (67) 100 03/07/18 00:50 73 19 90 03/07/18 00:00 89 03/07/18 00:00 97.1 74 27 94/55 (68) 100 97.1 03/07/18 00:00 100 03/07/18 00:00 Mechanical Ventilator 03/06/18 23:05 80 19 100 03/06/18 23:00 88 28 117/69 (85) 100 03/06/18 22:00 92 98/62 03/06/18 22:00 93 23 117/59 (78) 99 03/06/18 21:00 105 22 98/61 (73) 98 03/06/18 20:59 101 26 100 03/06/18 20:00 99.3 114 25 117/81 (93) 93 99.3 03/06/18 20:00 114 03/06/18 20:00 100 03/06/18 20:00 Mechanical Ventilator 03/06/18 19:07 93 26 100 03/06/18 19:00 113 20 133/83 (100) 94 03/06/18 18:00 99.9 97 25 135/68 (90) 94 99.9 03/06/18 17:11 93 26 100 03/06/18 17:00 88 23 127/61 (83) 94 03/06/18 16:00 83 17 121/77 (92) 96 03/06/18 16:00 Mechanical Ventilator 03/06/18 16:00 100 03/06/18 15:20 80 03/06/18 15:12 78 24 100 03/06/18 15:00 78 17 117/62 (80) 94 03/06/18 14:00 77 20 106/65 (79) 95 03/06/18 13:37 76 106/54 03/06/18 13:30 76 25 100 03/06/18 13:00 74 21 106/54 (71) 95 03/06/18 12:00 Mechanical Ventilator 03/06/18 12:00 98.8 71 21 96/52 (67) 99 98.8 03/06/18 12:00 100 03/06/18 11:55 75 03/06/18 11:01 73 21 100 03/06/18 11:00 70 23 99/49 (66) 97 03/06/18 10:00 84 21 90/53 (65) 92 Intake and Output 03/06/18 03/07/18 19:00 07:00 Intake Total 802 ml 1295 ml Output Total 520 ml 320 ml Balance 282 ml 975 ml Free Water 50 ml 200 ml IV Total 112 ml 440 ml Tube Feeding 540 ml 585 ml Other 100 ml 70 ml Output Urine Total 520 ml 320 ml # Bowel Movements 1 2 General Appearance: no acute distress HEENT: normocephalic Respiratory/Chest: chest wall non-tender, lungs clear Cardiovascular: normal peripheral pulses, normal rate Abdomen: normal bowel sounds Microbiology Date/Time Source Procedure Growth Status 03/05/18 04:30 Sputum Expectorated Gram Stain - Final Resulted 03/05/18 04:30 Sputum Culture - Preliminary A.baumanii Complx - Mdr Resulted Laboratory Tests 03/07/18 03:56: White Blood Count 19.3H, Red Blood Count 3.82L, Hemoglobin 10.4L, Hematocrit 33.4L, Mean Corpuscular Volume 88, Mean Corpuscular Hemoglobin 27.2, Mean Corpuscular Hemoglobin Concent 31.1L, Red Cell Distribution Width 16.2H, Platelet Count 439, Mean Platelet Volume 8.2, Neutrophils (%) (Auto) , Lymphocytes (%) (Auto) , Monocytes (%) (Auto) , Eosinophils (%) (Auto) , Basophils (%) (Auto) , Differential Total Cells Counted 100, Neutrophils % ( Manual) 86H, Lymphocytes % (Manual) 12L, Monocytes % (Manual) 2, Eosinophils % ( Manual) 0, Basophils % (Manual) 0, Band Neutrophils 0, Platelet Estimate Adequate, Platelet Morphology Normal, Anisocytosis 1+, Sodium Level 146H, Potassium Level 4.2, Chloride Level 107, Carbon Dioxide Level 36H, Anion Gap 3L , Blood Urea Nitrogen 31H, Creatinine 0.7, Estimat Glomerular Filtration Rate , Glucose Level 121H, Calcium Level 8.7 Current Medications Medications (Trade) Dose Ordered Sig/Rosetta Route PRN Reason Start Time Stop Time Status Last Admin Dose Admin Acetaminophen (Tylenol) 650 mg Q4H PRN GT Mild Pain/Temp > 100.5 02/22/18 08:00 03/10/18 15:59 03/06/18 21:59 Artificial Tears (Akwa-Tears) 2 drop Q2HR PRN BOTH EYES Dry Eyes 03/04/18 19:30 04/03/18 19:29 Clonidine HCl (Catapres Tab) 0.1 mg Q8H PRN GT SBP >160 02/22/18 09:00 03/09/18 16:59 Dextrose (Dextrose 50%) 25 ml STAT PRN IV Hypoglycemia 02/22/18 16:00 03/11/18 15:59 Dextrose (Dextrose 50%) 50 ml STAT PRN IV Hypoglycemia 02/22/18 16:00 03/11/18 15:59 Diltiazem HCl (Cardizem) 90 mg EVERY 8 HOURS ORAL 02/26/18 22:00 03/12/18 21:59 03/07/18 05:18 Enoxaparin Sodium (Lovenox) 30 mg Q24H SUBQ 02/22/18 09:00 03/13/18 08:59 03/07/18 08:30 Famotidine (Pepcid) 20 mg DAILY GT 02/22/18 09:00 03/10/18 08:59 03/07/18 08:29 Meropenem 1 gm/ Sodium Chloride 110 ml @ 220 mls/hr Q12HR@0600,1800 IVPB 02/22/18 18:00 03/09/18 17:59 03/07/18 05:17 Jan Sawant MD Mar 07, 2018 09:20
--- NOTE | 2018-03-07 09:30 | Nephrology Progress Note ---
Assessment/Plan Assessment/Plan 1. Sepsis - Abx mgmt per ID 2. Sacral Decub- Gen Surg mgmt/wound care 3. Hyernatremia- resolved. Monitor, mat need to restart D5W 4. Resp FL- Patient intubated - patient requiring emergent trach as she has been intubated for a prolonged time and no clear possible of being extubated anytime soon - bioethics for DNR/I this week 5. AFib- digoxin + cardizem 6. DVT prophylaxis- lovenox Subjective Date patient seen: Mar 07, 2018 Time patient seen: 09:09 ROS Limited/Unobtainable: Yes Allergies: Coded Allergies: No Known Allergies (Verified , 03/10/07) Subjective Patient remains intubated. Pending bioethics and court decision Objective Last 24 Hour Vital Signs Date Time Temp Pulse Resp B/P (MAP) Pulse Ox O2 Delivery O2 Flow Rate FiO2 03/07/18 09:00 70 17 113/62 (79) 100 03/07/18 08:29 69 03/07/18 08:00 80 03/07/18 08:00 68 03/07/18 08:00 97.5 69 18 108/59 (75) 100 97.5 03/07/18 08:00 Mechanical Ventilator 03/07/18 07:00 69 16 100/55 (70) 100 03/07/18 06:43 68 16 80 03/07/18 06:00 71 17 103/57 (72) 100 03/07/18 05:18 70 107/55 03/07/18 05:00 68 14 105/55 (72) 100 03/07/18 04:49 73 20 90 03/07/18 04:00 91 03/07/18 04:00 Mechanical Ventilator 03/07/18 04:00 97.7 70 19 100/56 (71) 100 97.7 03/07/18 04:00 90 03/07/18 03:29 71 17 90 03/07/18 03:00 72 18 105/56 (72) 100 03/07/18 02:00 71 17 100/51 (67) 100 03/07/18 01:00 74 18 98/51 (67) 100 03/07/18 00:50 73 19 90 03/07/18 00:00 89 03/07/18 00:00 97.1 74 27 94/55 (68) 100 97.1 03/07/18 00:00 100 03/07/18 00:00 Mechanical Ventilator 03/06/18 23:05 80 19 100 03/06/18 23:00 88 28 117/69 (85) 100 03/06/18 22:00 92 98/62 03/06/18 22:00 93 23 117/59 (78) 99 03/06/18 21:00 105 22 98/61 (73) 98 03/06/18 20:59 101 26 100 03/06/18 20:00 99.3 114 25 117/81 (93) 93 99.3 03/06/18 20:00 114 03/06/18 20:00 100 03/06/18 20:00 Mechanical Ventilator 03/06/18 19:07 93 26 100 03/06/18 19:00 113 20 133/83 (100) 94 03/06/18 18:00 99.9 97 25 135/68 (90) 94 99.9 03/06/18 17:11 93 26 100 03/06/18 17:00 88 23 127/61 (83) 94 03/06/18 16:00 83 17 121/77 (92) 96 03/06/18 16:00 Mechanical Ventilator 03/06/18 16:00 100 03/06/18 15:20 80 03/06/18 15:12 78 24 100 03/06/18 15:00 78 17 117/62 (80) 94 03/06/18 14:00 77 20 106/65 (79) 95 03/06/18 13:37 76 106/54 03/06/18 13:30 76 25 100 03/06/18 13:00 74 21 106/54 (71) 95 03/06/18 12:00 Mechanical Ventilator 03/06/18 12:00 98.8 71 21 96/52 (67) 99 98.8 03/06/18 12:00 100 03/06/18 11:55 75 03/06/18 11:01 73 21 100 03/06/18 11:00 70 23 99/49 (66) 97 03/06/18 10:00 84 21 90/53 (65) 92 Intake and Output 03/06/18 03/07/18 19:00 07:00 Intake Total 802 ml 1295 ml Output Total 520 ml 320 ml Balance 282 ml 975 ml Free Water 50 ml 200 ml IV Total 112 ml 440 ml Tube Feeding 540 ml 585 ml Other 100 ml 70 ml Output Urine Total 520 ml 320 ml # Bowel Movements 1 2 Laboratory Tests 03/07/18 03:56: White Blood Count 19.3H, Red Blood Count 3.82L, Hemoglobin 10.4L, Hematocrit 33.4L, Mean Corpuscular Volume 88, Mean Corpuscular Hemoglobin 27.2, Mean Corpuscular Hemoglobin Concent 31.1L, Red Cell Distribution Width 16.2H, Platelet Count 439, Mean Platelet Volume 8.2, Neutrophils (%) (Auto) , Lymphocytes (%) (Auto) , Monocytes (%) (Auto) , Eosinophils (%) (Auto) , Basophils (%) (Auto) , Differential Total Cells Counted 100, Neutrophils % ( Manual) 86H, Lymphocytes % (Manual) 12L, Monocytes % (Manual) 2, Eosinophils % ( Manual) 0, Basophils % (Manual) 0, Band Neutrophils 0, Platelet Estimate Adequate, Platelet Morphology Normal, Anisocytosis 1+, Sodium Level 146H, Potassium Level 4.2, Chloride Level 107, Carbon Dioxide Level 36H, Anion Gap 3L , Blood Urea Nitrogen 31H, Creatinine 0.7, Estimat Glomerular Filtration Rate , Glucose Level 121H, Calcium Level 8.7 Height (Feet): 4 Height (Inches): 0.00 Weight (Pounds): 98 General Appearance: WD/WN EENT: PERRL/EOMI Neck: non-tender, normal alignment Cardiovascular: normal peripheral pulses, normal rate Respiratory/Chest: chest wall non-tender, lungs clear Abdomen: normal bowel sounds, non tender, soft Edema: no edema noted Arm (L), no edema noted Arm (R), no edema noted Leg (L), no edema noted Leg (R), no edema noted Pedal (L), no edema noted Pedal (R), no edema noted Generalized Jorge Graf M.D. Mar 07, 2018 09:30
--- NOTE | 2018-03-07 14:00 | Cardiology Progress Note ---
Assessment/Plan Status: stable Assessment/Plan Assessment/Plan Assessment/Plan 1. Paroxysmal atrial fibrillation. In SR on digoxin 0.125 mg daily and Cardizem 30 tid. Off anticoagulation. Echo Nl EF. 2. Hypertension. On Cardizem 30 tid 3. Respiratory failure, on Vent now in ICU 4. Diabetes, on insulin. 5. Dementia. 6. Dysphagia, status post PEG 7. Sacral decubitus stage III. FU by Dr. Austin. 8. CVA with aphasia and contractures. 9. Trach for prolonged intubation Subjective Cardiovascular: Reports: no symptoms Respiratory: Reports: no symptoms Gastrointestinal/Abdominal: Reports: no symptoms Genitourinary: Reports: no symptoms Subjective Pt in no acute distress. Opens eyes spontaneously and withdraws to pain. Non verbal. Remains orally intubated, with fiO2 of 50%, saturating 96-98%. Vent settings A/C 15, Vt 450, FI02 80%, PEEP +5 Objective Last 24 Hour Vital Signs Date Time Temp Pulse Resp B/P (MAP) Pulse Ox O2 Delivery O2 Flow Rate FiO2 03/07/18 13:22 73 116/55 03/07/18 13:08 73 18 80 03/07/18 13:00 75 17 116/55 (75) 100 03/07/18 12:00 80 03/07/18 12:00 96.5 76 19 124/55 (78) 100 96.5 03/07/18 12:00 Mechanical Ventilator 03/07/18 11:00 72 18 116/53 (74) 100 03/07/18 10:30 68 16 80 03/07/18 10:00 70 19 105/51 (69) 100 03/07/18 09:15 69 18 80 03/07/18 09:00 70 17 113/62 (79) 100 03/07/18 08:29 69 03/07/18 08:00 80 03/07/18 08:00 68 03/07/18 08:00 97.5 69 18 108/59 (75) 100 97.5 03/07/18 08:00 Mechanical Ventilator 03/07/18 07:00 69 16 100/55 (70) 100 03/07/18 06:43 68 16 80 03/07/18 06:00 71 17 103/57 (72) 100 03/07/18 05:18 70 107/55 03/07/18 05:00 68 14 105/55 (72) 100 03/07/18 04:49 73 20 90 03/07/18 04:00 91 03/07/18 04:00 Mechanical Ventilator 03/07/18 04:00 97.7 70 19 100/56 (71) 100 97.7 03/07/18 04:00 90 03/07/18 03:29 71 17 90 03/07/18 03:00 72 18 105/56 (72) 100 03/07/18 02:00 71 17 100/51 (67) 100 03/07/18 01:00 74 18 98/51 (67) 100 03/07/18 00:50 73 19 90 03/07/18 00:00 89 03/07/18 00:00 97.1 74 27 94/55 (68) 100 97.1 03/07/18 00:00 100 03/07/18 00:00 Mechanical Ventilator 03/06/18 23:05 80 19 100 03/06/18 23:00 88 28 117/69 (85) 100 03/06/18 22:00 92 98/62 03/06/18 22:00 93 23 117/59 (78) 99 03/06/18 21:00 105 22 98/61 (73) 98 03/06/18 20:59 101 26 100 03/06/18 20:00 99.3 114 25 117/81 (93) 93 99.3 03/06/18 20:00 114 03/06/18 20:00 100 03/06/18 20:00 Mechanical Ventilator 03/06/18 19:07 93 26 100 03/06/18 19:00 113 20 133/83 (100) 94 03/06/18 18:00 99.9 97 25 135/68 (90) 94 99.9 03/06/18 17:11 93 26 100 03/06/18 17:00 88 23 127/61 (83) 94 03/06/18 16:00 83 17 121/77 (92) 96 03/06/18 16:00 Mechanical Ventilator 03/06/18 16:00 100 03/06/18 15:20 80 03/06/18 15:12 78 24 100 03/06/18 15:00 78 17 117/62 (80) 94 General Appearance: no apparent distress, on vent EENT: PERRL/EOMI Neck: non-tender Rhythm: NSR Cardiovascular: normal peripheral pulses, normal rate Respiratory/Chest: chest wall non-tender Abdomen: normal bowel sounds Extremities: normal range of motion Neurologic: teaching artist II-XII grossly normal Intake and Output 03/06/18 03/07/18 19:00 07:00 Intake Total 802 ml 1295 ml Output Total 520 ml 320 ml Balance 282 ml 975 ml Free Water 50 ml 200 ml IV Total 112 ml 440 ml Tube Feeding 540 ml 585 ml Other 100 ml 70 ml Output Urine Total 520 ml 320 ml # Bowel Movements 1 2 Laboratory Tests Test 03/07/18 03:56 White Blood Count 19.3 K/UL (4.8-10.8) H Red Blood Count 3.82 M/UL (4.20-5.40) L Hemoglobin 10.4 G/DL (12.0-16.0) L Hematocrit 33.4 % (37.0-47.0) L Mean Corpuscular Volume 88 FL (80-99) Mean Corpuscular Hemoglobin 27.2 PG (27.0-31.0) Mean Corpuscular Hemoglobin Concent 31.1 G/DL (32.0-36.0) L Red Cell Distribution Width 16.2 % (11.6-14.8) H Platelet Count 439 K/UL (150-450) Mean Platelet Volume 8.2 FL (6.5-10.1) Neutrophils (%) (Auto) % (45.0-75.0) Lymphocytes (%) (Auto) % (20.0-45.0) Monocytes (%) (Auto) % (1.0-10.0) Eosinophils (%) (Auto) % (0.0-3.0) Basophils (%) (Auto) % (0.0-2.0) Differential Total Cells Counted 100 Neutrophils % (Manual) 86 % (45-75) H Lymphocytes % (Manual) 12 % (20-45) L Monocytes % (Manual) 2 % (1-10) Eosinophils % (Manual) 0 % (0-3) Basophils % (Manual) 0 % (0-2) Band Neutrophils 0 % (0-8) Platelet Estimate Adequate Platelet Morphology Normal Anisocytosis 1+ Sodium Level 146 MMOL/L (136-145) H Potassium Level 4.2 MMOL/L (3.5-5.1) Chloride Level 107 MMOL/L (98-107) Carbon Dioxide Level 36 MMOL/L (21-32) H Anion Gap 3 mmol/L (5-15) L Blood Urea Nitrogen 31 mg/dL (7-18) H Creatinine 0.7 MG/DL (0.55-1.30) Estimat Glomerular Filtration Rate mL/min (>60) Glucose Level 121 MG/DL (74-106) H Calcium Level 8.7 MG/DL (8.5-10.1) Microbiology Date/Time Source Procedure Growth Status 03/05/18 04:30 Sputum Expectorated Gram Stain - Final Resulted 03/05/18 04:30 Sputum Culture - Preliminary A.baumanii Complx - Mdr Resulted Maxx Ureña M.D. Mar 07, 2018 14:00
--- NOTE | 2018-03-07 15:52 | Infectious Diseases Prog Note ---
Assessment/Plan Problems: (1) HCAP (healthcare-associated pneumonia) Assessment & Plan: S/P intubation due to worsening respiratory failure . on meropenem empiric coverage for pneumonia , repeated sputum culture grew MDR acinetobacter baumannii , most likely contaminant since she is not febrile with no increase in her secretions, will repeat CXR to rule out any worsening pneumonia . pulmonary is following. (2) Leukocytosis Assessment & Plan: suspect reactive with negative repeated blood culture , continue meropenem for now , and tylenol as needed . S/P Sarkar exchange . 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 continue local wound care and dressing changes as per hospital protocol . followed by general surgery. already on meropenem (4) Acute respiratory failure Assessment & Plan: now chronic and ventilator dependant , pulmonary is following, monitor CXR and ABG . she may need tracheostomy (5) Low grade fever Assessment & Plan: resolved , possible due to urine infection , S/P sarkar catheter change, already on meropenem , repeated blood culture is negative . repeated CXR showed improvement in her aeration . await sputum culture continue tylenol as needed Subjective ROS Limited/Unobtainable: Yes Allergies: Coded Allergies: No Known Allergies (Verified , 03/10/07) Subjective she is still intubated on mechanical ventilation, in ICU, not alert , no fever, no chills , no diarrhea . sarkar catheter was changed Objective Vital Signs Last 24 Hour Vital Signs Date Time Temp Pulse Resp B/P (MAP) Pulse Ox O2 Delivery O2 Flow Rate FiO2 03/07/18 14:00 76 17 113/49 (70) 95 03/07/18 13:22 73 116/55 03/07/18 13:08 73 18 80 03/07/18 13:00 75 17 116/55 (75) 100 03/07/18 12:00 80 03/07/18 12:00 96.5 76 19 124/55 (78) 100 96.5 03/07/18 12:00 71 03/07/18 12:00 Mechanical Ventilator 03/07/18 11:00 72 18 116/53 (74) 100 03/07/18 10:30 68 16 80 03/07/18 10:00 70 19 105/51 (69) 100 03/07/18 09:15 69 18 80 03/07/18 09:00 70 17 113/62 (79) 100 03/07/18 08:29 69 03/07/18 08:00 80 03/07/18 08:00 68 03/07/18 08:00 97.5 69 18 108/59 (75) 100 97.5 03/07/18 08:00 Mechanical Ventilator 03/07/18 07:00 69 16 100/55 (70) 100 03/07/18 06:43 68 16 80 03/07/18 06:00 71 17 103/57 (72) 100 03/07/18 05:18 70 107/55 03/07/18 05:00 68 14 105/55 (72) 100 03/07/18 04:49 73 20 90 03/07/18 04:00 91 03/07/18 04:00 Mechanical Ventilator 03/07/18 04:00 97.7 70 19 100/56 (71) 100 97.7 03/07/18 04:00 90 03/07/18 03:29 71 17 90 03/07/18 03:00 72 18 105/56 (72) 100 03/07/18 02:00 71 17 100/51 (67) 100 03/07/18 01:00 74 18 98/51 (67) 100 03/07/18 00:50 73 19 90 03/07/18 00:00 89 03/07/18 00:00 97.1 74 27 94/55 (68) 100 97.1 03/07/18 00:00 100 03/07/18 00:00 Mechanical Ventilator 03/06/18 23:05 80 19 100 03/06/18 23:00 88 28 117/69 (85) 100 03/06/18 22:00 92 98/62 03/06/18 22:00 93 23 117/59 (78) 99 03/06/18 21:00 105 22 98/61 (73) 98 03/06/18 20:59 101 26 100 03/06/18 20:00 99.3 114 25 117/81 (93) 93 99.3 03/06/18 20:00 114 03/06/18 20:00 100 03/06/18 20:00 Mechanical Ventilator 03/06/18 19:07 93 26 100 03/06/18 19:00 113 20 133/83 (100) 94 03/06/18 18:00 99.9 97 25 135/68 (90) 94 99.9 03/06/18 17:11 93 26 100 03/06/18 17:00 88 23 127/61 (83) 94 03/06/18 16:00 83 17 121/77 (92) 96 03/06/18 16:00 Mechanical Ventilator 03/06/18 16:00 100 Height (Feet): 4 Height (Inches): 0.00 Weight (Pounds): 98 General Appearance: WD/WN, no acute distress, cachetic HEENT: normocephalic, atraumatic, anicteric, mucous membranes moist, supple, no JVD Respiratory/Chest: chest wall non-tender, no respiratory distress, no accessory muscle use, decreased breath sounds, expiratory wheezing Cardiovascular: normal peripheral pulses, normal rate, regular rhythm, no gallop/murmur, no JVD Abdomen: normal bowel sounds, soft, non tender, no organomegaly, non distended , no mass, no scars Extremities: no cyanosis, no clubbing Skin: no rash, no lesions, ulcers Neurologic/Psychiatric: alert, unresponsiveness Microbiology Date/Time Source Procedure Growth Status 03/05/18 04:30 Sputum Expectorated Gram Stain - Final Resulted 03/05/18 04:30 Sputum Culture - Preliminary A.baumanii Complx - Mdr Resulted Laboratory Tests Test 03/07/18 03:56 White Blood Count 19.3 K/UL (4.8-10.8) H Red Blood Count 3.82 M/UL (4.20-5.40) L Hemoglobin 10.4 G/DL (12.0-16.0) L Hematocrit 33.4 % (37.0-47.0) L Mean Corpuscular Volume 88 FL (80-99) Mean Corpuscular Hemoglobin 27.2 PG (27.0-31.0) Mean Corpuscular Hemoglobin Concent 31.1 G/DL (32.0-36.0) L Red Cell Distribution Width 16.2 % (11.6-14.8) H Platelet Count 439 K/UL (150-450) Mean Platelet Volume 8.2 FL (6.5-10.1) Neutrophils (%) (Auto) % (45.0-75.0) Lymphocytes (%) (Auto) % (20.0-45.0) Monocytes (%) (Auto) % (1.0-10.0) Eosinophils (%) (Auto) % (0.0-3.0) Basophils (%) (Auto) % (0.0-2.0) Differential Total Cells Counted 100 Neutrophils % (Manual) 86 % (45-75) H Lymphocytes % (Manual) 12 % (20-45) L Monocytes % (Manual) 2 % (1-10) Eosinophils % (Manual) 0 % (0-3) Basophils % (Manual) 0 % (0-2) Band Neutrophils 0 % (0-8) Platelet Estimate Adequate Platelet Morphology Normal Anisocytosis 1+ Sodium Level 146 MMOL/L (136-145) H Potassium Level 4.2 MMOL/L (3.5-5.1) Chloride Level 107 MMOL/L (98-107) Carbon Dioxide Level 36 MMOL/L (21-32) H Anion Gap 3 mmol/L (5-15) L Blood Urea Nitrogen 31 mg/dL (7-18) H Creatinine 0.7 MG/DL (0.55-1.30) Estimat Glomerular Filtration Rate mL/min (>60) Glucose Level 121 MG/DL (74-106) H Calcium Level 8.7 MG/DL (8.5-10.1) Current Medications Medications (Trade) Dose Ordered Sig/Rosetta Route PRN Reason Start Time Stop Time Status Last Admin Dose Admin Acetaminophen (Tylenol) 650 mg Q4H PRN GT Mild Pain/Temp > 100.5 02/22/18 08:00 03/10/18 15:59 03/06/18 21:59 Artificial Tears (Akwa-Tears) 2 drop Q2HR PRN BOTH EYES Dry Eyes 03/04/18 19:30 04/03/18 19:29 Ascorbic Acid (Vitamin C) 500 mg DAILY GT 03/08/18 09:00 04/07/18 08:59 Clonidine HCl (Catapres Tab) 0.1 mg Q8H PRN GT SBP >160 02/22/18 09:00 03/09/18 16:59 Dextrose (Dextrose 50%) 25 ml STAT PRN IV Hypoglycemia 02/22/18 16:00 03/11/18 15:59 Dextrose (Dextrose 50%) 50 ml STAT PRN IV Hypoglycemia 02/22/18 16:00 03/11/18 15:59 Digoxin (Lanoxin) 0.125 mg DAILY GT 03/08/18 09:00 04/07/18 08:59 Diltiazem HCl (Cardizem) 90 mg EVERY 8 HOURS ORAL 02/26/18 22:00 03/12/18 21:59 03/07/18 13:22 Enoxaparin Sodium (Lovenox) 30 mg Q24H SUBQ 02/22/18 09:00 03/13/18 08:59 03/07/18 08:30 Famotidine (Pepcid) 20 mg DAILY GT 02/22/18 09:00 03/10/18 08:59 03/07/18 08:29 Meropenem 1 gm/ Sodium Chloride 110 ml @ 220 mls/hr Q12HR@0600,1800 IVPB 02/22/18 18:00 03/09/18 17:59 03/07/18 05:17 Dom Hoffman M.D. Mar 07, 2018 15:52
[2018-03-07] MEDS: Acetaminophen 650mg/20.3ml GT PRN (21:32)
[2018-03-08] VITALS (24 sets, daily range): BP systolic 99–141; BP diastolic 49–81
[2018-03-08 06:02] LABS: HEMATOCRIT 33.7 % (37.0-47.0); HEMOGLOBIN 10.6 G/DL (12.0-16.0); MEAN CORPUSCULAR VOLUME 87 FL (80-99); PLATELET COUNT 474 K/UL (150-450); RED BLOOD COUNT 3.87 M/UL (4.20-5.40); RED CELL DISTRIBUTION WIDTH 16.3 % (11.6-14.8); WHITE BLOOD COUNT 16.8 K/UL (4.8-10.8)
[2018-03-08] MEDS: Meropenem 1 GM in NS 110 ML IVPB SCH ×2 (06:11→17:08)
[2018-03-08] MEDS: NovoLOG Insulin Flexpen SUBQ SCH ×4 (06:12→21:00)
[2018-03-08] MEDS: dilTIAZem HCl 90mg tab ORAL SCH (06:12)
[2018-03-08 06:25] LABS: ALANINE AMINOTRANSFERASE 30 U/L (12-78); ALBUMIN 1.4 G/DL (3.4-5.0); ALBUMIN/GLOBULIN RATIO 0.2 (1.0-2.7); ALKALINE PHOSPHATASE 108 U/L (46-116); ANION GAP 2 mmol/L (5-15); ASPARTATE AMINO TRANSFERASE 24 U/L (15-37); BILIRUBIN,TOTAL 0.2 MG/DL (0.2-1.0); BLOOD UREA NITROGEN 28 mg/dL (7-18); CALCIUM 8.8 MG/DL (8.5-10.1); CARBON DIOXIDE 37 MMOL/L (21-32); CHLORIDE 111 MMOL/L (98-107); CREATININE 0.5 MG/DL (0.55-1.30); POTASSIUM 4.2 MMOL/L (3.5-5.1); SODIUM 150 MMOL/L (136-145)
[2018-03-08] MEDS: Enoxaparin 30mg Inj SUBQ SCH (08:06)
[2018-03-08] MEDS: Digoxin 0.125mg tab GT SCH (08:07)
[2018-03-08] MEDS: Ascorbic Acid 500mg tab GT SCH (08:07)
--- NOTE | 2018-03-08 08:13 | Nephrology Progress Note ---
Assessment/Plan Assessment/Plan 1. Sepsis - Abx continue 2. Sacral Decub- Gen Surg mgmt/wound care 3. Hyernatremia- increase free water thru GTube 4. Resp FL- Patient intubated - patient requiring emergent trach as she has been intubated for a prolonged time and no clear possible of being extubated anytime soon - awaiting court decision as sand polisher evaluated patient this past weekend 5. AFib- digoxin + cardizem 6. DVT prophylaxis- lovenox Subjective Date patient seen: Mar 08, 2018 Time patient seen: 08:10 ROS Limited/Unobtainable: Yes Allergies: Coded Allergies: No Known Allergies (Verified , 03/10/07) Subjective Patient remains intubated and awaiting court ruling Objective Last 24 Hour Vital Signs Date Time Temp Pulse Resp B/P (MAP) Pulse Ox O2 Delivery O2 Flow Rate FiO2 03/08/18 08:07 76 03/08/18 08:00 97.9 76 22 107/54 (71) 96 97.9 03/08/18 08:00 50 03/08/18 07:00 79 15 99/53 (68) 99 03/08/18 06:55 73 21 50 03/08/18 06:12 86 129/63 03/08/18 06:00 77 21 129/63 (85) 98 03/08/18 05:00 77 18 101/49 (66) 100 03/08/18 04:40 83 26 80 03/08/18 04:01 88 03/08/18 04:00 Mechanical Ventilator 03/08/18 04:00 97.5 85 18 121/62 (81) 95 97.5 03/08/18 04:00 80 03/08/18 03:28 88 24 80 03/08/18 03:00 87 18 128/56 (80) 98 03/08/18 02:00 73 18 117/64 (81) 98 03/08/18 01:08 79 17 80 03/08/18 01:00 72 18 118/54 (75) 98 03/08/18 00:01 80 03/08/18 00:00 Mechanical Ventilator 03/08/18 00:00 60 03/08/18 00:00 98.3 77 18 108/50 (69) 98 98.3 03/07/18 23:00 76 18 112/52 (72) 98 03/07/18 22:47 79 21 60 03/07/18 22:00 80 18 119/55 (76) 99 03/07/18 21:32 87 128/57 03/07/18 21:14 82 23 60 03/07/18 21:00 82 18 110/53 (72) 97 03/07/18 20:00 60 03/07/18 20:00 Mechanical Ventilator 03/07/18 20:00 97.8 91 18 114/51 (72) 92 97.8 03/07/18 20:00 65 03/07/18 19:20 80 22 80 03/07/18 19:00 87 16 118/49 (72) 93 03/07/18 18:00 70 16 118/53 (74) 92 03/07/18 17:13 55 21 80 03/07/18 17:00 70 16 112/57 (75) 92 03/07/18 16:00 70 16 105/51 (69) 92 03/07/18 16:00 80 03/07/18 16:00 69 03/07/18 16:00 Mechanical Ventilator 03/07/18 15:00 98.7 69 16 112/52 (72) 100 98.7 03/07/18 14:42 69 16 80 03/07/18 14:00 76 17 113/49 (70) 95 03/07/18 13:22 73 116/55 03/07/18 13:08 73 18 80 03/07/18 13:00 75 17 116/55 (75) 100 03/07/18 12:00 80 03/07/18 12:00 96.5 76 19 124/55 (78) 100 96.5 03/07/18 12:00 71 03/07/18 12:00 Mechanical Ventilator 03/07/18 11:00 72 18 116/53 (74) 100 03/07/18 10:30 68 16 80 03/07/18 10:00 70 19 105/51 (69) 100 03/07/18 09:15 69 18 80 03/07/18 09:00 70 17 113/62 (79) 100 03/07/18 08:29 69 Intake and Output 03/07/18 03/08/18 19:00 07:00 Intake Total 680 ml 840 ml Output Total 425 ml 565 ml Balance 255 ml 275 ml Free Water 100 ml IV Total 110 ml Tube Feeding 540 ml 540 ml Other 30 ml 200 ml Output Urine Total 425 ml 565 ml # Bowel Movements 4 5 Laboratory Tests 03/08/18 05:48: White Blood Count 16.8H, Red Blood Count 3.87L, Hemoglobin 10.6L, Hematocrit 33.7L, Mean Corpuscular Volume 87, Mean Corpuscular Hemoglobin 27.3, Mean Corpuscular Hemoglobin Concent 31.4L, Red Cell Distribution Width 16.3H, Platelet Count 474H, Mean Platelet Volume 9.1, Neutrophils (%) (Auto) , Lymphocytes (%) (Auto) , Monocytes (%) (Auto) , Eosinophils (%) (Auto) , Basophils (%) (Auto) , Neutrophils % (Manual) [Pending], Lymphocytes % (Manual) [Pending], Platelet Estimate [Pending], Platelet Morphology [Pending], Sodium Level 150H, Potassium Level 4.2, Chloride Level 111H, Carbon Dioxide Level 37H, Anion Gap 2L, Blood Urea Nitrogen 28H, Creatinine 0.5L, Estimat Glomerular Filtration Rate , Glucose Level 103, Calcium Level 8.8, Total Bilirubin 0.2, Aspartate Amino Transf (AST/SGOT) 24, Alanine Aminotransferase (ALT/SGPT) 30, Alkaline Phosphatase 108, Total Protein 7.3, Albumin 1.4L, Globulin 5.9, Albumin /Globulin Ratio 0.2L Height (Feet): 4 Height (Inches): 0.00 Weight (Pounds): 93 General Appearance: WD/WN, no apparent distress EENT: PERRL/EOMI Neck: non-tender, normal alignment Cardiovascular: normal peripheral pulses, normal rate Respiratory/Chest: chest wall non-tender, lungs clear Abdomen: normal bowel sounds, non tender, soft Edema: no edema noted Arm (L), no edema noted Arm (R), no edema noted Leg (L), no edema noted Leg (R), no edema noted Pedal (L), no edema noted Pedal (R), no edema noted Generalized Jorge Graf M.D. Mar 08, 2018 08:13
--- NOTE | 2018-03-08 09:38 | Pulmonology Progress Note ---
Assessment/Plan Assessment/Plan IMPRESSION: 1. Bilateral pneumonia. Last CXR on shows left basilar pneumonia 2. Respiratory failure; intubated; remains hypoxemic with 80% FiO2 3. Hypertension. 4. Diabetes mellitus. 5. Dehydration, hypernatremia 6. Tardive dyskinesia 7. Anemia DISCUSSION: Will check CXR Discussed with PMD Will need trach Continue vent Unable to wean Await bioethics eval to allow 2 physician consent for trach as there is risk of grave injury if trach not performed soon Seen also by trim die maker re:DNR Subjective Interval Events: No change, on 80% FiO2; CXRdone today Constitutional: Reports: no symptoms HEENT: Repors: no symptoms Respiratory: Reports: no symptoms Cardiovascular: Reports: no symptoms Gastrointestinal/Abdominal: Reports: no symptoms Genitourinary: Reports: no symptoms Allergies: Coded Allergies: No Known Allergies (Verified , 03/10/07) Objective Last 24 Hour Vital Signs Date Time Temp Pulse Resp B/P (MAP) Pulse Ox O2 Delivery O2 Flow Rate FiO2 03/08/18 08:55 80 03/08/18 08:07 76 03/08/18 08:00 Mechanical Ventilator 03/08/18 08:00 97.9 76 22 107/54 (71) 96 97.9 03/08/18 08:00 50 03/08/18 07:57 76 03/08/18 07:00 79 15 99/53 (68) 99 03/08/18 06:55 73 21 50 03/08/18 06:12 86 129/63 03/08/18 06:00 77 21 129/63 (85) 98 03/08/18 05:00 77 18 101/49 (66) 100 03/08/18 04:40 83 26 80 03/08/18 04:01 88 03/08/18 04:00 Mechanical Ventilator 03/08/18 04:00 97.5 85 18 121/62 (81) 95 97.5 03/08/18 04:00 80 03/08/18 03:28 88 24 80 03/08/18 03:00 87 18 128/56 (80) 98 03/08/18 02:00 73 18 117/64 (81) 98 03/08/18 01:08 79 17 80 03/08/18 01:00 72 18 118/54 (75) 98 03/08/18 00:01 80 03/08/18 00:00 Mechanical Ventilator 03/08/18 00:00 60 03/08/18 00:00 98.3 77 18 108/50 (69) 98 98.3 03/07/18 23:00 76 18 112/52 (72) 98 03/07/18 22:47 79 21 60 03/07/18 22:00 80 18 119/55 (76) 99 03/07/18 21:32 87 128/57 03/07/18 21:14 82 23 60 03/07/18 21:00 82 18 110/53 (72) 97 03/07/18 20:00 60 03/07/18 20:00 Mechanical Ventilator 03/07/18 20:00 97.8 91 18 114/51 (72) 92 97.8 03/07/18 20:00 65 03/07/18 19:20 80 22 80 03/07/18 19:00 87 16 118/49 (72) 93 03/07/18 18:00 70 16 118/53 (74) 92 03/07/18 17:13 55 21 80 03/07/18 17:00 70 16 112/57 (75) 92 03/07/18 16:00 70 16 105/51 (69) 92 03/07/18 16:00 80 03/07/18 16:00 69 03/07/18 16:00 Mechanical Ventilator 03/07/18 15:00 98.7 69 16 112/52 (72) 100 98.7 03/07/18 14:42 69 16 80 03/07/18 14:00 76 17 113/49 (70) 95 03/07/18 13:22 73 116/55 03/07/18 13:08 73 18 80 03/07/18 13:00 75 17 116/55 (75) 100 03/07/18 12:00 80 03/07/18 12:00 96.5 76 19 124/55 (78) 100 96.5 03/07/18 12:00 71 03/07/18 12:00 Mechanical Ventilator 03/07/18 11:00 72 18 116/53 (74) 100 03/07/18 10:30 68 16 80 03/07/18 10:00 70 19 105/51 (69) 100 Intake and Output 03/07/18 03/08/18 19:00 07:00 Intake Total 680 ml 840 ml Output Total 425 ml 565 ml Balance 255 ml 275 ml Free Water 100 ml IV Total 110 ml Tube Feeding 540 ml 540 ml Other 30 ml 200 ml Output Urine Total 425 ml 565 ml # Bowel Movements 4 5 General Appearance: no acute distress HEENT: normocephalic Respiratory/Chest: chest wall non-tender, decreased breath sounds Cardiovascular: normal peripheral pulses, normal rate Abdomen: normal bowel sounds Laboratory Tests 03/08/18 05:48: White Blood Count 16.8H, Red Blood Count 3.87L, Hemoglobin 10.6L, Hematocrit 33.7L, Mean Corpuscular Volume 87, Mean Corpuscular Hemoglobin 27.3, Mean Corpuscular Hemoglobin Concent 31.4L, Red Cell Distribution Width 16.3H, Platelet Count 474H, Mean Platelet Volume 9.1, Neutrophils (%) (Auto) , Lymphocytes (%) (Auto) , Monocytes (%) (Auto) , Eosinophils (%) (Auto) , Basophils (%) (Auto) , Differential Total Cells Counted 100, Neutrophils % ( Manual) 85H, Lymphocytes % (Manual) 11L, Monocytes % (Manual) 3, Eosinophils % ( Manual) 0, Basophils % (Manual) 0, Band Neutrophils 1, Platelet Estimate Adequate, Platelet Morphology Normal, Anisocytosis 1+, Sodium Level 150H, Potassium Level 4.2, Chloride Level 111H, Carbon Dioxide Level 37H, Anion Gap 2L , Blood Urea Nitrogen 28H, Creatinine 0.5L, Estimat Glomerular Filtration Rate , Glucose Level 103, Calcium Level 8.8, Total Bilirubin 0.2, Aspartate Amino Transf (AST/SGOT) 24, Alanine Aminotransferase (ALT/SGPT) 30, Alkaline Phosphatase 108, Total Protein 7.3, Albumin 1.4L, Globulin 5.9, Albumin/ Globulin Ratio 0.2L Current Medications Medications (Trade) Dose Ordered Sig/Rosetta Route PRN Reason Start Time Stop Time Status Last Admin Dose Admin Acetaminophen (Tylenol) 650 mg Q4H PRN GT Mild Pain/Temp > 100.5 02/22/18 08:00 03/10/18 15:59 03/07/18 21:32 Artificial Tears (Akwa-Tears) 2 drop Q2HR PRN BOTH EYES Dry Eyes 03/04/18 19:30 04/03/18 19:29 Ascorbic Acid (Vitamin C) 500 mg DAILY GT 03/08/18 09:00 04/07/18 08:59 03/08/18 08:07 Clonidine HCl (Catapres Tab) 0.1 mg Q8H PRN GT SBP >160 02/22/18 09:00 03/09/18 16:59 Dextrose (Dextrose 50%) 25 ml STAT PRN IV Hypoglycemia 03/07/18 17:00 04/06/18 16:59 Dextrose (Dextrose 50%) 50 ml STAT PRN IV Hypoglycemia 03/07/18 17:00 04/06/18 16:59 Digoxin (Lanoxin) 0.125 mg DAILY GT 03/08/18 09:00 04/07/18 08:59 03/08/18 08:07 Diltiazem HCl (Cardizem) 90 mg EVERY 8 HOURS GT 03/08/18 14:00 03/12/18 21:59 Enoxaparin Sodium (Lovenox) 30 mg Q24H SUBQ 02/22/18 09:00 03/13/18 08:59 03/08/18 08:06 Famotidine (Pepcid) 20 mg DAILY GT 02/22/18 09:00 03/10/18 08:59 03/08/18 08:06 Insulin Aspart (NovoLOG) BEFORE MEALS AND HS SUBQ 03/07/18 21:00 04/06/18 20:59 Meropenem 1 gm/ Sodium Chloride 110 ml @ 220 mls/hr Q12HR@0600,1800 IVPB 02/22/18 18:00 03/09/18 17:59 03/08/18 06:11 Jan Sawant MD Mar 08, 2018 09:38
[2018-03-08] MEDS ORDERED: NS 275ml ONE (10:24)
[2018-03-08] MEDS ORDERED: Sterile Water Irrig 1000ml IRRIG ONE ×2 (10:24→10:26)
[2018-03-08] MEDS ORDERED: Tubing IV Secondary IV ONE (10:26)
[2018-03-08] MEDS ORDERED: LORazepam 1mg tab GT PRN (11:46)
--- NOTE | 2018-03-08 12:09 | General Progress Note ---
Assessment/Plan Assessment/Plan Dementia encephalopathy the pt lacks capacity to make decisions haldol prn ativan gt prn Subjective Date patient seen: Mar 08, 2018 Neurologic/Psychiatric: Reports: anxiety Allergies: Coded Allergies: No Known Allergies (Verified , 03/10/07) Subjective the pt is confused lethargic. the pt has severe cognitive impairment. the pt agitated Objective Last 24 Hour Vital Signs Date Time Temp Pulse Resp B/P (MAP) Pulse Ox O2 Delivery O2 Flow Rate FiO2 03/08/18 12:00 Mechanical Ventilator 03/08/18 12:00 80 03/08/18 12:00 97.9 79 22 129/65 (86) 100 97.9 03/08/18 11:30 83 21 80 03/08/18 11:00 91 21 136/66 (89) 94 03/08/18 10:00 79 16 122/56 (78) 98 03/08/18 09:25 86 20 80 03/08/18 09:00 87 15 113/55 (74) 96 03/08/18 08:55 80 03/08/18 08:07 76 03/08/18 08:00 Mechanical Ventilator 03/08/18 08:00 97.9 76 22 107/54 (71) 96 97.9 03/08/18 08:00 50 03/08/18 07:57 76 03/08/18 07:00 79 15 99/53 (68) 99 03/08/18 06:55 73 21 50 03/08/18 06:12 86 129/63 03/08/18 06:00 77 21 129/63 (85) 98 03/08/18 05:00 77 18 101/49 (66) 100 03/08/18 04:40 83 26 80 03/08/18 04:01 88 03/08/18 04:00 Mechanical Ventilator 03/08/18 04:00 97.5 85 18 121/62 (81) 95 97.5 03/08/18 04:00 80 03/08/18 03:28 88 24 80 03/08/18 03:00 87 18 128/56 (80) 98 03/08/18 02:00 73 18 117/64 (81) 98 03/08/18 01:08 79 17 80 03/08/18 01:00 72 18 118/54 (75) 98 03/08/18 00:01 80 03/08/18 00:00 Mechanical Ventilator 03/08/18 00:00 60 03/08/18 00:00 98.3 77 18 108/50 (69) 98 98.3 03/07/18 23:00 76 18 112/52 (72) 98 03/07/18 22:47 79 21 60 03/07/18 22:00 80 18 119/55 (76) 99 03/07/18 21:32 87 128/57 03/07/18 21:14 82 23 60 03/07/18 21:00 82 18 110/53 (72) 97 03/07/18 20:00 60 03/07/18 20:00 Mechanical Ventilator 03/07/18 20:00 97.8 91 18 114/51 (72) 92 97.8 03/07/18 20:00 65 03/07/18 19:20 80 22 80 03/07/18 19:00 87 16 118/49 (72) 93 03/07/18 18:00 70 16 118/53 (74) 92 03/07/18 17:13 55 21 80 03/07/18 17:00 70 16 112/57 (75) 92 03/07/18 16:00 70 16 105/51 (69) 92 03/07/18 16:00 80 03/07/18 16:00 69 03/07/18 16:00 Mechanical Ventilator 03/07/18 15:00 98.7 69 16 112/52 (72) 100 98.7 03/07/18 14:42 69 16 80 03/07/18 14:00 76 17 113/49 (70) 95 03/07/18 13:22 73 116/55 03/07/18 13:08 73 18 80 03/07/18 13:00 75 17 116/55 (75) 100 Intake and Output 03/07/18 03/08/18 19:00 07:00 Intake Total 680 ml 840 ml Output Total 425 ml 565 ml Balance 255 ml 275 ml Free Water 100 ml IV Total 110 ml Tube Feeding 540 ml 540 ml Other 30 ml 200 ml Output Urine Total 425 ml 565 ml # Bowel Movements 4 5 Laboratory Tests 03/08/18 05:48: White Blood Count 16.8H, Red Blood Count 3.87L, Hemoglobin 10.6L, Hematocrit 33.7L, Mean Corpuscular Volume 87, Mean Corpuscular Hemoglobin 27.3, Mean Corpuscular Hemoglobin Concent 31.4L, Red Cell Distribution Width 16.3H, Platelet Count 474H, Mean Platelet Volume 9.1, Neutrophils (%) (Auto) , Lymphocytes (%) (Auto) , Monocytes (%) (Auto) , Eosinophils (%) (Auto) , Basophils (%) (Auto) , Differential Total Cells Counted 100, Neutrophils % ( Manual) 85H, Lymphocytes % (Manual) 11L, Monocytes % (Manual) 3, Eosinophils % ( Manual) 0, Basophils % (Manual) 0, Band Neutrophils 1, Platelet Estimate Adequate, Platelet Morphology Normal, Anisocytosis 1+, Sodium Level 150H, Potassium Level 4.2, Chloride Level 111H, Carbon Dioxide Level 37H, Anion Gap 2L , Blood Urea Nitrogen 28H, Creatinine 0.5L, Estimat Glomerular Filtration Rate , Glucose Level 103, Calcium Level 8.8, Total Bilirubin 0.2, Aspartate Amino Transf (AST/SGOT) 24, Alanine Aminotransferase (ALT/SGPT) 30, Alkaline Phosphatase 108, Total Protein 7.3, Albumin 1.4L, Globulin 5.9, Albumin/ Globulin Ratio 0.2L Height (Feet): 4 Height (Inches): 0.00 Weight (Pounds): 93 General Appearance: lethargic, confused, agitated Darling Baker MD Mar 08, 2018 12:09
[2018-03-08] MEDS: dilTIAZem HCl 90mg tab GT SCH ×2 (13:25→21:57)
--- NOTE | 2018-03-08 13:49 | Cardiology Progress Note ---
Assessment/Plan Status: stable Assessment/Plan Assessment/Plan Assessment/Plan 1. Paroxysmal atrial fibrillation. In SR on digoxin 0.125 mg daily and Cardizem 30 tid. Off anticoagulation. Echo Nl EF. 2. Hypertension. On Cardizem 30 tid 3. Respiratory failure, on Vent now in ICU 4. Diabetes, on insulin. 5. Dementia. 6. Dysphagia, status post PEG 7. Sacral decubitus stage III. FU by Dr. Austin. 8. CVA with aphasia and contractures. 9. Trach for prolonged intubation Subjective ROS Limited/Unobtainable: Yes Cardiovascular: Reports: no symptoms Respiratory: Reports: no symptoms Gastrointestinal/Abdominal: Reports: no symptoms Genitourinary: Reports: no symptoms Subjective Patient lethargic, open eyes, on ETT to vent ac 15/tv450/fio2 60%/ peep5, o2 saturation 93% noted, abdomen soft, g tube intact Tube feeds of Glucerna at 45ml /hr Objective Last 24 Hour Vital Signs Date Time Temp Pulse Resp B/P (MAP) Pulse Ox O2 Delivery O2 Flow Rate FiO2 03/08/18 13:25 81 131/72 03/08/18 13:00 81 18 131/72 (91) 99 03/08/18 12:33 86 20 80 03/08/18 12:25 86 03/08/18 12:00 Mechanical Ventilator 03/08/18 12:00 80 03/08/18 12:00 97.9 79 22 129/65 (86) 100 97.9 03/08/18 11:30 83 21 80 03/08/18 11:00 91 21 136/66 (89) 94 03/08/18 10:00 79 16 122/56 (78) 98 03/08/18 09:25 86 20 80 03/08/18 09:00 87 15 113/55 (74) 96 03/08/18 08:55 80 03/08/18 08:07 76 03/08/18 08:00 Mechanical Ventilator 03/08/18 08:00 97.9 76 22 107/54 (71) 96 97.9 03/08/18 08:00 50 03/08/18 07:57 76 03/08/18 07:00 79 15 99/53 (68) 99 03/08/18 06:55 73 21 50 03/08/18 06:12 86 129/63 03/08/18 06:00 77 21 129/63 (85) 98 03/08/18 05:00 77 18 101/49 (66) 100 03/08/18 04:40 83 26 80 03/08/18 04:01 88 03/08/18 04:00 Mechanical Ventilator 03/08/18 04:00 97.5 85 18 121/62 (81) 95 97.5 03/08/18 04:00 80 03/08/18 03:28 88 24 80 03/08/18 03:00 87 18 128/56 (80) 98 03/08/18 02:00 73 18 117/64 (81) 98 03/08/18 01:08 79 17 80 03/08/18 01:00 72 18 118/54 (75) 98 03/08/18 00:01 80 03/08/18 00:00 Mechanical Ventilator 03/08/18 00:00 60 03/08/18 00:00 98.3 77 18 108/50 (69) 98 98.3 03/07/18 23:00 76 18 112/52 (72) 98 03/07/18 22:47 79 21 60 03/07/18 22:00 80 18 119/55 (76) 99 03/07/18 21:32 87 128/57 03/07/18 21:14 82 23 60 03/07/18 21:00 82 18 110/53 (72) 97 03/07/18 20:00 60 03/07/18 20:00 Mechanical Ventilator 03/07/18 20:00 97.8 91 18 114/51 (72) 92 97.8 03/07/18 20:00 65 03/07/18 19:20 80 22 80 03/07/18 19:00 87 16 118/49 (72) 93 03/07/18 18:00 70 16 118/53 (74) 92 03/07/18 17:13 55 21 80 03/07/18 17:00 70 16 112/57 (75) 92 03/07/18 16:00 70 16 105/51 (69) 92 03/07/18 16:00 80 03/07/18 16:00 69 03/07/18 16:00 Mechanical Ventilator 03/07/18 15:00 98.7 69 16 112/52 (72) 100 98.7 03/07/18 14:42 69 16 80 03/07/18 14:00 76 17 113/49 (70) 95 General Appearance: no apparent distress, on vent EENT: PERRL/EOMI Neck: non-tender Rhythm: NSR Cardiovascular: normal peripheral pulses Respiratory/Chest: chest wall non-tender Abdomen: normal bowel sounds Extremities: non-tender, no calf tenderness, no swelling 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 Intake and Output 03/07/18 03/08/18 19:00 07:00 Intake Total 680 ml 840 ml Output Total 425 ml 565 ml Balance 255 ml 275 ml Free Water 100 ml IV Total 110 ml Tube Feeding 540 ml 540 ml Other 30 ml 200 ml Output Urine Total 425 ml 565 ml # Bowel Movements 4 5 Laboratory Tests Test 03/08/18 05:48 White Blood Count 16.8 K/UL (4.8-10.8) H Red Blood Count 3.87 M/UL (4.20-5.40) L Hemoglobin 10.6 G/DL (12.0-16.0) L Hematocrit 33.7 % (37.0-47.0) L Mean Corpuscular Volume 87 FL (80-99) Mean Corpuscular Hemoglobin 27.3 PG (27.0-31.0) Mean Corpuscular Hemoglobin Concent 31.4 G/DL (32.0-36.0) L Red Cell Distribution Width 16.3 % (11.6-14.8) H Platelet Count 474 K/UL (150-450) H Mean Platelet Volume 9.1 FL (6.5-10.1) Neutrophils (%) (Auto) % (45.0-75.0) Lymphocytes (%) (Auto) % (20.0-45.0) Monocytes (%) (Auto) % (1.0-10.0) Eosinophils (%) (Auto) % (0.0-3.0) Basophils (%) (Auto) % (0.0-2.0) Differential Total Cells Counted 100 Neutrophils % (Manual) 85 % (45-75) H Lymphocytes % (Manual) 11 % (20-45) L Monocytes % (Manual) 3 % (1-10) Eosinophils % (Manual) 0 % (0-3) Basophils % (Manual) 0 % (0-2) Band Neutrophils 1 % (0-8) Platelet Estimate Adequate Platelet Morphology Normal Anisocytosis 1+ Sodium Level 150 MMOL/L (136-145) H Potassium Level 4.2 MMOL/L (3.5-5.1) Chloride Level 111 MMOL/L (98-107) H Carbon Dioxide Level 37 MMOL/L (21-32) H Anion Gap 2 mmol/L (5-15) L Blood Urea Nitrogen 28 mg/dL (7-18) H Creatinine 0.5 MG/DL (0.55-1.30) L Estimat Glomerular Filtration Rate mL/min (>60) Glucose Level 103 MG/DL (74-106) Calcium Level 8.8 MG/DL (8.5-10.1) Total Bilirubin 0.2 MG/DL (0.2-1.0) Aspartate Amino Transf (AST/SGOT) 24 U/L (15-37) Alanine Aminotransferase (ALT/SGPT) 30 U/L (12-78) Alkaline Phosphatase 108 U/L (46-116) Total Protein 7.3 G/DL (6.4-8.2) Albumin 1.4 G/DL (3.4-5.0) L Globulin 5.9 g/dL Albumin/Globulin Ratio 0.2 (1.0-2.7) L Maxx Ureña M.D. Mar 08, 2018 13:49
--- NOTE | 2018-03-08 15:28 | Diagnostic Imaging Report ---
Indication: Respiratory failure Technique: XRAY Chest 1v Comparison: 03/02/2018 Findings: Endotracheal tube unchanged. Heart size and mediastinal contours stable. Interstitial opacification/edema persists. There is no new focal consolidation. No pneumothorax. Osseous structures stable. Impression: Persistent bilateral interstitial opacities, unchanged. No new focal consolidation.
--- NOTE | 2018-03-08 17:55 | Infectious Diseases Prog Note ---
Assessment/Plan Problems: (1) HCAP (healthcare-associated pneumonia) Assessment & Plan: S/P intubation due to worsening respiratory failure . on meropenem empiric coverage for pneumonia , repeated sputum culture grew MDR acinetobacter baumannii , most likely contaminant since she is not febrile with no increase in her secretions, repeated CXR ruled out any new infiltrates . pulmonary is following. (2) Leukocytosis Assessment & Plan: suspect reactive with negative repeated blood culture , continue meropenem for now , and tylenol as needed . S/P Sarkar exchange . 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 continue local wound care and dressing changes as per hospital protocol . followed by general surgery. already on meropenem (4) Acute respiratory failure Assessment & Plan: now chronic and ventilator dependant , pulmonary is following, monitor CXR and ABG . she may need tracheostomy (5) Low grade fever Assessment & Plan: resolved , possible due to urine infection , S/P sarkar catheter change, already on meropenem , repeated blood culture is negative . repeated CXR showed improvement in her aeration . await sputum culture continue tylenol as needed Subjective ROS Limited/Unobtainable: Yes Allergies: Coded Allergies: No Known Allergies (Verified , 03/10/07) Subjective she is still intubated on mechanical ventilation, in ICU, not alert , no fever, no chills , no diarrhea . sarkar catheter was changed Objective Vital Signs Last 24 Hour Vital Signs Date Time Temp Pulse Resp B/P (MAP) Pulse Ox O2 Delivery O2 Flow Rate FiO2 03/08/18 17:23 74 20 80 03/08/18 17:00 69 19 127/64 (85) 100 03/08/18 16:00 98.0 74 18 116/63 (80) 100 98.0 03/08/18 16:00 Mechanical Ventilator 03/08/18 16:00 80 03/08/18 15:22 74 03/08/18 15:01 70 20 80 03/08/18 15:00 72 16 133/58 (83) 99 03/08/18 14:00 73 19 124/81 (95) 99 03/08/18 13:25 81 131/72 03/08/18 13:00 81 18 131/72 (91) 99 03/08/18 12:33 86 20 80 03/08/18 12:25 86 03/08/18 12:00 Mechanical Ventilator 03/08/18 12:00 80 03/08/18 12:00 97.9 79 22 129/65 (86) 100 97.9 03/08/18 11:30 83 21 80 03/08/18 11:00 91 21 136/66 (89) 94 03/08/18 10:00 79 16 122/56 (78) 98 03/08/18 09:25 86 20 80 03/08/18 09:00 87 15 113/55 (74) 96 03/08/18 08:55 80 03/08/18 08:07 76 03/08/18 08:00 Mechanical Ventilator 03/08/18 08:00 97.9 76 22 107/54 (71) 96 97.9 03/08/18 08:00 50 03/08/18 07:57 76 03/08/18 07:00 79 15 99/53 (68) 99 03/08/18 06:55 73 21 50 03/08/18 06:12 86 129/63 03/08/18 06:00 77 21 129/63 (85) 98 03/08/18 05:00 77 18 101/49 (66) 100 03/08/18 04:40 83 26 80 03/08/18 04:01 88 03/08/18 04:00 Mechanical Ventilator 03/08/18 04:00 97.5 85 18 121/62 (81) 95 97.5 03/08/18 04:00 80 03/08/18 03:28 88 24 80 03/08/18 03:00 87 18 128/56 (80) 98 03/08/18 02:00 73 18 117/64 (81) 98 03/08/18 01:08 79 17 80 03/08/18 01:00 72 18 118/54 (75) 98 03/08/18 00:01 80 03/08/18 00:00 Mechanical Ventilator 03/08/18 00:00 60 03/08/18 00:00 98.3 77 18 108/50 (69) 98 98.3 03/07/18 23:00 76 18 112/52 (72) 98 03/07/18 22:47 79 21 60 03/07/18 22:00 80 18 119/55 (76) 99 03/07/18 21:32 87 128/57 03/07/18 21:14 82 23 60 03/07/18 21:00 82 18 110/53 (72) 97 03/07/18 20:00 60 03/07/18 20:00 Mechanical Ventilator 03/07/18 20:00 97.8 91 18 114/51 (72) 92 97.8 03/07/18 20:00 65 03/07/18 19:20 80 22 80 03/07/18 19:00 87 16 118/49 (72) 93 03/07/18 18:00 70 16 118/53 (74) 92 Height (Feet): 4 Height (Inches): 0.00 Weight (Pounds): 93 General Appearance: WD/WN, no acute distress HEENT: normocephalic, atraumatic, anicteric, mucous membranes moist, PERRL Respiratory/Chest: chest wall non-tender, no respiratory distress, no accessory muscle use, decreased breath sounds, crackles/rales Cardiovascular: normal peripheral pulses, normal rate, regular rhythm, no gallop/murmur, no JVD Abdomen: normal bowel sounds, soft, non tender, no organomegaly, non distended , no mass, no scars Genitourinary: normal external genitalia Extremities: no cyanosis, no clubbing Skin: no rash, no lesions, ulcers - sacral and hip pressure wounds Neurologic/Psychiatric: alert, oriented x 3 Laboratory Tests Test 03/08/18 05:48 White Blood Count 16.8 K/UL (4.8-10.8) H Red Blood Count 3.87 M/UL (4.20-5.40) L Hemoglobin 10.6 G/DL (12.0-16.0) L Hematocrit 33.7 % (37.0-47.0) L Mean Corpuscular Volume 87 FL (80-99) Mean Corpuscular Hemoglobin 27.3 PG (27.0-31.0) Mean Corpuscular Hemoglobin Concent 31.4 G/DL (32.0-36.0) L Red Cell Distribution Width 16.3 % (11.6-14.8) H Platelet Count 474 K/UL (150-450) H Mean Platelet Volume 9.1 FL (6.5-10.1) Neutrophils (%) (Auto) % (45.0-75.0) Lymphocytes (%) (Auto) % (20.0-45.0) Monocytes (%) (Auto) % (1.0-10.0) Eosinophils (%) (Auto) % (0.0-3.0) Basophils (%) (Auto) % (0.0-2.0) Differential Total Cells Counted 100 Neutrophils % (Manual) 85 % (45-75) H Lymphocytes % (Manual) 11 % (20-45) L Monocytes % (Manual) 3 % (1-10) Eosinophils % (Manual) 0 % (0-3) Basophils % (Manual) 0 % (0-2) Band Neutrophils 1 % (0-8) Platelet Estimate Adequate Platelet Morphology Normal Anisocytosis 1+ Sodium Level 150 MMOL/L (136-145) H Potassium Level 4.2 MMOL/L (3.5-5.1) Chloride Level 111 MMOL/L (98-107) H Carbon Dioxide Level 37 MMOL/L (21-32) H Anion Gap 2 mmol/L (5-15) L Blood Urea Nitrogen 28 mg/dL (7-18) H Creatinine 0.5 MG/DL (0.55-1.30) L Estimat Glomerular Filtration Rate mL/min (>60) Glucose Level 103 MG/DL (74-106) Calcium Level 8.8 MG/DL (8.5-10.1) Total Bilirubin 0.2 MG/DL (0.2-1.0) Aspartate Amino Transf (AST/SGOT) 24 U/L (15-37) Alanine Aminotransferase (ALT/SGPT) 30 U/L (12-78) Alkaline Phosphatase 108 U/L (46-116) Total Protein 7.3 G/DL (6.4-8.2) Albumin 1.4 G/DL (3.4-5.0) L Globulin 5.9 g/dL Albumin/Globulin Ratio 0.2 (1.0-2.7) L Current Medications Medications (Trade) Dose Ordered Sig/Rosetta Route PRN Reason Start Time Stop Time Status Last Admin Dose Admin Acetaminophen (Tylenol) 650 mg Q4H PRN GT Mild Pain/Temp > 100.5 02/22/18 08:00 03/10/18 15:59 03/07/18 21:32 Artificial Tears (Akwa-Tears) 2 drop Q2HR PRN BOTH EYES Dry Eyes 03/04/18 19:30 04/03/18 19:29 Ascorbic Acid (Vitamin C) 500 mg DAILY GT 03/08/18 09:00 04/07/18 08:59 03/08/18 08:07 Clonidine HCl (Catapres Tab) 0.1 mg Q8H PRN GT SBP >160 02/22/18 09:00 03/09/18 16:59 Dextrose (Dextrose 50%) 25 ml STAT PRN IV Hypoglycemia 03/07/18 17:00 04/06/18 16:59 Dextrose (Dextrose 50%) 50 ml STAT PRN IV Hypoglycemia 03/07/18 17:00 04/06/18 16:59 Digoxin (Lanoxin) 0.125 mg DAILY GT 03/08/18 09:00 04/07/18 08:59 03/08/18 08:07 Diltiazem HCl (Cardizem) 90 mg EVERY 8 HOURS GT 03/08/18 14:00 03/12/18 21:59 03/08/18 13:25 Enoxaparin Sodium (Lovenox) 30 mg Q24H SUBQ 02/22/18 09:00 03/13/18 08:59 03/08/18 08:06 Famotidine (Pepcid) 20 mg DAILY GT 02/22/18 09:00 03/10/18 08:59 03/08/18 08:06 Insulin Aspart (NovoLOG) BEFORE MEALS AND HS SUBQ 03/07/18 21:00 04/06/18 20:59 Lorazepam (Ativan) 2 mg Q6H PRN GT For Anxiety 03/08/18 11:46 03/15/18 11:45 Meropenem 1 gm/ Sodium Chloride 110 ml @ 220 mls/hr Q12HR@0600,1800 IVPB 02/22/18 18:00 03/09/18 17:59 03/08/18 17:08 Dom Hoffman M.D. Mar 08, 2018 17:55
[2018-03-08] MEDS: Artificial Tears 1.4% Op Soln BOTH EYES PRN (21:57)
[2018-03-08] MEDS: Acetaminophen 650mg/20.3ml GT PRN (23:26)
[2018-03-09] VITALS (24 sets, daily range): BP systolic 96–139; BP diastolic 46–87
[2018-03-09 04:37] LABS: BASOPHILS % (AUTO) 0.4 % (0.0-2.0); EOSINOPHILS % (AUTO) 2.2 % (0.0-3.0); HEMATOCRIT 32.6 % (37.0-47.0); HEMOGLOBIN 10.3 G/DL (12.0-16.0); LYMPHOCYTES % (AUTO) 15.1 % (20.0-45.0); MEAN CORPUSCULAR VOLUME 87 FL (80-99); MONOCYTES % (AUTO) 4.5 % (1.0-10.0); NEUTROPHILS % (AUTO) 77.7 % (45.0-75.0); PLATELET COUNT 515 K/UL (150-450); RED BLOOD COUNT 3.74 M/UL (4.20-5.40); RED CELL DISTRIBUTION WIDTH 16.6 % (11.6-14.8); WHITE BLOOD COUNT 13.1 K/UL (4.8-10.8)
[2018-03-09 04:55] LABS: ANION GAP 3 mmol/L (5-15); BLOOD UREA NITROGEN 32 mg/dL (7-18); CALCIUM 8.7 MG/DL (8.5-10.1); CARBON DIOXIDE 37 MMOL/L (21-32); CHLORIDE 112 MMOL/L (98-107); CREATININE 0.5 MG/DL (0.55-1.30); SODIUM 152 MMOL/L (136-145)
[2018-03-09] MEDS: NovoLOG Insulin Flexpen SUBQ SCH ×4 (05:57→21:41)
[2018-03-09] MEDS: dilTIAZem HCl 90mg tab GT SCH ×3 (05:57→21:37)
[2018-03-09] MEDS: Meropenem 1 GM in NS 110 ML IVPB SCH (05:57)
--- NOTE | 2018-03-09 08:19 | Nephrology Progress Note ---
Assessment/Plan Assessment/Plan 1. Sepsis - Abx 2. Sacral Decub- Gen Surg mgmt/wound care 3. Hyernatremia- increased free water thru GTube. Check BMP in am 4. Resp FL- Patient intubated - patient requiring emergent trach as she has been intubated for a prolonged time and no clear possible of being extubated anytime soon - awaiting court decision 5. AFib- digoxin + cardizem 6. DVT prophylaxis- lovenox Subjective Date patient seen: Mar 09, 2018 Time patient seen: 08:17 ROS Limited/Unobtainable: Yes Allergies: Coded Allergies: No Known Allergies (Verified , 03/10/07) Subjective Patient remains intubated and awaiting court ruling and poss trach Objective Last 24 Hour Vital Signs Date Time Temp Pulse Resp B/P (MAP) Pulse Ox O2 Delivery O2 Flow Rate FiO2 03/09/18 08:00 Mechanical Ventilator 03/09/18 08:00 60 03/09/18 08:00 99.1 73 15 96/50 (65) 96 99.1 03/09/18 07:28 72 15 50 03/09/18 07:00 77 16 115/56 (75) 97 03/09/18 06:00 79 18 118/59 (78) 99 03/09/18 05:57 84 120/61 03/09/18 05:00 77 18 118/59 (78) 100 03/09/18 04:53 79 17 60 03/09/18 04:22 77 03/09/18 04:00 60 03/09/18 04:00 97.5 73 17 115/55 (75) 98 97.5 03/09/18 04:00 Mechanical Ventilator 03/09/18 03:12 75 18 60 03/09/18 03:00 74 16 111/54 (73) 99 03/09/18 02:00 75 25 104/50 (68) 95 03/09/18 01:00 73 34 126/60 (82) 98 03/09/18 00:38 81 19 60 03/09/18 00:00 Mechanical Ventilator 03/09/18 00:00 98.5 79 15 97/46 (63) 100 98.5 03/09/18 00:00 60 03/08/18 23:21 81 20 60 03/08/18 23:10 90 03/08/18 23:00 90 22 123/52 (75) 90 03/08/18 22:00 86 19 141/61 (87) 98 03/08/18 21:57 85 140/66 03/08/18 21:00 82 21 133/62 (85) 98 03/08/18 20:49 81 19 60 03/08/18 20:15 79 03/08/18 20:00 98.5 79 25 137/60 (85) 99 98.5 03/08/18 20:00 Mechanical Ventilator 03/08/18 20:00 60 03/08/18 19:28 69 17 60 03/08/18 19:00 72 19 117/55 (75) 100 03/08/18 18:00 72 23 128/60 (82) 100 03/08/18 17:23 74 20 80 03/08/18 17:00 69 19 127/64 (85) 100 03/08/18 16:00 98.0 74 18 116/63 (80) 100 98.0 03/08/18 16:00 Mechanical Ventilator 03/08/18 16:00 80 03/08/18 15:22 74 03/08/18 15:01 70 20 80 03/08/18 15:00 72 16 133/58 (83) 99 03/08/18 14:00 73 19 124/81 (95) 99 03/08/18 13:25 81 131/72 03/08/18 13:00 81 18 131/72 (91) 99 03/08/18 12:33 86 20 80 03/08/18 12:25 86 03/08/18 12:00 Mechanical Ventilator 03/08/18 12:00 80 03/08/18 12:00 97.9 79 22 129/65 (86) 100 97.9 03/08/18 11:30 83 21 80 03/08/18 11:00 91 21 136/66 (89) 94 03/08/18 10:00 79 16 122/56 (78) 98 03/08/18 09:25 86 20 80 03/08/18 09:00 87 15 113/55 (74) 96 03/08/18 08:55 80 Intake and Output 03/08/18 03/09/18 19:00 07:00 Intake Total 1170 ml 1100 ml Output Total 570 ml 545 ml Balance 600 ml 555 ml Free Water 400 ml 300 ml IV Total 110 ml 110 ml Tube Feeding 540 ml 540 ml Other 120 ml 150 ml Output Urine Total 570 ml 545 ml # Bowel Movements 2 2 Laboratory Tests 03/09/18 04:00: White Blood Count 13.1H, Red Blood Count 3.74L, Hemoglobin 10.3L, Hematocrit 32.6L, Mean Corpuscular Volume 87, Mean Corpuscular Hemoglobin 27.4, Mean Corpuscular Hemoglobin Concent 31.4L, Red Cell Distribution Width 16.6H, Platelet Count 515H, Mean Platelet Volume 8.8, Neutrophils (%) (Auto) 77.7H, Lymphocytes (%) (Auto) 15.1L, Monocytes (%) (Auto) 4.5, Eosinophils (%) (Auto) 2.2, Basophils (%) (Auto) 0.4, Sodium Level 152H, Potassium Level 4.0, Chloride Level 112H, Carbon Dioxide Level 37H, Anion Gap 3L, Blood Urea Nitrogen 32H, Creatinine 0.5L, Estimat Glomerular Filtration Rate , Glucose Level 100, Calcium Level 8.7 Height (Feet): 4 Height (Inches): 0.00 Weight (Pounds): 94 General Appearance: WD/WN, no apparent distress EENT: PERRL/EOMI, normal ENT inspection Neck: non-tender, normal alignment Cardiovascular: normal rate Respiratory/Chest: rhonchi - bilaterally Abdomen: non tender, soft Edema: no edema noted Arm (L), no edema noted Arm (R), no edema noted Leg (L), no edema noted Leg (R), no edema noted Pedal (L), no edema noted Pedal (R), no edema noted Generalized Jorge Graf M.D. Mar 09, 2018 08:19
[2018-03-09] MEDS: Digoxin 0.125mg tab GT SCH (08:33)
[2018-03-09] MEDS: Ascorbic Acid 500mg tab GT SCH (08:33)
[2018-03-09] MEDS: Enoxaparin 30mg Inj SUBQ SCH (08:34)
[2018-03-09] MEDS: Artificial Tears 1.4% Op Soln BOTH EYES PRN (08:40)
--- NOTE | 2018-03-09 09:35 | Pulmonology Progress Note ---
Assessment/Plan Assessment/Plan IMPRESSION: 1. Bilateral pneumonia. Last CXR on 03/02/ shows left basilar pneumonia 2. Respiratory failure; intubated; remains hypoxemic with 80% FiO2 3. Hypertension. 4. Diabetes mellitus. 5. Dehydration, hypernatremia 6. Tardive dyskinesia 7. Anemia DISCUSSION: Will check CXR Discussed with PMD Will need trach Continue vent Unable to wean Await bioethics eval to allow 2 physician consent for trach as there is risk of grave injury if trach not performed soon Seen also by marine chronometer assembler re:DNR Subjective Interval Events: none Constitutional: Reports: no symptoms HEENT: Repors: no symptoms Respiratory: Reports: no symptoms Cardiovascular: Reports: no symptoms Gastrointestinal/Abdominal: Reports: no symptoms Genitourinary: Reports: no symptoms Neurologic: Reports: no symptoms Allergies: Coded Allergies: No Known Allergies (Verified , 03/10/07) Objective Last 24 Hour Vital Signs Date Time Temp Pulse Resp B/P (MAP) Pulse Ox O2 Delivery O2 Flow Rate FiO2 03/09/18 09:29 73 16 50 03/09/18 09:00 74 18 108/50 (69) 98 03/09/18 08:33 73 03/09/18 08:30 50 03/09/18 08:08 74 03/09/18 08:00 Mechanical Ventilator 03/09/18 08:00 60 03/09/18 08:00 99.1 73 15 96/50 (65) 96 99.1 03/09/18 07:28 72 15 50 03/09/18 07:00 77 16 115/56 (75) 97 03/09/18 06:00 79 18 118/59 (78) 99 03/09/18 05:57 84 120/61 03/09/18 05:00 77 18 118/59 (78) 100 03/09/18 04:53 79 17 60 03/09/18 04:22 77 03/09/18 04:00 60 03/09/18 04:00 97.5 73 17 115/55 (75) 98 97.5 03/09/18 04:00 Mechanical Ventilator 03/09/18 03:12 75 18 60 03/09/18 03:00 74 16 111/54 (73) 99 03/09/18 02:00 75 25 104/50 (68) 95 03/09/18 01:00 73 34 126/60 (82) 98 03/09/18 00:38 81 19 60 03/09/18 00:00 Mechanical Ventilator 03/09/18 00:00 98.5 79 15 97/46 (63) 100 98.5 03/09/18 00:00 60 03/08/18 23:21 81 20 60 03/08/18 23:10 90 03/08/18 23:00 90 22 123/52 (75) 90 03/08/18 22:00 86 19 141/61 (87) 98 03/08/18 21:57 85 140/66 03/08/18 21:00 82 21 133/62 (85) 98 03/08/18 20:49 81 19 60 03/08/18 20:15 79 03/08/18 20:00 98.5 79 25 137/60 (85) 99 98.5 03/08/18 20:00 Mechanical Ventilator 03/08/18 20:00 60 03/08/18 19:28 69 17 60 03/08/18 19:00 72 19 117/55 (75) 100 03/08/18 18:00 72 23 128/60 (82) 100 03/08/18 17:23 74 20 80 03/08/18 17:00 69 19 127/64 (85) 100 03/08/18 16:00 98.0 74 18 116/63 (80) 100 98.0 03/08/18 16:00 Mechanical Ventilator 03/08/18 16:00 80 03/08/18 15:22 74 03/08/18 15:01 70 20 80 03/08/18 15:00 72 16 133/58 (83) 99 03/08/18 14:00 73 19 124/81 (95) 99 03/08/18 13:25 81 131/72 03/08/18 13:00 81 18 131/72 (91) 99 03/08/18 12:33 86 20 80 03/08/18 12:25 86 03/08/18 12:00 Mechanical Ventilator 03/08/18 12:00 80 03/08/18 12:00 97.9 79 22 129/65 (86) 100 97.9 03/08/18 11:30 83 21 80 03/08/18 11:00 91 21 136/66 (89) 94 03/08/18 10:00 79 16 122/56 (78) 98 Intake and Output 03/08/18 03/09/18 19:00 07:00 Intake Total 1170 ml 1100 ml Output Total 570 ml 545 ml Balance 600 ml 555 ml Free Water 400 ml 300 ml IV Total 110 ml 110 ml Tube Feeding 540 ml 540 ml Other 120 ml 150 ml Output Urine Total 570 ml 545 ml # Bowel Movements 2 2 General Appearance: no acute distress HEENT: normocephalic Respiratory/Chest: chest wall non-tender, lungs clear Cardiovascular: normal peripheral pulses, normal rate Abdomen: normal bowel sounds Laboratory Tests 03/09/18 04:00: White Blood Count 13.1H, Red Blood Count 3.74L, Hemoglobin 10.3L, Hematocrit 32.6L, Mean Corpuscular Volume 87, Mean Corpuscular Hemoglobin 27.4, Mean Corpuscular Hemoglobin Concent 31.4L, Red Cell Distribution Width 16.6H, Platelet Count 515H, Mean Platelet Volume 8.8, Neutrophils (%) (Auto) 77.7H, Lymphocytes (%) (Auto) 15.1L, Monocytes (%) (Auto) 4.5, Eosinophils (%) (Auto) 2.2, Basophils (%) (Auto) 0.4, Sodium Level 152H, Potassium Level 4.0, Chloride Level 112H, Carbon Dioxide Level 37H, Anion Gap 3L, Blood Urea Nitrogen 32H, Creatinine 0.5L, Estimat Glomerular Filtration Rate , Glucose Level 100, Calcium Level 8.7 Current Medications Medications (Trade) Dose Ordered Sig/Rosetta Route PRN Reason Start Time Stop Time Status Last Admin Dose Admin Acetaminophen (Tylenol) 650 mg Q4H PRN GT Mild Pain/Temp > 100.5 02/22/18 08:00 03/10/18 15:59 03/08/18 23:26 Artificial Tears (Akwa-Tears) 2 drop Q2HR PRN BOTH EYES Dry Eyes 03/04/18 19:30 04/03/18 19:29 03/09/18 08:40 Ascorbic Acid (Vitamin C) 500 mg DAILY GT 03/08/18 09:00 04/07/18 08:59 03/09/18 08:33 Clonidine HCl (Catapres Tab) 0.1 mg Q8H PRN GT SBP >160 02/22/18 09:00 03/09/18 16:59 Dextrose (Dextrose 50%) 25 ml STAT PRN IV Hypoglycemia 03/07/18 17:00 04/06/18 16:59 Dextrose (Dextrose 50%) 50 ml STAT PRN IV Hypoglycemia 03/07/18 17:00 04/06/18 16:59 Digoxin (Lanoxin) 0.125 mg DAILY GT 03/08/18 09:00 04/07/18 08:59 03/09/18 08:33 Diltiazem HCl (Cardizem) 90 mg EVERY 8 HOURS GT 03/08/18 14:00 03/12/18 21:59 03/09/18 05:57 Enoxaparin Sodium (Lovenox) 30 mg Q24H SUBQ 02/22/18 09:00 03/13/18 08:59 03/09/18 08:34 Famotidine (Pepcid) 20 mg DAILY GT 02/22/18 09:00 03/10/18 08:59 03/09/18 08:33 Insulin Aspart (NovoLOG) BEFORE MEALS AND HS SUBQ 03/07/18 21:00 04/06/18 20:59 Lorazepam (Ativan) 2 mg Q6H PRN GT For Anxiety 03/08/18 11:46 03/15/18 11:45 Meropenem 1 gm/ Sodium Chloride 110 ml @ 220 mls/hr Q12HR@0600,1800 IVPB 02/22/18 18:00 03/09/18 17:59 03/09/18 05:57 Jan Sawant MD Mar 09, 2018 09:35
--- NOTE | 2018-03-09 10:01 | Cardiology Progress Note ---
Assessment/Plan Status: stable, unchanged Assessment/Plan Assessment/Plan Assessment/Plan 1. Paroxysmal atrial fibrillation. In SR on digoxin 0.125 mg daily and Cardizem 30 tid. Off anticoagulation. Echo Nl EF. 2. Hypertension. On Cardizem 30 tid 3. Respiratory failure, on Vent now in ICU 4. Diabetes, on insulin. 5. Dementia. 6. Dysphagia, status post PEG 7. Sacral decubitus stage III. FU by Dr. Austin. 8. CVA with aphasia and contractures. 9. Trach for prolonged intubation Subjective Cardiovascular: Reports: no symptoms Respiratory: Reports: no symptoms Gastrointestinal/Abdominal: Reports: no symptoms Genitourinary: Reports: no symptoms Subjective Patient lethargic, open eyes, on ETT to vent ac 15/tv450/fio2 60%/ peep5, o2 saturation 93% noted, abdomen soft, g tube intact Tube feeds of Glucerna at 45ml /hr Objective Last 24 Hour Vital Signs Date Time Temp Pulse Resp B/P (MAP) Pulse Ox O2 Delivery O2 Flow Rate FiO2 03/09/18 09:29 73 16 50 03/09/18 09:00 74 18 108/50 (69) 98 03/09/18 08:33 73 03/09/18 08:30 50 03/09/18 08:08 74 03/09/18 08:00 Mechanical Ventilator 03/09/18 08:00 60 03/09/18 08:00 99.1 73 15 96/50 (65) 96 99.1 03/09/18 07:28 72 15 50 03/09/18 07:00 77 16 115/56 (75) 97 03/09/18 06:00 79 18 118/59 (78) 99 03/09/18 05:57 84 120/61 03/09/18 05:00 77 18 118/59 (78) 100 03/09/18 04:53 79 17 60 03/09/18 04:22 77 03/09/18 04:00 60 03/09/18 04:00 97.5 73 17 115/55 (75) 98 97.5 03/09/18 04:00 Mechanical Ventilator 03/09/18 03:12 75 18 60 03/09/18 03:00 74 16 111/54 (73) 99 03/09/18 02:00 75 25 104/50 (68) 95 03/09/18 01:00 73 34 126/60 (82) 98 03/09/18 00:38 81 19 60 03/09/18 00:00 Mechanical Ventilator 03/09/18 00:00 98.5 79 15 97/46 (63) 100 98.5 03/09/18 00:00 60 03/08/18 23:21 81 20 60 03/08/18 23:10 90 03/08/18 23:00 90 22 123/52 (75) 90 03/08/18 22:00 86 19 141/61 (87) 98 03/08/18 21:57 85 140/66 03/08/18 21:00 82 21 133/62 (85) 98 03/08/18 20:49 81 19 60 03/08/18 20:15 79 03/08/18 20:00 98.5 79 25 137/60 (85) 99 98.5 03/08/18 20:00 Mechanical Ventilator 03/08/18 20:00 60 03/08/18 19:28 69 17 60 03/08/18 19:00 72 19 117/55 (75) 100 03/08/18 18:00 72 23 128/60 (82) 100 03/08/18 17:23 74 20 80 03/08/18 17:00 69 19 127/64 (85) 100 03/08/18 16:00 98.0 74 18 116/63 (80) 100 98.0 03/08/18 16:00 Mechanical Ventilator 03/08/18 16:00 80 03/08/18 15:22 74 03/08/18 15:01 70 20 80 03/08/18 15:00 72 16 133/58 (83) 99 03/08/18 14:00 73 19 124/81 (95) 99 03/08/18 13:25 81 131/72 03/08/18 13:00 81 18 131/72 (91) 99 03/08/18 12:33 86 20 80 03/08/18 12:25 86 03/08/18 12:00 Mechanical Ventilator 03/08/18 12:00 80 03/08/18 12:00 97.9 79 22 129/65 (86) 100 97.9 03/08/18 11:30 83 21 80 03/08/18 11:00 91 21 136/66 (89) 94 General Appearance: no apparent distress, on vent EENT: PERRL/EOMI Neck: non-tender Rhythm: NSR Cardiovascular: normal peripheral pulses, normal rate Respiratory/Chest: chest wall non-tender Abdomen: normal bowel sounds Extremities: normal range of motion 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 II-XII grossly normal Intake and Output 03/08/18 03/09/18 19:00 07:00 Intake Total 1170 ml 1100 ml Output Total 570 ml 545 ml Balance 600 ml 555 ml Free Water 400 ml 300 ml IV Total 110 ml 110 ml Tube Feeding 540 ml 540 ml Other 120 ml 150 ml Output Urine Total 570 ml 545 ml # Bowel Movements 2 2 Laboratory Tests Test 03/09/18 04:00 White Blood Count 13.1 K/UL (4.8-10.8) H Red Blood Count 3.74 M/UL (4.20-5.40) L Hemoglobin 10.3 G/DL (12.0-16.0) L Hematocrit 32.6 % (37.0-47.0) L Mean Corpuscular Volume 87 FL (80-99) Mean Corpuscular Hemoglobin 27.4 PG (27.0-31.0) Mean Corpuscular Hemoglobin Concent 31.4 G/DL (32.0-36.0) L Red Cell Distribution Width 16.6 % (11.6-14.8) H Platelet Count 515 K/UL (150-450) H Mean Platelet Volume 8.8 FL (6.5-10.1) Neutrophils (%) (Auto) 77.7 % (45.0-75.0) H Lymphocytes (%) (Auto) 15.1 % (20.0-45.0) L Monocytes (%) (Auto) 4.5 % (1.0-10.0) Eosinophils (%) (Auto) 2.2 % (0.0-3.0) Basophils (%) (Auto) 0.4 % (0.0-2.0) Sodium Level 152 MMOL/L (136-145) H Potassium Level 4.0 MMOL/L (3.5-5.1) Chloride Level 112 MMOL/L (98-107) H Carbon Dioxide Level 37 MMOL/L (21-32) H Anion Gap 3 mmol/L (5-15) L Blood Urea Nitrogen 32 mg/dL (7-18) H Creatinine 0.5 MG/DL (0.55-1.30) L Estimat Glomerular Filtration Rate mL/min (>60) Glucose Level 100 MG/DL (74-106) Calcium Level 8.7 MG/DL (8.5-10.1) Maxx Ureña M.D. Mar 09, 2018 10:01
--- NOTE | 2018-03-09 14:42 | Infectious Diseases Prog Note ---
Assessment/Plan Problems: (1) HCAP (healthcare-associated pneumonia) Assessment & Plan: S/P intubation due to worsening respiratory failure . has been on meropenem empiric coverage for pneumonia with no new infiltrates and stable lungs infiltrates , repeated sputum culture grew MDR acinetobacter baumannii , most likely contaminant since she is not febrile with no increase in her secretions, repeated CXR ruled out any new infiltrates . will stop meropenem and monitor off antibiotics . pulmonary is following. (2) Leukocytosis Assessment & Plan: suspect reactive with negative repeated blood culture , will stop meropenem for now and monitor clinically , continue tylenol as needed . S/P Sarkar exchange . 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 continue local wound care and dressing changes as per hospital protocol . followed by general surgery. already on meropenem (4) Acute respiratory failure Assessment & Plan: now chronic and ventilator dependant , pulmonary is following, monitor CXR and ABG . she may need tracheostomy (5) Low grade fever Assessment & Plan: resolved , possible due to urine infection , S/P sarkar catheter change, already on meropenem , repeated blood culture is negative . repeated CXR showed improvement in her aeration . await sputum culture continue tylenol as needed Subjective ROS Limited/Unobtainable: Yes Allergies: Coded Allergies: No Known Allergies (Verified , 03/10/07) Subjective she is still intubated on mechanical ventilation, in ICU, alert and makes eye contact , no fever, no chills , had mild diarrhea . urine is clear Objective Vital Signs Last 24 Hour Vital Signs Date Time Temp Pulse Resp B/P (MAP) Pulse Ox O2 Delivery O2 Flow Rate FiO2 03/09/18 14:09 95 126/63 03/09/18 14:00 99.5 94 15 126/63 (84) 99 99.5 03/09/18 13:26 95 15 50 03/09/18 13:00 92 22 129/59 (82) 99 03/09/18 12:21 90 03/09/18 12:00 Mechanical Ventilator 03/09/18 12:00 82 18 106/53 (70) 99 03/09/18 11:25 86 19 50 03/09/18 11:00 81 16 116/56 (76) 99 03/09/18 10:00 75 16 116/50 (72) 100 03/09/18 09:29 73 16 50 03/09/18 09:00 74 18 108/50 (69) 98 03/09/18 08:33 73 03/09/18 08:30 50 03/09/18 08:08 74 03/09/18 08:00 Mechanical Ventilator 03/09/18 08:00 60 03/09/18 08:00 99.1 73 15 96/50 (65) 96 99.1 03/09/18 07:28 72 15 50 03/09/18 07:00 77 16 115/56 (75) 97 03/09/18 06:00 79 18 118/59 (78) 99 03/09/18 05:57 84 120/61 03/09/18 05:00 77 18 118/59 (78) 100 03/09/18 04:53 79 17 60 03/09/18 04:22 77 03/09/18 04:00 60 03/09/18 04:00 97.5 73 17 115/55 (75) 98 97.5 03/09/18 04:00 Mechanical Ventilator 03/09/18 03:12 75 18 60 03/09/18 03:00 74 16 111/54 (73) 99 03/09/18 02:00 75 25 104/50 (68) 95 03/09/18 01:00 73 34 126/60 (82) 98 03/09/18 00:38 81 19 60 03/09/18 00:00 Mechanical Ventilator 03/09/18 00:00 98.5 79 15 97/46 (63) 100 98.5 03/09/18 00:00 60 03/08/18 23:21 81 20 60 03/08/18 23:10 90 03/08/18 23:00 90 22 123/52 (75) 90 03/08/18 22:00 86 19 141/61 (87) 98 03/08/18 21:57 85 140/66 03/08/18 21:00 82 21 133/62 (85) 98 03/08/18 20:49 81 19 60 03/08/18 20:15 79 03/08/18 20:00 98.5 79 25 137/60 (85) 99 98.5 03/08/18 20:00 Mechanical Ventilator 03/08/18 20:00 60 03/08/18 19:28 69 17 60 03/08/18 19:00 72 19 117/55 (75) 100 03/08/18 18:00 72 23 128/60 (82) 100 03/08/18 17:23 74 20 80 03/08/18 17:00 69 19 127/64 (85) 100 03/08/18 16:00 98.0 74 18 116/63 (80) 100 98.0 03/08/18 16:00 Mechanical Ventilator 03/08/18 16:00 80 03/08/18 15:22 74 03/08/18 15:01 70 20 80 03/08/18 15:00 72 16 133/58 (83) 99 Height (Feet): 4 Height (Inches): 0.00 Weight (Pounds): 94 General Appearance: WD/WN, no acute distress HEENT: normocephalic, atraumatic, anicteric, mucous membranes moist Respiratory/Chest: chest wall non-tender, no respiratory distress, decreased breath sounds, expiratory wheezing Cardiovascular: normal peripheral pulses, normal rate, regular rhythm, no gallop/murmur, no JVD Abdomen: normal bowel sounds, soft, non tender, no organomegaly, non distended , no mass, no scars Extremities: no cyanosis, no clubbing Skin: no rash, no lesions, ulcers Neurologic/Psychiatric: alert, unresponsiveness Lymphatic: no neck adenopathy, no groin adenopathy Musculoskeletal: normal muscle bulk, no effusion Laboratory Tests Test 03/09/18 04:00 White Blood Count 13.1 K/UL (4.8-10.8) H Red Blood Count 3.74 M/UL (4.20-5.40) L Hemoglobin 10.3 G/DL (12.0-16.0) L Hematocrit 32.6 % (37.0-47.0) L Mean Corpuscular Volume 87 FL (80-99) Mean Corpuscular Hemoglobin 27.4 PG (27.0-31.0) Mean Corpuscular Hemoglobin Concent 31.4 G/DL (32.0-36.0) L Red Cell Distribution Width 16.6 % (11.6-14.8) H Platelet Count 515 K/UL (150-450) H Mean Platelet Volume 8.8 FL (6.5-10.1) Neutrophils (%) (Auto) 77.7 % (45.0-75.0) H Lymphocytes (%) (Auto) 15.1 % (20.0-45.0) L Monocytes (%) (Auto) 4.5 % (1.0-10.0) Eosinophils (%) (Auto) 2.2 % (0.0-3.0) Basophils (%) (Auto) 0.4 % (0.0-2.0) Sodium Level 152 MMOL/L (136-145) H Potassium Level 4.0 MMOL/L (3.5-5.1) Chloride Level 112 MMOL/L (98-107) H Carbon Dioxide Level 37 MMOL/L (21-32) H Anion Gap 3 mmol/L (5-15) L Blood Urea Nitrogen 32 mg/dL (7-18) H Creatinine 0.5 MG/DL (0.55-1.30) L Estimat Glomerular Filtration Rate mL/min (>60) Glucose Level 100 MG/DL (74-106) Calcium Level 8.7 MG/DL (8.5-10.1) Current Medications Medications (Trade) Dose Ordered Sig/Rosetta Route PRN Reason Start Time Stop Time Status Last Admin Dose Admin Acetaminophen (Tylenol) 650 mg Q4H PRN GT Mild Pain/Temp > 100.5 02/22/18 08:00 03/10/18 15:59 03/08/18 23:26 Artificial Tears (Akwa-Tears) 2 drop Q2HR PRN BOTH EYES Dry Eyes 03/04/18 19:30 04/03/18 19:29 03/09/18 08:40 Ascorbic Acid (Vitamin C) 500 mg DAILY GT 03/08/18 09:00 04/07/18 08:59 03/09/18 08:33 Clonidine HCl (Catapres Tab) 0.1 mg Q8H PRN GT SBP >160 02/22/18 09:00 03/09/18 16:59 Dextrose (Dextrose 50%) 25 ml STAT PRN IV Hypoglycemia 03/07/18 17:00 04/06/18 16:59 Dextrose (Dextrose 50%) 50 ml STAT PRN IV Hypoglycemia 03/07/18 17:00 04/06/18 16:59 Digoxin (Lanoxin) 0.125 mg DAILY GT 03/08/18 09:00 04/07/18 08:59 03/09/18 08:33 Diltiazem HCl (Cardizem) 90 mg EVERY 8 HOURS GT 03/08/18 14:00 03/12/18 21:59 03/09/18 14:09 Enoxaparin Sodium (Lovenox) 30 mg Q24H SUBQ 02/22/18 09:00 03/13/18 08:59 03/09/18 08:34 Famotidine (Pepcid) 20 mg DAILY GT 02/22/18 09:00 03/10/18 08:59 03/09/18 08:33 Insulin Aspart (NovoLOG) BEFORE MEALS AND HS SUBQ 03/07/18 21:00 04/06/18 20:59 03/09/18 11:31 Lorazepam (Ativan) 2 mg Q6H PRN GT For Anxiety 03/08/18 11:46 03/15/18 11:45 Meropenem 1 gm/ Sodium Chloride 110 ml @ 220 mls/hr Q12HR@0600,1800 IVPB 02/22/18 18:00 03/09/18 17:59 03/09/18 05:57 Dom Hoffman M.D. Mar 09, 2018 14:42
--- NOTE | 2018-03-09 16:46 | Progress Note ---
DATE: 03/09/2018 SUBJECTIVE: The patient's mental condition is unchanged since previous encounter. She is in intensive care unit and intubated. Conservatorship paperwork is filed. DNR and DNI. Awaiting court order. MENTAL STATUS EXAMINATION: The patient is lethargic with waxing and waning consciousness. Confused. Affect is flat. Thought process, there is a paucity of thought content. Thought content, no suicidal or homicidal ideations. ASSESSMENT: Encephalopathy. PLAN: We will continue the current medication. Continue the Seroquel p.r.n. Darling Baker M.D. DR: PARTH JOB#: [id number] CC:
[2018-03-10] VITALS (24 sets, daily range): BP systolic 102–139; BP diastolic 51–73
[2018-03-10] MEDS: dilTIAZem HCl 90mg tab GT SCH ×3 (05:48→22:26)
[2018-03-10] MEDS: NovoLOG Insulin Flexpen SUBQ SCH ×4 (05:49→22:30)
[2018-03-10 06:35] LABS: BASOPHILS % (AUTO) 0.4 % (0.0-2.0); EOSINOPHILS % (AUTO) 1.5 % (0.0-3.0); HEMATOCRIT 31.8 % (37.0-47.0); HEMOGLOBIN 9.8 G/DL (12.0-16.0); LYMPHOCYTES % (AUTO) 18.3 % (20.0-45.0); MEAN CORPUSCULAR VOLUME 87 FL (80-99); MONOCYTES % (AUTO) 4.5 % (1.0-10.0); NEUTROPHILS % (AUTO) 75.3 % (45.0-75.0); PLATELET COUNT 533 K/UL (150-450); RED BLOOD COUNT 3.65 M/UL (4.20-5.40); RED CELL DISTRIBUTION WIDTH 16.8 % (11.6-14.8); WHITE BLOOD COUNT 11.8 K/UL (4.8-10.8)
[2018-03-10 06:46] LABS: ANION GAP 4 mmol/L (5-15); BLOOD UREA NITROGEN 31 mg/dL (7-18); CALCIUM 8.9 MG/DL (8.5-10.1); CARBON DIOXIDE 37 MMOL/L (21-32); CHLORIDE 110 MMOL/L (98-107); CREATININE 0.4 MG/DL (0.55-1.30); SODIUM 151 MMOL/L (136-145)
--- NOTE | 2018-03-10 08:06 | Nephrology Progress Note ---
Assessment/Plan Assessment/Plan 1. Sepsis - Abx per ID 2. Sacral Decub- Gen Surg mgmt/wound care 3. Hyernatremia- increased free water thru GTube. Add D5W 4. Resp FL- Patient intubated - patient requiring emergent trach as she has been intubated for a prolonged time and no clear possible of being extubated anytime soon 5. AFib- digoxin + cardizem 6. DVT prophylaxis- lovenox Subjective Date patient seen: Mar 10, 2018 Time patient seen: 08:03 ROS Limited/Unobtainable: Yes Allergies: Coded Allergies: No Known Allergies (Verified , 03/10/07) All Systems: reviewed and negative except above Subjective Patient remains intubated, awaiting court ruling and poss trach Objective Last 24 Hour Vital Signs Date Time Temp Pulse Resp B/P (MAP) Pulse Ox O2 Delivery O2 Flow Rate FiO2 03/10/18 07:28 78 15 40 03/10/18 07:00 98.8 80 14 122/57 (78) 100 98.8 03/10/18 06:00 87 17 111/53 (72) 100 03/10/18 05:48 86 118/57 03/10/18 05:27 84 16 40 03/10/18 05:00 86 16 118/57 (77) 100 03/10/18 04:00 83 15 102/57 (72) 95 03/10/18 04:00 83 03/10/18 04:00 Mechanical Ventilator 03/10/18 04:00 40 03/10/18 03:29 88 19 40 03/10/18 03:00 81 16 124/64 (84) 98 03/10/18 02:00 80 16 124/61 (82) 99 03/10/18 01:00 81 17 110/58 (75) 98 03/10/18 01:00 86 19 40 03/10/18 00:00 98.9 87 20 131/61 (84) 96 98.9 03/10/18 00:00 87 03/10/18 00:00 50 03/10/18 00:00 Mechanical Ventilator 03/09/18 23:00 88 19 127/57 (80) 96 03/09/18 22:40 81 18 40 03/09/18 22:00 87 18 113/56 (75) 97 03/09/18 21:37 90 139/70 03/09/18 21:00 87 18 139/70 (93) 97 03/09/18 20:49 89 17 50 03/09/18 20:00 99.0 88 18 133/66 (88) 100 99.0 03/09/18 20:00 88 03/09/18 20:00 Mechanical Ventilator 03/09/18 20:00 50 03/09/18 19:10 86 18 50 03/09/18 19:00 87 15 133/87 (102) 100 03/09/18 18:00 98.8 81 17 119/61 (80) 99 98.8 03/09/18 17:00 86 18 130/62 (84) 99 03/09/18 16:52 83 20 50 03/09/18 16:28 83 03/09/18 16:00 Mechanical Ventilator 03/09/18 16:00 50 03/09/18 16:00 84 20 114/58 (76) 100 03/09/18 15:29 76 18 50 03/09/18 15:00 86 19 114/59 (77) 97 03/09/18 14:09 95 126/63 03/09/18 14:00 99.5 94 15 126/63 (84) 99 99.5 03/09/18 13:26 95 15 50 03/09/18 13:00 92 22 129/59 (82) 99 03/09/18 12:21 90 03/09/18 12:00 Mechanical Ventilator 03/09/18 12:00 82 18 106/53 (70) 99 03/09/18 12:00 50 03/09/18 11:25 86 19 50 03/09/18 11:00 81 16 116/56 (76) 99 03/09/18 10:00 75 16 116/50 (72) 100 03/09/18 09:29 73 16 50 03/09/18 09:00 74 18 108/50 (69) 98 03/09/18 08:33 73 03/09/18 08:30 50 03/09/18 08:08 74 Intake and Output 03/09/18 03/10/18 19:00 07:00 Intake Total 940 ml 895 ml Output Total 700 ml 680 ml Balance 240 ml 215 ml Free Water 350 ml 400 ml Tube Feeding 540 ml 495 ml Other 50 ml Output Urine Total 700 ml 680 ml # Bowel Movements 4 2 Laboratory Tests 03/10/18 05:30: White Blood Count 11.8H, Red Blood Count 3.65L, Hemoglobin 9.8L, Hematocrit 31.8L, Mean Corpuscular Volume 87, Mean Corpuscular Hemoglobin 26.8L, Mean Corpuscular Hemoglobin Concent 30.7L, Red Cell Distribution Width 16.8H, Platelet Count 533H, Mean Platelet Volume 8.5, Neutrophils (%) (Auto) 75.3H, Lymphocytes (%) (Auto) 18.3L, Monocytes (%) (Auto) 4.5, Eosinophils (%) (Auto) 1.5, Basophils (%) (Auto) 0.4, Sodium Level 151H, Potassium Level 4.0, Chloride Level 110H, Carbon Dioxide Level 37H, Anion Gap 4L, Blood Urea Nitrogen 31H, Creatinine 0.4L, Estimat Glomerular Filtration Rate , Glucose Level 100, Calcium Level 8.9 Height (Feet): 4 Height (Inches): 0.00 Weight (Pounds): 99 General Appearance: WD/WN, no apparent distress EENT: PERRL/EOMI Neck: non-tender Cardiovascular: normal peripheral pulses, normal rate Respiratory/Chest: chest wall non-tender, rhonchi - bilaterally Abdomen: normal bowel sounds, non tender Edema: no edema noted Arm (L), no edema noted Arm (R), no edema noted Leg (L), no edema noted Leg (R), no edema noted Pedal (L), no edema noted Pedal (R), no edema noted Generalized Jorge Graf M.D. Mar 10, 2018 08:06
[2018-03-10] MEDS: Digoxin 0.125mg tab GT SCH (08:33)
[2018-03-10] MEDS: Ascorbic Acid 500mg tab GT SCH (08:33)
[2018-03-10] MEDS: Artificial Tears 1.4% Op Soln BOTH EYES PRN (08:34)
[2018-03-10] MEDS: Enoxaparin 30mg Inj SUBQ SCH (08:35)
--- NOTE | 2018-03-10 08:47 | Pulmonology Progress Note ---
Assessment/Plan Assessment/Plan IMPRESSION: 1. Bilateral pneumonia. Last CXR on 03/02/ shows left basilar pneumonia 2. Respiratory failure; intubated; remains hypoxemic with 80% FiO2 3. Hypertension. 4. Diabetes mellitus. 5. Dehydration, hypernatremia 6. Tardive dyskinesia 7. Anemia DISCUSSION: Discussed with PMD Will need trach Continue vent Unable to wean Await bioethics eval to allow 2 physician consent for trach as there is risk of grave injury if trach not performed soon Seen also by [employer] application developer re:DNR Subjective Interval Events: None Constitutional: Reports: no symptoms HEENT: Repors: no symptoms Respiratory: Reports: no symptoms Cardiovascular: Reports: no symptoms Gastrointestinal/Abdominal: Reports: no symptoms Allergies: Coded Allergies: No Known Allergies (Verified , 03/10/07) Objective Last 24 Hour Vital Signs Date Time Temp Pulse Resp B/P (MAP) Pulse Ox O2 Delivery O2 Flow Rate FiO2 03/10/18 08:44 84 18 40 03/10/18 08:33 78 03/10/18 07:28 78 15 40 03/10/18 07:00 98.8 80 14 122/57 (78) 100 98.8 03/10/18 06:00 87 17 111/53 (72) 100 03/10/18 05:48 86 118/57 03/10/18 05:27 84 16 40 03/10/18 05:00 86 16 118/57 (77) 100 03/10/18 04:00 83 15 102/57 (72) 95 03/10/18 04:00 83 03/10/18 04:00 Mechanical Ventilator 03/10/18 04:00 40 03/10/18 03:29 88 19 40 03/10/18 03:00 81 16 124/64 (84) 98 03/10/18 02:00 80 16 124/61 (82) 99 03/10/18 01:00 81 17 110/58 (75) 98 03/10/18 01:00 86 19 40 03/10/18 00:00 98.9 87 20 131/61 (84) 96 98.9 03/10/18 00:00 87 03/10/18 00:00 50 03/10/18 00:00 Mechanical Ventilator 03/09/18 23:00 88 19 127/57 (80) 96 03/09/18 22:40 81 18 40 7/24/18 22:00 87 18 113/56 (75) 97 03/09/18 21:37 90 139/70 03/09/18 21:00 87 18 139/70 (93) 97 03/09/18 20:49 89 17 50 03/09/18 20:00 99.0 88 18 133/66 (88) 100 99.0 03/09/18 20:00 88 03/09/18 20:00 Mechanical Ventilator 03/09/18 20:00 50 03/09/18 19:10 86 18 50 03/09/18 19:00 87 15 133/87 (102) 100 03/09/18 18:00 98.8 81 17 119/61 (80) 99 98.8 03/09/18 17:00 86 18 130/62 (84) 99 03/09/18 16:52 83 20 50 03/09/18 16:28 83 03/09/18 16:00 Mechanical Ventilator 03/09/18 16:00 50 03/09/18 16:00 84 20 114/58 (76) 100 03/09/18 15:29 76 18 50 03/09/18 15:00 86 19 114/59 (77) 97 03/09/18 14:09 95 126/63 03/09/18 14:00 99.5 94 15 126/63 (84) 99 99.5 03/09/18 13:26 95 15 50 03/09/18 13:00 92 22 129/59 (82) 99 03/09/18 12:21 90 03/09/18 12:00 Mechanical Ventilator 03/09/18 12:00 82 18 106/53 (70) 99 03/09/18 12:00 50 03/09/18 11:25 86 19 50 03/09/18 11:00 81 16 116/56 (76) 99 03/09/18 10:00 75 16 116/50 (72) 100 03/09/18 09:29 73 16 50 03/09/18 09:00 74 18 108/50 (69) 98 Intake and Output 03/09/18 03/10/18 19:00 07:00 Intake Total 940 ml 895 ml Output Total 700 ml 680 ml Balance 240 ml 215 ml Free Water 350 ml 400 ml Tube Feeding 540 ml 495 ml Other 50 ml Output Urine Total 700 ml 680 ml # Bowel Movements 4 2 General Appearance: no acute distress HEENT: normocephalic Respiratory/Chest: chest wall non-tender, lungs clear Cardiovascular: normal peripheral pulses, normal rate Abdomen: normal bowel sounds Laboratory Tests 03/10/18 05:30: White Blood Count 11.8H, Red Blood Count 3.65L, Hemoglobin 9.8L, Hematocrit 31.8L, Mean Corpuscular Volume 87, Mean Corpuscular Hemoglobin 26.8L, Mean Corpuscular Hemoglobin Concent 30.7L, Red Cell Distribution Width 16.8H, Platelet Count 533H, Mean Platelet Volume 8.5, Neutrophils (%) (Auto) 75.3H, Lymphocytes (%) (Auto) 18.3L, Monocytes (%) (Auto) 4.5, Eosinophils (%) (Auto) 1.5, Basophils (%) (Auto) 0.4, Sodium Level 151H, Potassium Level 4.0, Chloride Level 110H, Carbon Dioxide Level 37H, Anion Gap 4L, Blood Urea Nitrogen 31H, Creatinine 0.4L, Estimat Glomerular Filtration Rate , Glucose Level 100, Calcium Level 8.9 Current Medications Medications (Trade) Dose Ordered Sig/Rosetta Route PRN Reason Start Time Stop Time Status Last Admin Dose Admin Acetaminophen (Tylenol) 650 mg Q4H PRN GT Mild Pain/Temp > 100.5 02/22/18 08:00 03/10/18 15:59 03/08/18 23:26 Artificial Tears (Akwa-Tears) 2 drop Q2HR PRN BOTH EYES Dry Eyes 03/04/18 19:30 04/03/18 19:29 03/10/18 08:34 Ascorbic Acid (Vitamin C) 500 mg DAILY GT 03/08/18 09:00 04/07/18 08:59 03/10/18 08:33 Dextrose 1,000 ml @ 75 mls/hr [id number] IV 03/10/18 08:30 04/09/18 08:29 03/10/18 08:32 Dextrose (Dextrose 50%) 25 ml STAT PRN IV Hypoglycemia 03/07/18 17:00 04/06/18 16:59 Dextrose (Dextrose 50%) 50 ml STAT PRN IV Hypoglycemia 03/07/18 17:00 04/06/18 16:59 Digoxin (Lanoxin) 0.125 mg DAILY GT 03/08/18 09:00 04/07/18 08:59 03/10/18 08:33 Diltiazem HCl (Cardizem) 90 mg EVERY 8 HOURS GT 03/08/18 14:00 03/12/18 21:59 03/10/18 05:48 Enoxaparin Sodium (Lovenox) 30 mg Q24H SUBQ 02/22/18 09:00 03/13/18 08:59 03/10/18 08:35 Famotidine (Pepcid) 20 mg DAILY GT 02/22/18 09:00 03/10/18 08:59 03/10/18 08:33 Insulin Aspart (NovoLOG) BEFORE MEALS AND HS SUBQ 03/07/18 21:00 04/06/18 20:59 03/10/18 05:49 Lorazepam (Ativan) 2 mg Q6H PRN GT For Anxiety 03/08/18 11:46 03/15/18 11:45 Jan Sawant MD Mar 10, 2018 08:47
--- NOTE | 2018-03-10 14:06 | Infectious Diseases Prog Note ---
Assessment/Plan Problems: (1) HCAP (healthcare-associated pneumonia) Assessment & Plan: S/P intubation due to worsening respiratory failure . S/P meropenem empiric coverage for pneumonia, with no new infiltrates and stable lungs infiltrates , repeated sputum culture grew MDR acinetobacter baumannii , most likely contaminant since she is not febrile with no increase in her secretions, repeated CXR ruled out any new infiltrates . will monitor off antibiotics . pulmonary is following. (2) Leukocytosis Assessment & Plan: suspect reactive with negative repeated blood culture , trending down , will monitor clinically , continue tylenol as needed . S/P Sarkar exchange . 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 continue local wound care and dressing changes as per hospital protocol . followed by general surgery. already on meropenem (4) Acute respiratory failure Assessment & Plan: now chronic and ventilator dependant , pulmonary is following, monitor CXR and ABG . she may need tracheostomy (5) Low grade fever Assessment & Plan: repeated blood culture is negative. repeated CXR showed improvement in her aeration . sarkar catheter was exchanged , continue tylenol as needed , monitor clinically Subjective ROS Limited/Unobtainable: Yes Allergies: Coded Allergies: No Known Allergies (Verified , 03/10/07) Subjective she is intubated on mechanical ventilation in ICU, alert and comfortable, no fever, no chills , no diarrhea . urine is clear Objective Vital Signs Last 24 Hour Vital Signs Date Time Temp Pulse Resp B/P (MAP) Pulse Ox O2 Delivery O2 Flow Rate FiO2 03/10/18 13:10 80 15 40 03/10/18 13:00 83 17 139/65 (89) 93 03/10/18 12:00 40 03/10/18 12:00 Mechanical Ventilator 03/10/18 12:00 99.1 81 17 120/61 (80) 100 99.1 03/10/18 11:04 78 16 40 03/10/18 11:00 76 17 128/63 (84) 100 03/10/18 10:00 79 16 129/64 (85) 100 03/10/18 09:00 84 16 132/60 (84) 100 03/10/18 08:44 84 18 40 03/10/18 08:33 78 03/10/18 08:06 79 03/10/18 08:00 Mechanical Ventilator 03/10/18 08:00 79 17 106/51 (69) 100 03/10/18 08:00 40 03/10/18 07:28 78 15 40 03/10/18 07:00 98.8 80 14 122/57 (78) 100 98.8 03/10/18 06:00 87 17 111/53 (72) 100 03/10/18 05:48 86 118/57 03/10/18 05:27 84 16 40 03/10/18 05:00 86 16 118/57 (77) 100 03/10/18 04:00 83 15 102/57 (72) 95 03/10/18 04:00 83 03/10/18 04:00 Mechanical Ventilator 03/10/18 04:00 40 03/10/18 03:29 88 19 40 03/10/18 03:00 81 16 124/64 (84) 98 03/10/18 02:00 80 16 124/61 (82) 99 03/10/18 01:00 81 17 110/58 (75) 98 03/10/18 01:00 86 19 40 03/10/18 00:00 98.9 87 20 131/61 (84) 96 98.9 03/10/18 00:00 87 03/10/18 00:00 50 03/10/18 00:00 Mechanical Ventilator 03/09/18 23:00 88 19 127/57 (80) 96 03/09/18 22:40 81 18 40 03/09/18 22:00 87 18 113/56 (75) 97 03/09/18 21:37 90 139/70 03/09/18 21:00 87 18 139/70 (93) 97 03/09/18 20:49 89 17 50 03/09/18 20:00 99.0 88 18 133/66 (88) 100 99.0 03/09/18 20:00 88 03/09/18 20:00 Mechanical Ventilator 03/09/18 20:00 50 03/09/18 19:10 86 18 50 03/09/18 19:00 87 15 133/87 (102) 100 03/09/18 18:00 98.8 81 17 119/61 (80) 99 98.8 03/09/18 17:00 86 18 130/62 (84) 99 03/09/18 16:52 83 20 50 7/24/18 16:28 83 03/09/18 16:00 Mechanical Ventilator 03/09/18 16:00 50 03/09/18 16:00 84 20 114/58 (76) 100 03/09/18 15:29 76 18 50 03/09/18 15:00 86 19 114/59 (77) 97 03/09/18 14:09 95 126/63 Height (Feet): 4 Height (Inches): 0.00 Weight (Pounds): 99 General Appearance: WD/WN, no acute distress, cachetic HEENT: normocephalic, atraumatic, anicteric, supple, no JVD Respiratory/Chest: chest wall non-tender, lungs clear, normal breath sounds, no respiratory distress, no accessory muscle use Cardiovascular: normal peripheral pulses, normal rate, regular rhythm, no gallop/murmur, no JVD Abdomen: normal bowel sounds, soft, non tender, no organomegaly, non distended , no mass Extremities: no cyanosis, no clubbing Skin: no rash, no lesions, ulcers Neurologic/Psychiatric: alert, unresponsiveness Lymphatic: no neck adenopathy, no groin adenopathy Musculoskeletal: normal muscle bulk, no effusion Laboratory Tests Test 03/10/18 05:30 White Blood Count 11.8 K/UL (4.8-10.8) H Red Blood Count 3.65 M/UL (4.20-5.40) L Hemoglobin 9.8 G/DL (12.0-16.0) L Hematocrit 31.8 % (37.0-47.0) L Mean Corpuscular Volume 87 FL (80-99) Mean Corpuscular Hemoglobin 26.8 PG (27.0-31.0) L Mean Corpuscular Hemoglobin Concent 30.7 G/DL (32.0-36.0) L Red Cell Distribution Width 16.8 % (11.6-14.8) H Platelet Count 533 K/UL (150-450) H Mean Platelet Volume 8.5 FL (6.5-10.1) Neutrophils (%) (Auto) 75.3 % (45.0-75.0) H Lymphocytes (%) (Auto) 18.3 % (20.0-45.0) L Monocytes (%) (Auto) 4.5 % (1.0-10.0) Eosinophils (%) (Auto) 1.5 % (0.0-3.0) Basophils (%) (Auto) 0.4 % (0.0-2.0) Sodium Level 151 MMOL/L (136-145) H Potassium Level 4.0 MMOL/L (3.5-5.1) Chloride Level 110 MMOL/L (98-107) H Carbon Dioxide Level 37 MMOL/L (21-32) H Anion Gap 4 mmol/L (5-15) L Blood Urea Nitrogen 31 mg/dL (7-18) H Creatinine 0.4 MG/DL (0.55-1.30) L Estimat Glomerular Filtration Rate mL/min (>60) Glucose Level 100 MG/DL (74-106) Calcium Level 8.9 MG/DL (8.5-10.1) Current Medications Medications (Trade) Dose Ordered Sig/Rosetta Route PRN Reason Start Time Stop Time Status Last Admin Dose Admin Acetaminophen (Tylenol) 650 mg Q4H PRN GT Mild Pain/Temp > 100.5 02/22/18 08:00 04/09/18 07:59 03/08/18 23:26 Artificial Tears (Akwa-Tears) 2 drop Q2HR PRN BOTH EYES Dry Eyes 03/04/18 19:30 04/03/18 19:29 03/10/18 08:34 Ascorbic Acid (Vitamin C) 500 mg DAILY GT 03/08/18 09:00 04/07/18 08:59 03/10/18 08:33 Dextrose 1,000 ml @ 75 mls/hr [id number] IV 03/10/18 08:30 04/09/18 08:29 03/10/18 08:32 Dextrose (Dextrose 50%) 25 ml STAT PRN IV Hypoglycemia 03/07/18 17:00 04/06/18 16:59 Dextrose (Dextrose 50%) 50 ml STAT PRN IV Hypoglycemia 03/07/18 17:00 04/06/18 16:59 Digoxin (Lanoxin) 0.125 mg DAILY GT 03/08/18 09:00 04/07/18 08:59 03/10/18 08:33 Diltiazem HCl (Cardizem) 90 mg EVERY 8 HOURS GT 03/08/18 14:00 04/09/18 13:59 03/10/18 05:48 Enoxaparin Sodium (Lovenox) 30 mg Q24H SUBQ 02/22/18 09:00 03/13/18 08:59 03/10/18 08:35 Insulin Aspart (NovoLOG) BEFORE MEALS AND HS SUBQ 03/07/18 21:00 04/06/18 20:59 03/10/18 12:51 Lorazepam (Ativan) 2 mg Q6H PRN GT For Anxiety 03/08/18 11:46 03/15/18 11:45 Dom Hoffman M.D. Mar 10, 2018 14:06
--- NOTE | 2018-03-10 14:42 | Cardiac Electrophysiology PN ---
Assessment/Plan Assessment/Plan 1. Paroxysmal atrial fibrillation. In SR on digoxin 0.125 mg daily and Cardizem 90 tid. Off anticoagulation. Echo Nl EF. 2. Hypertension. On Cardizem 90 tid 3. Respiratory failure, on Vent in ICU. Trach pending consent from Conservator 4. Diabetes, on insulin. 5. Dementia. 6. Dysphagia, status post PEG 7. Sacral decubitus stage III. FU by Dr. Austin. 8. CVA with aphasia and contractures. DW RN Subjective Subjective In ICU on the vent vie ETT. Off pressors. No arrhythmia. Objective Last 24 Hour Vital Signs Date Time Temp Pulse Resp B/P (MAP) Pulse Ox O2 Delivery O2 Flow Rate FiO2 03/10/18 14:00 86 17 137/73 (94) 95 03/10/18 13:10 80 15 40 03/10/18 13:00 83 17 139/65 (89) 93 03/10/18 12:00 40 03/10/18 12:00 Mechanical Ventilator 03/10/18 12:00 99.1 81 17 120/61 (80) 100 99.1 03/10/18 11:04 78 16 40 03/10/18 11:00 76 17 128/63 (84) 100 03/10/18 10:00 79 16 129/64 (85) 100 03/10/18 09:00 84 16 132/60 (84) 100 03/10/18 08:44 84 18 40 03/10/18 08:33 78 03/10/18 08:06 79 03/10/18 08:00 Mechanical Ventilator 03/10/18 08:00 79 17 106/51 (69) 100 03/10/18 08:00 40 03/10/18 07:28 78 15 40 03/10/18 07:00 98.8 80 14 122/57 (78) 100 98.8 03/10/18 06:00 87 17 111/53 (72) 100 03/10/18 05:48 86 118/57 03/10/18 05:27 84 16 40 03/10/18 05:00 86 16 118/57 (77) 100 03/10/18 04:00 83 15 102/57 (72) 95 03/10/18 04:00 83 03/10/18 04:00 Mechanical Ventilator 03/10/18 04:00 40 03/10/18 03:29 88 19 40 03/10/18 03:00 81 16 124/64 (84) 98 03/10/18 02:00 80 16 124/61 (82) 99 03/10/18 01:00 81 17 110/58 (75) 98 03/10/18 01:00 86 19 40 03/10/18 00:00 98.9 87 20 131/61 (84) 96 98.9 03/10/18 00:00 87 03/10/18 00:00 50 03/10/18 00:00 Mechanical Ventilator 03/09/18 23:00 88 19 127/57 (80) 96 03/09/18 22:40 81 18 40 03/09/18 22:00 87 18 113/56 (75) 97 03/09/18 21:37 90 139/70 03/09/18 21:00 87 18 139/70 (93) 97 03/09/18 20:49 89 17 50 03/09/18 20:00 99.0 88 18 133/66 (88) 100 99.0 03/09/18 20:00 88 03/09/18 20:00 Mechanical Ventilator 03/09/18 20:00 50 03/09/18 19:10 86 18 50 03/09/18 19:00 87 15 133/87 (102) 100 03/09/18 18:00 98.8 81 17 119/61 (80) 99 98.8 03/09/18 17:00 86 18 130/62 (84) 99 03/09/18 16:52 83 20 50 03/09/18 16:28 83 03/09/18 16:00 Mechanical Ventilator 03/09/18 16:00 50 03/09/18 16:00 84 20 114/58 (76) 100 03/09/18 15:29 76 18 50 03/09/18 15:00 86 19 114/59 (77) 97 Intake and Output 03/09/18 03/10/18 19:00 07:00 Intake Total 940 ml 940 ml Output Total 700 ml 730 ml Balance 240 ml 210 ml Free Water 350 ml 400 ml Tube Feeding 540 ml 540 ml Other 50 ml Output Urine Total 700 ml 730 ml # Bowel Movements 4 2 Laboratory Tests Test 03/10/18 05:30 White Blood Count 11.8 K/UL (4.8-10.8) H Red Blood Count 3.65 M/UL (4.20-5.40) L Hemoglobin 9.8 G/DL (12.0-16.0) L Hematocrit 31.8 % (37.0-47.0) L Mean Corpuscular Volume 87 FL (80-99) Mean Corpuscular Hemoglobin 26.8 PG (27.0-31.0) L Mean Corpuscular Hemoglobin Concent 30.7 G/DL (32.0-36.0) L Red Cell Distribution Width 16.8 % (11.6-14.8) H Platelet Count 533 K/UL (150-450) H Mean Platelet Volume 8.5 FL (6.5-10.1) Neutrophils (%) (Auto) 75.3 % (45.0-75.0) H Lymphocytes (%) (Auto) 18.3 % (20.0-45.0) L Monocytes (%) (Auto) 4.5 % (1.0-10.0) Eosinophils (%) (Auto) 1.5 % (0.0-3.0) Basophils (%) (Auto) 0.4 % (0.0-2.0) Sodium Level 151 MMOL/L (136-145) H Potassium Level 4.0 MMOL/L (3.5-5.1) Chloride Level 110 MMOL/L (98-107) H Carbon Dioxide Level 37 MMOL/L (21-32) H Anion Gap 4 mmol/L (5-15) L Blood Urea Nitrogen 31 mg/dL (7-18) H Creatinine 0.4 MG/DL (0.55-1.30) L Estimat Glomerular Filtration Rate mL/min (>60) Glucose Level 100 MG/DL (74-106) Calcium Level 8.9 MG/DL (8.5-10.1) Objective HEAD AND NECK: No JVD. Orally intubated LUNGS: Coarse rhonchi CARDIOVASCULAR: Tachy S1 and S2 with no murmur. ABDOMEN: Status post G-tube. EXTREMITIES: Sacral decubitus. Emmanuel Edgar MD Mar 10, 2018 14:42
--- NOTE | 2018-03-10 14:46 | General Progress Note ---
Assessment/Plan Assessment/Plan Dementia encephalopathy the pt lacks capacity to make decisions haldol prn ativan gt prn Subjective Date patient seen: Mar 10, 2018 Allergies: Coded Allergies: No Known Allergies (Verified , 03/10/07) Subjective the pt is confused lethargic. the pt has severe cognitive impairment. the pt agitated Objective Last 24 Hour Vital Signs Date Time Temp Pulse Resp B/P (MAP) Pulse Ox O2 Delivery O2 Flow Rate FiO2 03/10/18 14:43 86 137/73 03/10/18 14:00 86 17 137/73 (94) 95 03/10/18 13:10 80 15 40 03/10/18 13:00 83 17 139/65 (89) 93 03/10/18 12:15 83 03/10/18 12:00 40 03/10/18 12:00 Mechanical Ventilator 03/10/18 12:00 99.1 81 17 120/61 (80) 100 99.1 03/10/18 11:04 78 16 40 03/10/18 11:00 76 17 128/63 (84) 100 03/10/18 10:00 79 16 129/64 (85) 100 03/10/18 09:00 84 16 132/60 (84) 100 03/10/18 08:44 84 18 40 03/10/18 08:33 78 03/10/18 08:06 79 03/10/18 08:00 Mechanical Ventilator 03/10/18 08:00 79 17 106/51 (69) 100 03/10/18 08:00 40 03/10/18 07:28 78 15 40 03/10/18 07:00 98.8 80 14 122/57 (78) 100 98.8 03/10/18 06:00 87 17 111/53 (72) 100 03/10/18 05:48 86 118/57 03/10/18 05:27 84 16 40 03/10/18 05:00 86 16 118/57 (77) 100 03/10/18 04:00 83 15 102/57 (72) 95 03/10/18 04:00 83 03/10/18 04:00 Mechanical Ventilator 03/10/18 04:00 40 03/10/18 03:29 88 19 40 03/10/18 03:00 81 16 124/64 (84) 98 7/25/18 02:00 80 16 124/61 (82) 99 03/10/18 01:00 81 17 110/58 (75) 98 03/10/18 01:00 86 19 40 03/10/18 00:00 98.9 87 20 131/61 (84) 96 98.9 03/10/18 00:00 87 03/10/18 00:00 50 03/10/18 00:00 Mechanical Ventilator 03/09/18 23:00 88 19 127/57 (80) 96 03/09/18 22:40 81 18 40 03/09/18 22:00 87 18 113/56 (75) 97 03/09/18 21:37 90 139/70 03/09/18 21:00 87 18 139/70 (93) 97 03/09/18 20:49 89 17 50 03/09/18 20:00 99.0 88 18 133/66 (88) 100 99.0 03/09/18 20:00 88 03/09/18 20:00 Mechanical Ventilator 03/09/18 20:00 50 03/09/18 19:10 86 18 50 03/09/18 19:00 87 15 133/87 (102) 100 03/09/18 18:00 98.8 81 17 119/61 (80) 99 98.8 03/09/18 17:00 86 18 130/62 (84) 99 03/09/18 16:52 83 20 50 03/09/18 16:28 83 03/09/18 16:00 Mechanical Ventilator 03/09/18 16:00 50 03/09/18 16:00 84 20 114/58 (76) 100 03/09/18 15:29 76 18 50 03/09/18 15:00 86 19 114/59 (77) 97 Intake and Output 03/09/18 03/10/18 19:00 07:00 Intake Total 940 ml 940 ml Output Total 700 ml 730 ml Balance 240 ml 210 ml Free Water 350 ml 400 ml Tube Feeding 540 ml 540 ml Other 50 ml Output Urine Total 700 ml 730 ml # Bowel Movements 4 2 Laboratory Tests 03/10/18 05:30: White Blood Count 11.8H, Red Blood Count 3.65L, Hemoglobin 9.8L, Hematocrit 31.8L, Mean Corpuscular Volume 87, Mean Corpuscular Hemoglobin 26.8L, Mean Corpuscular Hemoglobin Concent 30.7L, Red Cell Distribution Width 16.8H, Platelet Count 533H, Mean Platelet Volume 8.5, Neutrophils (%) (Auto) 75.3H, Lymphocytes (%) (Auto) 18.3L, Monocytes (%) (Auto) 4.5, Eosinophils (%) (Auto) 1.5, Basophils (%) (Auto) 0.4, Sodium Level 151H, Potassium Level 4.0, Chloride Level 110H, Carbon Dioxide Level 37H, Anion Gap 4L, Blood Urea Nitrogen 31H, Creatinine 0.4L, Estimat Glomerular Filtration Rate , Glucose Level 100, Calcium Level 8.9 Height (Feet): 4 Height (Inches): 0.00 Weight (Pounds): 99 Darling Baker MD Mar 10, 2018 14:46
[2018-03-11] VITALS (24 sets, daily range): BP systolic 90–161; BP diastolic 50–78
[2018-03-11] MEDS: dilTIAZem HCl 90mg tab GT SCH ×3 (05:34→21:31)
[2018-03-11 05:41] LABS: ANION GAP 2 mmol/L (5-15); BLOOD UREA NITROGEN 19 mg/dL (7-18); CALCIUM 8.1 MG/DL (8.5-10.1); CARBON DIOXIDE 34 MMOL/L (21-32); CHLORIDE 102 MMOL/L (98-107); CREATININE 0.4 MG/DL (0.55-1.30); POTASSIUM 4.1 MMOL/L (3.5-5.1); SODIUM 138 MMOL/L (136-145)
[2018-03-11] MEDS: NovoLOG Insulin Flexpen SUBQ SCH ×4 (06:04→21:00)
--- NOTE | 2018-03-11 08:05 | Nephrology Progress Note ---
Assessment/Plan Assessment/Plan 1. Sepsis - Abx per ID. 2. Sacral Decub- Gen Surg mgmt/wound care 3. Hyernatremia- increased free water thru GTube. Resolved 4. Resp FL- Patient intubated - awaiting documentation from Cart[employer] Filling Machine Operator/court for withdrawl of care today 5. AFib- digoxin + cardizem 6. DVT prophylaxis- lovenox Subjective Date patient seen: Mar 11, 2018 Time patient seen: 08:03 ROS Limited/Unobtainable: Yes Allergies: Coded Allergies: No Known Allergies (Verified , 03/10/07) Subjective Patient remains intubated. Court order withdrawl of care today Objective Last 24 Hour Vital Signs Date Time Temp Pulse Resp B/P (MAP) Pulse Ox O2 Delivery O2 Flow Rate FiO2 03/11/18 07:00 74 16 132/60 (84) 99 03/11/18 06:00 71 15 129/61 (83) 98 03/11/18 05:34 80 141/78 03/11/18 05:21 80 16 40 03/11/18 05:00 77 15 141/78 (99) 98 03/11/18 04:00 Mechanical Ventilator 03/11/18 04:00 80 03/11/18 04:00 40 03/11/18 04:00 98.5 80 17 129/70 (89) 97 98.5 03/11/18 03:00 79 16 128/66 (86) 97 03/11/18 02:55 81 16 40 03/11/18 02:00 80 18 135/66 (89) 97 03/11/18 01:05 77 15 40 03/11/18 01:00 79 16 128/66 (86) 97 03/11/18 00:00 Mechanical Ventilator 03/11/18 00:00 40 03/11/18 00:00 78 03/11/18 00:00 98.7 98 16 122/66 (84) 97 98.7 03/10/18 23:01 81 15 40 03/10/18 23:00 79 15 132/57 (82) 97 03/10/18 22:26 76 126/66 03/10/18 22:00 77 16 127/66 (86) 97 03/10/18 21:00 80 17 132/65 (87) 97 03/10/18 21:00 82 18 40 03/10/18 20:00 Mechanical Ventilator 03/10/18 20:00 82 03/10/18 20:00 98.3 82 17 135/66 (89) 97 98.3 03/10/18 20:00 40 03/10/18 19:08 89 23 40 03/10/18 19:00 87 23 139/68 (91) 100 03/10/18 18:00 98.8 78 14 121/57 (78) 97 98.8 03/10/18 17:09 86 15 40 03/10/18 17:00 75 16 123/66 (85) 97 03/10/18 16:00 77 03/10/18 16:00 40 03/10/18 16:00 Mechanical Ventilator 03/10/18 16:00 75 15 105/56 (72) 97 03/10/18 15:17 82 15 40 03/10/18 15:00 75 15 116/59 (78) 100 03/10/18 14:43 86 137/73 03/10/18 14:00 86 17 137/73 (94) 95 03/10/18 13:10 80 15 40 03/10/18 13:00 83 17 139/65 (89) 93 03/10/18 12:15 83 03/10/18 12:00 40 03/10/18 12:00 Mechanical Ventilator 03/10/18 12:00 99.1 81 17 120/61 (80) 100 99.1 03/10/18 11:04 78 16 40 03/10/18 11:00 76 17 128/63 (84) 100 03/10/18 10:00 79 16 129/64 (85) 100 03/10/18 09:00 84 16 132/60 (84) 100 03/10/18 08:44 84 18 40 03/10/18 08:33 78 03/10/18 08:06 79 Intake and Output 03/10/18 03/11/18 19:00 07:00 Intake Total 1802 ml 1665 ml Output Total 550 ml 640 ml Balance 1252 ml 1025 ml Free Water 300 ml 300 ml IV Total 862 ml 825 ml Tube Feeding 540 ml 540 ml Other 100 ml Output Urine Total 550 ml 640 ml # Bowel Movements 2 4 Laboratory Tests 03/11/18 04:49: Sodium Level 138#, Potassium Level 4.1, Chloride Level 102, Carbon Dioxide Level 34H, Anion Gap 2L, Blood Urea Nitrogen 19H, Creatinine 0.4L, Estimat Glomerular Filtration Rate , Glucose Level 93, Calcium Level 8.1L Height (Feet): 4 Height (Inches): 0.00 Weight (Pounds): 98 General Appearance: WD/WN EENT: PERRL/EOMI Neck: non-tender, normal alignment Cardiovascular: normal peripheral pulses, normal rate Respiratory/Chest: rhonchi - bilaterally Abdomen: normal bowel sounds, non tender, soft Edema: no edema noted Arm (L), no edema noted Arm (R), no edema noted Leg (L), no edema noted Leg (R), no edema noted Pedal (L), no edema noted Pedal (R), no edema noted Generalized Jorge Graf M.D. Mar 11, 2018 08:05
[2018-03-11] MEDS ORDERED: Heparin 5000 units/ml inj SUBQ SCH (09:00)
[2018-03-11] MEDS ORDERED: Pantoprazole Inj IVP SCH (09:00)
[2018-03-11] MEDS: Ascorbic Acid 500mg tab GT SCH (09:18)
[2018-03-11] MEDS: Digoxin 0.125mg tab GT SCH (09:19)
[2018-03-11] MEDS: Enoxaparin 30mg Inj SUBQ SCH (09:19)
--- NOTE | 2018-03-11 10:23 | Cardiac Electrophysiology PN ---
Assessment/Plan Assessment/Plan 1. Paroxysmal atrial fibrillation. In SR on digoxin 0.125 mg daily and Cardizem 90 tid. Off anticoagulation. Echo Nl EF. 2. Hypertension. On Cardizem 90 tid 3. Respiratory failure, on Vent in ICU. Trach vs Terminal extubation pending Conservator decision 4. Diabetes, on insulin. 5. Dementia. 6. Dysphagia, status post PEG 7. Sacral decubitus stage III. FU by Dr. Austin. 8. CVA with aphasia and contractures. 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 Off pressors. No arrhythmia. Still awaiting public guardian decision. Objective Last 24 Hour Vital Signs Date Time Temp Pulse Resp B/P (MAP) Pulse Ox O2 Delivery O2 Flow Rate FiO2 03/11/18 09:23 77 16 40 03/11/18 09:19 81 03/11/18 07:00 74 16 132/60 (84) 99 03/11/18 06:41 84 16 40 03/11/18 06:00 71 15 129/61 (83) 98 03/11/18 05:34 80 141/78 03/11/18 05:21 80 16 40 03/11/18 05:00 77 15 141/78 (99) 98 03/11/18 04:00 Mechanical Ventilator 03/11/18 04:00 80 03/11/18 04:00 40 03/11/18 04:00 98.5 80 17 129/70 (89) 97 98.5 03/11/18 03:00 79 16 128/66 (86) 97 03/11/18 02:55 81 16 40 03/11/18 02:00 80 18 135/66 (89) 97 03/11/18 01:05 77 15 40 03/11/18 01:00 79 16 128/66 (86) 97 03/11/18 00:00 Mechanical Ventilator 03/11/18 00:00 40 03/11/18 00:00 78 03/11/18 00:00 98.7 98 16 122/66 (84) 97 98.7 03/10/18 23:01 81 15 40 03/10/18 23:00 79 15 132/57 (82) 97 03/10/18 22:26 76 126/66 03/10/18 22:00 77 16 127/66 (86) 97 03/10/18 21:00 80 17 132/65 (87) 97 03/10/18 21:00 82 18 40 03/10/18 20:00 Mechanical Ventilator 03/10/18 20:00 82 03/10/18 20:00 98.3 82 17 135/66 (89) 97 98.3 03/10/18 20:00 40 03/10/18 19:08 89 23 40 03/10/18 19:00 87 23 139/68 (91) 100 03/10/18 18:00 98.8 78 14 121/57 (78) 97 98.8 03/10/18 17:09 86 15 40 03/10/18 17:00 75 16 123/66 (85) 97 03/10/18 16:00 77 03/10/18 16:00 40 03/10/18 16:00 Mechanical Ventilator 03/10/18 16:00 75 15 105/56 (72) 97 03/10/18 15:17 82 15 40 03/10/18 15:00 75 15 116/59 (78) 100 03/10/18 14:43 86 137/73 03/10/18 14:00 86 17 137/73 (94) 95 03/10/18 13:10 80 15 40 03/10/18 13:00 83 17 139/65 (89) 93 03/10/18 12:15 83 03/10/18 12:00 40 03/10/18 12:00 Mechanical Ventilator 03/10/18 12:00 99.1 81 17 120/61 (80) 100 99.1 03/10/18 11:04 78 16 40 03/10/18 11:00 76 17 128/63 (84) 100 Intake and Output 03/10/18 03/11/18 19:00 07:00 Intake Total 1802 ml 1665 ml Output Total 550 ml 640 ml Balance 1252 ml 1025 ml Free Water 300 ml 300 ml IV Total 862 ml 825 ml Tube Feeding 540 ml 540 ml Other 100 ml Output Urine Total 550 ml 640 ml # Bowel Movements 2 4 Laboratory Tests Test 03/11/18 04:49 Sodium Level 138 MMOL/L (136-145) # Potassium Level 4.1 MMOL/L (3.5-5.1) Chloride Level 102 MMOL/L (98-107) Carbon Dioxide Level 34 MMOL/L (21-32) H Anion Gap 2 mmol/L (5-15) L Blood Urea Nitrogen 19 mg/dL (7-18) H Creatinine 0.4 MG/DL (0.55-1.30) L Estimat Glomerular Filtration Rate mL/min (>60) Glucose Level 93 MG/DL (74-106) Calcium Level 8.1 MG/DL (8.5-10.1) L Objective HEAD AND NECK: No JVD. Orally intubated LUNGS: Coarse rhonchi CARDIOVASCULAR: Regular S1 and S2 with no murmur. ABDOMEN: Status post G-tube. EXTREMITIES: Sacral decubitus. Emmanuel Edgar MD Mar 11, 2018 10:23
--- NOTE | 2018-03-11 11:26 | Diagnostic Imaging Report ---
Indication: Dyspnea Technique: One view of the chest Comparison: 03/08/2018 Findings: Stable satisfactory position of endotracheal tube. Bilateral diffuse interstitial and airspace opacities, probably the former, are again demonstrated, with less extensive airspace disease currently seen in the left lung base. Normal heart size. Gastrostomy tube is noted Impression: Slight improvement of pulmonary frontal disease on the left, over 3 days Other stable findings as described
--- NOTE | 2018-03-11 12:24 | General Progress Note ---
Assessment/Plan Status: unchanged, deteriorating Assessment/Plan Dementia encephalopathy the pt lacks capacity to make decisions haldol prn ativan gt prn Subjective Date patient seen: Mar 11, 2018 Neurologic/Psychiatric: Reports: anxiety, depressed Allergies: Coded Allergies: No Known Allergies (Verified , 03/10/07) Subjective the pt is confused lethargic. the pt is agitated. Objective Last 24 Hour Vital Signs Date Time Temp Pulse Resp B/P (MAP) Pulse Ox O2 Delivery O2 Flow Rate FiO2 03/11/18 12:00 82 03/11/18 11:17 86 18 40 03/11/18 10:00 81 17 134/65 (88) 99 03/11/18 09:23 77 16 40 03/11/18 09:19 81 03/11/18 09:00 76 15 130/72 (91) 97 03/11/18 08:00 Mechanical Ventilator 03/11/18 08:00 40 03/11/18 08:00 79 03/11/18 08:00 98.8 77 16 131/68 (89) 99 98.8 03/11/18 07:00 74 16 132/60 (84) 99 03/11/18 06:41 84 16 40 03/11/18 06:00 71 15 129/61 (83) 98 03/11/18 05:34 80 141/78 03/11/18 05:21 80 16 40 03/11/18 05:00 77 15 141/78 (99) 98 03/11/18 04:00 Mechanical Ventilator 03/11/18 04:00 80 03/11/18 04:00 40 03/11/18 04:00 98.5 80 17 129/70 (89) 97 98.5 03/11/18 03:00 79 16 128/66 (86) 97 03/11/18 02:55 81 16 40 03/11/18 02:00 80 18 135/66 (89) 97 03/11/18 01:05 77 15 40 03/11/18 01:00 79 16 128/66 (86) 97 03/11/18 00:00 Mechanical Ventilator 03/11/18 00:00 40 03/11/18 00:00 78 03/11/18 00:00 98.7 98 16 122/66 (84) 97 98.7 03/10/18 23:01 81 15 40 03/10/18 23:00 79 15 132/57 (82) 97 03/10/18 22:26 76 126/66 03/10/18 22:00 77 16 127/66 (86) 97 03/10/18 21:00 80 17 132/65 (87) 97 03/10/18 21:00 82 18 40 03/10/18 20:00 Mechanical Ventilator 03/10/18 20:00 82 03/10/18 20:00 98.3 82 17 135/66 (89) 97 98.3 03/10/18 20:00 40 03/10/18 19:08 89 23 40 03/10/18 19:00 87 23 139/68 (91) 100 03/10/18 18:00 98.8 78 14 121/57 (78) 97 98.8 03/10/18 17:09 86 15 40 03/10/18 17:00 75 16 123/66 (85) 97 03/10/18 16:00 77 03/10/18 16:00 40 03/10/18 16:00 Mechanical Ventilator 03/10/18 16:00 75 15 105/56 (72) 97 03/10/18 15:17 82 15 40 03/10/18 15:00 75 15 116/59 (78) 100 03/10/18 14:43 86 137/73 03/10/18 14:00 86 17 137/73 (94) 95 03/10/18 13:10 80 15 40 03/10/18 13:00 83 17 139/65 (89) 93 Intake and Output 03/10/18 03/11/18 19:00 07:00 Intake Total 1802 ml 1665 ml Output Total 550 ml 640 ml Balance 1252 ml 1025 ml Free Water 300 ml 300 ml IV Total 862 ml 825 ml Tube Feeding 540 ml 540 ml Other 100 ml Output Urine Total 550 ml 640 ml # Bowel Movements 2 4 Laboratory Tests 03/11/18 04:49: Sodium Level 138#, Potassium Level 4.1, Chloride Level 102, Carbon Dioxide Level 34H, Anion Gap 2L, Blood Urea Nitrogen 19H, Creatinine 0.4L, Estimat Glomerular Filtration Rate , Glucose Level 93, Calcium Level 8.1L Height (Feet): 4 Height (Inches): 0.00 Weight (Pounds): 98 General Appearance: no apparent distress, lethargic, agitated Neurologic: depressed affect Darling Baker MD Mar 11, 2018 12:24
--- NOTE | 2018-03-11 15:26 | Infectious Diseases Prog Note ---
Assessment/Plan Problems: (1) HCAP (healthcare-associated pneumonia) Assessment & Plan: S/P intubation due to worsening respiratory failure , now ventilator dependant . S/P meropenem empiric coverage for pneumonia, with no new infiltrates and stable lungs infiltrates , repeated sputum culture grew MDR acinetobacter baumannii , most likely contaminant since she is not febrile with no increase in her secretions, repeated CXR ruled out any new infiltrates . will monitor off antibiotics . pulmonary is following. (2) Leukocytosis Assessment & Plan: suspect reactive with negative repeated blood culture , trending down , will monitor clinically , continue tylenol as needed . S/P Sarkar exchange . 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 continue local wound care and dressing changes as per hospital protocol . followed by general surgery. already on meropenem (4) Acute respiratory failure Assessment & Plan: now chronic and ventilator dependant , pulmonary is following, monitor CXR and ABG . she may need tracheostomy (5) Low grade fever Assessment & Plan: repeated blood culture is negative. repeated CXR showed improvement in her aeration . sarkar catheter was exchanged , continue tylenol as needed , monitor clinically. keep off antibiotics for now Subjective ROS Limited/Unobtainable: Yes Allergies: Coded Allergies: No Known Allergies (Verified , 03/10/07) Subjective she is intubated on mechanical ventilation in ICU, alert and comfortable, no fever, no chills , no diarrhea . urine is clear Objective Vital Signs Last 24 Hour Vital Signs Date Time Temp Pulse Resp B/P (MAP) Pulse Ox O2 Delivery O2 Flow Rate FiO2 03/11/18 15:09 99 161/68 03/11/18 13:15 82 15 40 03/11/18 12:00 Mechanical Ventilator 03/11/18 12:00 40 03/11/18 12:00 82 03/11/18 12:00 98.7 80 18 130/62 (84) 99 98.7 03/11/18 11:17 86 18 40 03/11/18 11:00 81 17 134/65 (88) 99 03/11/18 10:00 81 17 134/65 (88) 99 03/11/18 09:23 77 16 40 03/11/18 09:19 81 03/11/18 09:00 76 15 130/72 (91) 97 03/11/18 08:00 Mechanical Ventilator 03/11/18 08:00 40 03/11/18 08:00 79 03/11/18 08:00 98.8 77 16 131/68 (89) 99 98.8 03/11/18 07:00 74 16 132/60 (84) 99 03/11/18 06:41 84 16 40 03/11/18 06:00 71 15 129/61 (83) 98 03/11/18 05:34 80 141/78 03/11/18 05:21 80 16 40 03/11/18 05:00 77 15 141/78 (99) 98 03/11/18 04:00 Mechanical Ventilator 03/11/18 04:00 80 03/11/18 04:00 40 03/11/18 04:00 98.5 80 17 129/70 (89) 97 98.5 03/11/18 03:00 79 16 128/66 (86) 97 03/11/18 02:55 81 16 40 03/11/18 02:00 80 18 135/66 (89) 97 03/11/18 01:05 77 15 40 03/11/18 01:00 79 16 128/66 (86) 97 03/11/18 00:00 Mechanical Ventilator 03/11/18 00:00 40 03/11/18 00:00 78 03/11/18 00:00 98.7 98 16 122/66 (84) 97 98.7 03/10/18 23:01 81 15 40 03/10/18 23:00 79 15 132/57 (82) 97 03/10/18 22:26 76 126/66 03/10/18 22:00 77 16 127/66 (86) 97 03/10/18 21:00 80 17 132/65 (87) 97 03/10/18 21:00 82 18 40 03/10/18 20:00 Mechanical Ventilator 03/10/18 20:00 82 03/10/18 20:00 98.3 82 17 135/66 (89) 97 98.3 03/10/18 20:00 40 03/10/18 19:08 89 23 40 03/10/18 19:00 87 23 139/68 (91) 100 03/10/18 18:00 98.8 78 14 121/57 (78) 97 98.8 03/10/18 17:09 86 15 40 03/10/18 17:00 75 16 123/66 (85) 97 03/10/18 16:00 77 03/10/18 16:00 40 03/10/18 16:00 Mechanical Ventilator 03/10/18 16:00 75 15 105/56 (72) 97 Height (Feet): 4 Height (Inches): 0.00 Weight (Pounds): 98 General Appearance: no acute distress, cachetic, other - intubated on mechaincal ventilation HEENT: normocephalic, atraumatic, anicteric, mucous membranes moist Respiratory/Chest: chest wall non-tender, lungs clear, normal breath sounds, no respiratory distress, no accessory muscle use Cardiovascular: normal peripheral pulses, normal rate, regular rhythm, no gallop/murmur, no JVD Abdomen: normal bowel sounds, soft, non tender, no organomegaly, non distended , no mass, no scars Genitourinary: normal external genitalia Extremities: no cyanosis, no clubbing Skin: no rash, no lesions, no ulcers Neurologic/Psychiatric: alert, unresponsiveness Lymphatic: no neck adenopathy, no groin adenopathy Laboratory Tests Test 03/11/18 04:49 Sodium Level 138 MMOL/L (136-145) # Potassium Level 4.1 MMOL/L (3.5-5.1) Chloride Level 102 MMOL/L (98-107) Carbon Dioxide Level 34 MMOL/L (21-32) H Anion Gap 2 mmol/L (5-15) L Blood Urea Nitrogen 19 mg/dL (7-18) H Creatinine 0.4 MG/DL (0.55-1.30) L Estimat Glomerular Filtration Rate mL/min (>60) Glucose Level 93 MG/DL (74-106) Calcium Level 8.1 MG/DL (8.5-10.1) L Current Medications Medications (Trade) Dose Ordered Sig/Rosetta Route PRN Reason Start Time Stop Time Status Last Admin Dose Admin Acetaminophen (Tylenol) 650 mg Q4H PRN GT Mild Pain/Temp > 100.5 02/22/18 08:00 04/09/18 07:59 03/08/18 23:26 Artificial Tears (Akwa-Tears) 2 drop Q2HR PRN BOTH EYES Dry Eyes 03/04/18 19:30 04/03/18 19:29 03/10/18 08:34 Ascorbic Acid (Vitamin C) 500 mg DAILY GT 03/08/18 09:00 04/07/18 08:59 03/11/18 09:18 Clonidine HCl (Catapres Tab) 0.1 mg Q8H PRN GT For High Blood Pressure 03/10/18 15:45 04/09/18 15:44 Dextrose (Dextrose 50%) 25 ml STAT PRN IV Hypoglycemia 03/07/18 17:00 04/06/18 16:59 Dextrose (Dextrose 50%) 50 ml STAT PRN IV Hypoglycemia 03/07/18 17:00 04/06/18 16:59 Digoxin (Lanoxin) 0.125 mg DAILY GT 03/08/18 09:00 04/07/18 08:59 03/11/18 09:19 Diltiazem HCl (Cardizem) 90 mg EVERY 8 HOURS GT 03/08/18 14:00 04/09/18 13:59 03/11/18 15:09 Enoxaparin Sodium (Lovenox) 30 mg Q24H SUBQ 02/22/18 09:00 03/13/18 08:59 03/11/18 09:19 Famotidine (Pepcid) 20 mg DAILY GT 03/11/18 09:00 04/10/18 08:59 03/11/18 09:18 Insulin Aspart (NovoLOG) BEFORE MEALS AND HS SUBQ 03/07/18 21:00 04/06/18 20:59 03/10/18 22:30 Lorazepam (Ativan) 2 mg Q6H PRN GT For Anxiety 03/08/18 11:46 03/15/18 11:45 Dom Hoffman M.D. Mar 11, 2018 15:26
[2018-03-12] VITALS (18 sets, daily range): BP systolic 84–151; BP diastolic 49–75
[2018-03-12] MEDS: NovoLOG Insulin Flexpen SUBQ SCH (05:57)
[2018-03-12] MEDS: dilTIAZem HCl 90mg tab GT SCH (05:58)
--- NOTE | 2018-03-12 07:47 | Cardiac Electrophysiology PN ---
Assessment/Plan Assessment/Plan 1. Paroxysmal atrial fibrillation. In SR on digoxin 0.125 mg daily and Cardizem 90 tid. Off anticoagulation. Echo Nl EF. 2. Hypertension. On Cardizem 90 tid 3. Respiratory failure, on Vent in ICU. Trach vs Terminal extubation pending Conservator decision DNR now. 4. Diabetes, on insulin. 5. Dementia. 6. Dysphagia, status post PEG 7. Sacral decubitus stage III. FU by Dr. Austin. 8. CVA with aphasia and contractures. DW RN Subjective Subjective In ICU on the vent via ETT. Off pressors. Is now DNR. Objective Last 24 Hour Vital Signs Date Time Temp Pulse Resp B/P (MAP) Pulse Ox O2 Delivery O2 Flow Rate FiO2 03/12/18 07:00 88 19 110/58 (75) 99 03/12/18 06:00 87 19 121/71 (88) 99 03/12/18 05:58 90 107/57 03/12/18 05:15 95 20 40 03/12/18 05:00 89 18 115/59 (77) 99 03/12/18 04:00 99.0 88 17 133/70 (91) 99 99.0 03/12/18 04:00 40 03/12/18 04:00 Mechanical Ventilator 03/12/18 04:00 91 03/12/18 03:21 92 19 40 03/12/18 03:00 92 18 149/75 (99) 100 03/12/18 02:00 92 19 84/51 (62) 96 03/12/18 01:05 91 18 40 03/12/18 01:00 94 24 116/52 (73) 99 03/12/18 00:00 94 03/12/18 00:00 Mechanical Ventilator 03/12/18 00:00 40 03/12/18 00:00 99.1 94 19 96/51 (66) 97 99.1 03/11/18 23:05 103 25 40 03/11/18 23:00 100 18 119/59 (79) 99 03/11/18 22:00 95 18 117/63 (81) 99 03/11/18 21:31 91 90/53 03/11/18 21:06 101 22 40 03/11/18 21:00 95 19 90/53 (65) 100 03/11/18 20:00 Mechanical Ventilator 03/11/18 20:00 92 03/11/18 20:00 97.6 98 20 132/58 (82) 96 97.6 03/11/18 20:00 40 03/11/18 19:00 96 20 147/56 (86) 100 03/11/18 18:55 98 24 40 03/11/18 18:00 94 20 121/60 (80) 97 03/11/18 17:00 98.9 94 15 143/60 (87) 98 98.9 03/11/18 16:48 93 18 40 03/11/18 16:01 94 03/11/18 16:00 40 03/11/18 16:00 Mechanical Ventilator 03/11/18 16:00 83 16 115/50 (71) 99 03/11/18 15:22 84 18 40 03/11/18 15:09 99 161/68 03/11/18 15:00 97 20 161/68 (99) 94 03/11/18 14:00 83 19 151/76 (101) 99 03/11/18 13:15 82 15 40 03/11/18 13:00 82 17 130/68 (88) 100 03/11/18 12:00 Mechanical Ventilator 03/11/18 12:00 40 03/11/18 12:00 82 03/11/18 12:00 98.7 80 18 130/62 (84) 99 98.7 03/11/18 11:17 86 18 40 03/11/18 11:00 81 17 134/65 (88) 99 03/11/18 10:00 81 17 134/65 (88) 99 03/11/18 09:23 77 16 40 03/11/18 09:19 81 03/11/18 09:00 76 15 130/72 (91) 97 03/11/18 08:00 Mechanical Ventilator 03/11/18 08:00 40 03/11/18 08:00 79 03/11/18 08:00 98.8 77 16 131/68 (89) 99 98.8 Intake and Output 03/11/18 03/12/18 19:00 07:00 Intake Total 1065 ml 790 ml Output Total 1210 ml 655 ml Balance -145 ml 135 ml Free Water 400 ml 200 ml IV Total 75 ml Tube Feeding 540 ml 540 ml Other 50 ml 50 ml Output Urine Total 1210 ml 655 ml # Bowel Movements 1 2 Objective HEAD AND NECK: No JVD. Orally intubated LUNGS: Coarse rhonchi CARDIOVASCULAR: Regular S1 and S2 with no murmur. ABDOMEN: Status post G-tube. EXTREMITIES: Sacral decubitus. Emmanuel Edgar MD Mar 12, 2018 07:47
--- NOTE | 2018-03-12 09:04 | Nephrology Progress Note ---
Assessment/Plan Assessment/Plan Court ordered mandate for DNR/I and comfort measures only. As such will prepare and d/w Pulm to extubate today Subjective Date patient seen: Mar 12, 2018 Time patient seen: 09:02 ROS Limited/Unobtainable: Yes Allergies: Coded Allergies: No Known Allergies (Verified , 03/10/07) Subjective Patient intubated. Prepare for comfort measure extubation today Objective Last 24 Hour Vital Signs Date Time Temp Pulse Resp B/P (MAP) Pulse Ox O2 Delivery O2 Flow Rate FiO2 03/12/18 07:00 88 19 110/58 (75) 99 03/12/18 06:00 87 19 121/71 (88) 99 03/12/18 05:58 90 107/57 03/12/18 05:15 95 20 40 03/12/18 05:00 89 18 115/59 (77) 99 03/12/18 04:00 99.0 88 17 133/70 (91) 99 99.0 03/12/18 04:00 40 03/12/18 04:00 Mechanical Ventilator 03/12/18 04:00 91 03/12/18 03:21 92 19 40 03/12/18 03:00 92 18 149/75 (99) 100 03/12/18 02:00 92 19 84/51 (62) 96 03/12/18 01:05 91 18 40 03/12/18 01:00 94 24 116/52 (73) 99 03/12/18 00:00 94 03/12/18 00:00 Mechanical Ventilator 03/12/18 00:00 40 03/12/18 00:00 99.1 94 19 96/51 (66) 97 99.1 03/11/18 23:05 103 25 40 03/11/18 23:00 100 18 119/59 (79) 99 03/11/18 22:00 95 18 117/63 (81) 99 03/11/18 21:31 91 90/53 03/11/18 21:06 101 22 40 03/11/18 21:00 95 19 90/53 (65) 100 03/11/18 20:00 Mechanical Ventilator 03/11/18 20:00 92 03/11/18 20:00 97.6 98 20 132/58 (82) 96 97.6 03/11/18 20:00 40 03/11/18 19:00 96 20 147/56 (86) 100 03/11/18 18:55 98 24 40 03/11/18 18:00 94 20 121/60 (80) 97 03/11/18 17:00 98.9 94 15 143/60 (87) 98 98.9 03/11/18 16:48 93 18 40 03/11/18 16:01 94 03/11/18 16:00 40 03/11/18 16:00 Mechanical Ventilator 03/11/18 16:00 83 16 115/50 (71) 99 03/11/18 15:22 84 18 40 03/11/18 15:09 99 161/68 03/11/18 15:00 97 20 161/68 (99) 94 03/11/18 14:00 83 19 151/76 (101) 99 03/11/18 13:15 82 15 40 03/11/18 13:00 82 17 130/68 (88) 100 03/11/18 12:00 Mechanical Ventilator 03/11/18 12:00 40 03/11/18 12:00 82 03/11/18 12:00 98.7 80 18 130/62 (84) 99 98.7 03/11/18 11:17 86 18 40 03/11/18 11:00 81 17 134/65 (88) 99 03/11/18 10:00 81 17 134/65 (88) 99 03/11/18 09:23 77 16 40 03/11/18 09:19 81 Intake and Output 03/11/18 03/12/18 19:00 07:00 Intake Total 1065 ml 790 ml Output Total 1210 ml 655 ml Balance -145 ml 135 ml Free Water 400 ml 200 ml IV Total 75 ml Tube Feeding 540 ml 540 ml Other 50 ml 50 ml Output Urine Total 1210 ml 655 ml # Bowel Movements 1 2 Height (Feet): 4 Height (Inches): 0.00 Weight (Pounds): 77 General Appearance: WD/WN EENT: PERRL/EOMI Neck: non-tender, normal alignment Cardiovascular: normal peripheral pulses, normal rate, regular rhythm Respiratory/Chest: crackles/rales Abdomen: normal bowel sounds, non tender, soft Edema: no edema noted Arm (L), no edema noted Arm (R), no edema noted Leg (L), no edema noted Leg (R), no edema noted Pedal (L), no edema noted Pedal (R), no edema noted Generalized Jorge Graf M.D. Mar 12, 2018 09:04
[2018-03-12] MEDS ORDERED: Sodium Bicarbonate 50 ML in NS 1000ml 1,000 ML IV SCH (09:15)
[2018-03-12] MEDS: Digoxin 0.125mg tab GT SCH (09:16)
[2018-03-12] MEDS: Ascorbic Acid 500mg tab GT SCH (09:16)
[2018-03-12] MEDS: Enoxaparin 30mg Inj SUBQ SCH (09:16)
--- NOTE | 2018-03-12 09:33 | Pulmonology Progress Note ---
Assessment/Plan Assessment/Plan IMPRESSION: 1. Bilateral pneumonia. Last CXR on shows left basilar pneumonia 2. Respiratory failure; intubated; remains hypoxemic with 80% FiO2 3. Hypertension. 4. Diabetes mellitus. 5. Dehydration, hypernatremia 6. Tardive dyskinesia 7. Anemia DISCUSSION: Discussed with PMD Will discuss further today re : DNR Possible terminal extubation today Subjective Interval Events: Notes ewviewed; now DNR Constitutional: Reports: no symptoms HEENT: Repors: no symptoms Respiratory: Reports: no symptoms Gastrointestinal/Abdominal: Reports: no symptoms Allergies: Coded Allergies: No Known Allergies (Verified , 03/10/07) Objective Last 24 Hour Vital Signs Date Time Temp Pulse Resp B/P (MAP) Pulse Ox O2 Delivery O2 Flow Rate FiO2 03/12/18 09:16 78 03/12/18 09:00 74 16 115/59 (77) 99 03/12/18 08:00 98.7 86 18 110/59 (76) 99 98.7 03/12/18 08:00 40 03/12/18 08:00 Mechanical Ventilator 03/12/18 07:00 88 19 110/58 (75) 99 03/12/18 06:00 87 19 121/71 (88) 99 03/12/18 05:58 90 107/57 03/12/18 05:15 95 20 40 03/12/18 05:00 89 18 115/59 (77) 99 03/12/18 04:00 99.0 88 17 133/70 (91) 99 99.0 03/12/18 04:00 40 03/12/18 04:00 Mechanical Ventilator 03/12/18 04:00 91 03/12/18 03:21 92 19 40 03/12/18 03:00 92 18 149/75 (99) 100 03/12/18 02:00 92 19 84/51 (62) 96 03/12/18 01:05 91 18 40 03/12/18 01:00 94 24 116/52 (73) 99 03/12/18 00:00 94 03/12/18 00:00 Mechanical Ventilator 03/12/18 00:00 40 03/12/18 00:00 99.1 94 19 96/51 (66) 97 99.1 03/11/18 23:05 103 25 40 03/11/18 23:00 100 18 119/59 (79) 99 03/11/18 22:00 95 18 117/63 (81) 99 03/11/18 21:31 91 90/53 03/11/18 21:06 101 22 40 03/11/18 21:00 95 19 90/53 (65) 100 03/11/18 20:00 Mechanical Ventilator 03/11/18 20:00 92 03/11/18 20:00 97.6 98 20 132/58 (82) 96 97.6 03/11/18 20:00 40 03/11/18 19:00 96 20 147/56 (86) 100 03/11/18 18:55 98 24 40 03/11/18 18:00 94 20 121/60 (80) 97 03/11/18 17:00 98.9 94 15 143/60 (87) 98 98.9 03/11/18 16:48 93 18 40 03/11/18 16:01 94 03/11/18 16:00 40 03/11/18 16:00 Mechanical Ventilator 03/11/18 16:00 83 16 115/50 (71) 99 03/11/18 15:22 84 18 40 03/11/18 15:09 99 161/68 03/11/18 15:00 97 20 161/68 (99) 94 03/11/18 14:00 83 19 151/76 (101) 99 03/11/18 13:15 82 15 40 03/11/18 13:00 82 17 130/68 (88) 100 03/11/18 12:00 Mechanical Ventilator 03/11/18 12:00 40 03/11/18 12:00 82 03/11/18 12:00 98.7 80 18 130/62 (84) 99 98.7 03/11/18 11:17 86 18 40 03/11/18 11:00 81 17 134/65 (88) 99 03/11/18 10:00 81 17 134/65 (88) 99 Intake and Output 03/11/18 03/12/18 19:00 07:00 Intake Total 1065 ml 790 ml Output Total 1210 ml 655 ml Balance -145 ml 135 ml Free Water 400 ml 200 ml IV Total 75 ml Tube Feeding 540 ml 540 ml Other 50 ml 50 ml Output Urine Total 1210 ml 655 ml # Bowel Movements 1 2 General Appearance: no acute distress HEENT: normocephalic Respiratory/Chest: chest wall non-tender, lungs clear Cardiovascular: normal peripheral pulses Current Medications Medications (Trade) Dose Ordered Sig/Rosetta Route PRN Reason Start Time Stop Time Status Last Admin Dose Admin Acetaminophen (Tylenol) 650 mg Q4H PRN GT Mild Pain/Temp > 100.5 02/22/18 08:00 04/09/18 07:59 03/08/18 23:26 Artificial Tears (Akwa-Tears) 2 drop Q2HR PRN BOTH EYES Dry Eyes 03/04/18 19:30 04/03/18 19:29 03/10/18 08:34 Ascorbic Acid (Vitamin C) 500 mg DAILY GT 03/08/18 09:00 04/07/18 08:59 03/12/18 09:16 Clonidine HCl (Catapres Tab) 0.1 mg Q8H PRN GT For High Blood Pressure 03/10/18 15:45 04/09/18 15:44 Dextrose (Dextrose 50%) 25 ml STAT PRN IV Hypoglycemia 03/07/18 17:00 04/06/18 16:59 Dextrose (Dextrose 50%) 50 ml STAT PRN IV Hypoglycemia 03/07/18 17:00 04/06/18 16:59 Digoxin (Lanoxin) 0.125 mg DAILY GT 03/08/18 09:00 04/07/18 08:59 03/12/18 09:16 Diltiazem HCl (Cardizem) 90 mg EVERY 8 HOURS GT 03/08/18 14:00 04/09/18 13:59 03/12/18 05:58 Enoxaparin Sodium (Lovenox) 30 mg Q24H SUBQ 02/22/18 09:00 03/13/18 08:59 03/12/18 09:16 Famotidine (Pepcid) 20 mg DAILY GT 03/11/18 09:00 04/10/18 08:59 03/12/18 09:16 Insulin Aspart (NovoLOG) BEFORE MEALS AND HS SUBQ 03/07/18 21:00 04/06/18 20:59 03/11/18 17:48 Lorazepam (Ativan) 2 mg Q6H PRN GT For Anxiety 03/08/18 11:46 03/15/18 11:45 Jan Sawant MD Mar 12, 2018 09:33
[2018-03-12] MEDS ORDERED: Morphine Sulfate 2mg/ml Inj IVP PRN ×2 (10:15→17:15)
[2018-03-12] MEDS ORDERED: NS 275ml ONE ×2 (10:50→11:06)
[2018-03-12] MEDS ORDERED: PCA Morphine 1mg/ml 30 ML IV PRN ×2 (11:45→17:00)
--- NOTE | 2018-03-12 12:54 | General Progress Note ---
Assessment/Plan Assessment/Plan Dementia encephalopathy the pt lacks capacity to make decisions haldol prn ativan gt prn Subjective Date patient seen: Mar 12, 2018 Neurologic/Psychiatric: Reports: anxiety, depressed, emotional problems Allergies: Coded Allergies: No Known Allergies (Verified , 03/10/07) Subjective the pt is confused lethargic. the pt is agitated at times Objective Last 24 Hour Vital Signs Date Time Temp Pulse Resp B/P (MAP) Pulse Ox O2 Delivery O2 Flow Rate FiO2 03/12/18 12:15 98.6 03/12/18 12:00 76 03/12/18 12:00 98.6 79 18 116/55 (75) 97 98.6 03/12/18 12:00 Mechanical Ventilator 03/12/18 11:45 Nasal Cannula 2.0 28 03/12/18 11:45 98.9 03/12/18 11:00 71 18 111/58 (75) 99 03/12/18 10:37 73 17 40 03/12/18 10:00 74 16 107/57 (74) 98 03/12/18 09:19 79 19 40 03/12/18 09:16 78 03/12/18 09:00 74 16 115/59 (77) 99 03/12/18 08:00 98.7 86 18 110/59 (76) 99 98.7 03/12/18 08:00 40 03/12/18 08:00 Mechanical Ventilator 03/12/18 08:00 80 03/12/18 07:20 76 17 40 03/12/18 07:00 88 19 110/58 (75) 99 03/12/18 06:00 87 19 121/71 (88) 99 03/12/18 05:58 90 107/57 03/12/18 05:15 95 20 40 03/12/18 05:00 89 18 115/59 (77) 99 03/12/18 04:00 99.0 88 17 133/70 (91) 99 99.0 03/12/18 04:00 40 03/12/18 04:00 Mechanical Ventilator 03/12/18 04:00 91 03/12/18 03:21 92 19 40 03/12/18 03:00 92 18 149/75 (99) 100 03/12/18 02:00 92 19 84/51 (62) 96 03/12/18 01:05 91 18 40 03/12/18 01:00 94 24 116/52 (73) 99 03/12/18 00:00 94 03/12/18 00:00 Mechanical Ventilator 03/12/18 00:00 40 03/12/18 00:00 99.1 94 19 96/51 (66) 97 99.1 03/11/18 23:05 103 25 40 03/11/18 23:00 100 18 119/59 (79) 99 03/11/18 22:00 95 18 117/63 (81) 99 03/11/18 21:31 91 90/53 03/11/18 21:06 101 22 40 03/11/18 21:00 95 19 90/53 (65) 100 03/11/18 20:00 Mechanical Ventilator 03/11/18 20:00 92 03/11/18 20:00 97.6 98 20 132/58 (82) 96 97.6 03/11/18 20:00 40 03/11/18 19:00 96 20 147/56 (86) 100 03/11/18 18:55 98 24 40 03/11/18 18:00 94 20 121/60 (80) 97 03/11/18 17:00 98.9 94 15 143/60 (87) 98 98.9 03/11/18 16:48 93 18 40 03/11/18 16:01 94 03/11/18 16:00 40 03/11/18 16:00 Mechanical Ventilator 03/11/18 16:00 83 16 115/50 (71) 99 03/11/18 15:22 84 18 40 03/11/18 15:09 99 161/68 03/11/18 15:00 97 20 161/68 (99) 94 03/11/18 14:00 83 19 151/76 (101) 99 03/11/18 13:15 82 15 40 03/11/18 13:00 82 17 130/68 (88) 100 Intake and Output 03/11/18 03/12/18 19:00 07:00 Intake Total 1065 ml 790 ml Output Total 1210 ml 655 ml Balance -145 ml 135 ml Free Water 400 ml 200 ml IV Total 75 ml Tube Feeding 540 ml 540 ml Other 50 ml 50 ml Output Urine Total 1210 ml 655 ml # Bowel Movements 1 2 Height (Feet): 4 Height (Inches): 0.00 Weight (Pounds): 77 General Appearance: no apparent distress, lethargic, confused Darling Baker MD Mar 12, 2018 12:54
--- NOTE | 2018-03-12 13:17 | Infectious Diseases Prog Note ---
Assessment/Plan Problems: (1) HCAP (healthcare-associated pneumonia) Assessment & Plan: with chronic respiratory failure , became ventilator dependant . S/P meropenem empiric coverage for pneumonia and sepsis , S/P extubation , now on morphine drip for comfort measure (2) Sacral wound Assessment & Plan: colonized with ESBL producing E coli , klebsiella pneumonia and providenciae stuartii . continue local wound care and dressing changes as per hospital protocol . followed by general surgery. already on meropenem (3) Acute respiratory failure Assessment & Plan: now chronic and ventilator dependant , S/P extubation , on comfort measure only , pulmonary is following. (4) Low grade fever Assessment & Plan: resolved, repeated blood culture is negative. repeated CXR showed improvement in her aeration . sarkar catheter was exchanged , continue tylenol as needed , monitor clinically. keep off antibiotics for now Subjective ROS Limited/Unobtainable: Yes Allergies: Coded Allergies: No Known Allergies (Verified , 03/10/07) Subjective she is extubated early , no longer on mechanical ventilation, still in ICU on morphine drip for comfort measure ,comfortable, not in distress Objective Vital Signs Last 24 Hour Vital Signs Date Time Temp Pulse Resp B/P (MAP) Pulse Ox O2 Delivery O2 Flow Rate FiO2 03/12/18 13:00 80 16 114/49 (70) 86 03/12/18 12:15 98.6 03/12/18 12:00 76 03/12/18 12:00 98.6 79 18 116/55 (75) 97 98.6 03/12/18 12:00 Mechanical Ventilator 03/12/18 11:45 Nasal Cannula 2.0 28 03/12/18 11:45 98.9 03/12/18 11:00 71 18 111/58 (75) 99 03/12/18 10:37 73 17 40 03/12/18 10:00 74 16 107/57 (74) 98 03/12/18 09:19 79 19 40 03/12/18 09:16 78 03/12/18 09:00 74 16 115/59 (77) 99 03/12/18 08:00 98.7 86 18 110/59 (76) 99 98.7 03/12/18 08:00 40 03/12/18 08:00 Mechanical Ventilator 03/12/18 08:00 80 03/12/18 07:20 76 17 40 03/12/18 07:00 88 19 110/58 (75) 99 03/12/18 06:00 87 19 121/71 (88) 99 03/12/18 05:58 90 107/57 03/12/18 05:15 95 20 40 03/12/18 05:00 89 18 115/59 (77) 99 03/12/18 04:00 99.0 88 17 133/70 (91) 99 99.0 03/12/18 04:00 40 03/12/18 04:00 Mechanical Ventilator 03/12/18 04:00 91 03/12/18 03:21 92 19 40 03/12/18 03:00 92 18 149/75 (99) 100 03/12/18 02:00 92 19 84/51 (62) 96 03/12/18 01:05 91 18 40 03/12/18 01:00 94 24 116/52 (73) 99 03/12/18 00:00 94 03/12/18 00:00 Mechanical Ventilator 03/12/18 00:00 40 03/12/18 00:00 99.1 94 19 96/51 (66) 97 99.1 03/11/18 23:05 103 25 40 03/11/18 23:00 100 18 119/59 (79) 99 03/11/18 22:00 95 18 117/63 (81) 99 03/11/18 21:31 91 90/53 03/11/18 21:06 101 22 40 03/11/18 21:00 95 19 90/53 (65) 100 03/11/18 20:00 Mechanical Ventilator 03/11/18 20:00 92 03/11/18 20:00 97.6 98 20 132/58 (82) 96 97.6 03/11/18 20:00 40 03/11/18 19:00 96 20 147/56 (86) 100 03/11/18 18:55 98 24 40 03/11/18 18:00 94 20 121/60 (80) 97 03/11/18 17:00 98.9 94 15 143/60 (87) 98 98.9 03/11/18 16:48 93 18 40 03/11/18 16:01 94 03/11/18 16:00 40 03/11/18 16:00 Mechanical Ventilator 03/11/18 16:00 83 16 115/50 (71) 99 03/11/18 15:22 84 18 40 03/11/18 15:09 99 161/68 03/11/18 15:00 97 20 161/68 (99) 94 03/11/18 14:00 83 19 151/76 (101) 99 03/11/18 13:15 82 15 40 Height (Feet): 4 Height (Inches): 0.00 Weight (Pounds): 77 General Appearance: WD/WN, no acute distress, cachetic HEENT: normocephalic, atraumatic, anicteric, mucous membranes moist Respiratory/Chest: chest wall non-tender, no respiratory distress, no accessory muscle use, decreased breath sounds, crackles/rales Cardiovascular: normal peripheral pulses, normal rate, regular rhythm, no gallop/murmur, no JVD Abdomen: normal bowel sounds, soft, non tender, no organomegaly, non distended , no mass Extremities: no cyanosis, no clubbing Skin: no rash, no lesions, ulcers Neurologic/Psychiatric: unresponsiveness Current Medications Medications (Trade) Dose Ordered Sig/Rosetta Route PRN Reason Start Time Stop Time Status Last Admin Dose Admin Morphine Sulfate 30 ml @ 2 mls/hr PATIENT ACCOUNT LIAISON Protocol PRN IV To Patient Comfort 03/12/18 11:45 03/14/18 11:44 03/12/18 12:48 Morphine Sulfate (Morphine Sulfate) 2 mg Q2H PRN IVP For comfort care 03/12/18 10:15 03/19/18 10:14 03/12/18 11:45 Dom Hoffman M.D. Mar 12, 2018 13:17
[2018-03-12] MEDS ORDERED: Rate Change Narcotic Drip MISC PRN (15:15)
[2018-03-12] MEDS ORDERED: Narcotic Shift Volume MISC SCH ×2 (23:00)
[2018-03-13 00:25] VITALS: BP 143/69
[2018-03-13] MEDS ORDERED: NS 275ml ONE (00:49)
[2018-03-13] MEDS ORDERED: Rate Change Narcotic Drip MISC PRN (09:00)
== END 2018-03-13 00:50 | disposition expired | DRG 720 ==
LOC: EDBD 02:09 → EMR 02:29 → EDBEDREQ 02:49 → ICU 03:05 → EDBEDREQ 03:43 → 2W 02-09 15:40 → ICU 02-22 04:25 → 4E 03-12 16:30
PROC: 5A1955Z Respiratory Ventilation, Greater than 96 Consecutive Hours (ICD-10-PCS; principal; 2018-02-22)
PROC: 0BH17EZ Insertion of Endotracheal Airway into Trachea, Via Natural or Artificial Opening (ICD-10-PCS; principal; 2018-02-22)
DX: A41.9 Sepsis, unspecified organism (principal); J96.21 Acute and chronic respiratory failure with hypoxia; J18.9 Pneumonia, unspecified organism; G93.40 Encephalopathy, unspecified; Z99.11 Dependence on respirator [ventilator] status; J44.0 Chronic obstructive pulmonary disease with (acute) lower respiratory infection; L89.153 Pressure ulcer of sacral region, stage 3; E87.0 Hyperosmolality and hypernatremia; L89.223 Pressure ulcer of left hip, stage 3; I48.0 Paroxysmal atrial fibrillation; T83.511A Infection and inflammatory reaction due to indwelling urethral catheter, initial encounter; N39.0 Urinary tract infection, site not specified; R13.10 Dysphagia, unspecified; F03.90 Unspecified dementia, unspecified severity, without behavioral disturbance, psychotic disturbance, mood disturbance, and anxiety; E11.621 Type 2 diabetes mellitus with foot ulcer; I10 Essential (primary) hypertension; I69.920 Aphasia following unspecified cerebrovascular disease; L97.419 Non-pressure chronic ulcer of right heel and midfoot with unspecified severity; Z93.1 Gastrostomy status; E86.0 Dehydration; E87.6 Hypokalemia; E87.1 Hypo-osmolality and hyponatremia; G24.01 Drug induced subacute dyskinesia
CPT/HCPCS: 36415; 36600; 71045; 71275; 80048; 80053; 80162; 80202; 81003; 82550; 82553; 82803; 82962; 83605; 83735; 83880; 84132; 84484; 85007; 85025; 85610; 85730; 86850; 86900; 86901; 86920; 87040; 87070; 87081; 87086; 87181; 87205; 87324; 93005; 94002; 94003; 94660; 94664; 94760; 99291; J1815; J8499